=== PATIENT | female | born 1950 | race Caucasian/White ===

== ENCOUNTER 2019-12-29 13:34 | Outpatient (CLI) | payer MEDICARE, OTHER, SELFPAY ==
--- NOTE | ~2019-12-29 | MR_ITS ---
EXAMINATION: MR abdomen wo/w con DATE: 12/29/2019 15:12 INDICATION: Pancreatic cyst. TECHNIQUE: Magnetic resonance imaging (MRI) of the abdomen was performed without and with 19 mL Multi Christiano intravenous contrast. Sequences included coronal T2-weighted FS FSE, coronal and axial FS FIEST A, axial T2-weighted FSE, coronal LAVA-flex, axial STIR FSE, axial DWI, axial dual-echo T1-weighted F SPGR, and axial LAVA. Postcontrast sequences included coronal LAVA-flex and a time course of axial LA VA. COMPARISON: CT abdomen 07/20/2019, chest CT 07/10/2018 FINDINGS: There is diffuse hepatic steatosis. The biliary tree is normal status post cholecystectomy. The splee n is normal. There are approximately 7 cystic lesions in the pancreas measuring up to 2.7 cm. The adr enal glands and kidneys are normal. There are no dilated loops of bowel. There are no pathologically enlarged lymph nodes. There is no free intraperitoneal fluid. IMPRESSION: 1. 7 cystic lesions of the pancreas measuring up to 2.7 cm, low risk by imaging. At least the [address] lesions are stable from 07/10/2018. The differential diagnosis includes pseudocyst, intraductal pap illary mucinous neoplasm (IPMN), mucinous cystic neoplasm (MCN), serous cystadenoma, and neuroendocri ne tumor. Abdomen MRI without and with contrast is recommended in 6 months. Reviewed, dictated and finalized at location A. IMPRESSION: 1. 7 cystic lesions of the pancreas measuring up to 2.7 cm, low risk by imaging . At least the 2 largest lesions are stable from 07/10/2018. The differential di agnosis includes pseudocyst, intraductal papillary mucinous neoplasm (IPMN), mu cinous cystic neoplasm (MCN), serous cystadenoma, and neuroendocrine tumor. Abd omen MRI without and with contrast is recommended in 6 months.
[2019-12-29 14:14] LABS: Estimated Glomerular Filt Rate 45
== END 2019-12-29 13:35 | disposition home or self-care (01) ==
PROVIDERS: PCP Family Medicine; Visit Provider Nurse Practitioner Adult Health
DX: K86.2 Cyst of pancreas (principal)
CPT/HCPCS: 36415; 74183; A9577

== ENCOUNTER 2020-04-15 09:47 | Outpatient (CLI) | payer MEDICARE, OTHER, SELFPAY ==
--- NOTE | ~2020-04-15 | CT_ITS ---
EXAMINATION: CTA neck EXAM DATE: 04/15/2020 10:39 INDICATION: Partial retinal artery occlusion both eyes.. TECHNIQUE: Spiral CTA of the carotid arteries was performed with intravenous injection 100cc of Omnip aque 350. Axial, coronal, sagittal reformatted images reviewed. Additional reformatted images creat ed on dedicated 3-D workstation. NASCET comparable standard used to assess the degree of arterial st enosis. The dose-length product (DLP) for this examination was 543.42 mGy-cm. The exposure was tail ored according to patient size (auto mA exposure control), and iterative reconstruction (ASIR) was us ed as additional dose reduction technique. Comparison is made to prior examination from 07/20/2019. FINDINGS: There is large amount of bilateral carotid bulb plaque, both calcified and noncalcified. Ri ght carotid bulb has 56% stenosis, not significantly changed. Left carotid bulb as 57% stenosis, mild progression compared to June (previously estimated at 40%). There is no carotid or vertebral ar terial dissection. Scattered bilateral carotid siphon arterial sclerosis. The vertebral arteries are codominant. Lung apices and sinuses are clear. Bilateral cataract surgery. Cervical spondylosis. IMPRESSION: 1. Right carotid bulb 56% stenosis. 2. Left carotid bulb 57% stenosis. Reviewed, dictated and finalized at location B.
[2020-04-15 10:22] LABS: Estimated Glomerular Filt Rate 37
== END 2020-04-15 09:48 | disposition home or self-care (01) ==
PROVIDERS: PCP Family Medicine; Referring Provider Internal Medicine Gastroenterology; Visit Provider Nurse Practitioner Adult Health
DX: H34.213 Partial retinal artery occlusion, bilateral (principal); I65.23 Occlusion and stenosis of bilateral carotid arteries
CPT/HCPCS: 36415; 70498; Q9967

== ENCOUNTER 2020-04-18 13:27 | Outpatient (CLI) | payer MEDICARE, OTHER, SELFPAY ==
--- NOTE | ~2020-04-18 | CT_ITS ---
EXAMINATION: CTA chest abdomen DATE: 04/18/2020 14:42 INDICATION: Partial retinal artery occlusion, history of pancreatic cysts TECHNIQUE: Computed tomographic angiography (CTA) of the chest and abdomen was performed with 100 mL Omnipque-350 intravenous contrast. Maximum intensity projection 3D-reconstructions of the aorta and o ther arteries were constructed by the technologist on a separate workstation. The dose-length product (DLP) was 1165.22 mGy-cm. Automated exposure control and iterative reconstruction technique were emp loyed. COMPARISON: None. FINDINGS: CHEST CTA: There is no aneurysm or dissection of the thoracic aorta. Calcified atherosclerosis is noted. There a re also coronary artery calcifications. There is mild dependent atelectasis. No pleural effusion or p neumothorax is identified. No pathologically enlarged thoracic lymph nodes are identified. The heart size is normal. There is enlargement of the main and central pulmonary arteries, consistent with pulm onary hypertension. There is moderate thoracic spondylosis. ABDOMEN CTA: There is calcified atherosclerosis of the aorta and many of the other arteries. There is no aneurysm or dissection of the aorta. The celiac axis, superior mesenteric artery, and inferior mesenteric josy ry are normal in caliber. There are single renal arteries bilaterally. The liver is diffusely low in attenuation when compared with the spleen, consistent with hepatic steatosis. The gallbladder is surg ically absent. The spleen and adrenal glands are normal. There are multiple stable cysts of the pancr eas which have been previously described. There are no pathologically enlarged abdominal lymph nodes. There is no free intraperitoneal gas or evidence of bowel obstruction. A large volume of colonic sto ol is present. There is severe lumbar spondylosis. IMPRESSION: 1. Mild atherosclerosis of the thoracic and abdominal aorta without aneurysm or dissection. 2. Multiple cystic lesions of the pancreas for which differential and follow-up recommendations have been previously given. Reviewed, dictated and finalized at location A.
[2020-04-18 14:35] LABS: Estimated Glomerular Filt Rate 37
== END 2020-04-18 13:28 | disposition home or self-care (01) ==
PROVIDERS: PCP Family Medicine; Visit Provider Nurse Practitioner Adult Health
DX: H34.213 Partial retinal artery occlusion, bilateral (principal); I70.0 Atherosclerosis of aorta
CPT/HCPCS: 36415; 71275; 74175; Q9967

== ENCOUNTER 2020-09-01 14:08 | Observation (INO) | payer MEDICARE, OTHER, SELFPAY ==
--- NOTE | ~2020-09-01 | XR_ITS ---
XR abdomen/kub 1V DATE: 09/01/2020 19:47 INDICATION: Abdominal pain, diarrhea, constipation TECHNIQUE: 2 supine AP views of the abdomen and pelvis COMPARISON: 04/18/2020 CTA chest and abdomen FINDINGS: Surgical clips overlie the right upper quadrant, consistent with cholecystectomy, documente d on the 04/18/2020 CT examination of the abdomen. There is interval mild gaseous distention of some small bowel segments but no apparent abnormal dilat ation of the small or large bowel. Findings suggest mild adynamic ileus, less likely an early or part ial small bowel obstruction. The psoas shadows are intact. No visceromegaly is evident. No significant abnormal calcification is n oted. IMPRESSION: Nonspecific mild small bowel gaseous distention Status post cholecystectomy Reviewed, dictated and finalized at [facility]. Reviewed, dictated and finalized at location A. ESSING ARCHIVIST
[2020-09-01 14:14] VITALS: BP 124/53; PULSE 97; RESP 18; TEMP 37.1; O2SAT 97
--- NOTE | 2020-09-01 14:26 | ED.NAVMDI ---
HPI - Nausea/Vomiting/Diarrhea General Chief complaint: Nausea/Vomiting/Diarrhea Stated complaint: dehydration Time Seen by Provider: 09/01/20 14:16 Source: patient Mode of arrival: ambulatory Limitations: no limitations History of Present Illness HPI Narrative: Patient 69-year-old female complaining of diarrhea described as loose watery nonbloody started early this morning. Patient states that she has had approximately 6-7 episodes of loose watery stools since this morning. She denies any abdominal pain, nausea vomiting, fever or chills. Related Data Home Medications Medication Instructions Recorded Confirmed amlodipine 09/01/20 fluticasone propion-salmeterol INHALATION 09/01/20 [Advair HFA] hydrochlorothiazide 25 mg PO DAILY 09/01/20 levothyroxine [Levoxyl] 112 mcg PO DAILY 09/01/20 losartan 09/01/20 metformin mg PO 09/01/20 montelukast mg 09/01/20 piroxicam 20 mg PO DAILY 09/01/20 09/01/20 rosuvastatin mg 09/01/20 tolterodine [Detrol LA] mg PO 09/01/20 Allergies Allergy/AdvReac Type Severity Reaction Status Date / Time No Known Allergies Allergy Unverified 07/30/18 16:06 Review of Systems Review of Systems: All systems reviewed & are unremarkable except as noted in HPI and below Constitutional: Constitutional: Denies body ache(s), Denies chills, Denies excessive sweating, Denies fatigue, Denies fever(s), Denies headache(s), Denies lethargy, Denies malaise, Denies weakness and Denies weight loss Eyes: Eyes: Denies blurry vision, Denies change in vision and Denies loss of vision ENT: Denies dizziness, Denies ear discharge, Denies headache(s), Denies lip swelling, Denies epistaxis, Denies nasal congestion, Denies neck pain, Denies throat swelling and Denies tongue swelling Cardiovascular: Cardiovascular: Denies chest pain, Denies chest pain at rest, Denies chest pain with activity, Denies diaphoresis, Denies rapid heart rate, Denies edema, Denies irregular heart rhythm, Denies lightheadedness, Denies palpitations, Denies dyspnea and Denies dyspnea on exertion Respiratory: Respiratory: Denies chest congestion, Denies cough, Denies hemoptysis, Denies dyspnea and Denies dyspnea on exertion Gastrointestinal: Gastrointestinal: Denies abdominal pain, Denies melena, Denies hematochezia, Denies nausea, Denies vomiting and Denies hematemesis Musculoskeletal: Musculoskeletal: Denies abnormal gait, Denies deformity, Denies joint swelling, Denies limited range of motion, Denies neck pain and Denies numbness Neurologic: Denies Abnormal speech present, Denies abnormal gait, Denies confusion, Denies dizziness, Denies headache(s), Denies focal weakness, Denies loss of vision, Denies numbness, Denies Other visual disturbances, Denies Sensory deficit (Neuro) and Denies weakness Psychiatric: Psychiatric: Denies confusion, Denies depression, Denies auditory hallucinations, Denies homicidal ideation and Denies suicidal ideation Endocrine: Endocrine: Denies cold intolerance, Denies excessive sweating, Denies fatigue, Denies heat intolerance and Denies palpitations Hematologic/Lymphatic: Hematologic/Lymphatic: Denies easy bleeding and Denies easy bruising Allergic/Immunologic: Allergic/Immunologic: Denies lip swelling, Denies throat swelling and Denies tongue swelling [facility] Family History Family History (Updated 04/04/18 @ 15:47 by DOCTOR UNKNOWN) Father Family history of lung cancer Mother Family history of irritable bowel syndrome Other Cerebrovascular accident Diabetes mellitus Family history of arthritis Family history of cardiovascular disease Family history of congestive heart failure Family history of hearing loss Social History Social History Smoking status: Never smoker Alcohol intake: never Exam Const: General: cooperative, healthy appearing, comfortable, no acute distress, well developed, alert and awake; No confusion Orientation/consciousness: oriented to person, oriented to efrain
[2020-09-01 14:38] LABS: Basophils Percent Auto 0.3 % (0.2-1.2); Eosinophils Absolute Auto 0.1 K/mm3 (0-0.3); Eosinophils Percent Auto 1.2 % (0-4.4); Hematocrit 39.7 % (37.0-47.0); Hemoglobin 12.8 g/dL (12.0-15.0); Immature Granulocyte Absolute 0.08 K/mm3 (0.00-0.031); Immature Granulocyte Percent A 1.4 % (0-0.5); Lymphocytes Absolute Auto 0.76 K/mm3 (0.9-3.2); Lymphocytes Percent Auto 13.1 % (18.3-44.2); Mean Corpuscular HGB Conc 32.2 g/dl (32-36); Mean Corpuscular Volume 80.5 fl (80-100); Mean Platelet Volume 10.1 fl (7.4-10.4); Monocytes Absolute Auto 0.7 K/mm3 (0.1-0.6); Monocytes Percent Auto 12.7 % (2.6-8.5); Neutrophils Absolute Auto 4.2 K/mm3 (1.3-6.7); Neutrophils Percent Auto 71.3 % (45.5-73.1); Platelet Count Result 169 k/mm3 (150-375); Red Blood Count 4.93 M/mm3 (4.2-5.4); Red Cell Distribution Width 13.1 % (11.5-14.5); White Blood Count 5.8 K/mm3 (4.5-10.0)
[2020-09-01 14:45] LABS: Alanine Aminotransferase 57 U/L (4-35); Alkaline Phosphatase 85 U/L (38-126); Anion Gap 13 mmol/L (8-16); Aspartate Amino Transferase 64 U/L (14-36); Bilirubin,Total 0.5 mg/dL (0.2-1.3); Blood Urea Nitrogen 42 mg/dL (7-17); Calcium 9.4 mg/dL (8.4-10.2); Carbon Dioxide 18 mmol/L (22-30); Chloride 105 mmol/L (98-107); Estimated CRCL calculation 29 ml/min; Estimated Glomerular Filt Rate 28; Glucose 132 mg/dL (65-105); Lipase 117 U/L (23-300); Potassium 3.8 mmol/L (3.4-5.0); Sodium 136 mmol/L (137-145)
[2020-09-01] MEDS: SODIUM CHLORIDE 0.9% IV 1,000 ML 999 ML IV CONT (14:49)
[2020-09-01 15:55] LABS: Add Urine Microscopic? YES; Appearance Urine Cloudy (Clear); Bilirubin Urine Negative (Negative); Blood Urine Negative (Negative); Color Urine Yellow (Yellow); Glucose Urine UA Negative (Negative); Hyaline Casts Urine 30-49 /lpf; Ketones Urine Negative (Negative); Leukocyte Esterase Ur 3+ LEU/UL (Negative); Mucus Urine Rare /lpf; Nitrate Urine Negative (Negative); Protein Urine 1+ mg/dL (Negative); Specific Grav Ur 1.015 (1.001-1.035); Squamous Epithelial Cell Urine Many /hpf (Few); Transitional Epi Cells Urine Few /hpf (None Seen); Urobilinogen Urine Negative mg/dL (<2.0); WBC Urine >75 /hpf
[2020-09-01] MEDS: CIPROFLOXACIN 250 MG TABLET PO (16:56)
[2020-09-01 16:59] VITALS: BP 122/78; PULSE 78; RESP 18; O2SAT 99
--- NOTE | 2020-09-01 18:35 | ADMGEN ---
This patient, Katelin Edgar, was admitted to Medical Room 245-. Patient/family oriented to hospital policies and general routines including ID bracelet, bed and alarms, visiting hours, pain management, procedures, bathroom and other care routines, personal items, smoking policy, room service/diet, and visiting hours. Information on how to activate the Rapid Response Team has been discussed. Patient/Family are encouraged to report perceived risks to care and to ask questions if they do not understand what they are told or what they should do.
[2020-09-01 18:46] VITALS: BP 133/52; PULSE 85; RESP 16; TEMP 35.7; O2SAT 98
[2020-09-01 19:04] LABS: Glucose Point of Care 123 (65-105)
--- NOTE | 2020-09-01 19:25 | PM.IMHP ---
H&P: HPI History of Present Illness Date/Time: 09/01/20 19:25 Chief complaint: Acute Kidney Injury/Dehydration Narrative: This is a pleasant 69 year female with known past medical history of hypothyroidism, hypertension, hyperlipidemia, diastolic heart failure, and steatohepatitis among other comorbidities who presented to the hospital today with a complaint of 4-5 loose watery stools today. She also had diarrhea yesterday. She believes that she might have irritable bowel syndrome because she will go days where she is constipated and does not have any bowel movements and then have diarrhea. She last had a colonoscopy about 3 years ago which demonstrated bleeding hemorrhoids. today her only other complaint is that she has had chills for the past couple of days although she denies any overt fever. She also denies any nausea or vomiting and has tolerated a full liquid diet tonight in the hospital. Today she also complains of mild left lower quadrant abdominal discomfort and abdominal bloating. The patient was evaluated emergency room today and routine labs demonstrated acute dehydration with acute renal failure. Urinalysis was suspicious for possible urinary tract infection. On my encounter with the patient tonight she still is complaining of mild left lower quadrant abdominal discomfort and has asked if we could have her computer aided design technician, Dr. main see her tomorrow. The patient denies any dysuria, hematuria, urinary frequency, rectal bleeding, or black tarry stools. The patient has been treated with IV fluids and IV antibiotics in the emergency room this evening and we have been asked to admit the patient to the hospital for further care. She has no other complaints at this time. Review of Systems Review of Systems: All systems reviewed & are unremarkable except as noted in HPI and below PMFSH Past Medical History Medical History (Updated 09/01/20 @ 19:41 by Faheem Toth MD) Aortic stenosis Chronic low back pain COPD (chronic obstructive pulmonary disease) Depression Diastolic congestive heart failure Hyperlipidemia Hypertension Hypothyroidism Obstructive sleep apnea Steatohepatitis Surgical History Surgical History (Updated 09/01/20 @ 19:35 by Faheem Toth MD) H/O colonoscopy H/O: hysterectomy History of cholecystectomy Hx of cataract surgery Hx of tonsillectomy Family History Family History Father Family history of lung cancer Mother Family history of irritable bowel syndrome Other Cerebrovascular accident Diabetes mellitus Family history of arthritis Family history of cardiovascular disease Family history of congestive heart failure Family history of hearing loss Social History Social History Smoking status: Never smoker Alcohol intake: never Substance use: never Gender identity (if verbalized by the patient): Female Spiritual care concerns: No Meds Home Medications and Allergies Home Medications Medication Instructions Recorded Confirmed Type amlodipine 09/01/20 History aspirin [Adult Aspirin] 81 mg PO DAILY 09/01/20 09/01/20 History fluticasone propion-salmeterol INHALATION 09/01/20 History [Advair HFA] hydrochlorothiazide 25 mg PO DAILY 09/01/20 09/01/20 History levothyroxine [Levoxyl] 112 mcg PO DAILY 09/01/20 History losartan 09/01/20 History metformin mg PO 09/01/20 History methylcellulose (laxative) [Fiber 500 mg PO BID 09/01/20 09/01/20 History Therapy Laxative] montelukast mg 09/01/20 History nystatin 1 applic TOPICAL BID PRN 09/01/20 09/01/20 History pimecrolimus 1 applic TOPICAL BID PRN 09/01/20 09/01/20 History piroxicam 20 mg PO DAILY 09/01/20 09/01/20 History quetiapine 25 mg PO HS 09/01/20 09/01/20 History rosuvastatin mg 09/01/20 History tolterodine [Detrol LA] mg PO 09/01/20 History Allergies Allergy/AdvReac Type Severity Reaction Status Date / Time No K
[2020-09-01] MEDS: LACTATED RINGERS 1,000 ML 100 ML IV CONT (20:22)
[2020-09-01] MEDS: ROSUVASTATIN 10 MG TABLET 20 MG PO (21:09)
[2020-09-01] MEDS: QUEtiapine FUMARATE 25 MG TABLET PO (21:09)
[2020-09-01 21:23] LABS: Glucose Point of Care 137 (65-105)
[2020-09-01 22:00] VITALS: BP 117/52; PULSE 78; RESP 18; TEMP 36.6; O2SAT 98
[2020-09-01] MEDS: MELATONIN 3 MG TABLET PO (22:36)
[2020-09-02 05:52] LABS: Basophils Percent Auto 0.2 % (0.2-1.2); Eosinophils Absolute Auto 0.2 K/mm3 (0-0.3); Eosinophils Percent Auto 3.3 % (0-4.4); Hematocrit 36.8 % (37.0-47.0); Hemoglobin 11.9 g/dL (12.0-15.0); Immature Granulocyte Absolute 0.01 K/mm3 (0.00-0.031); Immature Granulocyte Percent A 0.2 % (0-0.5); Lymphocytes Absolute Auto 1.09 K/mm3 (0.9-3.2); Lymphocytes Percent Auto 19.9 % (18.3-44.2); Mean Corpuscular HGB Conc 32.3 g/dl (32-36); Mean Corpuscular Hemoglobin 25.9 pg (26-34); Mean Corpuscular Volume 80.2 fl (80-100); Mean Platelet Volume 10.4 fl (7.4-10.4); Monocytes Absolute Auto 0.8 K/mm3 (0.1-0.6); Monocytes Percent Auto 14.1 % (2.6-8.5); Neutrophils Absolute Auto 3.4 K/mm3 (1.3-6.7); Neutrophils Percent Auto 62.3 % (45.5-73.1); Platelet Count Result 153 k/mm3 (150-375); Red Blood Count 4.59 M/mm3 (4.2-5.4); Red Cell Distribution Width 12.9 % (11.5-14.5); White Blood Count 5.5 K/mm3 (4.5-10.0)
[2020-09-02] MEDS: LACTATED RINGERS 1,000 ML 100 ML IV CONT (05:56)
[2020-09-02] MEDS: LEVOTHYROXINE SODIUM 112 MCG TABLET PO (05:57)
[2020-09-02 06:00] VITALS: BP 136/50; PULSE 76; RESP 18; TEMP 36.9; O2SAT 98
[2020-09-02 06:08] LABS: Alanine Aminotransferase 49 U/L (4-35); Albumin Level 3.3 g/dL (3.5-5.1); Alkaline Phosphatase 73 U/L (38-126); Anion Gap 8 mmol/L (8-16); Aspartate Amino Transferase 56 U/L (14-36); Bilirubin,Total 0.3 mg/dL (0.2-1.3); Blood Urea Nitrogen 28 mg/dL (7-17); Calcium 9.2 mg/dL (8.4-10.2); Carbon Dioxide 24 mmol/L (22-30); Chloride 107 mmol/L (98-107); Estimated CRCL calculation 43 ml/min; Estimated Glomerular Filt Rate 45; Glucose 100 mg/dL (65-105); Potassium 3.2 mmol/L (3.4-5.0); Sodium 139 mmol/L (137-145)
[2020-09-02 07:27] LABS: Glucose Point of Care 108 (65-105)
[2020-09-02] MEDS: POTASSIUM CHLORIDE 20 MEQ TABLET PO (09:10)
[2020-09-02] MEDS: TOLTERODINE TARTRATE LA 4 MG CAP.ER.24H PO (09:10)
[2020-09-02] MEDS: amLODIPine BESYLATE 5 MG TABLET 10 MG PO (09:11)
[2020-09-02 11:38] LABS: Glucose Point of Care 152 (65-105)
--- NOTE | 2020-09-02 13:00 | WPDGICN ---
Assessment and Plan Assessment and plan (1) Diarrhea: Qualifiers: Diarrhea type: unspecified type Qualified Code(s): R19.7 - Diarrhea, unspecified Code(s): R19.7 - Diarrhea, unspecified Status: Acute Assessment and Plan: Patient has alteration in bowel habits with diarrhea alternating with constipation she only had 1 day of diarrhea prior to admission. Should diarrhea persist would recommend stool cultures be obtained however at this point would advise fiber supplementation. Perhaps Kaopectate may be of some benefit. Follow-up electively in the office is advised for what appears to be irritable bowel syndrome. (2) Acute dehydration: Code(s): E86.0 - Dehydration Status: Acute Assessment and Plan: Patient noted to have azotemia on presentation. Likely related to the head dehydration. She appears quite improved with overnight IV fluid rehydration. Hopefully she can be discharged today if others agree in diet tolerated. (3) COPD (chronic obstructive pulmonary disease): Qualifiers: COPD type: unspecified COPD Qualified Code(s): J44.9 - Chronic obstructive pulmonary disease, unspecified Code(s): J44.9 - Chronic obstructive pulmonary disease, unspecified Status: Chronic (4) Diastolic congestive heart failure: Qualifiers: Heart failure chronicity: chronic Qualified Code(s): I50.32 - Chronic diastolic (congestive) heart failure Code(s): I50.30 - Unspecified diastolic (congestive) heart failure Status: Chronic (5) Elevated liver enzymes: Code(s): R74.8 - Abnormal levels of other serum enzymes Status: Chronic Assessment and Plan: Very mild elevation of serum transaminases are noted. This been attributed to nonalcoholic steatohepatitis. Plan is to follow conservatively at this point. These can be monitored as an outpatient. GI Consult Note Consult date/time: 09/02/20 13:00 HPI: Katelin Edgar is a 69 year old female Seen in evaluation at the request of the hospitalist service. Patient has a history of irregular bowel movements. This has been attributed to irritable bowel syndrome. She states she had diarrhea briefly for 1 day prior to admission the hospital. For this reason presented the emergency room where she was found to have modest azotemia. She was admitted the hospital for IV rehydration. Patient states that today she has had no additional bowel movements. She denies any abdominal pain or fever. She denies any nausea or vomiting. She typically has diarrhea alternating with constipation. She denies any blood loss. She denies any fever. She has had no recent travel. Review of Systems Review of Systems: All systems reviewed & are unremarkable except as noted in HPI and below PMFSH Past Medical History Medical History (Updated 09/01/20 @ 19:41 by Faheem Toth MD) Aortic stenosis Chronic low back pain COPD (chronic obstructive pulmonary disease) Depression Diastolic congestive heart failure Hyperlipidemia Hypertension Hypothyroidism Obstructive sleep apnea Steatohepatitis Surgical History Surgical History (Updated 09/01/20 @ 19:35 by Faheem Toth MD) H/O colonoscopy H/O: hysterectomy History of cholecystectomy Hx of cataract surgery Hx of tonsillectomy Family History Family History Father Family history of lung cancer Mother Family history of irritable bowel syndrome Other Cerebrovascular accident Diabetes mellitus Family history of arthritis Family history of cardiovascular disease Family history of congestive heart failure Family history of hearing loss Social History Social History Smoking status: Never smoker Alcohol intake: never Substance use: never Gender identity (if verbalized by the patient): Female Spiritual care concerns: No Meds Home Medications and Allergies Home
[2020-09-02 14:00] VITALS: BP 110/62; PULSE 79; RESP 14; TEMP 36.7; O2SAT 100
[2020-09-02 16:12] LABS: Glucose Point of Care 119 (65-105)
--- NOTE | 2020-09-02 17:48 | PM.DS ---
DS: Admitting Diagnosis Admitting Diagnosis Admitting Diagnosis: Acute Kidney Injury/Dehydration DS: Discharge Diagnosis Discharge Diagnosis (1) Diarrhea: Qualifiers: Diarrhea type: unspecified type Qualified Code(s): R19.7 - Diarrhea, unspecified Code(s): R19.7 - Diarrhea, unspecified Status: Acute Assessment and Plan: Patient presents to the emergency room complaints of diarrhea. KUB showed nonspecific mild small bowel distention. Patient most likely had gastroenteritis causing a mild adynamic ileus. Cannot exclude a component of irritable bowel syndrome. Patient has not had any further diarrhea since admission. She was seen by GI. Was started on clear liquid diet and diet advanced. She tolerated this well. No clinical findings or other symptoms to suggest partial small-bowel obstruction. Patient is eager for discharge. She is passing flatus. Patient will be discharged home on 09/02/2020 (2) Abdominal discomfort in left lower quadrant: Code(s): R10.32 - Left lower quadrant pain Status: Acute Assessment and Plan: Related to above. (3) Acute kidney injury: Code(s): N17.9 - Acute kidney failure, unspecified Status: Acute Assessment and Plan: BUN 42 and Cr 1.8 on admission secondary to acute dehydration. Started on IV fluid and Cr now 1.2 which is within her baseline. (4) Acute dehydration: Code(s): E86.0 - Dehydration Status: Acute Assessment and Plan: As above. Better with rehydration. (5) Elevated liver enzymes: Code(s): R74.8 - Abnormal levels of other serum enzymes Status: Chronic Assessment and Plan: AST 64 and ALT 57 on admission. Trending down on repeat. Appears to be secondary to the patient has a known history of steatosis. Monitor LFTs as outpatinet. (6) Abnormal urinalysis: Code(s): R82.90 - Unspecified abnormal findings in urine Status: Acute Assessment and Plan: UA noted and showing >75WBC and 3+LE but with many squamous cells. UCx pending. Treated with IV ceftriaxone x2 doses. Continue as Cipro at dicharge. Follow up on UCx (7) Hypertension: Qualifiers: Hypertension type: unspecified Qualified Code(s): I10 - Essential (primary) hypertension Code(s): I10 - Essential (primary) hypertension Status: Chronic Assessment and Plan: Patient's blood pressure was followed closely. Blood pressure remains well controlled. We continued amlodipine. We held hydrochlorothiazide and losartan secondary to acute renal failure. (8) Hyperlipidemia: Qualifiers: Hyperlipidemia type: unspecified Qualified Code(s): E78.5 - Hyperlipidemia, unspecified Code(s): E78.5 - Hyperlipidemia, unspecified Status: Chronic Assessment and Plan: Stable. LFTs only mildly elevated. Crestor was continued. (9) Hypothyroidism: Qualifiers: Hypothyroidism type: unspecified Qualified Code(s): E03.9 - Hypothyroidism, unspecified Code(s): E03.9 - Hypothyroidism, unspecified Status: Chronic Assessment and Plan: Stable. Continue levothyroxine. (10) COPD (chronic obstructive pulmonary disease): Qualifiers: COPD type: unspecified COPD Qualified Code(s): J44.9 - Chronic obstructive pulmonary disease, unspecified Code(s): J44.9 - Chronic obstructive pulmonary disease, unspecified Status: Chronic Assessment and Plan: Stable. We continued bronchodilators as needed. (11) Diastolic congestive heart failure: Qualifiers: Heart failure chronicity: chronic Qualified Code(s): I50.32 - Chronic diastolic (congestive) heart failure Code(s): I50.30 - Unspecified diastolic (congestive) heart failure Status: Chronic Assessment and Plan: Currently compensated. We monitored her fluid status closely. DS: S
--- NOTE | 2020-09-05 10:07 | PC.NURSE ---
Urine culture shows 2 organisms with low colony count. Possible contamination. Dr. Alia marie.
== END 2020-09-02 18:58 | disposition home or self-care (01) ==
LOC: ANHED 16:56 → ANH2MED 17:44
PROVIDERS: Family Medicine; Admitting Provider Family Medicine; Emergency Provider Emergency Medicine; PCP Family Medicine; Visit Provider Internal Medicine
DX: N17.9 Acute kidney failure, unspecified (principal); E86.0 Dehydration; R19.7 Diarrhea, unspecified; R10.32 Left lower quadrant pain; R82.90 Unspecified abnormal findings in urine; R74.8 Abnormal levels of other serum enzymes; I50.32 Chronic diastolic (congestive) heart failure; E03.9 Hypothyroidism, unspecified; E78.5 Hyperlipidemia, unspecified; K75.81 Nonalcoholic steatohepatitis (NASH); I11.0 Hypertensive heart disease with heart failure; J44.9 Chronic obstructive pulmonary disease, unspecified; G89.29 Other chronic pain; M54.5 Low back pain; G47.33 Obstructive sleep apnea (adult) (pediatric)
CPT/HCPCS: 36415; 74018; 80053; 81001; 83690; 85025; 87077; 87086; 87088; 87186; 96361; 96365; 99285; A9270; G0378; J0696; J7030; J7120

== ENCOUNTER 2020-10-29 08:49 | Outpatient (CLI) | payer MEDICARE, OTHER, SELFPAY ==
--- NOTE | ~2020-10-29 | US_ITS ---
US right upper quadrant INDICATION: Elevated liver function tests. PROCEDURE: Realtime right upper abdominal ultrasound. COMPARISON: Ultrasound dated 06/09/2007 FINDINGS: The pancreas is normal without focal mass or pancreatic ductal dilation. Liver echotexture is normal without focal mass or intrahepatic biliary dilatation. There is normal directional flow i n the portal vein. Gallbladder is surgically absent. Common bile duct measures 4 mm. IMPRESSION: 1: Unremarkable limited abdominal ultrasound. Reviewed, dictated and finalized at location A. TH OFFICER
== END 2020-10-29 08:50 | disposition home or self-care (01) ==
PROVIDERS: PCP Family Medicine; Visit Provider Internal Medicine Endocrinology, Diabetes & Metabolism
DX: R74.01 Elevation of levels of liver transaminase levels (principal)
CPT/HCPCS: 76705

== ENCOUNTER → 2021-02-25 15:12 | Outpatient (CLI) | payer MEDICARE, OTHER, SELFPAY ==
--- NOTE | ~2021-02-25 | XR_ITS ---
EXAMINATION: XR knee LT 2V, XR knee RT 2V DATE: 02/25/2021 15:42 INDICATION: Bilateral posterior knee pain. TECHNIQUE: 1. AP and lateral views of the left knee were obtained. 2. AP and lateral views of the right knee were obtained. COMPARISON: None. FINDINGS: Right knee: Right total knee arthroplasty with patellar resurfacing which appears well seated and in near anatomi c alignment. No periprosthetic lucency to suggest loosening or infection. No fracture. Small right kn ee joint effusion. Left knee: Alignment is normal. No fracture. Small marginal osteophytes at the medial and lateral compartments w ith relatively preserved joint spaces. Additional tiny patellar marginal osteophytes. Moderate-sized enthesophyte at the quadriceps insertion to the proximal patella. No left knee joint effusion. Subcut aneous varicosities along the medial side of the distal left thigh, knee and proximal calf. IMPRESSION: 1. Mild tricompartmental osteoarthritis at the left knee with no joint effusion or acute osseous abno rmality. 2. Right total knee arthroplasty with small right knee joint effusion but no acute osseous abnormalit y. Reviewed, dictated and finalized at location A. IMPRESSION: 1. Mild tricompartmental osteoarthritis at the left knee with no joint effusion or acute osseous abnormality. 2. Right total knee arthroplasty with small right knee joint effusion but no ac [place] osseous abnormality.
== END ==
PROVIDERS: PCP Family Medicine; Visit Provider Family Medicine
DX: M25.561 Pain in right knee (principal); M25.562 Pain in left knee; M17.0 Bilateral primary osteoarthritis of knee; Z96.651 Presence of right artificial knee joint; M25.461 Effusion, right knee
CPT/HCPCS: 73560

== ENCOUNTER → 2021-05-26 09:12 | Outpatient (CLI) | payer MEDICARE, OTHER, SELFPAY ==
--- NOTE | ~2021-05-26 | MMUS_ITS ---
EXAMINATION: MM diagnostic arash BI w ginger, US breast BI complete HISTORY: Follow-up breast asymmetries TECHNIQUE: Additional 3-D tomosynthesis images of the breasts were performed and synthetic 2-D images were generated. CAD analysis was submitted and interpreted. High resolution complete bilateral breas t ultrasound was performed. COMPARISON: Comparison to multiple prior studies sequentially, with oldest reviewed study dated 02/2017. BREAST PARENCHYMAL COMPOSITION: The breasts are heterogenously dense, which may obscure small masses. FINDINGS: MAMMOGRAPHIC FINDINGS: There are no suspicious masses, calcifications or architectural distortion in either breast to sugges t malignancy. ULTRASOUND: Right breast ultrasound: At 2:00, 6 cm from the nipple in the area of palpable concern there is an ov al hypoechoic mass measuring 6 mm, consistent with benign lipoma. At 7:00, 7 cm from the nipple, ther e is a 3 mm cyst. Left breast ultrasound: Normal heterogeneous echotexture without focal mass. IMPRESSION: 1. No evidence for malignancy in either breast. 2. Routine yearly screening mammogram and regular clinical breast examination are recommended. BI-RADS Category 2: Benign finding(s). Reviewed, dictated and finalized at location A. IMPRESSION: 1. No evidence for malignancy in either breast. 2. Routine yearly screening mammogram and regular clinical breast examination a re recommended. BI-RADS Category 2: Benign finding(s).
== END ==
PROVIDERS: PCP Family Medicine; Visit Provider Nurse Practitioner Family
DX: N63.10 Unspecified lump in the right breast, unspecified quadrant (principal); R92.8 Other abnormal and inconclusive findings on diagnostic imaging of breast
CPT/HCPCS: 76641; 77062; 77066; G0279

== ENCOUNTER → 2021-06-11 16:05 | Outpatient (CLI) | payer MEDICARE, OTHER, SELFPAY ==
--- NOTE | ~2021-06-11 | DEXA_ITS ---
Bone Density Report Name: Katelin Edgar Age: 70 Sex: Female Ethnicity: White Date of : 1950 Indication: postmenopausal; screening for osteoporosis; height loss; prior fracture; asthma or emphysema; hysterectomy; Referring Provider: MATT, TRINI Urias Study: Bone densitometry was performed. Exam Date: June 11, 2021 Accession number: [id number] Bone Density: Region BMD T-score Z-score Classification AP Spine (L1-L4) 0.986 -0.6 1.5 Normal Femoral Neck (Left) 0.670 -1.6 0.2 Osteopenia Total Hip (Left) 0.925 -0.1 1.3 Normal Femoral Neck (Right) 0.708 -1.3 0.5 Osteopenia Total Hip (Right) 0.823 -1.0 0.5 Normal Total Hip Mean 0.874 -0.6 0.9 Normal World Health Organization criteria for BMD impression classify patients as: Normal (T-score at or above -1.0), Osteopenia (T-score between -1.0 and -2.5), or Osteoporosis (T-score at or below -2.5). 10-year Fracture Risk(1): Major Osteoporotic Fracture 16% Hip Fracture 2.2% Reported Risk Factors: [place] (), Neck BMD=0.670, BMI=30.3, previous fracture (1) FRAX(R) Version 3.08. Fracture probability calculated for an untreated patient. Fracture probability may be lower if the patient has received treatment. Previous Exams: Region Exam Age BMD T-score BMD Change BMD Change Date g/cm2 vs Baseline vs Previous AP Spine(L1-L4) 06/11/2021 70 0.986 -0.6 -0.132 -0.078* 01/20/2017 66 1.065 0.2 -0.054 -0.048* 03/08/2012 61 1.113 0.6 -0.005 -0.052 12/23/2008 58 1.165 1.1 0.047* 0.047* 05/31/2006 55 1.118 0.6 Total Hip(Left) 06/11/2021 70 0.925 -0.1 -0.070 -0.023 01/20/2017 66 0.948 0.0 -0.047 0.085* 03/08/2012 61 0.863 -0.6 -0.131 -0.151 12/23/2008 58 1.014 0.6 0.019 0.019 05/31/2006 55 0.995 0.4 Total Hip(Right) 06/11/2021 70 0.823 -1.0 -0.138 -0.074* 01/20/2017 66 0.897 -0.4 -0.064 0.067* 03/08/2012 61 0.830 -0.9 -0.131 -0.137 12/23/2008 58 0.966 0.2 0.006 0.006 05/31/2006 55 0.961 0.2 *Denotes significance at 95% confidence level, LSC for AP Spine = 0.022 g/cm2, LSC for Total Hip = 0.027 g/cm2 Clinical Information Provided by Patient: Has had a low trauma fracture Has used the following medications: Vitamin D Has the following medical conditions: Asth
== END ==
PROVIDERS: PCP Family Medicine; Visit Provider Family Medicine
DX: Z78.0 Asymptomatic menopausal state (principal); M85.89 Other specified disorders of bone density and structure, multiple sites
CPT/HCPCS: 77080

== ENCOUNTER → 2021-08-28 10:19 | Outpatient (CLI) | payer MEDICARE, OTHER, SELFPAY ==
--- NOTE | ~2021-08-28 | US_ITS ---
EXAMINATION: US right upper quadrant DATE: 08/28/2021 10:36 INDICATION: Elevated liver function tests, nonalcoholic steatohepatitis. TECHNIQUE: Multiple grayscale and Doppler ultrasound images of the abdomen were obtained. COMPARISON: 10/29/2020 FINDINGS: The head and body of the pancreas are normal. The pancreatic tail is obscured by bowel gas. The liver is normal with normal echogenicity and echotexture. No surface nodularity. Normal hepatope tk flow in the main portal vein. The gallbladder is surgically absent. The normal common bile duct m easures 5 mm. IMPRESSION: 1. No sonographic correlate for the patient's symptoms. Reviewed, dictated and finalized at location B.
== END ==
PROVIDERS: PCP Family Medicine; Visit Provider Internal Medicine Gastroenterology
DX: K75.81 Nonalcoholic steatohepatitis (NASH) (principal)
CPT/HCPCS: 76705

== ENCOUNTER 2021-09-25 10:49 | Outpatient (CLI) | payer MEDICARE, OTHER, SELFPAY | END 2021-09-25 10:50 | disposition home or self-care (01) | LOC: ANHAUDIO 10:51 | PROVIDERS: PCP Family Medicine; Visit Provider Otolaryngology | DX: H93.13 Tinnitus, bilateral (principal); H90.3 Sensorineural hearing loss, bilateral | CPT/HCPCS: 92557; 92567 ==

== ENCOUNTER 2021-11-20 01:09 | Day surgery (SDC) | payer MEDICARE, OTHER, SELFPAY ==
[2021-11-20 09:46] VITALS: BP 153/64; PULSE 86; RESP 18; TEMP 36.2; O2SAT 100; BMI 31.1
--- NOTE | 2021-11-20 10:16 | WPDANESEPPF ---
Anes - Initial Pre Proc Eval Procedure: Operation Date: 11/20/21 10:45 Proposed Procedures p Esophagogastroduodenoscopy - Jak Islas MD Date/Time: 11/20/21 10:16 Surgeon: Jak Islas MD Pre Op Diagnosis: nausea, vomiting Patient Data Age: 71 Gender: F Height: 1.6 m Weight: 79.6 kg Last Vital Signs Temp 36.2 C L 11/20/21 09:46 Pulse 86 11/20/21 09:46 Resp 18 11/20/21 09:46 BP 153/64 H 11/20/21 09:46 Pulse Ox 100 11/20/21 09:46 Allergies Allergy/AdvReac Type Severity Reaction Status Date / Time No Known Allergies Allergy Verified 11/20/21 09:54 Home Medications Medication Instructions Recorded Confirmed Type albuterol sulfate [ProAir HFA] 2 puff INHALATION QID PRN 09/01/20 11/20/21 History aspirin 81 mg PO DAILY 09/01/20 11/20/21 History hydrochlorothiazide 25 mg PO DAILY 09/01/20 11/20/21 History metformin 250 mg PO BID 09/01/20 11/20/21 History montelukast 10 mg PO DAILY 09/01/20 11/20/21 History piroxicam 20 mg PO DAILY PRN 09/01/20 11/20/21 History quetiapine 25 mg PO HS 09/01/20 11/20/21 History tolterodine [Detrol LA] 4 mg PO DAILY 09/01/20 11/20/21 History cholecalciferol (vitamin D3) 10 10 mcg PO DAILY 09/30/21 11/20/21 History mcg (400 unit) capsule liothyronine 5 mcg tablet 5 mcg PO DAILY 09/30/21 11/20/21 History melatonin 10 mg capsule 10 mg PO QHS 09/30/21 11/20/21 History vitamin B complex 1 tablet PO DAILY 09/30/21 11/20/21 History levothyroxine 88 mcg PO DAILY 11/10/21 11/20/21 History losartan 50 mg PO DAILY 11/10/21 11/20/21 History omeprazole 40 mg PO DAILY PRN 11/10/21 11/20/21 History ropinirole 0.25 mg PO DAILY 11/10/21 11/20/21 History Patient hx anesthesia problems: none Family hx anesthesia problems: none Results Review: All pre-operative results and documents have been reviewed as part of the pre-operative evaluation. [facility] Past Medical History Medical History Aortic stenosis Chronic low back pain COPD (chronic obstructive pulmonary disease) Depression Diastolic congestive heart failure Hyperlipidemia Hypertension Hypothyroidism Irritable bowel syndrome with both constipation and diarrhea Obstructive sleep apnea Pancreatic cyst Steatohepatitis Surgical History Surgical History H/O colonoscopy H/O: hysterectomy History of cholecystectomy Hx of cataract surgery Hx of tonsillectomy Family History Family History Father Family history of lung cancer Mother Family history of irritable bowel syndrome Other Cerebrovascular accident Diabetes mellitus Family history of arthritis Family history of cardiovascular disease Family history of congestive heart failure Family history of hearing loss Social History Social History Smoking status: Former smoker Alcohol intake: never Substance use: never Living arrangements: with family Gender identity (if verbalized by the patient): Female Spiritual care concerns: No Anes - Eval Final PreProcedure Day of Procedure 11/20/21 10:16 Patient weight: overweight Heart: regular rate and rhythm and murmur Lungs: clear to auscultation Airway: Mallampati scale class II Neurological: alert and oriented Last oral intake: >/= 8 hours ASA classification: IV Emergent: no Anesthetic plan: proceed Anesthesia type and monitoring: general GIVS and standard monitoring Results Review: All pre-operative results and documents have been reviewed as part of the pre-operative evaluation. Informed Consent: The patient's anesthetic plan and its attendant risks and benefits were discussed with the patient/family/POA. Questions were solicited and answers provided to the satisfaction of the patient/family/POA.
[2021-11-20] MEDS: LACTATED RINGERS 1,000 ML 150 ML IV CONT (10:18)
--- NOTE | 2021-11-20 10:18 | WPDANESEPPF ---
Anes - Initial Pre Proc Eval Procedure: Operation Date: 11/20/21 10:45 Proposed Procedures p Esophagogastroduodenoscopy - Jak Islas MD Date/Time: 11/20/21 10:18 Surgeon: Jak Islas MD Pre Op Diagnosis: nausea, vomiting Patient Data Age: 71 Gender: F Height: 1.6 m Weight: 79.6 kg Last Vital Signs Temp 36.2 C L 11/20/21 09:46 Pulse 86 11/20/21 09:46 Resp 18 11/20/21 09:46 BP 153/64 H 11/20/21 09:46 Pulse Ox 100 11/20/21 09:46 Allergies Allergy/AdvReac Type Severity Reaction Status Date / Time No Known Allergies Allergy Verified 11/20/21 09:54 Home Medications Medication Instructions Recorded Confirmed Type albuterol sulfate [ProAir HFA] 2 puff INHALATION QID PRN 09/01/20 11/20/21 History aspirin 81 mg PO DAILY 09/01/20 11/20/21 History hydrochlorothiazide 25 mg PO DAILY 09/01/20 11/20/21 History metformin 250 mg PO BID 09/01/20 11/20/21 History montelukast 10 mg PO DAILY 09/01/20 11/20/21 History piroxicam 20 mg PO DAILY PRN 09/01/20 11/20/21 History quetiapine 25 mg PO HS 09/01/20 11/20/21 History tolterodine [Detrol LA] 4 mg PO DAILY 09/01/20 11/20/21 History cholecalciferol (vitamin D3) 10 10 mcg PO DAILY 09/30/21 11/20/21 History mcg (400 unit) capsule liothyronine 5 mcg tablet 5 mcg PO DAILY 09/30/21 11/20/21 History melatonin 10 mg capsule 10 mg PO QHS 09/30/21 11/20/21 History vitamin B complex 1 tablet PO DAILY 09/30/21 11/20/21 History levothyroxine 88 mcg PO DAILY 11/10/21 11/20/21 History losartan 50 mg PO DAILY 11/10/21 11/20/21 History omeprazole 40 mg PO DAILY PRN 11/10/21 11/20/21 History ropinirole 0.25 mg PO DAILY 11/10/21 11/20/21 History Laboratory Tests 11/20/21 10:14 POC Capillary Glucose Pending Patient hx anesthesia problems: none Family hx anesthesia problems: none Results Review: All pre-operative results and documents have been reviewed as part of the pre-operative evaluation. [facility] Past Medical History Medical History Aortic stenosis Chronic low back pain COPD (chronic obstructive pulmonary disease) Depression Diastolic congestive heart failure Hyperlipidemia Hypertension Hypothyroidism Irritable bowel syndrome with both constipation and diarrhea Obstructive sleep apnea Pancreatic cyst Steatohepatitis Surgical History Surgical History H/O colonoscopy H/O: hysterectomy History of cholecystectomy Hx of cataract surgery Hx of tonsillectomy Family History Family History Father Family history of lung cancer Mother Family history of irritable bowel syndrome Other Cerebrovascular accident Diabetes mellitus Family history of arthritis Family history of cardiovascular disease Family history of congestive heart failure Family history of hearing loss Social History Social History Smoking status: Former smoker Alcohol intake: never Substance use: never Living arrangements: with family Gender identity (if verbalized by the patient): Female Spiritual care concerns: No Anes - Eval Final PreProcedure Day of Procedure 11/20/21 10:18 Patient weight: overweight Heart: regular rate and rhythm and murmur Lungs: clear to auscultation Airway: Mallampati scale class II Neurological: alert and oriented Last oral intake: >/= 8 hours ASA classification: IV Emergent: no Anesthetic plan: proceed Anesthesia type and monitoring: general GIVS and standard monitoring Other findings: propofol and etomidate mixture for induction Results Review: All pre-operative results and documents have been reviewed as part of the pre-operative evaluation. Informed Consent: The patient's anesthetic plan and its attendant risks and benefits were discussed with the patient/f
[2021-11-20 10:19] LABS: Glucose Point of Care 98 mg/dl (65-105)
--- NOTE | 2021-11-20 10:37 | PM.HPGS ---
History of Present Illness History of Present Illness Consent: Risks, benefits, and alternatives have been discussed and questions answered. Patient agrees to proceed with procedure. Chief complaint: nausea, vomiting Narrative: Katelin Edgar is a 71 year old female with nausea, vomiting and bloating, also IBS with alternating diarrhea and constipation but improved after using metamucil. Sometimes dysphagia after eating solids. Review of Systems Constitutional: Constitutional: Denies headache(s) and Denies weakness Eyes: Eyes: Denies blurry vision ENT: Reports Normal hearing present, Denies headache(s) and Denies neck pain Cardiovascular: Cardiovascular: Denies chest pain and Denies dyspnea Respiratory: Respiratory: Denies dyspnea Gastrointestinal: Gastrointestinal: Reports no additional gastrointestinal complaints Genitourinary: Genitourinary: Denies dysuria Musculoskeletal: Musculoskeletal: Denies neck pain Integumentary/Breasts: Skin/Breast: Denies dry skin Neurologic: Reports Normal hearing present, Denies headache(s) and Denies weakness Psychiatric: Psychiatric: Denies anxiety Endocrine: Endocrine: Denies change in body appearance Hematologic/Lymphatic: Hematologic/Lymphatic: Denies easy bleeding Allergic/Immunologic: Allergic/Immunologic: Denies urticaria PMFSH Past Medical History Medical History (Updated 11/20/21 @ 10:37 by Jak Islas MD) Aortic stenosis Bloating Chronic low back pain COPD (chronic obstructive pulmonary disease) Depression Diastolic congestive heart failure Hyperlipidemia Hypertension Hypothyroidism Irritable bowel syndrome with both constipation and diarrhea Obstructive sleep apnea Pancreatic cyst Steatohepatitis Surgical History Surgical History H/O colonoscopy H/O: hysterectomy History of cholecystectomy Hx of cataract surgery Hx of tonsillectomy Family History Family History Father Family history of lung cancer Mother Family history of irritable bowel syndrome Other Cerebrovascular accident Diabetes mellitus Family history of arthritis Family history of cardiovascular disease Family history of congestive heart failure Family history of hearing loss Social History Social History Smoking status: Former smoker Alcohol intake: never Substance use: never Living arrangements: with family Gender identity (if verbalized by the patient): Female Spiritual care concerns: No Meds Home Medications and Allergies Home Medications Medication Instructions Recorded Confirmed Type albuterol sulfate [ProAir HFA] 2 puff INHALATION QID PRN 09/01/20 11/20/21 History aspirin 81 mg PO DAILY 09/01/20 11/20/21 History hydrochlorothiazide 25 mg PO DAILY 09/01/20 11/20/21 History metformin 250 mg PO BID 09/01/20 11/20/21 History montelukast 10 mg PO DAILY 09/01/20 11/20/21 History piroxicam 20 mg PO DAILY PRN 09/01/20 11/20/21 History quetiapine 25 mg PO HS 09/01/20 11/20/21 History tolterodine [Detrol LA] 4 mg PO DAILY 09/01/20 11/20/21 History cholecalciferol (vitamin D3) 10 10 mcg PO DAILY 09/30/21 11/20/21 History mcg (400 unit) capsule liothyronine 5 mcg tablet 5 mcg PO DAILY 09/30/21 11/20/21 History melatonin 10 mg capsule 10 mg PO QHS 09/30/21 11/20/21 History vitamin B complex 1 tablet PO DAILY 09/30/21 11/20/21 History levothyroxine 88 mcg PO DAILY 11/10/21 11/20/21 History losartan 50 mg PO DAILY 11/10/21 11/20/21 History omeprazole 40 mg PO DAILY PRN 11/10/21 11/20/21 History ropinirole 0.25 mg PO DAILY 11/10/21 11/20/21 History Allergies Allergy/AdvReac Type Severity Reaction Status Date / Time No Known Allergies Allergy Verified 11/20/21 09:54 Vital Signs Vital Signs - 24 hr 11/20/21 09:46 Temperature 97.2 F L Pulse Rate 86 Respiratory
[2021-11-20 10:56] VITALS: BP 157/66; PULSE 92; RESP 27; O2SAT 27
[2021-11-20 11:05] VITALS: BP 157/66; PULSE 92; RESP 27; O2SAT 27
[2021-11-20 11:06] VITALS: BP 173/89; PULSE 89; RESP 22; O2SAT 19
[2021-11-20 11:16] VITALS: BP 160/84; PULSE 85; RESP 20; O2SAT 21
== END 2021-11-20 11:31 | disposition home or self-care (01) ==
PROVIDERS: PCP Family Medicine; Visit Provider Internal Medicine Gastroenterology
PROC: 0DJ08ZZ Inspection of Upper Intestinal Tract, Via Natural or Artificial Opening Endoscopic (ICD-10-PCS; CPT 43235; principal; 2021-11-20 10:45)
DX: K29.50 Unspecified chronic gastritis without bleeding (principal); R13.10 Dysphagia, unspecified; K58.2 Mixed irritable bowel syndrome; J44.9 Chronic obstructive pulmonary disease, unspecified; E78.5 Hyperlipidemia, unspecified; E03.9 Hypothyroidism, unspecified; I11.0 Hypertensive heart disease with heart failure; I50.30 Unspecified diastolic (congestive) heart failure; G47.33 Obstructive sleep apnea (adult) (pediatric); K75.81 Nonalcoholic steatohepatitis (NASH); I35.0 Nonrheumatic aortic (valve) stenosis; Z79.82 Long term (current) use of aspirin; Z79.84 Long term (current) use of oral hypoglycemic drugs; Z87.891 Personal history of nicotine dependence
CPT/HCPCS: 43239; 82948; 88305; J2704; J7120

== ENCOUNTER 2022-03-27 20:22 | Observation (INO) | payer MEDICARE, OTHER, SELFPAY ==
--- NOTE | ~2022-03-27 | XR_ITS ---
EXAMINATION: XR chest 1V portable Exam Date/Time: 03/27/2022 20:48 CDT HISTORY: weakness Comparison: 02/11/2017. RESULT: Lines, tubes, and devices: None. Lungs and pleura: Clear. Cardiomediastinal silhouette: Stable cardiomediastinal silhouette. Other: No acute osseous or upper abdominal finding. IMPRESSION: No acute cardiopulmonary process. Reviewed, dictated and finalized at location K.
--- NOTE | ~2022-03-27 | CT_ITS ---
EXAMINATION: CT abdomen pelvis wo con DATE: 03/27/2022 22:04 INDICATION: Fever and vomiting TECHNIQUE: Computed tomography (CT) of the abdomen and pelvis was performed without intravenous contr ast. The dose-length product (DLP) was 1068.43 mGy-cm. Automated exposure control and iterative recon struction technique were employed. COMPARISON: 04/18/2020 FINDINGS: Minimal dependent atelectasis is present in the lung bases. The heart size is normal. The g allbladder is surgically absent. There is a 5 mm cyst of the liver dome. The spleen and adrenal gland s are normal. Multiple cystic lesions of the pancreas are again noted and appear to be stable within the limitations of noncontrast examination. There are punctate nonobstructing stones of the right kid saige. The left kidney is unremarkable. There is calcified atherosclerosis of the aorta and many of the other arteries. No pathologically enlarged abdominal or pelvic lymph nodes are identified. There is a greater than normal number of fluid-filled, nondistended small bowel loops. A moderate volume of co lonic stool is present. There is moderate lumbar spondylosis. There is a moderate-sized umbilical her nick containing fat. IMPRESSION: 1. Greater than normal number of fluid-filled, nondistended small bowel loops, likely enteritis. 2. Moderate-sized fat-containing umbilical hernia. 3. Nonobstructing right nephrolithiasis. 4. Constipation. Reviewed, dictated and finalized at location A.
[2022-03-27 20:24] VITALS: BP 96/48; PULSE 114; RESP 16; TEMP 36.3; O2SAT 98
--- NOTE | 2022-03-27 20:34 | ECG_ITS ---
Measurements Intervals [place] Rate: 101 P: 52 TX: 190 QRS: -49 QRSD: 98 T: 77 QT: 314 QTc: 407 Interpretive Statements SINUS TACHYCARDIA POSSIBLE RIGHT ATRIAL ENLARGEMENT [0.25mV P WAVE] LEFT ATRIAL ENLARGEMENT [-0.15mV P WAVE IN V1/V2] INFERIOR MYOCARDIAL INFARCTION , OLD POSSIBLE OLD ANTEROSEPTAL HI NO PRIOR TRACING Electronically Signed On 03-28-2022 8:57:16 CDT by Christiane Fields M.D.
--- NOTE | 2022-03-27 20:58 | ED.WEAKNESS ---
HPI - Weakness General Chief complaint: Weakness <TERENCE Keith Last Filed: 03/28/22 03:09> Stated complaint: throwing up, fever <TERENCE Keith Last Filed: 03/28/22 03:09> Time Seen by Provider: 03/27/22 20:34 <TERENCE Keith Last Filed: 03/28/22 03:09> Source: patient and family <TERENCE Keith Last Filed: 03/28/22 03:09> Mode of arrival: wheelchair <TERENCE Keith Last Filed: 03/28/22 03:09> Limitations: no limitations <TERENCE Keith Last Filed: 03/28/22 03:09> History of Present Illness HPI Narrative: This is a 71-year-old female that presents to the emergency department for generalized weakness noted today. Reports several episodes of emesis. She has not been able to keep anything down today. Also reports diarrhea, fever, and cough. She is COVID and influenza vaccinated. Denies chest pain, shortness of breath, or abdominal pain. <TERENCE Keith Last Filed: 03/28/22 03:09> Related Data Home medications: Home Medications Medication Instructions Recorded Confirmed albuterol sulfate 90 mcg/actuation 2 puff inhalation QID PRN 09/01/20 03/28/22 aerosol inhaler (ProAir HFA) Shortness Of Breath aspirin 81 mg tablet 81 mg PO DAILY 09/01/20 03/28/22 hydrochlorothiazide 25 mg tablet 25 mg PO DAILY 09/01/20 03/28/22 metformin 500 mg tablet,extended 250 mg PO BID 09/01/20 03/28/22 release 24 hr montelukast 10 mg tablet 10 mg PO DAILY 09/01/20 03/28/22 piroxicam 20 mg capsule 20 mg PO DAILY PRN Pain 09/01/20 03/28/22 quetiapine 25 mg tablet 25 mg PO HS 09/01/20 03/28/22 tolterodine 4 mg capsule,extended 4 mg PO DAILY 09/01/20 03/28/22 release 24 hr (Detrol LA) cholecalciferol (vitamin D3) 10 10 mcg PO DAILY 09/30/21 03/28/22 mcg (400 unit) capsule liothyronine 5 mcg tablet 5 mcg PO DAILY 09/30/21 03/28/22 melatonin 10 mg capsule 10 mg PO QHS 09/30/21 03/28/22 vitamin B complex (B 1 tablet PO DAILY 09/30/21 03/28/22 Complex-Vitamin B12 tablet) levothyroxine 88 mcg tablet 88 mcg PO DAILY 11/10/21 03/28/22 losartan 50 mg tablet 50 mg PO DAILY 11/10/21 03/28/22 omeprazole 40 mg capsule,delayed 40 mg PO DAILY PRN Indigestion 11/10/21 03/28/22 release ropinirole 0.25 mg tablet 0.25 mg PO DAILY 11/10/21 03/28/22 rosuvastatin 20 mg tablet 20 mg PO DAILY 03/28/22 03/28/22 <Shanna Lucia PA-C - Last Filed: 03/28/22 03:09> Allergies/Adverse reactions: Allergies Allergy/AdvReac Type Severity Reaction Status Date / Time No Known Allergies Allergy Verified 03/27/22 20:24 <Shanna Lucia PA-C - Last Filed: 03/28/22 03:09> Review of Systems Review of Systems: CONSTITUTIONAL: Reports fever CARDIOVASCULAR: Denies chest pain, or edema. RESPIRATORY: Reports cough. Denies dyspnea. GASTROINTESTINAL: Reports nausea, vomiting and diarrhea. Denies abdominal pain GENITOURINARY: Denies dysuria <Shanna Lucia PA-C - Last Filed: 03/28/22 03:09> All systems reviewed & are unremarkable except as noted in HPI and below <Shanna Lucia PA-C - Last Filed: 03/28/22 03:09> [facility] Past Medical History Medical History: Medical History (Updated 03/28/22 @ 03:07 by Shanna Lucia PA-C) Aortic stenosis Bloating Chronic low back pain COPD (chronic obstructive pulmonary disease) Depression Diastolic congestive heart failure Hyperlipidemia Hypertension Hypothyroidism Irritable bowel syndrome with both constipation and diarrhea Obstructive sleep apnea Pancreatic cyst Steatohepatitis <Shanna Lucia PA-C - Last Filed: 03/28/22 03:09> Surgical History Surgical History: Surgical History H/O colonoscopy H/O: hysterectomy History of cholecystectomy Hx of cataract surgery Hx of tonsillectomy <Shanna Lucia PA-C - Last Filed: 03/28/22 03:09> Family History Family History: Family History (Reviewed 11/20/21 @ 10:18 by Pascual
[2022-03-27 21:14] LABS: Basophils Percent Auto 0.2 % (0.2-1.2); Eosinophils Absolute Auto 0.1 K/mm3 (0-0.3); Eosinophils Percent Auto 1.2 % (0-4.4); Hematocrit 42.3 % (37.0-47.0); Hemoglobin 13.4 g/dL (12.0-15.0); Immature Granulocyte Absolute 0.05 K/mm3 (0.00-0.031); Immature Granulocyte Percent A 0.4 % (0-0.5); Lymphocytes Absolute Auto 0.54 K/mm3 (0.9-3.2); Lymphocytes Percent Auto 4.8 % (18.3-44.2); Mean Corpuscular HGB Conc 31.7 g/dl (32-36); Mean Corpuscular Hemoglobin 25.6 pg (26-34); Mean Corpuscular Volume 80.9 fl (80-100); Mean Platelet Volume 9.2 fl (7.4-10.4); Monocytes Absolute Auto 0.9 K/mm3 (0.1-0.6); Monocytes Percent Auto 7.7 % (2.6-8.5); Neutrophils Absolute Auto 9.7 K/mm3 (1.3-6.7); Neutrophils Percent Auto 85.7 % (45.5-73.1); Platelet Count Result 207 k/mm3 (150-375); Red Blood Count 5.23 M/mm3 (4.2-5.4); Red Cell Distribution Width 13.4 % (11.5-14.5); White Blood Count 11.3 K/mm3 (4.5-10.0)
[2022-03-27 21:23] LABS: Alanine Aminotransferase 48 U/L (6-35); Albumin Level 4.1 g/dL (3.5-5.1); Alkaline Phosphatase 77 U/L (38-126); Anion Gap 7 mmol/L (8-16); Aspartate Amino Transferase 73 U/L (14-36); Blood Urea Nitrogen 32 mg/dL (7-17); Calcium 8.9 mg/dL (8.4-10.2); Carbon Dioxide 23 mmol/L (22-30); Chloride 101 mmol/L (98-107); Estimated CRCL calculation 32 ml/min; Estimated Glomerular Filt Rate 34; Glucose 133 mg/dL (65-110); Lactic Acid Reflex 1.8 mmol/L (0.7-2.0); Lipase 190 U/L (23-300); Sodium 131 mmol/L (137-145)
[2022-03-27 21:31] LABS: CRP 1.3 mg/dL (<1.0); Creatine Kinase 46 U/L (30-135)
[2022-03-27] MEDS: SODIUM CHLORIDE 0.9% IV 500 ML 999 ML IV CONT ×2 (21:44→22:26)
[2022-03-27] MEDS: PANTOPRAZOLE SODIUM IV 40 MG VIAL IV PUSH (21:44)
[2022-03-27 21:49] VITALS: BP 95/39; PULSE 102; RESP 20; TEMP 37.7; O2SAT 95
[2022-03-27 22:24] VITALS: TEMP 36.8
[2022-03-27 23:38] LABS: Influenza A QL RT-PCR Negative (Negative); Influenza B QL RT-PCR Negative (Negative); SARS-CoV-2 RNA PCR Negative
[2022-03-27] MEDS: SODIUM CHLORIDE 0.9% IV 1,000 ML 999 ML IV CONT (23:41)
[2022-03-28] VITALS (12 sets, daily range): BP systolic 103–153; BP diastolic 41–82; PULSE 74–100; RESP 18–20; TEMP 36.4–36.9; O2SAT 96–100; BMI 31.4; BMI 30.5
[2022-03-28 00:18] LABS: Appearance Urine Clear (Clear); Bilirubin Urine 3+ (Negative); Blood Urine Negative (Negative); Color Urine Yellow (Yellow); Glucose Urine UA Negative (Negative); Ketones Urine 1+ mg/dL (Negative); Leukocyte Esterase Ur Negative LEU/UL (Negative); Nitrate Urine Negative (Negative); Protein Urine Trace mg/dL (Negative); Urobilinogen Urine 0.2 mg/dL (<2.0)
[2022-03-28 00:30] LABS: Bacteria Urine Trace /hpf; Mucus Urine Rare /lpf; Squamous Epithelial Cell Urine Rare /hpf (Few); WBC Urine 0-3 /hpf
[2022-03-28 00:31] LABS: Add Urine Microscopic? YES
[2022-03-28] MEDS: SODIUM CHLORIDE 0.9% IV 1,000 ML 999 ML IV CONT (01:52)
--- NOTE | 2022-03-28 05:28 | ADMGEN ---
This patient, Katelin Edgar, was admitted to IMU Room 211-01 at 0430. Patient/family oriented to hospital policies and general routines including ID bracelet, bed and alarms, visiting hours, pain management, procedures, bathroom and other care routines, personal items, smoking policy, room service/diet, and visiting hours. Information on how to activate the Rapid Response Team has been discussed. Patient/Family are encouraged to report perceived risks to care and to ask questions if they do not understand what they are told or what they should do.
[2022-03-28 05:59] LABS: Glucose Point of Care 150 mg/dl (65-105)
[2022-03-28 08:42] LABS: Glucose Point of Care 118 mg/dl (65-105)
[2022-03-28] MEDS: hydroCHLOROthiazide 25 MG TABLET PO (11:08)
[2022-03-28] MEDS: CHOLECALCIFEROL 400 UNITS TABLET (VIT D) PO (11:08)
[2022-03-28] MEDS: ASPIRIN 81 MG CHEWABLE TABLET PO (11:08)
[2022-03-28] MEDS: TOLTERODINE TARTRATE LA 4 MG CAP.ER.24H PO (11:08)
[2022-03-28] MEDS: ROSUVASTATIN 10 MG TABLET 20 MG PO (11:09)
[2022-03-28] MEDS: VITAMIN B COMPLEX CAPSULE 1 CAP PO (11:09)
[2022-03-28] MEDS: LOSARTAN POTASSIUM 50 MG TABLET PO (11:09)
[2022-03-28] MEDS: LEVOTHYROXINE SODIUM 88 MCG TABLET PO (12:00)
[2022-03-28 12:09] LABS: Glucose Point of Care 108 mg/dl (65-105)
--- NOTE | 2022-03-28 12:19 | PM.IMHP ---
H&P: HPI History of Present Illness Date/Time: 03/28/22 12:19 Chief Complaint: This is a 71-year-old female that presents to the emergency department for generalized weakness noted today.? Reports several episodes of emesis.? She has not been able to keep anything down today.? Also reports diarrhea, fever, and cough.? She is COVID and influenza vaccinated.? Denies chest pain, shortness of breath, or abdominal pain. Review of Systems Review of Systems: 10 point ROS negative except as stated in HPI / Subjective PMFSH Past Medical History Medical History (Updated 03/28/22 @ 12:21 by Castro Centeno MD) Aortic stenosis Bloating Chronic low back pain COPD (chronic obstructive pulmonary disease) Depression Diastolic congestive heart failure Hyperlipidemia Hypertension Hypothyroidism Irritable bowel syndrome with both constipation and diarrhea Obstructive sleep apnea Pancreatic cyst Steatohepatitis Surgical History Surgical History H/O colonoscopy H/O: hysterectomy History of cholecystectomy Hx of cataract surgery Hx of tonsillectomy Family History Family History Father Family history of lung cancer Mother Family history of irritable bowel syndrome Other Cerebrovascular accident Diabetes mellitus Family history of arthritis Family history of cardiovascular disease Family history of congestive heart failure Family history of hearing loss Social History Social History Smoking status: Never smoker Alcohol intake: never Substance use: never Substance use type: does not use Gender identity (if verbalized by the patient): Female Spiritual care concerns: No Meds Home Medications and Allergies Home Medications Medication Instructions Recorded Confirmed Type albuterol sulfate 90 mcg/actuation 2 puff inhalation QID PRN 09/01/20 03/28/22 History aerosol inhaler (ProAir HFA) Shortness Of Breath aspirin 81 mg tablet 81 mg PO DAILY 09/01/20 03/28/22 History hydrochlorothiazide 25 mg tablet 25 mg PO DAILY 09/01/20 03/28/22 History metformin 500 mg tablet,extended 250 mg PO BID 09/01/20 03/28/22 History release 24 hr montelukast 10 mg tablet 10 mg PO DAILY 09/01/20 03/28/22 History piroxicam 20 mg capsule 20 mg PO DAILY PRN Pain 09/01/20 03/28/22 History tolterodine 4 mg capsule,extended 4 mg PO DAILY 09/01/20 03/28/22 History release 24 hr (Detrol LA) cholecalciferol (vitamin D3) 10 10 mcg PO DAILY 09/30/21 03/28/22 History mcg (400 unit) capsule liothyronine 5 mcg tablet 5 mcg PO BID 09/30/21 03/28/22 History melatonin 10 mg capsule 10 mg PO QHS 09/30/21 03/28/22 History vitamin B complex (B 1 tablet PO DAILY 09/30/21 03/28/22 History Complex-Vitamin B12 tablet) levothyroxine 88 mcg tablet 88 mcg PO DAILY 11/10/21 03/28/22 History losartan 50 mg tablet 50 mg PO DAILY 11/10/21 03/28/22 History omeprazole 40 mg capsule,delayed 40 mg PO DAILY PRN Indigestion 11/10/21 03/28/22 History release quetiapine 100 mg tablet 100 tablet PO HS 03/28/22 03/28/22 History ropinirole 0.5 mg tablet 0.5 tablet PO HS 03/28/22 03/28/22 History rosuvastatin 20 mg tablet 20 mg PO DAILY 03/28/22 03/28/22 History Allergies Allergy/AdvReac Type Severity Reaction Status Date / Time No Known Allergies Allergy Verified 03/27/22 20:24 Vital Signs Vital Signs - 24 hr 03/27/22 20:24 03/27/22 21:49 03/27/22 22:24 Temperature 97.4 F L 99.8 F H 98.3 F Pulse Rate 114 H 102 H Respiratory Rate 16 20 Blood Pressure 96/48 L 95/39 L Pulse Oximetry 98 95 Oxygen Delivery Room Air Room Air 03/28/22 04:10 03/28/22 04:44 03/28/22 05:34 Temperature 98.0 F 97.8 F Pulse Rate 86 91 81 Respiratory Rate 20 18 Blood Pressure 103/48 L 114/41 L Pulse Oximetry 96 98 Oxygen Delivery 03/28/22 05:38 03/28/22 05:38 06
[2022-03-28] MEDS: LIOTHYRONINE SODIUM 5 MCG TABLET PO (16:22)
[2022-03-28 16:34] LABS: Glucose Point of Care 114 mg/dl (65-105)
[2022-03-28 20:28] LABS: Glucose Point of Care 110 mg/dl (65-105)
[2022-03-28] MEDS: MONTELUKAST SODIUM 10 MG TABLET PO (22:35)
[2022-03-28] MEDS: MELATONIN 5 MG TABLET 10 MG PO (22:35)
[2022-03-28] MEDS: QUEtiapine FUMARATE 100 MG TABLET PO (22:36)
[2022-03-28] MEDS: rOPINIRole HCL 0.5 MG TABLET PO (22:36)
[2022-03-29] VITALS (8 sets, daily range): BP systolic 122–150; BP diastolic 55–60; PULSE 75–115; RESP 19–20; TEMP 36.5–36.6; O2SAT 97–99
[2022-03-29 08:23] LABS: Glucose Point of Care 119 mg/dl (65-105)
[2022-03-29] MEDS: LIOTHYRONINE SODIUM 5 MCG TABLET PO (09:50)
[2022-03-29] MEDS: TOLTERODINE TARTRATE LA 4 MG CAP.ER.24H PO (09:50)
[2022-03-29] MEDS: LOSARTAN POTASSIUM 50 MG TABLET PO (09:50)
[2022-03-29] MEDS: hydroCHLOROthiazide 25 MG TABLET PO (09:50)
[2022-03-29] MEDS: PANTOPRAZOLE 40 MG TABLET PO (09:50)
[2022-03-29] MEDS: ROSUVASTATIN 10 MG TABLET 20 MG PO (09:50)
[2022-03-29] MEDS: CHOLECALCIFEROL 400 UNITS TABLET (VIT D) PO (09:51)
[2022-03-29] MEDS: PIROXICAM 10 MG CAPSULE 20 MG PO (09:51)
[2022-03-29] MEDS: VITAMIN B COMPLEX CAPSULE 1 CAP PO (09:51)
[2022-03-29] MEDS: LEVOTHYROXINE SODIUM 88 MCG TABLET PO (09:52)
[2022-03-29 10:01] LABS: Anion Gap 6 mmol/L (8-16); Blood Urea Nitrogen 17 mg/dL (7-17); Calcium 8.5 mg/dL (8.4-10.2); Carbon Dioxide 24 mmol/L (22-30); Chloride 108 mmol/L (98-107); Estimated CRCL calculation 46 ml/min; Estimated Glomerular Filt Rate 49; Glucose 131 mg/dL (65-110); Potassium 3.9 mmol/L (3.4-5.0); Sodium 138 mmol/L (137-145)
--- NOTE | 2022-03-29 11:40 | PM.DS ---
DS: Admitting Diagnosis Discharge Date March 29, 2022 Admitting Diagnosis Nausea and vomiting DS: Discharge Diagnosis Discharge Diagnosis (1) Ileus: Code(s): K56.7 - Ileus, unspecified Status: Acute Assessment and Plan: Most likely the cause of her issues is ileus possibly related enteritis. Final think she needs any antibiotics on discharge. nonetheless symptoms have improved significantly she is tolerating a normal diet. Some of her symptoms might be related to her history of irritable bowel. (2) Irritable bowel syndrome with both constipation and diarrhea: Code(s): K58.2 - Mixed irritable bowel syndrome Status: Acute Assessment and Plan: See plan above (3) Hypertension: Qualifiers: Hypertension type: unspecified Qualified Code(s): I10 - Essential (primary) hypertension Code(s): I10 - Essential (primary) hypertension Status: Chronic Assessment and Plan: Continue home meds and monitor (4) Hyperlipidemia: Qualifiers: Hyperlipidemia type: unspecified Qualified Code(s): E78.5 - Hyperlipidemia, unspecified Code(s): E78.5 - Hyperlipidemia, unspecified Status: Chronic Assessment and Plan: Continue home meds (5) Hypothyroidism: Qualifiers: Hypothyroidism type: unspecified Qualified Code(s): E03.9 - Hypothyroidism, unspecified Code(s): E03.9 - Hypothyroidism, unspecified Status: Chronic Assessment and Plan: Continue home meds (6) Diarrhea: Qualifiers: Diarrhea type: unspecified type Qualified Code(s): R19.7 - Diarrhea, unspecified Code(s): R19.7 - Diarrhea, unspecified Status: Acute Assessment and Plan: Improved (7) GERD (gastroesophageal reflux disease): Code(s): K21.9 - Gastro-esophageal reflux disease without esophagitis Status: Acute Assessment and Plan: Continue home meds (8) Acute kidney injury: Code(s): N17.9 - Acute kidney failure, unspecified Status: Acute Assessment and Plan: Present on admission. Creatinine are normal. X-ray dehydration DS: Summary Hospital Course Hospital Course: Admitted for nausea vomiting diarrhea and dehydration. Patient is given IV fluids improved symptoms related to enteritis, self-resolved. Time Spent with Patient Time attestation: Total time spent providing and/or coordinating discharge services: Exam Narrative: General: alert and oriented Psych: appropriate mood nad affect Eyes: PERRLA Neck: Trachea midline, no new lesions Skin: no changes Lungs: CTA Cardiac: Normal S1,S2, no MGR ABD: soft, nd, nt, nbs Ext: no new lesions, no cce Vasc: Pulses intact DS: Data Data Completed and Pending Labs on day of discharge: Labs from last 24 hours 03/29/22 03/29/22 03/28/22 09:31 07:54 19:55 Sodium 138 Potassium 3.9 Chloride 108 H Carbon Dioxide 24 Anion Gap 6 L BUN 17 D Creatinine 1.10 H Estim Creat Clear Calc 46 Estimated GFR 49 L Glucose 131 H POC Capillary Glucose 119 H 110 H Calcium 8.5 03/28/22 03/28/22 16:32 11:45 Sodium Potassium Chloride Carbon Dioxide Anion Gap BUN Creatinine Estim Creat Clear Calc Estimated GFR Glucose POC Capillary Glucose 114 H 108 H Calcium Preliminary micro results at discharge 03/27/22 21:07 Blood Culture - Preliminary Blood 03/27/22 21:40 Blood Culture - Preliminary Blood Discharge Plan Discharge Attending physician on discharge: Castro Centeno Discharging Clinician: Castro Centeno Patient Disposition: Home, Self-Care Activity: no preference Diet: as tolerated Patient Instructions: Antibiotic Form, Heart Failure (DC), Sepsis (DC), Chronic Hypertension (DC) Stand Alone Forms: General Discharge Information Follow-up/Referrals: Amie,Amisha Urias MD [Primary Care Provider] - Discharge Medic
[2022-03-29 12:19] LABS: Glucose Point of Care 135 mg/dl (65-105)
[2022-03-29] MEDS: ASPIRIN 81 MG CHEWABLE TABLET PO (12:23)
== END 2022-03-29 15:01 | disposition home or self-care (01) ==
LOC: ANHED 03-28 03:09 → ANHIMU 03-28 04:15
PROVIDERS: Physician Assistant; Admitting Provider Internal Medicine; Emergency Provider General Practice; PCP Family Medicine; Visit Provider Chiropractor
DX: K56.7 Ileus, unspecified (principal); A41.9 Sepsis, unspecified organism; K58.2 Mixed irritable bowel syndrome; R53.1 Weakness; R50.9 Fever, unspecified; E86.0 Dehydration; N17.9 Acute kidney failure, unspecified; I11.0 Hypertensive heart disease with heart failure; E78.5 Hyperlipidemia, unspecified; Z79.82 Long term (current) use of aspirin; E03.9 Hypothyroidism, unspecified; J44.9 Chronic obstructive pulmonary disease, unspecified; I50.30 Unspecified diastolic (congestive) heart failure; G47.33 Obstructive sleep apnea (adult) (pediatric); Z20.822 Contact with and (suspected) exposure to COVID-19
CPT/HCPCS: 36415; 51701; 71045; 74176; 80048; 80053; 81001; 82550; 82948; 83605; 83690; 85025; 86140; 87040; 87502; 93005; 96361; 96365; 96367; 96375; 97161; 97165; 99285; A9270; C9113; C9803; G0378; J0131; J1741; J2543; J7030; J7040; U0003; U0005

== ENCOUNTER → 2022-05-12 10:53 | Outpatient (CLI) | payer MEDICARE, OTHER, SELFPAY ==
--- NOTE | ~2022-05-12 | MR_ITS ---
EXAMINATION: MR brain/brain stem wo/w con DATE: 05/12/2022 11:50 INDICATION: Other developmental disorders of speech and language. Slurred speech. TECHNIQUE: Magnetic resonance imaging (MRI) of the brain and brainstem was performed without and with 15 mL MultiHance intravenous contrast. COMPARISON: None. FINDINGS: There are scattered areas of nonspecific increased T2-weighted signal intensity in the cere bral white matter, which is within normal limits for the patient's age. There is a small old infarct in right cerebellum. There is no intracranial hemorrhage, acute infarction, or abnormal intracranial mass lesion. The ventricles are normal in size. The paranasal sinuses are clear. There are likely zoila nges of ocular lens replacement surgeries. The mastoid air cells are normal. IMPRESSION: 1. Small old infarct in right cerebellum. Reviewed, dictated and finalized at location A.
[2022-05-12 11:27] LABS: Estimated Glomerular Filt Rate 44
== END ==
PROVIDERS: PCP Family Medicine; Visit Provider Family Medicine
DX: F80.89 Other developmental disorders of speech and language (principal); R93.0 Abnormal findings on diagnostic imaging of skull and head, not elsewhere classified
CPT/HCPCS: 70553; A9577

== ENCOUNTER 2022-06-01 12:45 | Outpatient (CLI) | payer MEDICARE, OTHER, SELFPAY ==
--- NOTE | ~2022-06-01 | US_ITS ---
EXAMINATION: US carotid duplex BI DATE: 06/01/2022 13:18 INDICATION: Dizziness and giddiness TECHNIQUE: Grayscale, color Doppler, and pulsed Doppler images of the cervical carotid arteries were obtained. The degree of vessel stenosis is placed in one of the following categories: normal, <50%, 5 0-69%, >=70% but less than near-occlusion, near-occlusion, or total occlusion. Note that percent sten osis relative to normal distal artery lumen diameter is indirectly measured from velocity measurement s as described by Guillaume, et al. Radiology 2003; 229:340-346. Notes: Normal: Peak systolic velocity <125 centimeters/sec and no plaque <50%. Peak systolic velocity <125 ( EDV <40; ICA/CCA PSV ratio <2.0; used these factors only a tandem lesions or low cardiac output or co ntralateral disease) 50-69 %: PSV 125-230 (EDV 40-100; ratio 2-4) >= 70% but less than near occlusion: PSV greater than 230 (EDV > 100; ratio> 4.0) Near Occlusion: PSV that is variable; markedly narrowed lumen Occlusion: Absent flow on color/spectral Doppler and no lumen on romo scale. COMPARISON: None. FINDINGS: RIGHT: The right common carotid artery (CCA) peak systolic velocity (PSV) is 59 cm/s. The right internal car otid artery (ICA) PSV is 104 cm/s. The right ICA end-diastolic velocity (EDV) is 27 cm/s. The right I CA/CCA PSV ratio is 1.8. The external carotid artery (ECA) PSV is 61 cm/s. There is antegrade flow in the right vertebral artery. LEFT: The left CCA PSV is 94 cm/s. The left ICA PSV is 98 cm/s. The left ICA EDV is 25 cm/s. The left ICA/C CA PSV ratio is 1.0. The ECA PSV is 60 cm/s. There is antegrade flow in the left vertebral artery. IMPRESSION: 1. Less than 50% stenosis in the right internal carotid artery by sonographic criteria. 2. Less than 50% stenosis in the left internal carotid artery by sonographic criteria. Reviewed, dictated and finalized at location A. IMPRESSION: 1. Less than 50% stenosis in the right internal carotid artery by sonographic c charles. 2. Less than 50% stenosis in the left internal carotid artery by sonographic tam jacobson.
== END 2022-06-01 12:46 | disposition home or self-care (01) ==
LOC: ANHIMG 12:48
PROVIDERS: PCP Family Medicine; Visit Provider Family Medicine
DX: F80.89 Other developmental disorders of speech and language (principal); R41.0 Disorientation, unspecified; R42 Dizziness and giddiness; I65.23 Occlusion and stenosis of bilateral carotid arteries
CPT/HCPCS: 93880

== ENCOUNTER → 2022-08-10 13:49 | Outpatient (CLI) | payer MEDICARE, OTHER, SELFPAY ==
--- NOTE | ~2022-08-10 | MM_ITS ---
EXAMINATION: MM screening arash BI w ginger HISTORY: Screening TECHNIQUE: Craniocaudal and mediolateral oblique 3-D tomosynthesis images were obtained and synthetic 2-D images were generated. CAD analysis was submitted and interpreted. COMPARISON: Comparison to multiple prior studies sequentially, with oldest reviewed study dated 02/2017. BREAST PARENCHYMAL COMPOSITION: The breasts are heterogeneously dense, which may obscure small masses . FINDINGS: There is no evidence of suspicious mass, calcification, or architectural distortion to sugg est malignancy in either breast. There has been no suspicious interval change. IMPRESSION: 1. No mammographic evidence of malignancy. 2. Recommend routine screening mammography in one year. BI-RADS Category 1: Negative Reviewed, dictated and finalized at location A.
== END ==
PROVIDERS: PCP Family Medicine; Visit Provider Family Medicine
DX: Z12.31 Encounter for screening mammogram for malignant neoplasm of breast (principal)
CPT/HCPCS: 77063; 77067

== ENCOUNTER 2022-10-23 14:48 | Emergency (ER) | payer MEDICARE, OTHER, SELFPAY ==
[2022-10-23] VITALS (8 sets, daily range): BP systolic 102–128; BP diastolic 50–67; PULSE 72–93; RESP 13–29; TEMP 36.8–36.9; O2SAT 97–100
--- NOTE | ~2022-10-23 | XR_ITS ---
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 RESULT: Lines, tubes, and devices: None. Lungs and pleura: Coarse interstitial and reticulonodular opacities in the right lower lung. Linear scar/atelectasis in the left lung base. Senescent change. Cardiomediastinal silhouette: Stable. Other: No acute osseous or upper abdominal finding. IMPRESSION: Pulmonary opacities may represent focal bronchiolitis, as can be seen with atypical infection or aspi ration. Reviewed, dictated and finalized at location K. OL [employer]CH LANGUAGE PATHOLOGIST IMPRESSION: Pulmonary opacities may represent focal bronchiolitis, as can be seen with atyp ical infection or aspiration.
[2022-10-23] MEDS: ALBUTEROL SULFATE NEB 2.5 MG/3 ML INH 5 MG INHALATION (16:43)
[2022-10-23] MEDS: IPRATROPIUM BR 0.02% INH SOLN 0.5 MG/2.5 ML VIAL INHALATION (16:44)
[2022-10-23 16:57] LABS: Basophils Percent Auto 0.4 % (0.2-1.2); Eosinophils Absolute Auto 0.1 K/mm3 (0-0.3); Eosinophils Percent Auto 1.4 % (0-4.4); Hematocrit 34.1 % (37.0-47.0); Hemoglobin 10.8 g/dL (12.0-15.0); Immature Granulocyte Absolute 0.05 K/mm3 (0.00-0.031); Immature Granulocyte Percent A 0.7 % (0-0.5); Lymphocytes Percent Auto 11.7 % (18.3-44.2); Mean Corpuscular HGB Conc 31.7 g/dl (32-36); Mean Corpuscular Hemoglobin 25.7 pg (26-34); Mean Corpuscular Volume 81.2 fl (80-100); Mean Platelet Volume 9.5 fl (7.4-10.4); Monocytes Absolute Auto 1.4 K/mm3 (0.1-0.6); Monocytes Percent Auto 18.1 % (2.6-8.5); Neutrophils Absolute Auto 5.2 K/mm3 (1.3-6.7); Neutrophils Percent Auto 67.7 % (45.5-73.1); Platelet Count Result 223 k/mm3 (150-375); Red Cell Distribution Width 13.9 % (11.5-14.5); White Blood Count 7.7 K/mm3 (4.5-10.0)
[2022-10-23 17:11] LABS: Albumin Level 3.9 g/dL (3.5-5.1); Alkaline Phosphatase 103 U/L (38-126); Anion Gap 10 mmol/L (8-16); Aspartate Amino Transferase 39 U/L (14-36); Bilirubin,Total 0.6 mg/dL (0.2-1.3); Blood Urea Nitrogen 37 mg/dL (7-17); Calcium 8.9 mg/dL (8.4-10.2); Carbon Dioxide 18 mmol/L (22-30); Chloride 110 mmol/L (98-107); Estimated CRCL calculation 26 ml/min; Estimated Glomerular Filt Rate 26; Glucose 122 mg/dL (65-110); Lipase 79 U/L (23-300); Potassium 4.3 mmol/L (3.4-5.0); Sodium 138 mmol/L (137-145)
[2022-10-23 17:32] LABS: Alanine Aminotransferase 27 U/L (6-35)
[2022-10-23] MEDS: SODIUM CHLORIDE 0.9% IV 1,000 ML 999 ML IV CONT (18:14)
--- NOTE | 2022-10-23 19:56 | ED.NAVMDI ---
HPI - Nausea/Vomiting/Diarrhea General Chief complaint: Nausea/Vomiting/Diarrhea Stated complaint: Cough x2 weeks Time Seen by Provider: 10/23/22 16:20 History of Present Illness HPI Narrative: Patient is a 71-year-old female who presents ER with diarrhea. Reports that she had sudden onset of her diarrhea yesterday and it was persistent where she cannot cannot have any bowel movement she had. It has since slowed down today. Patient reports that she is also had cough for 2 weeks. Her PCP placed her on doxycycline. She is only been on it for few days. She has not had a chest x-ray. She has not been tested for COVID. She reports mild fatigue and body aches Related Data Home Medications Medication Instructions Recorded Confirmed albuterol sulfate 90 mcg/actuation 2 puff inhalation QID PRN 09/01/20 03/28/22 aerosol inhaler (ProAir HFA) Shortness Of Breath aspirin 81 mg tablet 81 mg PO DAILY 09/01/20 03/28/22 hydrochlorothiazide 25 mg tablet 25 mg PO DAILY 09/01/20 03/28/22 metformin 500 mg tablet,extended 250 mg PO BID 09/01/20 03/28/22 release 24 hr montelukast 10 mg tablet 10 mg PO DAILY 09/01/20 03/28/22 piroxicam 20 mg capsule 20 mg PO DAILY PRN Pain 09/01/20 03/28/22 tolterodine 4 mg capsule,extended 4 mg PO DAILY 09/01/20 03/28/22 release 24 hr (Detrol LA) cholecalciferol (vitamin D3) 10 10 mcg PO DAILY 09/30/21 03/28/22 mcg (400 unit) capsule liothyronine 5 mcg tablet 5 mcg PO BID 09/30/21 03/28/22 melatonin 10 mg capsule 10 mg PO QHS 09/30/21 03/28/22 vitamin B complex (B 1 tablet PO DAILY 09/30/21 03/28/22 Complex-Vitamin B12 tablet) levothyroxine 88 mcg tablet 88 mcg PO DAILY 11/10/21 03/28/22 losartan 50 mg tablet 50 mg PO DAILY 11/10/21 03/28/22 omeprazole 40 mg capsule,delayed 40 mg PO DAILY PRN Indigestion 11/10/21 03/28/22 release quetiapine 100 mg tablet 100 tablet PO HS 03/28/22 03/28/22 ropinirole 0.5 mg tablet 0.5 tablet PO HS 03/28/22 03/28/22 rosuvastatin 20 mg tablet 20 mg PO DAILY 03/28/22 03/28/22 Allergies Allergy/AdvReac Type Severity Reaction Status Date / Time No Known Allergies Allergy Verified 10/23/22 15:08 Review of Systems Review of Systems: All systems reviewed & are unremarkable except as noted in HPI and below Constitutional: Constitutional: Denies chills, Reports fatigue and Denies fever(s) ENT: Denies nasal congestion and Denies sore throat Cardiovascular: Cardiovascular: Denies chest pain, Denies rapid heart rate and Denies radiating jaw, neck or arm pain Respiratory: Respiratory: Reports cough, Denies dyspnea and Denies wheezing Gastrointestinal: Gastrointestinal: Denies abdominal pain, Reports diarrhea, Denies nausea and Denies vomiting Genitourinary: Genitourinary: Denies dysuria and Denies flank pain PMFSH Past Medical History Medical History (Updated 10/23/22 @ 20:31 by Jensen Cortez MD) Aortic stenosis Bloating Chronic low back pain COPD (chronic obstructive pulmonary disease) Depression Diastolic congestive heart failure Hyperlipidemia Hypertension Hypothyroidism Irritable bowel syndrome with both constipation and diarrhea Obstructive sleep apnea Pancreatic cyst Steatohepatitis Surgical History Surgical History H/O colonoscopy H/O: hysterectomy History of cholecystectomy Hx of cataract surgery Hx of tonsillectomy Family History Family History Father Family history of lung cancer Mother Family history of irritable bowel syndrome Other Cerebrovascular accident Diabetes mellitus Family history of arthritis Family history of cardiovascular disease Family history of congestive heart failure Family history of hearing loss Social History Social History Smoking status: Never smoker Alcohol intake: never Substance use: never Substance use type: chicas
[2022-10-23 21:13] LABS: Influenza A QL RT-PCR Negative (Negative); Influenza B QL RT-PCR Negative (Negative); SARS-CoV-2 RNA PCR Negative
== END 2022-10-23 21:30 | disposition home or self-care (01) ==
PROVIDERS: Emergency Provider Emergency Medicine; PCP Family Medicine
DX: E86.0 Dehydration (principal); Z20.822 Contact with and (suspected) exposure to COVID-19; J44.9 Chronic obstructive pulmonary disease, unspecified; F32.9 Major depressive disorder, single episode, unspecified; I11.0 Hypertensive heart disease with heart failure; I50.9 Heart failure, unspecified; E03.9 Hypothyroidism, unspecified; G47.30 Sleep apnea, unspecified
CPT/HCPCS: 36415; 71046; 80053; 83690; 85025; 87636; 94640; 96360; 96361; 99284; J7030

== ENCOUNTER → 2023-01-21 12:50 | Outpatient (CLI) | payer MEDICARE, OTHER, SELFPAY ==
--- NOTE | ~2023-01-21 | XR_ITS ---
XR lumbar spine min 4V DATE: 01/21/2023 13:29 INDICATION: Back pain TECHNIQUE: AP and lateral and coned lateral lumbosacral standing views. Flexion and extension standin g lateral views COMPARISON: 03/2022 CT abdomen pelvis 12/20/2017 MRI lumbar spine FINDINGS: There is diffuse osteopenia. There is minimal thoracolumbar dextroscoliosis. Included lower thoracic and lumbar pedicles appear intact. No fracture or bone destruction of the lum bar spine is detected. There is approximately 9 mm anterolisthesis at L4-5 in flexion, 8.4 mm anterolisthesis at L4-5 in ext ension. There is prominent degenerative change at the apophyseal joints of the lumbar and lumbosacral spine. There is multilevel degenerative disc disease, mild at L1-2, mild to moderate at L2-3, L3-4, moderate ly severe at L4-5, moderate at L5-S1. The sacroiliac joints are intact. There is abdominal aortic calcification, without evidence of aneurysm. Status post cholecystectomy. IMPRESSION: Borderline grade 1/grade 2 anterolisthesis at L4-5 Multilevel degenerative disease Osteopenia Reviewed, dictated and finalized at location B.
== END ==
PROVIDERS: PCP Family Medicine; Visit Provider Neurological Surgery
DX: M51.36 Other intervertebral disc degeneration, lumbar region (principal); M85.88 Other specified disorders of bone density and structure, other site
CPT/HCPCS: 72110

== ENCOUNTER → 2023-03-18 11:32 | Outpatient (CLI) | payer MEDICARE, OTHER, SELFPAY ==
--- NOTE | ~2023-03-18 | XR_ITS ---
Lumbosacral Spine: AP and lateral views Clinical History: Pain COMPARISON: 01/21/2023 Findings: The normal lordotic curve is maintained. No fracture seen. 1 cm anterolisthesis of L4 over L5 present. There is moderate to advanced facet arthropathy from L3 through S1. There are mild degene rative disc changes throughout the lumbar spine. The sacroiliac joints are normally outlined. Impression: 1 cm anterolisthesis of L4 over L5. Moderate degenerative spondylitic changes, as above. Reviewed, dictated and finalized at location M. Impression: 1 cm anterolisthesis of L4 over L5. Moderate degenerative spondylitic changes, as above.
== END ==
PROVIDERS: PCP Family Medicine; Visit Provider Neurological Surgery
DX: M47.896 Other spondylosis, lumbar region (principal)
CPT/HCPCS: 72110

== ENCOUNTER 2023-04-18 12:57 | Outpatient (CLI) | payer MEDICARE, OTHER, SELFPAY ==
--- NOTE | ~2023-04-18 | XR_ITS ---
EXAMINATION: XR lg joint inject/asp w image DATE: 04/18/2023 14:16 INDICATION: Moderate-sized left glenohumeral osteoarthritis. TECHNIQUE: A time-out was performed to verify the patient's name, date of , and procedure to b e performed. The procedure including the risks, benefits, and alternatives was discussed with the pat ient. Risks discussed included bleeding and infection. The patient understood the risks and agreed to proceed. The skin overlying the rotator cuff interval of the left glenohumeral joint was prepped an d draped in usual sterile fashion. Anesthetic was administered with 1% lidocaine subcutaneously. A 22 G needle was advanced under fluoroscopic guidance into the joint. Injection of 1 mL of Omnipaque 240 confirmed intra-articular position of the needle. Subsequently, injectate consisting of 5 mm of a 4:1 mixture of 1% lidocaine: 80 mg/mL Depo-Medrol for a total dosage of 80 mg Depo-Medrol was insti lled. Washout of contrast was seen confirming intra-articular administration. The needle was removed and the entry site was cleaned and dressed. There were no immediate complications. Fluoroscopy expos ure time was 0.1 minutes. The total number of images was 2. FINDINGS: Real-time fluoroscopy demonstrates the needle in the left glenohumeral joint. Patient's jauqeline n prior to procedure:4/10. Patient's pain following the procedure: 0/10. IMPRESSION: 1. Successful left glenohumeral joint injection of local anesthetic and steroid with decrease in the patient's presenting pain. Reviewed, dictated and finalized at location A.
== END 2023-04-18 12:58 | disposition home or self-care (01) ==
PROVIDERS: PCP Family Medicine; Visit Provider Orthopaedic Surgery
DX: M19.012 Primary osteoarthritis, left shoulder (principal)
CPT/HCPCS: 20610; 77002; J1040; Q9966

== ENCOUNTER → 2023-05-30 13:43 | Outpatient (CLI) | payer MEDICARE, OTHER, SELFPAY ==
--- NOTE | ~2023-05-30 | MR_ITS ---
EXAMINATION: MR lumbar spine wo/w con DATE: 05/30/2023 14:26 INDICATION: Lumbar spondylolisthesis TECHNIQUE: Magnetic resonance imaging (MRI) of the lumbar spine was performed without and with 18 mL Multihance intravenous contrast. Sequences included sagittal T2-weighted FSE, sagittal T2-weighted FS FSE, and sagittal and axial T1-weighted FSE. Postcontrast sequences included axial T2-weighted FSE, sagittal T1-weighted FSE, and axial and sagittal T1-weighted FS FSE. COMPARISON: Lumbar spine MR dated 12/20/2017 and lumbar spine radiographs dated 03/18/2023 FINDINGS: 2 mm retrolisthesis L2 on L3 and 4 mm anterolisthesis L4 on L5. Vertebral body heights are normal. N ormal marrow signal. Disc desiccation and mild disc height loss at T10-T11, L2-L3 and L5-S1 and moder ate disc height loss at L3-L4 and L4-L5. Annular fissures at L3-L4 and L5-S1. The conus medullaris te rminates at L1. There is normal signal in the caudal spinal cord. No abnormally enhancing lesions annette ntified. Paravertebral soft tissues are unremarkable. The following disc levels are specifically disc ussed: T12-L1: Disc is minimally bulging. There is mild bilateral facet joint osteoarthritis. There is no ne ural foraminal stenosis. There is no central canal stenosis. L1-L2: Disc is mildly bulging. There is mild bilateral facet joint osteoarthritis. There is mild bila teral neural foraminal stenosis. There is mild central canal stenosis. L2-L3: Disc is bulging. There is mild left and mild to moderate right facet joint osteoarthritis. The re is moderate bilateral neural foraminal stenosis. There is mild to moderate central canal stenosis. L3-L4: Disc is bulging with annular fissure. There is moderate left and severe right facet joint oste oarthritis. There is moderate bilateral neural foraminal stenosis. There is moderate to severe centra l canal stenosis. L4-L5: Disc is bulging with annular fissure. There is severe bilateral facet joint osteoarthritis. Th ere is moderate right and mild to moderate left neural foraminal stenosis. There is moderate to sever e central canal stenosis with significant narrowing of the lateral recesses, right greater than left. L5-S1: Disc is bulging with annular fissure. There is severe bilateral facet joint osteoarthritis. Th ere is mild left and moderate right neural foraminal stenosis. There is mild central canal stenosis. IMPRESSION: 1. Mild progression of moderate lumbar spondylosis. Reviewed, dictated and finalized at location B.
== END ==
PROVIDERS: PCP Neurological Surgery; Visit Provider Neurological Surgery
DX: M43.16 Spondylolisthesis, lumbar region (principal); M47.896 Other spondylosis, lumbar region
CPT/HCPCS: 72158; A9577

== ENCOUNTER → 2023-06-21 14:03 | Outpatient (CLI) | payer MEDICARE, OTHER, SELFPAY ==
--- NOTE | ~2023-06-21 | DEXA_ITS ---
Bone Density Report Name: SAL VARGAS Age: 72 Sex: Female Ethnicity: White Date of : 1950 Indication: postmenopausal; screening for osteoporosis; height loss; asthma or emphysema; hysterectomy; Referring Provider: COLBY ISAAC Study: Bone densitometry was performed. Exam Date: June 21, 2023 Accession number: [id number] Bone Density: Region BMD T-score Z-score Classification AP Spine (L1-L4) 0.986 -0.6 1.6 Normal Femoral Neck (Left) 0.564 -2.6 -0.7 Osteoporosis Total Hip (Left) 0.929 -0.1 1.5 Normal Femoral Neck (Right) 0.640 -1.9 0.0 Osteopenia Total Hip (Right) 0.824 -1.0 0.6 Normal Total Hip Mean 0.877 -0.6 1.1 Normal World Health Organization criteria for BMD impression classify patients as: Normal (T-score at or above -1.0), Osteopenia (T-score between -1.0 and -2.5), or Osteoporosis (T-score at or below -2.5). 10-year Fracture Risk: FRAX not reported because: Some T-score for Spine Total or Hip Total or Femoral Neck at or below -2.5 Previous Exams: Region Exam Age BMD T-score BMD Change BMD Change Date g/cm2 vs Baseline vs Previous AP Spine(L1-L4) 06/21/2023 72 0.986 -0.6 -0.133* -0.001 06/11/2021 70 0.986 -0.6 -0.132 -0.078* 01/20/2017 66 1.065 0.2 -0.054 -0.048* 03/08/2012 61 1.113 0.6 -0.005 -0.052 12/23/2008 58 1.165 1.1 0.047* 0.047* 05/31/2006 55 1.118 0.6 Total Hip(Left) 06/21/2023 72 0.929 -0.1 -0.066* 0.004 06/11/2021 70 0.925 -0.1 -0.070 -0.023 01/20/2017 66 0.948 0.0 -0.047 0.085* 03/08/2012 61 0.863 -0.6 -0.131 -0.151 12/23/2008 58 1.014 0.6 0.019 0.019 05/31/2006 55 0.995 0.4 Total Hip(Right) 06/21/2023 72 0.824 -1.0 -0.137* 0.001 06/11/2021 70 0.823 -1.0 -0.138 -0.074* 01/20/2017 66 0.897 -0.4 -0.064 0.067* 03/08/2012 61 0.830 -0.9 -0.131 -0.137 12/23/2008 58 0.966 0.2 0.006 0.006 05/31/2006 55 0.961 0.2 *Denotes significance at 95% confidence level, LSC for AP Spine = 0.022 g/cm2, LSC for Total Hip = 0.027 g/cm2 Clinical Information Provided by Patient: Has used the following medications: Vitamin D Has the following medical conditions: Asthma or Emphysema, Hysterectomy Patient maximum height was 64.75 Menopa
== END ==
PROVIDERS: PCP Family Medicine; Visit Provider Neurological Surgery
DX: M43.16 Spondylolisthesis, lumbar region (principal); M81.0 Age-related osteoporosis without current pathological fracture; M85.851 Other specified disorders of bone density and structure, right thigh
CPT/HCPCS: 77080

== ENCOUNTER → 2023-08-10 12:48 | Outpatient (CLI) | payer MEDICARE, OTHER, SELFPAY ==
--- NOTE | ~2023-08-10 | US_ITS ---
Renal-Bladder ultrasound Clinical History: Chronic kidney disease Technique: Real-time sonographic imaging of the kidneys and urinary bladder was performed. Findings: The right kidney measures 9.0 cm in length and the left kidney measures 8.8 cm. There is no hydronephrosis or renal calculus identified. Renal cortical echogenicity is mildly increased. No mary ellen al mass lesion is identified. The urinary bladder is partially distended at the time of this exam. No intraluminal echoes are ident ified. No abnormal wall thickening is seen. Impression: No hydronephrosis. Mild increased renal echogenicity suggest chronic medical renal disease. Reviewed, dictated and finalized at location M. Impression: No hydronephrosis. Mild increased renal echogenicity suggest chronic medical renal disease.
== END ==
PROVIDERS: PCP Family Medicine; Visit Provider Internal Medicine Nephrology
DX: N18.32 Chronic kidney disease, stage 3b (principal)
CPT/HCPCS: 76775

== ENCOUNTER 2024-03-26 03:47 | Day surgery (SDC) | payer MEDICARE, OTHER, SELFPAY ==
[2024-03-23 16:27] VITALS: BMI 34.7
[2024-03-26] VITALS (9 sets, daily range): BP systolic 109–142; BP diastolic 57–80; PULSE 67–74; RESP 17–19; TEMP 36.7; O2SAT 97–100; BMI 35.9
[2024-03-26 07:39] LABS: Basophils Percent Auto 0.4 % (0.2-1.2); Eosinophils Absolute Auto 0.2 K/mm3 (0-0.3); Hematocrit 35.9 % (37.0-47.0); Immature Granulocyte Absolute 0.02 K/mm3 (0.00-0.031); Immature Granulocyte Percent A 0.2 % (0-0.5); Lymphocytes Absolute Auto 1.46 K/mm3 (0.9-3.2); Lymphocytes Percent Auto 18.1 % (18.3-44.2); Mean Corpuscular HGB Conc 30.6 g/dl (32-36); Mean Corpuscular Hemoglobin 23.7 pg (26-34); Mean Corpuscular Volume 77.4 fl (80-100); Mean Platelet Volume 9.9 fl (7.4-10.4); Monocytes Absolute Auto 0.8 K/mm3 (0.1-0.6); Monocytes Percent Auto 10.4 % (2.6-8.5); Neutrophils Absolute Auto 5.5 K/mm3 (1.3-6.7); Neutrophils Percent Auto 67.9 % (45.5-73.1); Platelet Count Result 255 k/mm3 (150-375); Red Blood Count 4.64 M/mm3 (4.2-5.4); Red Cell Distribution Width 19.4 % (11.5-14.5); White Blood Count 8.1 K/mm3 (4.5-10.0)
[2024-03-26 07:48] LABS: Anion Gap 9 mmol/L (4-12); Blood Urea Nitrogen 40 mg/dL (7-17); Calcium 9.1 mg/dL (8.4-10.2); Carbon Dioxide 18 mmol/L (22-30); Chloride 113 mmol/L (98-107); Estimated CRCL calculation 29 ml/min; Estimated Glomerular Filt Rate 30; Glucose 130 mg/dL (65-110); Potassium 3.9 mmol/L (3.4-5.0); Sodium 140 mmol/L (137-145)
--- NOTE | 2024-03-26 08:48 | WPDMODSED ---
Moderate Sedation Note-Pt Data Patient Data Diagnosis: Exertional dyspnea aortic stenosis abnormal stress test Present Complaint: shortness of breath Procedure to be performed/Plan: right and left heart catheterization Allergies Allergy/AdvReac Type Severity Reaction Status Date / Time cats Allergy Mild Other Uncoded 03/26/24 07:31 Home Medications Medication Instructions Recorded Confirmed Type aspirin 81 mg tablet 81 mg PO DAILY 09/01/20 03/23/24 History montelukast 10 mg tablet 10 mg PO HS 09/01/20 03/23/24 History piroxicam 20 mg capsule 20 mg PO DAILY PRN Pain 09/01/20 03/23/24 History tolterodine 4 mg capsule,extended 4 mg PO DAILY 09/01/20 03/23/24 History release 24 hr (Detrol LA) liothyronine 5 mcg tablet 5 mcg PO HS 09/30/21 03/26/24 History melatonin 10 mg capsule 10 mg PO QHS 09/30/21 03/23/24 History rosuvastatin 20 mg tablet 20 mg PO DAILY 03/28/22 03/23/24 History amlodipine 5 mg tablet 5 mg PO HS 01/21/23 03/26/24 History fluticasone propionate 230 2 puff inhalation HS 07/11/23 03/26/24 History mcg-salmeterol 21 mcg/actuation HFA inhaler (Advair HFA) albuterol sulfate 2 puff BYMOUTH Q4H 10/08/23 03/23/24 History cyclobenzaprine 10 mg tablet 10 mg PO TID PRN muscle spasms 10/08/23 03/23/24 History levothyroxine 88 mcg tablet 88 mcg PO DAILY 10/08/23 03/23/24 History losartan 100 0.5 tablet PO DAILY 10/08/23 03/23/24 History mg-hydrochlorothiazide 25 mg tablet pimecrolimus 1 % topical cream 1 applic topical BID 10/08/23 03/23/24 History timolol 0.5 % eye drops 1 drp EACH EYE BID 10/08/23 03/23/24 History multivitamin-ferrous sulfate 18 mg 1 tablet PO DAILY 03/23/24 03/23/24 History tablet (One Daily Multivitamin with Iron) quetiapine 100 mg tablet 100 mg PO HS 03/23/24 03/23/24 History ropinirole 0.25 mg tablet 0.25 mg PO HS 03/23/24 03/23/24 History Current Medications: Active Medications Sodium Chloride (Normal Saline Iv) 500 mls @ 100 mls/hr IV CONT .Q5H MARIANELA Sedation/Anesthesia: No previous sedation/anesthesia problems (including family history). [facility] Past Medical History Medical History Aortic stenosis Arthritis Asthma Bloating Chronic low back pain COPD (chronic obstructive pulmonary disease) Depression Diabetes Diastolic congestive heart failure Hyperlipidemia Hypertension Hypothyroidism Irritable bowel syndrome with both constipation and diarrhea Obstructive sleep apnea Pancreatic cyst Steatohepatitis Surgical History Surgical History H/O colonoscopy H/O: hysterectomy History of cholecystectomy Hx of cataract surgery Hx of tonsillectomy Family History Family History Father Diabetes mellitus Family history of lung cancer Lung cancer Hypertension Cerebrovascular accident Asthma Mother Diabetes mellitus Family history of irritable bowel syndrome Asthma Parkinson disease Other Family history of arthritis Family history of cardiovascular disease Family history of congestive heart failure Family history of hearing loss Social History Social History (Updated 01/23/24 @ 16:13 by Racquel Kelly MA) Social History: Katelin is somewhat confident when filling out medical forms. In the last 12 months Katelin has not received any assistance from an organization or program. Smoking status: Never smoker Second hand tobacco smoke exposure: Yes Alcohol intake: former Substance use: never Substance use type: does not use Other substance usage details: reports using prescription medication as MD orders only Last use: last ETOH use when pt was in early 30's Do You Feel Safe in your Home?: Yes Lack of Transportation: No Lack of Food: Never True Current Housing: I Have Housing Concerned About Future Housing: No Difficulty Paying Gas/Electric Bi
--- NOTE | 2024-03-26 09:53 | WPDCARDPROC ---
Cardiac Cath Procedure Note Date of procedure:: 03/26/24 Performing physician:: Castro Lopez MD Indication:: exertional dyspnea aortic valve stenosis mild by echo abnormal nuclear stress test Brief clinical history:: this is a 73-year-old woman who is been followed in the office because of aortic valve stenosis which up till now has been mild. In the office she was reporting symptoms of NELSON. For that reason a nuclear stress test was done which has been reported as showing evidence of anterior wall ischemia. For this reason a angiogram has been recommended. Because of aortic valve disease right left heart catheterization is planned Procedure Procedure performed:: right and left heart catheterization Angio-Seal to right femoral artery Sedation/Medication given:: fentanyl 50 mg Versed 2 mg case start time 9:05 a.m. case end time 9:49 a.m. sedation provided by Chula Fernandez RN, trained observer Access site:: right femoral artery right femoral vein Estimated blood loss:: 25 cc Procedure note:: patient was brought to the cardiac catheterization lab in the postabsorptive state the right femoral triangle was prepared and draped in the usual fashion. Using the modified Seldinger technique the femoral vein was punctured and a 7 [place] sheath was placed. Artery was then punctured using the same technique and a 45 cm 6 [place] sheath was placed into the central aorta. Following this right heart catheterization was carried out I used a C tip [place] catheter to measure right-sided hemodynamics, thermodilution cardiac outputs and sample av O2 difference. Following this the [place] catheter was removed. A 5 [place] angled pigtail catheter was then advanced to the aortic root and the aortic valve probe using the straight wire. I was not successful crossing the valve with this catheter. I then withdrew the pigtail and was able to successfully cross the aortic valve using the right coronary catheter and the straight wire. Simultaneous left ventricular and aortic pressures were then measured the gradients were calculated as well as the aortic valve area. Because of renal insufficiency a left ventriculogram was not performed. Following this the right coronary catheter was then used to engage and inject the right coronary artery in orthogonal projections. The a standard 5 [place] FL4 catheter was used to engage and inject the left coronary artery in multiple projections. The cineangiograms were then reviewed and the case was terminated. An angiogram was performed to the femoral artery through the sheath after which a 6 [place] Angio-Seal device was deployed at the site of the arterial puncture. While pressure was being held on that the venous sheath was removed in the laborer chemical processing as well. Patient was taken to the holding area in stable condition there were no apparent procedural complications and she left the laborer chemical processing with no signs of groin hematoma. Findings:: Hemodynamics: Right atrial pressure is 8 mm Hg, right ventricle 48 over 6 end-diastolic 12, pulmonary artery pressure 47 over 23, pulmonary capillary wedge pressure 17, central aorta 140/58, left ventricle 165 over 5 end-diastolic 10. Thermodilution cardiac output is 4.1 liters/minute giving an index of 2.2. Aortic valve area is 1.7 cm2. The left main coronary artery is short but widely patent the left anterior descending is a medium caliber artery with no significant atherosclerosis. The LAD its diagonal and septal branches are unremarkable angiographically the circumflex is a large caliber vessel is codominant and gives rise to the marginal branches and 2 large posterior branches. The circumflex is smooth and free of disease. Right coronary artery is medium in caliber and codominant. The right coronary artery is somewhat tortuous but angiographically free of disease. Conclusion:: 1. codominant coronary circulation with no angiographic evidence of
== END 2024-03-26 13:39 | disposition home or self-care (01) ==
PROVIDERS: Visit Provider Specialist
PROC: 4A023N8 Measurement of Cardiac Sampling and Pressure, Bilateral, Percutaneous Approach (ICD-10-PCS; CPT 93453; principal; 2024-03-26 08:30)
DX: I35.0 Nonrheumatic aortic (valve) stenosis (principal); R94.39 Abnormal result of other cardiovascular function study; R06.09 Other forms of dyspnea; J44.9 Chronic obstructive pulmonary disease, unspecified; I11.0 Hypertensive heart disease with heart failure; I50.30 Unspecified diastolic (congestive) heart failure; E11.9 Type 2 diabetes mellitus without complications; E78.5 Hyperlipidemia, unspecified; E03.9 Hypothyroidism, unspecified; K58.2 Mixed irritable bowel syndrome; G47.33 Obstructive sleep apnea (adult) (pediatric); K75.81 Nonalcoholic steatohepatitis (NASH); F32.A Depression, unspecified; Z79.82 Long term (current) use of aspirin; Z79.51 Long term (current) use of inhaled steroids
CPT/HCPCS: 36415; 80048; 85025; 93460; C1760; C1769; C1887; C1894; G0269; J1644; J2250; J3010; J7040

== ENCOUNTER 2024-04-07 10:44 | Outpatient (CLI) | payer MEDICARE, OTHER, SELFPAY ==
--- NOTE | ~2024-04-07 | MR_ITS ---
Procedure: MR lumbar spine wo con Ordering provider: Oralia Alford, [employer] History: . mid back pain prior to post l-sp surg 09/2023, no trauma . Comparison: May 30, 2023 Technique: MRI lumbar spine without contrast. FINDINGS: SPINAL CORD: Mild spinal canal stenosis at the level of L2-L3 with thickening of the ligamenta flava mild diffuse disc bulge. Possible Right nerve root compression. Diffuse disc bulge at the level of L5-S1. VERTEBRAL BODIES: Postoperative changes are seen at the level of L3, L4 and L5. Status post laminecto my with spinal fixation. Minimal anterolisthesis seen at the level of L4-L5. Normal height and alignm ent. No compression fracture. Normal marrow signal. DISK SPACES: Degenerative disc changes seen at the level of L2-L3, L3-L4 and L4-5. STENOSIS: None. PARASPINOUS SOFT TISSUES: Subcutaneous fluid collection is seen measuring 8 x 1.1 x 2.7 cm. Edema in the surrounding fat and surgical bed is also noted. IMPRESSION: No compression fracture. Postoperative changes. Diffuse disc bulge at the level of L5-S1. Mild diffuse disc bulge at the level of L2-L3 with possible right nerve root compression Reviewed, dictated and finalized at location A. IMPRESSION: No compression fracture. Postoperative changes. Diffuse disc bulge at the level of L5-S1. Mild diffuse disc bulge at the level of L2-L3 with possible right nerve root co mpression
--- NOTE | ~2024-04-07 | MR_ITS ---
EXAMINATION: MR thoracic spine wo con DATE: 04/07/2024 12:12 INDICATION: Mid back pain. TECHNIQUE: Magnetic resonance imaging (MRI) of the thoracic spine was performed without intravenous c ontrast. COMPARISON: None FINDINGS: There is 7 degrees dextrocurvature of thoracic spine. Vertebral body heights are normal. Th ere is mildly decreased disc height at T5-T6. There is multilevel facet joint osteoarthritis, severe on the left at T2-T3. On the left, there is mild neural foraminal stenosis at T2-T3. At T5-T6, there is a right central extrusion with mild central canal stenosis and ventral indentation of the spinal c ord. At T8-T9, there is a left central extrusion with mild central canal stenosis. The spinal cord si gnal intensity is normal. The conus medullaris is at T12-L1. IMPRESSION: 1. Mild thoracic spondylosis. Reviewed, dictated and finalized at location E.
== END 2024-04-07 10:45 ==
LOC: MICIMG 10:46
PROVIDERS: PCP Nurse Practitioner Family; Visit Provider Nurse Practitioner Family
DX: M47.894 Other spondylosis, thoracic region (principal); M51.26 Other intervertebral disc displacement, lumbar region
CPT/HCPCS: 72146; 72148

== ENCOUNTER 2024-06-19 14:05 | Outpatient (CLI) | payer MEDICARE, OTHER, SELFPAY ==
[2024-06-19 14:53] LABS: Albumin Level 4.3 g/dL (3.5-5.1); Anion Gap 11 mmol/L (4-12); Blood Urea Nitrogen 37 mg/dL (7-17); Calcium 9.6 mg/dL (8.4-10.2); Carbon Dioxide 23 mmol/L (22-30); Chloride 105 mmol/L (98-107); Estimated Glomerular Filt Rate 34; Glucose 124 mg/dL (65-110); Potassium 4.4 mmol/L (3.4-5.0); Sodium 139 mmol/L (137-145)
[2024-06-19 14:57] LABS: Creatinine Urine 97.5 mg/dL; Total Protein Urine Random 8 mg/dL; Ur Ttl Prot Creatinine Ratio 0.08 mg/mg (0-0.20)
== END 2024-06-19 14:06 | disposition home or self-care (01) ==
LOC: ANHLAB 14:12
PROVIDERS: PCP Nurse Practitioner Family; Visit Provider Internal Medicine Nephrology
DX: I12.9 Hypertensive chronic kidney disease with stage 1 through stage 4 chronic kidney disease, or unspecified chronic kidney disease (principal); E11.22 Type 2 diabetes mellitus with diabetic chronic kidney disease; N18.32 Chronic kidney disease, stage 3b
CPT/HCPCS: 36415; 80069; 82570; 84156

== ENCOUNTER 2024-07-20 13:18 | Outpatient (CLI) | payer MEDICARE, OTHER, SELFPAY ==
--- NOTE | ~2024-07-20 | MM_ITS ---
EXAMINATION: MM screening arash BI w ginger HISTORY: Screening TECHNIQUE: Craniocaudal and mediolateral oblique 3-D tomosynthesis images were obtained and synthetic 2-D images were generated. CAD analysis was submitted and interpreted. COMPARISON: Comparison to multiple prior studies sequentially, with oldest reviewed study dated . BREAST PARENCHYMAL COMPOSITION: Dense: The breasts are heterogeneously dense, which may obscure small masses FINDINGS: There is no evidence of suspicious mass, calcification, or architectural distortion to sugg est malignancy in either breast. There has been no suspicious interval change. IMPRESSION: 1. No mammographic evidence of malignancy. 2. Recommend routine screening mammography in one year. BI-RADS Category 1: Negative Reviewed, dictated and finalized at location B.
== END 2024-07-20 13:19 | disposition home or self-care (01) ==
PROVIDERS: PCP Nurse Practitioner Family; Visit Provider Nurse Practitioner Family
DX: Z12.31 Encounter for screening mammogram for malignant neoplasm of breast (principal)
CPT/HCPCS: 77063; 77067

== ENCOUNTER 2024-10-22 13:17 | Outpatient (CLI) | payer MEDICARE, OTHER, SELFPAY ==
--- NOTE | 2024-10-22 13:30 | ECG_ITS ---
Test Date: 2024-10-22 13:45:57 Measurements Intervals [place] Rate: 96 P: 61 SC: 207 QRS: -48 QRSD: 109 T: 99 QT: 347 QTc: 439 Interpretive Statements SINUS RHYTHM POSSIBLE RIGHT ATRIAL ENLARGEMENT [0.25mV P-WAVE] LEFT ATRIAL ENLARGEMENT [-0.15mV P-WAVE IN V1/V2] INFERIOR MYOCARDIAL INFARCTION , OF INDETERMINATE AGE [40+ ms Q WAVE AND/OR ST/T ABNORMALITY IN II/aVF] ANTEROSEPTAL MYOCARDIAL INFARCTION , OF INDETERMINATE AGE [40+ ms Q WAVE IN V1-V4] MODERATE T-WAVE ABNORMALITY, CONSIDER LATERAL ISCHEMIA [-0.1+ mV T-WAVE IN I/aVL/V5/V6] No previous ECG available for comparison Electronically Signed On 10-22-2024 18:05:16 [employer] by Alida Singh M.D.
[2024-10-22 15:12] LABS: Hematocrit 39.2 % (37.0-47.0); Hemoglobin 12.4 g/dL (12.0-15.0); Mean Corpuscular HGB Conc 31.6 g/dl (32-36); Mean Corpuscular Hemoglobin 26.4 pg (26-34); Mean Corpuscular Volume 83.6 fl (80-100); Mean Platelet Volume 9.9 fl (7.4-10.4); Platelet Count Result 207 k/mm3 (150-375); Red Blood Count 4.69 M/mm3 (4.2-5.4); Red Cell Distribution Width 13.7 % (11.5-14.5); White Blood Count 5.2 K/mm3 (4.5-10.0)
[2024-10-22 15:27] LABS: Partial Thromboplastin Time 27.6 Seconds (22.3-36.8)
[2024-10-22 15:37] LABS: Albumin Level 4.2 g/dL (3.5-5.1); Anion Gap 6 mmol/L (4-12); Blood Urea Nitrogen 35 mg/dL (7-17); Calcium 9.5 mg/dL (8.4-10.2); Carbon Dioxide 23 mmol/L (22-30); Chloride 111 mmol/L (98-107); Estimated Glomerular Filt Rate 34; Glucose 129 mg/dL (65-110); Potassium 4.2 mmol/L (3.4-5.0); Sodium 140 mmol/L (137-145)
[2024-10-22 15:49] LABS: Parathyroid Intact 62.4 pg/mL (14.5-75.2)
[2024-10-22 15:50] LABS: Add Urine Microscopic? YES; Appearance Urine Clear (Clear); Bacteria Urine None Seen /hpf; Bilirubin Urine Negative (Negative); Blood Urine 2+ (Negative); Color Urine Yellow (Yellow); Glucose Urine UA Negative (Negative); Granular Casts Urine Present /lpf; Ketones Urine Trace mg/dL (Negative); Leukocyte Esterase Ur 2+ LEU/UL (Negative); Need Manual Microscopic Reviewed; Nitrate Urine Negative (Negative); Non Pathogenic Casts 0-2; Protein Urine Trace mg/dL (Negative); Specific Grav Ur 1.018 (1.001-1.035); Squamous Epithelial Cell Urine Occasional /hpf (Few); Urobilinogen Urine 0.2 mg/dL (<2.0); WBC Urine 0-5 /hpf (0-3)
[2024-10-22 15:59] LABS: Vitamin D 25 Hydroxy 57.4 ng/mL
[2024-10-22 16:01] LABS: Creatinine Urine 171.8 mg/dL; Total Protein Urine Random 13 mg/dL; Ur Ttl Prot Creatinine Ratio 0.08 mg/mg (0-0.20)
== END 2024-10-22 13:18 | disposition home or self-care (01) ==
PROVIDERS: Internal Medicine Nephrology; PCP Family Medicine; Visit Provider Neurological Surgery
DX: Z01.818 Encounter for other preprocedural examination (principal); E78.5 Hyperlipidemia, unspecified; E11.22 Type 2 diabetes mellitus with diabetic chronic kidney disease; I12.9 Hypertensive chronic kidney disease with stage 1 through stage 4 chronic kidney disease, or unspecified chronic kidney disease; N18.32 Chronic kidney disease, stage 3b; I50.30 Unspecified diastolic (congestive) heart failure; E55.9 Vitamin D deficiency, unspecified; N25.81 Secondary hyperparathyroidism of renal origin; M96.1 Postlaminectomy syndrome, not elsewhere classified
CPT/HCPCS: 36415; 80069; 81001; 82306; 82570; 83970; 84156; 85027; 85610; 85730; 87086; 93005

== ENCOUNTER 2024-11-07 00:31 | Day surgery (SDC) | payer MEDICARE, OTHER, SELFPAY ==
[2024-10-22 14:21] VITALS: BP 133/66; PULSE 97; RESP 16; TEMP 36.7; O2SAT 98; BMI 39.5
--- NOTE | 2024-10-22 14:40 | PC.NURSE ---
Report to the Outpatient Waiting Room, entrance under the green pavilion located off [facility], at time ___0800am____ on date _11/07/24 . Planned Procedure Time: _1000am .? Time changes happen often and if your time is changed the preop area will call you the afternoon before. - You and your visitor will be asked to self-screen and do not enter if you have any COVID symptoms. Please call surgeon if you need to reschedule. - A mask is optional within the hospital at this time. Patients may have clear liquids (water, carbonated beverages, clear teas, apple juice) until 3 hours prior to surgery with a maximum of 20 ounces. - No food from midnight until time of surgery and no smoking. This includes no chewing gum, candy or mints.(0700am) Take only the following medications with a SIP of water on the morning of surgery: __Amlodipine and Levothyroxine. -Inhalers if needed. DO NOT STOP ANY OF YOUR OTHER PRESCRIPTION MEDICATIONS PRIOR TO SURGERY EXCEPT THE FOLLOWING Medications to discontinue per physician ____Hold Aspirin [address] Dumont ( pt to clear w Dr Lopez) and for 7 days after. Date to take last dose____10/30/23 Hold all vitamins and supplements for 3 days prior per Anesthesia. Date to take last dose is 11/03/24 Please no make-up, nail ghanaian, hairspray, perfume, deodorant, or body powder the day of surgery.? No jewelry (including any body piercings) or valuables the day of surgery, leave them at home.? Please take a shower or bath the night before, or the morning of, surgery with an antibacterial soap.? Wear comfortable, loose fitting clothing - Jewelry must be removed prior to entering the operating room.? Rings and piercings that are not removed may be cut off. - The hospital will not accept responsibility for valuables.? - Please leave all valuables, including medications, at home the day of surgery. If you are going home after surgery, a licensed ems driver must drive you home.? - NO public transportation without another adult if you receive anesthesia. - We recommend that an adult stay with you for 24 hours following discharge. - We also recommend that you do not drive, make important decision, drink alcoholic beverages, or take any drugs that were not prescribed by your health care provider for at least 24 hours after your discharge time. Follow any additional instructions given to you from your surgeon. Telephone instructions given to ___Patient and asked if any additional questions and then verbalized understanding. Patient advised to call surgeon office or pre surgery nurse liaison [phone] if any additional questions.
[2024-11-07] VITALS (9 sets, daily range): BP systolic 126–151; BP diastolic 50–78; PULSE 80–92; RESP 12–20; TEMP 36.1–37.6; O2SAT 90–100
--- NOTE | ~2024-11-07 | XR_ITS ---
XR fluoroscopy no charge Indication: T8 laminotomy for placement of spinal stimulator TECHNIQUE: Fluoroscopy used during T8 laminotomy for placement of spinal stimulator performed by [Laisha Dumont MD] on 11/07/2024. 23 seconds of fluoroscopy with one fluoroscopic images captured . FINDINGS: Correlate with procedure note. IMPRESSION: Fluoroscopy used during T8 laminotomy for placement of spinal stimulator. Reviewed, dictated and finalized at location A. ER [employer] IMPRESSION: Fluoroscopy used during T8 laminotomy for placement of spinal stimu lator.
[2024-11-07] MEDS: LACTATED RINGERS 1,000 ML 30 ML IV CONT ×2 (08:45→12:43)
[2024-11-07 08:50] LABS: Glucose Point of Care 119 mg/dl (65-105)
--- NOTE | 2024-11-07 09:36 | P.PNAN_ITS ---
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 Patient Data Age: 74 Gender: F Height: 1.57 m Weight: 90.6 kg Last Vital Signs Temp 37.6 C 11/07/24 08:16 Pulse 80 11/07/24 08:16 Resp 20 11/07/24 08:16 BP 151/62 H 11/07/24 08:16 Pulse Ox 99 11/07/24 08:16 O2 Del Method Room Air 11/07/24 08:16 Allergies Allergy/AdvReac Type Severity Reaction Status Date / Time cat dander Allergy Intermediate Congested Verified 11/07/24 08:14 Home Medications ?Medication ?Instructions ?Recorded ?Confirmed ?Type aspirin 81 mg tablet 81 mg PO DAILY 09/01/20 11/07/24 History piroxicam 20 mg capsule 20 mg PO DAILY PRN Pain 09/01/20 11/07/24 History liothyronine 5 mcg tablet 5 mcg PO HS 09/30/21 11/07/24 History rosuvastatin 20 mg tablet 20 mg PO DAILY 03/28/22 11/07/24 History losartan 100 0.5 tablet PO DAILY 10/08/23 11/07/24 History mg-hydrochlorothiazide 25 mg tablet timolol 0.5 % eye drops 1 drp EACH EYE BID 10/08/23 11/07/24 History quetiapine 100 mg tablet 100 mg PO HS 03/23/24 11/07/24 History ropinirole 0.25 mg tablet 0.25 mg PO HS 03/23/24 11/07/24 History cholecalciferol (vitamin D3) 50 50 mcg PO DAILY 09/11/24 11/07/24 History mcg (2,000 unit) capsule levothyroxine 100 mcg tablet 100 mcg PO DAILY 09/11/24 11/07/24 History (Unithroid) melatonin 10 mg tablet 10 mg PO QHS 09/11/24 11/07/24 History amlodipine 5 mg tablet 5 mg PO DAILY #90 tabs 09/12/24 11/07/24 Rx fluticasone propionate 230 2 puff inhalation BID #12 grams 09/12/24 11/07/24 Rx mcg-salmeterol 21 mcg/actuation HFA inhaler (Advair HFA) montelukast 10 mg tablet 10 mg PO DAILY #90 tabs 09/12/24 11/07/24 Rx tolterodine 4 mg capsule,extended 4 mg PO DAILY #90 caps 09/12/24 11/07/24 Rx release 24 hr (Detrol LA) azithromycin 250 mg tablet See Rx Instructions PO .COMPLEX 11/07/24 11/07/24 History Laboratory Tests 11/07/24 08:46 POC Capillary Glucose 119 H mg/dl (65-105) Patient hx anesthesia problems: none Family hx anesthesia problems: none Results Review: All pre-operative results and documents have been reviewed as part of the pre- operative evaluation. [facility] Past Medical History Medical History Arthritis Asthma Bloating Pancreatic cyst Irritable bowel syndrome with both constipation and diarrhea Depression COPD (chronic obstructive pulmonary disease) Obstructive sleep apnea Chronic low back pain Diastolic congestive heart failure Aortic stenosis Steatohepatitis Hyperlipidemia Hypothyroidism Surgical History Surgical History Hx of cataract surgery H/O colonoscopy History of cholecystectomy H/O: hysterectomy Hx of tonsillectomy Family History Family History Father Diabetes mellitus Family history of lung cancer Lung cancer Hypertension Cerebrovascular accident Asthma Mother Diabetes mellitus Family history of irritable bowel syndrome Asthma Parkinson disease Other Family history of arthritis Family history of cardiovascular disease Family history of congestive heart failure Family history of hearing loss Social History Social History Social History: Katelin is somewhat confident when filling out medical forms. In the last 12 months Katelin has not received any assistance from an organization or program. Smoking status: Never smoker Second hand tobacco smoke exposure: Yes Alcohol intake: never Substance use: never Substance use type: does not use Other substance usage details: reports using prescription medication as MD orders only Last use: last ETOH use when pt was in early 30's Do You Feel Safe in your Home?: Yes Lack of Transportation: No Lack of Food: Never True Current Housing: I Have Housing Concerned About Future Housing: No Difficulty Paying Gas/Electric Bills: No Difficulty Paying for Meds: No Currently Unemployed: No Education: High School Diploma/GED Difficulty w/ Childcare or Family Care: YES Living arrangements: with family Additional living arrangements comments: Gender identity (if verbalized by the patient): Female Spiritual care concerns: No Anes - Eval Final PreProcedure Day of Procedure 11/07/24 09:36 Patient weight: obese Heart: regular rate and rhythm Lungs: clear to auscultation Airway: Mallampati scale class III Neurological: alert and oriented Last oral intake: >/= 8 hours ASA classification: IV Emergent: no Anesthetic plan: proceed Anesthesia type and monitoring: general ETT and standard monitoring Results Review: All pre-operative results and documents have been reviewed as part of the pre- operative evaluation. Informed Consent: The patient's anesthetic plan and its attendant risks and benefits were discussed with the patient/family/POA. Questions were solicited and answers provided to the satisfaction of the patient/family/POA.
--- NOTE | 2024-11-07 10:11 | P.HP_ITS ---
H&P: HPI History of Present Illness Date/Time: 11/07/24 10:11 Chief Complaint: back pain Narrative: Ms. Edgar is a 74-year-old female with history of chronic kidney disease, COPD, aortic valve stenosis, hyperlipidemia, and hypothyroidism who was referred by [facility] for consideration of a spinal cord stimulator placement. She had L3-5 decompression and fusion with Dr. Rutledge 1 year ago. She continues to have pain at the level of her waist which did not improve with surgery and may have worsened her pain. She did physical therapy and injections after surgery without improvement. She recently had a trial of spinal cord stimulation with an [employer] platform from which she got 75-80% relief of pain. She describes pain at the waistline primarily with standing and walking. This also worsens with bending over. She can get relief with sitting and lying down. She denies any leg pain paresthesias at this time. She notably follows with Dr. Lopez for her heart. She had a heart catheterization earlier this year which appears unremarkable. She does take a baby aspirin on a daily basis. Review of Systems Review of Systems: All systems reviewed & are unremarkable except as noted in HPI and below PMFSH Past Medical History Medical History Arthritis Asthma Bloating Pancreatic cyst Irritable bowel syndrome with both constipation and diarrhea Depression COPD (chronic obstructive pulmonary disease) Obstructive sleep apnea Chronic low back pain Diastolic congestive heart failure Aortic stenosis Steatohepatitis Hyperlipidemia Hypothyroidism Surgical History Surgical History Hx of cataract surgery H/O colonoscopy History of cholecystectomy H/O: hysterectomy Hx of tonsillectomy Family History Family History Father Diabetes mellitus Family history of lung cancer Lung cancer Hypertension Cerebrovascular accident Asthma Mother Diabetes mellitus Family history of irritable bowel syndrome Asthma Parkinson disease Other Family history of arthritis Family history of cardiovascular disease Family history of congestive heart failure Family history of hearing loss Social History Social History Social History: Katelin is somewhat confident when filling out medical forms. In the last 12 months Katelin has not received any assistance from an organization or program. Smoking status: Never smoker Second hand tobacco smoke exposure: Yes Alcohol intake: never Substance use: never Substance use type: does not use Other substance usage details: reports using prescription medication as MD orders only Last use: last ETOH use when pt was in early 30's Do You Feel Safe in your Home?: Yes Lack of Transportation: No Lack of Food: Never True Current Housing: I Have Housing Concerned About Future Housing: No Difficulty Paying Gas/Electric Bills: No Difficulty Paying for Meds: No Currently Unemployed: No Education: High School Diploma/GED Difficulty w/ Childcare or Family Care: YES Living arrangements: with family Additional living arrangements comments: Gender identity (if verbalized by the patient): Female Spiritual care concerns: No Meds Home Medications and Allergies Home Medications ?Medication ?Instructions ?Recorded ?Confirmed ?Type aspirin 81 mg tablet 81 mg PO DAILY 09/01/20 11/07/24 History piroxicam 20 mg capsule 20 mg PO DAILY PRN Pain 09/01/20 11/07/24 History liothyronine 5 mcg tablet 5 mcg PO HS 09/30/21 11/07/24 History rosuvastatin 20 mg tablet 20 mg PO DAILY 03/28/22 11/07/24 History losartan 100 0.5 tablet PO DAILY 10/08/23 11/07/24 History mg-hydrochlorothiazide 25 mg tablet timolol 0.5 % eye drops 1 drp EACH EYE BID 10/08/23 11/07/24 History quetiapine 100 mg tablet 100 mg PO HS 03/23/24 11/07/24 History ropinirole 0.25 mg tablet 0.25 mg PO HS 03/23/24 11/07/24 History cholecalciferol (vitamin D3) 50 50 mcg PO DAILY 09/11/24 11/07/24 History mcg (2,000 unit) capsule levothyroxine 100 mcg tablet 100 mcg PO DAILY 09/11/24 11/07/24 History (Unithroid) melatonin 10 mg tablet 10 mg PO QHS 09/11/24 11/07/24 History amlodipine 5 mg tablet 5 mg PO DAILY #90 tabs 09/12/24 11/07/24 Rx fluticasone propionate 230 2 puff inhalation BID #12 grams 09/12/24 11/07/24 Rx mcg-salmeterol 21 mcg/actuation HFA inhaler (Advair HFA) montelukast 10 mg tablet 10 mg PO DAILY #90 tabs 09/12/24 11/07/24 Rx tolterodine 4 mg capsule,extended 4 mg PO DAILY #90 caps 09/12/24 11/07/24 Rx release 24 hr (Detrol LA) azithromycin 250 mg tablet See Rx Instructions PO .COMPLEX 11/07/24 11/07/24 History Allergies Allergy/AdvReac Type Severity Reaction Status Date / Time cat dander Allergy Intermediate Congested Verified 11/07/24 08:14 Vital Signs Vital Signs - 24 hr 11/07/24 08:16 Temperature 99.6 F Pulse Rate 80 Respiratory Rate 20 Blood Pressure 151/62 H Pulse Oximetry 99 Oxygen Delivery Room Air Exam Narrative: Pain to palpation in mid lumbar region Unless otherwise stated above, the patient's physical exam is as follows: General: -Well developed and well nourished. No a cute distress. Cooperative with exam. Mental status: -Awake and oriented to person, place, an d time. Affect is normal. -Fund of knowledge appropriate -Recent and remote memory are intact -Attention span and concentration appear normal -Language function is normal -There is no evidence of aphasia in conv ersational speech. Cranial nerves: -CN II: Visual barger full to bedside co nfrontation -CN III, IV, : Pupils equal, round, an d reactive to light; extraocular movements, no ptosis, no nystagmus -CN V: Facial sensation intact in V1 thr ough V3 distributions -CN VII: Face symmetric -CN VIII: Hearing intact to conversation al speech -CN IX, X: Palate elevates symmetrically ; normal phonation -CN XI: Symmetric full strength of mcmullen ocleidomastoid and trapezius muscles -CN XII: Tongue protrudes midline Integumentary: -No obvious skin lesions or masses Motor: -Muscle tone normal without spasticity o f flaccidity. No atrophy. No fasciculations. -No pronator drift -Right upper extremity: deltoid 5/5, bic eps 5/5, triceps 5/5, wrist extensors 5/5, wrist flexors 5/5, intrinsics 5/5 -Left upper extremity: deltoid 5/5, michele ps 5/5, triceps 5/5, wrist extensors 5/5, wrist flexors 5/5, intrinsics 5/5 -Right lower extremity: iliopsoas 5/5, q uadriceps 5/5, hamstrings 5/5, tibialis anterior 5/5, gastroc-soleus 5/5, EHL 5/5 -Left lower extremity: iliopsoas 5/5, qu adriceps 5/5, hamstrings 5/5, tibialis anterior 5/5, gastroc-soleus 5/5, EHL 5/5 Sensory: -Intact to light touch throughout -Normal proprioception throughout Reflexes: -1-2+ DTR's throughout -No Yarbrough's, clonus, or Babinski bilat erally Musculoskeletal: -Lumbar spine: no tenderness to palpatio n, no pain, and normal lumbosacral spine movements -Epqpzluo-qpy-aalod test negative -Hip: normal range of motion, no crepitu s bilaterally. No pain reproduced on IRA or FAIR testing bilaterally -Knee: no instability, subluxation or la xity, and no crepitus bilaterally Assessment and Plan Assessment and plan (1) Failed back surgical syndrome: Code(s): M96.1 - Postlaminectomy syndrome, not elsewhere classified Status: Acute Plan Ms. Edgar is a 74-year-old female with history of previous L3-[address] Rutledge 1 year ago who has ongoing pain at her waist with standing and walking. She had a trial of spinal cord stimulation with [employer] from which she has 75-80% her pain. She would like to proceed with permanent implantation. I reviewed her postoperative imaging on which I do not see any obvious pathology for which surgery directly to her spine would be beneficial. Therefore, I think it is reasonable to proceed with surgery in the form of T8 laminotomy for placement spinal cord stimulator. According to Judah from [employer], we need to get the paddle into T6. She would like her generator on the right side. We discussed surgery in detail including risks, expected recovery, and restrictions surgery.
--- NOTE | 2024-11-07 10:11 | WPDHPUPDATE1 ---
History and Physical Update Update Date/Time: 11/07/24 10:11 History and Physical has been reviewed, including an updated exam of the patient. There are NO changes in the patient's condition. Risks, benefits, and alternatives have been discussed and questions answered. Patient agrees to proceed with procedure.
[2024-11-07] MEDS: ceFAZolin 2 GM/D5W 50 ML 2 GM/50 ML BAG IVPB (10:44)
[2024-11-07] MEDS: BUPIVACAINE/EPINEPHRINE 0.5% 30 ML VIAL INFILTRATE (11:27)
[2024-11-07] MEDS: VANCOMYCIN HCL 1,000 MG VIAL 500 MG TOPICAL (11:28)
--- NOTE | 2024-11-07 12:50 | P.OP_ITS ---
Procedure Note - Detailed Date of Procedure 11/07/24 Pre-op Diagnosis failed surgical back syndrome Post-op Diagnosis Same Procedure Performed 1. T8 laminotomy for placement of paddle spinal cord stimulator 2. Placement of generator in right upper gluteal region 3. Use of C-arm for fluoroscopy Surgeon Laisha Dumont MD Anesthesia General Indications Ms. Edgar is a 74-year-old female with history of previous L3-[address] Rutledge 1 year ago who has ongoing pain at her waist with standing and walking. She had a trial of spinal cord stimulation with [employer] from which she has 75-80% her pain. She would like to proceed with permanent implantation. I reviewed her postoperative imaging on which I do not see any obvious pathology for which surgery directly to her spine would be beneficial. Therefore, I think it is reasonable to proceed with surgery in the form of T8 laminotomy for placement spinal cord stimulator. According to Judah from [employer], we need to get the paddle into T6. She would like her generator on the right side. We discussed surgery in detail including risks, expected recovery, and restrictions surgery. Risks of surgery include bleeding, pain, infection, CSF leak, epidural hematoma, spinal cord injury, weakness, paresthesias, and anesthetic complications. Description of Procedure The patient was brought to the OR where general anesthesia was induced. The patient was turned prone onto the OR table with Alex frame. All pressure points were padded. C-arm was used to plan the level of the thoracic incision. A right gluteal incision was also planned for the generator site. The surgical site was prepped and draped in usual sterile fashion. Perioperative antibiotics were given. Local anesthesia was injected into the planned incisions. A 10-blade scalpel was used to open the right gluteal incision. A bovie was used to create a subcutaneous pocket inferiorly. The pocket was packed with a wet Raytec. Next, the thoracic incision was opened with the scalpel, and the soft tissue was dissected with the bovie. The laminae were exposed bilaterally at T8. This was confirmed with the C-arm. A laminotomy was performed at T8 with the Claudia. The laminotomy opening was widened laterally. A curved currette, Woodsen, and 3-penfield were used to separate the dura from the laminae. The paddle stimulator was then placed into the epidural space. C-arm verified placement into T6, matching areas of stimulation from the trial. Anchors were placed into the leads which were attached to the muscle. The leads were tunneled to the gluteal incision. The leads were connected to the generator which was then placed into the gluteal pocket. The generator was secured with a silk suture. All incisions were irrigated copiously. Hemostasis was ensured in the thoracic incision with the bipolar and Surgiflo. Stimulon beads were placed into both incisions. The fascia was closed with 0 vicryl. The dermis was closed with 2-0 and 3-0 vicryl. The dermis at the generator site was closed with 2-0 vicryl. The skin was closed in both incisions with 4-0 monocryl. Dermabond was then placed. The patient was returned supine, extubated, and transferred to PACU. Billing codes: 50740, 72204 Estimated Blood Loss 100 Drains No Packing No Pathology None sent Complications None Condition Stable Disposition PACU [facility] Billing Surgery - Charge Forward: Surgery Billing
[2024-11-07] MEDS: fentaNYL CITRATE INJ (*CRX) 100 MCG/2 ML VIAL 25 MCG IV PUSH ×7 (12:55→13:33)
[2024-11-07 13:08] LABS: Glucose Point of Care 171 mg/dl (65-105)
[2024-11-07] MEDS: ONDANSETRON INJ 4 MG/2 ML VIAL IV PUSH (13:54)
[2024-11-07] MEDS: oxyCODONE HCL (*CRX) 5 MG TAB IR PO (14:07)
--- NOTE | 2024-11-07 14:54 | SUR.PHASEII ---
1450: Patient Dressed and ready for dc. Waiting on ride.
== END 2024-11-07 15:18 | disposition home or self-care (01) ==
PROVIDERS: PCP Family Medicine; Visit Provider Neurological Surgery
PROC: (CPT 63685; principal; 2024-11-07 10:00)
DX: M96.1 Postlaminectomy syndrome, not elsewhere classified (principal); J44.9 Chronic obstructive pulmonary disease, unspecified; E78.5 Hyperlipidemia, unspecified; N18.9 Chronic kidney disease, unspecified; E03.9 Hypothyroidism, unspecified; I35.0 Nonrheumatic aortic (valve) stenosis; G47.33 Obstructive sleep apnea (adult) (pediatric); Z79.82 Long term (current) use of aspirin; Z79.899 Other long term (current) drug therapy; Z79.51 Long term (current) use of inhaled steroids
CPT/HCPCS: 63685; 63655; 82948; 99199; A9270; C1778; C1820; J0690; J1100; J2003; J2405; J2704; J3010; J3370; J7120

== ENCOUNTER 2025-02-12 14:40 | Outpatient (CLI) | payer MEDICARE, OTHER, SELFPAY ==
[2025-02-12 15:24] LABS: Creatinine Urine 248.9 mg/dL; Total Protein Urine Random 52 mg/dL; Ur Ttl Prot Creatinine Ratio 0.21 mg/mg (0-0.20)
[2025-02-12 15:52] LABS: Albumin Level 4.4 g/dL (3.5-5.1); Anion Gap 12 mmol/L (4-12); Blood Urea Nitrogen 43 mg/dL (7-17); Calcium 9.2 mg/dL (8.4-10.2); Carbon Dioxide 20 mmol/L (22-30); Chloride 108 mmol/L (98-107); Estimated Glomerular Filt Rate 28; Glucose 151 mg/dL (65-110); Phosphorus 4.1 mg/dL (2.5-4.5); Potassium 4.1 mmol/L (3.4-5.0); Sodium 140 mmol/L (137-145)
--- OUTSIDE RECORDS SUMMARY | 2025-02-12 16:54 | XMS_ITS | Referral Summary ---
Author Organization [facility] [address] [facility] [address] Address [address] [place] [address] Care Team Providers Care Humane Agent Name Role Phone Adwoa Ordonez Primary Care Provider Encounters Date Type Department Care Team Description 11/27/2024 1:15 PM TROUBLE CLERK Office Visit [facility] [address] [facility] [address] [place] [address] Castro Lopez MD Nonrheumatic aortic valve stenosis (Primary Dx) from Last 3 Months Allergies Active Allergy Reactions Criticality Noted Date Comments Cat Dander Unknown 02/01/2019 Medications hydroCHLOROthiaz annette (HYDRODIURIL) 25 mg tablet take 1 tablet by oral route every day 0 0 7 Active Additional Information Patient not taking.Reported on 11/27/2024 losartan (COZAAR) 100 mg tablet take 1 tablet by oral route every day 0 0 7 Active Additional Information Patient not taking.Reported on 11/27/2024 piroxicam (FELDENE) 20 mg capsule take 1 capsule by oral route 3 TIMES A WEEK FOR ARTHRITIS 0 0 7 Active Additional Information Patient taking differently:20 mgoral Daily, Reported on 11/27/2024 albuterol sulfate (PROAIR RESPICLICK) 90 mcg/actuation aerosol powdr breath activated inhale 2 puff by inhalation route every 4 - 6 hours as needed 0 Inhaler 0 7 Active nystatin cream as needed 8 Active ADVAIR HFA 230-21 mcg/actuation inhaler 2 (two) times a day 8 Active cholecalciferol (VITAMIN D-3) 2000 unit capsule Take 1 capsule (2,000 Units total) by mouth daily Active tolterodine LA (DETROL LA) 4 mg 24 hr capsuleIndicatio ns:Urinary Urge Incontinence Take 1 capsule (4 mg total) by mouth daily Active montelukast (SINGULAIR) 10 mg tablet Take 1 tablet (10 mg total) by mouth nightly Active aspirin (ENTERIC COATED ASPIRIN) 81 mg enteric coated tabletIndication s: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 route before meals for 30 days. Active melatonin 1 mg/4 mL drops hs Active liothyronine (CYTOMEL) 5 mcg tablet Take 1 tablet (5 mcg total) by mouth daily Active pimecrolimus (ELIDEL) 1 % cream pimecrolimus 1 % topical cream APPLY A THIN LAYER TO THE AFFECTED AREA(S) BY TOPICAL ROUTE 2 TIMES PER DAY ; RUB IN GENTLY AND COMPLETELY 1 Active metFORMIN XR (GLUCOPHAGE XR) 500 mg 24 hr tablet half a tablet twice daily with meals 1 Active levothyroxine (SYNTHROID) 100 mcg tablet TAKE 1 TABLET BY MOUTH ONCE DAILY IN THE MORNING 1 Active timolol (TIMOPTIC) 0.5 % ophthalmic solution INSTILL 1 DROP INTO EACH EYE TWICE DAILY 1 Active cyanocobalamin (Vitamin B-12) 1,000 mcg sublingual tablet daily Active rOPINIRole (REQUIP) 0.25 mg tablet Take 1 tablet (0.25 mg total) by mouth 3 (three) times a day 1 Active QUEtiapine (SEROquel) 100 mg tablet 2 Active amLODIPine (NORVASC) 5 mg tablet Take 1 tablet (5 mg total) by mouth daily 2 Active losartan-hydroch lorothiazide (HYZAAR) 100-25 mg per tablet Take 0.5 tablets by mouth daily Active levoFLOXacin (LEVAQUIN) 500 mg tablet levofloxacin 500 mg tablet Active Active Problems Problem Noted Date Diagnosed Date Balance problem 11/24/2022 Assessment & Plan (05/09/2024 10:19 PM CDT): She has balance and gait problem of unclear etiology. The original pattern of falls that seemed to occur almost exclusively in the context of bending forward could relate to a structural spinal problem. The exact etiology is unclear but this issue seems to have improved if not resolved. She continues to have back pain for which I will defer evaluation and management to her spine surgeon and pain management. I still think this is less likely a neurodegenerative process because the falls occurred during isolated position changes (bending forward), she denied noting poor balance in other circumstances, the majority of her exam did not reveal any gross ataxia or dysmetria, she notes her balance has improved over time, and her brain MRI did not show any focal atrophy or other structural lesion, apart from a tiny right hemispheric cerebellar lacunar infarct which probably would not account for her symptoms although I cannot be certain about that. Her UPDRS is stable today compared to ~18 months ago and is notable for only trace slowness and stiffness that may be nonspecific. I counseled her and her that I do not think she has a neurodegenerative disease that explains her symptoms but that I would like to see her back again in approximately 1 year to repeat exam and gather interval history. I think she would benefit from another referral to PT once pain is better controlled. Assessment & Plan (11/24/2022 7:09 PM TROUBLE CLERK): She has balance problem of unclear etiology. The pattern of falls that seemed to occur almost exclusively in the context of bending forward is meaningful, I think. It is possible that this relates to a structural spinal problem, vs a vestibular problem, the latter of which may less likely given the lack of accompanying vertigo or other sensation. I think this is less likely a neurodegenerative process because the falls occurred during isolated position changes (bending forward), she denied noting poor balance in other circumstances, the majority of her exam did not reveal any gross ataxia or dysmetria, she notes her balance has improved over time, and her brain MRI did not show any focal atrophy or other structural lesion, apart from a tiny right hemispheric cerebellar lacunar infarct which probably would not account for her symptoms although I cannot be certain about that. I counseled her and her that I do not think she has a neurodegenerative disease that explains her symptoms but that I would like to see her back in approximately 1 year to repeat exam and gather interval history. I offered to send another referral to PT if she felt she ever needed a refresher appointment. I will discuss with her referring physician Dr. De Jesus. 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 The etiology is still not clear but may not be related to a progressive neurodegenerative illness like Parkinson disease given the lack of progression, the relatively mild exam findings, and the prominent back pain that seem central to her issue. I counseled her that I would like to follow her symptoms over more time before trying to make any confident diagnosis. Assessment & Plan (11/24/2022 7:08 PM TROUBLE CLERK): Technically she has parkinsonism stage 1 or 2 characterized by left (and possibly mild right) rigidity and bradykinesia. The etiology is not clear and may not be related to a progressive neurodegenerative illness like Parkinson disease. I counseled her that even though she has positive family history of PD in her mother, this does not really change my assessment of the likelihood of PD as the etiology of her symptoms and that I would like to follow her symptoms over more time before trying to make any confident diagnosis. Frequent nosebleeds 12/28/2021 Abnormal gait 12/28/2021 Abscess 12/28/2021 Cellulitis 12/28/2021 Persistent cough 12/28/2021 Degeneration of lumbar intervertebral disc 12/28 Depressive disorder 12/28/2021 Diarrhea 12/28/2021 Drusen of optic disc 12/28/2021 Fracture of distal phalanx of finger 12/28/2021 Intertrigo 12/28/2021 Abdominal pain 12/28/2021 Neoplasm of uncertain behavior of skin Posterior rhinorrhea 12/28/2021 Radiotherapy follow-up 12/28/2021 Spinal stenosis of lumbar region 12/28/2021 Tremor 12/28/2021 Upper respiratory infection 12/28/2021 Urinary tract infectious disease 12/28/2021 Steatohepatitis, non-alcoholic 07/16/2021 Asthma 04/20/2020 Abnormal mammogram 04/07/2020 Nonrheumatic aortic valve stenosis 10/25/2019 Lump of left breast 07/06/2019 Allergic rhinitis 02/15/2019 Obesity with body mass index 30 or greater 02/15 Obstructive sleep apnea syndrome 02/15/2019 Diabetes mellitus 03/15/2018 Dyspnea on exertion 11/19/2016 Overview (01/27/2017): Dyspnea on exertion Dyslipidemia 11/19/2016 Overview (01/27/2017): Dyslipidemia Heart valve disease 11/19/2016 Overview (01/27/2017): Valvular heart disease Abnormal electrocardiography 11/19/2016 Overview (01/27/2017): Abnormal ECG Chronic fatigue syndrome 11/19/2016 Overview (01/27/2017): Chronic fatigue Essential hypertension 11/19/2016 Overview (01/27/2017): Essential hypertension Trochanteric bursitis 02/10/2016 Chronic pain 01/22/2016 Dizziness 01/22/2016 Arthropathy of spinal facet joint 01/22/2016 Dry eyes 01/22/2016 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 01/22/2016 Heart murmur 01/22/2016 Hyperlipidemia 01/22/2016 Hypothyroidism 01/22/2016 Muscle weakness 01/22/2016 Numbness 01/22/2016 Bronchitis 01/22/2016 Steatosis of liver 01/22/2016 Tingling of skin 01/22/2016 Abnormal liver function tests 02/20/2011 Encounter for preventive health examination 05/25 Social History Tobacco Use Types Packs/Day Years Used Date Smoking Tobacco: Never Smokeless Tobacco: Never Tobacco Cessation:Counseling Given: Not Answered Alcohol Use Standard Drinks/Week Comments No 0 (1 standard drink = 0.6 oz pur e alcohol) Comments No Sex and Gender Information Value Date Recorded Sex Assigned at Not on file Legal Sex Female 12:56 PM TROUBLE CLERK Gender Identity Female 03/05/2022 12:13 PM CDT Sexual Orientation Not on file Last Filed Vital Signs Vital Sign Reading Time Taken Comments Blood Pressure 112/62 11/27/2024 1:21 PM TROUBLE CLERK Pulse 81 11/27/2024 1:21 PM TROUBLE CLERK Temperature 36.6 C (97.8 F) 08/02/2024 10:52 AM CDT Respiratory Rate - - Oxygen Saturation 97% 11/27/2024 1:21 PM TROUBLE CLERK Inhaled Oxygen Concentration - - Weight 89.9 kg (198 lb 3.2 oz) 11/27/2024 1:21 P M TROUBLE CLERK Height 154.9 cm (5' 1 ) 11/27/2024 1:21 PM TROUBLE CLERK Body Mass Index 37.45 11/27/2024 1:21 PM TROUBLE CLERK Plan of Treatment Not on file Procedures Procedure Name Priority Date/Time Associated Diagnosis Comments EGFR Routine 09/06/2024 2:12 PM TROUBLE CLERK Steatohepatitis, non-alcoholic POCT LIPID PANEL Routine 05/03/2023 2:03 PM CDT Lipid screening DIAGNOSTIC MAMMOGRAM BILATERAL W CRISTI Schedule Routine, Read Routine (OP Routine) 04/08/2020 12:13 PM CDT Abnormal mammogram from Last 3 Months or Most Recently Relevant to Health Maintenance Results * (ABNORMAL) eGFR (09/06/2024 2:12 PM TROUBLE CLERK) eGFR 39(L) >=60 mL/min/1. 73 m2 Comment: Interpretive Data Reference Interval Normal >/= 90 mL/min/1.73m2 Mildly decreased* 60 - 89 mL/min/1.73m2 Mildly to moderately decreased 45 - 59 mL/min/1.73m2 Moderately to severely decreased 30 - 44 mL/min/1.73m2 Severely decreased 15 - 29 mL/min/1.73m2 Kidney Failure < 15 mL/min/1.73m2 *Relative to young adult level Estimated glomerular filtration rate is determined by the 2020 CKD-EPI equation recommended by the National Kidney Foundation (A Unifying Approach to GFR Estimation: Recommendations of the NKF-ASK Task Force on Reassessing the Inclusion of Race in Diagnosing Kidney Disease, JASN 2020). The CKD-EPI equation should not be used for patients with unstable renal function and has not been validated in children and those over 70. Current interpretive data was last reviewed 2021. Blood 09/06/2024 2:12 PM TROUBLE CLERK 09/06/2024 2:29 PM TROUBLE CLERK us Justin Wing MD LAB BLOOD ORDERABLES Final Result [facility] Department [place] [address] * POCT lipid panel (05/03/2023 2:03 PM CDT) Cholesterol, POC 146 mg/dL HDL, POC 43 mg/dL Triglycerides, POC 128 mg/dL LDL Cholesterol POC 77 mg/dL Chol/HDL Ratio, POC 1.8 Non-HDL Cholesterol, POC 103 mg/dL Cholesterol Total, POC 146 mg/dL Capillary blood 05/03/2023 2 :03 PM CDT us Castro Lopez MD POINT OF CARE TEST ORDER SILVIO Final Result * Diagnostic Mammogram Bilateral W Cristi (04/08/2020 12:13 PM CDT) Anatomical Region Laterality Modality Breast Bilateral Mammography 04/08/2020 1:18 PM CDT Impressions 04/08/2020 1:42 PM CDT 1. Outer left breast area of sonographic abnormality corresponds to an area of benign fat necrosis, decreasing in size from the prior examination. 2. Stable benign right subareolar mass. OVERALL FINAL ASSESSMENT: BI-RADS Category 2: Benign. Annual screening mammography is recommended. Dictated by: aFheem Vaughn M.D. The radiology attending physician has personally reviewed this study, and had reviewed and/or edited this written report and agrees with it. Electronically signed by: Fernanda Stewart M.D. Narrative 04/08/2020 1:42 PM CDT EXAMINATION: BILATERAL DIGITAL DIAGNOSTIC MAMMOGRAM INCLUDING CAD AND BILATERAL DIGITAL BREAST TOMOSYNTHESIS; BILATERAL BREAST SONOGRAM HISTORY: 69-year-old woman presents for follow-up of masses in both breasts detected incidentally with ultrasound when the patient underwent workup for left breast palpable abnormality.These were given a BI-RADS 3 at an outside facility in May 2019; the patient is now presenting for 1st follow-up. COMPARISON: 05/31/2019, 05/12/2017 TECHNIQUE: Full field digital mammographic views of BOTH breasts were performed, including computer aided detection (CAD) and BILATERAL digital breast tomosynthesis (DBT). Directed ultrasound evaluation of BOTH breasts was performed. BREAST PARENCHYMAL COMPOSITION: The breasts are heterogenously dense, which may obscure small masses. MAMMOGRAM FINDINGS: There are no suspicious abnormalities in either breast. SONOGRAM FINDINGS: In the left breast at 3:00 15 cm from the nipple, there is a oval mass with circumscribed borders which measures up to 6 x 4 x 3 mm. It is predominantly hyperechoic with a hypoechoic center and has appearance suggestive of fat necrosis. It is smaller from the prior examination, where it measured up to 10 x 7 mm. In the subareolar right breast, there is a stable oval mass measuring 4 x 3 x 5 mm with no suspicious features, stable from the prior examination. Procedure Note Fernanda Stewart MD - 04/08/2020 EXAMINATION: BILATERAL DIGITAL DIAGNOSTIC MAMMOGRAM INCLUDING CAD AND BILATERAL DIGITAL BREAST TOMOSYNTHESIS; BILATERAL BREAST SONOGRAM HISTORY: 69-year-old woman presents for follow-up of masses in both breasts detected incidentally with ultrasound when the patient underwent workup for left breast palpable abnormality.These were given a BI-RADS 3 at an outside facility in May 2019; the patient is now presenting for 1st follow-up. COMPARISON: 05/31/2019, 05/12/2017 TECHNIQUE: Full field digital mammographic views of BOTH breasts were performed, including computer aided detection (CAD) and BILATERAL digital breast tomosynthesis (DBT). Directed ultrasound evaluation of BOTH breasts was performed. BREAST PARENCHYMAL COMPOSITION: The breasts are heterogenously dense, which may obscure small masses. MAMMOGRAM FINDINGS: There are no suspicious abnormalities in either breast. SONOGRAM FINDINGS: In the left breast at 3:00 15 cm from the nipple, there is a oval mass with circumscribed borders which measures up to 6 x 4 x 3 mm. It is predominantly hyperechoic with a hypoechoic center and has appearance suggestive of fat necrosis. It is smaller from the prior examination, where it measured up to 10 x 7 mm. In the subareolar right breast, there is a stable oval mass measuring 4 x 3 x 5 mm with no suspicious features, stable from the prior examination. IMPRESSION: 1. Outer left breast area of sonographic abnormality corresponds to an area of benign fat necrosis, decreasing in size from the prior examination. 2. Stable benign right subareolar mass. OVERALL FINAL ASSESSMENT: BI-RADS Category 2: Benign. Annual screening mammography is recommended. Dictated by: Faheem Vaughn M.D. The radiology attending physician has personally reviewed this study, and had reviewed and/or edited this written report and agrees with it. Electronically signed by: Fernanda Stewart M.D. Yoselin Oleary MD IMG MAMMO PROCEDURES Fi nal Result from Last 3 Months or Most Recently Relevant to Health Maintenance Insurance MEDICARE FOR LIFE MEDICARE [facility] Address: [facility] [address] [place] [address] FOR LIFE Care Teams Humane Agent Relationship Specialty Start Date End Date Adwoa Ordonez DO [address] [place] [address] PCP - General Family Medicine 11/27/24
--- OUTSIDE RECORDS SUMMARY | 2025-02-12 16:54 | XMS_ITS | Encounter Summary ---
Author Organization [facility] Address [facility] [place] [address] Care Team Providers Care Winch Stripper Name Role Phone Amisha Monique MD Primary Care Provider [phone] Castro Lopez MD Unavailable [phone] Judah Clark MD Unavailable Justin Wing MD Unavailable [phone] Encounter Details Date Type Department Care Team (Late st Contact Info) Description 09/06/2023 Prep for Procedure [place] [employer], [place] [id number] Laisha Rutledge MD [address] [facility] [address] [place], [place] [id number] Social History Tobacco Use Types Packs/Day Years Used Date Smoking Tobacco: Never Smokeless Tobacco: Never Alcohol Use Standard Drinks/Week Comments Never 0 (1 standard drink = 0.6 oz pur e alcohol) PHQ-2 Answer Date Recorded Patient Health Questionnaire-2 Score 0 07/15/2023 Comments No Sex and Gender Information Value Date Recorded Sex Assigned at Not on file Legal Sex Female 10:19 AM CDT Gender Identity Not on file Sexual Orientation Not on file documented as of this encounter Functional Status * Calculated C-SSRS Risk Score (Lifetime/Recent) Answer Date of Assessment Author Status No Risk Indicated 09/06/2023 6:45 AM Judith Araya RN Active * [place] Suicide Severity Rating Scale (Screener/Recent Self-Report) Question Answer Date of Assessment Author Status 1. Wish to be (Past 1 Month) No 09/06/2023 6:45 AM Judith Araya RN Active 2. Non-Specific Active Suicidal Thoughts (Past 1 Month) No 09/06/2023 6:45 AM Judith Araya RN Active 6. Suicidal Behavior (Lifetime) No 09/06/2023 6:45 AM Judith Araya RN Active documented as of this encounter Plan of Treatment Upcoming Encounters Date Type Department Care Team (Late st Contact Info) Description 07/30/2025 3:00 PM CDT Appointment [facility] Vascular Lab [employer], [place] [id number] Judah Clark MD [address] [facility] [place], [place] [id number] documented as of this encounter Visit Diagnoses Diagnosis Spinal stenosis of lumbar region- Primary Spinal stenosis, lumbar region, without neurogenic claudication Abnormal electrocardiography Dyslipidemia Other and unspecified hyperlipidemia Dyspnea on exertion Other dyspnea and respiratory abnormality Essential hypertension Unspecified essential hypertension Heart murmur Undiagnosed cardiac murmurs Heart valve disease Endocarditis, valve unspecified, unspecified cause Hyperlipidemia Other and unspecified hyperlipidemia Nonrheumatic aortic valve stenosis Aortic valve disorders 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 ([facility] HHS/HCC) 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 Stenosis of left subclavian artery Atherosclerosis of other specified arteries Diabetes mellitus ([facility] HHS/HCC) Type II or unspecified type diabetes mellitus without mention of complication, not stated as uncontrolled Hypothyroidism Unspecified hypothyroidism Obesity with body mass index 30 or greater Allergic rhinitis Allergic rhinitis, cause unspecified Frequent nosebleeds Posterior rhinorrhea Other diseases of nasal cavity and sinuses Drusen of optic disc Abdominal pain Abdominal pain, unspecified site Abnormal liver function tests Other abnormal blood chemistry Steatohepatitis, non-alcoholic Other chronic nonalcoholic liver disease Steatosis of liver Other chronic nonalcoholic liver disease Esophageal dysphagia Dysphagia, pharyngoesophageal phase Irregular bowel habits Other specified disorder of intestines Nausea and vomiting, unspecified vomiting type Abnormal mammogram Abnormal mammogram, unspecified Muscle weakness Muscle weakness (generalized) Fracture of distal phalanx of finger Closed fracture of distal phalanx or phalanges of hand Abnormal gait Abnormality of gait Chronic fatigue syndrome Dizziness Dizziness and giddiness documented in this encounter Care Teams Winch Stripper Relationship Specialty Start Date End Date Amisha Monique MD [address] [place] [id number] PCP - General FAMILY PRACTICE 02/04/22 Castro Lopez MD [address] [facility] [address] [place] [address] CARDIOVASCULAR DISEASE 08/23/23 Judah Clark MD [facility] [address] [place] [address] Referring Physician VASCULAR SURGERY 08/23/23 Justin Wing MD [address] [facility] [address] [place] [address] GASTROENTEROLOGY 08/23/23 documented as of this encounter
--- OUTSIDE RECORDS SUMMARY | 2025-02-12 16:54 | XMS_ITS | Clinical Summary ---
Author Organization [facility] Address [address] [place] [address] Care Team Providers Care Hydraulic Press Operator Name Role Phone Amisha Monique MD Primary Care Provider [phone] Castro Lopez MD Unavailable [phone] Judah Clark MD Unavailable Justin Wing MD Unavailable [phone] Allergies Active Allergy Reactions Criticality Noted Date Comments Cat Dander Unknown 02/01/2019 Medications albuterol sulfate HFA 108 (90 Base) MCG/ACT inhaler every 4 (four) hours. Active ADVAIR HFA 230-21 MCG/ACT inhaler INHALE 2 PUFFS BY MOUTH TWICE DAILY DIRECTED 2 Active UNITHROID 88 MCG tablet Take 1 tablet (88 mcg total) by mouth every morning. 2 Active liothyronine (CYTOMEL) 5 MCG Tab Take 1 tablet (5 mcg total) by mouth 2 (two) times a day. Active melatonin 1 MG/4ML oral liquid nightly at bedtime. Active montelukast (SINGULAIR) 10 MG tablet Take 1 tablet (10 mg total) by mouth nightly at bedtime. Active pimecrolimus (ELIDEL) 1 % cream APPLY THIN LAYER TOPICALLY TO THE AFFECTED AREA TWICE DAILY. RUB IN GENTLY AND COMPLETELY USE NEEDED 1 Active piroxicam (FELDENE) 20 MG capsule Take 1 capsule (20 mg total) by mouth daily. 2 Active QUEtiapine (SEROQUEL) 25 MG tablet Take 1 tablet (25 mg total) by mouth nightly at bedtime. 1 Active rOPINIRole (REQUIP) 0.25 MG tablet Take 2 tablets (0.5 mg total) by mouth nightly. 1 Active timolol (TIMOPTIC) 0.5 % ophthalmic solution timolol maleate 0.5 % eye drops INSTILL 1 DROP INTO BOTH EYES TWICE DAILY 1 Active tolterodine LA (DETROL LA) 4 MG 24 hr capsule Detrol LA 4 mg capsule,extended release Active metFORMIN ER (GLUCOPHAGE-XR ) 500 MG 24 hr tablet Take 1 tablet (500 mg total) by mouth 2 (two) times a day. Active losartan-hydro CHLOROthiazide (HYZAAR) 100-25 MG tablet Take 0.5 tablets by mouth daily. Active rosuvastatin (CRESTOR) 20 MG tablet Take 1 tablet (20 mg total) by mouth see administration instructions. Morning Tuesday and Tuesday Active amLODIPine (NORVASC) 5 MG tablet Take 1 tablet (5 mg total) by mouth daily. 2 Active aspirin EC (ECOTRIN) 81 MG tablet Take 1 tablet (81 mg total) by mouth daily. Active Active Problems Problem Noted Date Diagnosed Date Positive colorectal cancer screening using Colog uard test 05/03/2024 Altered bowel habits 05/03/2024 Dysphagia, unspecified type 05/03/2024 Chronic constipation 10/26/2023 Hepatic steatosis 10/26/2023 Lumbar spinal stenosis 10/04/2023 Bilateral carotid artery stenosis 08/25/2023 Osteoarthritis of left knee 07/13/2023 Chronic kidney disease 06/22/2023 Vitamin D deficiency 06/14/2023 Esophageal dysphagia 06/01/2023 Overview (06/01/2023): Added automatically from request for surgery [id number] Nausea and vomiting, unspecified vomiting type 0 06/01/2023 Overview (06/01/2023): Added automatically from request for surgery [id number] Irregular bowel habits 06/01/2023 Overview (06/01/2023): Added automatically from request for surgery [id number] Pain in joint of left shoulder 04/08/2023 Chronic diarrhea 03/29/2023 High serum creatinine 01/12/2023 Arthralgia of left knee 12/30/2022 Balance problems 11/24/2022 Overview (08/25/2023): Last Assessment & Plan: She has balance problem of unclear etiology. [...] her referring physician Dr. De Jesus. Parkinsonism ([facility]) 11/24/2022 Overview (08/25/2023): Last Assessment & Plan: Technically she has parkinsonism stage 1 or [...] before trying to make any confident diagnosis. Joint replaced by other means 07/29/2022 Stenosis of left subclavian artery 07/29/2022 Chronic cough 07/27/2022 Rheumatoid arthritis, unspecified ([facility]/ [facility]) 05/31/2022 Abdominal pain 12/28/2021 Abnormal gait 12/28/2021 Degeneration of lumbar intervertebral disc 12/28 Depressive disorder 12/28/2021 Drusen of optic disc 12/28/2021 Fracture of distal phalanx of finger 12/28/2021 Frequent nosebleeds 12/28/2021 Intertrigo 12/28/2021 Neoplasm of uncertain behavior of skin Posterior rhinorrhea 12/28/2021 Spinal stenosis of lumbar region 12/28/2021 Tremor 12/28/2021 Steatohepatitis, non-alcoholic 07/16/2021 Asthma ([facility]) 04/20/2020 Abnormal mammogram 04/07/2020 Nonrheumatic aortic valve stenosis 10/25/2019 Lump of left breast 07/06/2019 Allergic rhinitis 02/15/2019 Obesity with body mass index 30 or greater 02/15 Obstructive sleep apnea syndrome 02/15/2019 Diabetes mellitus ([facility]) 03/15/2018 Abnormal electrocardiography 11/19/2016 Overview (07/27/2022): Abnormal ECG Chronic fatigue syndrome 11/19/2016 Overview (07/27/2022): Chronic fatigue Dyslipidemia 11/19/2016 Overview (07/27/2022): Dyslipidemia Dyspnea on exertion 11/19/2016 Overview (07/27/2022): Dyspnea on exertion Essential hypertension 11/19/2016 Overview (07/27/2022): Essential hypertension Heart valve disease 11/19/2016 Overview (07/27/2022): Valvular heart disease Arthropathy of spinal facet joint 01/22/2016 Chronic pain 01/22/2016 Dizziness 01/22/2016 Heart murmur 01/22/2016 Hyperlipidemia 01/22/2016 Hypothyroidism 01/22/2016 Muscle weakness 01/22/2016 Numbness 01/22/2016 Steatosis of liver 01/22/2016 Tingling of skin 01/22/2016 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 ([facility]) 01/22/2016 Abnormal liver function tests 02/20/2011 Immunizations Immunization Administration Dates Next Due Influenza (Generic) 07/04/2013 Influenza Adult (Generic) 08/13/2020,01/2019,07/15/2018,2016,07/29/2016,07/25/2016 MMR (MMRII) 03/23/2019 [email or web address] COVID-19 (ORIGINAL FORMULATION, PURPLE CAP) mRNA, LNP-S, PF, 30 MCG/0.3 ML DOSE 02/17/2022 Pneumococcal (Pneumovax 23) 01/04/2017, 5 Pneumococcal (Prevnar 13) 07/26/2018 Shingrix 09/07/2021,07/08/2021 Tdap (Generic) 10/09/2016 Family History Relation Status Comments Father Mother Social History Tobacco Use Types Packs/Day Years Used Date Smoking Tobacco: Never Smokeless Tobacco: Never Tobacco Cessation:Counseling Given: No Alcohol Use Standard Drinks/Week Comments Never 0 (1 standard drink = 0.6 oz pur e alcohol) PHQ-2 Answer Date Recorded Patient Health Questionnaire-2 Score 0 05/03/2024 Comments No Sex and Gender Information Value Date Recorded Sex Assigned at Not on file Legal Sex Female 10:19 AM CDT Gender Identity Not on file Sexual Orientation Not on file Last Filed Vital Signs Vital Sign Reading Time Taken Comments Blood Pressure 114/72 05/21/2024 9:05 AM CDT Pulse 66 05/21/2024 8:35 AM CDT Temperature 37.3 C (99.2 F) 05/21/2024 8:35 AM CDT Respiratory Rate 16 05/21/2024 8:35 AM CDT Oxygen Saturation 98% 05/21/2024 9:05 AM CDT Inhaled Oxygen Concentration - - Weight 88.5 kg (195 lb) 05/08/2024 2:34 PM CDT Height 157.5 cm (5' 2 ) 05/08/2024 2:34 PM CDT Body Mass Index 35.67 05/08/2024 2:34 PM CDT Plan of Treatment Upcoming Encounters Date Type Department Care Team (Late st Contact Info) Description 07/30/2025 3:00 PM CDT Appointment [facility] [address] [place], [place] [id number] Judah Clark MD [address] [place], [place] [id number] Health Maintenance Due Date Last Done Comments ASCVD LDL 1950 ASCVD Statin 1950 Kidney Health Evaluation 1950 Diabetes: Retinopathy Eye Exam 1969 Hepatitis C 1969 RSV Immunization or 60+ Years (1 - Risk 60-74 years 1-dose series) 2011 Annual Medicare Wellness Visit 2016 Dexa Scan (General) 2016 Mammogram Screening 04/08/2022 04/08/2020 Lipid Panel 05/03/2024 05/03/2023 COVID-19 Vaccine ( season) 2024 02/17/2022, 02/17/2022, 08/03/2021, Additional history exists Hemoglobin A1C 08/08/2024 02/07/2024, 07/28/2022 PHQ-2 (Physician [place]) 10/24/2024 05/03/2024 DTaP, Tdap and Td Vaccines (2 - Td or Tdap) 10/09/2026 10/09/2016 Colorectal Cancer Screening Colonoscopy (10 Years) 05/21/2034 05/21/2024, 05/21/2024 Pneumococcal Vaccine: 50+ Years Completed 07/26/2018, 01/04/2017, 09/10/2015 Zoster Vaccines Completed 09/07/2021, 07/08/2021 Colorectal Cancer Screening FIT-DNA (3 Years) Discontinued 03/17/2024, 03/17/2024 Meningococcal B Vaccine Aged Out No l onger eligible based on patient's age to complete this topic Meningococcal Vaccine Aged Out No deedee kait eligible based on patient's age to complete this topic RSV Immunizations Under 20 Months Aged Out No longer eligible based on patient's age to complete this topic Goals Goal Patient Goal Type Associated Problems Recent Progress Patient-Stated? Author Family - family caregiver with be involved in care transitions and discharge planning Lifestyle No Igor Hand RN Medical Devices Implanted Type Area Tanning Consultant Device Identifier Shelf Expiration Date Model / Serial / Lot Orthofix 70mm Rods Implanted:Qty: 2 on 10/04/2023 by Laisha Rutledge MD at [facility] Juan N/A: Spine Lumbar NEW AGE MEDICAL 52-6070 / / Orthofix Set Screw Implanted:Qty: 6 on 10/04/2023 by Laisha Rutledge MD at [facility] Screw N/A: Spine Lumbar NEW AGE MEDICAL 36-2000 / / Orthofix Top Loading Body Implanted:Qty: 6 on 10/04/2023 by Laisha Rutledge MD at [facility] Screw N/A: Spine Lumbar NEW AGE MEDICAL 36-2101 / / Orthofix 6.5x40mm Screw Implanted:Qty: 6 on 10/04/2023 by Laisha Rutledge MD at [facility] Screw N/A: Spine Lumbar NEW [facility] 44-5640 / / Procedures Procedure Name Priority Date/Time Associated Diagnosis Comments COLONOSCOPY Routine 05/21/2024 8:44 AM CDT COLOGUARD (SCAN ORDER) Routine 03/17/2024 HEMOGLOBIN, GLYCOSYLATED Routine 02/07/2024 from Last 3 Months or Most Recently Relevant to Health Maintenance Results * COLOGUARD (03/17/2024) COLOGUARD POSITIVE [facility] ONBASE STOOL 03/17/2024 [facility] Scanned SCANNING Final Resu lt [facility] ONBASE * HEMOGLOBIN, GLYCOSYLATED (02/07/2024) HGB A1C 7.0 % 02/07/2024 us Default History Genericprovider LABORATORY Final Result from Last 3 Months or Most Recently Relevant to Health Maintenance Insurance MEDICARE [facility] [employer] Care Teams Hydraulic Press Operator Relationship Specialty Start Date End Date Amisha Monique MD [address] [place] [id number] PCP - General FAMILY PRACTICE 02/04/22 Castro Lopez MD [address] [facility] [address] [place] [address] CARDIOVASCULAR DISEASE 08/23/23 Judah Clark MD Three [address] [address] Referring Physician VASCULAR SURGERY 08/23/23 Justin Wing MD [address] [facility] [address] [place] [address] GASTROENTEROLOGY 08/23/23
--- OUTSIDE RECORDS SUMMARY | 2025-02-12 16:55 | XMS_ITS | Continuity of Care Document ---
Author Name [facility] Organization [facility] Care Team Providers Care Kier Drier Name Role Phone [facility] Unavailable Unavailable Medications Combined list of outpatient medications from Department of Defense and Veterans Affairs facilities.Medications provided include 1) outpatient medications from the last 15 months, and 2) patient-reported medications. Medication Details Route Status Patient Instructions Prescription Expires Prescription Number Last Dispense Date Ordering Provider Order Date Order Qty Source AMLODIPINE BESYLATE (AMLODIPINE BESYLATE), 5 MG, TABLET, ORAL, EXELAN PHARMACE, 1000 ea. BOTTLE Active [id number] 4 2023 90 Pharmac y Data Transac tion Service Facilit y AMLODIPINE BESYLATE (AMLODIPINE BESYLATE), 5 MG, TABLET, ORAL, EXELAN PHARMACE, 1000 ea. BOTTLE Active [id number] 4 2023 90 Pharmac y Data Transac tion Service Facilit y DOXYCYCLINE HYCLATE (doxycyclin e hyclate), 100 MG, TABLET, ORAL, Reverbeo, 50 ea. BOTTLE Active [id number] 4 2023 14 Pharmac y Data Transac tion Service Facilit y LOSARTAN-HY DROCHLOROTH IAZIDE (losartan potassium/h ydrochlorot hiazide), 100MG-25MG, TABLET, ORAL, [employer] HEALTHCAR, 1000 ea. BOTTLE Active [id number] 4 2023 90 Pharmac y Data Transac tion Service Facilit y PEG-3350 (SODIUM CHLORIDE/NA HCO3/KCL/PE G), 420G, SOLN RECON, ORAL, AFFORDABLE PHAR, 4000 ml BOTTLE Active [id number] 4 2023 4000 Pharmac y Data Transac tion Service Facilit y PIROXICAM (PIROXICAM) , 20 MG, CAPSULE, ORAL, AVKARE, 500 ea. BOTTLE Active [id number] 4 2023 90 Pharmac y Data Transac tion Service Facilit y ROPINIROLE HCL (ROPINIROLE HCL), 0.25 MG, TABLET, ORAL, [email or web address] PHARMA, 100 ea. BOTTLE Cancele d [id number] : 2023 0 Pharmac y Data Transac tion Service Facilit y ROPINIROLE HCL (ropinirole HCl), 0.25 MG, TABLET, ORAL, MARLEX PHARM., 100 ea. BOTTLE Cancele d [id number] : 2023 0 Pharmac y Data Transac tion Service Facilit y ROPINIROLE HCL (ropinirole HCl), 0.25 MG, TABLET, ORAL, MARLEX PHARM., 100 ea. BOTTLE Active [id number] 4 2023 270 Pharmac y Data Transac tion Service Facilit y ROPINIROLE HCL (ropinirole HCl), 0.5 MG, TABLET, ORAL, MARLEX PHARM., 100 ea. BOTTLE Cancele d [id number] : 2023 0 Pharmac y Data Transac tion Service Facilit y ROSUVASTATI N CALCIUM (rosuvastat in calcium), 20 MG, TABLET, ORAL, [facility], 90 ea. BOTTLE Active [id number] 4 2023 90 Pharmac y Data Transac tion Service Facilit y TIMOLOL MALEATE (TIMOLOL MALEATE), 0.5 %, DROPS, OPHTHALMIC, RISING PHARM, 15 ml DROP BTL Cancele d [id number] : 2023 0 Pharmac y Data Transac tion Service Facilit y TIMOLOL MALEATE (TIMOLOL MALEATE), 0.5%, DROPS, OPHTHALMIC, ADLER PHARM, 15 ml DROP BTL Active [id number] 02/01/20 2 4 2023 15 Pharmac y Data Transac tion Service Facilit y Immunizations Combined list of available immunizations from the Department of Defense and Veterans Affairs facilities. Immunization Series Date Given Administered By Site Reaction Lot Number CVX Code Drug Patrol Police Lieutenant Status Comments Source COVID-19, mRNA, LNP-S, PF, 30 mcg/0.3 mL dose, emily-sucrose 2021 [facility], () Not Given COVID-19, mRNA, LNP-S, PF, 30 mcg/0.3 mL dose, emily-sucr ose DoD zoster recombinant 2020 [facility], () Not Given zoster recombina nt DoD COVID-19, mRNA, LNP-S, PF, 30 mcg/0.3 mL dose 2020 [facility], [place] (PFR) Not Given COVID-19, mRNA, LNP-S, PF, 30 mcg/0.3 mL dose DoD zoster recombinant 2020 [facility], () Not Given zoster recombina nt DoD influenza, high-dose, quadrivalent 2019 [facility], () Not Given influenza , high-dose , quadrival ent DoD Social History Combined list of available smoking, tobacco, and other social history from Department of Defense and Veterans Affairs facilities. Social History Type Response Date Comment [facility] e This section is an empty social history section. DoD
--- OUTSIDE RECORDS SUMMARY | 2025-02-12 16:55 | XMS_ITS | Clinical Summary ---
Author Organization [facility] Address [address] [place] [address] Care Team Providers Care Foundry Superintendant Name Role Phone Amisha Monique MD Primary Care Provider [phone] Source Comments [facility] [employer] [facility],non-owned Affiliates and Associated Physician Practices is amultiple site organization consisting of ambulatory clinics and hospital sitesin [place], [place], [place] and [place]. This disclosure is being madepursuant to the Care Everywhere program and may not contain all information available regarding this patient. Last updated 18.[facility] Medications * Be aware that medications may not be up to date on this document. Alwaysverify current medications with the patient. fluticasone-salm eterol hfa (Advair HFA) 230-21 MCG/ACT 04/18/2018 Acti ve Albuterol Sulfate 108 (90 Base) MCG/ACT 90 mcg 11/19/2016 Activ e Cholecalciferol 2000 UNITS Take 2,000 Units by mouth once daily Active DULoxetine (CYMBALTA) 30 MG capsule 05/24/2018 Active DULoxetine (CYMBALTA) 60 MG capsule 04/14/2018 Active hydroCHLOROthiaz annette (HYDRODIURIL) 25 MG tablet 07/10/2018 Active levothyroxine (SYNTHROID) 112 MCG tablet 06/19/2018 Active losartan (COZAAR) 100 MG tablet 05/30/2018 Active piroxicam (FELDENE) 20 MG capsule 20 mg 11/19/2016 Active QUEtiapine (SEROQUEL) 25 MG tablet 06/22/2018 Active simvastatin (ZOCOR) 20 MG tablet 04/18/2018 Active CHOLESTYRAMINE PO Active FLUTICASONE PROPIONATE, NASAL, NA Active Active Problems No known active problems Family History Medical History Relation Name Comments Arthritis - Osteo Father Asthma Father COPD - Chronic Obstructive Pulmonary Disease Father CVA Father Cancer - Other Father Diabetes - Type 2 Father Hearing Loss - Unspecified Father Other - Cardiac Father Heart Diseas e Early Maternal Grandmother Arthritis - Osteo Mother Diabetes - Type 2 Mother Other - Cardiac Mother Heart Diseas e Early Paternal Grandmother Relation Name Status Comments Father Maternal Grandfather Maternal Grandmother Mother Paternal Grandfather Paternal Grandmother Social History Tobacco Use Types Packs/Day Years Used Date Smoking Tobacco: Never Smokeless Tobacco: Never Tobacco Cessation:Counseling Given: No Alcohol Use Standard Drinks/Week Comments No 0 (1 standard drink = 0.6 oz pur e alcohol) Comments No Sex and Gender Information Value Date Recorded Sex Assigned at Not on file Legal Sex Female 6:29 AM MAINTENANCE TECH Gender Identity Not on file Sexual Orientation Not on file Last Filed Vital Signs Vital Sign Reading Time Taken Comments Blood Pressure 132/77 09/08/2022 11:59 AM MAINTENANCE TECH 116/72 right arm Pulse 80 09/08/2022 11:59 AM MAINTENANCE TECH Temperature 36.3 C (97.3 F) 09/08/2022 11:59 AM MAINTENANCE TECH Respiratory Rate - - Oxygen Saturation 98% 09/08/2022 11: 59 AM MAINTENANCE TECH Inhaled Oxygen Concentration - - Weight 85.7 kg (189 lb) 09/08/2022 11:5 9 AM MAINTENANCE TECH Height 160 cm (5' 3 ) 09/08/2022 11:59 AM MAINTENANCE TECH Body Mass Index 33.48 09/08/2022 11:59 AM MAINTENANCE TECH Plan of Treatment Health Maintenance Due Date Last Done Comments BONE DENSITY TESTING 1950 COLOGUARD (AGES 45-75) - COLON CA SCREENING 1950 COLON MONITORING 1950 COLONOSCOPY - COLON CA SCREENING 1950 CT COLONOGRAPHY - COLON CA SCREENING 1950 Colorectal Cancer Screening 1950 FIT - COLON CA SCREENING 1950 FLEX SIG - COLON CA SCREENING 1950 MAMMOGRAM 1950 MEDICARE AWV 12 MONTHS 1950 HEPATITIS C SCREENING 11/01/1969 DTAP/TDAP/TD VACCINES (1 - Tdap) 1970 PNEUMOCOCCAL VACCINE 50+ (1 of 1 - PCV) 2001 ZOSTER VACCINE (1 of 2) 2001 SCREENING FOR DIABETES 09/08/2022 COVID-19 VACCINE (2 - season) 2024 02/17/2022 DEPRESSION SCREENING 10/24/2024 INFLUENZA VACCINE (Season Ended) 2025 07/20/2022, 08/13/2020, 07/27/2019, Additional history exists Respiratory Syncytial Virus (RSV) Vaccine Pt: or over 60 yrs (1 - 1-dose 75+ series) 2026 HEPATITIS B VACCINE Aged Out No longe r eligible based on patient's age to complete this topic HIB VACCINE Aged Out No longer eligi ble based on patient's age to complete this topic HPV VACCINE Aged Out No longer eligi ble based on patient's age to complete this topic MENINGOCOCCAL (Group B) VACCINE SHARED DECISION-MAKING Aged Out No longer eligible based on patient's age to complete this topic MENINGOCOCCAL GROUPS A/C/Y/W VACCINE Aged Out No longer eligible based on patient's age to complete this topic Insurance MEDICARE [facility] [place] [facility] MEDICARE [facility] [place] [facility] Care Teams Foundry Superintendant Relationship Specialty Start Date End Date Amisha Monique MD [address] [place] [address] JUSTIN Mark [phone] PCP - General 04/14/18
--- OUTSIDE RECORDS SUMMARY | 2025-02-12 16:55 | XMS_ITS | Encounter Summary ---
Author Organization [facility] Address [address] [place] [address] Care Team Providers Care Cuprous Chloride Helper Name Role Phone Amisha Monique MD Primary Care Provider + Rohan Ordonez PNP Primary Care Provider [phone] Elaine Parker PNP Primary Care Provider [phone] Adwoa Ordonez DO Primary Care Provider Encounter Details Date Type Department Care Team (Late st Contact Info) Description 11/26/2016 Orders Only [facility] Provider, MD Maryam [address] [place] [id number] Social History Tobacco Use Types Packs/Day Years Used Date Smoking Tobacco: Never Assessed Comments Unknown Sex and Gender Information Value Date Recorded Sex Assigned at Not on file Legal Sex Female 12:56 PM SLUNK SKIN CURER Gender Identity Female 03/05/2022 12:13 PM CDT Sexual Orientation Not on file documented as of this encounter Plan of Treatment Not on file documented as of this encounter Procedures Procedure Name Priority Date/Time Associated Diagnosis Comments CARDIOLOGY REPORT 11/26/2016 CARDIOLOGY REPORT 11/26/2016 documented in this encounter Results * CARDIOLOGY REPORT (11/26/2016) Anatomical Region Laterality Modality Other Narrative 11/26/2016 Ordered by an unspecified provider. Historical Provider [facility] TR[facility]IRS[facility] Final Result * CARDIOLOGY REPORT (11/26/2016) Anatomical Region Laterality Modality Other Narrative 11/26/2016 Ordered by an unspecified provider. us Historical Provider [facility] TRINA HIRSCH Final Result documented in this encounter Visit Diagnoses Not on filedocumented in this encounter Care Teams Cuprous Chloride Helper Relationship Specialty Start Date End Date Amisha Monique MD PCP - General 11/19/16 08/28/24 Rohan Ordonez NP [address] [place] [address] PCP - General Neurology 08/29/24 11/13/24 Elaine Parker NP [address] [address] PCP - General Nurse Practitioner 11/23/24 11/26/24 Adwoa Ordonez DO [address] [place] [address] PCP - General Family Medicine 11/27/24 documented as of this encounter
--- OUTSIDE RECORDS SUMMARY | 2025-02-12 16:55 | XMS_ITS | Continuity of Care Document ---
Author Organization [facility] Address [address] [place] [address] [address] [place] [address] Phone Care Team Providers Care Third Loader Name Role Phone Abebe Blackman Unavailable Unavailable Procedures Procedure Date Neuromuscular Re-Ed Therapeutic Exercise Hot or Cold Pack Neuromuscular Re-Ed Therapeutic Activities Therapeutic Exercise Hot or Cold Pack Therapeutic Activities Neuromuscular Re-Ed Therapeutic Exercise Hot or Cold Pack Therapeutic Exercise Neuromuscular Re-Ed Hot or Cold Pack Therapeutic Activities Neuromuscular Re-Ed Therapeutic Exercise Hot or Cold Pack Neuromuscular Re-Ed Therapeutic Exercise Hot or Cold Pack Neuromuscular Re-Ed Hot or Cold Pack Therapeutic Exercise Hot or Cold Pack Therapeutic Exercise Neuromuscular Re-Ed Neuromuscular Re-Ed Therapeutic Exercise PT Evaluation Moderate Complexity Advance Directives Directive Yes / No Effective Date File Name No Information Encounters Encounter Description Practice Location Reason(s) For Visit Diagnoses Date Provider Providers Copied on Encounter [facility], [address] [place], [place] [address] [address], [place], [place], [id number], tel:[phone] [place] No Information 1 Muleonelal Abebe. [address] [place] [address], [address], [place], [facility], . tel: [phone] Referring Provider: Matthias [address], [place], [address]. tel:[phone] [facility] [address] [place] [address] [address], [place], [place], [id number], tel:[phone] [place] No Information 1 Rosasehl Abebe. [address] [place] [address], [address], [place], [facility], . tel: [phone] Referring Provider: Matthias [address], [place], [address]. tel:[phone] [address], [place], [place], [id number], tel:[phone] [place] No Information 1 Feil Abebe. [address] [place] [address], [address], [place], [facility], [place]. tel: [phone] Referring Provider: Matthias [address], [place], [address]. tel:[phone] [facility] [address] [place] [address] [address], [place], [place], [id number], tel:[phone] [place] No Information 1 Feil Abebe. [address] [place] [address], [address], [place], [facility], . tel: [phone] Referring Provider: Matthias [address], [place], [address]. tel:[phone] [place] [address], [id number], tel:[phone] [place] No Information Jul-0 1 Muehl Abebe. [address] [place] [address], [address], [facility], . tel: [phone] Referring Provider: Matthias [address], [place], [address]. tel:[phone], [id number], tel:[phone] [place] No Information Jul-0 1 Muehl Abebe. [address] [place] [address], [address], [facility], . tel: [phone] Referring Provider: Matthias [address], [place], [address]. tel:[phone] [place] [address], [id number], tel:[phone] [place] No Information Jul-0 1 Muehl Abebe. [address] [place] [address], [address], [facility], . tel: [phone] Referring Provider: Matthias [address], [place], [address]. tel:[phone], [id number], tel:[phone] [place] No Information Jun-2 1 Muehl Abebe. [address] [place] [address], [address], [facility], . tel: [phone] Referring Provider: Matthias [address], [place], [address]. tel:[phone] [place] [address], [id number], [place] tel:[phone] [place] No Information 1 Monalisa Lomas. [address] [facility], [address], [place], [address], [place]. tel: [phone] Referring Provider: Castro Castellanos, Mat[address], [place], [address]. tel:[phone] Family History Family Member Type Diagnosis Age At Onset No Information Payers Payer name Insurance type Covered alliance party ID Authoriza ticole(s) Medicare [place] MB [id number] For Life Medicare Se condary Only [place] [id number] Social History Type Description Quantity Date Captured Comments Sex Female Smoking Status No Information Chief Complaint And Reason For Visit No Information Reason For Referral Reason For Referral No Information History Of Present Illness Encounter Date Complaint History Of Prese nt Illness No Information Functional Status Date Functional Assessmen t No Information Instructions Date Instruction Additional Infor mation Prescribed activity/exercise edu cation Related to Overweight Dietary needs education Related to Overweight Assessments Type Assessment Date No Information Patient Care Teams Name Effective Dates (start - stop) Status Members No Information
--- OUTSIDE RECORDS SUMMARY | 2025-02-12 16:55 | XMS_ITS | Encounter Summary ---
Author Organization [facility] Address [address] [facility] [address] [place] [address] Care Team Providers Care Manager Digital Ad Operations Name Role Phone Amisha Monique MD Primary Care Provider + Rohan Ordonez TERMINAL MAKE UP OPERATOR Primary Care Provider [phone] Elaine Parker TERMINAL MAKE UP OPERATOR Primary Care Provider Adwoa Ordonez DO Primary Care Provider Encounter Details Date Type Department Care Team (Late st Contact Info) Description 11/19/2016 Orders Only [facility] Provider, MD Maryam [address] [place] [address] Social History Tobacco Use Types Packs/Day Years Used Date Smoking Tobacco: Never Assessed Comments Unknown Sex and Gender Information Value Date Recorded Sex Assigned at Not on file Legal Sex Female 12:56 PM EVP STRATEGY Gender Identity Female 03/05/2022 12:13 PM CDT Sexual Orientation Not on file documented as of this encounter Plan of Treatment Not on file documented as of this encounter Procedures Procedure Name Priority Date/Time Associated Diagnosis Comments CARDIOLOGY REPORT 11/19/2016 documented in this encounter Results * CARDIOLOGY REPORT (11/19/2016) Anatomical Region Laterality Modality Other Narrative 11/19/2016 Ordered by an unspecified provider. Historical Provider [facility] TRINA HIRSCH Final Result documented in this encounter Visit Diagnoses Not on filedocumented in this encounter Care Teams Manager Digital Ad Operations Relationship Specialty Start Date End Date Amisha Monique MD PCP - General 11/19/16 08/28/24 Rohan Ordonez NP [address] [place] [address] PCP - General Neurology 08/29/24 11/13/24 Elaine Parker NP [address] [place] [address] PCP - General Nurse Practitioner 11/23/24 11/26/24 Adwoa Ordonez DO [address] [place] [address] PCP - General Family Medicine 11/27/24 documented as of this encounter
--- OUTSIDE RECORDS SUMMARY | 2025-02-12 16:55 | XMS_ITS | Encounter Summary ---
Author Organization [facility] Address [address] [facility] [address] [place] [address] Care Team Providers Care Literature Teacher Name Role Phone Amisha Monique MD Primary Care Provider + Rohan Ordonez TRACTOR OPERATOR Primary Care Provider [phone] Elaine Parker TRACTOR OPERATOR Primary Care Provider Adwoa Ordonez DO Primary Care Provider Encounter Details Date Type Department Care Team (Late st Contact Info) Description 10/09/2007 Orders Only [facility] Provider, MD Maryam [address] [place] [address] Social History Tobacco Use Types Packs/Day Years Used Date Smoking Tobacco: Never Assessed Comments Unknown Sex and Gender Information Value Date Recorded Sex Assigned at Not on file Legal Sex Female 12:56 PM ALUMNAE SECRETARY Gender Identity Female 03/05/2022 12:13 PM CDT Sexual Orientation Not on file documented as of this encounter Plan of Treatment Not on file documented as of this encounter Procedures Procedure Name Priority Date/Time Associated Diagnosis Comments CARDIOLOGY REPORT 10/09/2007 documented in this encounter Results * CARDIOLOGY REPORT (10/09/2007) Anatomical Region Laterality Modality Other Narrative 10/09/2007 Ordered by an unspecified provider. Historical Provider [facility] TRINA HIRSCH Final Result documented in this encounter Visit Diagnoses Not on filedocumented in this encounter Care Teams Literature Teacher Relationship Specialty Start Date End Date Amisha Monique MD PCP - General 11/19/16 08/28/24 Rohan Ordonez NP [address] [place] [address] PCP - General Neurology 08/29/24 11/13/24 Elaine Parker NP [address] [place] [address] PCP - General Nurse Practitioner 11/23/24 11/26/24 Adwoa Ordonez DO [address] [place] [address] PCP - General Family Medicine 11/27/24 documented as of this encounter
--- OUTSIDE RECORDS SUMMARY | 2025-02-12 16:55 | XMS_ITS | Encounter Summary ---
Author Organization [facility] Address [address] [facility] [place] [address] Care Team Providers Care Wide Piece Goods Inspector Name Role Phone Amisha Monique MD Primary Care Provider [phone] Encounter Details Date Type Department Care Team (Late st Contact Info) Description 10/26/2022 Telephone [facility] SCHEDULING [address] [place] [address] Adriel Schwab MD [address] [place] [address] Social History Tobacco Use Types Packs/Day Years Used Date Smoking Tobacco: Never Smokeless Tobacco: Never Alcohol Use Standard Drinks/Week Comments No 0 (1 standard drink = 0.6 oz pur e alcohol) Comments No Sex and Gender Information Value Date Recorded Sex Assigned at Not on file Legal Sex Female 6:29 AM SNOW GROOMER Gender Identity Not on file Sexual Orientation Not on file documented as of this encounter Miscellaneous Notes * Telephone Encounter - Mikael Marroquin - 10/26/2022 11:39 AM CST Pt is upset over her bumped appt. Would like a sooner appt. Cannot come at 8 am because she watchesher grandson. Please contact patient. [phone]. GROOMER documented in this encounter Plan of Treatment Not on file documented as of this encounter Visit Diagnoses Not on filedocumented in this encounter Care Teams Wide Piece Goods Inspector Relationship Specialty Start Date End Date Amisha Monique MD [address] [place] [id number] PCP - General 04/14/18 documented as of this encounter
--- OUTSIDE RECORDS SUMMARY | 2025-02-12 16:55 | XMS_ITS | Clinical Summary ---
Author Organization [facility] [address] Address [address] [place] [address] Care Team Providers Care Rail Car Loader Name Role Phone Adwoa Ordonez Primary Care Provider Allergies Active Allergy Reactions Criticality Noted Date [...] controlled. Assessment & Plan (11/24/2022 7:09 PM CASINO PORTER): She has balance problem of unclear etiology. [...] diagnosis. Assessment & Plan (11/24/2022 7:08 PM CASINO PORTER): Technically she has parkinsonism stage 1 or [...] 02/20/2011 Encounter for preventive health examination 05/25 Encounters Date Type Department Care Team Description 11/27/2024 1:15 PM CASINO PORTER Office Visit [facility] Cardiology [address] [place] [address] Castro Lopez MD Nonrheumatic aortic valve stenosis (Primary Dx) from Last 3 Months Surgical History Surgery Date Site/Laterality Comments TONSILLECTOMY 10/24/1955 - 10/23/1956 HEART SURGERY 10/24/1957 - 10/23/1958 Heart cath OOPHERECTOMY 10/24/1977 - 10/23/1978 WRIST FRACTURE SURGERY 10/24/2003 - 10/23/2004 Left pins used NASAL SEPTUM SURGERY 10/24/2006 - 10/23/2007 CHOLECYSTECTOMY 10/24/2006 - 10/23/2007 ABLATION SAPHENOUS VEIN W/ RFA COLONOSCOPY CATARACT EXTRACTION REPLACEMENT TOTAL KNEE TOTAL ABDOMINAL HYSTERECTOMY W/ BILATERAL SALPINGOOPHORECTOMY HYSTERECTOMY 10/24/1988 - 10/23/1989 KNEE SURGERY 10/24/2016 - 10/23/2017 Right Medical History Medical History Date Comments 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 Arthritis Dry eyes Fatty liver disease, nonalcoholic Hypothyroidism High cholesterol Hypertension Eczema Heart murmur Broken bones bilateral wrist left pinned/ right casted Type 2 diabetes mellitus (HCC) Aortic stenosis Family History Medical History Relation Name Comments Lung cancer Father Augustine Parkinsonism Father Augustine Parkinson's dis ease; Stroke Father Augustine Parkinsonism Mother Keren Stroke Mother Keren Stroke; Breast cancer Mother's Sister Breast cancer Paternal Grandmother Relation Name Status Comments Father Augustine (Age 89) Mother Keren (Age 88) Mother's Sister Paternal Grandmother Sister 1 Ev Alive Sister 2 Sola Alive Social History Tobacco Use Types Packs/Day Years Used Date Smoking Tobacco: Never Smokeless Tobacco: Never Tobacco Cessation:Counseling Given: Not Answered Alcohol Use Standard Drinks/Week Comments No 0 (1 standard drink = 0.6 oz pur e alcohol) Comments No Sex and Gender Information Value Date Recorded Sex Assigned at Not on file Legal Sex Female 12:56 PM CASINO PORTER Gender Identity Female 03/05/2022 12:13 PM CDT Sexual Orientation Not on file Obstetrics History Last Filed Vital Signs Vital Sign Reading Time Taken Comments Blood Pressure 112/62 11/27/2024 1:21 PM CASINO PORTER Pulse 81 11/27/2024 1:21 PM CASINO PORTER Temperature 36.6 C (97.8 F) 08/02/2024 10:52 AM CDT Respiratory Rate - - Oxygen Saturation 97% 11/27/2024 1:21 PM CASINO PORTER Inhaled Oxygen Concentration - - Weight 89.9 kg (198 lb 3.2 oz) 11/27/2024 1:21 P M CASINO PORTER Height 154.9 cm (5' 1 ) 11/27/2024 1:21 PM CASINO PORTER Body Mass Index 37.45 11/27/2024 1:21 PM CASINO PORTER Plan of Treatment Health Maintenance Due Date Last Done Comments Albumin Creatinine Ratio, Urine 1951 Colon Cancer Screening-Colonoscopy 1950 Fall Risk Assessment 1950 Hemoglobin A1C 1951 Hepatitis C Screening 1951 Osteoporosis Screening-Bone Density Scan 1951 Dilated Eye Exam 1951 Foot Exam 1951 Hepatitis B Screening 1969 Well Visit 65+ 2016 Breast Cancer Screening-Mammogram 04/08/2021 020, 04/08/2020 Lipid Panel 05/03/2024 05/03/2023, 10/25, 11/04/2020, Additional history exists Depression Screening 05/09/2025 05/09/2024 Influenza Vaccine (Season Ended) 2025 07/20/2022, 08/13/2020, 07/27/2019, Additional history exists eGFR 09/06/2025 09/06/2024, 02/2023, 07/16/2021 DTaP/Tdap/Td Vaccine (2 - Td or Tdap) 10/09/2026 10/09/2016 Pneumococcal vaccine 65+ Completed 018, 01/04/2017, 09/10/2015 Zoster Vaccine Completed 09/07/2021, 07/08/2021 Procedures Procedure Name Priority Date/Time Associated Diagnosis Comments EGFR Routine 09/06/2024 2:12 PM CASINO PORTER Steatohepatitis, non-alcoholic POCT LIPID PANEL Routine 05/03/2023 2:0 3 PM CDT Lipid screening DIAGNOSTIC MAMMOGRAM BILATERAL W BIB Schedule Routine, Read Routine (OP Routine) 04/08/2020 12:13 PM CDT Abnormal mammogram from Last 3 Months or Most Recently Relevant to Health Maintenance Results * (ABNORMAL) eGFR (09/06/2024 2:12 PM CASINO PORTER) eGFR 39(L) >=60 mL/min/1. 73 m2 Comment: [...] last reviewed 2021. Blood 09/06/2024 2:12 PM CASINO PORTER 09/06/2024 2:29 PM CASINO PORTER us Justin Wing MD LAB BLOOD ORDERABLES Final Result [facility] Department [place] [address] * POCT lipid panel (05/03/2023 2:03 PM CDT) Cholesterol, POC 146 mg/dL HDL, POC 43 mg/dL Triglycerides, POC 128 mg/dL LDL Cholesterol POC 77 mg/dL Chol/HDL Ratio, POC 1.8 Non-HDL Cholesterol, POC 103 mg/dL Cholesterol Total, POC 146 mg/dL Capillary blood 05/03/2023 2 :03 PM CDT us Castro Lopez MD POINT OF CARE TEST ORDER SILVIO Final Result * Diagnostic Mammogram Bilateral W Bib (04/08/2020 12:13 PM CDT) Anatomical Region Laterality [...] by: Fernanda Stewart M.D. Yoselin Oleary MD IM MAMMO PROCEDURES Fi nal Result from Last 3 Months or Most Recently Relevant to Health Maintenance Insurance MEDICARE FOR LIFE MEDICARE FOR LIFE Care Teams Rail Car Loader Relationship Specialty Start Date End Date Adwoa Ordonez DO [address] [place], [place] [id number] PCP - General Family Medicine 11/27/24
== END 2025-02-12 14:41 | disposition home or self-care (01) ==
LOC: ANHLAB 14:42
PROVIDERS: PCP Family Medicine; Visit Provider Internal Medicine Nephrology
DX: E11.22 Type 2 diabetes mellitus with diabetic chronic kidney disease (principal); I12.9 Hypertensive chronic kidney disease with stage 1 through stage 4 chronic kidney disease, or unspecified chronic kidney disease; N18.32 Chronic kidney disease, stage 3b
CPT/HCPCS: 36415; 80069; 82570; 84156

== ENCOUNTER 2025-02-13 13:00 | Outpatient (CLI) | payer MEDICARE, OTHER, SELFPAY ==
[2025-02-13 13:49] LABS: Alanine Aminotransferase 29 U/L (6-35); Albumin Level 4.3 g/dL (3.5-5.1); Alkaline Phosphatase 105 U/L (38-126); Anion Gap 12 mmol/L (4-12); Aspartate Amino Transferase 42 U/L (14-36); Bilirubin,Total 0.6 mg/dL (0.2-1.3); Blood Urea Nitrogen 38 mg/dL (7-17); Calcium 9.4 mg/dL (8.4-10.2); Carbon Dioxide 23 mmol/L (22-30); Chloride 105 mmol/L (98-107); Cholesterol 140 mg/dL (0-200); Estimated Glomerular Filt Rate 29; Glucose 138 mg/dL (65-110); HDL Direct 42 mg/dL; Potassium 4.4 mmol/L (3.4-5.0); Sodium 140 mmol/L (137-145); Triglycerides 151 mg/dL (<150)
[2025-02-13 14:00] LABS: LDL Cholesterol Direct 50 mg/dL
--- OUTSIDE RECORDS SUMMARY | 2025-02-13 14:33 | XMS_ITS | Clinical Summary ---
Author Organization [facility] Address [address] [place] [address] Care Team Providers Care Child & Adolescent Psychiatrist Name Role Phone Amisha Monique MD Primary Care Provider [phone] Castro Lopez MD Unavailable [phone] Judah Clark MD Unavailable Justin Wing MD Unavailable [phone] Allergies Active Allergy Reactions Criticality Noted Date [...] (06/01/2023): Added automatically from request for surgery [id number] Nausea and vomiting, unspecified vomiting type 0 06/01/2023 Overview (06/01/2023): Added automatically from request for surgery [id number] Irregular bowel habits 06/01/2023 Overview (06/01/2023): Added automatically from request for surgery [id number] Pain in joint of left shoulder 04/08/2023 [...] her referring physician Dr. De Jesus. Parkinsonism ([facility]) 11/24/2022 Overview (08/25/2023): Last Assessment & Plan: [...] 07/29/2022 Chronic cough 07/27/2022 Rheumatoid arthritis, unspecified ([facility]/ [facility]) 05/31/2022 Abdominal pain 12/28/2021 Abnormal gait 12/28/2021 Degeneration of lumbar intervertebral disc 12/28 Depressive disorder 12/28/2021 Drusen of optic disc 12/28/2021 Fracture of distal phalanx of finger 12/28/2021 Frequent nosebleeds 12/28/2021 Intertrigo 12/28/2021 Neoplasm of uncertain behavior of skin Posterior rhinorrhea 12/28/2021 Spinal stenosis of lumbar region 12/28/2021 Tremor 12/28/2021 Steatohepatitis, non-alcoholic 07/16/2021 Asthma ([facility]) 04/20/2020 Abnormal mammogram 04/07/2020 Nonrheumatic aortic valve stenosis 10/25/2019 Lump of left breast 07/06/2019 Allergic rhinitis 02/15/2019 Obesity with body mass index 30 or greater 02/15 Obstructive sleep apnea syndrome 02/15/2019 Diabetes mellitus ([facility]) 03/15/2018 Abnormal electrocardiography 11/19/2016 Overview (07/27/2022): Abnormal [...] lower extr emities with ulcer and inflammation ([facility]) 01/22/2016 Abnormal liver function tests 02/20/2011 Immunizations Immunization Administration Dates Next Due Influenza (Generic) 07/04/2013 Influenza Adult (Generic) 08/13/2020,01/2019,07/15/2018,2016,07/29/2016,07/25/2016 MMR (MMRII) 03/23/2019 [employer] COVID-19 (ORIGINAL FORMULATION, PURPLE CAP) mRNA, LNP-S, [...] Info) Description 07/30/2025 3:00 PM CDT Appointment [facility] [address] [place], [place] [id number] Judah Clark MD [address] [place], [place] [id number] Health Maintenance Due Date Last Done Comments [...] Hemoglobin A1C 08/08/2024 02/07/2024, 07/28/2022 PHQ-2 (Physician Cheesh-Na) 10/24/2024 05/03/2024 DTaP, Tdap and Td Vaccines [...] Hand RN Medical Devices Implanted Type Area Site Medical Director Device Identifier Shelf Expiration Date Model / Serial / Lot Orthofix 70mm Rods Implanted:Qty: 2 on 10/04/2023 by Laisha Rutledge MD at [facility] Juan N/A: Spine Lumbar NEW AGE MEDICAL 52-6070 / / Orthofix Set Screw Implanted:Qty: 6 on 10/04/2023 by Laisha Rutledge MD at [facility] Screw N/A: Spine Lumbar NEW AGE MEDICAL 36-2000 / / Orth[employer]ix Top Loading Body Implanted:Qty: 6 on 10/04/2023 by Laisha Rutledge MD at [facility] Screw N/A: Spine Lumbar NEW AGE MEDICAL 36-2101 / / Orthofix 6.5x40mm Screw Implanted:Qty: 6 on 10/04/2023 by Laisha Rutledge MD at [facility] Screw N/A: Spine Lumbar NEW [employer] [...] Recently Relevant to Health Maintenance Insurance MEDICARE [facility] [place] Care Teams Child & Adolescent Psychiatrist Relationship Specialty Start Date End Date Amisha Monique MD [address] [place] [address] PCP - General FAMILY PRACTICE 02/04/22 Castro Lopez MD [address] [facility] [address] [place] [address] CARDIOVASCULAR DISEASE 08/23/23 Judah Clark MD [address] [address] Referring Physician VASCULAR SURGERY 08/23/23 Justin Wing MD [address] [facility] [address] [place] [address] GASTROENTEROLOGY 08/23/23
--- OUTSIDE RECORDS SUMMARY | 2025-02-13 14:34 | XMS_ITS | Encounter Summary ---
Author Organization [facility] Address [address] [facility] [place] [address] Care Team Providers Care Wood Fence Erector Name Role Phone Amisha Monique MD Primary Care Provider [phone] Encounter Details Date Type Department Care Team (Late st Contact Info) Description 10/26/2022 Telephone [facility] SCHEDULING [address] [place] [address] Adriel Schwab MD [address] [place] [address] Social History Tobacco Use Types Packs/Day Years Used Date Smoking Tobacco: Never Smokeless Tobacco: Never Alcohol Use Standard Drinks/Week Comments No 0 (1 standard drink = 0.6 oz pur e alcohol) Comments No Sex and Gender Information Value Date Recorded Sex Assigned at Not on file Legal Sex Female 6:29 AM COMPOUNDING ASSISTANT Gender Identity Not on file Sexual Orientation Not on file documented as of this encounter Miscellaneous Notes * Telephone Encounter - Mikael Marroquin - 10/26/2022 11:39 AM CST Pt is upset over her bumped appt. Would like a sooner appt. Cannot come at 8 am because she watchesher grandson. Please contact patient. [phone]. OUNDING ASSISTANT documented in this encounter Plan of Treatment Not on file documented as of this encounter Visit Diagnoses Not on filedocumented in this encounter Care Teams Wood Fence Erector Relationship Specialty Start Date End Date Amisha Monique MD [address] [place] [id number] PCP - General 04/14/18 documented as of this encounter
--- OUTSIDE RECORDS SUMMARY | 2025-02-13 14:34 | XMS_ITS | Clinical Summary ---
Author Organization [facility] Address [address] [facility] [place] [address] Care Team Providers Care Pump Erector Name Role Phone Amisha Monique MD Primary Care Provider [phone] Source Comments [facility],non-owned Affiliates and Associated Physician Practices is amultiple site organization consisting of ambulatory clinics and hospital sitesin [place], [place], [place] and [place]. This disclosure is being madepursuant to the Care Everywhere program and may not contain all information available regarding this patient. Last updated 18.[facility] Medications * Be aware that medications may [...] on file Legal Sex Female 6:29 AM STOCK COUNTER Gender Identity Not on file Sexual Orientation Not on file Last Filed Vital Signs Vital Sign Reading Time Taken Comments Blood Pressure 132/77 09/08/2022 11:59 AM STOCK COUNTER 116/72 right arm Pulse 80 09/08/2022 11:59 AM STOCK COUNTER Temperature 36.3 C (97.3 F) 09/08/2022 11:59 AM STOCK COUNTER Respiratory Rate - - Oxygen Saturation 98% 09/08/2022 11: 59 AM STOCK COUNTER Inhaled Oxygen Concentration - - Weight 85.7 kg (189 lb) 09/08/2022 11:5 9 AM STOCK COUNTER Height 160 cm (5' 3 ) 09/08/2022 11:59 AM STOCK COUNTER Body Mass Index 33.48 09/08/2022 11:59 AM STOCK COUNTER Plan of Treatment Health Maintenance Due Date [...] age to complete this topic [place] [address] [facility] MEDICARE [facility] Care Teams Pump Erector Relationship Specialty Start Date End Date Amisha Monique MD [address] [place] [address] JUSTIN Mark [phone] PCP - General 04/14/18
--- OUTSIDE RECORDS SUMMARY | 2025-02-13 14:34 | XMS_ITS | Encounter Summary ---
Author Organization [facility] Address [facility] [place] [address] Care Team Providers Care Sports Team Manager Name Role Phone Amisha Monique MD Primary Care Provider [phone] Castro Lopez MD Unavailable [phone] Judah Clark MD Unavailable Justin Wing MD Unavailable [phone] Encounter Details Date Type Department Care Team (Late st Contact Info) Description 09/06/2023 Prep for Procedure [facility] [place], [place] [id number] Laisha Rutledge MD [address] [facility] [address] [place], [place] [id number] Social History Tobacco Use Types Packs/Day Years [...] 6:45 AM Judith Araya RN Active * [place] Suicide Severity Rating Scale (Screener/Recent Self-Report) Question [...] Info) Description 07/30/2025 3:00 PM CDT Appointment [facility] Vascular Lab [place], [place] [id number] Judah Clark MD [facility]. 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 Atherosclerosis of other specified arteries Diabetes mellitus ([facility]/HCC) Type II or unspecified type diabetes [...] giddiness documented in this encounter Care Teams Sports Team Manager Relationship Specialty Start Date End Date Amisha Monique MD [address] [place] [address] PCP - General FAMILY PRACTICE 02/04/22 Castro Lopez MD [address] [facility] [address] [place] [address] CARDIOVASCULAR DISEASE 08/23/23 Judah Clark MD [facility] [address] [place] [address] Referring Physician VASCULAR SURGERY 08/23/23 Justin Wing MD [address] [facility] [address] [place] [address] GASTROENTEROLOGY 08/23/23 documented as of this encounter
--- OUTSIDE RECORDS SUMMARY | 2025-02-13 14:34 | XMS_ITS | Encounter Summary ---
Author Organization [facility] Address [address] [facility] [address] [place] [address] Care Team Providers Care Layout Mechanic Name Role Phone Amisha Monique MD Primary Care Provider + Rohan Ordonez DECK HAND Primary Care Provider [phone] Elaine Parker DECK HAND Primary Care Provider Adwoa Ordonez DO Primary Care Provider Encounter Details Date Type Department Care Team (Late st Contact Info) Description 11/26/2016 Orders Only [facility] Provider, MD Maryam [address] [place] [address] Social History Tobacco Use Types Packs/Day Years Used Date Smoking Tobacco: Never Assessed Comments Unknown Sex and Gender Information Value Date Recorded Sex Assigned at Not on file Legal Sex Female 12:56 PM APPEALS AND GENERALIST CLERK Gender Identity Female 03/05/2022 12:13 PM [...] on filedocumented in this encounter Care Teams Layout Mechanic Relationship Specialty Start Date End Date Amisha Monique MD PCP - General 11/19/16 08/28/24 Rohan Ordonez NP [address] [place] [address] PCP - General Neurology 08/29/24 11/13/24 lEaine Parker NP [address] [address] PCP - General Nurse Practitioner 11/23/24 11/26/24 Adwoa Ordonez DO [address] [place] [address] PCP - General Family Medicine 11/27/24 documented as of this encounter
--- OUTSIDE RECORDS SUMMARY | 2025-02-13 14:34 | XMS_ITS | Encounter Summary ---
Author Organization [facility] Address [address] [facility] [address] [place] [address] Care Team Providers Care Scenic Artist Name Role Phone Amisha Monique MD Primary Care Provider + Rohan Ordonez ASSISTANT RESEARCH SCIENTIST Primary Care Provider [phone] Elaine Parker ASSISTANT RESEARCH SCIENTIST Primary Care Provider Adwoa Ordonez DO Primary Care Provider Encounter Details Date Type Department Care Team (Late st Contact Info) Description 11/19/2016 Orders Only [facility] Provider, MD Maryam [address] [place] [address] Social History Tobacco Use Types Packs/Day Years Used Date Smoking Tobacco: Never Assessed Comments Unknown Sex and Gender Information Value Date Recorded Sex Assigned at Not on file Legal Sex Female 12:56 PM AUTOMATED 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
--- OUTSIDE RECORDS SUMMARY | 2025-02-13 14:34 | XMS_ITS | Referral Summary ---
Author Organization [facility] [address] [facility] [address] Address [address] [place] [address] Care Team Providers Care Cook Specialty Foreign Food Name Role Phone Adwoa Ordonez Primary Care Provider Encounters Date Type Department Care Team Description 11/27/2024 1:15 PM OVERHEAD WORKER Office Visit [facility] Cardiology [address] [facility] [address] [place] [address] Castro Lopez MD Nonrheumatic aortic [...] controlled. Assessment & Plan (11/24/2022 7:09 PM OVERHEAD WORKER): She has balance problem of unclear etiology. [...] diagnosis. Assessment & Plan (11/24/2022 7:08 PM OVERHEAD WORKER): Technically she has parkinsonism stage 1 or [...] on file Legal Sex Female 12:56 PM OVERHEAD WORKER Gender Identity Female 03/05/2022 12:13 PM CDT Sexual Orientation Not on file Last Filed Vital Signs Vital Sign Reading Time Taken Comments Blood Pressure 112/62 11/27/2024 1:21 PM OVERHEAD WORKER Pulse 81 11/27/2024 1:21 PM OVERHEAD WORKER Temperature 36.6 C (97.8 F) 08/02/2024 10:52 AM CDT Respiratory Rate - - Oxygen Saturation 97% 11/27/2024 1:21 PM OVERHEAD WORKER Inhaled Oxygen Concentration - - Weight 89.9 kg (198 lb 3.2 oz) 11/27/2024 1:21 P M OVERHEAD WORKER Height 154.9 cm (5' 1 ) 11/27/2024 1:21 PM OVERHEAD WORKER Body Mass Index 37.45 11/27/2024 1:21 PM OVERHEAD WORKER Plan of Treatment Not on file Procedures Procedure Name Priority Date/Time Associated Diagnosis Comments EGFR Routine 09/06/2024 2:12 PM OVERHEAD WORKER Steatohepatitis, non-alcoholic POCT LIPID PANEL Routine 05/03/2023 2:03 PM CDT Lipid screening DIAGNOSTIC MAMMOGRAM BILATERAL W CRISTI Schedule Routine, Read Routine (OP Routine) 04/08/2020 12:13 PM CDT Abnormal mammogram from Last 3 Months or Most Recently Relevant to Health Maintenance Results * (ABNORMAL) eGFR (09/06/2024 2:12 PM OVERHEAD WORKER) eGFR 39(L) >=60 mL/min/1. 73 m2 Comment: [...] last reviewed 2021. Blood 09/06/2024 2:12 PM OVERHEAD WORKER 09/06/2024 2:29 PM OVERHEAD WORKER us Justin Wing MD LAB BLOOD ORDERABLES Final Result [facility] Department [place] [address] * POCT lipid panel (05/03/2023 2:03 PM [...] Health Maintenance Insurance MEDICARE FOR LIFE MEDICARE [facility] Address: [facility] [address] [place] [address] FOR LIFE Care Teams Cook Specialty Foreign Food Relationship Specialty Start Date End Date Adwoa Ordonez DO [address] [place] [address] PCP - General Family Medicine 11/27/24
--- OUTSIDE RECORDS SUMMARY | 2025-02-13 14:34 | XMS_ITS | Encounter Summary ---
Author Organization [facility] Address [address] [facility] [address] [place] [address] Care Team Providers Care Paper Box Maker Name Role Phone Amisha Monique MD Primary Care Provider + Rohan Ordonez THRESHING OPERATOR Primary Care Provider [phone] Elaine Parker THRESHING OPERATOR Primary Care Provider [phone] Adwoa Ordonez DO Primary Care Provider [phone] Encounter Details Date Type Department Care Team (Late st Contact Info) Description 10/09/2007 Orders Only [facility] Provider, MD Maryam [address] [place] [address] Social History Tobacco Use Types Packs/Day Years Used Date Smoking Tobacco: Never Assessed Comments Unknown Sex and Gender Information Value Date Recorded Sex Assigned at Not on file Legal Sex Female 12:56 PM CONFIGURATION MANAGEMENT MANAGER Gender Identity Female 03/05/2022 12:13 PM [...] on filedocumented in this encounter Care Teams Paper Box Maker Relationship Specialty Start Date End Date Amisha Monique MD PCP - General 11/19/16 08/28/24 Rohan Ordonez NP [address] [place] [address] PCP - General Neurology 08/29/24 11/13/24 Elaine Parker NP [address] [place] [address] PCP - General Nurse Practitioner 11/23/24 11/26/24 Adwoa Ordonez DO [address] [place] [address] PCP - General Family Medicine 11/27/24 documented as of this encounter
--- OUTSIDE RECORDS SUMMARY | 2025-02-13 14:34 | XMS_ITS | Continuity of Care Document ---
Author Name [facility] Organization [facility] Care Team Providers Care Tumbler Plater Name Role Phone [facility] Unavailable Unavailable Medications Combined list of outpatient [...] ORAL, EXELAN PHARMACE, 1000 ea. BOTTLE Active [id number] 4 2023 90 Pharmac y Data Transac tion Service Facilit y AMLODIPINE BESYLATE (AMLODIPINE BESYLATE), 5 MG, TABLET, ORAL, EXELAN PHARMACE, 1000 ea. BOTTLE Active [id number] 4 2023 90 Pharmac y Data Transac tion Service Facilit y DOXYCYCLINE HYCLATE (doxycyclin e hyclate), 100 MG, TABLET, ORAL, MoSync, 50 ea. BOTTLE Active [id number] 4 2023 14 Pharmac y Data Transac tion Service Facilit y LOSARTAN-HY DROCHLOROTH IAZIDE (losartan potassium/h ydrochlorot hiazide), 100MG-25MG, TABLET, ORAL, Almondy HEALTHCAR, 1000 ea. BOTTLE Active [id number] 4 2023 90 Pharmac y Data Transac tion Service Facilit y PEG-3350 (SODIUM CHLORIDE/NA HCO3/KCL/PE G), 420G, SOLN RECON, ORAL, AFFORDABLE PHAR, 4000 ml BOTTLE Active [id number] 4 2023 4000 Pharmac y Data Transac tion Service Facilit y PIROXICAM (PIROXICAM) , 20 MG, CAPSULE, ORAL, AVKARE, 500 ea. BOTTLE Active [id number] 4 2023 90 Pharmac y Data Transac tion Service Facilit y ROPINIROLE HCL (ROPINIROLE HCL), 0.25 MG, TABLET, ORAL, MasterImage 3D PHARMA, 100 ea. BOTTLE Cancele d [id number] : 2023 0 Pharmac y Data Transac tion Service Facilit y ROPINIROLE HCL (ropinirole HCl), 0.25 MG, TABLET, ORAL, MARLEX PHARM., 100 ea. BOTTLE Cancele d [id number] : 2023 0 Pharmac y Data Transac tion Service Facilit y ROPINIROLE HCL (ropinirole HCl), 0.25 MG, TABLET, ORAL, MARLEX PHARM., 100 ea. BOTTLE Active [id number] 4 2023 270 Pharmac y Data Transac tion Service Facilit y ROPINIROLE HCL (ropinirole HCl), 0.5 MG, TABLET, ORAL, MARLEX PHARM., 100 ea. BOTTLE Cancele d [id number] : 2023 0 Pharmac y Data Transac tion Service Facilit y ROSUVASTATI N CALCIUM (rosuvastat in calcium), 20 MG, TABLET, ORAL, [facility], 90 ea. BOTTLE Active [id number] 4 2023 90 Pharmac y Data Transac tion Service Facilit y TIMOLOL MALEATE (TIMOLOL MALEATE), 0.5 %, DROPS, OPHTHALMIC, RISING PHARM, 15 ml DROP BTL Cancele d [id number] : 2023 0 Pharmac y Data Transac tion Service Facilit y TIMOLOL MALEATE (TIMOLOL MALEATE), 0.5%, DROPS, OPHTHALMIC, ADLER PHARM, 15 ml DROP BTL Active [id number] 02/01/20 2 4 2023 15 Pharmac y Data Transac tion Service Facilit y Immunizations Combined list of available immunizations from the Department of Defense and Veterans Affairs facilities. Immunization Series Date Given Administered By Site Reaction Lot Number CVX Code Drug Well Logging Mud Analysis Captain Status Comments Source COVID-19, mRNA, LNP-S, PF, 30 mcg/0.3 mL dose, emily-sucrose 2021 [facility], () Not Given COVID-19, mRNA, LNP-S, PF, 30 mcg/0.3 mL dose, emily-sucr ose DoD zoster recombinant 2020 [facility], () Not Given zoster recombina nt DoD COVID-19, mRNA, LNP-S, PF, 30 mcg/0.3 mL dose 2020 [facility], [email or web address] [place] (PFR) Not Given COVID-19, mRNA, LNP-S, [...] facilities. Social History Type Response Date Comment [facility] e This section is an empty social history section. DoD
--- OUTSIDE RECORDS SUMMARY | 2025-02-13 14:34 | XMS_ITS | Clinical Summary ---
Author Organization [facility] [address] Address [address] [place] [address] Care Team Providers Care Stretcher Leveler Operator Helper Name Role Phone Adwoa Ordonez Primary Care [...] controlled. Assessment & Plan (11/24/2022 7:09 PM GLASS CUT OFF SUPERVISOR): She has balance problem of unclear etiology. [...] diagnosis. Assessment & Plan (11/24/2022 7:08 PM GLASS CUT OFF SUPERVISOR): Technically she has parkinsonism stage 1 or [...] Department Care Team Description 11/27/2024 1:15 PM GLASS CUT OFF SUPERVISOR Office Visit [facility] Cardiology [address] [place] [phone] Castro Lopez MD Nonrheumatic aortic valve stenosis [...] on file Legal Sex Female 12:56 PM GLASS CUT OFF SUPERVISOR Gender Identity Female 03/05/2022 12:13 PM CDT Sexual Orientation Not on file Obstetrics History Last Filed Vital Signs Vital Sign Reading Time Taken Comments Blood Pressure 112/62 11/27/2024 1:21 PM GLASS CUT OFF SUPERVISOR Pulse 81 11/27/2024 1:21 PM GLASS CUT OFF SUPERVISOR Temperature 36.6 C (97.8 F) 08/02/2024 10:52 AM CDT Respiratory Rate - - Oxygen Saturation 97% 11/27/2024 1:21 PM GLASS CUT OFF SUPERVISOR Inhaled Oxygen Concentration - - Weight 89.9 kg (198 lb 3.2 oz) 11/27/2024 1:21 P M GLASS CUT OFF SUPERVISOR Height 154.9 cm (5' 1 ) 11/27/2024 1:21 PM GLASS CUT OFF SUPERVISOR Body Mass Index 37.45 11/27/2024 1:21 PM GLASS CUT OFF SUPERVISOR Plan of Treatment Health Maintenance Due Date [...] Diagnosis Comments EGFR Routine 09/06/2024 2:12 PM GLASS CUT OFF SUPERVISOR Steatohepatitis, non-alcoholic POCT LIPID PANEL Routine 05/03/2023 2:0 3 PM CDT Lipid screening DIAGNOSTIC MAMMOGRAM BILATERAL W BIB Schedule Routine, Read Routine (OP Routine) 04/08/2020 12:13 PM CDT Abnormal mammogram from Last 3 Months or Most Recently Relevant to Health Maintenance Results * (ABNORMAL) eGFR (09/06/2024 2:12 PM GLASS CUT OFF SUPERVISOR) eGFR 39(L) >=60 mL/min/1. 73 m2 Comment: [...] last reviewed 2021. Blood 09/06/2024 2:12 PM GLASS CUT OFF SUPERVISOR 09/06/2024 2:29 PM GLASS CUT OFF SUPERVISOR us Justin Wing MD LAB BLOOD ORDERABLES Final Result [facility] Department [place] [address] * POCT lipid panel (05/03/2023 2:03 PM [...] FOR LIFE MEDICARE FOR LIFE Care Teams Stretcher Leveler Operator Helper Relationship Specialty Start Date End Date Adwoa Ordonez DO [address] [place], [place] [phone] PCP - General Family Medicine 11/27/24
== END 2025-02-13 13:01 | disposition home or self-care (01) ==
PROVIDERS: PCP Family Medicine; Visit Provider Family Medicine
DX: E78.5 Hyperlipidemia, unspecified (principal); R74.8 Abnormal levels of other serum enzymes
CPT/HCPCS: 36415; 80053; 80061

== ENCOUNTER 2025-07-23 15:00 | Outpatient (CLI) | payer MEDICARE, OTHER, SELFPAY ==
--- NOTE | ~2025-07-23 | MM_ITS ---
EXAMINATION: MM screening arash BI w ginger HISTORY: Screening TECHNIQUE: Craniocaudal and mediolateral oblique 3-D tomosynthesis images were obtained and synthetic 2-D images were generated. CAD analysis was submitted and interpreted. COMPARISON: Comparison to multiple prior studies sequentially, with oldest reviewed study dated 05/26/2018. BREAST PARENCHYMAL COMPOSITION: There are scattered areas of fibroglandular density. FINDINGS: There is no evidence of suspicious mass, calcification, or architectural distortion to suggest malignancy in either breast. There has been no suspicious interval change. IMPRESSION: 1. No mammographic evidence of malignancy. 2. Recommend routine screening mammography in one year. BI-RADS Category 1: Negative Reviewed, dictated and finalized at location B.
== END 2025-07-23 15:01 | disposition home or self-care (01) ==
PROVIDERS: PCP Family Medicine; Visit Provider Family Medicine
DX: Z12.31 Encounter for screening mammogram for malignant neoplasm of breast (principal)
CPT/HCPCS: 77063; 77067

== ENCOUNTER 2025-08-19 14:38 | Outpatient (CLI) | payer MEDICARE, OTHER, SELFPAY ==
[2025-08-19 15:18] LABS: Hematocrit 40.4 % (37.0-47.0); Hemoglobin 12.9 g/dL (12.0-15.0); Immature Granulocyte Percent A 0.2 % (0-0.5); Lymphocytes Absolute Auto 0.63 K/mm3 (0.9-3.2); Mean Corpuscular HGB Conc 31.9 g/dl (32-36); Mean Corpuscular Hemoglobin 25.2 pg (26-34); Mean Corpuscular Volume 78.9 fl (80-100); Nucleated Red Blood Cells Absolute Auto 0.000 K/mm3 (0.0-0.012); Nucleated Red Blood Cells Perc 0.0 % (0.0-0.2); Platelet Count Result 200 k/mm3 (150-375); Red Blood Count 5.12 M/mm3 (4.2-5.4); White Blood Count 4.2 K/mm3 (4.5-10.0)
[2025-08-19 15:30] LABS: Alanine Aminotransferase 35 U/L (6-35); Albumin Level 4.7 g/dL (3.5-5.1); Alkaline Phosphatase 102 U/L (38-126); Anion Gap 15 mmol/L (4-12); Aspartate Amino Transferase 53 U/L (14-36); Bilirubin,Total 0.8 mg/dL (0.2-1.3); Blood Urea Nitrogen 34 mg/dL (7-17); Calcium 9.9 mg/dL (8.4-10.2); Carbon Dioxide 23 mmol/L (22-30); Chloride 92 mmol/L (98-107); Estimated Glomerular Filt Rate 19; Glucose 117 mg/dL (65-110); Potassium 3.3 mmol/L (3.4-5.0); Sodium 130 mmol/L (137-145); Total Protein 8.2 g/dL (6.3-8.2)
[2025-08-19 15:32] LABS: Total Protein Urine Random 32 mg/dL; Ur Ttl Prot Creatinine Ratio 0.65 mg/mg (0-0.20)
[2025-08-19 16:08] LABS: Thyroid Stimulating Hormone Reflex 2.440 uIU/mL (0.465-4.68)
[2025-08-19 16:14] LABS: Hemoglobin A1C 6.4 % (<5.7)
--- OUTSIDE RECORDS SUMMARY | 2025-08-19 16:20 | XMS_ITS | Clinical Summary ---
Author Organization [facility] [place] [address] Address [address] [place] [address] Care Team Providers Care Locomotive Observer Name Role Phone Adwoa Ordonez Primary Care Provider Allergies Active Allergy Reactions Criticality Noted Date Comments Cat Dander Unknown 02/01/2019 Medications hydroCHLOROthiaz annette (HYDRODIURIL) 25 mg tablet take 1 tablet by oral route every day 0 0 11/19/19 17 Active losartan (COZAAR) 100 mg tablet take 1 tablet by oral route every day 0 0 11/19/19 17 Active piroxicam (FELDENE) 20 mg capsule take 1 capsule by oral route 3 TIMES A WEEK FOR ARTHRITIS 0 0 11/19/19 17 Active albuterol sulfate (PROAIR RESPICLICK) 90 mcg/actuation aerosol powdr breath activated inhale 2 puff by inhalation route every 4 - 6 hours as needed 0 Inhaler 0 11/19/19 17 Active nystatin cream as needed 01/05/20 18 Active ADVAIR HFA 230-21 mcg/actuation inhaler 2 (two) times a day 01/01/20 18 Active tolterodine LA (DETROL LA) 4 mg 24 hr capsuleIndicatio ns:Urinary Urge Incontinence Take 1 capsule (4 mg total) by mouth daily Active aspirin (ENTERIC COATED ASPIRIN) 81 mg enteric coated tabletIndication s: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 route before meals for 30 days. Active liothyronine (CYTOMEL) 5 mcg tablet Take 1 tablet (5 mcg total) by mouth daily Active pimecrolimus (ELIDEL) 1 % cream pimecrolimus 1 % topical cream APPLY A THIN LAYER TO THE AFFECTED AREA(S) BY TOPICAL ROUTE 2 TIMES PER DAY ; RUB IN GENTLY AND COMPLETELY 12/17/19 21 Active levothyroxine (SYNTHROID) 100 mcg tablet TAKE 1 TABLET BY MOUTH ONCE DAILY IN THE MORNING 05/18/20 21 Active timolol (TIMOPTIC) 0.5 % ophthalmic solution INSTILL 1 DROP INTO EACH EYE TWICE DAILY 07/09/20 21 Active rOPINIRole (REQUIP) 0.25 mg tablet Take 1 tablet (0.25 mg total) by mouth 3 (three) times a day 10/09/20 21 Active QUEtiapine (SEROquel) 100 mg tablet 07/19/20 22 Active amLODIPine (NORVASC) 5 mg tablet Take 1 tablet (5 mg total) by mouth daily 09/20/20 22 Active losartan-hydroch lorothiazide (HYZAAR) 100-25 mg per tablet Take 0.5 tablets by mouth daily Active traZODone (DESYREL) 50 mg tablet TAKE 1 TABLET BY MOUTH EVERY DAY AT BEDTIME NEEDED FOR INSOMNIA Active Mounjaro 2.5 mg/0.5 mL pen injector injection ADMINISTER 2.5 MG UNDER THE SKIN WEEKLY FOR 4 WEEKS 07/18/20 25 Active cholecalciferol (VITAMIN D-3) 2000 unit capsule Take 1 capsule (2,000 Units total) by mouth daily Discontin ued(Thera py completed ) montelukast (SINGULAIR) 10 mg tablet Take 1 tablet (10 mg total) by mouth nightly Discontin ued(Thera py completed ) melatonin 1 mg/4 mL drops hs Discontin ued(Thera py completed ) metFORMIN XR (GLUCOPHAGE XR) 500 mg 24 hr tablet half a tablet twice daily with meals 11/17/19 21 025 Discontin ued(Thera py completed ) cyanocobalamin (Vitamin B-12) 1,000 mcg sublingual tablet daily 025 Discontin ued(Thera py completed ) levoFLOXacin (LEVAQUIN) 500 mg tablet levofloxacin 500 mg tablet 025 Discontin ued(Thera py completed ) Active Problems Problem Noted Date Diagnosed Date IPMN (intraductal papillary mucinous neoplasm) 1 Balance problem 11/24/2022 Assessment & Plan (07/31/2025 2:59 PM CDT): Mrs. Edgar had a decline in her mobility in the past year. She did have PT for her right knee, but not for her balance. She had no falls, but had near falls. She mostly used her motorized scooter outside the home. She also used cane and walker. Her legs felt heavy. She had a back surgery years ago and now have a pain stimulator that she did not think it helped much. She did have some benefit initially, but then she felt she could not walk as good due to the back discomfort. She could not walk long distances. Today, she was able to walk by herself with near by assist. Her gait was slow and choppy. She could benefit from PT. We discussed the benefits. She did not like to ask her to drive her to [place]. I explained that she could go to any PT place close to her home even if it is once to get some exercises she could do at home. Recommendations No medication changes today Consult with PCP on increasing trazodone for sleep Fall precaution PT order provided today Make rov with Dr. Carrero Assessment & Plan (05/09/2024 10:19 PM CDT): [...] controlled. Assessment & Plan (11/24/2022 7:[address] LIGHT WIRER): She has balance problem of unclear etiology. [...] diagnosis. 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 1 or [...] Encounters Date Type Department Care Team Description 08/15/2025 10:40 AM CDT Office Visit [facility] Medicine Gastroenterology [address] [place] [address] [place] [address] Justin Wing MD Steatohepatitis, non-alcoholic (Primary Dx); IPMN (intraductal papillary mucinous neoplasm) 08/13/2025 Documentation [facility] Medicine Movement Disorders [address] [place] [address] Reba Madsen CMA 07/31/2025 11:00 AM CDT Office Visit [facility] Medicine Movement Disorders [address] [place] [address] Karly Echevarria NP Unspecified abnormalities of gait and mobility (Primary Dx); Abnormal gait; Balance problem 06/21/2025 Telephone [facility] Medicine Scheduling [address] [place] [address] Howard Carrero MD PhD Scheduling Appointments 06/13/2025 Telephone [facility] Medicine Scheduling [address] [id number] [facility] Scheduling Appointments from Last 3 Months Surgical History Surgery [...] pinned/ right casted Type 2 diabetes mellitus Aortic stenosis Family History Medical History Relation [...] on file Legal Sex Female 12:[address] [facility]IGHT WIRER Gender Identity Female 03/05/2022 12:13 PM CDT Sexual Orientation Not on file Obstetrics History Last Filed Vital Signs Vital Sign Reading Time Taken Comments Blood Pressure 121/70 08/15/2025 10:36 AM CDT Pulse 81 08/15/2025 10:36 AM CDT Temperature 36.8 C (98.2 F) 08/15/2025 10:36 AM CDT Respiratory Rate - - Oxygen Saturation 96% 08/15/2025 10:36 AM CDT Inhaled Oxygen Concentration - - Weight 87 kg (191 lb 12.8 oz) 08/15/2025 10:36 A M CDT Height 154.9 cm (5' 1) 08/15/2025 10:36 AM CDT Body Mass Index 36.24 08/15/2025 10:36 AM CDT Plan of Treatment Health Maintenance Due Date [...] exists Depression Screening 05/09/2025 05/09/2024 Influenza Vaccine (#1) 2025 , 07/20/2022, 08/13/2020, Additional history exists eGFR 09/06/2025 09/06/2024, 02/2023, 07/16/2021 DTaP/Tdap/Td Vaccine (3 - Td or Tdap) 12/19/2034 12/19/2024, 10/09/2016 Pneumococcal vaccine 65+ Completed 018, 01/04/2017, 09/10/2015 Zoster Vaccine Completed 09/07/2021, 07/08/2021 Procedures Procedure Name Priority Date/Time Associated Diagnosis Comments EGFR Routine 09/06/2024 2:[address] [facility] Steatohepatitis, non-alcoholic POCT LIPID PANEL Routine 05/03/2023 2:03 PM CDT Lipid screening DIAGNOSTIC MAMMOGRAM BILATERAL W BIB Schedule Routine, Read Routine (OP Routine) 04/08/2020 12:13 PM CDT Abnormal mammogram from Last 3 Months or Most Recently Relevant to Health Maintenance Results * (ABNORMAL) eGFR (09/06/2024 2:[address] LIGHT WIRER) eGFR 39(L) >=60 mL/min/1. 73 m2 Comment: [...] last reviewed 2021. Blood 09/06/2024 2:[address] [facility] 09/06/2024 2:[address] [facility] us Justin Wing MD LAB BLOOD ORDERABLES Final Result [facility] [address] [facility] Department [place] [address] * POCT lipid panel (05/03/2023 2:03 PM [...] FOR LIFE MEDICARE FOR LIFE Care Teams Locomotive Observer Relationship Specialty Start Date End Date Adwoa Ordonez DO [address] [place] [id number] PCP - General Family Medicine 11/27/24
--- OUTSIDE RECORDS SUMMARY | 2025-08-19 16:20 | XMS_ITS | Clinical Summary ---
Author Organization [facility] Address [address] [place] [address] Care Team Providers Care Medical Education Manager Name Role Phone Amisha Monique MD Primary Care Provider [phone] Castro Lopez MD Unavailable [phone] Judah Clark MD Unavailable Justin Wing MD Unavailable [phone] Allergies Active Allergy Reactions Criticality Noted Date [...] (06/01/2023): Added automatically from request for surgery [id number] Nausea and vomiting, unspecified vomiting type 0 06/01/2023 Overview (06/01/2023): Added automatically from request for surgery [id number] Irregular bowel habits 06/01/2023 Overview (06/01/2023): Added automatically from request for surgery [id number] Pain in joint of left shoulder 04/08/2023 [...] referring physician Dr. De Jesus. Parkinsonism 11/24/2022 Overview (08/25/2023): Last Assessment & Plan: [...] 07/29/2022 Chronic cough 07/27/2022 Rheumatoid arthritis, unspecified 05/31/2022 Abdominal pain 12/28/2021 Abnormal gait 12/28/2021 Degeneration of lumbar intervertebral disc 12/28 Depressive disorder 12/28/2021 Drusen of optic disc 12/28/2021 Fracture of distal phalanx of finger 12/28/2021 Frequent nosebleeds 12/28/2021 Intertrigo 12/28/2021 Neoplasm of uncertain behavior of skin 2 Posterior rhinorrhea 12/28/2021 Spinal stenosis of lumbar region 12/28/2021 Tremor 12/28/2021 Steatohepatitis, non-alcoholic 07/16/2021 Asthma 04/20/2020 Abnormal mammogram 04/07/2020 Nonrheumatic aortic valve stenosis 10/25/2019 Lump of left breast 07/06/2019 Allergic rhinitis 02/15/2019 Obesity with body mass index 30 or greater 02/15 Obstructive sleep apnea syndrome 02/15/2019 Diabetes mellitus 03/15/2018 Abnormal electrocardiography 11/19/2016 Overview (07/27/2022): Abnormal [...] extr emities with ulcer and inflammation 01/22/2016 Abnormal liver function tests 02/20/2011 Immunizations Immunization Administration Dates Next Due Influenza (Generic) 07/04/2013 Influenza Adult (Generic) 08/13/2020,01/2019,07/15/2018,2016,07/29/2016,07/25/2016 MMR (MMRII) 03/23/2019 [employer] COVID-19 (ORIGINAL FORMULATION, PURPLE CAP) mRNA, LNP-S, [...] 2:34 PM CDT Height 157.5 cm (5' 2) 05/08/2024 2:34 PM CDT Body Mass Index 35.67 05/08/2024 2:34 PM CDT Plan of Treatment Health Maintenance Due Date Last Done Comments ASCVD LDL 1950 ASCVD Statin 1950 Kidney Health Evaluation 1950 Diabetes: Retinopathy Eye Exam 1969 Hepatitis C 1969 Hepatitis A Vaccines (1 of 2 - Risk 2-dose series) 1970 RSV Immunization or 60+ Years (1 - Risk 60-74 years 1-dose series) 2011 Annual Medicare Wellness Visit 2016 Dexa Scan (General) 2016 Mammogram Screening 04/08/2022 04/08/2020 Lipid Panel 05/03/2024 05/03/2023 Hemoglobin A1C 08/08/2024 02/07/2024, 07/28/2022 PHQ-2 (Physician [employer] [place]) 10/24/2024 05/03/2024 COVID-19 Vaccine ( season) 2025 02/17/2022, 02/17/2022, 08/03/2021, Additional history exists Influenza Adult (#1) 2025 08/13/2020, 07/27/2019, 07/15/2018, Additional history exists DTaP, Tdap and Td Vaccines (2 - [...] transitions and discharge planning Lifestyle No Igor Hand, RN Medical Devices Implanted Type Area Reforestation Worker Device Identifier Shelf Expiration Date Model / Serial / Lot Orthofix 70mm Rods Implanted:Qty: 2 on 10/04/2023 by Laisha Rutledge MD at [facility] Juan N/A: Spine Lumbar NEW AGE MEDICAL 52-6070 / / Orthofix Set Screw Implanted:Qty: 6 on 10/04/2023 by Laisha Rutledge MD at [facility] Screw N/A: Spine Lumbar NEW AGE MEDICAL 36-2000 / / Orthofix Top Loading Body Implanted:Qty: 6 on 10/04/2023 by Laisha Rutledge MD at [facility] Screw N/A: Spine Lumbar NEW AGE MEDICAL 36-2101 / / Orthofix 6.5x40mm Screw Implanted:Qty: 6 on 10/04/2023 by Laisha Rutledge MD at [facility] Screw N/A: Spine Lumbar NEW AGE MEDICAL [id number] / / Procedures Procedure Name Priority [...] Recently Relevant to Health Maintenance Insurance MEDICARE [employer] Care Teams Medical Education Manager Relationship Specialty Start Date End Date Amisha Monique MD [address] [place] [id number] PCP - General FAMILY PRACTICE 02/04/22 Castro Lopez MD [address] [facility] [address] [place] [address] CARDIOVASCULAR DISEASE 08/23/23 Judah Clark MD [facility] [address] [place] [address] Referring Physician VASCULAR SURGERY 08/23/23 Justin Wing MD [address] [facility] [address] [place] [address] GASTROENTEROLOGY 08/23/23
--- OUTSIDE RECORDS SUMMARY | 2025-08-19 16:20 | XMS_ITS | Encounter Summary ---
Author Organization [facility] Address [facility] [place] [address] Care Team Providers Care Casing Sewer Name Role Phone Amisha Monique MD Primary Care Provider [phone] Castro Lopez MD Unavailable [phone] Judah Clark MD Unavailable Justin Wing MD Unavailable [phone] Encounter Details Date Type Department Care Team (Late st Contact Info) Description 09/06/2023 Prep for Procedure [employer] Pre-Admission Testing [place], [place] [id number] Laisha Rutledge MD [address] [facility] [address] [place], [place] [id number] Social History Tobacco Use Types Packs/Day Years [...] 6:45 AM Judith Araya RN Active * [place] Suicide Severity Rating Scale (Screener/Recent Self-Report) Question [...] of lower extremities with ulcer and inflammation ([facility]/HCC HHS/HCC) 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 [facility] [address] [place] [address] Referring Physician VASCULAR SURGERY 08/23/23 Justin Wing MD [address] [facility] [address] [place] [address] GASTROENTEROLOGY 08/23/23 documented as of this encounter
--- OUTSIDE RECORDS SUMMARY | 2025-08-19 16:20 | XMS_ITS | Clinical Summary ---
Author Organization [facility] Address [address] [place] [address] Care Team Providers Care Miniature Set Builder Name Role Phone Amisha Monique MD Primary Care Provider [phone] Source Comments [employer] [facility],non-owned Affiliates and Associated Physician Practices is amultiple site organization consisting of ambulatory clinics and hospital sitesin [place], [place], [place] and [place]. This disclosure is being madepursuant to the Care Everywhere program and may not contain all information available regarding this patient. 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 Gender Identity Not on file Sexual Orientation Not on file Last Filed Vital Signs Vital Sign Reading Time Taken Comments Blood Pressure 132/77 09/08/2022 11:59 AM ANIMAL HOSPITAL CLERK 116/72 right arm Pulse 80 09/08/2022 11:59 AM ANIMAL HOSPITAL CLERK Temperature 36.3 C (97.3 F) 09/08/2022 11:59 AM ANIMAL HOSPITAL CLERK Respiratory Rate - - Oxygen Saturation 98% 09/08/2022 11: 59 AM ANIMAL HOSPITAL CLERK Inhaled Oxygen Concentration - - Weight 85.7 kg (189 lb) 09/08/2022 11:5 9 AM ANIMAL HOSPITAL CLERK Height 160 cm (5' 3) 09/08/2022 11:59 AM ANIMAL HOSPITAL CLERK Body Mass Index 33.48 09/08/2022 11:59 AM ANIMAL HOSPITAL CLERK Plan of Treatment Health Maintenance Due Date [...] of 2) 2001 SCREENING FOR DIABETES 09/08/2022 DEPRESSION SCREENING 10/24/2024 COVID-19 VACCINE (2 - 2024- season) 2025 02/17/2022 INFLUENZA VACCINE (#1) 2025 2, 08/13/2020, 07/27/2019, Additional history exists Respiratory Syncytial [...] age to complete this topic Insurance MEDICARE [facility] MEDICARE [facility] Care Teams Miniature Set Builder Relationship Specialty Start Date End Date Amisha Monique MD [address] [place] [address] JUSTIN Mark [phone] PCP - General 04/14/18
--- OUTSIDE RECORDS SUMMARY | 2025-08-19 16:20 | XMS_ITS | Data Portability ---
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 Ervin [email or web address] Not available 02/07/2024 14:14:45 Plan of Treatment Reminders Order Date Submit Date Provider Last Modified By Organization Details Last Modified Time Details Appointments None recorded. Lab lipid panel, serum 2023 024 AURY Not available 22:11:57 hepatic function panel, serum 2023 024 AURY Not available 4 22:12:00 HbA1c (hemoglobin A1c), blood 2023 024 [email or web address] Not available 08:08:47 BMP, serum or plasma 2023 024 AURY Not available 22:11:55 vitamin D, 25-hydroxy, total, serum 2023 024 AURY Not available 4 01:01:43 CBC w/ auto diff 2023 024 AURY Not available 21:13:50 noninvasive colorectal cancer DNA + occult blood screening, QL, stool 2023 024 [email or web address] [facility], [address], [address], [place], [address], 08:22:10 TSH, serum or plasma 2023 AURY Not available 22:39:06 T4, free, serum 2023 AURY Not available 22:26:00 vitamin B12, serum 2023 AURY Not available 23:26:12 folate, serum 2023 AURY Not available 23:26:16 Referral cardiologis t referral - Please call patient to schedule an appointment . Thank you. 2023 [email or web address] Castro Lopez MD, [address] [place] [address] [address], [place], [address], 08:34:04 Procedures None recorded. Surgeries None recorded. Imaging None recorded. Medication Orders piroxicam 20 mg capsule 2023 [employer] [id number], [address] [facility], [place], [place], [id number], 16:39:21 quetiapine 100 mg tablet 2023 [employer] [facility], [facility] [facility], [place], [address], 16:39:18 Patient TargetsNo targets recorded. Patient InstructionsNo instructions recorded. 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 Thank you. Referring Physician: Amisha Monique, Family Medicine, Encounter Date: 02/07/2024 Results Created Date Observation Date Name Description Value Unit Range Abnormal Flag Note LastModifiedBy Organization Detail LastModifiedTime 02/07/20 24 02/07/2024 CBC/C OMPLE TE BLD COUNT W/DIF F white blood cells 6.4 x10'3 /uL 4.2-[address] [facility] (Lab) [address] [place], [address], 02/07/2024 21:53:57 02/07/20 24 02/07/2024 CBC/C OMPLE TE BLD COUNT W/DIF F red blood cells 4.59 x10'6 /uL 3.80-[address] [facility] (Lab) [address] [place], [address], 02/07/2024 21:53:57 02/07/20 24 02/07/2024 CBC/C OMPLE TE BLD COUNT W/DIF F hemoglobin 10.2 g/dL 12.0-1 5[address] [facility] (Lab) [address] [place], [address], 02/07/2024 21:53:57 02/07/20 24 02/07/2024 CBC/C OMPLE TE BLD COUNT W/DIF F hematocrit 34.8 % 35.7-4 5[address] [facility] (Lab) [address] [place], [address], 02/07/2024 21:53:57 02/07/20 24 02/07/2024 CBC/C OMPLE TE BLD COUNT W/DIF F mean red cell volume 75.8 fL 82.0-9 9[address] [facility] (Lab) [address] [place], [address], 02/07/2024 21:53:57 02/07/20 24 02/07/2024 CBC/C OMPLE TE BLD COUNT W/DIF F mean red cell hemoglobin 22.2 pg 27.0-3 [address] [facility] (Lab) [address] [place], [address], 02/07/2024 21:53:57 02/07/20 24 02/07/2024 CBC/C OMPLE TE BLD COUNT W/DIF F mean RBC HGB concentratio n 29.3 g/dL 31.0-3 6.0 low Not Available [facility] (Lab) [address] [place], [address], 02/07/2024 21:53:57 02/07/20 24 02/07/2024 CBC/C OMPLE TE BLD COUNT W/DIF F red cell distribution width 16.6 % 11.8-1 5[address] [facility] (Lab) [address] [place], [address], 02/07/2024 21:53:57 02/07/20 24 02/07/2024 CBC/C OMPLE TE BLD COUNT W/DIF F platelets 285 x10'3 /uL 150-[address] [facility] (Lab) [address] [place], [address], 02/07/2024 21:53:57 02/07/20 24 02/07/2024 CBC/C OMPLE TE BLD COUNT W/DIF F mean platelet volume 10.3 fL 9.0-[address] [facility] (Lab) [address] [place], [address], 02/07/2024 21:53:57 02/07/20 24 02/07/2024 CBC/C OMPLE TE BLD COUNT W/DIF F neutrophils 65.3 % 39.0-[address] [facility] (Lab) [address] [place], [address], 02/07/2024 21:53:57 02/07/20 24 02/07/2024 CBC/C OMPLE TE BLD COUNT W/DIF F lymphocytes 18.0 % 16.0-[address] [facility] (Lab) [address] [place], [address], 02/07/2024 21:53:57 04/16/02/07/2024 CBC/C OMPLE TE BLD COUNT W/DIF F monocytes 12.3 % 5.0-12 [address] [facility] (Lab) [address] [place], [address], 02/07/2024 21:53:57 02/07/20 24 02/07/2024 CBC/C OMPLE TE BLD COUNT W/DIF F eosinophils 3.6 % 1.0-7. [address] [facility] (Lab) [address] [place], [address], 02/07/2024 21:53:57 02/07/2002/07/2024 CBC/C OMPLE TE BLD COUNT W/DIF F basophils 0.5 % 0.0-2. [address] [facility] (Lab) [address] [place], [address], 02/07/2024 21:53:57 02/07/20 24 02/07/2024 CBC/C OMPLE TE BLD COUNT W/DIF F immature granulocytes 0.3 % 0.00-[address] [facility] (Lab) [address] [place], [address], 02/07/2024 21:53:57 02/07/20 24 02/07/2024 CBC/C OMPLE TE BLD COUNT W/DIF F neutrophils, absolute count 4.20 x10'3 /uL 1.5-8. [address] [facility] (Lab) [address] [place], [address], 02/07/2024 21:53:57 02/07/20 24 02/07/2024 CBC/C OMPLE TE BLD COUNT W/DIF F lymphocytes, absolute count 1.16 x10'3 /uL 1.07-[address] [facility] (Lab) [address] [place], [address], 02/07/2024 21:53:57 02/07/20 24 02/07/2024 CBC/C OMPLE TE BLD COUNT W/DIF F monocytes, absolute count 0.79 x10'3 /uL 0.29-[address] [facility] (Lab) [address] [place], [address], 02/07/2024 21:53:57 02/07/20 24 02/07/2024 CBC/C OMPLE TE BLD COUNT W/DIF F eosinophils, absolute count 0.23 x10'3 /uL 0.02-[address] [facility] (Lab) [address] [place], [address], 02/07/2024 21:53:57 02/07/20 24 02/07/2024 CBC/C OMPLE TE BLD COUNT W/DIF F basophils, absolute count 0.03 x10'3 /uL 0.01-[address] [facility] (Lab) [address] [place], [address], 02/07/2024 21:53:57 02/07/20 24 02/07/2024 CBC/C OMPLE TE BLD COUNT W/DIF F immature granulocytes ,absolute 0.02 x10'3 /uL 0.00-[address] [facility] (Lab) [address] [place], [address], 02/07/2024 21:53:57 02/07/20 24 02/07/2024 CBC/C OMPLE TE BLD COUNT W/DIF F nucleated red blood cells 0.0 % -0 Not Available [facility] (Lab) [address] [place], [address], 02/07/2024 21:53:57 02/07/20 24 02/07/2024 CBC/C OMPLE TE BLD COUNT W/DIF F NRBC# 0.00 x10'3 /uL Not Available [facility] (Lab) [address] [place], [address], 02/07/2024 21:53:57 02/07/20 24 02/07/2024 CBC/C OMPLE TE BLD COUNT W/DIF F anisocytosis OCCASI ONAL Not Available [facility] (Lab) [address] [place], [address], 02/07/2024 21:53:57 02/07/20 24 02/07/2024 CBC/C OMPLE TE BLD COUNT W/DIF F poikilocytos is OCCASI ONAL Not Available [facility] (Lab) [address] [place], [address], 02/07/2024 21:53:57 02/07/20 24 02/07/2024 CBC/C OMPLE TE BLD COUNT W/DIF F hypochromia 1+ Not Available [facility] (Lab) [address] [place], [address], 02/07/2024 21:53:57 02/07/20 24 02/07/2024 CBC/C OMPLE TE BLD COUNT W/DIF F microcytosis OCCASI ONAL Not Available [facility] (Lab) [address] [place], [address], 02/07/2024 21:53:57 02/07/20 24 02/07/2024 HEMOG LOBIN A1C HA1C 7.0 % 4.0-6. 0 high Diabe elis Scree robert Crite ambreen: <5.7% Consi stent with absen ce of diabe elis 5.7-6 .4% Consi stent with incre ased risk for diabe elis (pred iabet es) >OR=6 .5% Consi stent with diabe elis REFER ENCE: Diabe elis Care 2015, 39(King ppl.1 ):s13 -s22 Not Available [facility] (Lab) [address] [place], [address], 02/07/2024 21:47:02 02/07/20 24 02/07/2024 BASIC METAB OLIC PANEL sodium 142 mmol/ L 137-14 5 Not Available [facility] (Lab) [address] [place], [address], 02/07/2024 22:11:55 02/07/20 24 02/07/2024 BASIC METAB OLIC PANEL potassium 4.1 mmol/ L 3.5-5. 1 Not Available [facility] (Lab) [address] [place], [address], 02/07/2024 22:11:55 02/07/20 24 02/07/2024 BASIC METAB OLIC PANEL chloride 110 mmol/ L 98-107 high Not Available [facility] (Lab) [address] [place], [address], 02/07/2024 22:11:55 02/07/20 24 02/07/2024 BASIC METAB OLIC PANEL carbon dioxide 22 mmol/ L 22-30 Not Available [facility] (Lab) [address] [place], [address], 02/07/2024 22:11:55 02/07/20 24 02/07/2024 BASIC METAB OLIC PANEL anion gap 14.1 mmol/ L 14-22 Not Available [facility] (Lab) [address] [place], [address], 02/07/2024 22:11:55 02/07/20 24 02/07/2024 BASIC METAB OLIC PANEL glucose 115 mg/dL 70-99 high Not Available [facility] (Lab) [address] [place], [address], 02/07/2024 22:11:55 02/07/20 24 02/07/2024 BASIC METAB OLIC PANEL BUN 33 mg/dL 8-[address] [facility] (Lab) [address] [place], [address], 02/07/2024 22:11:55 02/07/20 24 02/07/2024 BASIC METAB OLIC PANEL creatinine 1.32 mg/dL 0.66-1 [address] [facility] (Lab) [address] [place], [address], 02/07/2024 22:11:55 02/07/20 24 02/07/2024 BASIC METAB OLIC PANEL GFR 40 Refer ence Range : Ephraim ge GFR Healt hy Adult : >60 mL/mi n/1.7 3 m2 Chron ic Kidne y Disea se: 15-60 mL/mi n/1.7 3 m2 Kidne y Failu re: <15/m L/min /1.73 m2 www.n iddk. nih.g ov The MDRD study equat ion has not been valid ated in child mary ellen <18 years of age; pregn ant women ; the elder ly >85 years of age; or in some racia l or ethni c subgr oups, such as [facility] nics. Outsi de the valid ated camacho eters , estim ated GFR is less accur ate, requi ring clini brandon judgm ent on a case- by-ca se basis . Clini brandon inter preta tion for other races and ages must be made by the clini harini. The MDRD study equat ion has not been valid ated for the evalu ation of serum creat inine relat ed to nutri traci l statu s or medic ation usage . For perso ns <18 years of age, a pedia tric GFR calcu lator is avail able on the F websi te: https ://ww w.kid saige.o rg/pr ofess ional s/kdo qi/gf r_cal culat or Not Available [facility] (Lab) [address] [place], [address], 02/07/2024 22:11:55 02/07/20 24 02/07/2024 BASIC METAB OLIC PANEL calcium 9.7 mg/dL 8.4-[address] [facility] (Lab) [address] [place], [address], 02/07/2024 22:11:55 02/07/20 24 02/07/2024 LIPID PANEL cholesterol 183 mg/dL 140-19 9 NIH RYDER NSUS RECOM MENDA TION FOR TRISTEN STERO L: ADULT CHILD LOW RISK: <200 <170 BORDE RLINE : <200- 239 ----- HIGH RISK: >240 >[address] [facility] (Lab) [address] [place], [address], 02/07/2024 22:11:57 02/07/20 24 02/07/2024 LIPID PANEL triglyceride s 227 mg/dL 0-150 high NIH RYDER NSUS REPOR T RECOM MENDA TION FOR TRIGL YCERI JOHNATHON: ADULT CHILD LOW RISK: <150 ----- BODER LINE: 150-1 99 ----- HIGH RISK: >200 ----- Not [address] [facility] (Lab) [address] [place], [address], 02/07/2024 22:11:57 02/07/20 24 02/07/2024 LIPID PANEL HDL cholesterol 51 mg/dL 40- Not Available [facility] (Lab) [address] [place], [address], 02/07/2024 22:11:57 02/07/20 24 02/07/2024 LIPID PANEL LDL cholesterol, calculated 87 mg/dL 0-130 NIH RYDER NSUS REPOR T RECOM MENDA TIONS FOR LDL: ADULT CHILD LOW RISK <130 <110 (OPTI MAL LDL) <100 ----- BORDE RLINE : 130-1 59 ----- HIGH RISK: >160 >130 A TRIGL YCERI DE RESUL T >400 INVAL IDATE S THE CALCU LATIO N FOR LDL FRACT IONAT ION - THE LDL RESUL T WILL NOT BE REPOR HERNAN. Not Available [facility] (Lab) [address] [place], [address], 02/07/2024 22:11:57 02/07/20 24 02/07/2024 HEPAT IC/LI JOE PANEL alkaline phosphatase 101 U/L 38-126 Not Available [facility] (Lab) [address] [place], [address], 02/07/2024 22:12:00 02/07/20 24 02/07/2024 HEPAT IC/LI JOE PANEL alanine aminotransfe rase 28 U/L 0-35 Not Available [facility] (Lab) [address] [place], [address], 02/07/2024 22:12:00 02/07/20 24 02/07/2024 HEPAT IC/LI JOE PANEL aspartate aminotransfe rase 43 U/L 15-37 high Not Available [facility] (Lab) [address] [place], [address], 02/07/2024 22:12:00 02/07/20 24 02/07/2024 HEPAT IC/LI JOE PANEL bilirubin, total 0.50 mg/dL 0.20-[address] [facility] (Lab) [address] [place], [address], 02/07/2024 22:12:00 02/07/20 24 02/07/2024 HEPAT IC/LI JOE PANEL bilirubin, conjugated (direct) 0.02 mg/dL 0.00-[address] [facility] (Lab) [address] [place], [address], 02/07/2024 22:12:00 02/07/20 24 02/07/2024 HEPAT IC/LI JOE PANEL biliurubin,u ncong. (indirect) 0.00 mg/dL 0.00-[address] [facility] (Lab) [address] [place], [address], 02/07/2024 22:12:00 02/07/20 24 02/07/2024 HEPAT IC/LI JOE PANEL total protein 7.2 g/dL 6.3-8. [address] [facility] (Lab) [address] [place], [address], 02/07/2024 22:12:00 02/07/20 24 02/07/2024 HEPAT IC/LI JOE PANEL albumin 4.2 g/dL 3.0-4. [address] [facility] (Lab) [address] [place], [address], 02/07/2024 22:12:00 02/07/20 24 02/07/2024 HEPAT IC/LI JOE PANEL globulin 3.0 g/dL 2.6-4. [address] [facility] (Lab) [address] [place], [address], 02/07/2024 22:12:00 02/07/20 24 02/07/2024 HEPAT IC/LI JOE PANEL A/G ratio 1.4 ratio 1.0-2. [address] [facility] (Lab) [address] [place], [address], 02/07/2024 22:12:00 02/07/20 24 02/07/2024 T4 FREE free T4 0.73 NG/dL 0.78-2 [address] [facility] (Lab) [address] [place], [address], 02/07/2024 22:26:00 02/07/20 24 02/07/2024 VITAM IN D 25-HY DROXY vd25oh 61.8 NG/mL 30-100 Vitam in D Statu s: Defic ient: <20 ng/mL Insuf ficie nt: 20-29 ng/mL Suffi cient : 30-10 0 ng/mL Not Available [facility] (Lab) [address] [place], [address], 02/07/2024 22:36:55 02/07/20 24 02/07/2024 TSH thyroid-stim ulating hormone 1.200 uIU/m L 0.465- 4.[address] [facility] (Lab) [address] [place], [address], 02/07/2024 22:39:06 02/07/2002/07/2024 VITAM IN B12 (JEREMY MARLON ) vb12 >1000 pg/mL 239-[address] [facility] (Lab) [address] [place], [address], 02/07/2024 23:26:12 02/07/20 24 02/07/2024 FOLAT E, SERUM /PLAS MA folate >20.0 NG/mL 2.76-[address] [facility] (Lab) [address] [place], [address], 02/07/2024 23:26:16 02/15/20 24 02/15/2024 IRON/ TIBC PANEL total iron binding capacity 387 mcg/d L 265-[address] [facility] (Lab) [address] [place], [address], 02/15/2024 21:22:02 02/15/2002/15/2024 IRON/ TIBC PANEL % transferrin saturation 15 % 20-55 low Not Available [facility] (Lab) [address] [place], [address], 02/15/2024 21:22:02 02/15/2002/15/2024 IRON/ TIBC PANEL unsaturated iron bind capacity 329 mcg/d L 126-[address] [facility] (Lab) [address] [place], [address], 02/15/2024 21:22:02 02/15/2002/15/2024 IRON/ TIBC PANEL iron 58 mcg/d L 42-[address] [facility] (Lab) [address] [place], [address], 02/15/2024 21:22:02 04/24/20 24 02/15/2024 MEKHI TIN ferritin 11 NG/mL 11.1-[address] [facility] (Lab) [address] [place], [address], 02/15/2024 21:27:13 03/17/20 24 03/17/2024 COLOG UARD cologuard result reportable POSITI VE negati ve abnormal POSIT OWEN TEST RESUL T. A posit owen Colog uard resul t shoul d be follo wed with a colon oscop y or visua l exami natio n of the colon . The edmond l value (refe rence range ) for this assay is negat owen. TEST DESCR IPTIO N: Deputy site algor ithmi c ashlie sis of stool DNA-b max botello with hemog lobin immun oassa y. Quant itati ve value s of indiv idual bioma rkers are not repor table and are not assoc iated with indiv idual bioma rker resul t refer ence range s. Colog uard is inten ded for color ectal cance r scree robert of adult s of eithe r sex, 45 years or older , who are at [facility] for color ectal cance r (CRC) . Colog uard has been appro franci for use by the [place] FDA. The perfo rmanc e of Colog uard was estab lishe d in a cross secti onal study of [facility] adult s aged 50-84 . Colog uard perfo rmanc e in patie nts ages 45 to 49 years was estim ated by sub-g roup ashlie sis of near- age group s. Colon oscop ies perfo rmed for a posit owen resul t may find as the most clini dominic signi ficrina t lesio n: color ectal cance r [4.0% ], advan millicent adeno ma (incl uding sessi le adeola hernan polyp s great er than or equal to 1cm diame ter) [20%] or non- advan millicent adeno ma [31%] ; or no color ectal neopl maria del rosario [45%] . These estim ates are deriv ed from a prosp ectiv e cross -sect ional scree robert study of , [facility] who were scree david with both Colog uard and colon oscop y. (Azul Van al, N Engl J Med 2014; 370(1 4):12 86-12 97.) Colog uard may produ ce a false negat owen or false posit owen resul t (no color ectal cance r or preca ncero us polyp prese nt at colon oscop y follo w up). A negat owen Colog uard test resul t does not guara ntee the absen ce of CRC or advan millicent adeno ma (pre- cance r). The curre nt Colog uard scree robert inter marian is every 3 years . (Amer ican Cance r Socie ty and U.S. Multi -Soci ety Task Force ). Colog uard perfo rmanc e data in a 0 patie nt pivot al study using colon oscop y as the refer ence metho d can be acces sed at the follo wing locat ion: www.e xactl abs.c om/re martin . Addit ional descr iptio n of the Colog uard test proce ss, warni ngs and preca ution s can be found at www.c ezio edmonds.c om. Not Available [facility] [address], [place], [address], 03/23/2024 19:34:30 05/23/2005/23/2024 CBC/C OMPLE TE BLD COUNT W/DIF F white blood cells 5.6 x10'3 /uL 4.2-[address] [facility] (Lab) [address] [place], [address], 05/23/2024 19:49:33 05/23/20 24 05/23/2024 CBC/C OMPLE TE BLD COUNT W/DIF F red blood cells 4.63 x10'6 /uL 3.80-5 .20 Not Available [facility] (Lab) [address] [place], [address], 05/23/2024 19:49:33 05/23/20 24 05/23/2024 CBC/C OMPLE TE BLD COUNT W/DIF F hemoglobin 11.6 g/dL 12.0-1 5.6 low Not Available [facility] (Lab) [address] [place], [address], 05/23/2024 19:49:33 05/23/20 24 05/23/2024 CBC/C OMPLE TE BLD COUNT W/DIF F hematocrit 38.2 % 35.7-4 5.7 Not Available [facility] (Lab) [address] [place], [address], 05/23/2024 19:49:33 05/23/20 24 05/23/2024 CBC/C OMPLE TE BLD COUNT W/DIF F mean red cell volume 82.5 fL 82.0-9 9.0 Not Available [facility] (Lab) [address] [place], [address], 05/23/2024 19:49:33 05/23/20 24 05/23/2024 CBC/C OMPLE TE BLD COUNT W/DIF F mean red cell hemoglobin 25.1 pg 27.0-3 [address] [facility] (Lab) [address] [place], [address], 05/23/2024 19:49:33 05/23/20 24 05/23/2024 CBC/C OMPLE TE BLD COUNT W/DIF F mean RBC HGB concentratio n 30.4 g/dL 31.0-3 [address] [facility] (Lab) [address] [place], [address], 05/23/2024 19:49:33 05/23/20 24 05/23/2024 CBC/C OMPLE TE BLD COUNT W/DIF F red cell distribution width 16.1 % 11.8-1 5.5 high Not Available [facility] (Lab) [address] [place], [address], 05/23/2024 19:49:33 05/23/20 24 05/23/2024 CBC/C OMPLE TE BLD COUNT W/DIF F platelets 241 x10'3 /uL 150-40 0 Not Available [facility] (Lab) [address] [place], [address], 05/23/2024 19:49:33 05/23/2005/23/2024 CBC/C OMPLE TE BLD COUNT W/DIF F mean platelet volume 10.7 fL 9.0-[address] [facility] (Lab) [address] [place], [address], 05/23/2024 19:49:33 05/23/20 24 05/23/2024 CBC/C OMPLE TE BLD COUNT W/DIF F neutrophils 63.4 % 39.0-7 2.0 Not Available [facility] (Lab) [address] [place], [address], 05/23/2024 19:49:33 05/23/20 24 05/23/2024 CBC/C OMPLE TE BLD COUNT W/DIF F lymphocytes 20.8 % 16.0-4 7.0 Not Available [facility] (Lab) [address] [place], [address], 05/23/2024 19:49:33 05/23/20 24 05/23/2024 CBC/C OMPLE TE BLD COUNT W/DIF F monocytes 12.7 % 5.0-12 [address] [facility] (Lab) [address] [place], [address], 05/23/2024 19:49:33 05/23/20 24 05/23/2024 CBC/C OMPLE TE BLD COUNT W/DIF F eosinophils 2.2 % 1.0-7. 0 Not Available [facility] (Lab) [address] [place], [address], 05/23/2024 19:49:33 05/23/20 24 05/23/2024 CBC/C OMPLE TE BLD COUNT W/DIF F basophils 0.5 % 0.0-2. [address] [facility] (Lab) [address] [place], [address], 05/23/2024 19:49:33 05/23/2005/23/2024 CBC/C OMPLE TE BLD COUNT W/DIF F immature granulocytes 0.4 % 0.00-[address] [facility] (Lab) [address] [place], [address], 05/23/2024 19:49:33 05/23/20 24 05/23/2024 CBC/C OMPLE TE BLD COUNT W/DIF F neutrophils, absolute count 3.54 x10'3 /uL 1.5-8. 0 Not Available [facility] (Lab) [address] [place], [address], 05/23/2024 19:49:33 05/23/20 24 05/23/2024 CBC/C OMPLE TE BLD COUNT W/DIF F lymphocytes, absolute count 1.16 x10'3 /uL 1.07-[address] [facility] (Lab) [address] [place], [address], 05/23/2024 19:49:33 05/23/2005/23/2024 CBC/C OMPLE TE BLD COUNT W/DIF F monocytes, absolute count 0.71 x10'3 /uL 0.29-[address] [facility] (Lab) [address] [place], [address], 05/23/2024 19:49:33 05/23/20 24 05/23/2024 CBC/C OMPLE TE BLD COUNT W/DIF F eosinophils, absolute count 0.12 x10'3 /uL 0.02-[address] [facility] (Lab) [address] [place], [address], 05/23/2024 19:49:33 05/23/20 24 05/23/2024 CBC/C OMPLE TE BLD COUNT W/DIF F basophils, absolute count 0.03 x10'3 /uL 0.01-[address] [facility] (Lab) [address] [place], [address], 05/23/2024 19:49:33 05/23/20 24 05/23/2024 CBC/C OMPLE TE BLD COUNT W/DIF F immature granulocytes ,absolute 0.02 x10'3 /uL 0.00-[address] [facility] (Lab) [address] [place], [address], 05/23/2024 19:49:33 05/23/20 24 05/23/2024 CBC/C OMPLE TE BLD COUNT W/DIF F nucleated red blood cells 0.0 % -0 Not Available [facility] (Lab) [address] [place], [address], 05/23/2024 19:49:33 05/23/20 24 05/23/2024 CBC/C OMPLE TE BLD COUNT W/DIF F NRBC# 0.00 x10'3 /uL Not Available [facility] (Lab) [address] [place], [address], 05/23/2024 19:49:33 05/23/20 24 05/23/2024 IRON/ TIBC PANEL total iron binding capacity 344 mcg/d L 265-[address] [facility] (Lab) [address] [place], [address], 05/23/2024 20:03:33 05/23/20 24 05/23/2024 IRON/ TIBC PANEL % transferrin saturation 25 % 20-55 Not Available [facility] (Lab) [address] [place], [address], 05/23/2024 20:03:33 05/23/20 24 05/23/2024 IRON/ TIBC PANEL unsaturated iron bind capacity 259 mcg/d L 126-[address] [facility] (Lab) [address] [place], [address], 05/23/2024 20:03:33 05/23/20 24 05/23/2024 IRON/ TIBC PANEL iron 85 mcg/d L 42-[address] [facility] (Lab) [address] [place], [address], 05/23/2024 20:03:33 05/23/20 24 05/23/2024 MEKHI TIN ferritin 14 NG/mL 11.1-[address] [facility] (Lab) [address] [place], [address], 05/23/2024 20:31:08 07/23/20 24 07/20/2024 MAMMO , scree robert, digit al, bilat eral No observ ation record ed. [email or web address] [address], [place], [address], 07/23/2024 15:12:17 Result Notes None recorded. Problems Name Problem SNOMED Code Status Onset Date Resolution Date Notes Provider Name and Address Organization Details Recorded Time Cellulitis 787137441 Active Not Available [facility] 3 02:52:17 Abscess 878938673 Active Not Available [facility] 3 02:52:17 Backache 008421557 Active Not Available [facility] 3 02:52:17 Dry eyes 687756900 Active Not Available [facility] 3 02:52:17 Liver function tests outside reference range 746945463 Active Not Available [facility] 3 02:52:17 Mammograph y abnormal 899531827 Active Not Available [facility] 3 02:52:18 Spinal stenosis of lumbar region 06862240 Active Not Available [facility] 3 02:52:18 Radiothera py follow-up [id number] Active Not Available [facility] 3 02:52:18 Steatotic liver disease [id number] Active Not Available [facility] 3 02:52:18 Abdominal pain 31170695 Active Not Available [facility] 3 02:52:18 Abnormal gait 72313650 Active Not Available [facility] 3 02:52:18 Osteoarthr itis of knee 099920750 Active Not Available [facility] 3 02:52:18 Tremor 32698793 Active Not Available [facility] 3 02:52:18 Degenerati on of lumbar interverte bral disc 66502246 Active Not Available [facility] 3 02:52:18 Muscle weakness 67981975 Active Not Available [facility] 3 02:52:18 Dyspnea 390677765 Active Not Available [facility] 3 02:52:18 Low back pain 892939385 Active Not Available [facility] 3 02:52:18 Persistent cough 415535613 Active Not Available [facility] 3 02:52:18 Enthesopat hy of hip region 11843652 Active Not Available [facility] 3 02:52:19 Knee pain Active Not Available [facility] 3 02:52:19 Bronchitis 60483258 Active Not Available [facility] 3 02:52:19 Drusen of optic disc 17192361 Active Not Available [facility] 3 02:52:19 Depressive disorder 50870682 Active Not Available [facility] 3 02:52:19 Fracture of distal phalanx of finger 26773767 Active Not Available [facility] 3 02:52:19 Arthritis 4916550 Active Not Available [facility] 3 02:52:19 Osteoarthr itis 276740538 Active Not Available [facility] 3 02:52:19 Hypothyroi dism 90544082 Active Not Available [facility] 3 02:52:19 Eczema 99448590 Active Not Available [facility] 3 02:52:19 Paronychia of finger 416920585 Active Not Available [facility] 3 02:52:20 Pain of hip region 40195784 Active Not Available [facility] 3 02:52:20 Cough 87684346 Active Not Available [facility] 3 02:52:20 Upper respirator y infection 12326312 Active Not Available [facility] 3 02:52:20 Hyperlipid emia 05722203 Active Not Available [facility] 3 02:52:20 Intertrigo 05539866 Active Not Available [facility] 3 02:52:20 Essential hypertensi on 35419664 Active Not Available [facility] 3 02:52:20 Diarrhea 30196554 Active Not Available [facility] 3 02:52:21 Chronic cough 67981607 Active Not Available [facility] 3 02:52:21 Urinary tract infectious disease 56354952 Active Not Available [facility] 3 02:52:21 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 08224401 Active Not Available [facility] 3 02:52:21 Paronychia 99760045 Active Not Available [facility] 3 02:52:21 Posterior rhinorrhea 89537837 Active Not Available [facility] 3 02:52:21 Heart murmur 66755811 Active Not Available [facility] 3 02:52:22 Neoplasm of uncertain behavior of skin 08340531 Active Not Available [facility] 3 02:52:22 Diabetes mellitus 79278084 Active 2017 Not Available [facility] 3 02:52:21 Body mass index 30+ - obesity 212133086 Active 2018 Not Available [facility] 3 02:52:17 Allergic rhinitis 74875014 Active 2018 Not Available [facility] 3 02:52:21 Obstructiv e sleep apnea syndrome 41056810 Active 2018 Not Available [facility] 3 02:52:21 Asthma 585258416 Active 2019 Not Available [facility] 3 02:52:18 Aortic valve stenosis 55046822 Active 2020 Not Available [facility] 3 02:52:20 Well controlled type 2 diabetes mellitus 030456701 Active 2022 Aishwarya Rodriguez MD [address], [address], [place], [address] , [facility] 3 15:11:37 Pain of left knee joint 6472967542006 07 Active 2022 EPIFANIO Montano, [facility] 3 14:56:41 Type 2 diabetes mellitus without complicati on 023046428 Active 2022 Amisha Monique MD [address], [address], [place], [address] , [facility] 3 14:12:06 Serum creatinine above reference range 789865444 Active 2022 Amisha Monique MD [address], [address], [place], [address] , [facility] 3 09:07:15 Chronic diarrhea 780059746 Active 2022 Amisha Monique MD [address], [address], [place], [address] , [facility] 3 19:03:03 Pain of left shoulder joint 5450921909188 9109 Active 2022 EPIFANIO Jorgensen, [facility] 3 14:11:37 Vitamin D deficiency 07473101 Active 2022 Amisha Monique MD [address], [address], [place], [address] , [facility] 3 14:15:00 Chronic kidney disease 361631826 Active 2022 Aishwarya Rodriguez MD [address], [address], [place], [address] , [facility] 3 12:14:26 Dyslipidem ia 223926154 Active 2022 Aishwarya Rodriguez MD [address], [place], [address] , [facility] 3 12:25:07 Osteoarthr itis of left knee joint 3822883460340 09 Active 2022 Rea Meadows Gilbert null, [place] - [facility] 3 15:01:20 Restless legs syndrome 10447502 Active 2023 Amisha Monique MD [address], [place], [address] , [facility] 4 19:12:45 Cobalamin deficiency 003276944 Active 2023 Amisha Monique MD [address], [place], [address] , [facility] 4 14:20:08 Dyspnea on exertion 17000645 Active 2023 Amisha Monique MD [address], [place], [address] , [facility] 4 14:24:41 Microcytic anemia 079734719 Active 2023 Amisha Monique MD [address], [place], [address] , [facility] 4 17:45:21 Iron deficiency anemia 17681584 Active 2023 Amisha Monique MD [address], [place], [address] , [facility] [employer] 4 09:59:21 Pain of multiple joints 76805222 Active 2023 OSVALDO Pfeiffer [address] [facility], [facility] [address], [place], [address] , [facility] [employer] 16:26:47 Problem Notes None recorded. Procedures Surgical History Date Name Laterality Status Provider Name and Address Organization Details Recorded Time 11/08/19 24 Transitional_Care_ Management completed Renetta Bourgeois RN [facility] [employer] 11/08/2023 17:04:27 cholecystectomy completed Not Available [facility] 12/22/2022 02:45:21 Heart Catheterization completed Not Available [facility] 12/22/2022 02:45:21 Ablation completed Not Available [facility] 12/22/2022 02:45:21 colonoscopy completed Not Available [facility] 12/22/2022 02:45:21 oophorectomy completed Not Available [facility] 12/22/2022 02:45:21 Hysterectomy completed Not Available [facility] 12/22/2022 02:45:21 Wrist arthroscopy/surger y completed Not Available [facility] 12/22/2022 02:45:21 Tonsillectomy completed Not Available [facility] 12/22/2022 02:45:21 Cataract Surgery completed Not Available [facility] 12/22/2022 02:45:21 Knee Replacement completed Not Available [facility] 12/22/2022 02:45:21 Imaging Results None recorded. Procedure Notes None recorded. Medical Equipment None Reported. Allergies No known drug allergies Medications Name Sig Start Date Stop Date Status Note LastModified by Organization Details LastModified Time Prescript ion - New active Not Available Not Available No t Available losartan 50 mg tablet TAKE 2 TABLETS DAILY active Not Available Not Available No t Available quetiapin e 25 mg tablet TAKE 1 TABLET AT BEDTIME active Not Available Not Available No t Available celecoxib 200 mg capsule 09/01 completed Not Available Not Available Not Available cyclobenz aprine 10 mg tablet 09/01 completed Not Available Not Available Not Available amoxicill in 500 mg capsule Take 1 capsule every 12 hours by oral route for 5 days. active Not Available Not Available No t Available atorvasta tin 40 mg tablet 08/17 completed Not Available Not Available Not Available metformin 500 mg tablet active Not Available Not Available Not Available bupropion HCl SR 150 mg tablet,12 hr sustained -release Take 1 tablet every day by oral route. 06/20 completed Not Available Not Available Not Available Xylocaine with Epinephri ne 2 %-1:100,0 00 injection solution 1 ml SC x 1 12/[address] [phone] Not Available Not Available Not Available levothyro xine 137 mcg tablet Take 1 tablet every day by oral route. active Not Available Not Available No t Available Unithroid 88 mcg tablet TAKE 1 TABLET BY MOUTH EVERY DAY IN THE MORNING 05/18 completed Not Available Not Available Not Available Proctocor t 30 mg rectal supposito ry Insert 1 supposit ory twice a day by rectal route for 14 days. active Not Available Not Available No t Available cetirizin e 10 mg tablet Take 1 tablet every day by oral route for 30 days. 06/26 completed Not Available Not Available Not Available azithromy jannet 250 mg tablet TK 2 TS PO ON DAY 1, THEN TK 1 T PO D FOR 4 DAYS active Not Available Not Available No t Available tizanidin e 4 mg tablet TAKE 1 TABLET BY MOUTH THREE TIMES DAILY NEEDED FOR MUSCLE SPASMS active Not Available Not Available No t Available benzonata te 200 mg capsule Take 1 capsule 3 times a day by oral route as needed for 10 days. active Not Available Not Available No t Available tolterodi ne ER 4 mg capsule,e xtended release 24 hr TAKE 1 CAPSULE DAILY active Not Available Not Available No t Available hydrocodo ne 5 mg-acetam inophen 325 mg tablet 1/2 to 1 tab po qhs prn 09/01 completed Not Available Not Available Not Available Levaquin 750 mg tablet Take 1 tablet every day by oral route for 5 days. 09/03 completed Not Available Not Available Not Available prednison e 20 mg tablet 2 po qday with food x 5 days active Not Available Not Available No t Available dextroamp hetamine- amphetami ne 10 mg tablet 1 po qAM active Not Available Not Available Not Available Anucort-H C 25 mg supposito ry Insert 1 supposit ory twice a day by rectal route for 14 days. 11/15 completed Not Available Not Available Not Available pimecroli mus 1 % topical cream APPLY THIN LAYER TOPICALL Y TO THE AFFECTED AREA TWICE DAILY. RUB IN GENTLY AND COMPLETE LY USE NEEDED 06/22 completed Not Available Not Available Not Available clobetaso l 0.05 % topical cream APPLY A THIN LAYER TO THE AFFECTED AREA(S) BY TOPICAL ROUTE 2 TIMES PER DAY for up to 14 days at at time active Not Available Not Available No t Available Aspir-Low 81 mg tablet,de layed release Take 1 tablet every day by oral route as directed . 04/01 completed Not Available Not Available Not Available amlodipin e 5 mg tablet TAKE 1 TABLET BY MOUTH EVERY DAY active Not Available Not Available No t Available ciproflox acin 500 mg tablet TAKE 1 TABLET BY MOUTH TWICE A DAY x 7 days active Not Available Not Available No t Available peg-elect rolyte solution 420 gram oral solution MIX AND DRINK BY MOUTH DIRECTED FOR 1 DOSE. active Not Available Not Available No t Available omeprazol e 40 mg capsule,d elayed release TAKE 1 CAPSULE BY MOUTH DAILY 05/18 completed Not Available Not Available Not Available liothyron ine 5 mcg tablet TAKE 1 TABLET BY MOUTH TWICE DAILY IN THE MORNING AND AT BEDTIME active Not Available Not Available No t Available tramadol 50 mg tablet TAKE 1 TABLET BY MOUTH EVERY 4 TO 6 HOURS NEEDED 12/31 completed Not Available Not Available Not Available quetiapin e 100 mg tablet TAKE 1.5 TABLETS BY MOUTH EVERY NIGHT AT BEDTIME active Not Available Not Available No t Available triamcino lone acetonide 0.1 % topical cream apply bid prn active Not Available Not Available No t Available Protopic 0.1 % topical ointment APPLY A THIN LAYER TO THE AFFECTED AREA(S) BY TOPICAL ROUTE 2 TIMES PER DAY ; RUB IN GENTLY AND COMPLETE LY 11/17 completed Not Available Not Available Not Available nystatin- triamcino lone 100,000 unit/gram -0.1 % topical ointment apply to affected area bid x 2-4 weeks prn 03/09 completed Not Available Not Available Not Available losartan 100 mg-hydroc hlorothia zide 25 mg tablet active Not Available Not Available No t Available ropinirol e 0.25 mg tablet TAKE 1 TABLET BY MOUTH THREE TIMES DAILY active Not Available Not Available No t Available dicyclomi ne 20 mg tablet 1 po q6 hours prn abd pain 12/17 completed Not Available Not Available Not Available Kenalog 10 mg/mL suspensio n for injection in office 11/[address] [facility]: [id number] 02-10 Not Available Not Available Not Available dexametha sone 1 mg tablet Take 1 tablet as needed by oral route at bedtime for 1 day. active take dexa tablet at 10 pm night before 8 am cortisol testing Not Available Not Available Not Available amlodipin e 10 mg tablet TAKE 1 TABLET BY MOUTH ONCE DAILY 04/01 completed /2 tab po qday MK 02/19/21 Not Available Not Available Not Available benzonata te 100 mg capsule Take 1 capsule every day by oral route as needed. 11/15 completed Not Available Not Available Not Available doxycycli ne monohydra te 100 mg capsule TAKE 1 CAPSULE BY MOUTH TWICE DAILY FOR 10 DAYS active Not Available Not Available No t Available cephalexi n 500 mg capsule TAKE 1 CAPSULE BY MOUTH EVERY 6 HOURS FOR 3 DAYS active Not Available Not Available No t Available paroxetin e 20 mg tablet TAKE 1 TABLET BY MOUTH ONCE DAILY 04/01 completed Not Available Not Available Not Available simvastat in 20 mg tablet TAKE 1 TABLET DAILY active Not Available Not Available No t Available erythromy jannet 5 mg/gram (0.5 %) eye ointment APPLY 1 CM RIBBON INTO THE LOWER CONJUNCT IVAL SAC(S) IN THE AFFECTED EYE(S) BY OPHTHALM IC ROUTE 3 TIMES PER DAY for 7 days 04/14 completed Not Available Not Available Not Available oseltamiv ir 75 mg capsule 1 po qday 12/17 completed Not Available Not Available Not Available levothyro xine 125 mcg tablet 09/01 completed Not Available Not Available Not Available ropinirol e 0.5 mg tablet 1 po qhs active Not Available Not Available Not Available nystatin 100,000 unit/gram topical cream APPLY TO THE AFFECTED AREA(S) BY TOPICAL ROUTE 2 TIMES PER DAY prn rash 03/15 completed Not Available Not Available Not Available polymyxin B sulfate 10,000 unit-trim ethoprim 1 mg/mL eye drops INSTILL 1 DROP INTO AFFECTED EYE(S) BY OPHTHALM IC ROUTE EVERY 6 HOURS x 7 days 04/12 completed Not Available Not Available Not Available levothyro xine 150 mcg tablet TAKE ONE TABLET ALTERNAT ING ONE-HALF TABLET DAILY 03/03 completed Not Available Not Available Not Available Unithroid 100 mcg tablet TAKE 1 TABLET BY MOUTH EVERY DAY IN THE MORNING active Not Available Not Available No t Available gabapenti n 300 mg capsule TAKE ONE CAPSULE BY MOUTH TWICE DAILY 12/17 completed Not Available Not Available Not Available omeprazol e 20 mg capsule,d elayed release active Not Available Not Available Not Available cephalexi n 500 mg tablet Take 1 tablet twice a day by oral route for 7 days. 12/18 completed Not Available Not Available Not Available monteluka st 10 mg tablet 1 po qday active Not Available Not Available No t Available aspirin 81 mg tablet Take by oral route. 2019 active Not Available Not Available Not Avai lable cyanocoba marlon (vit B-12) 1,000 mcg sublingua l tablet Place 1 tablet every day by sublingu al route in the morning for 90 days. active Not Available Not Available No t Available hydrochlo rothiazid e 25 mg tablet TAKE 1 TABLET DAILY 07/29 completed Not Available Not Available Not Available mupirocin 2 % topical ointment APPLY THIN LAYER TOPICALL Y TO AFFECTED AREA TWICE DAILY 2022 active Not Available Not Available Not Avai lable clobetaso l 0.05 % topical ointment APPLY A THIN LAYER TO THE AFFECTED AREA(S) BY TOPICAL ROUTE 2 TIMES PER DAY 07/02 completed Not Available Not Available Not Available nystatin 100,000 unit/gram topical powder APPLY TO AFFECTED AREA DAILY active Not Available Not Available No t Available Levoxyl 112 mcg tablet TAKE 1 TABLET DAILY active Not Available Not Available No t Available levofloxa jannet 500 mg tablet Take 1 tablet every 24 hours by oral route for 7 days. 12/31 completed Not Available Not Available Not Available methylpre dnisolone 4 mg tablets in a dose pack TAKE BY MOUTH DIRECTED ON INSIDE OF PACKAGE 08/17 completed Not Available Not Available Not Available timolol maleate 0.5 % eye drops INSTILL ONE DROP INTO BOTH EYES TWICE DAILY active Not Available Not Available No t Available ketoconaz ole 2 % topical cream APPLY TO THE AFFECTED AREA AND IMMEDIAT E SURROUND ING AREA DAILY UNTIL SYMTOMS RESOLVED active Not Available Not Available No t Available cefdinir 300 mg capsule TAKE 1 CAPSULE BY MOUTH EVERY 12 HOURS FOR 3 DAYS active Not Available Not Available No t Available losartan 100 mg tablet TAKE 1 TABLET DAILY 04/01 completed Not Available Not Available Not Available piroxicam 20 mg capsule TAKE 1 CAPSULE BY MOUTH DAILY NEEDED active Not Available Not Available No t Available fluticaso ne propionat e 50 mcg/actua tion nasal spray,sondra pension 2 sprays each nostril qd 08/17 completed Not Available Not Available Not Available metformin ER 500 mg tablet,ex tended release 24 hr half a tablet twice daily with meals x 90 days 2024 active Not Available Not Available Not Avai lable doxycycli ne hyclate 100 mg tablet TAKE 1 TABLET BY MOUTH TWICE DAILY FOR 7 DAYS 02/06 completed Not Available Not Available Not Available dicyclomi ne 10 mg capsule TAKE 1 CAPSULE BY MOUTH TWICE DAILY NEEDED FOR CRAMPS active Not Available Not Available No t Available Hibiclens 4 % topical liquid wash skin daily 09/03 completed Not Available Not Available Not Available amoxicill in 500 mg-potass ium clavulana te 125 mg tablet 11/15 completed Not Available Not Available Not Available oxycodone 5 mg tablet TAKE 1 TABLET BY MOUTH EVERY 6 HOURS NEEDED FOR PAIN active Not Available Not Available No t Available Bactrim DS 800 mg-160 mg tablet Take 1 tablet every 12 hours by oral route for 10 days. 01/04 completed Not Available Not Available Not Available escitalop brennan 10 mg tablet TAKE ONE TABLET BY MOUTH ONCE DAILY 03/09 completed Not Available Not Available Not Available Vitamin D3 25 mcg (1,000 unit) capsule Take 1 capsule every day by oral route. 08/29 completed Not Available Not Available Not Available Vigamox 0.5 % eye drops 08/17 completed Not Available Not Available Not Available cholestyr amine (with sugar) 4 gram oral powder DISSOLVE ONE SCOOP OF POWDER AND TAKE BY MOUTH TWICE DAILY NEEDED 01/04 completed Not Available Not Available Not Available rosuvasta tin 20 mg tablet 1 po qhs active Not Available Not Available Not Available rosuvasta tin 40 mg tablet TAKE 1 TABLET BY MOUTH DAILY active Not Available Not Available No t Available bupropion HCl XL 150 mg 24 hr tablet, extended release Take 1 tablet every day by oral route. 09/03 completed Not Available Not Available Not Available Clobex 0.05 % shampoo APPLY A THIN LAYER BY TOPICAL ROUTE ONCE DAILY TO DRY SCALP LEAVE IN PLACE 15 MIN. THEN LATHER AND RINSE. 07/02 completed Not Available Not Available Not Available duloxetin e 30 mg capsule,d elayed release 3 po qday 11/23 completed Not Available Not Available Not Available duloxetin e 60 mg capsule,d elayed release Take 1 capsule every day by oral route. 07/26 completed Not Available Not Available Not Available melatonin 04/29 completed Not Available Not Available Not Available Calcium 600 06/20 completed Not Available Not Available Not Available multivita min 05/10 completed Not Available Not Available Not Available ProAir HFA 90 mcg/actua tion aerosol inhaler Inhale 2 puffs every 4 hours by inhalati on route as directed . 2020 active Not Available Not Available Not Avai lable metformin ER 500 mg 24 hr tablet,ex tended release (gastric retention ) active Not Available Not Available Not Available Advair HFA 45 mcg-21 mcg/actua tion aerosol inhaler 2 puffs bid 12/31 completed Not Available Not Available Not Available Advair HFA 230 mcg-21 mcg/actua tion aerosol inhaler USE 2 INHALATI ONS TWICE A DAY 2023 active Not Available Not Available Not Avai lable quetiapin e 50 mg tablet TAKE 1 TABLET BY MOUTH EVERY NIGHT AT BEDTIME active Not Available Not Available No t Available Symbicort 80 mcg-4.5 mcg/actua tion HFA aerosol inhaler INHALE TWO PUFFS BY MOUTH TWICE DAILY 01/04 completed Not Available Not Available Not Available M-M-R II (PF) 1,000-12, 500 TCID50/0. 5 mL subcutane ous solution 06/26 completed Not Available Not Available Not Available Durezol 0.05 % eye drops 08/17 completed Not Available Not Available Not Available levothyro xine 150 mcg capsule Take 1 capsule every day by oral route. 06/20 completed Not Available Not Available Not Available Suprep Bowel Prep Kit 17.5 gram-3.13 gram-1.6 gram oral solution 11/15 completed Not Available Not Available Not Available D3 DOTS 50 mcg (2,000 unit) tablet Take 1 tablet every day by oral route as directed . 2020 active Not Available Not Available Not Avai lable ropivacai ne (PF) 5 mg/mL (0.5 %) injection solution in office 11/08 completed Not Available Not Available Not Available melatonin 10 mg tablet Take by oral route. 2020 active Not Available Not Available Not Avai lable Myrbetriq 25 mg tablet,ex tended release Take 1 tablet every day by oral route. 08/17 completed Not Available Not Available Not Available EpiCeram ER 09/03 completed Not Available Not Available Not Available Ilevro 0.3 % eye drops,sondra pension 09/01 completed Not Available Not Available Not Available Stimulant Laxative Plus 8.6 mg-50 mg tablet TAKE 1 TABLET BY MOUTH TWICE DAILY active Not Available Not Available No t Available Trulicity 0.75 mg/0.5 mL subcutane ous pen injector 0.5 ml sc qweek 05/18 completed Not Available Not Available Not Available Fluarix Quad 5626-5074 (PF) 60 mcg (15 mcg x 4)/0.5 mL IM syringe active Not Available Not Available Not Available Accu-Chek Guide test strips Take 1 strip twice a day by miscell. route before meals for 30 days. 06/22 completed Not Available Not Available Not Available Fluzone High-Dose (PF) 180 mcg/0.5 mL intramusc ular syringe 08/17 completed Not Available Not Available Not Available Accu-Chek Fastclix Lancet Drum USE TO CHECK GLUCOSE TWICE DAILY 06/22 completed Not Available Not Available Not Available Fluzone High-Dose (PF) 180 mcg/0.5 mL intramusc ular syringe 08/17 completed Not Available Not Available Not Available Fluzone High-Dose (PF) 180 mcg/0.5 mL intramusc ular syringe active Not Available Not Available Not Available Fluzone High-Dose Quad 2020-21 (PF) 240 mcg/0.7 mL IM syringe PHARMACI ST ADMINIST ERED IMMUNIZA TION ADMINIST ERED AT TIME OF DISPENSI NG active Not Available Not Available No t Available Vitals Date Recorded Body height Body mass index (BMI) Body weight Heart rate Oxygen saturation Oxygen saturation in Arterial blood by Pulse oximetry Systolic And Diastolic Provider Name and Address Organization Details Last Updated DateTime 4 160.02 cm 34.7 kg/m2 85474.1 g 106 /min 97 % 97 % 146/70 mm[Hg] YOLANDA Winter [facility] 4 14:08:21 Date Recorded Body height Body mass index (BMI) Body weight Body temperature Heart rate Oxygen saturation Oxygen saturation in Arterial blood by Pulse oximetry Systolic And Diastolic Provider Name and Address Organization Details Last Updated DateTime 4 160.02 cm 34.9 kg/m2 88691.7 g 99 [degF] 91 /min 97 % 97 % 138/80 mm[Hg] YOLANDA Campos [facility] 4 14:44:00 Date Recorded Body height Provider Name an d Address Organization Details Last Updated DateTime 05/23/2024 160.02 cm YOLANDA Winter [facility] 05/23/2024 15:40:14 Date Recorded Body height Body mass index (BMI) Body weight Body temperature Heart rate Oxygen saturation Oxygen saturation in Arterial blood by Pulse oximetry Systolic And Diastolic Provider Name and Address Organization Details Last Updated DateTime 4 160.02 cm 34.7 kg/m2 79931.1 g 97.2 [degF] 73 /min 97 % 97 % 138/82 mm[Hg] Renetta Bourgeois RN [facility] 4 16:17:08 Social History Question Answer Notes LastModified by Organizat ion Details LastModified Time Tobacco Smoking Status Never Smoker Not Available [facility] 12/22/2022 02:37:36 Do You Have An Advance Directive? No [id number].[id number] Information not available 12/22/2022 Are You Blind Or Do You Have Difficulty Seeing? No MIGRATION.016868 5585 Information not available 12/22/2022 What Is Your Level Of Caffeine Consumption? Moderate MIGRATION.752973 7964 Information not available 12/22/2022 How Much Tobacco Do You Chew? None MIGRATION.962584 1910 Information not available 12/22/2022 In The 14 Days Before Symptom Onset, Have You Had Close Contact With A Laboratory-confirm ed COVID-19 While That Case Was Ill? No MIGRATION.538219 1964 Information not available 12/22/2022 In The 14 Days Before Symptom Onset, Have You Had Close Contact With A Person Who Is Under Investigation For COVID-19 While That Person Was Ill? No MIGRATION.239756 2580 Information not available 12/22/2022 Are You Deaf Or Do You Have Serious Difficulty Hearing? No MIGRATION.196105 0672 Information not available 12/22/2022 What Type Of Diet Are You Following? REGULAR MIGRATION.882610 7550 Information not available 12/22/2022 Which Illicit Or Recreational Drugs Have You Used? None MIGRATION.767188 0721 Information not available 12/22/2022 What Was The Date Of Your Most Recent Tobacco Screening? 06/17/2021 MIGRATION.497665 1453 Information not available 12/22/2022 Do You Have Any Pets? Yes MIGRATION.960937 4344 Information not available 12/22/2022 What Is Your Relationship Status? MIGRATION.609916 9594 Information not available 12/22/2022 How Much Tobacco Do You Smoke? No MIGRATION.047942 2335 Information not available 12/22/2022 Has Tobacco Cessation Counseling Been Provided? No MIGRATION.136491 6803 Information not available 12/22/2022 Have You Recently Traveled Abroad? No MIGRATION.786097 4581 Information not available 12/22/2022 Do You Have Difficulty Walking Or Climbing Stairs? No MIGRATION.421543 0285 Information not available 12/22/2022 Sex: Female Functional Status Question Answer Note LastModified by Organizat ion Details LastModified Time Do you use any illicit or recreational drugs? No MIGRATION.397614 2860 Information not available 12/22/2022 What is your level of alcohol consumption? None MIGRATION.885472 7779 Information not available 12/22/2022 Do you or have you ever used smokeless tobacco? Never used smokeless tobacco MIGRATION.758892 9260 Information not available 12/22/2022 Do you have transportation difficulties? No MIGRATION.075573 1436 Information not available 12/22/2022 Are you able to walk independently without assistance or assistive devices? YESWOREST MIGRATION.752951 4307 Information not available 12/22/2022 Do you have difficulty doing errands alone? No MIGRATION.280644 7683 Information not available 12/22/2022 Are you able to care for yourself independently? Yes MIGRATION.556989 4976 Information not available 12/22/2022 What is your occupation? Retired MIGRATION.596178 8883 Information not available 12/22/2022 Do you have difficulty dressing, bathing, grooming, or toileting? No MIGRATION.708257 5027 Information not available 12/22/2022 Do you or have you ever used e-cigarettes or vape? Never used electronic cigarettes MIGRATION.180387 8926 Information not available 12/22/2022 What is your exercise level? Occasional MIGRATION.683845 7477 Information not available 12/22/2022 Mental Status Question Answer Note LastModified by Organizat ion Details LastModified Time Do you have difficulty concentrating, remembering or making decisions? No MIGRATION.[id number] 6 Information not available 12/22/2022 Family History Relationship Description Onset Age of this Age Resolved Age Notes LastModified by Organization Details LastModified Time Father Heart disease MIGRATION.005 [id number] Not available 12/22/2022 02:45:24 Father Cerebrovascu lar accident MIGRATION.909 [id number] Not available 12/22/2022 02:45:25 Father Diabetes mellitus MIGRATION.595 [id number] Not available 12/22/2022 02:45:25 Mother Parkinson's disease MIGRATION.944 [id number] Not available 12/22/2022 02:45:25 Mother Diabetes mellitus MIGRATION.290 [id number] Not available 12/22/2022 02:45:25 Father Family history of malignant neoplasm [email or web address] Not available 2022 15:09:07 Father Hypertensive disorder [email or web address] Not available 2022 15:09:22 Mother Hypertensive disorder [email or web address] Not available 2022 15:09:22 Notes:No colon or ovary canc er Medical History Condition Response EYE PROBLEMS Y THYROID DISEASE Y ARTHRITIS Y SKIN PROBLEMS Y DIABETES, TYPE Y HEART DISEASE/HEART PROBLEMS Y USE OF NSAIDS Y LIVER DISEASE Y HYPERTENSION Y HIGH CHOLESTEROL / HYPERLIPIDEMIA Y Gynecological History Statement/Question Response Dislike of Light during Menstrual Headac he N Menses Monthly N Current Control Method Menopause Breast Problems no Obstetrics History GPAL:G 0 P 0 0 0 0 Immunizations Vaccine Type Date Status Note Provider Nam e and Address Organization Details Recorded Time Influenza, split virus, quadrivalent, preservative 2 completed Not Available [facility] 12/22/2022 03:00:03 COVID-19, mRNA, LNP-S, PF, 30 mcg/0.3 mL dose 2 completed [place] CMA null, [facility] 09/19/2023 14:42:17 Influenza, split virus, quadrivalent, preservative 0 completed [place] CMA null, [facility] 09/19/2023 14:42:17 Influenza, split virus, quadrivalent, preservative 8 completed [place] CMA null, [facility] 09/19/2023 14:42:17 Influenza, split virus, quadrivalent, preservative 7 completed [place] CMA null, [facility] 09/19/2023 14:42:17 Influenza, split virus, quadrivalent, preservative 6 completed [place] CMA null, [facility] 09/19/2023 14:42:17 Influenza, split virus, quadrivalent, preservative 6 completed Not Available [facility] 12/22/2022 03:00:04 Influenza, high-dose, quadrivalent, PF 1 completed Not Available [facility] 12/22/2022 03:00:04 Pneumococcal conjugate PCV 13 8 completed [place] CMA null, [facility] 09/19/2023 14:42:17 pneumococcal polysaccharide PPV23 7 completed Not Available [facility] 12/22/2022 03:00:04 pneumococcal polysaccharide PPV23 5 completed Not Available [facility] 12/22/2022 03:00:04 Past Encounters Encounter ID Performer Location Encounter Start Date Encounter Closed Date Diagnosis/Indication Diagnosis SNOMED-CT Code Diagnosis ICD10 Code Diagnosis IMO Codes Diagnosis Note [id number] LEIDY Gomez [facility] [place] [address] [facility] [address] [place] [address] 01/01/2021 00:00:00 01/01/2021 15:05:23 [id number] Amisha Monique MD [facility] [place] [address] [place] [address] [address] [place] [address] 02/19/2021 00:00:00 02/19/2021 08:38:33 [id number] Amisha Monique MD [facility] [place] [address] [place] [address] [address] [place] [address] 04/01/2021 00:00:00 04/22/2021 09:51:18 [id number] Amisha Monique MD [facility] Primary [place] [address] [place] [address] [address] [place] [address] 04/21/2021 00:00:00 04/21/2021 20:27:22 [id number] Amisha Monique MD [facility] Primary [place] [address] [place] [address] [address] [place] [address] 04/24/2021 00:00:00 04/24/2021 21:23:47 [id number] Amisha Monique MD [facility] Primary [place] [address] [place] [address] [address] [place] [address] 04/29/2021 00:00:00 04/29/2021 14:32:15 [id number] Amisha Monique MD [facility] [place] [address] [place] [address] [address] [place] [address] 05/06/2021 00:00:00 05/06/2021 18:34:06 [id number] Aishwarya Rodriguez MD [facility] Endo [place] [address] [facility] [address] [place] [address] 05/18/2021 00:00:00 05/18/2021 14:36:08 [id number] [facility] [place] [address] [place] [address] 06/17/2021 00:00:00 06/17/2021 14:45:43 [id number] Amisha Monique MD [facility] Primary [facility] [place] [address] [place] [address] 07/28/2021 00:00:00 07/28/2021 18:19:21 [id number] Amisha Monique MD [facility] Primary Care [facility] [address] [place] [address] 08/21/2021 00:00:00 08/21/2021 20:14:54 [id number] Amisha Monique MD [facility] Primary Care [facility] [address] [place] [address] 09/08/2021 00:00:00 09/14/2021 10:57:19 [id number] Amisha Monique MD [facility] Primary Care [facility] [address] [facility] [address] [facility] [place] [address] 10/19/2021 00:00:00 10/19/2021 14:34:17 [id number] Amisha Monique MD [facility] Primary [facility] [address] [place] [address] 10/29/2021 00:00:00 10/29/2021 17:10:01 [id number] Aishwarya Rodriguez MD [facility] [place] [address] [place] [address] 11/17/2021 00:00:00 11/17/2021 14:29:02 [id number] Amisha Monique MD [facility] [place] [address] [place] [address] 12/16/2021 00:00:00 12/20/2021 21:28:34 [id number] [facility] [place] [address] [place] [address] 12/22/2021 00:00:00 12/22/2021 14:24:18 [id number] Amisha Monique MD [facility] Primary [facility] [place] [address] [place] [address] 12/22/2021 00:00:00 12/22/2021 16:19:24 [id number] Amisha Monique MD [facility] [place] [address] [place] [address] 01/13/2022 00:00:00 01/13/2022 13:04:28 [id number] TATIANNA Orozco [facility] [place] [address] [place] [address] 02/12/2022 00:00:00 02/12/2022 12:18:37 [id number] TATIANNA Orozco [facility] Primary [facility] [place] [address] [place] [address] 03/05/2022 00:00:00 03/05/2022 10:06:19 [id number] Amisha Monique MD [facility] Primary [facility] [place] [address] [place] [address] 03/15/2022 00:00:00 03/15/2022 12:23:30 [id number] Amisha Monique MD [facility] Primary [place] [address] [place] [address] 03/30/2022 00:00:00 04/21/2022 11:05:00 [id number] Amisha Monique MD [facility] Primary Care [place] [address] [place] [address] 04/21/2022 00:00:00 04/22/2022 08:04:02 [id number] Aishwarya Rodriguez MD [facility] [place] [address] [place] [address] 05/18/2022 00:00:00 05/18/2022 15:34:22 [id number] LEIDY Gomez [facility] Primary [place] [address] [facility] [address] [place] [address] 06/09/2022 00:00:00 06/09/2022 17:40:02 [id number] Amisha Monique MD [facility] Primary Care [place] [address] [facility] [address] [place] [address] 07/29/2022 00:00:00 07/29/2022 08:40:05 [id number] Amisha Monique MD [facility] Primary Care [place] [address] [place] [address] [address] [place] [address] 08/18/2022 00:00:00 08/18/2022 16:26:34 [id number] Aishwarya Rodriguez MD [facility] [place] [address] [place] [address] 08/23/2022 00:00:00 08/23/2022 19:45:45 [id number] Amisha Monique MD [facility] Primary Care [place] [address] [place] [address] [address] [place] [address] 10/06/2022 00:00:00 10/06/2022 14:21:31 [id number] Andrés Hammond MD [facility] [place] [address] [facility] [address] [place] [address] 12/31/2022 14:48:25 01/03/2023 09:42:58 Pain of left knee joint 4492420370 09525 M25.562 [id number] Amisha Monique MD [facility] Primary Care [place] [address] [place] [address] [address] [place] [address] 01/04/2023 13:55:48 01/04/2023 14:34:40 Essential hypertension 41420013 I10 stableamlo dipine 5 mg daily and losartan/h ctz 100/25 mg dailyf/u in 3 months Type 2 johnny betes mellitus without complication 391247379 E11.9 due for labs from endocrinol ogy Dr. Rodriguez Hypothyroidism 78238597 E03.9 [id number] Amisha Monique MD [facility] Primary Care [facility] [address] [facility] [address] [facility] [place] [address] 02/21/2023 15:14:56 02/21/2023 16:32:48 [id number] Brett RobertsonGOMEZ espinoP [facility] Primary Care [facility] [address] [facility] [address] [facility] [place] [address] 03/04/2023 12:27:01 03/04/2023 15:24:32 [id number] Andrés Hammond MD [facility] [place] [address] [place] [address] 04/08/2023 14:01:13 04/08/2023 15:02:22 Pain of left shoulder joint 8645313631 6596948 M25.512 [id number] Amisha Monique MD [facility] Care [address] [place] [address] 06/14/2023 13:58:14 06/14/2023 14:31:35 Diabetes mellitus 69333775 E11.9 check labs Essential hypertension 36954586 I10 stableamlo dipine 5 mg daily and losartan/h ctz 100/25 mg dailyf/u in 3 months Hyperlipidemia 65467553 E78.5 Z79.899 Hypothyroidism 58537123 E03.9 Vitamin D deficiency 347 71333 E55.9 [id number] Amisha Monique MD [facility] Primary Care [address] [place] [address] 06/16/2023 15:11:58 11/23/2023 04:03:44 [id number] Aishwarya Rodriguez MD [facility] [place] [address] [place] [address] 06/22/2023 11:44:04 06/22/2023 12:29:58 Well controlled type 2 diabetes mellitus 283070093 E11.9 a1c of 6.4%- controlled on lowest dose metformin therapy 250 mg twice daily with meals. Recommende d she continue to incorporat e natural insulin roll coating machine operator s such as pears, apples, cinnamon, alissa and sweet potatoes to help mobilize her endogenous insulin. Recommende d up to 150 minutes of moderate level activity/e xercise weekly. Chronic ki dney disease 398896619 N18.9 Refer to nephrology as Cr jumped from 1.3 to 1.63 mg/dL- recently placed on PPI therapy- advised to stop until she follows with nephrology - she was encouraged to drink up to 64 ozs of water and stay hydrated. She is on lowest dose metformin with ideal A1C control. Hypothyroidism 31981453 E03.9 Continue on unithroid 100 mcg daily along with LT3 5 mcg 1-2 times daily as tolerated. She was reminded to take her unithroid on empty stomach with glass of water and wait one hour to eat or have her coffee in morning and up to 4 hours if ever taking any heartburn or reflux medication s to help optimize absorption . Discussed paleo like diet with restrictio n of GMOs to help with energy and to optimize absorption of vitamins and minerals and reduce inflammati on. Dyslipidemia 430782834 E 78.5 Continue statin therapy as LDL in range. Spent up to 25 minutes preparing to see the patient (eg, review of tests), obtaining and/or reviewing separately obtained history, performing a medically appropriat e examinatio n and evaluation , counseling and educating the patient, ordering medication s, tests, along with documentin g clinical informatio n in the electronic health record, independen tly interpreti ng results and communicat ing results to the patient. Patient can be followed by PCP - she/he is aware of my resignatio n and last day of August 05. If needed his/her PCP can refer patient to another endocrinol ogist in the area. All questions /concerns answered and refills necessary at visit today. [id number] Amisha Monique MD [facility] Primary Care [place] [address] [facility] [address] [place] [address] 07/06/2023 14:58:32 07/22/2023 18:48:25 [id number] Andrés Hammond MD [facility] Ortho [place] [address] [place] [address] 07/13/2023 14:57:18 07/13/2023 16:57:23 Osteoarthritis of left knee joint 0232697867 69590 M17.12 [id number] Amisha Monique MD [facility] Primary [place] [address] [facility] [address] [place] [address] 08/16/2023 15:21:18 08/16/2023 16:05:28 [id number] Amisha Monique MD [facility] [place] [address] [facility] [address] [place] [address] 09/19/2023 14:25:37 09/19/2023 15:14:12 Chronic diarrhea 908861096 K52.9 ok to do brief trial off metformin to see if it helps diarrheare ferral for Dr. Quinones given [id number] Andrés Hammond MD [facility] [place] [address] [place] [address] 09/23/2023 14:38:29 09/23/2023 16:46:25 Pain of left shoulder joint 1458223369 0799662 M25.203 [id number] Amisha Monique MD [facility] [address] [facility] [address] [place] [address] 11/08/2023 16:54:27 11/08/2023 17:32:00 Transition of care 5831886246 105 Z75.8 Diabetes mellitus 471122 09 E11.9 stay off metformin due to GI s/e and repeat a1c in 3 months Restless l egs syndrome 46845527 G25.81 increase ropinirole up to 2 po qhs and call with update in 4 weeks [id number] Amisha Monique MD [facility] Primary [place] [address] [facility] [address] [place] [address] 12/26/2023 11:44:35 12/28/2023 10:15:18 [id number] Amisha Monique MD [facility] Primary [place] [address] [facility] [address] [place] [address] 02/07/2024 14:04:14 02/07/2024 14:34:31 Screening for malignant neoplasm of colon 160304915 Z12.11 Chronic ki dney disease 791613115 N18.[address] Ervin Diabetes mellitus 582756 09 E11.9 stable off metforminc an't tolerate due to GI s/esees podiatry and ophtho Essential hypertension 95272213 I10 stableamlo dipine 5 mg daily and losartan/h ctz 100/25 mg dailyf/u in 3 months 02/07/24: stable Dyslipidemia 304131107 E 78.5 Z79.899 Hypothyroidism 17778424 E03.9 Vitamin D deficiency 347 94121 E55.9 Cobalamin deficiency 190 404307 E53.8 Dyspnea on exertion 6084 5006 R06.09 feels more sob than usual, saw cardiology in October but has noticed it since then [id number] Amisha Monique MD [facility] Primary Care [facility] [address] [facility] [address] [place] [address] 02/15/2024 16:00:04 02/15/2024 16:33:30 [id number] OSVALDO Pfeiffer [facility] Primary Care [facility] [address] [facility] [address] [facility] [address] 04/17/2024 14:31:28 04/17/2024 15:55:16 [id number] OSVALDO Pfeiffer [facility] Primary Care [facility] [address] [facility] [address] [facility] [address] 05/23/2024 15:37:01 05/25/2024 15:29:41 [id number] OSVALDO Pfeiffer [facility] Primary Care [facility] [address] [facility] [address] [facility] [address] 08/07/2024 15:55:55 08/07/2024 16:45:05 Renewal of prescription 007176278 Z76.0 Pain of mu ltiple joints 21819482 M25.50 pain to moraima lower extremitie s, low backRom and strength continue to be limiteduna ble to walk through the grocery store/[employer] ss parking lotparking placard informatio n to be filled out Health Concerns Section Related Observation LastModified by Organization Detai ls LastModified Time None Recorded Concern Status LastModified by Organization Details LastModified Time None Recorded Advance Directives Directive N: Payers Insurance Date Sequence Insurance Name Policy Number Policy Palacios Covered Member ID Palacios Member ID Guarantor Name 08/04/2024 1 [place] Katelin Edgar [id number] Katelin Urias Herve 08/13/2024 2 FOR LIFE ( - MEDICARE SUPPLEMENT) Aneesh Edgar [id number] Katelin L Herve Notes Date Note Type Note Provider Name and Address Organization Details Recorded Time 02/07/2024 text/html ROS as noted in the HPI had surgery for lumbar spinal stenosis on 10/04/23 and went to inpatient rehab. Has been home from rehab this month. Currently getting home health. Using walker to ambulate, has stairlift. Wear abd binder. all stitches and sera out, skin healed. She has held metformin and now has normal bm. update 02/07/24: has been off metformin due to GI s/e Amisha Monique MD [address] [facility], [place], [address], [employer] 03/11/2024 17:23:06 08/07/2024 text/html pt is here for f/u OSVALDO Pfeiffer [address] [facility], [place], [address], [employer] 08/07/2024 16:41:02 OBGyn Episode No OBEpisode recorded.
--- OUTSIDE RECORDS SUMMARY | 2025-08-19 16:21 | XMS_ITS | Encounter Summary ---
Author Organization [facility] Address [address] [facility] [address] [place] [address] Care Team Providers Care Blending Machine Feeder Name Role Phone Amisha Monique MD Primary Care Provider + Rohan Ordonez METAL SOLDERER Primary Care Provider [phone] Elaine Parker METAL SOLDERER Primary Care Provider Adwoa Ordonez DO Primary Care Provider [phone] Encounter Details Date Type Department Care Team (Late st Contact Info) Description 11/26/2016 Orders Only [facility] Provider, MD Maryam [address] [place] [address] Social History Tobacco Use Types Packs/Day Years Used Date Smoking Tobacco: Never Assessed Comments Unknown Sex and Gender Information Value Date Recorded Sex Assigned at Not on file 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
--- OUTSIDE RECORDS SUMMARY | 2025-08-19 16:21 | XMS_ITS | Encounter Summary ---
Author Organization [facility] Address [address] [facility] [address] [place] [address] Care Team Providers Care News Gathering Technician Name Role Phone Amisha Monique MD Primary Care Provider + Rohan Ordonez HYDRO PLANT OPERATOR Primary Care Provider [phone] Elaine Parker HYDRO PLANT OPERATOR Primary Care Provider Adwoa Ordonez DO Primary Care Provider Encounter Details Date Type Department Care Team (Late st Contact Info) Description 11/19/2016 Orders Only [facility] Provider, MD Maryam [address] [place] [address] Social History Tobacco Use Types Packs/Day Years Used Date Smoking Tobacco: Never Assessed Comments Unknown Sex and Gender Information Value Date Recorded Sex Assigned at Not on file 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
--- OUTSIDE RECORDS SUMMARY | 2025-08-19 16:21 | XMS_ITS | Encounter Summary ---
Author Organization [facility] Address [address] [facility] [address] [place] [address] Care Team Providers Care Preparing Box Tender Name Role Phone Amisha Monique MD Primary Care Provider + Rohan Ordonez COLLAR TAILOR Primary Care Provider [phone] Elaine Parker COLLAR TAILOR Primary Care Provider Adwoa Ordonez DO Primary Care Provider [phone] Encounter Details Date Type Department Care Team (Late st Contact Info) Description 10/09/2007 Orders Only [facility] Provider, MD Maryam [address] [place] [address] Social History Tobacco Use Types Packs/Day Years Used Date Smoking Tobacco: Never Assessed Comments Unknown Sex and Gender Information Value Date Recorded Sex Assigned at Not on file 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
--- OUTSIDE RECORDS SUMMARY | 2025-08-19 16:21 | XMS_ITS | Encounter Summary ---
Author Organization [facility] Address [address] [facility] [place] [address] Care Team Providers Care Assistant Customer Service Manager Name Role Phone Amisha Monique MD Primary Care Provider [phone] Encounter Details Date Type Department Care Team (Late st Contact Info) Description 10/26/2022 Telephone [facility] SCHEDULING [address] [place] [address] Adriel Schwab MD [address] [place] [address] Social History Tobacco Use Types Packs/Day Years Used Date Smoking Tobacco: Never Smokeless Tobacco: Never Alcohol Use Standard Drinks/Week Comments No 0 (1 standard drink = 0.6 oz pur e alcohol) Comments No Sex and Gender Information Value Date Recorded Sex Assigned at Not on file Legal Sex Female 6:29 AM FAMILY NURSE PRACTITIONER Gender Identity Not on file Sexual Orientation Not on file documented as of this encounter Miscellaneous Notes * Telephone Encounter - Mikael Marroquin - 10/26/2022 11:39 AM CST Pt is upset over her bumped appt. Would like a sooner appt. Cannot come at 8 am because she watchesher grandson. Please contact patient. [phone]. LY NURSE PRACTITIONER documented in this encounter Plan of Treatment Not on file documented as of this encounter Visit Diagnoses Not on filedocumented in this encounter Care Teams Assistant Customer Service Manager Relationship Specialty Start Date End Date Amisha Monique MD [address] [place] [phone] PCP - General 04/14/18 documented as of this encounter
--- OUTSIDE RECORDS SUMMARY | 2025-08-19 16:21 | XMS_ITS | Patient Health Record ---
Author Organization [facility] Address [address] [place] [address] Care Team Providers Care Boat Crew Deck Hand Name Role Phone JOVANNAJENSSHRADDHA TAHIR Primary Care Provider Unavailab Brendan BAR, eJnsen Unavailable ALLERGIES No Known Allergies REASON FOR REFERRAL No Information MEDICATIONS Medication SIG (Take, Route, Frequency, Duration) Notes Start Date End Date Status Timolol Maleate 10 MG 1 tablet with food Orally Twice a day Active Losartan Potassium-HCTZ 100-25 MG 1 tablet Orally Once a day Active Rosuvastatin Calcium 10 MG 1 tablet Oral ly Once a day Active QUEtiapine Fumarate 100 MG 1 tablet at b edtime Orally Once a day Active amLODIPine Besylate 5 MG 1 tablet Orally Once a day Active Singulair 5 MG as directed Orally Active rOPINIRole HCl 1 MG 1 tablet 1 to 3 hour s before bedtime Orally Once a day Active Piroxicam 10 MG 1 capsule with food Orally Once a day Active metFORMIN HCl 500 MG 1 tablet with a gracie l Orally Once a day Active Detrol 2 MG 1 tablet Orally Twic e a day Active Aspirin 81 81 MG 1 tablet Orally Once a day Active SOCIAL HISTORY Tobacco Use: Social History Observation Description Date Details (start date - stop date) Never Smoker NA - NA Sex Assigned At : Social History Observation Description Sex Assigned At Unknown Tobacco Use: Question Answer Notes Patient is a: nonsmoker Alcohol screening: Question Answer Notes Did you have a drink containing alcohol in the p ast year? No Points 0 Interpretation Negative PROBLEMS Problem Type ICD Code Onset Dates Problem Status W/U Status Risk SNOMED Code Notes Problem Acute pain of left shoulder (M25.512) Active confirmed 6876787165 Problem Primary osteoarthriti s, left shoulder (M19.012) Active confirmed [id number] PLAN OF TREATMENT Pending Test Test Name Order Date MRI : Shoulder, left 12/15/2023 Insurance Providers Payer Name Payer Address Payer Phone Subscriber Number Group Number Insured Name Patient Relationship to Insured Coverage Start Date Coverage End Date Medicare [address] [place] [address] [id number] Katelin Edgar Self - patient is the insured [employer] [address] [place] [address] [id number] Aneesh Edgar Spouse - patient is the spouse of the insured MEDICAL (GENERAL) HISTORY Medical History History ICD Code hypertension hyperlipidemia urologic problems Surgical History Surgery Date(Month/Year) right knee replacement tonsillectomy hysterectomy
[2025-08-19 16:29] LABS: Vitamin B12 > 1000.0 pg/mL (239-931)
== END 2025-08-19 14:39 | disposition home or self-care (01) ==
PROVIDERS: PCP Family Medicine; Visit Provider Internal Medicine Nephrology
DX: E03.9 Hypothyroidism, unspecified (principal); E11.22 Type 2 diabetes mellitus with diabetic chronic kidney disease; R53.83 Other fatigue; R06.00 Dyspnea, unspecified; I12.9 Hypertensive chronic kidney disease with stage 1 through stage 4 chronic kidney disease, or unspecified chronic kidney disease; N18.32 Chronic kidney disease, stage 3b; N25.81 Secondary hyperparathyroidism of renal origin; E55.9 Vitamin D deficiency, unspecified
CPT/HCPCS: 36415; 80053; 82306; 82570; 82607; 83036; 84100; 84156; 84443; 85025

== ENCOUNTER 2025-08-30 12:54 | Inpatient (IN) | payer MEDICARE, OTHER, SELFPAY ==
[2025-08-30] VITALS (11 sets, daily range): BP systolic 96–135; BP diastolic 44–82; PULSE 55–89; RESP 16–23; TEMP 36.7–37.1; O2SAT 96–100; BMI 34.7
--- NOTE | ~2025-08-30 | CT_ITS ---
EXAMINATION: CT chest abdomen pelvis w con DATE: 08/30/2025 17:58 DOWEL SANDER OPERATOR INDICATION: Electric are stools. GI bleed protocol. TECHNIQUE: Computed tomography (CT) of the chest, abdomen, and pelvis was performed with 100 cc Omnipaque 350 intravenous contrast. The dose-length product was 1115.17 mGy-cm. COMPARISON: CT dated 03/27/2022 FINDINGS: CHEST CT: There is atherosclerosis of the aorta. Small pericardial effusion. Heart size normal. No significant pleural effusion. Mild mediastinal lymphadenopathy, likely reactive. There is dependent atelectasis. No endobronchial lesions. There is dependent atelectasis. No suspicious pulmonary nodules or masses. No endobronchial lesions. No pneumothorax. ABDOMEN/PELVIS CT: Status post cholecystectomy with expected prominence of the bile ducts. The spleen, adrenal glands and kidneys are unremarkable. There are small cystic masses of the pancreas which may represent focally dilated pancreatic duct or mass. There is a periumbilical hernia containing fat and fluid. No evidence for bowel intrusion. Bladder is decompressed and contains bladder stones. No GI tract abnormality is identified to explain blood in stool. Colonic diverticulosis without evidence for diverticulitis. There are posterior surgical fusion changes at L3-S1 with grade 1 spondylolisthesis at L4-5. There are laminectomy changes at L4. There are spinal stimulator leads in the mid thoracic spinal canal. IMPRESSION: 1. Small pericardial effusion. 2: Mediastinal lymphadenopathy, likely reactive. 3: No findings to account for patient's blood in stool. 4: Small cystic masses in the pancreas which may represent focally dilated pancreatic duct. The differential diagnosis includes pseudocyst, intraductal papillary mucinous neoplasm (IPMN), mucinous cystic neoplasm (MCN), and the less common serous cystadenoma and neuroendocrine tumor. 5: Periumbilical hernia containing fat and fluid. No evidence for bowel obstruction. Reviewed, dictated and finalized at location O. L SANDER OPERATOR IMPRESSION: 1. Small pericardial effusion. 2: Mediastinal lymphadenopathy, likely reactive. 3: No findings to account for patient's blood in stool. 4: Small cystic masses in the pancreas which may represent focally dilated panc reatic duct. The differential diagnosis includes pseudocyst, intraductal papill elizabeth mucinous neoplasm (IPMN), mucinous cystic neoplasm (MCN), and the less comm on serous cystadenoma and neuroendocrine tumor. 5: Periumbilical hernia containing fat and fluid. No evidence for bowel obstruc tion.
--- NOTE | ~2025-08-30 | XR_ITS ---
EXAMINATION: XR chest 1V portable DATE: 08/30/2025 16:42 INDICATION: Short of breath TECHNIQUE: A single frontal view of the chest was obtained. COMPARISON: October 23, 2022 FINDINGS: Heart shadow borderline enlarged. No ivan pulmonary edema or large effusion. Dorsal column stimulating leads overlie the mid thoracic spine. Bones appear mildly osteopenic. No pneumothorax or subphrenic free air seen. IMPRESSION: 1. Portable chest x-ray with no focal acute process. Reviewed, dictated and finalized at location A. NDANCE OFFICER
--- OUTSIDE RECORDS SUMMARY | 2025-08-30 12:57 | XMS_ITS | Clinical Summary ---
Author Organization [facility] [address] Address [address] [place] [address] Care Team Providers Care Twister Hand Name Role Phone Adwoa Ordonez Primary Care Provider Allergies Active Allergy Reactions Criticality Noted Date Comments Cat Dander Unknown 02/01/2019 Medications hydroCHLOROthiaz annette (HYDRODIURIL) 25 mg tablet take 1 tablet by oral route every day 0 0 7 Active losartan (COZAAR) 100 mg tablet take 1 tablet by oral route every day 0 0 7 Active piroxicam (FELDENE) 20 mg capsule take 1 capsule by oral route 3 TIMES A WEEK FOR ARTHRITIS 0 0 7 Active albuterol sulfate (PROAIR RESPICLICK) 90 mcg/actuation aerosol powdr breath activated inhale 2 puff by inhalation route every 4 - 6 hours as needed 0 Inhaler 0 7 Active nystatin cream as needed 8 Active ADVAIR HFA 230-21 mcg/actuation inhaler 2 (two) times a day 8 Active tolterodine LA (DETROL LA) 4 mg [...] RUB IN GENTLY AND COMPLETELY 1 Active levothyroxine (SYNTHROID) 100 mcg tablet TAKE 1 TABLET BY MOUTH ONCE DAILY IN THE MORNING 1 Active timolol (TIMOPTIC) 0.5 % ophthalmic solution INSTILL 1 DROP INTO EACH EYE TWICE DAILY 1 Active rOPINIRole (REQUIP) 0.25 mg tablet Take [...] UNDER THE SKIN WEEKLY FOR 4 WEEKS 5 Active Active Problems Problem Noted Date Diagnosed [...] to ask her to drive her to [place]. I explained that she could go to [...] controlled. Assessment & Plan (11/24/2022 7:09 PM NUCLEAR POWERPLANT MECHANIC HELPER): She has balance problem of unclear etiology. [...] diagnosis. Assessment & Plan (11/24/2022 7:08 PM NUCLEAR POWERPLANT MECHANIC HELPER): Technically she has parkinsonism stage 1 or [...] Encounters Date Type Department Care Team Description 08/28/2025 1:00 PM NUCLEAR POWERPLANT MECHANIC HELPER Ancillary Procedure [facility] Cardiology at [address] [place] [phone] Dyspnea on exertion 08/22/2025 Telephone [facility] Medical [facility] Cardiology [address] [facility] [address] [place] [phone] Alvin Lopez MD 08/15/2025 10:40 AM CDT Office Visit [facility] Medicine Gastroenterology [address] [facility] 12th [place] [address] [place] [address] Justin Wing MD Steatohepatitis, non-alcoholic (Primary Dx); IPMN (intraductal papillary mucinous neoplasm) 08/13/2025 Documentation [facility] Medicine Movement Disorders [address] [facility] [address] [place] [address] Reba Madsen CMA 07/31/2025 11:00 AM CDT Office Visit [facility] Movement Disorders [address] [facility] 7th [place] [address] Karly Echevarria NP Unspecified abnormalities of gait and mobility (Primary Dx); Abnormal gait; Balance problem 06/21/2025 Telephone [facility] Medicine Scheduling [address] [place] [address] Howard Carrero MD PhD Scheduling Appointments 06/13/2025 Telephone [facility] Medicine Scheduling [address] [place] [address] Radha Alcaraz, [facility] Scheduling Appointments from Last 3 [...] Father Augustine Parkinson's dis ease; Stroke Father Dalec Parkinsonism Mother Keren Stroke Mother Keren Stroke; Breast cancer Mother's Sister Breast cancer Paternal Grandmother Relation Name Status Comments Father Augustine (Age 89) Mother Keren (Age 88) Mother's Sister Paternal Grandmother Sister 1 Ev Alive Sister 2 Soal Alive Social History Tobacco Use Types Packs/Day Years Used Date Smoking Tobacco: Never Smokeless Tobacco: Never Tobacco Cessation:Counseling Given: Not Answered Alcohol Use Standard Drinks/Week Comments No 0 (1 standard drink = 0.6 oz pur e alcohol) Comments No Sex and Gender Information Value Date Recorded Sex Assigned at Not on file Legal Sex Female 12:56 PM NUCLEAR POWERPLANT MECHANIC HELPER Gender Identity Female 03/05/2022 12:13 PM CDT [...] Visit 65+ 2016 Breast Cancer Screening-Mammogram 04/08/2021 020 Lipid Panel 05/03/2024 05/03/2023, 10/25, 11/04/2020, Additional history exists Depression Screening 05/09/2025 05/09/2024 Influenza Vaccine (#1) 2025 , 07/20/2022, 08/13/2020, Additional history exists eGFR 09/06/2025 09/06/2024, 02/2023, 07/16/2021 DTaP/Tdap/Td Vaccine (3 - Td or Tdap) 12/19/2034 12/19/2024, 10/09/2016 Pneumococcal vaccine 65+ Completed 018, 01/04/2017, 09/10/2015 Zoster Vaccine Completed 09/07/2021, 07/08/2021 Procedures Procedure Name Priority Date/Time Associated Diagnosis Comments TRANSTHORACIC ECHO (TTE) COMPLETE W DOPPLER/CF WO CONTRAST Routine 08/28/2025 1:39 PM NUCLEAR POWERPLANT MECHANIC HELPER Dyspnea on exertion EGFR Routine 09/06/2024 2:12 PM NUCLEAR POWERPLANT MECHANIC HELPER Steatohepatitis, non-alcoholic POCT LIPID PANEL Routine 05/03/2023 2:03 PM CDT Lipid screening DIAGNOSTIC MAMMOGRAM BILATERAL W BIB Schedule Routine, Read Routine (OP Routine) 04/08/2020 12:13 PM CDT Abnormal mammogram from Last 3 Months or Most Recently Relevant to Health Maintenance Results * TRANSTHORACIC ECHO (TTE) COMPLETE W DOPPLER/CF WO CONTRAST (08/28/2025 1:39 PM NUCLEAR POWERPLANT MECHANIC HELPER) Estimated EF 70-75 % CONS SCIMAGE EF Mod BP 52 % CONS SCIMAGE Anatomical Region Laterality Modality Ultrasound 08/28/2025 12:5 1 PM NUCLEAR POWERPLANT MECHANIC HELPER Narrative 08/28/2025 3:11 PM NUCLEAR POWERPLANT MECHANIC HELPER [facility] Cardiology [address], [address], [place] [address] P:[phone] P:[phone] Echocardiographic Report Patient Name: SAL EDGAR L : 1950 Study Date: 08/28/2025 12:51:15 PM Sex: F Chicken Stuffer: RAMON Location: [facility] Ref Provider: ALVIN LOPEZ Height(Cm): 155 BSA: 1.93 Weight(Kg): 86.6 Heart Rate: 80 BP: 121 / 70 Quality: Good Order Provider: ALVIN LOPEZ PROCEDURES: Echocardiographic Report: Transthoracic echocardiogram with complete 2D, M-Mode, and color Doppler examination. Definity/Optison could not be used due to: unable to obtain IV access. INDICATIONS: R06.09 Other forms of dyspnea. MEASUREMENTS: 2D/MM Value Range Doppler Value Range EF Mod BP 52 % [ 54 - 74 ] IRAJ Vmax 1.28 cm2 [ 2.00 - 4.00 ] EF Teich MM 64 % [ 54 - 74 ] AV Mean PG 36 mmHg Estimated EF 70-75 % AV Peak Bear 3.54 m/s [ 1.00 - 1.70 ] LVIDd 2D 3.73 cm [ 3.80 - 5.20 ] AV Peak PG 50 mmHg LVIDd MM 4.81 cm [ 3.80 - 5.20 ] AV VTI 85.16 cm LVIDs 2D 2.47 cm [ 2.20 - 3.50 ] LVOT Diam 1.96 cm [ 1.70 - 2.10 ] LVIDs MM 3.14 cm [ 2.20 - 3.50 ] LVOT Peak Bear 1.50 m/s [ 0.70 - 1.10 ] LVPWd 2D 0.93 cm [ 0.60 - 0.90 ] LVOT VTI 37.44 cm LVPWd MM 0.97 cm [ 0.60 - 0.90 ] MV E Peak Bear 1.59 m/s [ 0.60 - 1.30 ] IVSd 2D 1.57 cm [ 0.60 - 0.90 ] MV A Peak Bear 2.08 m/s [ 1.00 - 1.20 ] IVSd MM 0.78 cm [ 0.60 - 0.90 ] MV Mean PG 11 mmHg [ 0 - 5 ] LA Dimension MM 4.60 cm [ 2.70 - 3.80 ] MV PHT 64 msec [ 20 - 100 ] AoR Diam MM 3.34 cm [ 2.70 - 3.30 ] MVA PHT 3.42 cm2 [ 2.00 - 4.00 ] LA Volume 87.01 ml [ 22.00 - 52.00 ] MV Decel Time 220 msec [ 104 - 258 ] LA Volume Index 45 cc/m2 [ 16 - 28 ] PV Peak Bear 0.92 m/s [ 0.40 - 0.80 ] RA Volume 30.84 ml TR Peak Bear 3.22 m/s [ 1.00 - 2.80 ] TR Peak PG 41 mmHg RVSP 49.00 mmHg [ 10.00 - 36.00 ] RV S` 0.11 m/s Lateral E` 0.02 m/s [ 0.10 - 0.15 ] Septal E` 0.04 m/s [ 0.08 - 0.15 ] E` 0.03 m/s E/E` 56 Tapse 3.77 cm [ 1.71 - 5.00 ] 2D/MM Value Range Doppler Value Range - FINDINGS: Interpretation Site: Exam was interpreted at [facility]. Left Ventricle: Normal left ventricular systolic function. No focal wall motion abnormalities. Normal left ventricular size. Asymmetric septal hypertrophy. Impaired diastolic relaxation Grade I. Ejection Fraction is visually estimated to be 70-75 %. Right Ventricle: Normal right ventricular size. Normal right ventricular systolic function. Left Atrium: There is severe enlargement of left atrium. Right Atrium: The right atrium is normal in size. Atrial Septum: Normal atrial septum. Mitral Valve: Severe mitral annular calcification. Mild to moderate mitral valve regurgitation. At least mild mitral stenosis. Mean gradient of 11.00 mmHg. Valve area of 3.42 cm2. Aortic Valve: Moderate aortic stenosis. Peak Velocity of 3.54 m/s. Peak gradient of 50.0 mmHg. Mean gradient of 36.0 mmHg. Valve area of 1.2 cm2. Probable trileaflet aortic valve, although not all leaflets are visualized. Moderate aortic valve regurgitation. Tricuspid Valve: Normal appearance of the tricuspid valve. Moderate pulmonary hypertension based on right ventricular systolic pressure. Estimated peak RVSP is 49 mmHg. Mild tricuspid regurgitation. Pulmonic Valve: Normal appearance of the pulmonic valve. No pulmonic stenosis. Mild pulmonic regurgitation. Pericardium: Small pericardial effusion. Aorta: No aortic root dilation. Mild aortic root calcification. IVC: Normal size and normal respiratory collapse consistent with normal right atrial pressure (<5 mmHg). CONCLUSIONS: Normal left ventricular systolic function. No focal wall motion abnormalities. Normal left ventricular size. Asymmetric septal hypertrophy. Impaired diastolic relaxation Grade I. Ejection Fraction is visually estimated to be 70-75 %. There is severe enlargement of left atrium. Severe mitral annular calcification. Mild to moderate mitral valve regurgitation. At least mild mitral stenosis. Mean gradient of 11.00 mmHg. Valve area of 3.42 cm2. Moderate aortic stenosis. Peak Velocity of 3.54 m/s. Peak gradient of 50.0 mmHg. Mean gradient of 36.0 mmHg. Valve area of 1.2 cm2. Probable trileaflet aortic valve, although not all leaflets are visualized. Moderate aortic valve regurgitation. Moderate pulmonary hypertension based on right ventricular systolic pressure. Estimated peak RVSP is 49 mmHg. Mild tricuspid regurgitation. Mild pulmonic regurgitation. Small pericardial effusion. Normal sinus rhythm. Significant valvular heart disease is noted. Consider ANANTH or other advanced imaging. Electronically Signed By: Wellington Nowak MD 08/28/2025 3:10:21 PM NUCLEAR POWERPLANT MECHANIC HELPER Procedure Note Wellington Nowak MD - 08/28/2025 [facility] Cardiology [address] [facility], [address], [place] [address] P:[phone] P:[phone] Echocardiographic Report Patient Name: SAL EDGAR L : 1950 Study Date: 08/28/2025 12:51:15 PM Sex: F Chicken Stuffer: RAMON Location: [facility] Ref Provider: ALVIN LOPEZ Height(Cm): 155 BSA: 1.93 Weight(Kg): 86.6 Heart Rate: 80 BP: 121 / 70 Quality: Good Order Provider: ALVIN LOPEZ PROCEDURES: Echocardiographic Report: Transthoracic echocardiogram with complete 2D, M-Mode, and color Dopplerexamination. Definity/Optison could not be used due to: unable to obtain IV access. INDICATIONS: R06.09 Other forms of dyspnea. MEASUREMENTS: 2D/MM Value Range Doppler ValueRange EF Mod BP 52 % [ 54 - 74 ] IRAJ Vmax 1.28cm2 [ 2.00 - 4.00 ] EF Teich MM 64 % [ 54 - 74 ] AV Mean PG 36mmHg Estimated EF 70-75 % AV Peak Bear 3.54m/s [ 1.00 - 1.70 ] LVIDd 2D 3.73 cm [ 3.80 - 5.20 ] AV Peak PG 50mmHg LVIDd MM 4.81 cm [ 3.80 - 5.20 ] AV VTI 85.16cm LVIDs 2D 2.47 cm [ 2.20 - 3.50 ] LVOT Diam 1.96cm [ 1.70 - 2.10 ] LVIDs MM 3.14 cm [ 2.20 - 3.50 ] LVOT Peak Bear 1.50m/s [ 0.70 - 1.10 ] LVPWd 2D 0.93 cm [ 0.60 - 0.90 ] LVOT VTI 37.44cm LVPWd MM 0.97 cm [ 0.60 - 0.90 ] MV E Peak Bear 1.59m/s [ 0.60 - 1.30 ] IVSd 2D 1.57 cm [ 0.60 - 0.90 ] MV A Peak Bear 2.08m/s [ 1.00 - 1.20 ] IVSd MM 0.78 cm [ 0.60 - 0.90 ] MV Mean PG 11mmHg [ 0 - 5 ] LA Dimension MM 4.60 cm [ 2.70 - 3.80 ] MV PHT 64msec [ 20 - 100 ] AoR Diam MM 3.34 cm [ 2.70 - 3.30 ] MVA PHT 3.42cm2 [ 2.00 - 4.00 ] LA Volume 87.01 ml [ 22.00 - 52.00 ] MV Decel Time 220msec [ 104 - 258 ] LA Volume Index 45 cc/m2 [ 16 - 28 ] PV Peak Bear 0.92m/s [ 0.40 - 0.80 ] RA Volume 30.84 ml TR Peak Bear 3.22m/s [ 1.00 - 2.80 ] TR Peak PG 41 mmHg RVSP 49.00 mmHg [ 10.00 - 36.00 ] RV S` 0.11 m/s Lateral E` 0.02 m/s [ 0.10 - 0.15 ] Septal E` 0.04 m/s [ 0.08 - 0.15 ] E` 0.03 m/s E/E` 56 Tapse 3.77 cm [ 1.71 - 5.00 ] 2D/MM Value Range Doppler ValueRange - FINDINGS: Interpretation Site: Exam was interpreted at [facility]. Left Ventricle: Normal left ventricular systolic function. No focal wall motionabnormalities. Normal left ventricular size. Asymmetric septal hypertrophy. Impaired diastolicrelaxation Grade I. Ejection Fraction is visually estimated to be 70-75 %. Right Ventricle: Normal right ventricular size. Normal right ventricular systolicfunction. Left Atrium: There is severe enlargement of left atrium. Right Atrium: The right atrium is normal in size. Atrial Septum: Normal atrial septum. Mitral Valve: Severe mitral annular calcification. Mild to moderate mitral valveregurgitation. At least mild mitral stenosis. Mean gradient of 11.00 mmHg. Valve area of3.42 cm2. Aortic Valve: Moderate aortic stenosis. Peak Velocity of 3.54 m/s. Peak gradient of 50.0mmHg. Mean gradient of 36.0 mmHg. Valve area of 1.2 cm2. Probable trileaflet aorticvalve, although not all leaflets are visualized. Moderate aortic valve regurgitation. Tricuspid Valve: Normal appearance of the tricuspid valve. Moderate pulmonary hypertensionbased on right ventricular systolic pressure. Estimated peak RVSP is 49 mmHg. Mildtricuspid regurgitation. Pulmonic Valve: Normal appearance of the pulmonic valve. No pulmonic stenosis. Mildpulmonic regurgitation. Pericardium: Small pericardial effusion. Aorta: No aortic root dilation. Mild aortic root calcification. IVC: Normal size and normal respiratory collapse consistent with normal rightatrial pressure (<5 mmHg). CONCLUSIONS: Normal left ventricular systolic function. No focal wall motionabnormalities. Normal left ventricular size. Asymmetric septal hypertrophy. Impaired diastolicrelaxation Grade I. Ejection Fraction is visually estimated to be 70-75 %. There is severe enlargement of left atrium. Severe mitral annular calcification. Mild to moderate mitral valveregurgitation. At least mild mitral stenosis. Mean gradient of 11.00 mmHg. Valve area of3.42 cm2. Moderate aortic stenosis. Peak Velocity of 3.54 m/s. Peak gradient of 50.0mmHg. Mean gradient of 36.0 mmHg. Valve area of 1.2 cm2. Probable trileaflet aorticvalve, although not all leaflets are visualized. Moderate aortic valve regurgitation. Moderate pulmonary hypertension based on right ventricular systolicpressure. Estimated peak RVSP is 49 mmHg. Mild tricuspid regurgitation. Mild pulmonic regurgitation. Small pericardial effusion. Normal sinus rhythm. Significant valvular heart disease is noted. Consider ANANTH or otheradvanced imaging. Electronically Signed By: Wellington Nowak MD 08/28/2025 3:10:21 PM NUCLEAR POWERPLANT MECHANIC HELPER Alvin Lopez MD CV ECHO PROCEDURES Final Result * (ABNORMAL) eGFR (09/06/2024 2:12 PM NUCLEAR POWERPLANT MECHANIC HELPER) eGFR 39(L) >=60 mL/min/1. 73 m2 Comment: [...] last reviewed 2021. Blood 09/06/2024 2:12 PM NUCLEAR POWERPLANT MECHANIC HELPER 09/06/2024 2:29 PM NUCLEAR POWERPLANT MECHANIC HELPER us Justin Wing MD LAB BLOOD ORDERABLES Final Result [facility] Department [place] [address] * POCT lipid panel (05/03/2023 2:03 PM CDT) Cholesterol, POC 146 mg/dL HDL, POC 43 mg/dL Triglycerides, POC 128 mg/dL LDL Cholesterol POC 77 mg/dL Chol/HDL Ratio, POC 1.8 Non-HDL Cholesterol, POC 103 mg/dL Cholesterol Total, POC 146 mg/dL Capillary blood 05/03/2023 2 :03 PM CDT us Alvin Lopez MD POINT OF CARE TEST ORDER [...] FOR LIFE MEDICARE FOR LIFE Care Teams Twister Hand Relationship Specialty Start Date End Date Adwoa Ordonez DO [address] [place] [address] PCP - General Family Medicine 11/27/24
--- OUTSIDE RECORDS SUMMARY | 2025-08-30 12:57 | XMS_ITS | Clinical Summary ---
Author Organization [facility] [employer] Address [address] [place] [address] Care Team Providers Care Coloring Checker Name Role Phone Amisha Monique MD Primary Care Provider [phone] Source Comments [employer],non-owned Affiliates and Associated Physician Practices is amultiple site organization consisting of ambulatory clinics and hospital sitesin [place], [place], [place]. This disclosure is being madepursuant to the Care Everywhere program and may not contain all information available regarding this patient. Last updated 18.[facility] [employer] Medications * Be aware that medications may [...] on file Legal Sex Female 6:29 AM PROFESSIONAL BASS FISHERMAN Gender Identity Not on file Sexual Orientation Not on file Last Filed Vital Signs Vital Sign Reading Time Taken Comments Blood Pressure 132/77 09/08/2022 11:59 AM PROFESSIONAL BASS FISHERMAN 116/72 right arm Pulse 80 09/08/2022 11:59 AM PROFESSIONAL BASS FISHERMAN Temperature 36.3 C (97.3 F) 09/08/2022 11:59 AM PROFESSIONAL BASS FISHERMAN Respiratory Rate - - Oxygen Saturation 98% 09/08/2022 11: 59 AM PROFESSIONAL BASS FISHERMAN Inhaled Oxygen Concentration - - Weight 85.7 kg (189 lb) 09/08/2022 11:5 9 AM PROFESSIONAL BASS FISHERMAN Height 160 cm (5' 3) 09/08/2022 11:59 AM PROFESSIONAL BASS FISHERMAN Body Mass Index 33.48 09/08/2022 11:59 AM PROFESSIONAL BASS FISHERMAN Plan of Treatment Health Maintenance Due Date [...] complete this topic Insurance MEDICARE [facility] MEDICARE [facility] Care Teams Coloring Checker Relationship Specialty Start Date End Date Amisha Monique MD [address] [place] [address] JUSTIN Mark [id number] PCP - General 04/14/18
--- OUTSIDE RECORDS SUMMARY | 2025-08-30 12:57 | XMS_ITS | Encounter Summary ---
Author Organization [facility] Address [address] [facility] [address] [place] [address] Care Team Providers Care Project Management Name Role Phone Amisha Monique MD Primary Care Provider + Rohan Ordonez QUALITY ASSURANCE ADVISOR Primary Care Provider [phone] Elaine Parker QUALITY ASSURANCE ADVISOR Primary Care Provider Adwoa Ordonez DO Primary Care Provider Encounter Details Date Type Department Care Team (Late st Contact Info) Description 10/09/2007 Orders Only [facility] Provider, MD Maryam [address] [place] [address] Social History Tobacco Use Types Packs/Day Years Used Date Smoking Tobacco: Never Assessed Comments Unknown Sex and Gender Information Value Date Recorded Sex Assigned at Not on file Legal Sex Female 12:56 PM TASSEL SNIPPER Gender Identity Female 03/05/2022 12:13 PM CDT [...] on filedocumented in this encounter Care Teams Project Management Relationship Specialty Start Date End Date Amisha Monique MD PCP - General 11/19/16 08/28/24 Rohan Ordonez NP [address] [place] [address] PCP - General Neurology 08/29/24 11/13/24 Elaine Parker NP [address] [place] [address] PCP - General Nurse Practitioner 11/23/24 11/26/24 Adwoa Ordonez DO [address] [place] [address] PCP - General Family Medicine 11/27/24 documented as of this encounter
--- OUTSIDE RECORDS SUMMARY | 2025-08-30 12:57 | XMS_ITS | Encounter Summary ---
Author Organization [facility] Address [address] [facility] [address] [place] [address] Care Team Providers Care Intermediate Accountant Name Role Phone Amisha Monique MD Primary Care Provider + Rohan Ordonez NET SORTER Primary Care Provider [phone] Elaine Parker NET SORTER Primary Care Provider Adwoa Ordonez DO Primary Care Provider Encounter Details Date Type Department Care Team (Late st Contact Info) Description 11/26/2016 Orders Only [facility] Provider, MD Maryam [address] [place] [address] Social History Tobacco Use Types Packs/Day Years Used Date Smoking Tobacco: Never Assessed Comments Unknown Sex and Gender Information Value Date Recorded Sex Assigned at Not on file Legal Sex Female 12:56 PM CONTACT LENS INSPECTOR Gender Identity Female 03/05/2022 12:13 PM CDT [...] on filedocumented in this encounter Care Teams Intermediate Accountant Relationship Specialty Start Date End Date Amisha Monique MD PCP - General 11/19/16 08/28/24 Rohan Ordonez NP [address] [place] [address] PCP - General Neurology 08/29/24 11/13/24 Elaine Parker NP [address] [address] PCP - General Nurse Practitioner 11/23/24 11/26/24 Adwoa Ordonez DO [address] [place] [address] PCP - General Family Medicine 11/27/24 documented as of this encounter
--- OUTSIDE RECORDS SUMMARY | 2025-08-30 12:57 | XMS_ITS | Encounter Summary ---
Author Organization [facility] Address [facility] [place] [address] Care Team Providers Care Assistant Service Manager Name Role Phone Amisha Monique MD Primary Care Provider [phone] Castro Lopez MD Unavailable [phone] Judah Clark MD Unavailable Justin Wing MD Unavailable [phone] Encounter Details Date Type Department Care Team (Late st Contact Info) Description 09/06/2023 Prep for Procedure [facility] [place], [place] [id number] Laisha Rutledge MD [address] [facility] [address] [place], [place] [id number] Social History Tobacco Use Types Packs/Day Years [...] 6:45 AM Judith Araya RN Active * Kidder Suicide Severity Rating Scale (Screener/Recent Self-Report) Question [...] of lower extremities with ulcer and inflammation ([facility] HHS/HCC) 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 [facility] [address] [place] [address] Referring Physician VASCULAR SURGERY 08/23/23 Justin Wing MD [address] [facility] [address] [place] [address] GASTROENTEROLOGY 08/23/23 documented as of this encounter
--- OUTSIDE RECORDS SUMMARY | 2025-08-30 12:57 | XMS_ITS | Encounter Summary ---
Author Organization [facility] Address [address] [facility] [place] [address] Care Team Providers Care Physician Assistant Certified Name Role Phone Amisha Monique MD Primary Care Provider [phone] Encounter Details Date Type Department Care Team (Late st Contact Info) Description 10/26/2022 Telephone [facility] SCHEDULING [address] [place] [address] Adriel Schwab MD [address] [place] [address] Social History Tobacco Use Types Packs/Day Years Used Date Smoking Tobacco: Never Smokeless Tobacco: Never Alcohol Use Standard Drinks/Week Comments No 0 (1 standard drink = 0.6 oz pur e alcohol) Comments No Sex and Gender Information Value Date Recorded Sex Assigned at Not on file Legal Sex Female 6:29 AM SEPARATOR OPERATOR Gender Identity Not on file Sexual Orientation Not on file documented as of this encounter Miscellaneous Notes * Telephone Encounter - Mikael Marroquin - 10/26/2022 11:39 AM CST Pt is upset over her bumped appt. Would like a sooner appt. Cannot come at 8 am because she watchesher grandson. Please contact patient. [phone]. RATOR OPERATOR documented in this encounter Plan of Treatment Not on file documented as of this encounter Visit Diagnoses Not on filedocumented in this encounter Care Teams Physician Assistant Certified Relationship Specialty Start Date End Date Amisha Monique MD [address] [place] [id number] PCP - General 04/14/18 documented as of this encounter
--- OUTSIDE RECORDS SUMMARY | 2025-08-30 12:57 | XMS_ITS | Encounter Summary ---
Author Organization [facility] Address [address] [facility] [address] [place] [address] Care Team Providers Care Auger Supervisor Name Role Phone Amisha Monique MD Primary Care Provider + Rohan Ordonez SYNTHETIC SOIL BLOCKS PULPER Primary Care Provider [phone] Elaine Parker SYNTHETIC SOIL BLOCKS PULPER Primary Care Provider Adwoa Ordonez DO Primary Care Provider Encounter Details Date Type Department Care Team (Late st Contact Info) Description 11/19/2016 Orders Only [facility] Provider, MD Maryam [address] [place] [address] Social History Tobacco Use Types Packs/Day Years Used Date Smoking Tobacco: Never Assessed Comments Unknown Sex and Gender Information Value Date Recorded Sex Assigned at Not on file Legal Sex Female 12:56 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 us Historical Provider [facility]IRSCH Final Result documented in this encounter Visit Diagnoses Not on filedocumented in this encounter Care Teams Auger Supervisor Relationship Specialty Start Date End Date Amisha Monique MD PCP - General 11/19/16 08/28/24 Rohan Ordonez NP [address] [place] [address] PCP - General Neurology 08/29/24 11/13/24 Elaine Parker NP [address] [place] [address] PCP - General Nurse Practitioner 11/23/24 11/26/24 Adwoa Ordonez DO [address] [place] [address] PCP - General Family Medicine 11/27/24 documented as of this encounter
--- OUTSIDE RECORDS SUMMARY | 2025-08-30 14:58 | XMS_ITS | Encounter Summary ---
Author Organization [facility] Address [address] [place] [address] Care Team Providers Care Naphthalene Still Operator Name Role Phone Amisha Monique MD Primary Care Provider [phone] Encounter Details Date Type Department Care Team (Late st Contact Info) Description 10/26/2022 Telephone [facility] SCHEDULING [address] [place] [address] Adriel Schwab MD [address] [place] [address] Social History Tobacco Use Types Packs/Day Years Used Date Smoking Tobacco: Never Smokeless Tobacco: Never Alcohol Use Standard Drinks/Week Comments No 0 (1 standard drink = 0.6 oz pur e alcohol) Comments No Sex and Gender Information Value Date Recorded Sex Assigned at Not on file Legal Sex Female 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 Would like a sooner appt. Cannot come at 8 am because she watchesher grandson. Please contact patient. [phone]. TREATER HELPER documented in this encounter Plan of Treatment Not on file documented as of this encounter Visit Diagnoses Not on filedocumented in this encounter Care Teams Naphthalene Still Operator Relationship Specialty Start Date End Date Amisha Monique MD [address] [place] [id number] PCP - General 04/14/18 documented as of this encounter
--- OUTSIDE RECORDS SUMMARY | 2025-08-30 14:58 | XMS_ITS | Data Portability ---
Author Organization [facility], Main Office Address [address] [place] [address] Care Team Providers Care Deicer Kit Assembler Name Role Phone AMISHA MONIQUE Primary Care Provider AMISHA MONIQUE Referring Provider [phone] Assessment Encounter Date Assessment Date Assessment LastModified [...] screening, QL, stool 2023 024 [email or web address] [id number] [facility], [address], [address], [place], [address], 08:22:10 TSH, serum or plasma 2023 AURY Not available 22:39:06 T4, free, serum 2023 AURY Not available 22:26:00 vitamin B12, serum 2023 AURY Not available 23:26:12 folate, serum 2023 AURY Not available 23:26:16 Referral cardiologis t referral - Please call patient to schedule an appointment . Thank you. 2023 [email or web address] Castro Lopez MD, [address] [place] [address] [address], [address], [place], [address], 08:34:04 Procedures None recorded. Surgeries None recorded. Imaging None recorded. Medication Orders piroxicam 20 mg capsule 2023 [id number], [address] [facility], [place], [place], [id number], 16:39:21 quetiapine 100 mg tablet 2023 [facility], [facility], [place], [address], 16:39:18 Patient TargetsNo targets recorded. Patient InstructionsNo instructions recorded. 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 Thank you. Referring Physician: Amisha Monique, Family Medicine, Encounter Date: 02/07/2024 Results Created Date Observation Date Name Description Value Unit Range Abnormal Flag Note LastModifiedBy Organization Detail LastModifiedTime 02/07/20 24 02/07/2024 CBC/C OMPLE TE BLD COUNT W/DIF F white blood cells 6.4 x10'3 /uL 4.2-10 .8 Not Available [facility] (Lab) [address] [place], [address], 02/07/2024 21:53:57 02/07/20 24 02/07/2024 CBC/C OMPLE TE BLD COUNT W/DIF F red blood cells 4.59 x10'6 /uL 3.80-5 .20 Not Available [facility] (Lab) [address] [place], [address], 02/07/2024 21:53:57 02/07/20 24 02/07/2024 CBC/C OMPLE TE BLD COUNT W/DIF F hemoglobin 10.2 g/dL 12.0-1 5.6 low Not Available [facility] (Lab) [address] [place], [address], 02/07/2024 21:53:57 02/07/20 24 02/07/2024 CBC/C OMPLE TE BLD COUNT W/DIF F hematocrit 34.8 % 35.7-4 5.7 low Not Available [facility] (Lab) [address] [place], [address], 02/07/2024 21:53:57 02/07/20 24 02/07/2024 CBC/C OMPLE TE BLD COUNT W/DIF F mean red cell volume 75.8 fL 82.0-9 9.0 low Not Available [facility] (Lab) [address] [place], [address], 02/07/2024 21:53:57 02/07/20 24 02/07/2024 CBC/C OMPLE TE BLD COUNT W/DIF F mean red cell hemoglobin 22.2 pg 27.0-3 3.0 low Not Available [facility] (Lab) [address] [place], [address], 02/07/2024 21:53:57 02/07/20 24 02/07/2024 CBC/C OMPLE TE BLD COUNT W/DIF F mean RBC HGB concentratio n 29.3 g/dL 31.0-3 6.0 low Not Available [facility] (Lab) [address] [place], [address], 02/07/2024 21:53:57 02/07/20 24 02/07/2024 CBC/C OMPLE TE BLD COUNT W/DIF F red cell distribution width 16.6 % 11.8-1 5.5 high Not Available [facility] (Lab) [address] [place], [address], 02/07/2024 21:53:57 02/07/20 24 02/07/2024 CBC/C OMPLE TE BLD COUNT W/DIF F platelets 285 x10'3 /uL 150-40 0 Not Available [facility] (Lab) [address] [place], [address], 02/07/2024 21:53:57 02/07/20 24 02/07/2024 CBC/C OMPLE TE BLD COUNT W/DIF F mean platelet volume 10.3 fL 9.0-12 .4 Not Available [facility] (Lab) [address] [place], [address], 02/07/2024 21:53:57 02/07/20 24 02/07/2024 CBC/C OMPLE TE BLD COUNT W/DIF F neutrophils 65.3 % 39.0-7 2.0 Not Available [facility] (Lab) [address] [place], [address], 02/07/2024 21:53:57 02/07/20 24 02/07/2024 CBC/C OMPLE TE BLD COUNT W/DIF F lymphocytes 18.0 % 16.0-4 7.0 Not Available [facility] (Lab) [address] [place], [address], 02/07/2024 21:53:57 04/16/02/07/2024 CBC/C OMPLE TE BLD COUNT W/DIF F monocytes 12.3 % 5.0-12 .0 high Not Available [facility] (Lab) [address] [place], [address], 02/07/2024 21:53:57 02/07/20 24 02/07/2024 CBC/C OMPLE TE BLD COUNT W/DIF F eosinophils 3.6 % 1.0-7. 0 Not Available [facility] (Lab) [address] [place], [address], 02/07/2024 21:53:57 02/07/2002/07/2024 CBC/C OMPLE TE BLD COUNT W/DIF F basophils 0.5 % 0.0-2. 0 Not Available [facility] (Lab) [address] [place], [address], 02/07/2024 21:53:57 02/07/20 24 02/07/2024 CBC/C OMPLE TE BLD COUNT W/DIF F immature granulocytes 0.3 % 0.00-0 .50 Not Available [facility] (Lab) [address] [place], [address], 02/07/2024 21:53:57 02/07/20 24 02/07/2024 CBC/C OMPLE TE BLD COUNT W/DIF F neutrophils, absolute count 4.20 x10'3 /uL 1.5-8. 0 Not Available [facility] (Lab) [address] [place], [address], 02/07/2024 21:53:57 02/07/20 24 02/07/2024 CBC/C OMPLE TE BLD COUNT W/DIF F lymphocytes, absolute count 1.16 x10'3 /uL 1.07-3 .43 Not Available [facility] (Lab) [address] [place], [address], 02/07/2024 21:53:57 02/07/20 24 02/07/2024 CBC/C OMPLE TE BLD COUNT W/DIF F monocytes, absolute count 0.79 x10'3 /uL 0.29-0 .99 Not Available [facility] (Lab) [address] [place], [address], 02/07/2024 21:53:57 02/07/20 24 02/07/2024 CBC/C OMPLE TE BLD COUNT W/DIF F eosinophils, absolute count 0.23 x10'3 /uL 0.02-0 .53 Not Available [facility] (Lab) [address] [place], [address], 02/07/2024 21:53:57 02/07/20 24 02/07/2024 CBC/C OMPLE TE BLD COUNT W/DIF F basophils, absolute count 0.03 x10'3 /uL 0.01-0 .08 Not Available [facility] (Lab) [address] [place], [address], 02/07/2024 21:53:57 02/07/20 24 02/07/2024 CBC/C OMPLE TE BLD COUNT W/DIF F immature granulocytes ,absolute 0.02 x10'3 /uL 0.00-0 .05 Not Available [facility] (Lab) [address] [place], [address], 02/07/2024 21:53:57 02/07/20 24 02/07/2024 CBC/C OMPLE TE BLD COUNT W/DIF F nucleated red blood cells 0.0 % -0 Not Available [facility] (Lab) [address] [place], [address], 02/07/2024 21:53:57 02/07/20 24 02/07/2024 CBC/C OMPLE TE BLD COUNT W/DIF F NRBC# 0.00 x10'3 /uL Not Available [facility] (Lab) [address] [place], [address], 02/07/2024 21:53:57 02/07/20 24 02/07/2024 CBC/C OMPLE TE BLD COUNT W/DIF F anisocytosis OCCASI ONAL Not Available [facility] (Lab) [address] [place], [address], 02/07/2024 21:53:57 02/07/20 24 02/07/2024 CBC/C OMPLE TE BLD COUNT W/DIF F poikilocytos is OCCASI ONAL Not Available [facility] (Lab) [address] [place], [address], 02/07/2024 21:53:57 02/07/20 24 02/07/2024 CBC/C OMPLE TE BLD COUNT W/DIF F hypochromia 1+ Not Available [facility] (Lab) [address] [place], [address], 02/07/2024 21:53:57 02/07/20 24 02/07/2024 CBC/C OMPLE TE BLD COUNT W/DIF F microcytosis OCCASI ONAL Not Available [facility] (Lab) [address] [place], [address], 02/07/2024 21:53:57 02/07/20 24 02/07/2024 HEMOG LOBIN A1C HA1C 7.0 % 4.0-6. 0 high Diabe elis Scree robert Crite ambreen: <5.7% Consi stent with absen ce of diabe elis 5.7-6 .4% Consi stent with incre ased risk for diabe elis (pred iabet es) >OR=6 .5% Consi stent with diabe elis REFER ENCE: Diabe elis Care 2015, 39(King ppl.1 ):s13 -s22 Not Available [facility] (Lab) [address] [place], [address], 02/07/2024 21:47:02 02/07/20 24 02/07/2024 BASIC METAB OLIC PANEL sodium 142 mmol/ L 137-14 5 Not Available [facility] (Lab) [address] [place], [address], 02/07/2024 22:11:55 02/07/20 24 02/07/2024 BASIC METAB OLIC PANEL potassium 4.1 mmol/ L 3.5-5. 1 Not Available [facility] (Lab) [address] [place], [address], 02/07/2024 22:11:55 02/07/20 24 02/07/2024 BASIC METAB OLIC PANEL chloride 110 mmol/ L 98-107 high Not Available [facility] (Lab) [address] [place], [address], 02/07/2024 22:11:55 02/07/20 24 02/07/2024 BASIC METAB OLIC PANEL carbon dioxide 22 mmol/ L 22-30 Not Available [facility] (Lab) [address] [place], [address], 02/07/2024 22:11:55 02/07/20 24 02/07/2024 BASIC METAB OLIC PANEL anion gap 14.1 mmol/ L 14-22 Not Available [facility] (Lab) [address] [place], [address], 02/07/2024 22:11:55 02/07/20 24 02/07/2024 BASIC METAB OLIC PANEL glucose 115 mg/dL 70-99 high Not Available [facility] (Lab) [address] [place], [address], 02/07/2024 22:11:55 02/07/20 24 02/07/2024 BASIC METAB OLIC PANEL BUN 33 mg/dL 8-19 high Not Available [facility] (Lab) [address] [place], [address], 02/07/2024 22:11:55 02/07/20 24 02/07/2024 BASIC METAB OLIC PANEL creatinine 1.32 mg/dL 0.66-1 .25 high Not Available [facility] (Lab) [address] [place], [address], 02/07/2024 22:11:55 02/07/20 24 02/07/2024 BASIC METAB OLIC PANEL GFR 40 Refer ence Range : [place] ge GFR Healt hy Adult : >60 [...] or ethni c subgr oups, such as [facility] nics. Outsi de the valid ated [...] s/kdo qi/gf r_cal culat or Not Available [facility] (Lab) [address] [place], [address], 02/07/2024 22:11:55 02/07/20 24 02/07/2024 BASIC METAB OLIC PANEL calcium 9.7 mg/dL 8.4-10 .2 Not Available [facility] (Lab) [address] [place], [address], 02/07/2024 22:11:55 02/07/20 24 02/07/2024 LIPID PANEL cholesterol 183 mg/dL 140-19 9 NIH RYDER NSUS RECOM MENDA TION FOR TRISTEN STERO L: ADULT CHILD LOW RISK: <200 <170 BORDE RLINE : <200- 239 ----- HIGH RISK: >240 >200 Not Available [facility] (Lab) [address] [place], [address], 02/07/2024 22:11:57 02/07/20 24 02/07/2024 LIPID PANEL triglyceride s 227 mg/dL 0-150 high NIH RYDER NSUS REPOR T RECOM MENDA TION FOR TRIGL YCERI JOHNATHON: ADULT CHILD LOW RISK: <150 ----- BODER LINE: 150-1 99 ----- HIGH RISK: >200 ----- Not Available [facility] (Lab) [address] [place], [address], 02/07/2024 22:11:57 02/07/20 24 02/07/2024 LIPID PANEL HDL cholesterol 51 mg/dL 40- Not Available [facility] (Lab) [address] [place], [address], 02/07/2024 22:11:57 02/07/20 24 02/07/2024 LIPID PANEL [...] WILL NOT BE REPOR HERNAN. Not Available [facility] (Lab) [address] [place], [address], 02/07/2024 22:11:57 02/07/20 24 02/07/2024 HEPAT IC/LI JOE PANEL alkaline phosphatase 101 U/L 38-126 Not Available [facility] (Lab) [address] [place], [address], 02/07/2024 22:12:00 02/07/20 24 02/07/2024 HEPAT IC/LI JOE PANEL alanine aminotransfe rase 28 U/L 0-35 Not Available [facility] (Lab) [address] [place], [address], 02/07/2024 22:12:00 02/07/20 24 02/07/2024 HEPAT IC/LI JOE PANEL aspartate aminotransfe rase 43 U/L 15-37 high Not Available [facility] (Lab) [address] [place], [address], 02/07/2024 22:12:00 02/07/20 24 02/07/2024 HEPAT IC/LI JOE PANEL bilirubin, total 0.50 mg/dL 0.20-1 .30 Not Available [facility] (Lab) [address] [place], [address], 02/07/2024 22:12:00 02/07/20 24 02/07/2024 HEPAT IC/LI JOE PANEL bilirubin, conjugated (direct) 0.02 mg/dL 0.00-0 .30 Not Available [facility] (Lab) [address] [place], [address], 02/07/2024 22:12:00 02/07/20 24 02/07/2024 HEPAT IC/LI JOE PANEL biliurubin,u ncong. (indirect) 0.00 mg/dL 0.00-1 .1 Not Available [facility] (Lab) [address] [place], [address], 02/07/2024 22:12:00 02/07/20 24 02/07/2024 HEPAT IC/LI JOE PANEL total protein 7.2 g/dL 6.3-8. 2 Not Available [facility] (Lab) [address] [place], [address], 02/07/2024 22:12:00 02/07/20 24 02/07/2024 HEPAT IC/LI JOE PANEL albumin 4.2 g/dL 3.0-4. 4 Not Available [facility] (Lab) [address] [place], [address], 02/07/2024 22:12:00 02/07/20 24 02/07/2024 HEPAT IC/LI JOE PANEL globulin 3.0 g/dL 2.6-4. 2 Not Available [facility] (Lab) [address] [place], [address], 02/07/2024 22:12:00 02/07/20 24 02/07/2024 HEPAT IC/LI JOE PANEL A/G ratio 1.4 ratio 1.0-2. 0 Not Available [facility] (Lab) [address] [place], [address], 02/07/2024 22:12:00 02/07/20 24 02/07/2024 T4 FREE free T4 0.73 NG/dL 0.78-2 .19 low Not Available [facility] (Lab) [address] [place], [address], 02/07/2024 22:26:00 02/07/20 24 02/07/2024 VITAM IN D 25-HY DROXY vd25oh 61.8 NG/mL 30-100 Vitam in D Statu s: Defic ient: <20 ng/mL Insuf ficie nt: 20-29 ng/mL Suffi cient : 30-10 0 ng/mL Not Available [facility] (Lab) [address] [place], [address], 02/07/2024 22:36:55 02/07/20 24 02/07/2024 TSH thyroid-stim ulating hormone 1.200 uIU/m L 0.465- 4.680 Not Available [facility] (Lab) [address] [place], [address], 02/07/2024 22:39:06 02/07/2002/07/2024 VITAM IN B12 (JEREMY MARLON ) vb12 >1000 pg/mL 239-93 1 high Not Available [facility] (Lab) [address] [place], [address], 02/07/2024 23:26:12 02/07/20 24 02/07/2024 FOLAT E, SERUM /PLAS MA folate >20.0 NG/mL 2.76-2 0.0 Not Available [facility] (Lab) [address] [place], [address], 02/07/2024 23:26:16 02/15/20 24 02/15/2024 IRON/ TIBC PANEL total iron binding capacity 387 mcg/d L 265-47 5 Not Available [facility] (Lab) [address] [place], [address], 02/15/2024 21:22:02 02/15/2002/15/2024 IRON/ TIBC PANEL % transferrin saturation 15 % 20-55 low Not Available [facility] (Lab) [address] [place], [address], 02/15/2024 21:22:02 02/15/2002/15/2024 IRON/ TIBC PANEL unsaturated iron bind capacity 329 mcg/d L 126-38 2 Not Available [facility] (Lab) [address] [place], [address], 02/15/2024 21:22:02 02/15/2002/15/2024 IRON/ TIBC PANEL iron 58 mcg/d L 42-175 Not Available [facility] (Lab) [address] [place], [address], 02/15/2024 21:22:02 04/24/20 24 02/15/2024 MEKHI TIN ferritin 11 NG/mL 11.1-2 64 low Not Available [facility] (Lab) [address] [place], [address], 02/15/2024 21:27:13 03/17/20 24 03/17/2024 COLOG UARD cologuard result reportable POSITI VE negati ve abnormal POSIT OEWN TEST RESUL T. A posit owen Colog uard resul t shoul d be follo wed with a colon oscop y or visua l exami natio n of the colon . The edmond l value (refe rence range ) for this assay is negat owen. TEST DESCR IPTIO N: Embden site algor ithmi c ashlie sis of [...] years or older , who are at [facility] for color ectal cance r (CRC) . Colog uard has been appro franci for use by the [place] FDA. The perfo rmanc e of Colog uard was estab lishe d in a cross secti onal study of [facility] adult s aged 50-84 . Colog uard perfo rmanc e in patie nts ages 45 to 49 years was estim ated by sub-g roup ashlie sis of near- age group s. Colon oscop ies perfo rmed for a posit owen resul t may find as the most clini dominci signi ficrina t lesio n: color ectal [...] of , [facility] ect[facility]ce [...] at www.c ezio edmonds.c om. Not Available [facility] [address], [place], [address], 03/23/2024 19:34:30 05/23/2005/23/2024 CBC/C OMPLE TE BLD COUNT W/DIF F white blood cells 5.6 x10'3 /uL 4.2-10 .8 Not Available [facility] (Lab) [address] [place], [address], 05/23/2024 19:49:33 05/23/20 24 05/23/2024 CBC/C OMPLE TE BLD COUNT W/DIF F red blood cells 4.63 x10'6 /uL 3.80-5 .20 Not Available [facility] (Lab) [address] [place], [address], 05/23/2024 19:49:33 05/23/20 24 05/23/2024 CBC/C OMPLE TE BLD COUNT W/DIF F hemoglobin 11.6 g/dL 12.0-1 5.6 low Not Available [facility] (Lab) [address] [place], [address], 05/23/2024 19:49:33 05/23/20 24 05/23/2024 CBC/C OMPLE TE BLD COUNT W/DIF F hematocrit 38.2 % 35.7-4 5.7 Not Available [facility] (Lab) [address] [place], [address], 05/23/2024 19:49:33 05/23/20 24 05/23/2024 CBC/C OMPLE TE BLD COUNT W/DIF F mean red cell volume 82.5 fL 82.0-9 9.0 Not Available [facility] (Lab) [address] [place], [address], 05/23/2024 19:49:33 05/23/20 24 05/23/2024 CBC/C OMPLE TE BLD COUNT W/DIF F mean red cell hemoglobin 25.1 pg 27.0-3 3.0 low Not Available [facility] (Lab) [address] [place], [address], 05/23/2024 19:49:33 05/23/20 24 05/23/2024 CBC/C OMPLE TE BLD COUNT W/DIF F mean RBC HGB concentratio n 30.4 g/dL 31.0-3 6.0 low Not Available [facility] (Lab) [address] [place], [address], 05/23/2024 19:49:33 05/23/20 24 05/23/2024 CBC/C OMPLE TE BLD COUNT W/DIF F red cell distribution width 16.1 % 11.8-1 5.5 high Not Available [facility] (Lab) [address] [place], [address], 05/23/2024 19:49:33 05/23/20 24 05/23/2024 CBC/C OMPLE TE BLD COUNT W/DIF F platelets 241 x10'3 /uL 150-40 0 Not Available [facility] (Lab) [address] [place], [address], 05/23/2024 19:49:33 05/23/2005/23/2024 CBC/C OMPLE TE BLD COUNT W/DIF F mean platelet volume 10.7 fL 9.0-12 .4 Not Available [facility] (Lab) [address] [place], [address], 05/23/2024 19:49:33 05/23/20 24 05/23/2024 CBC/C OMPLE TE BLD COUNT W/DIF F neutrophils 63.4 % 39.0-7 2.0 Not Available [facility] (Lab) [address] [place], [address], 05/23/2024 19:49:33 05/23/20 24 05/23/2024 CBC/C OMPLE TE BLD COUNT W/DIF F lymphocytes 20.8 % 16.0-4 7.0 Not Available [facility] (Lab) [address] [place], [address], 05/23/2024 19:49:33 05/23/20 24 05/23/2024 CBC/C OMPLE TE BLD COUNT W/DIF F monocytes 12.7 % 5.0-12 .0 high Not Available [facility] (Lab) [address] [place], [address], 05/23/2024 19:49:33 05/23/20 24 05/23/2024 CBC/C OMPLE TE BLD COUNT W/DIF F eosinophils 2.2 % 1.0-7. 0 Not Available [facility] (Lab) [address] [place], [address], 05/23/2024 19:49:33 05/23/20 24 05/23/2024 CBC/C OMPLE TE BLD COUNT W/DIF F basophils 0.5 % 0.0-2. 0 Not Available [facility] (Lab) [address] [place], [address], 05/23/2024 19:49:33 05/23/2005/23/2024 CBC/C OMPLE TE BLD COUNT W/DIF F immature granulocytes 0.4 % 0.00-0 .50 Not Available [facility] (Lab) [address] [place], [address], 05/23/2024 19:49:33 05/23/20 24 05/23/2024 CBC/C OMPLE TE BLD COUNT W/DIF F neutrophils, absolute count 3.54 x10'3 /uL 1.5-8. 0 Not Available [facility] (Lab) [address] [place], [address], 05/23/2024 19:49:33 05/23/20 24 05/23/2024 CBC/C OMPLE TE BLD COUNT W/DIF F lymphocytes, absolute count 1.16 x10'3 /uL 1.07-3 .43 Not Available [facility] (Lab) [address] [place], [address], 05/23/2024 19:49:33 05/23/2005/23/2024 CBC/C OMPLE TE BLD COUNT W/DIF F monocytes, absolute count 0.71 x10'3 /uL 0.29-0 .99 Not Available [facility] (Lab) [address] [place], [address], 05/23/2024 19:49:33 05/23/20 24 05/23/2024 CBC/C OMPLE TE BLD COUNT W/DIF F eosinophils, absolute count 0.12 x10'3 /uL 0.02-0 .53 Not Available [facility] (Lab) [address] [place], [address], 05/23/2024 19:49:33 05/23/20 24 05/23/2024 CBC/C OMPLE TE BLD COUNT W/DIF F basophils, absolute count 0.03 x10'3 /uL 0.01-0 .08 Not Available [facility] (Lab) [address] [place], [address], 05/23/2024 19:49:33 05/23/20 24 05/23/2024 CBC/C OMPLE TE BLD COUNT W/DIF F immature granulocytes ,absolute 0.02 x10'3 /uL 0.00-0 .05 Not Available [facility] (Lab) [address] [place], [address], 05/23/2024 19:49:33 05/23/20 24 05/23/2024 CBC/C OMPLE TE BLD COUNT W/DIF F nucleated red blood cells 0.0 % -0 Not Available [facility] (Lab) [address] [place], [address], 05/23/2024 19:49:33 05/23/20 24 05/23/2024 CBC/C OMPLE TE BLD COUNT W/DIF F NRBC# 0.00 x10'3 /uL Not Available [facility] (Lab) [address] [place], [address], 05/23/2024 19:49:33 05/23/20 24 05/23/2024 IRON/ TIBC PANEL total iron binding capacity 344 mcg/d L 265-47 5 Not Available [facility] (Lab) [address] [place], [address], 05/23/2024 20:03:33 05/23/20 24 05/23/2024 IRON/ TIBC PANEL % transferrin saturation 25 % 20-55 Not Available [facility] (Lab) [address] [place], [address], 05/23/2024 20:03:33 05/23/20 24 05/23/2024 IRON/ TIBC PANEL unsaturated iron bind capacity 259 mcg/d L 126-38 2 Not Available [facility] (Lab) [address] [place], [address], 05/23/2024 20:03:33 05/23/20 24 05/23/2024 IRON/ TIBC PANEL iron 85 mcg/d L 42-175 Not Available [facility] (Lab) [address] [place], [address], 05/23/2024 20:03:33 05/23/20 24 05/23/2024 MEKHI TIN ferritin 14 NG/mL 11.1-2 64 Not Available [facility] (Lab) [address] [place], [address], 05/23/2024 20:31:08 07/23/20 24 07/20/2024 MAMMO , scree robert, digit al, bilat eral No observ ation record ed. [facility] [address], [place], [address], 07/23/2024 15:12:17 Result Notes None recorded. Problems Name Problem SNOMED Code Status Onset Date Resolution Date Notes Provider Name and Address Organization Details Recorded Time Cellulitis 267394551 Active Not Available [facility] 3 02:52:17 Abscess 518781685 Active Not Available [facility] 3 02:52:17 Backache 377147359 Active Not Available [facility] 3 02:52:17 Dry eyes 863275402 Active Not Available [facility] 3 02:52:17 Liver function tests outside reference range 845256961 Active Not Available [facility] 3 02:52:17 Mammograph y abnormal 290299797 Active Not Available [facility] 3 02:52:18 Spinal stenosis of lumbar region 92420166 Active Not Available [facility] 3 02:52:18 Radiothera py follow-up 012247876 Active Not Available [facility] 3 02:52:18 Steatotic liver disease 976228547 Active Not Available [facility] 3 02:52:18 Abdominal pain 26358870 Active Not Available [facility] 3 02:52:18 Abnormal gait 98713506 Active Not Available [facility] 3 02:52:18 Osteoarthr itis of knee 046364144 Active Not Available [facility] 3 02:52:18 Tremor 76735210 Active Not Available [facility] 3 02:52:18 Degenerati on of lumbar interverte bral disc 75413810 Active Not Available [facility] 3 02:52:18 Muscle weakness 58146789 Active Not Available [facility] 3 02:52:18 Dyspnea 872409159 Active Not Available [facility] 3 02:52:18 Low back pain 384640657 Active Not Available [facility] 3 02:52:18 Persistent cough 947132597 Active Not Available [facility] 3 02:52:18 Enthesopat hy of hip region 67929788 Active Not Available [facility] 3 02:52:19 Knee pain Active Not Available [facility] 3 02:52:19 Bronchitis 99393007 Active Not Available [facility] 3 02:52:19 Drusen of optic disc 57206138 Active Not Available [facility] 3 02:52:19 Depressive disorder 73514585 Active Not Available [facility] 3 02:52:19 Fracture of distal phalanx of finger 52104181 Active Not Available [facility] 3 02:52:19 Arthritis 3009909 Active Not Available [facility] 3 02:52:19 Osteoarthr itis 445182584 Active Not Available [facility] 3 02:52:19 Hypothyroi dism 69361330 Active Not Available [facility] 3 02:52:19 Eczema 07664032 Active Not Available [facility] 3 02:52:19 Paronychia of finger 708890740 Active Not Available [facility] 3 02:52:20 Pain of hip region 32939080 Active Not Available [facility] 3 02:52:20 Cough 79358528 Active Not Available [facility] 3 02:52:20 Upper respirator y infection 10980973 Active Not Available [facility] 3 02:52:20 Hyperlipid emia 45220943 Active Not Available [facility] 3 02:52:20 Intertrigo 34712956 Active Not Available [facility] 3 02:52:20 Essential hypertensi on 87696115 Active Not Available [facility] 3 02:52:20 Diarrhea 88146445 Active Not Available [facility] 3 02:52:21 Chronic cough 06291890 Active Not Available [facility] 3 02:52:21 Urinary tract infectious disease 63343819 Active Not Available [facility] 3 02:52:21 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 32499476 Active Not Available [facility] 3 02:52:21 Paronychia 49708035 Active Not Available [facility] 3 02:52:21 Posterior rhinorrhea 83020223 Active Not Available [facility] 3 02:52:21 Heart murmur 80054180 Active Not Available [facility] 3 02:52:22 Neoplasm of uncertain behavior of skin 44044752 Active Not Available [facility] 3 02:52:22 Diabetes mellitus 18360076 Active 2017 Not Available [facility] 3 02:52:21 Body mass index 30+ - obesity 970964229 Active 2018 Not Available [facility] 3 02:52:17 Allergic rhinitis 41812277 Active 2018 Not Available [facility] 3 02:52:21 Obstructiv e sleep apnea syndrome 58392411 Active 2018 Not Available [facility] 3 02:52:21 Asthma 958336339 Active 2019 Not Available [facility] 3 02:52:18 Aortic valve stenosis 50133689 Active 2020 Not Available [facility] 3 02:52:20 Well controlled type 2 diabetes mellitus 181551419 Active 2022 Aishwarya Rodriguez MD [address], [place], [address] , [facility] 3 15:11:37 Pain of left knee joint 9277705666308 07 Active 2022 EPIFANIO Montano, [facility] 3 14:56:41 Type 2 diabetes mellitus without complicati on 762671700 Active 2022 Amisha Monique MD [address], [address], [place], [address] , [facility] 3 14:12:06 Serum creatinine above reference range 198898736 Active 2022 Amisha Monique MD [address], [place], [address] , [facility] 3 09:07:15 Chronic diarrhea 667036759 Active 2022 Amisha Monique MD [address], [place], [address] , [facility] 3 19:03:03 Pain of left shoulder joint 4572958957983 9109 Active 2022 EPIFANIO Jorgensen, [facility] 3 14:11:37 Vitamin D deficiency 85377367 Active 2022 Amisha Monique MD [address], [place], [address] , [facility] 3 14:15:00 Chronic kidney disease 632592135 Active 2022 Aishwarya Rodriguez MD [address], [place], [address] , [facility] 3 12:14:26 Dyslipidem ia 069099747 Active 2022 Aishwarya Rodriguez MD [address], [place], [address] , [facility] 3 12:25:07 Osteoarthr itis of left knee joint 7636568403941 09 Active 2022 Rea Meadows Gilbert null, [place] - [facility] 3 15:01:20 Restless legs syndrome 28946842 Active 2023 Amisha Monique MD [address], [place], [address] , [facility] 4 19:12:45 Cobalamin deficiency 385352586 Active 2023 Amisha Monique MD [address], [place], [address] , [facility] 4 14:20:08 Dyspnea on exertion 71772045 Active 2023 Amisha Monique MD [address], [place], [address] , [facility] 4 14:24:41 Microcytic anemia 543843580 Active 2023 Amisha Monique MD [address], [place], [address] , [facility] 4 17:45:21 Iron deficiency anemia 87482174 Active 2023 Amisha Monique MD [address], [place], [address] , [facility] [employer] 4 09:59:21 Pain of multiple joints 04185854 Active 2023 OSVALDO Pfeiffer [address] [facility], [facility] [address], [place], [address] , [facility] 16:26:47 Problem Notes None recorded. Procedures Surgical History Date Name Laterality Status Provider Name and Address Organization Details Recorded Time 11/08/19 24 Transitional_Care_ Management completed Renetta Bourgeois RN [facility] 11/08/2023 17:04:27 cholecystectomy completed Not Available [facility] 12/22/2022 02:45:21 Heart Catheterization completed Not Available [facility] 12/22/2022 02:45:21 Ablation completed Not Available [facility] 12/22/2022 02:45:21 colonoscopy completed Not Available [facility] 12/22/2022 02:45:21 oophorectomy completed Not Available [facility] 12/22/2022 02:45:21 Hysterectomy completed Not Available [facility] 12/22/2022 02:45:21 Wrist arthroscopy/surger y completed Not Available [facility] 12/22/2022 02:45:21 Tonsillectomy completed Not Available [facility] 12/22/2022 02:45:21 Cataract Surgery completed Not Available [facility] 12/22/2022 02:45:21 Knee Replacement completed Not Available [facility] 12/22/2022 02:45:21 Imaging Results None recorded. Procedure [...] 1 ml SC x 1 12/20 completed [facility]-[phone] [id number] Not Available Not Available Not [...] n for injection in office 11/08 completed [facility]: [id number] 02-10 Not Available Not Available Not [...] Available Not Available Not Available [employer]arix Quad [id number] (PF) 60 mcg (15 mcg x 4)/0.5 [...] Updated DateTime 4 160.02 cm 34.7 kg/m2 72416.1 g 106 /min 97 % 97 % 146/70 mm[Hg] YOLANDA Winter [facility] [employer] [facility] 4 14:08:21 Date Recorded Body height Body mass index (BMI) Body weight Body temperature Heart rate Oxygen saturation Oxygen saturation in Arterial blood by Pulse oximetry Systolic And Diastolic Provider Name and Address Organization Details Last Updated DateTime 4 160.02 cm 34.9 kg/m2 28437.7 g 99 [degF] 91 /min 97 % 97 % 138/80 mm[Hg] YOLANDA Campos [facility] [employer] [facility] 4 14:44:00 Date Recorded Body height Provider Name an d Address Organization Details Last Updated DateTime 05/23/2024 160.02 cm YOLANDA Winter [facility] [employer] [facility] 05/23/2024 15:40:14 Date Recorded Body height Body mass index (BMI) Body weight Body temperature Heart rate Oxygen saturation Oxygen saturation in Arterial blood by Pulse oximetry Systolic And Diastolic Provider Name and Address Organization Details Last Updated DateTime 4 160.02 cm 34.7 kg/m2 91823.1 g 97.2 [degF] 73 /min 97 % 97 % 138/82 mm[Hg] Renetta Bourgeois RN [facility] [employer] [facility] 4 16:17:08 Social History Question Answer Notes LastModified by Organizat ion Details LastModified Time Tobacco Smoking Status Never Smoker Not Available [facility] 12/22/2022 02:37:36 Do You Have An Advance Directive? No [id number].[id number] Information not available 12/22/2022 Are You Blind Or Do You Have Difficulty Seeing? No MIGRATION.492383 7249 Information not available 12/22/2022 What Is Your Level Of Caffeine Consumption? Moderate MIGRATION.068990 5915 Information not available 12/22/2022 How Much Tobacco Do You Chew? None MIGRATION.226201 5541 Information not available 12/22/2022 In The 14 Days Before Symptom Onset, Have You Had Close Contact With A Laboratory-confirm ed COVID-19 While That Case Was Ill? No MIGRATION.489551 2383 Information not available 12/22/2022 In The 14 Days Before Symptom Onset, Have You Had Close Contact With A Person Who Is Under Investigation For COVID-19 While That Person Was Ill? No MIGRATION.892127 9372 Information not available 12/22/2022 Are You Deaf Or Do You Have Serious Difficulty Hearing? No MIGRATION.222044 5456 Information not available 12/22/2022 What Type Of Diet Are You Following? REGULAR MIGRATION.516672 3194 Information not available 12/22/2022 Which Illicit Or Recreational Drugs Have You Used? None MIGRATION.979031 6423 Information not available 12/22/2022 What Was The Date Of Your Most Recent Tobacco Screening? 06/17/2021 MIGRATION.828913 1818 Information not available 12/22/2022 Do You Have Any Pets? Yes MIGRATION.336527 5477 Information not available 12/22/2022 What Is Your Relationship Status? MIGRATION.528443 2493 Information not available 12/22/2022 How Much Tobacco Do You Smoke? No MIGRATION.057072 5409 Information not available 12/22/2022 Has Tobacco Cessation Counseling Been Provided? No MIGRATION.378401 6951 Information not available 12/22/2022 Have You Recently Traveled Abroad? No MIGRATION.103763 5542 Information not available 12/22/2022 Do You Have Difficulty Walking Or Climbing Stairs? No MIGRATION.933713 6919 Information not available 12/22/2022 Sex: Female Functional Status Question Answer Note LastModified by Organizat ion Details LastModified Time Do you use any illicit or recreational drugs? No MIGRATION.928041 5203 Information not available 12/22/2022 What is your level of alcohol consumption? None MIGRATION.559229 4984 Information not available 12/22/2022 Do you or have you ever used smokeless tobacco? Never used smokeless tobacco MIGRATION.337391 3019 Information not available 12/22/2022 Do you have transportation difficulties? No MIGRATION.960805 2058 Information not available 12/22/2022 Are you able to walk independently without assistance or assistive devices? YESWOREST MIGRATION.718689 3759 Information not available 12/22/2022 Do you have difficulty doing errands alone? No MIGRATION.989317 3180 Information not available 12/22/2022 Are you able to care for yourself independently? Yes MIGRATION.137374 9545 Information not available 12/22/2022 What is your occupation? Retired MIGRATION.754639 2182 Information not available 12/22/2022 Do you have difficulty dressing, bathing, grooming, or toileting? No MIGRATION.918986 6060 Information not available 12/22/2022 Do you or have you ever used e-cigarettes or vape? Never used electronic cigarettes MIGRATION.708482 0271 Information not available 12/22/2022 What is your exercise level? Occasional MIGRATION.297677 3435 Information not available 12/22/2022 Mental Status Question Answer Note LastModified by Organizat ion Details LastModified Time Do you have difficulty concentrating, remembering or making decisions? No MIGRATION.093570666 6 Information not available 12/22/2022 Family History Relationship Description Onset Age of this Age Resolved Age Notes LastModified by Organization Details LastModified Time Father Heart disease MIGRATION.014 [id number] Not available 12/22/2022 02:45:24 Father Cerebrovascu lar accident MIGRATION.427 [id number] Not available 12/22/2022 02:45:25 Father Diabetes mellitus MIGRATION.050 [id number] Not available 12/22/2022 02:45:25 Mother Parkinson's disease MIGRATION.181 [id number] Not available 12/22/2022 02:45:25 Mother Diabetes mellitus MIGRATION.046 [id number] Not available 12/22/2022 02:45:25 Father Family history [...] virus, quadrivalent, preservative 2 completed Not Available [facility] 12/22/2022 03:00:03 COVID-19, mRNA, LNP-S, PF, 30 mcg/0.3 mL dose 2 completed [place] CMA null, [facility] 09/19/2023 14:42:17 Influenza, split virus, quadrivalent, preservative 0 completed [place] CMA null, [facility] 09/19/2023 14:42:17 Influenza, split virus, quadrivalent, preservative 8 completed [place] CMA null, [facility] 09/19/2023 14:42:17 Influenza, split virus, quadrivalent, preservative 7 completed [place] CMA null, [facility] 09/19/2023 14:42:17 Influenza, split virus, quadrivalent, preservative 6 completed [place] CMA null, [facility] 09/19/2023 14:42:17 Influenza, split virus, quadrivalent, preservative 6 completed Not Available [facility] 12/22/2022 03:00:04 Influenza, high-dose, quadrivalent, PF 1 completed Not Available [facility] 12/22/2022 03:00:04 Pneumococcal conjugate PCV 13 8 completed [place] CMA null, [facility] 09/19/2023 14:42:17 pneumococcal polysaccharide PPV23 7 completed Not Available [facility] 12/22/2022 03:00:04 pneumococcal polysaccharide PPV23 5 completed Not Available [facility] 12/22/2022 03:00:04 Past Encounters Encounter ID Performer Location Encounter Start Date Encounter Closed Date Diagnosis/Indication Diagnosis SNOMED-CT Code Diagnosis ICD10 Code Diagnosis IMO Codes Diagnosis Note [id number] LEIDY Gomez [facility] Primary [facility] [place] [address] [facility] [address] [place] [address] 01/01/2021 00:00:00 01/01/2021 15:05:23 [id number] Amisha Monique MD [facility] [place] [address] [place] [address] [address] [place] [address] 02/19/2021 00:00:00 02/19/2021 08:38:33 [id number] Amisha Monique MD [facility] Primary [place] [address] [place] [address] [address] [place] [address] 04/01/2021 00:00:00 04/22/2021 09:51:18 [id number] Amisha Monique MD [facility] Primary [place] [address] [place] [address] [address] [place] [address] 04/21/2021 00:00:00 04/21/2021 20:27:22 [id number] Amisha Monique MD [facility] Primary [place] [address] [place] [address] [address] [place] [address] 04/24/2021 00:00:00 04/24/2021 21:23:47 [id number] Amisha Monique MD [facility] Primary Care [place] [address] [place] [address] [address] [place] [address] 04/29/2021 00:00:00 04/29/2021 14:32:15 [id number] Amisha Monique MD [facility] Primary Care [place] [address] [place] [address] [address] [place] [address] 05/06/2021 00:00:00 05/06/2021 18:34:06 [id number] Aishwarya Rodriguez MD [facility] Endo Suleiman Walters [address] [facility] [address] [place] [address] 05/18/2021 00:00:00 05/18/2021 14:36:08 [id number] [facility] [address] [place] [address] 06/17/2021 00:00:00 06/17/2021 14:45:43 [id number] Amisha Monique MD [facility] Primary [facility] [place] [address] [place] [address] 07/28/2021 00:00:00 07/28/2021 18:19:21 [id number] Amisha Monique MD [facility] Primary Care [facility] [address] [place] [address] 08/21/2021 00:00:00 08/21/2021 20:14:54 [id number] Amisha Monique MD [facility] Primary Care [facility] [address] [place] [address] 09/08/2021 00:00:00 09/14/2021 10:57:19 [id number] Amisha Monique MD [facility] Primary Care [facility] [address] [facility] [address] [facility] [place] [address] 10/19/2021 00:00:00 10/19/2021 14:34:17 [id number] Amisha Monique MD [facility] Primary [facility] [address] [place] [address] 10/29/2021 00:00:00 10/29/2021 17:10:01 [id number] Aishwarya Rodriguez MD [facility] [place] [address] [place] [address] 11/17/2021 00:00:00 11/17/2021 14:29:02 [id number] Amisha Moniuqe MD [facility] Primary [facility] [place] [address] [place] [address] 12/16/2021 00:00:00 12/20/2021 21:28:34 [id number] [facility] [place] [address] [place] [address] 12/22/2021 00:00:00 12/22/2021 14:24:18 [id number] Amisha Monique MD [facility] Primary [facility] [place] [address] [place] [address] 12/22/2021 00:00:00 12/22/2021 16:19:24 [id number] Amisha Monique MD [facility] Primary [facility] [place] [address] [place] [address] 01/13/2022 00:00:00 01/13/2022 13:04:28 [id number] TATIANNA Orozco [facility] Primary [facility] [place] [address] [place] [address] 02/12/2022 00:00:00 02/12/2022 12:18:37 [id number] TATIANNA Orozco [facility] Primary Care [place] [address] [place] [address] 03/05/2022 00:00:00 03/05/2022 10:06:19 [id number] Amisha Monique MD [facility] Primary Care [place] [address] [place] [address] 03/15/2022 00:00:00 03/15/2022 12:23:30 [id number] Amisha Monique MD [facility] Primary Care [place] [address] [place] [address] 03/30/2022 00:00:00 04/21/2022 11:05:00 [id number] Amisha Monique MD [facility] Primary Care [place] [address] [place] [address] 04/21/2022 00:00:00 04/22/2022 08:04:02 [id number] Aishwarya Rodriguez MD [facility] End[facility] [place] [address] [place] [address] 05/18/2022 00:00:00 05/18/2022 15:34:22 [id number] LEIDY Gomez [facility] Primary Care [place] [address] [facility] [address] [place] [address] 06/09/2022 00:00:00 06/09/2022 17:40:02 [id number] Amisha Monique MD [facility] Primary Care [place] [address] [facility] [address] [place] [address] 07/29/2022 00:00:00 07/29/2022 08:40:05 [id number] Amisha Monique MD [facility] Primary Care [place] [address] [place] [address] [address] [place] [address] 08/18/2022 00:00:00 08/18/2022 16:26:34 [id number] Aishwarya Rodriguez MD [facility] Endo [place] [address] [place] [address] 08/23/2022 00:00:00 08/23/2022 19:45:45 [id number] Amisha Monique MD [facility] Primary Care [place] [address] [place] [address] [address] [place] [address] 10/06/2022 00:00:00 10/06/2022 14:21:31 [id number] Andrés Hammond MD [facility] Ortho [place]ake [address] [facility] [address] [place] [address] 12/31/2022 14:48:25 01/03/2023 09:42:58 Pain of left knee joint 7839196855 46951 M25.562 [id number] Amisha Monique MD [facility] Primary Care [place] [address] [place] [address] [address] [place] [address] 01/04/2023 13:55:48 01/04/2023 14:34:40 Essential hypertension 70777789 I10 stableamlo dipine 5 mg daily and losartan/h ctz 100/25 mg dailyf/u in 3 months Type 2 johnny betes mellitus without complication 004356436 E11.9 due for labs from endocrinol ogy Dr. Rodriguez Hypothyroidism 04903600 E03.9 [id number] mAisha Monique MD [facility] Primary Care [facility] [address] [facility] 140 [facility] [address] 02/21/2023 15:14:56 02/21/2023 16:32:48 [id number] Brett RobertsonGOMEZ espinoP [facility] Primary Care [facility] [address] [facility] [address] [facility] [place] [address] 03/04/2023 12:27:01 03/04/2023 15:24:32 [id number] Andrés Hammond MD [facility] Orth[facility] [place] [address] [place] [address] 04/08/2023 14:01:13 04/08/2023 15:02:22 Pain of left shoulder joint 3547063881 9321728 M25.512 [id number] Amisha Monique MD [facility] Care [address] [place] [address] 06/14/2023 13:58:14 06/14/2023 14:31:35 Diabetes mellitus 25807551 E11.9 check labs Essential hypertension 23747464 I10 stableamlo dipine 5 mg daily and losartan/h ctz 100/25 mg dailyf/u in 3 months Hyperlipidemia 28187971 E78.5 Z79.899 Hypothyroidism 84658886 E03.9 Vitamin D deficiency 347 38324 E55.9 [id number] Amisha Monique MD [facility] Primary Care [address] [place] [address] 06/16/2023 15:11:58 11/23/2023 04:03:44 [id number] Aishwarya Rodriguez MD [facility] End[facility] [place] [address] [place] [address] 06/22/2023 11:44:04 06/22/2023 12:29:58 Well controlled type 2 diabetes mellitus 852469913 E11.9 a1c of 6.4%- controlled on lowest dose metformin therapy 250 mg twice daily with meals. Recommende d she continue to incorporat e natural insulin pottery decoration designer s such as pears, apples, cinnamon, alissa and sweet potatoes to help mobilize her endogenous insulin. Recommende d up to 150 minutes of moderate level activity/e xercise weekly. Chronic ki dney disease 708266387 N18.9 Refer to nephrology as Cr jumped from 1.3 to 1.63 mg/dL- recently placed on PPI therapy- advised to stop until she follows with nephrology - she was encouraged to drink up to 64 ozs of water and stay hydrated. She is on lowest dose metformin with ideal A1C control. Hypothyroidism 63143836 E03.9 Continue on unithroid 100 mcg daily [...] and minerals and reduce inflammati on. Dyslipidemia 948835812 E 78.5 Continue statin therapy as LDL [...] answered and refills necessary at visit today. [id number] Amisha Monique MD [facility] Primary Care [place] [address] [facility] [address] [place] [address] 07/06/2023 14:58:32 07/22/2023 18:48:25 [id number] Andrés Hammond MD [facility] Ortho Suleiman Walters [address] [place] [address] 07/13/2023 14:57:18 07/13/2023 16:57:23 Osteoarthritis of left knee joint 2484211672 96384 M17.12 [id number] Amisha Monique MD [facility] Primary Care [place] [address] [facility] [address] [place] [address] 08/16/2023 15:21:18 08/16/2023 16:05:28 [id number] Amisha Monique MD [facility] Primary Care [place] [address] [facility] [address] [place] [address] 09/19/2023 14:25:37 09/19/2023 15:14:12 Chronic diarrhea 534978351 K52.9 ok to do brief trial off metformin to see if it helps diarrheare ferral for Dr. Quinones given [id number] Andrés Hammond MD [facility] [place] [address] [place] [address] 09/23/2023 14:38:29 09/23/2023 16:46:25 Pain of left shoulder joint 0987161084 6568436 M25.254 [id number] Amisha Monique MD [facility] [address] [facility] [address] [place] [address] 11/08/2023 16:54:27 11/08/2023 17:32:00 Transition of care 4571532502 105 Z75.8 Diabetes mellitus 869205 09 E11.9 stay off metformin due to GI s/e and repeat a1c in 3 months Restless l egs syndrome 76426709 G25.81 increase ropinirole up to 2 po qhs and call with update in 4 weeks [id number] Amisha Monique MD [facility] Primary Care [place] [address] [facility] [address] [place] [address] 12/26/2023 11:44:35 12/28/2023 10:15:18 [id number] Amisha Monique MD [facility] Primary Care [place] [address] [facility] [address] [place] [address] 02/07/2024 14:04:14 02/07/2024 14:34:31 Screening for malignant neoplasm of colon 747325457 Z12.11 Chronic ki dney disease 300865139 N18.[address] Ervin Diabetes mellitus 016487 09 E11.9 stable off metforminc an't tolerate due to GI s/esees podiatry and ophtho Essential hypertension 91364631 I10 stableamlo dipine 5 mg daily and losartan/h ctz 100/25 mg dailyf/u in 3 months 02/07/24: stable Dyslipidemia 484446293 E 78.5 Z79.899 Hypothyroidism 77026028 E03.9 Vitamin D deficiency 347 11522 E55.9 Cobalamin deficiency 190 [id number] E53.8 Dyspnea on exertion 6084 5006 R06.09 feels more sob than usual, saw cardiology in October but has noticed it since then [id number] Amisha Monique MD [facility] Primary Care [facility] [address] [facility] [address] [place] [address] 02/15/2024 16:00:04 02/15/2024 16:33:30 [id number] OSVALDO Pfeiffer [facility] Primary Care [facility] [address] [facility] [address] [facility] [place] [address] 04/17/2024 14:31:28 04/17/2024 15:55:16 [id number] OSVALDO Pfeiffer [facility] Primary Care [facility] [address] [facility] [address] [facility] [place] [address] 05/23/2024 15:37:01 05/25/2024 15:29:41 [id number] OSVALDO Pfeiffer [facility] Primary Care [facility] [address] [facility] [address] [facility] [place] [address] 08/07/2024 15:55:55 08/07/2024 16:45:05 Renewal of prescription [id number] Z76.0 Pain of mu ltiple joints 78357111 M25.50 pain to moraima lower extremitie s, low backRom and strength continue to be limiteduna ble to walk through the grocery store/Car Throttleo ss parking lotparking placard informatio n to be filled out Health Concerns Section Related Observation LastModified by Organization Detai ls LastModified Time None Recorded Concern Status LastModified by Organization Details LastModified Time None Recorded Advance Directives Directive N: Payers Insurance Date Sequence Insurance Name Policy Number Policy Palacios Covered Member ID Palacios Member ID Guarantor Name 08/04/2024 1 [place] Katelin Edgar [id number] Katelin Urias Herve 08/13/2024 2 FOR LIFE ( - MEDICARE SUPPLEMENT) Aneesh Edgar [id number] Katelin L Herve Notes Date Note Type [...] to GI s/e Amisha Monique MD [address] [facility], [place], [address], [employer] 03/11/2024 17:23:06 08/07/2024 text/html pt is here for f/u OSVALDO Pfeiffer [address] [facility], [place], [address], Cont[employer] 08/07/2024 16:41:02 OBGyn Episode No OBEpisode recorded.
--- OUTSIDE RECORDS SUMMARY | 2025-08-30 14:58 | XMS_ITS | Clinical Summary ---
Author Organization [facility] [address] Address [address] [place] [address] Care Team Providers Care Pta Name Role Phone Adwoa Ordonez Primary Care [...] to ask her to drive her to [place]. I explained that she could go to [...] controlled. Assessment & Plan (11/24/2022 7:09 PM RELAY REPAIRER): She has balance problem of unclear etiology. [...] diagnosis. 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 or [...] Department Care Team Description 08/28/2025 1:00 PM RELAY REPAIRER Ancillary Procedure [facility] Cardiology at [address] [place] [phone] Dyspnea on exertion 08/22/2025 Telephone [facility] Medical [facility] Cardiology [address] [facility] [address] [place] [address] Alvin Lopez MD 08/15/2025 10:40 AM CDT Office Visit [facility] Gastroenterology [address] [facility] 12th [place] [address] [place] [address] Justin Wing MD Steatohepatitis, non-alcoholic (Primary Dx); IPMN (intraductal papillary mucinous neoplasm) 08/13/2025 Documentation [facility] Movement Disorders [address] [facility] [address] [place] [address] Reba Madsen CMA 07/31/2025 11:00 AM CDT Office Visit [facility] Movement Disorders [address] [facility] 7th [place] [address] Karly Echevarria NP Unspecified abnormalities of gait and mobility (Primary Dx); Abnormal gait; Balance problem 06/21/2025 Telephone [facility] Scheduling [address] [place] [address] Howard Carrero MD PhD Scheduling Appointments 06/13/2025 Telephone [facility] Scheduling [address] [place] [address] Radha Alcaraz, [facility] Scheduling Appointments from Last 3 [...] on file Legal Sex Female 12:56 PM RELAY REPAIRER Gender Identity Female 03/05/2022 12:13 PM CDT [...] DOPPLER/CF WO CONTRAST Routine 08/28/2025 1:39 PM RELAY REPAIRER Dyspnea on exertion EGFR Routine 09/06/2024 2:12 PM RELAY REPAIRER Steatohepatitis, non-alcoholic POCT LIPID PANEL Routine 05/03/2023 2:03 PM CDT Lipid screening DIAGNOSTIC MAMMOGRAM BILATERAL W BIB Schedule Routine, Read Routine (OP Routine) 04/08/2020 12:13 PM CDT Abnormal mammogram from Last 3 Months or Most Recently Relevant to Health Maintenance Results * TRANSTHORACIC ECHO (TTE) COMPLETE W DOPPLER/CF WO CONTRAST (08/28/2025 1:39 PM RELAY REPAIRER) Estimated EF 70-75 % CONS SCIMAGE EF Mod BP 52 % CONS SCIMAGE Anatomical Region Laterality Modality Ultrasound 08/28/2025 12:5 1 PM RELAY REPAIRER Narrative 08/28/2025 3:11 PM RELAY REPAIRER [facility] Cardiology [address], [address], [place] [address] P:[phone] P:[phone] Echocardiographic Report Patient Name: SAL EDGAR L : 1950 Study Date: 08/28/2025 12:51:15 PM Sex: F 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. Left Ventricle: Normal left ventricular [...] By: Wellington Nowak MD 08/28/2025 3:10:21 PM RELAY REPAIRER Procedure Note Wellington Nowak MD - 08/28/2025 [facility] Cardiology [address] [facility], [address], [place] [address] P:[phone] P:[phone] Echocardiographic Report Patient Name: SAL EDGAR L : 1950 Study Date: 08/28/2025 12:51:15 PM Sex: F 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. Left Ventricle: Normal left ventricular [...] By: Wellington Nowak MD 08/28/2025 3:10:21 PM RELAY REPAIRER Alvin Lopez MD CV ECHO PROCEDURES Final Result * (ABNORMAL) eGFR (09/06/2024 2:12 PM RELAY REPAIRER) eGFR 39(L) >=60 mL/min/1. 73 m2 Comment: [...] last reviewed 2021. Blood 09/06/2024 2:12 PM RELAY REPAIRER 09/06/2024 2:29 PM RELAY REPAIRER us Justin Wing MD LAB BLOOD ORDERABLES Final Result [facility] Department [place] [address] * POCT lipid panel (05/03/2023 2:03 PM [...] FOR LIFE MEDICARE FOR LIFE Care Teams Pta Relationship Specialty Start Date End Date Adwoa Ordonez DO [address] [place] [address] PCP - General Family Medicine 11/27/24
--- OUTSIDE RECORDS SUMMARY | 2025-08-30 14:58 | XMS_ITS | Encounter Summary ---
Author Organization [facility] Address [address] [facility] [address] [place] [address] Care Team Providers Care Flat Ironer Name Role Phone Amisha Monique MD Primary Care Provider + Rohan Ordonez ECONOMIC MANAGER Primary Care Provider [phone] Elaine Parker ECONOMIC MANAGER Primary Care Provider [phone] Adwoa Ordonez DO Primary Care Provider Encounter Details Date Type Department Care Team (Late st Contact Info) Description 10/09/2007 Orders Only [facility] Provider, MD Maryam [address] [place] [address] Social History Tobacco Use Types Packs/Day Years Used Date Smoking Tobacco: Never Assessed Comments Unknown Sex and Gender Information Value Date Recorded Sex Assigned at Not on file Legal Sex Female 12:56 PM REVENUE DIRECTOR Gender Identity Female 03/05/2022 12:13 PM CDT [...] on filedocumented in this encounter Care Teams Flat Ironer Relationship Specialty Start Date End Date Amisha Monique MD PCP - General 11/19/16 08/28/24 Rohan Ordonez NP [address] [place] [address] PCP - General Neurology 08/29/24 11/13/24 Elaine Parker NP [address] [place] [address] PCP - General Nurse Practitioner 11/23/24 11/26/24 Adwoa Ordonez DO [address] [place] [address] PCP - General Family Medicine 11/27/24 documented as of this encounter
--- OUTSIDE RECORDS SUMMARY | 2025-08-30 14:58 | XMS_ITS | Encounter Summary ---
Author Organization [facility] Address [facility] [place] [address] Care Team Providers Care Bingo Attendant Name Role Phone Amisha Monique MD Primary Care Provider [phone] Castro Lopez MD Unavailable [phone] Judah Clark MD Unavailable Justin Wing MD Unavailable [phone] Encounter Details Date Type Department Care Team (Late st Contact Info) Description 09/06/2023 Prep for Procedure [facility] Pre-Admission Testing [place], [place] [id number] Laisha Rutledge MD [address] [facility] [address] [place], [place] [id number] Social History Tobacco Use Types Packs/Day Years [...] 6:45 AM Judith Araya RN Active * [place] Suicide Severity Rating Scale (Screener/Recent Self-Report) Question [...] of lower extremities with ulcer and inflammation ([facility]/HCC HHS/HCC) 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 [facility] [address] [place] [address] Referring Physician VASCULAR SURGERY 08/23/23 Justin Wing MD [address] [place] [address] GASTROENTEROLOGY 08/23/23 documented as of this encounter
--- OUTSIDE RECORDS SUMMARY | 2025-08-30 14:58 | XMS_ITS | Encounter Summary ---
Author Organization [facility] Address [address] [facility] [address] [place] [address] Care Team Providers Care Data Processing Systems Consultant Name Role Phone Amisha Monique MD Primary Care Provider + Rohan Ordonez HAND NAILER Primary Care Provider [phone] Elaine Parker HAND NAILER Primary Care Provider [phone] Adwoa Ordonez DO Primary Care Provider Encounter Details Date Type Department Care Team (Late st Contact Info) Description 11/26/2016 Orders Only [facility] Provider, MD Maryam [address] [place] [address] Social History Tobacco Use Types Packs/Day Years Used Date Smoking Tobacco: Never Assessed Comments Unknown Sex and Gender Information Value Date Recorded Sex Assigned at Not on file Legal Sex Female 12:56 PM MANAGER PARK Gender Identity Female 03/05/2022 12:13 PM CDT [...] on filedocumented in this encounter Care Teams Data Processing Systems Consultant Relationship Specialty Start Date End Date Amisha Monique MD PCP - General 11/19/16 08/28/24 Rohan Ordonez NP [address] [place] [address] PCP - General Neurology 08/29/24 11/13/24 Elaine Parker NP [address] [address] PCP - General Nurse Practitioner 11/23/24 11/26/24 Adwoa Ordonez DO [address] [place] [address] PCP - General Family Medicine 11/27/24 documented as of this encounter
--- OUTSIDE RECORDS SUMMARY | 2025-08-30 14:58 | XMS_ITS | Clinical Summary ---
Author Organization [facility] Address [address] [place] [address] Care Team Providers Care Cat Cracker Operator Name Role Phone Amisha Monique MD Primary Care Provider [phone] Castro Lopez MD Unavailable [phone] Judah Clark MD Unavailable Justin Wing MD Unavailable [phone] Allergies Active Allergy Reactions Criticality Noted Date [...] (06/01/2023): Added automatically from request for surgery [id number] Nausea and vomiting, unspecified vomiting type 0 06/01/2023 Overview (06/01/2023): Added automatically from request for surgery [id number] Irregular bowel habits 06/01/2023 Overview (06/01/2023): Added automatically from request for surgery [id number] Pain in joint of left shoulder 04/08/2023 [...] Influenza Adult (Generic) 08/13/2020,01/2019,07/15/2018,2016,07/29/2016,07/25/2016 MMR (MMRII) 03/23/2019 ImageTag COVID-19 (ORIGINAL FORMULATION, PURPLE CAP) mRNA, LNP-S, [...] Hemoglobin A1C 08/08/2024 02/07/2024, 07/28/2022 PHQ-2 (Physician Platinum) 10/24/2024 05/03/2024 COVID-19 Vaccine ( season) 2025 [...] Hand, RN Medical Devices Implanted Type Area Cement Tile Maker Device Identifier Shelf Expiration Date Model / Serial / Lot Orthofix 70mm Rods Implanted:Qty: 2 on 10/04/2023 by Laisha Rutledge MD at [facility] Juan N/A: Spine Lumbar NEW AGE MEDICAL 52-6070 / / Orthofix Set Screw Implanted:Qty: 6 on 10/04/2023 by Laisha Rutledge MD at [facility] Screw N/A: Spine Lumbar NEW AGE MEDICAL 36-2000 / / Orthofix Top Loading Body Implanted:Qty: 6 on 10/04/2023 by Laisha Rutledge MD at [facility] Screw N/A: Spine Lumbar NEW AGE MEDICAL 36-2101 / / Orthofix 6.5x40mm Screw Implanted:Qty: 6 on 10/04/2023 by Laisha Rutledge MD at [facility] Screw N/A: Spine Lumbar NEW [...] Health Maintenance Insurance MEDICARE [employer] Care Teams Cat Cracker Operator Relationship Specialty Start Date End Date Amisha Monique MD [address] [place] [address] PCP - General FAMILY PRACTICE 02/04/22 Castro Lopez MD [address] [facility] [address] [place] [address] CARDIOVASCULAR DISEASE 08/23/23 Judah Clark MD [facility] [address] [place] [address] Referring Physician VASCULAR SURGERY 08/23/23 Justin Wing MD [address] [facility] [address] [place] [address] GASTROENTEROLOGY 08/23/23
--- OUTSIDE RECORDS SUMMARY | 2025-08-30 14:58 | XMS_ITS | Encounter Summary ---
Author Organization [facility] Medical Group Address [address] [facility] [address] [place] [address] Care Team Providers Care Police Sergeant Precinct Name Role Phone Amisha Monique MD Primary Care Provider + Rohan Ordonez CAFETERIA TEAM LEADER Primary Care Provider [phone] Elaine Parker CAFETERIA TEAM LEADER Primary Care Provider Adwoa Ordonez DO Primary Care Provider [phone] Encounter Details Date Type Department Care Team (Late st Contact Info) Description 11/19/2016 Orders Only [facility] Provider, MD Maryam [address] [place] [address] Social History Tobacco Use Types Packs/Day Years Used Date Smoking Tobacco: Never Assessed Comments Unknown Sex and Gender Information Value Date Recorded Sex Assigned at Not on file Legal Sex Female 12:56 PM PLUMBER ASSISTANT Gender Identity Female 03/05/2022 12:13 PM CDT [...] on filedocumented in this encounter Care Teams Police Sergeant Precinct Relationship Specialty Start Date End Date Amisha Monique MD PCP - General 11/19/16 08/28/24 Rohan Ordonez NP [address] [place] [address] PCP - General Neurology 08/29/24 11/13/24 Elaine Parker NP [address] [place] [address] PCP - General Nurse Practitioner 11/23/24 11/26/24 Adwoa Ordonez DO [address] [place] [address] PCP - General Family Medicine 11/27/24 documented as of this encounter
--- OUTSIDE RECORDS SUMMARY | 2025-08-30 14:58 | XMS_ITS | Clinical Summary ---
Author Organization [facility] Address [address] [facility] [place] [address] Care Team Providers Care Light Coil Winder Name Role Phone Amisha Monique MD Primary Care Provider [phone] Source Comments [employer] [facility],non-owned Affiliates and Associated Physician Practices is amultiple site organization consisting of ambulatory clinics and hospital sitesin [place], [place], [place] and [place]. This disclosure is being madepursuant to the Care Everywhere program and may not contain all information available regarding this patient. Last updated 18.[facility] Medications * Be aware that medications may [...] on file Legal Sex Female 6:29 AM BREEDING TECHNICIAN Gender Identity Not on file Sexual Orientation Not on file Last Filed Vital Signs Vital Sign Reading Time Taken Comments Blood Pressure 132/77 09/08/2022 11:59 AM BREEDING TECHNICIAN 116/72 right arm Pulse 80 09/08/2022 11:59 AM BREEDING TECHNICIAN Temperature 36.3 C (97.3 F) 09/08/2022 11:59 AM BREEDING TECHNICIAN Respiratory Rate - - Oxygen Saturation 98% 09/08/2022 11: 59 AM BREEDING TECHNICIAN Inhaled Oxygen Concentration - - Weight 85.7 kg (189 lb) 09/08/2022 11:5 9 AM BREEDING TECHNICIAN Height 160 cm (5' 3) 09/08/2022 11:59 AM BREEDING TECHNICIAN Body Mass Index 33.48 09/08/2022 11:59 AM BREEDING TECHNICIAN Plan of Treatment Health Maintenance Due Date [...] age to complete this topic Insurance MEDICARE [facility] MEDICARE [facility] Care Teams Light Coil Winder Relationship Specialty Start Date End Date Amisha Monique MD [address] [place] [address] JUSTIN Mark [address] PCP - General 04/14/18
[2025-08-30 15:40] LABS: Hematocrit 38.3 % (37.0-47.0); Hemoglobin 12.6 g/dL (12.0-15.0); Immature Granulocyte Percent A 0.3 % (0-0.5); Lymphocytes Absolute Auto 0.70 K/mm3 (0.9-3.2); Mean Corpuscular HGB Conc 32.9 g/dl (32-36); Mean Corpuscular Hemoglobin 25.5 pg (26-34); Mean Corpuscular Volume 77.5 fl (80-100); Nucleated Red Blood Cells Absolute Auto 0.000 K/mm3 (0.0-0.012); Nucleated Red Blood Cells Perc 0.0 % (0.0-0.2); Platelet Count Result 219 k/mm3 (150-375); Red Blood Count 4.94 M/mm3 (4.2-5.4); White Blood Count 7.3 K/mm3 (4.5-10.0)
[2025-08-30 15:52] LABS: Alanine Aminotransferase 21 U/L (6-35); Albumin Level 4.6 g/dL (3.5-5.1); Alkaline Phosphatase 89 U/L (38-126); Anion Gap 16 mmol/L (4-12); Aspartate Amino Transferase 86 U/L (14-36); Bilirubin,Total 0.7 mg/dL (0.2-1.3); Blood Urea Nitrogen 42 mg/dL (7-17); Calcium 9.6 mg/dL (8.4-10.2); Carbon Dioxide 24 mmol/L (22-30); Chloride 85 mmol/L (98-107); Estimated CRCL calculation 15 ml/min; Estimated Glomerular Filt Rate 14; Glucose 114 mg/dL (65-110); Lipase 503 U/L (23-300); Potassium 3.6 mmol/L (3.4-5.0); Sodium 125 mmol/L (137-145); Total Protein 8.0 g/dL (6.3-8.2)
--- NOTE | 2025-08-30 16:26 | ECG_ITS ---
Test Date: 2025-08-30 16:59:02 Measurements Intervals [place] Rate: 64 P: 0 ID: 0 QRS: -41 QRSD: 123 T: 104 QT: 431 QTc: 447 Interpretive Statements ATRIAL FIBRILLATION LEFT AXIS DEVIATION [QRS AXIS < -30] MODERATE INTRAVENTRICULAR CONDUCTION DELAY [105+ ms QRS DURATION, 80+ ms Q/S IN V1/V2, NO Q AND 60+ ms R IN I/aVL/V5/V6] ST DEVIATION AND MODERATE T-WAVE ABNORMALITY, CONSIDER LATERAL ISCHEMIA [-0.1+ mV T-WAVE IN I/aVL/V5/V6] ABNORMAL ECG Electronically Signed On 08-30-2025 17:28:18 PUBLIC HEALTH OUTREACH WORKER by Wellington Nowak M.D.
--- NOTE | 2025-08-30 16:26 | ED.NAVMDI ---
HPI - Nausea/Vomiting/Diarrhea General Chief complaint: Nausea/Vomiting/Diarrhea Stated complaint: DIARRHEA, BLACK AND TARRY Time Seen by Provider: 08/30/25 14:51 Source: patient, RN notes reviewed and other ( had been present for RN report) Limitations: no limitations History of Present Illness HPI Narrative: Patient presents with report of diarrhea that has been black and tarry starting this morning. Yesterday she had abdominal pain as well as nausea vomiting although was nonbloody. She denies any recent travel or antibiotics. She is on iron supplementation which she started taking 2-3 weeks ago. She denies taking any Pepto-Bismol. She has not been coughing up any blood. Not on anticoagulation steroids or NSAIDs though does take ASA. She has been on Monjaro for approximately 6 weeks which she is taking for weight loss. Denies any chest pain. Reportedly difficulty walking and shortness of breath. She has had safe decreased energy and decreased appetite, the latter has been attributed to Monjaro. She was supposed to have an appointment at 2:30pm with Dr Lopez's MED D[facility] to review a recent ECHO she had done for a heart murmur. Spinal cord stimulator reportedly placed approx 1 year ago. She notes that she believes that her nausea and vomiting is due to her dry mouth and throat. She has been coughing for a few weeks but notes that yesterday it seemed to be getting worse. PCP Dr Ordonez. Related Data Home Medications ?Medication ?Instructions ?Recorded ?Confirmed ?Last Taken ?Type aspirin 81 mg tablet 81 mg PO DAILY 09/01/20 08/30/25 08/30/25 09:00 History 81 mg timolol 0.5 % eye drops 1 drp EACH EYE BID 10/08/23 08/30/25 08/29/25 21:00 History 1 drp piroxicam 20 mg capsule 20 mg PO .4xweek PRN Pain 02/12/25 08/30/25 Unknown History lidocaine HCl 4 % topical cream 1 applic topical BID PRN restless 06/18/25 08/30/25 08/30/25 09:00 History (Aspercreme (lidocaine HCl)) leg(s) 1 applic Allergies Allergy/AdvReac Type Severity Reaction Status Date / Time cat dander Allergy Intermediate Congested Verified 08/30/25 20:28 [facility] Past Medical History Medical History Prediabetes Hypothyroidism (acquired) Dietary counseling and surveillance (03/08/17) Body mass index [BMI] 37.0-37.9, adult (08/14/18) Body mass index [BMI] 36.0-36.9, adult (01/06/18) Heart murmur Fatty liver Eczema Dry eye Optic nerve drusen Left wrist fracture Restless leg syndrome Lumbar stenosis Spondylolisthesis at L4-L5 level 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 Asthma Pancreatic cyst Irritable bowel syndrome with both constipation and diarrhea Depression Obstructive sleep apnea Chronic low back pain Diastolic congestive heart failure Aortic stenosis Steatohepatitis Hyperlipidemia Hypothyroidism Surgical History Surgical History Status post laser ablation of incompetent vein right and left History of knee replacement right History of back surgery History of oophorectomy 1977 Hx of cataract surgery H/O colonoscopy History of cholecystectomy H/O: hysterectomy Hx of tonsillectomy Family History Family History Father Diabetes mellitus Family history of lung cancer Lung cancer Hypertension Cerebrovascular accident Asthma Mother Diabetes mellitus Family history of irritable bowel syndrome Asthma Parkinson disease Other Family history of arthritis Family history of cardiovascular disease Family history of congestive heart failure Family history of hearing loss Social History Social History Social History: Katelin is somewhat confident when filling out medical forms. In the last 12 months Katelin has not received any assistance from an organization or program. Smoking status: Never smoker Second hand tobacco smoke exposure: Yes Alcohol intake: never Substance use: never Substance use type: does not use Other substance usage details: reports using prescription medication as MD orders only Last use: last ETOH use when pt was in early 30's Do You Feel Safe in your Home?: Yes Lack of Transportation: No Lack of Food: Never True Current Housing: I Have Housing Concerned About Future Housing: No Difficulty Paying Gas/Electric Bills: No Difficulty Paying for Meds: No Currently Unemployed: No Education: High School Diploma/GED Difficulty w/ Childcare or Family Care: YES Living arrangements: with family Additional living arrangements comments: Gender identity (if verbalized by the patient): Female Spiritual care concerns: No Exam Narrative: GENERAL: Well-appearing, well-nourished, and in no acute distress. HEAD: Normocephalic, atraumatic. EYES: Non injected, non icteric ENT: Nares clear, no rhinorrhea or epistaxis. Gross auditory acuity intact. NECK: Supple. No meningismus. CHEST: Speaking in full sentences. No respiratory distress. HEART: Regular rate and rhythm. . ABDOMEN: Soft, nondistended. No rigidity or guarding. Not peritoneal. No TTP. EXTREMITIES: Normal range of motion. No lower extremity edema. ROLLY: FOBT/Guaic negative. Normal rectal tone. SKIN: Warm, dry, no rash. NEURO: No focal deficits. Alert and oriented. Answering questions. Following commands. Normal speech without aphasia or dysarthria. Able to use her legs to boost herself up in the bed and able to roll to one side by herself. PSYCH: Normal mood and affect. Course Vital Signs Vital signs: Vital Signs Temperature 98.8 F 08/30/25 12:55 Pulse Rate 55 L 08/30/25 12:55 Respiratory Rate 16 08/30/25 12:55 Blood Pressure 99/44 L 08/30/25 12:55 Pulse Oximetry 96 08/30/25 12:55 Temperature 98.8 F 08/30/25 12:55 Pulse Rate 88 08/30/25 19:41 Respiratory Rate 20 08/30/25 19:41 Blood Pressure 113/56 L 08/30/25 19:41 Pulse Oximetry 96 08/30/25 19:41 Oxygen Delivery Room Air 08/30/25 14:44 MDM - Nausea/Vomiting/Diarrhea MDM Narrative Medical decision making narrative: Patient presents with report diarrhea this morning that is described as black and tarry. Yesterday she was having abdominal pain and had an episode of nausea and vomiting. Not on anticoagulation. Did start iron supplementation 2-3 weeks ago. In the emergency department she is afebrile vital signs notable for bradycardia as well as hypotension. Mean arterial pressure 62mmHg but repeat BP normal. Next BP 96/82 (narrow pulse pressure, acceptable MAP, possible error). 500cc fluids ordered, judicious given history of heart failure. The differential for acute ( less than 14d) diarrhea includes infectious etiologies (viral, preformed toxins, toxins formed after colonization, invasive bacteria, and parasites), medications, inflammatory causes (IBD, radiation enteritis, ischemic colitis, diverticulitis), malabsorption, secretory causes, or motility disorders. Lipase mildly elevated but not to a degree to suggest pancreatitis alone. No leukocytosis. Hemoglobin and hematocrit normal as are platelets. Lactic acid normal. Isolated AST elevation. This has previously been demonstrated although slightly worse today. Hyponatremia with sodium 125 although this represents only a 5 mEq drop from July. She has an anion gap though with normal glucose. I suspect this to be due to a degree of starvation. IV fluids containing dextrose ordered. This is an additional 500cc of fluids. In total, this should help with patient's acute renal failure (Cr >3 today from baseline 1-2). Magnesium normal. Repeat H&H is drawn somewhat early although it does show a 1.4g drop in a matter of a few hours, now anemic, and after receiving only 500 cc fluids so far thus less likely dilutional. BNP greater than 25,000 with no prior for comparison although CXR and patient without evidence of volume overload by radiologist's interpretation although it does appear hazy with questionable pulmonary edema on my interpretation. Viral swab negative. Discussed with c t tech and requested Chest CT be added on to imaging given she is already on the table for her CT abd/pelvis. She does ask if we have her ECHO results from earlier in this week but not seen in EMR; placed order for record request. UA with microscopic hematuria. Patient will require admission for her kidney function and her other symptoms. She is in agreement with this especially because she notes that she does have some back pain and this is made worse when she walks and having to go to the bathroom recently has exacerbated this and leaves her feeling potentially unsteady and a fall risk at home. Discussed with information delivery analyst hospitalist JUDAH Umana who accepts admission. Differential Diagnosis Differential diagnosis: Likely traveler's diarrhea, food poisoning, gastroenteritis, clostridium difficile infection, drug-induced nausea and vomiting, dehydration and other (considered GI bleed (upper and lower) etiologies as well) Lab Data Attestation: I reviewed the patient's lab results. 08/30/25 17:08 08/30/25 15:32 Labs: Lab Results 08/30/25 08/30/25 08/30/25 Range/Units 15:32 16:45 17:08 WBC 7.3 (4.5-10.0) K/mm3 RBC 4.94 (4.2-5.4) M/mm3 Hgb 12.6 11.2 L (12.0-15.0) g/dL Hct 38.3 34.4 L (37.0-47.0) % MCV 77.5 L (80-100) fl MCH 25.5 L (26-34) pg MCHC 32.9 (32-36) g/dl RDW 13.4 (11.5-14.5) % Plt Count 219 (150-375) k/mm3 MPV 8.8 (7.4-10.4) fl Immature Gran % (Auto) 0.3 (0-0.5) % Neut % (Auto) 81.4 H (45.5-73.1) % Lymph % (Auto) 9.6 L (18.3-44.2) % [place] % (Auto) 8.4 (2.6-8.5) % Eos % (Auto) 0.0 (0-4.4) % Baso % (Auto) 0.3 (0.2-1.2) % Lymph # (Auto) 0.70 L (0.9-3.2) K/mm3 [place] # (Auto) 0.6 (0.1-0.6) K/mm3 Eos # (Auto) 0.0 (0-0.3) K/mm3 Baso # (Auto) 0.0 (0.0-0.1) K/mm3 Abs Immat Gran (auto) 0.02 (0.00-0.031) K/mm3 Absolute Neuts (auto) 5.9 (1.3-6.7) K/mm3 Absolute Nucleated RBC 0.000 (0.0-0.012) K/mm3 Nucleated RBC % 0.0 (0.0-0.2) % Sodium 125 L (137-145) mmol/L Potassium 3.6 (3.4-5.0) mmol/L Chloride 85 L (98-107) mmol/L Carbon Dioxide 24 (22-30) mmol/L Anion Gap 16 H (4-12) mmol/L BUN 42 H (7-17) mg/dL Creatinine 3.20 H (0.7-1.0) mg/dL Estim Creat Clear Calc 15 ml/min Estimated GFR 14 L (59 - ) Glucose 114 H (65-110) mg/dL Lactic Acid 1.2 (0.7-2.0) mmol/L Calcium 9.6 (8.4-10.2) mg/dL Magnesium 2.0 (1.6-2.3) mg/dL Total Bilirubin 0.7 (0.2-1.3) mg/dL AST 86 H (14-36) U/L ALT 21 (6-35) U/L Alkaline Phosphatase 89 (38-126) U/L Total Creatine Kinase 292 H (30-135) U/L NT-Pro-B Natriuret Pep 63716 H (19.9-100) pg/mL Total Protein 8.0 (6.3-8.2) g/dL Albumin 4.6 (3.5-5.1) g/dL Lipase 503 H (23-300) U/L Urine Color (Yellow) Urine Appearance (Clear) Urine pH (5.0-9.0) Ur Specific [place] (1.001-1.035) Urine Protein (Negative) mg/dL Urine Glucose (UA) (Negative) mg/dL Urine Ketones (Negative) mg/dL Ur Blood (Man) (Negative) Urine Nitrate (Negative) Urine Bilirubin (Negative) Urine Urobilinogen (<2.0) mg/dL Add Ur Microanalysis Leukocyte Esterase Rfl (Negative) SANG/UL Urine RBC (0-2) /hpf Urine WBC (0-3) /hpf Ur Squamous Epith Cells (Few) /hpf Urine Bacteria /hpf Urine Casts Hyaline Casts (None) /lpf Influenza A (RT-PCR) Negative (Negative) Influenza B (RT-PCR) Negative (Negative) RSV (RT-PCR) Negative (Negative) SARS-CoV-2 RNA (RT-PCR) Negative (Negative) 08/30/25 Range/Units 18:31 WBC (4.5-10.0) K/mm3 RBC (4.2-5.4) M/mm3 Hgb (12.0-15.0) g/dL Hct (37.0-47.0) % MCV (80-100) fl MCH (26-34) pg MCHC (32-36) g/dl RDW (11.5-14.5) % Plt Count (150-375) k/mm3 MPV (7.4-10.4) fl Immature Gran % (Auto) (0-0.5) % Neut % (Auto) (45.5-73.1) % Lymph % (Auto) (18.3-44.2) % [place] % (Auto) (2.6-8.5) % Eos % (Auto) (0-4.4) % Baso % (Auto) (0.2-1.2) % Lymph # (Auto) (0.9-3.2) K/mm3 [place] # (Auto) (0.1-0.6) K/mm3 Eos # (Auto) (0-0.3) K/mm3 Baso # (Auto) (0.0-0.1) K/mm3 Abs Immat Gran (auto) (0.00-0.031) K/mm3 Absolute Neuts (auto) (1.3-6.7) K/mm3 Absolute Nucleated RBC (0.0-0.012) K/mm3 Nucleated RBC % (0.0-0.2) % Sodium (137-145) mmol/L Potassium (3.4-5.0) mmol/L Chloride (98-107) mmol/L Carbon Dioxide (22-30) mmol/L Anion Gap (4-12) mmol/L BUN (7-17) mg/dL Creatinine (0.7-1.0) mg/dL Estim Creat Clear Calc ml/min Estimated GFR (59 - ) Glucose (65-110) mg/dL Lactic Acid (0.7-2.0) mmol/L Calcium (8.4-10.2) mg/dL Magnesium (1.6-2.3) mg/dL Total Bilirubin (0.2-1.3) mg/dL AST (14-36) U/L ALT (6-35) U/L Alkaline Phosphatase (38-126) U/L Total Creatine Kinase (30-135) U/L NT-Pro-B Natriuret Pep (19.9-100) pg/mL Total Protein (6.3-8.2) g/dL Albumin (3.5-5.1) g/dL Lipase (23-300) U/L Urine Color Yellow (Yellow) Urine Appearance Clear (Clear) Urine pH 5.0 (5.0-9.0) Ur Specific [place] 1.028 (1.001-1.035) Urine Protein Trace (Negative) mg/dL Urine Glucose (UA) Negative (Negative) mg/dL Urine Ketones Trace H (Negative) mg/dL Ur Blood (Man) 2+ H (Negative) Urine Nitrate Negative (Negative) Urine Bilirubin Negative (Negative) Urine Urobilinogen 1.0 (<2.0) mg/dL Add Ur Microanalysis Reviewed Leukocyte Esterase Rfl Negative (Negative) SANG/UL Urine RBC 11-20 H (0-2) /hpf Urine WBC 0-5 (0-3) /hpf Ur Squamous Epith Cells Occasional (Few) /hpf Urine Bacteria None seen /hpf Urine Casts 11-20 Hyaline Casts Present (None) /lpf Influenza A (RT-PCR) (Negative) Influenza B (RT-PCR) (Negative) RSV (RT-PCR) (Negative) SARS-CoV-2 RNA (RT-PCR) (Negative) Imaging Data Attestation: I personally reviewed and interpreted this imaging study as follows: My impression: True visualization of costophrenic angles appears obscured; questionable pulmonary edema on my independent interpretation. Radiologist's impression: Impressions Chest X-Ray 08/30/25 16:43 IMPRESSION: 1. Portable chest x-ray with no focal acute process. Chest/Abdomen/Pelvis CT 08/30/25 17:58 IMPRESSION: 1. Small pericardial effusion. 2: Mediastinal lymphadenopathy, likely reactive. 3: No findings to account for patient's blood in stool. 4: Small cystic masses in the pancreas which may represent focally dilated pancreatic duct. The differential diagnosis includes pseudocyst, intraductal papillary mucinous neoplasm (IPMN), mucinous cystic neoplasm (MCN), and the less common serous cystadenoma and neuroendocrine tumor. 5: Periumbilical hernia containing fat and fluid. No evidence for bowel obstruction. ECG Data EKG #1: Attestation: I personally reviewed and interpreted this ECG as follows: ECG completion date: 08/30/25 ECG completion time: 16:59 Interpretation: Atrial fibrillation at a rate of 64 beats per minute. QRS 123. QT/QTC 431/447. Poor R-wave progression across the precordial leads. Left axis deviation. There is interventricular conduction delay. No T-wave inversions. Discharge Plan Discharge Clinical Impression: Elevated AST (SGOT), Acute diarrhea, Hyponatremia, Acute renal failure (ARF), Pericardial effusion, Mediastinal lymphadenopathy, Cystic mass of pancreas, Periumbilical hernia, Black tarry stools, Microscopic hematuria Patient Disposition: Still a Patient Condition: Stable Time of Disposition: 18:57
[2025-08-30 16:39] LABS: Magnesium 2.0 mg/dL (1.6-2.3)
[2025-08-30] MEDS: SODIUM CHLORIDE 0.9% IV 500 ML 999 ML IV CONT (16:48)
[2025-08-30 17:11] LABS: NT Pro B Type Natriuretic Pept 25200 pg/mL (19.9-100)
[2025-08-30 17:14] LABS: Hematocrit 34.4 % (37.0-47.0); Hemoglobin 11.2 g/dL (12.0-15.0)
[2025-08-30 17:32] LABS: Influenza A QL RT-PCR Negative (Negative); Influenza B QL RT-PCR Negative (Negative); RSV RNA, RT-PCR Negative (Negative); SARS-CoV-2 RNA PCR Negative (Negative)
[2025-08-30] MEDS: DEXTROSE 5%/0.9% SOD CHL 500 ML 100 ML IV CONT (18:17)
[2025-08-30 18:49] LABS: Add Urine Microscopic? YES; Appearance Urine Clear (Clear); Glucose Urine UA Negative (Negative); Leukocyte Esterase Ur Negative LEU/UL (Negative); Need Manual Microscopic Reviewed; Nitrate Urine Negative (Negative); Specific Grav Ur 1.028 (1.001-1.035)
[2025-08-30] MEDS: ACETAMINOPHEN 500 MG TABLET 1000 MG PO (19:06)
--- NOTE | 2025-08-30 20:27 | ADMGEN ---
This patient, Katelin Edgar, was admitted to [facility] Surg Room 301-01. Patient/family oriented to hospital policies and general routines including ID bracelet, bed and alarms, visiting hours, pain management, procedures, bathroom and other care routines, personal items, smoking policy, room service/diet, and visiting hours. Information on how to activate the Rapid Response Team has been discussed. Patient/Family are encouraged to report perceived risks to care and to ask questions if they do not understand what they are told or what they should do.
[2025-08-30 20:36] LABS: Creatine Kinase 292 U/L (30-135)
[2025-08-30 23:42] LABS: Hematocrit 31.4 % (37.0-47.0); Hemoglobin 10.2 g/dL (12.0-15.0)
[2025-08-30 23:56] LABS: Anion Gap 11 mmol/L (4-12); Blood Urea Nitrogen 41 mg/dL (7-17); Calcium 8.4 mg/dL (8.4-10.2); Carbon Dioxide 22 mmol/L (22-30); Chloride 89 mmol/L (98-107); Estimated CRCL calculation 18 ml/min; Estimated Glomerular Filt Rate 19; Glucose 108 mg/dL (65-110); Potassium 3.1 mmol/L (3.4-5.0); Sodium 122 mmol/L (137-145)
--- NOTE | 2025-08-31 00:30 | PM.IMHP ---
H&P: HPI History of Present Illness Date/Time: 08/31/25 00:30 Chief Complaint: Diarrhea Narrative: 74-year-old female with a past medical history chronic kidney disease stage 4, hepatic steatosis, aortic stenosis, COPD, diastolic heart failure, hypothyroidism and obstructive sleep apnea and obesity who presented to the ER from home due to diarrhea and increased weakness. The patient reports that she has been on Mounjaro for about 6 weeks in attempt to lose weight. She reports that since she started on the medications she is not been interested in eating or drinking anything. She reports her last dose of monte RO was on Tuesday. When she took the medication on Tuesday she did have significant nausea with with multiple episodes of emesis on Tuesday night. But she denies any hematemesis or coffee-ground emesis. She does have a distant history of gastritis noted on EGD in 2021. She did not have any further emesis after Tuesday night. She has been having intermittent constipation. She had taken several doses of MiraLax. She then started having diarrhea on Tuesday and took a dose of Imodium. She reports that when she did have diarrhea it was dark in color. She had incontinence stool while she was in the shower. She denies any abdominal pain at the time of my evaluation. She denies epigastric pain on palpation. She denies taking any Pepto-Bismol recently. She is on iron supplements. She has been having increasing dyspnea on exertion. She had outpatient echocardiogram with Dr. Lopez last week and was supposed to follow-up at the office today for results of her echo but was unable to go due to feeling bad. She reports that she cannot walk across the room without severe shortness of breath. She has become progressively weaker which she was attributing having no appetite and possibly due to her heart. She has been having some mild swelling of her left lower extremity but denies any right lower extremity swelling. She reports that her mouth is been extremely dry even more so than her chronic dry mouth. She denies any chest pain or palpitation she denies any orthopnea. The patient is not on any anticoagulants. Patient is having some difficulty with word finding and does have a listed history of cognitive dysfunction. I a suspect patient has early cognitive impairment and although she is alert oriented x3 is not the best historian. Review of Systems Review of Systems: 12 systems were reviewed with pertinent positives and negatives per HPI. Except as documented in the HPI, all other systems were reviewed and are negative. She reports that her back pain although briefly relieved after she received a nerve stimulator in October has been worse over the last 6 months or so. She denies any loss of bowel or bladder control. She has chronic urinary frequency. She denies dysuria. [facility] Past Medical History Medical History (Updated 08/31/25 @ 05:14 by Ada Estrada DO) Hearing loss, bilateral Cognitive dysfunction Osteoporosis DEXA scan May 2023 History of CVA (cerebrovascular accident) 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 noted on MRI April 2022 Bilateral carotid artery stenosis TMJ (temporomandibular joint disorder) Overactive bladder BPPV (benign paroxysmal positional vertigo) CKD (chronic kidney disease) stage 4, GFR 15-29 ml/min With baseline creatinine between 1.4-1.7 Eczema Dry eye Optic nerve drusen Restless leg syndrome Lumbar stenosis Spondylolisthesis at L4-L5 level 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 Asthma Pancreatic cyst Irritable bowel syndrome with both constipation and diarrhea Depression Obstructive sleep apnea Diastolic congestive heart failure Aortic stenosis Steatohepatitis Hyperlipidemia Hypothyroidism Surgical History Surgical History (Updated 08/30/25 @ 23:28 by Ada Estrada DO) History of nasal septoplasty History of hand surgery (~2003) Removal of mass from right finger Status post cataract extraction of both eyes with insertion of intraocular lens (2016) History of total abdominal hysterectomy and bilateral salpingo-oophorectomy (1988) Status post insertion of spinal cord stimulator (11/07/24) Status post laser ablation of incompetent vein Right leg 2004 left leg 2016 History of back surgery H/O colonoscopy History of cholecystectomy Hx of tonsillectomy (1955) Family History Family History Father Diabetes mellitus Family history of lung cancer Lung cancer Hypertension Cerebrovascular accident Asthma Mother Diabetes mellitus Family history of irritable bowel syndrome Asthma Parkinson disease Other Family history of arthritis Family history of cardiovascular disease Family history of congestive heart failure Family history of hearing loss Social History Social History (Updated 08/31/25 @ 02:00 by Ada Estrada DO) Social History: She lives in her own home with her of 51 years. They are raising their 13-year-old grandson. They have a son who has intellectual disability. They have a daughter who has a history of drug abuse but is currently in remission and recently had a another son who is a month old. She is a lifelong nonsmoker and does not drink or use illicit substances. She still drives. Code status: Full code (she does not Wanna be on long-term ventilator/tracheostomy or have a feeding tube) Surrogate decision maker: Smoking status: Never smoker Second hand tobacco smoke exposure: Yes Alcohol intake: never Substance use: never Substance use type: does not use Other substance usage details: reports using prescription medication as MD orders only Last use: last ETOH use when pt was in early 30's Do You Feel Safe in your Home?: Yes Lack of Transportation: No Lack of Food: Never True Current Housing: I Have Housing Concerned About Future Housing: No Difficulty Paying Gas/Electric Bills: No Difficulty Paying for Meds: No Currently Unemployed: No Education: High School Diploma/GED Difficulty w/ Childcare or Family Care: YES Living arrangements: with family Additional living arrangements comments: Gender identity (if verbalized by the patient): Female Spiritual care concerns: No Meds Home Medications and Allergies Home Medications ?Medication ?Instructions ?Recorded ?Confirmed ?Type aspirin 81 mg tablet 81 mg PO DAILY 09/01/20 08/30/25 History timolol 0.5 % eye drops 1 drp EACH EYE BID 10/08/23 08/30/25 History piroxicam 20 mg capsule 20 mg PO .4xweek PRN Pain 02/12/25 08/30/25 History levothyroxine 100 mcg tablet 100 mcg PO DAILY #90 tabs 04/02/25 08/30/25 Rx (Unithroid) lidocaine HCl 4 % topical cream 1 applic topical BID PRN restless 06/18/25 08/30/25 History (Aspercreme (lidocaine HCl)) leg(s) losartan 100 0.5 tablet PO DAILY #30 tabs 06/24/25 08/30/25 Rx mg-hydrochlorothiazide 25 mg tablet ropinirole 0.5 mg tablet 0.5 mg PO QHS #90 tabs 07/17/25 08/30/25 Rx liothyronine 5 mcg tablet See Rx Instructions .Route 08/05/25 08/30/25 Rx .COMPLEX #90 tabs tirzepatide 5 mg/0.5 mL 5 mg (0.5 mL) subcut WEEKLY #2 mL 08/07/25 08/30/25 Rx subcutaneous pen injector trazodone 100 mg tablet 200 mg (2 x 100 mg) PO QHS PRN 08/07/25 08/30/25 Rx insomnia #180 tabs quetiapine 100 mg tablet 150 mg (1.5 x 100 mg) PO HS 90 08/12/25 08/30/25 Rx days #135 tabs ropinirole 1 mg tablet 1 mg PO QHS #90 tabs 08/16/25 08/30/25 Rx ferrous sulfate 325 mg (65 mg 325 mg PO DAILY #90 tabs 08/19/25 08/30/25 Rx iron) tablet rosuvastatin 10 mg tablet 10 mg PO DAILY #90 tabs 08/19/25 08/30/25 Rx tolterodine 2 mg capsule,extended 2 mg PO DAILY #90 caps 08/19/25 08/30/25 Rx release 24 hr Allergies Allergy/AdvReac Type Severity Reaction Status Date / Time cat dander Allergy Intermediate Congested Verified 08/30/25 20:28 Vital Signs Vital Signs - 24 hr 08/30/25 12:55 08/30/25 14:44 08/30/25 14:57 Temperature 98.8 F Pulse Rate 55 L 82 Respiratory Rate 16 18 Blood Pressure 99/44 L 132/55 L Pulse Oximetry 96 100 Oxygen Delivery Room Air 08/30/25 15:15 08/30/25 16:00 08/30/25 16:45 Temperature Pulse Rate 65 85 64 Respiratory Rate 18 20 18 Blood Pressure 96/82 L 135/61 135/60 Pulse Oximetry 97 100 100 Oxygen Delivery 08/30/25 17:30 08/30/25 18:00 08/30/25 19:41 Temperature Pulse Rate 89 87 88 Respiratory Rate 23 H 21 H 20 Blood Pressure 127/69 122/54 L 113/56 L Pulse Oximetry 98 97 96 Oxygen Delivery 08/30/25 21:27 Temperature 98.0 F Pulse Rate 86 Respiratory Rate 19 Blood Pressure 122/53 L Pulse Oximetry 100 Oxygen Delivery Exam Narrative: Weight 86.3 kg BMI 34.8 Const: Other: Obese, no acute distress, appears older than stated age HENMT: Other: Mucous membranes are overtly dry, head is normocephalic atraumatic Eyes: Other: Pupils are equal and reactive, positive conjunctival pallor, no scleral icterus Neck: Other: No JVD, no lymphadenopathy Resp: Other: Clear to auscultation bilaterally, no increased work of breathing Cardio: Other: Irregularly irregular, rate controlled, 2+ bilateral radial pedal pulses, 2/6 systolic murmur GI: Other: Soft, nontender, nondistended, normoactive bowel sounds Skin: Other: Mild pallor, non jaundice Neuro: Other: Alert oriented x4, speech is clear, no facial asymmetry some mild difficulty with word finding, no localizing neurologic deficits noted during the course of conversation Extrem: Other: 1+ edema left lower extremity no edema right lower extremity Psych: Other: Appropriate mood and affect, pleasant and cooperative H&P: Results Labs Labs: Laboratory Tests 08/30/25 17:08 08/30/25 15:32 08/30/25 08/30/25 08/30/25 15:32 16:45 17:08 WBC 7.3 RBC 4.94 Hgb 12.6 11.2 L Hct 38.3 34.4 L MCV 77.5 L MCH 25.5 L MCHC 32.9 RDW 13.4 Plt Count 219 MPV 8.8 Immature Gran % (Auto) 0.3 Neut % (Auto) 81.4 H Lymph % (Auto) 9.6 L Morrison % (Auto) 8.4 Eos % (Auto) 0.0 Baso % (Auto) 0.3 Lymph # (Auto) 0.70 L Morrison # (Auto) 0.6 Eos # (Auto) 0.0 Baso # (Auto) 0.0 Abs Immat Gran (auto) 0.02 Absolute Neuts (auto) 5.9 Absolute Nucleated RBC 0.000 Nucleated RBC % 0.0 Sodium 125 L Potassium 3.6 Chloride 85 L Carbon Dioxide 24 Anion Gap 16 H BUN 42 H Creatinine 3.20 H Estim Creat Clear Calc 15 Estimated GFR 14 L Glucose 114 H Lactic Acid 1.2 Calcium 9.6 Magnesium 2.0 Total Bilirubin 0.7 AST 86 H ALT 21 Alkaline Phosphatase 89 Total Creatine Kinase 292 H NT-Pro-B Natriuret Pep 23613 H Total Protein 8.0 Albumin 4.6 Lipase 503 H Urine Color Urine Appearance Urine pH Ur Specific [place] Urine Protein Urine Glucose (UA) Urine Ketones Ur Blood (Man) Urine Nitrate Urine Bilirubin Urine Urobilinogen Add Ur Microanalysis Leukocyte Esterase Rfl Urine RBC Urine WBC Ur Squamous Epith Cells Urine Bacteria Urine Casts Hyaline Casts Influenza A (RT-PCR) Negative Influenza B (RT-PCR) Negative RSV (RT-PCR) Negative SARS-CoV-2 RNA (RT-PCR) Negative 08/30/25 18:31 WBC RBC Hgb Hct MCV MCH MCHC RDW Plt Count MPV Immature Gran % (Auto) Neut % (Auto) Lymph % (Auto) Morrison % (Auto) Eos % (Auto) Baso % (Auto) Lymph # (Auto) Morrison # (Auto) Eos # (Auto) Baso # (Auto) Abs Immat Gran (auto) Absolute Neuts (auto) Absolute Nucleated RBC Nucleated RBC % Sodium Potassium Chloride Carbon Dioxide Anion Gap BUN Creatinine Estim Creat Clear Calc Estimated GFR Glucose Lactic Acid Calcium Magnesium Total Bilirubin AST ALT Alkaline Phosphatase Total Creatine Kinase NT-Pro-B Natriuret Pep Total Protein Albumin Lipase Urine Color Yellow Urine Appearance Clear Urine pH 5.0 Ur Specific [place] 1.028 Urine Protein Trace Urine Glucose (UA) Negative Urine Ketones Trace H Ur Blood (Man) 2+ H Urine Nitrate Negative Urine Bilirubin Negative Urine Urobilinogen 1.0 Add Ur Microanalysis Reviewed Leukocyte Esterase Rfl Negative Urine RBC 11-20 H Urine WBC 0-5 Ur Squamous Epith Cells Occasional Urine Bacteria None seen Urine Casts 11-20 Hyaline Casts Present Influenza A (RT-PCR) Influenza B (RT-PCR) RSV (RT-PCR) SARS-CoV-2 RNA (RT-PCR) Impressions Chest X-Ray 08/30/25 16:43 IMPRESSION: 1. Portable chest x-ray with no focal acute process. Chest/Abdomen/Pelvis CT 08/30/25 17:58 IMPRESSION: 1. Small pericardial effusion. 2: Mediastinal lymphadenopathy, likely reactive. 3: No findings to account for patient's blood in stool. 4: Small cystic masses in the pancreas which may represent focally dilated pancreatic duct. The differential diagnosis includes pseudocyst, intraductal papillary mucinous neoplasm (IPMN), mucinous cystic neoplasm (MCN), and the less common serous cystadenoma and neuroendocrine tumor. 5: Periumbilical hernia containing fat and fluid. No evidence for bowel obstruction. EKG: Test Date: 2025-08-30 16:59:02 Measurements Intervals [place] Rate: 64 P: 0 IA: 0 QRS: -41 QRSD: 123 T: 104 QT: 431 QTc: 447 Interpretive Statements ATRIAL FIBRILLATION LEFT AXIS DEVIATION [QRS AXIS < -30] MODERATE INTRAVENTRICULAR CONDUCTION DELAY [105+ ms QRS DURATION, 80+ ms Q/S IN V1/V2, NO Q AND 60+ ms R IN I/aVL/V5/V6] ST DEVIATION AND MODERATE T-WAVE ABNORMALITY, CONSIDER LATERAL ISCHEMIA [-0.1+ mV T-WAVE IN I/aVL/V5/V6] ABNORMAL ECG Assessment and Plan Assessment and plan (1) Black tarry stools: Code(s): K92.1 - Melena Status: Acute (2) Acute diarrhea: Code(s): R19.7 - Diarrhea, unspecified Status: Acute (3) Acute renal failure superimposed on stage 4 chronic kidney disease: Qualifiers: Acute renal failure type: unspecified Qualified Code(s): N17.9 - Acute kidney failure, unspecified; N18.4 - Chronic kidney disease, stage 4 (severe) Code(s): N17.9 - Acute kidney failure, unspecified; N18.4 - Chronic kidney disease, stage 4 (severe) Status: Acute (4) Hyponatremia: Code(s): E87.1 - Hypo-osmolality and hyponatremia Status: Acute (5) GERD (gastroesophageal reflux disease): Qualifiers: Esophagitis presence: esophagitis presence not specified Qualified Code(s): K21.9 - Gastro-esophageal reflux disease without esophagitis Code(s): K21.9 - Gastro-esophageal reflux disease without esophagitis Status: Acute (6) Mediastinal lymphadenopathy: Code(s): R59.0 - Localized enlarged lymph nodes Status: Acute (7) Elevated AST (SGOT): Code(s): R74.01 - Elevation of levels of liver transaminase levels Status: Acute (8) Elevated lipase: Code(s): R74.8 - Abnormal levels of other serum enzymes Status: Acute (9) Acute hypokalemia: Code(s): E87.6 - Hypokalemia Status: Acute (10) Cognitive dysfunction: Code(s): F09 - Unspecified mental disorder due to known physiological condition Status: Acute Plan Patient is having dark stools but Hemoccult was negative in the ER. The patient's hemoglobin did drop after receiving IV fluid hydration but I suspect this was delusional affect. The patient does appear to be overtly volume depleted with markedly dry mucous membranes in this fits with her history of recent use of GLP 1 medications and associated dehydration. I suspect that her diarrheal stools are due to stool softener use in less likely due to acute infection. Will discontinue C diff testing. Will check stool for occult blood if patient has further stools but this is unlikely given her recent use of Imodium at home. The patient does have an elevated AST but this appears to be chronic it is slightly elevated above baseline but again I think this is due to hemoconcentration. She also does have some elevated lipase but denies any epigastric pain to sit just acute pancreatitis and imaging does not demonstrate evidence of acute pancreatitis. Will repeat CBC in a.m.. Will check iron studies with a.m. labs as well as check PT PTT and INR. She does have acute kidney injury superimposed on chronic kidney disease stage 4. Her creatinine has improved with initial IV fluid bolus given in ER and 1 L maintenance fluids. Will give 1 more additional L of maintenance fluids then re-evaluate fluid status with repeat a.m. labs. Patient does have hyponatremia that appears to be acute on chronic and am suspicious for hypovolemic hyponatremia. Will re-evaluate BMP in a.m.. Will avoid nephrotoxic medications. Will hold losartan and hydrochlorothiazide. After hydration patient did develop some hypokalemia 40 mEq potassium chloride tablet has been ordered. Will check phosphorus and magnesium level with a.m. labs. Will check postvoid residual and will hold Myrbetriq. Patient does have some mediastinal lymphadenopathy on imaging of indeterminate clinical significance. Possibly reactive in nature. Patient does have known cognitive dysfunction. Will try to minimize any sedating medications. However will still continue patient's home Requip at trazodone and Seroquel given her known history of bipolar depression. Patient has been admitted as observation status. MEDICAL DECISION MAKING NARRATIVE -Spoke with the ED provider in detail regarding patient's evaluation, workup and management -Patient seen and examined at bedside -Collaborated with patient's nurse at the bedside in detail and addressed all concerns -Labs, electrolytes, radiology, investigations and test results personally reviewed and interpreted unless otherwise specified -ED/Consult/Nursing/Ancilliary notes on the chart reviewed and appreciated -Spoke with patient at bedside and diagnosis and plan of care was discussed. All questions answered. Quality VTE Prophylaxis VTE prophylaxis: mechanical ordered (SCDs) Hospitalist MIPS Advance Care Plan I have confirmed that the patient's Advanced Care Plan is present, code status is documented, or surrogate decision maker is listed in patient medical record.: Yes Medication Reconciliation I have utilized all available resources to obtain, update and review the patients current medications (includes all prescriptions, OTC, herbals, cannabis, and nutritional supplements).: Yes
[2025-08-31] MEDS: SODIUM CHLORIDE 0.9% IV 1,000 ML 100 ML IV CONT (01:57)
[2025-08-31] MEDS: POTASSIUM CHLORIDE 20 MEQ PACKET (FOR LIQUID) 40 MEQ PO (02:00)
[2025-08-31 05:39] VITALS: BP 102/59; PULSE 81; RESP 16; TEMP 36.6; O2SAT 95
[2025-08-31 06:04] LABS: Hematocrit 31.5 % (37.0-47.0); Hemoglobin 10.4 g/dL (12.0-15.0); Mean Corpuscular HGB Conc 33.0 g/dl (32-36); Mean Corpuscular Hemoglobin 25.7 pg (26-34); Mean Corpuscular Volume 78.0 fl (80-100); Platelet Count Result 192 k/mm3 (150-375); Red Blood Count 4.04 M/mm3 (4.2-5.4); White Blood Count 6.0 K/mm3 (4.5-10.0)
[2025-08-31 06:29] LABS: INR 1.1; Prothrombin Time 14.8 Seconds (11.1-14.7)
[2025-08-31 06:30] LABS: Partial Thromboplastin Time 32.0 Seconds (22.3-36.8)
[2025-08-31] MEDS: LEVOTHYROXINE SODIUM 100 MCG TABLET PO (06:30)
[2025-08-31 06:31] LABS: Iron 59 ug/dL (37-170)
[2025-08-31 06:32] LABS: Alanine Aminotransferase 14 U/L (6-35); Albumin Level 3.4 g/dL (3.5-5.1); Alkaline Phosphatase 65 U/L (38-126); Anion Gap 10 mmol/L (4-12); Aspartate Amino Transferase 54 U/L (14-36); Bilirubin,Total 0.5 mg/dL (0.2-1.3); Blood Urea Nitrogen 41 mg/dL (7-17); Calcium 8.6 mg/dL (8.4-10.2); Carbon Dioxide 22 mmol/L (22-30); Chloride 91 mmol/L (98-107); Estimated CRCL calculation 18 ml/min; Estimated Glomerular Filt Rate 18; Glucose 94 mg/dL (65-110); Magnesium 1.8 mg/dL (1.6-2.3); Potassium 3.7 mmol/L (3.4-5.0); Sodium 123 mmol/L (137-145); Total Protein 6.1 g/dL (6.3-8.2)
[2025-08-31 06:41] LABS: Percent Iron Saturation 27 % (20-50)
[2025-08-31 07:02] LABS: Thyroid Stimulating Hormone Reflex 10.400 uIU/mL (0.465-4.68)
--- NOTE | 2025-08-31 07:11 | P.PNIM_ITS ---
Progress Note: A&P Assessment and Plan (1) Black tarry stools: Code(s): K92.1 - Melena Status: Acute Assessment and Plan: * Has not had any episodes of stools since Tuesday as she has taken Imodium * Monitor serum electrolytes, CBC, hemoglobin/hematocrit q.8 hours. If hemoglobin drops below 7 transfuse packed red blood cells * Monitor for bloody bowel movements,chest pain,SOB or dizziness/lightheadedness * May consider GI consult in the morning * DVT Px: SCDs * Avoid anti-coagulations * Stool occult blood (2) Generalized weakness: Code(s): R53.1 - Weakness Status: Acute Assessment and Plan: Endorses generalized weakness for the past several weeks. Has reportedly been on Mounjaro for about 6 weeks, has been dealing with nausea, multiple episodes of emesis, intermittent constipation and diarrhea * Has taken several doses of MiraLax and other stool softeners at home and is now having diarrhea * Took a dose of Imodium on Tuesday for diarrhea after having a darker stool * Denies any CP, abdominal pain, but does endorse exertional dyspnea * Likely multifactorial in nature: DIXIE, electrolyte imbalance, cardiac (structural) * PT/OT evals pending (3) Acute diarrhea: Code(s): R19.7 - Diarrhea, unspecified Status: Acute Assessment and Plan: * See above (4) Acute renal failure superimposed on stage 4 chronic kidney disease: Qualifiers: Acute renal failure type: unspecified Qualified Code(s): N17.9 - Acute kidney failure, unspecified; N18.4 - Chronic kidney disease, stage 4 (severe) Code(s): N17.9 - Acute kidney failure, unspecified; N18.4 - Chronic kidney disease, stage 4 (severe) Status: Acute Assessment and Plan: * Creatinine: 2.54, GFR: 18, BUN: 41 (baseline creatinine appears to be 1.5- 1.7) * IV Fluids: 2L NS * Trend renal function * Trend electrolytes, correct as needed (5) Hyponatremia: Code(s): E87.1 - Hypo-osmolality and hyponatremia Status: Acute Assessment and Plan: * Upon admission: Na one hundred twenty-five * 08/31: Na 123 * Likely hypovolemic hyponatremia * TSH 10.4, Free T4 1.3, Total T3 0.78 * Cortisol pending, urine/serium osmolality pending * SPEP and urine sodium pending * Hold HCTZ, losartan * avoid nephrotoxic medications * Nephrology consult - appreciate further recommendations (6) Mediastinal lymphadenopathy: Code(s): R59.0 - Localized enlarged lymph nodes Status: Acute Assessment and Plan: * Indeterminate clinical significance * Likely reactive in nature (7) Elevated lipase: Code(s): R74.8 - Abnormal levels of other serum enzymes Status: Acute Assessment and Plan: * Lipase on 08/30: 503 * Denies any abdominal pain * Abd CT: Small cystic masses in the pancreas which may represent focally dilated pancreatic duct. The differential diagnosis includes pseudocyst, intraductal papillary mucinous neoplasm (IPMN), mucinous cystic neoplasm (MCN), and the less common serous cystadenoma and neuroendocrine tumor. * Imagining not suggestive of pancreatitis (8) Acute hypokalemia: Code(s): E87.6 - Hypokalemia Status: Acute Assessment and Plan: * Upon admission, K 3.6 * After bolus of IVFs, K 3.1 * Given 40 meq oral supplementation * 08/31: K 3.7 * Continue to monitor daily labs (9) Cognitive dysfunction: Code(s): F09 - Unspecified mental disorder due to known physiological condition Status: Acute Assessment and Plan: * minimize any sedating medications * continue patient's home Requip at trazodone and Seroquel given her known history of bipolar depression (10) Hypothyroidism: Qualifiers: Hypothyroidism type: unspecified Qualified Code(s): E03.9 - Hypothyroidism, unspecified Code(s): E03.9 - Hypothyroidism, unspecified Status: Chronic Assessment and Plan: * continue levothyroxine * TSH 10.4, Free T4 1.3, Total T3 0.78 Subjective Date/time seen: 08/31/25 07:11 Interval history: 74-year-old female with a past medical history chronic kidney disease stage 4, hepatic steatosis, aortic stenosis, COPD, diastolic heart failure, hypothyroidism and obstructive sleep apnea and obesity who presented to the ER from home due to diarrhea and increased weakness. 08/31/2025 Patient sitting comfortably in bed at time of examination. Denies any chest pain, shortness of breath, nausea/vomiting or abdominal pain. She just states that she feels weak at this time. Does not appear fluid overloaded on exam. Still remains hyponatremic, with underlying DIXIE superimposed on CKD, Nephrology consulted, appreciate further recommendations. Cardiology consulted -recommend proceeding with a transesophageal echocardiogram if still admitted next week. Review of Systems Review of Systems: 12 systems were reviewed with pertinent positives and negatives per HPI. Except as documented in the HPI, all other systems were reviewed and are negative. She reports that her back pain although briefly relieved after she received a nerve stimulator in October has been worse over the last 6 months or so. She denies any loss of bowel or bladder control. She has chronic urinary frequency. She denies dysuria. Exam Narrative: Weight 86.3 kg BMI 34.8 Const: Other: Obese, no acute distress, appears older than stated age HENMT: Other: Mucous membranes are overtly dry, head is normocephalic atraumatic Eyes: Other: Pupils are equal and reactive, positive conjunctival pallor, no scleral icterus Neck: Other: No JVD, no lymphadenopathy Resp: Other: Clear to auscultation bilaterally, no increased work of breathing Cardio: Other: Irregularly irregular, rate controlled, 2+ bilateral radial pedal pulses, 2/6 systolic murmur GI: Other: Soft, nontender, nondistended, normoactive bowel sounds Skin: Other: Mild pallor, non jaundice Neuro: Other: Alert oriented x4, speech is clear, no facial asymmetry some mild difficulty with word finding, no localizing neurologic deficits noted during the course of conversation Extrem: Other: 1+ edema left lower extremity no edema r ight lower extremity Psych: Other: Appropriate mood and affect, pleasant and cooperative Objective Data Vital Signs Vital Signs: Vital Signs - 24 hr 08/30/25 12:55 08/30/25 14:44 08/30/25 14:57 Temperature 98.8 F Pulse Rate 55 L 82 Respiratory Rate 16 18 Blood Pressure 99/44 L 132/55 L Pulse Oximetry 96 100 Oxygen Delivery Room Air 08/30/25 15:15 08/30/25 16:00 08/30/25 16:45 Temperature Pulse Rate 65 85 64 Respiratory Rate 18 20 18 Blood Pressure 96/82 L 135/61 135/60 Pulse Oximetry 97 100 100 Oxygen Delivery 08/30/25 17:30 08/30/25 18:00 08/30/25 19:41 Temperature Pulse Rate 89 87 88 Respiratory Rate 23 H 21 H 20 Blood Pressure 127/69 122/54 L 113/56 L Pulse Oximetry 98 97 96 Oxygen Delivery 08/30/25 20:08 08/30/25 21:27 08/31/25 05:39 Temperature 98.0 F 97.8 F Pulse Rate 86 86 81 Respiratory Rate 19 19 16 Blood Pressure 122/53 L 102/59 L Pulse Oximetry 100 100 95 Oxygen Delivery Room Air Intake/Output Intake/Output: Intake & Output 08/28/25 08/29/25 08/30/25 08/31/25 23:59 23:59 23:59 23:59 Intake Total 920 480 Output Total 470 Balance 450 480 Meds/Results Medications: Active Medications Generic Name Dose Route Start Last Admin Trade Name Freq PRN Reason Stop Dose Admin Acetaminophen 650 mg 08/30/25 18:57 Acetaminophen 325 Mg Tablet PO Q4H PRN Mild Pain (1-3) or Fever Aspirin 81 mg 08/31/25 09:00 Aspirin 81 Mg Enteric Tablet PO DAILY MARIANELA Ferrous Sulfate 325 mg 08/31/25 11:00 Ferrous Sulfate 325 Mg Tablet PO DAILY@1100 [facility] Sodium Chloride 1,000 mls @ 100 mls/hr 08/31/25 01:20 08/31/25 01:57 Normal Saline Iv IV CONT 08/31/25 11:19 100 mls/hr .Q10H MARIANELA Administration Levothyroxine Sodium 100 mcg 08/31/25 06:30 08/31/25 06:30 Levothyroxine Sodium 100 Mcg Tablet PO 100 mcg DAILY@0630 MARIANELA Administration Liothyronine Sodium 5 mcg 08/31/25 21:00 Liothyronine Sodium 5 Mcg Tablet PO HS MARIANELA Ondansetron HCl 4 mg 08/30/25 18:57 Ondansetron Inj 4 Mg/2 Ml Vial IV PUSH Q4H PRN Nausea Quetiapine Fumarate 150 mg 08/31/25 01:20 08/31/25 02:00 Quetiapine Fumarate 25 Mg Tablet PO 150 mg HS MARIANELA Administration Ropinirole HCl 0.5 mg 08/31/25 01:20 08/31/25 01:57 Ropinirole Hcl 0.5 Mg Tablet PO 0.5 mg QHS MARIANELA Administration Ropinirole HCl 1 mg 08/31/25 01:20 08/31/25 01:57 Ropinirole Hcl 1 Mg Tablet PO 1 mg QHS MARIANELA Administration Timolol Maleate 1 drop 08/31/25 09:00 Timolol Maleate 0.5% Op Soln 5 Ml Bottle EACH EYE BID MARIANELA Trazodone HCl 200 mg 08/31/25 01:15 08/31/25 01:57 Trazodone Hcl 50 Mg Tablet PO 200 mg QHS PRN Administration Insomnia Trolamine Salicylate 1 applic 08/31/25 04:02 Trolamine Salicylate 10% (*Bkc) 113 Gm Cream TOPICAL BID PRN restless leg(s) Radiology Results: ITS Impressions Chest X-Ray 08/30/25 16:43 IMPRESSION: 1. Portable chest x-ray with no focal acute process. Chest/Abdomen/Pelvis CT 08/30/25 17:58 IMPRESSION: 1. Small pericardial effusion. 2: Mediastinal lymphadenopathy, likely reactive. 3: No findings to account for patient's blood in stool. 4: Small cystic masses in the pancreas which may represent focally dilated pancreatic duct. The differential diagnosis includes pseudocyst, intraductal papillary mucinous neoplasm (IPMN), mucinous cystic neoplasm (MCN), and the less common serous cystadenoma and neuroendocrine tumor. 5: Periumbilical hernia containing fat and fluid. No evidence for bowel obstruction. Labs Labs: Laboratory Results - last 24 hr 08/30/25 08/30/25 08/30/25 15:32 16:45 17:08 WBC 7.3 RBC 4.94 Hgb 12.6 11.2 L Hct 38.3 34.4 L MCV 77.5 L MCH 25.5 L MCHC 32.9 RDW 13.4 Plt Count 219 MPV 8.8 Immature Gran % (Auto) 0.3 Neut % (Auto) 81.4 H Lymph % (Auto) 9.[address] [place] % (Auto) 8.4 Eos % (Auto) 0.0 Baso % (Auto) 0.3 Lymph # (Auto) 0.[address] [place] # (Auto) 0.6 Eos # (Auto) 0.0 Baso # (Auto) 0.0 Abs Immat Gran (auto) 0.02 Absolute Neuts (auto) 5.9 Absolute Nucleated RBC 0.000 Nucleated RBC % 0.0 PT INR APTT Sodium 125 L Potassium 3.6 Chloride 85 L Carbon Dioxide 24 Anion Gap 16 H BUN 42 H Creatinine 3.20 H Estim Creat Clear Calc 15 Estimated GFR 14 L Glucose 114 H Lactic Acid 1.2 Calcium 9.6 Phosphorus Magnesium 2.0 Iron TIBC % Saturation Total Bilirubin 0.7 AST 86 H ALT 21 Alkaline Phosphatase 89 Total Creatine Kinase 292 H NT-Pro-B Natriuret Pep 73688 H Total Protein 8.0 Albumin 4.6 Lipase 503 H TSH (Reflex) Urine Color Urine Appearance Urine pH Ur Specific [place] Urine Protein Urine Glucose (UA) Urine Ketones Ur Blood (Man) Urine Nitrate Urine Bilirubin Urine Urobilinogen Add Ur Microanalysis Leukocyte Esterase Rfl Urine RBC Urine WBC Ur Squamous Epith Cells Urine Bacteria Urine Casts Hyaline Casts Influenza A (RT-PCR) Negative Influenza B (RT-PCR) Negative RSV (RT-PCR) Negative SARS-CoV-2 RNA (RT-PCR) Negative 08/30/25 08/30/25 08/31/25 18:31 23:28 05:20 WBC 6.0 RBC 4.04 L Hgb 10.2 L 10.4 L Hct 31.4 L 31.5 L MCV 78.0 L MCH 25.7 L MCHC 33.0 RDW 13.3 Plt Count 192 MPV 9.2 Immature Gran % (Auto) Neut % (Auto) Lymph % (Auto) [place] % (Auto) Eos % (Auto) Baso % (Auto) Lymph # (Auto) [place] # (Auto) Eos # (Auto) Baso # (Auto) Abs Immat Gran (auto) Absolute Neuts (auto) Absolute Nucleated RBC Nucleated RBC % PT 14.8 H INR 1.1 APTT 32.0 Sodium 122 L 123 L Potassium 3.1 L 3.7 Chloride 89 L 91 L Carbon Dioxide 22 22 Anion Gap 11 10 BUN 41 H 41 H Creatinine 2.54 H 2.64 H Estim Creat Clear Calc 18 18 Estimated GFR 19 L 18 L Glucose 108 94 Lactic Acid Calcium 8.4 8.6 Phosphorus 4.4 Magnesium 1.8 Iron 59 TIBC 222 L % Saturation 27 Total Bilirubin 0.5 AST 54 H ALT 14 Alkaline Phosphatase 65 Total Creatine Kinase NT-Pro-B Natriuret Pep Total Protein 6.1 L Albumin 3.4 L Lipase TSH (Reflex) 10.400 H Urine Color Yellow Urine Appearance Clear Urine pH 5.0 Ur Specific [place] 1.028 Urine Protein Trace Urine Glucose (UA) Negative Urine Ketones Trace H Ur Blood (Man) 2+ H Urine Nitrate Negative Urine Bilirubin Negative Urine Urobilinogen 1.0 Add Ur Microanalysis Reviewed Leukocyte Esterase Rfl Negative Urine RBC 11-20 H Urine WBC 0-5 Ur Squamous Epith Cells Occasional Urine Bacteria None seen Urine Casts 11-20 Hyaline Casts Present Influenza A (RT-PCR) Influenza B (RT-PCR) RSV (RT-PCR) SARS-CoV-2 RNA (RT-PCR) Quality VTE Prophylaxis VTE prophylaxis: mechanical ordered (SCDs)
[2025-08-31 07:13] LABS: Ferritin 79.50 ng/mL (11.1-264)
[2025-08-31 07:32] LABS: Free T4 Free Thyroxine Reflex 1.30 ng/dL (0.78-2.19)
[2025-08-31 07:44] LABS: Vitamin B12 > 1000.0 pg/mL (239-931)
[2025-08-31 08:54] LABS: Total Triiodothyronine (T3) 0.78 NG/ML (0.82-1.58)
[2025-08-31] MEDS: TIMOLOL MALEATE 0.5% OP SOLN 5 ML BOTTLE 1 DROP EACH EYE ×2 (08:57→17:19)
[2025-08-31] MEDS: ASPIRIN 81 MG ENTERIC TABLET PO (08:57)
--- NOTE | 2025-08-31 09:25 | PM.CNCAR ---
Assessment and Plan Assessment and plan (1) Aortic valve disease: Code(s): I35.9 - Nonrheumatic aortic valve disorder, unspecified Status: Acute Assessment and Plan: she does have moderate mixed aortic valvular disease with moderate and moderate AI. Valve area calculated 1.2 cm2 with moderate aortic regurgitation. This is worse than cardiac catheterization results from last year. By examination also her valve appears to be at least moderately stenotic. (2) Mitral valve disease: Code(s): I05.9 - Rheumatic mitral valve disease, unspecified Status: Acute Assessment and Plan: Severe mitral annular calcification with [id number] MR and at least mild mitral stenosis with mean gradient of 11. (3) Pulmonary hypertension: Code(s): I27.20 - Pulmonary hypertension, unspecified Status: Acute Assessment and Plan: Moderate. Probably related to left heart disease including diastolic dysfunction and valvular heart disease. (4) Diastolic congestive heart failure: Qualifiers: Heart failure chronicity: chronic Qualified Code(s): I50.32 - Chronic diastolic (congestive) heart failure Code(s): I50.30 - Unspecified diastolic (congestive) heart failure Status: Chronic Assessment and Plan: Not decompensated. (5) Pericardial effusion: Code(s): I31.39 - Other pericardial effusion (noninflammatory) Status: Acute Assessment and Plan: Small (6) Dyspnea on exertion: Code(s): R06.09 - Other forms of dyspnea Status: Acute Assessment and Plan: dyspnea is likely multifactorial. She does have moderate pulmonary hypertension as well as valvular heart disease And diastolic heart failure.. (7) Mobitz type 1 second degree AV block: Code(s): I44.1 - Atrioventricular block, second degree Status: Acute Assessment and Plan: will start her on telemetry. KCL 20 mg p.o. x1 for hypokalemia Plan Overall, I do not think that her cardiac situation is the cause of her weakness and GI issues that led her to being admitted but she does have been dyspnea on exertion and the above abnormal echocardiogram showing mixed aortic and mitral valve disease. She is also now hyponatremic as she has received some IV fluids. She is likely going to be here a couple of days. My recommendation either as an inpatient or an outpatient is for her to undergo a transesophageal echocardiogram. This can be performed as an outpatient if she is still admitted next week, would proceed with a transesophageal echocardiogram at that point. Will defer hyponatremia workup as well as worsening anemia workup History of Present Illness History of Present Illness Consult date/time: 08/31/25 09:25 Requesting physician: Ada Estrada DO Consult reason: Other (Echo results and dyspnea on exertion) Reason For Visit: DIARRHEA, BLACK AND TARRY Narrative: Date of service 08/31/2025 Reason for consultation: Echo results and dyspnea on exertion Requesting provider: Dr. Estrada History: patient is a 74-year-old female patient of Dr. Lopez seen Has a history of aortic stenosis, diastolic heart failure who came to hospital because of increased weakness, diarrhea, black stools. Reportedly has been on the monitor RO for about 6 weeks and attempt to lose weight and that since that time, she has had significantly decreased p.o. intake. Earlier in the week she had some nausea and vomiting. She has been dealing with some constipation and took MiraLax. She then had diarrhea and said that she thought the diarrhea and it appeared to be dark in color. She short of breath with minor activity such as walking across the room. No swelling, syncope, chest pain. Does have dizziness but dizziness occurs or if she rolls over in bed and has Vertiginous. No palpitations. She was found to be in acute on chronic renal failure and has been receiving some IV fluids. She is also anemic and still is complaining of some generalized weakness. Review of Systems Review of Systems: All systems reviewed & are unremarkable except as noted in HPI and below Constitutional: Constitutional: Reports fatigue and Reports lethargy Eyes: Eyes: Denies blurry vision ENT: Reports Normal hearing present Cardiovascular: Cardiovascular: Denies chest pain Respiratory: Respiratory: Reports dyspnea on exertion Gastrointestinal: Gastrointestinal: Denies abdominal pain, Reports melena, Reports diarrhea, Reports nausea and Reports vomiting Genitourinary: Genitourinary: Denies hematuria Musculoskeletal: Musculoskeletal: Denies back pain Integumentary/Breasts: Skin/Breast: Denies pruritus Neurologic: Denies Abnormal speech present Psychiatric: Psychiatric: Denies anxiety Endocrine: Endocrine: Denies excessive sweating Hematologic/Lymphatic: Hematologic/Lymphatic: Denies easy bleeding Allergic/Immunologic: Allergic/Immunologic: Denies GI upset with certain foods PMFSH Past Medical History Medical History (Updated 08/31/25 @ 09:37 by Wellington Nowak MD) Mobitz type 1 second degree AV block Pulmonary hypertension Mitral valve disease Aortic valve disease Hearing loss, bilateral Cognitive dysfunction Osteoporosis DEXA scan May 2023 History of CVA (cerebrovascular accident) 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 noted on MRI April 2022 Bilateral carotid artery stenosis TMJ (temporomandibular joint disorder) Overactive bladder BPPV (benign paroxysmal positional vertigo) CKD (chronic kidney disease) stage 4, GFR 15-29 ml/min With baseline creatinine between 1.4-1.7 Eczema Dry eye Optic nerve drusen Restless leg syndrome Lumbar stenosis Spondylolisthesis at L4-L5 level 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 Asthma Pancreatic cyst Irritable bowel syndrome with both constipation and diarrhea Depression Obstructive sleep apnea Diastolic congestive heart failure Aortic stenosis Steatohepatitis Hyperlipidemia Hypothyroidism Surgical History Surgical History (Updated 08/30/25 @ 23:28 by Ada Estrada DO) History of nasal septoplasty History of hand surgery (~2003) Removal of mass from right finger Status post cataract extraction of both eyes with insertion of intraocular lens (2016) History of total abdominal hysterectomy and bilateral salpingo-oophorectomy (1988) Status post insertion of spinal cord stimulator (11/07/24) Status post laser ablation of incompetent vein Right leg 2005 left leg 2017 History of back surgery H/O colonoscopy History of cholecystectomy Hx of tonsillectomy (1955) Family History Family History Father Diabetes mellitus Family history of lung cancer Lung cancer Hypertension Cerebrovascular accident Asthma Mother Diabetes mellitus Family history of irritable bowel syndrome Asthma Parkinson disease Other Family history of arthritis Family history of cardiovascular disease Family history of congestive heart failure Family history of hearing loss Social History Social History (Updated 08/31/25 @ 02:00 by Ada Estrada DO) Social History: She lives in her own home with her of 51 years. They are raising their 13-year-old grandson. They have a son who has intellectual disability. They have a daughter who has a history of drug abuse but is currently in remission and recently had a another son who is a month old. She is a lifelong nonsmoker and does not drink or use illicit substances. She still drives. Code status: Full code (she does not Wanna be on long-term ventilator/tracheostomy or have a feeding tube) Surrogate decision maker: Smoking status: Never smoker Second hand tobacco smoke exposure: Yes Alcohol intake: never Substance use: never Substance use type: does not use Other substance usage details: reports using prescription medication as MD orders only Last use: last ETOH use when pt was in early 30's Do You Feel Safe in your Home?: Yes Lack of Transportation: No Lack of Food: Never True Current Housing: I Have Housing Concerned About Future Housing: No Difficulty Paying Gas/Electric Bills: No Difficulty Paying for Meds: No Currently Unemployed: No Education: High School Diploma/GED Difficulty w/ Childcare or Family Care: YES Living arrangements: with family Additional living arrangements comments: Gender identity (if verbalized by the patient): Female Spiritual care concerns: No Meds Home Medications and Allergies Home Medications ?Medication ?Instructions ?Recorded ?Confirmed ?Type aspirin 81 mg tablet 81 mg PO DAILY 09/01/20 08/30/25 History timolol 0.5 % eye drops 1 drp EACH EYE BID 10/08/23 08/30/25 History piroxicam 20 mg capsule 20 mg PO .4xweek PRN Pain 02/12/25 08/30/25 History levothyroxine 100 mcg tablet 100 mcg PO DAILY #90 tabs 04/02/25 08/30/25 Rx (Unithroid) lidocaine HCl 4 % topical cream 1 applic topical BID PRN restless 06/18/25 08/30/25 History (Aspercreme (lidocaine HCl)) leg(s) losartan 100 0.5 tablet PO DAILY #30 tabs 06/24/25 08/30/25 Rx mg-hydrochlorothiazide 25 mg tablet ropinirole 0.5 mg tablet 0.5 mg PO QHS #90 tabs 07/17/25 08/30/25 Rx liothyronine 5 mcg tablet See Rx Instructions .Route 08/05/25 08/30/25 Rx .COMPLEX #90 tabs tirzepatide 5 mg/0.5 mL 5 mg (0.5 mL) subcut WEEKLY #2 mL 08/07/25 08/30/25 Rx subcutaneous pen injector trazodone 100 mg tablet 200 mg (2 x 100 mg) PO QHS PRN 08/07/25 08/30/25 Rx insomnia #180 tabs quetiapine 100 mg tablet 150 mg (1.5 x 100 mg) PO HS 90 08/12/25 08/30/25 Rx days #135 tabs ropinirole 1 mg tablet 1 mg PO QHS #90 tabs 08/16/25 08/30/25 Rx ferrous sulfate 325 mg (65 mg 325 mg PO DAILY #90 tabs 08/19/25 08/30/25 Rx iron) tablet rosuvastatin 10 mg tablet 10 mg PO DAILY #90 tabs 08/19/25 08/30/25 Rx tolterodine 2 mg capsule,extended 2 mg PO DAILY #90 caps 08/19/25 08/30/25 Rx release 24 hr Allergies Allergy/AdvReac Type Severity Reaction Status Date / Time cat dander Allergy Intermediate Congested Verified 08/30/25 20:28 Vital Signs Vital Signs - 24 hr 08/30/25 12:55 08/30/25 14:44 08/30/25 14:57 Temperature 37.1 C Pulse Rate 55 L 82 Respiratory Rate 16 18 Blood Pressure 99/44 L 132/55 L Pulse Oximetry 96 100 Oxygen Delivery Room Air 08/30/25 15:15 08/30/25 16:00 08/30/25 16:45 Temperature Pulse Rate 65 85 64 Respiratory Rate 18 20 18 Blood Pressure 96/82 L 135/61 135/60 Pulse Oximetry 97 100 100 Oxygen Delivery 08/30/25 17:30 08/30/25 18:00 08/30/25 19:41 Temperature Pulse Rate 89 87 88 Respiratory Rate 23 H 21 H 20 Blood Pressure 127/69 122/54 L 113/56 L Pulse Oximetry 98 97 96 Oxygen Delivery 08/30/25 20:08 08/30/25 21:27 08/31/25 05:39 Temperature 36.7 C 36.6 C Pulse Rate 86 86 81 Respiratory Rate 19 19 16 Blood Pressure 122/53 L 102/59 L Pulse Oximetry 100 100 95 Oxygen Delivery Room Air Exam Narrative: Alert oriented appears stated age Const: General: comfortable and no acute distress HENMT: Ears: TM's normal bilaterally Face/Nose/Sinus: Normal nares present Eyes: General: appearance normal, both eyes and all related structures Sclera: sclerae normal Neck: Neck: supple and no JVD Carotids: no bruits Chest: Other: no reproducible chest wall pain to palpation Resp: Effort & Inspection: normal respiratory effort Auscultation: clear to auscultation bilaterally Cardio: Rate: regular rate Rhythm: regular rhythm Heart sounds: Murmur heart sound present Other: 3/6 systolic ejection murmur at base GI: Inspection: non-distended GI Palp: Yes Soft to palpation Skin: General skin exam: normal color and no rashes or lesions noted Neuro: Speech: normal speech Sensory Exam: normal sensation Extrem: General: normal to inspection Psych: Mental Status: mental status grossly normal Affect: normal affect Results Labs and Meds 08/31/25 05:20 08/31/25 05:20 Lab results: Cardiac Enzymes 08/30/25 08/31/25 Range/Units 15:32 05:20 AST 86 H 54 H (14-36) U/L Coagulation 08/31/25 Range/Units 05:20 PT 14.8 H (11.1-14.7) Seconds APTT 32.0 (22.3-36.8) Seconds CBC 08/30/25 08/30/25 08/30/25 Range/Units 15:32 17:08 23:28 WBC 7.3 (4.5-10.0) K/mm3 RBC 4.94 (4.2-5.4) M/mm3 Hgb 12.6 11.2 L 10.2 L (12.0-15.0) g/dL Hct 38.3 34.4 L 31.4 L (37.0-47.0) % Plt Count 219 (150-375) k/mm3 Lymph # (Auto) 0.70 L (0.9-3.2) K/mm3 [place] # (Auto) 0.6 (0.1-0.6) K/mm3 Eos # (Auto) 0.0 (0-0.3) K/mm3 Baso # (Auto) 0.0 (0.0-0.1) K/mm3 08/31/25 Range/Units 05:20 WBC 6.0 (4.5-10.0) K/mm3 RBC 4.04 L (4.2-5.4) M/mm3 Hgb 10.4 L (12.0-15.0) g/dL Hct 31.5 L (37.0-47.0) % Plt Count 192 (150-375) k/mm3 Lymph # (Auto) (0.9-3.2) K/mm3 [place] # (Auto) (0.1-0.6) K/mm3 Eos # (Auto) (0-0.3) K/mm3 Baso # (Auto) (0.0-0.1) K/mm3 Comprehensive Metabolic Panel 08/30/25 08/30/25 08/31/25 Range/Units 15:32 23:28 05:20 Sodium 125 L 122 L 123 L (137-145) mmol/L Potassium 3.6 3.1 L 3.7 (3.4-5.0) mmol/L Chloride 85 L 89 L 91 L (98-107) mmol/L Carbon Dioxide 24 22 22 (22-30) mmol/L BUN 42 H 41 H 41 H (7-17) mg/dL Creatinine 3.20 H 2.54 H 2.64 H (0.7-1.0) mg/dL Glucose 114 H 108 94 (65-110) mg/dL Calcium 9.6 8.4 8.6 (8.4-10.2) mg/dL AST 86 H 54 H (14-36) U/L ALT 21 14 (6-35) U/L Alkaline Phosphatase 89 65 (38-126) U/L Total Protein 8.0 6.1 L (6.3-8.2) g/dL Albumin 4.6 3.4 L (3.5-5.1) g/dL Intake and Output 08/30/25 08/31/25 08/31/25 23:59 07:59 15:59 Intake Total 920 480 120 Output Total 470 Balance 450 480 120 Intake: IV 500 Sodium Chloride 0.9% IV 500 ml 500 @ 999 mls/hr IV CONT .Q31M STA Rx#:[id number] Oral 420 480 120 Output: Urine 470 Other: # Unmeasured Voids 1 1 ECG personally reviewed and independently interpreted. Initially thought to be atrial fibrillation but on 2nd review, it is actually sinus rhythm with a type 1 second-degree AV block. Echocardiogram performed on 08/28/2025 shows ejection fraction 75%. Asymmetric septal hypertrophy. Severe left atrial enlargement. Severe mitral annular calcification with [id number] mitral regurgitation and least mild mitral stenosis with mean gradient of 11. Moderate aortic stenosis with mean gradient 36 and a valve area of 1.2 centimeter squared with moderate AI. Moderate pulmonary hypertension RVSP 49 a small pericardial effusion.
[2025-08-31] MEDS: POTASSIUM CHLORIDE 20 MEQ ER TABLET PO (10:14)
[2025-08-31] MEDS: FERROUS SULFATE 325 MG TABLET PO (10:14)
--- NOTE | 2025-08-31 11:24 | PM.CNNEP ---
Assessment and Plan Assessment and plan (1) Hyponatremia: Code(s): E87.1 - Hypo-osmolality and hyponatremia Status: Acute Assessment and Plan: The patient has a low sodium. She looks dehydrated. This may just be hypovolemic hyponatremia. The patient is also on hydrochlorothiazide which can lower the sodium especially in the setting of dehydration and water drinking. The patient has also on thyroid medications so we can check a TSH. Will check a cortisol as well. 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 At this point will get a TSH, cortisol level, urine and serum osmolality, SPEP, and urine sodium. We can continue the IV fluids. I agree with holding the hydrochlorothiazide. Will check another sodium level now and see where we are (2) Acute renal failure superimposed on stage 4 chronic kidney disease: Qualifiers: Acute renal failure type: unspecified Qualified Code(s): N17.9 - Acute kidney failure, unspecified; N18.4 - Chronic kidney disease, stage 4 (severe) Code(s): N17.9 - Acute kidney failure, unspecified; N18.4 - Chronic kidney disease, stage 4 (severe) Status: Acute Assessment and Plan: The patient has chronic kidney disease. She sees Dr. Velasquez in the office from time to time. She is due for an appointment. This is most likely due to diabetes hypertension and vascular disease. Patient has acute kidney injury as well. This is most likely due to dehydration. Will see how this does with her fluid resuscitation. (3) Erythropoietin deficiency anemia: Code(s): D63.1 - Anemia in chronic kidney disease Status: Acute Assessment and Plan: Hemoglobin has dropped a little bit with hydration. Will check stool guaiacs because of her black stools. (4) Diabetes mellitus with chronic kidney disease: Code(s): E11.22 - Type 2 diabetes mellitus with diabetic chronic kidney disease Status: Acute Assessment and Plan: Management per hospitalists (5) Benign hypertension with chronic kidney disease: Code(s): I12.9 - Hypertensive chronic kidney disease with stage 1 through stage 4 chronic kidney disease, or unspecified chronic kidney disease Status: Acute Assessment and Plan: Blood pressure is doing well (6) Hyperlipidemia: Qualifiers: Hyperlipidemia type: unspecified Qualified Code(s): E78.5 - Hyperlipidemia, unspecified Code(s): E78.5 - Hyperlipidemia, unspecified Status: Chronic Assessment and Plan: The patient is on rosuvastatin (7) Hypothyroidism: Qualifiers: Hypothyroidism type: unspecified Qualified Code(s): E03.9 - Hypothyroidism, unspecified Code(s): E03.9 - Hypothyroidism, unspecified Status: Chronic Assessment and Plan: The patient is on supplments History of Present Illness Reason for Consult Consult date: 08/31/25 Chief Complaint Chief complaint: DIARRHEA, BLACK AND TARRY History of Present Illness Narrative: Katelin is a very pleasant 74-year-old lady who has multiple medical problems including chronic kidney disease under the care of Dr. Velasquez, hypertension, diabetes, pancreatic cysts, sleep apnea, diastolic dysfunction, aortic stenosis, congenital heart murmur which is stable, fatty liver, hyperlipidemia, restless legs, asthma, irritable bowel syndrome, and hypothyroidism. The patient came in the hospital because of nausea vomiting and black and tarry diarrhea. She said that she felt fine and then the next day had all of this. She had started iron pills about 2 or 3 weeks before this started but her stools had not been black before this. The patient has been taking Mounjaro for weight loss. The patient developed the nausea vomiting and diarrhea and it would not stop so she came to the ER. There she was evaluated and admitted. She has been getting some IV fluids. It was noted that her creatinine was elevated over her baseline. Before this her creatinine had been somewhat up and down but stable overall. However on admission it was higher so renal consultation was requested. She denies any bloody urine foamy urine kidney stones or bladder infections. She is not taking any nonsteroidal anti-inflammatory agents. She does have paroxicam on her list but says she has not been taking that. The patient also had low sodium. She says she has been drinking some fluid but not a whole lot. Review of Systems Constitutional: Constitutional: Reports no additional constitutional complaints Eyes: Eyes: Reports no additional eye complaints ENT: Reports system reviewed and no additional complaints, except as documented Cardiovascular: Cardiovascular: Reports no additional cardiovascular complaints Respiratory: Respiratory: Reports no additional respiratory complaints Gastrointestinal: Gastrointestinal: Reports no additional gastrointestinal complaints Genitourinary: Genitourinary: Reports no additional female genitourinary complaints Musculoskeletal: Musculoskeletal: Reports no additional musculoskeletal complaints Integumentary/Breasts: Skin/Breast: Reports system reviewed and no additional complaints, except as docu Neurologic: Reports system reviewed and no additional complaints, except as documented Psychiatric: Psychiatric: Reports no additional psychiatric complaints Endocrine: Endocrine: Reports no additional endocrine complaints [facility] Past Medical History Medical History Mobitz type 1 second degree AV block Pulmonary hypertension Mitral valve disease Aortic valve disease Osteoporosis DEXA scan May 2023 History of CVA (cerebrovascular accident) 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 noted on MRI April 2022 Bilateral carotid artery stenosis CKD (chronic kidney disease) stage 4, GFR 15-29 ml/min With baseline creatinine between 1.4-1.7 Eczema Dry eye Optic nerve drusen BPPV (benign paroxysmal positional vertigo) Restless leg syndrome Cognitive dysfunction Overactive bladder Lumbar stenosis 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 Spondylolisthesis at L4-L5 level Asthma TMJ (temporomandibular joint disorder) Hearing loss, bilateral Pancreatic cyst Irritable bowel syndrome with both constipation and diarrhea Depression Obstructive sleep apnea Diastolic congestive heart failure Aortic stenosis Steatohepatitis Hyperlipidemia Hypothyroidism Surgical History Surgical History History of nasal septoplasty History of hand surgery (~2003) Removal of mass from right finger Status post cataract extraction of both eyes with insertion of intraocular lens (2016) History of total abdominal hysterectomy and bilateral salpingo-oophorectomy (1988) Status post laser ablation of incompetent vein Right leg 2004 left leg 2017 History of back surgery Status post insertion of spinal cord stimulator (11/07/24) H/O colonoscopy History of cholecystectomy Hx of tonsillectomy (1955) Family History Family History Father Diabetes mellitus Family history of lung cancer Lung cancer Hypertension Cerebrovascular accident Asthma Mother Diabetes mellitus Family history of irritable bowel syndrome Asthma Parkinson disease Other Family history of arthritis Family history of cardiovascular disease Family history of congestive heart failure Family history of hearing loss Social History Social History Social History: She lives in her own home with her of 51 years. They are raising their 13-year-old grandson. They have a son who has intellectual disability. They have a daughter who has a history of drug abuse but is currently in remission and recently had a another son who is a month old. She is a lifelong nonsmoker and does not drink or use illicit substances. She still drives. Code status: Full code (she does not Wanna be on long-term ventilator/tracheostomy or have a feeding tube) Surrogate decision maker: Smoking status: Never smoker Second hand tobacco smoke exposure: Yes Alcohol intake: never Substance use: never Substance use type: does not use Other substance usage details: reports using prescription medication as MD orders only Last use: last ETOH use when pt was in early 's Do You Feel Safe in your Home?: Yes Lack of Transportation: No Lack of Food: Never True Current Housing: I Have Housing Concerned About Future Housing: No Difficulty Paying Gas/Electric Bills: No Difficulty Paying for Meds: No Currently Unemployed: No Education: High School Diploma/GED Difficulty w/ Childcare or Family Care: YES Living arrangements: with family Additional living arrangements comments: Gender identity (if verbalized by the patient): Female Spiritual care concerns: No Meds Home Medications and Allergies Home Medications ?Medication ?Instructions ?Recorded ?Confirmed ?Type aspirin 81 mg tablet 81 mg PO DAILY 09/01/20 08/30/25 History timolol 0.5 % eye drops 1 drp EACH EYE BID 10/08/23 08/30/25 History piroxicam 20 mg capsule 20 mg PO .4xweek PRN Pain 02/12/25 08/30/25 History levothyroxine 100 mcg tablet 100 mcg PO DAILY #90 tabs 04/02/25 08/30/25 Rx (Unithroid) lidocaine HCl 4 % topical cream 1 applic topical BID PRN restless 06/18/25 08/30/25 History (Aspercreme (lidocaine HCl)) leg(s) losartan 100 0.5 tablet PO DAILY #30 tabs 06/24/25 08/30/25 Rx mg-hydrochlorothiazide 25 mg tablet ropinirole 0.5 mg tablet 0.5 mg PO QHS #90 tabs 07/17/25 08/30/25 Rx liothyronine 5 mcg tablet See Rx Instructions .Route 08/05/25 08/30/25 Rx .COMPLEX #90 tabs tirzepatide 5 mg/0.5 mL 5 mg (0.5 mL) subcut WEEKLY #2 mL 08/07/25 08/30/25 Rx subcutaneous pen injector trazodone 100 mg tablet 200 mg (2 x 100 mg) PO QHS PRN 08/07/25 08/30/25 Rx insomnia #180 tabs quetiapine 100 mg tablet 150 mg (1.5 x 100 mg) PO HS 90 08/12/25 08/30/25 Rx days #135 tabs ropinirole 1 mg tablet 1 mg PO QHS #90 tabs 08/16/25 08/30/25 Rx ferrous sulfate 325 mg (65 mg 325 mg PO DAILY #90 tabs 08/19/25 08/30/25 Rx iron) tablet rosuvastatin 10 mg tablet 10 mg PO DAILY #90 tabs 08/19/25 08/30/25 Rx tolterodine 2 mg capsule,extended 2 mg PO DAILY #90 caps 08/19/25 08/30/25 Rx release 24 hr Allergies Allergy/AdvReac Type Severity Reaction Status Date / Time cat dander Allergy Intermediate Congested Verified 08/30/25 20:28 Vital Signs Vital Signs - 24 hr 08/30/25 12:55 08/30/25 14:44 08/30/25 14:57 Temperature 98.8 F Pulse Rate 55 L 82 Respiratory Rate 16 18 Blood Pressure 99/44 L 132/55 L Pulse Oximetry 96 100 Oxygen Delivery Room Air 08/30/25 15:15 08/30/25 16:00 08/30/25 16:45 Temperature Pulse Rate 65 85 64 Respiratory Rate 18 20 18 Blood Pressure 96/82 L 135/61 135/60 Pulse Oximetry 97 100 100 Oxygen Delivery 08/30/25 17:30 08/30/25 18:00 08/30/25 19:41 Temperature Pulse Rate 89 87 88 Respiratory Rate 23 H 21 H 20 Blood Pressure 127/69 122/54 L 113/56 L Pulse Oximetry 98 97 96 Oxygen Delivery 08/30/25 20:08 08/30/25 21:27 08/31/25 05:39 Temperature 98.0 F 97.8 F Pulse Rate 86 86 81 Respiratory Rate 19 19 16 Blood Pressure 122/53 L 102/59 L Pulse Oximetry 100 100 95 Oxygen Delivery Room Air 08/31/25 08:00 Temperature Pulse Rate Respiratory Rate Blood Pressure Pulse Oximetry Oxygen Delivery Room Air Exam Narrative: Exam Narrative: Well developed well-nourished female in no acute distress Skin is warm and dry without rash Head normocephalic atraumatic Eyes normal sclerae and conjunctivae Mouth normal lips teeth and gums Neck no nodes no thyromegaly no carotid bruits Axillae no nodes Back no CVA tenderness Lungs symmetric and clear to auscultation and percussion Heart regular rate and rhythm without rub or gallop Abdomen bowel sounds positive soft nontender, no HSM, masses, or bruits.. Ostomy plus Sofia's pouch present Extremities no cyanosis, clubbing, or edema Pulses 2+ equal in radial arteries Psychological not anxious or depressed Neuro alert and oriented x3 motor 5/5 cranial nerves 2-12 intact reflexes 2+ and equal in the biceps and patellar tendons cerebellar normal rapid alternating movements Results Lab Results 08/31/25 05:20 08/31/25 05:20 Lab results: Most recent lab results Calcium 8.6 mg/dL (8.4-10.2) 08/31/25 05:20 Phosphorus 4.4 mg/dL (2.5-4.5) 08/31/25 05:20 Magnesium 1.8 mg/dL (1.6-2.3) 08/31/25 05:20
[2025-08-31 13:00] LABS: Sodium 125 mmol/L (137-145)
[2025-08-31 13:51] LABS: Thyroid Stimulating Hormone Reflex 8.260 uIU/mL (0.465-4.68)
[2025-08-31 14:00] VITALS: BP 107/47; PULSE 82; RESP 16; TEMP 36.2; O2SAT 98
[2025-08-31 14:09] LABS: Total Protein Urine Random 10 mg/dL; Ur Ttl Prot Creatinine Ratio 0.14 mg/mg (0-0.20)
[2025-08-31 14:24] LABS: Urea Random Urine 394 MG/DL
[2025-08-31 16:00] VITALS: PULSE 82
[2025-08-31 19:31] LABS: Sodium 124 mmol/L (137-145)
[2025-08-31 20:00] VITALS: PULSE 80; PULSE 81; RESP 17; O2SAT 98
[2025-08-31 20:08] LABS: Free T4 Free Thyroxine Reflex 1.39 ng/dL (0.78-2.19)
[2025-08-31] MEDS: LIOTHYRONINE SODIUM 5 MCG TABLET PO (21:27)
[2025-08-31 22:00] VITALS: BP 116/52; PULSE 81; RESP 17; TEMP 36.6; O2SAT 98
[2025-09-01] VITALS (10 sets, daily range): BP systolic 116–142; BP diastolic 53–56; PULSE 75–88; RESP 14–18; TEMP 36.4–37.1; O2SAT 96–100
[2025-09-01] MEDS: LEVOTHYROXINE SODIUM 100 MCG TABLET PO (05:42)
[2025-09-01 07:12] LABS: Albumin Level 3.5 g/dL (3.5-5.1); Anion Gap 10 mmol/L (4-12); Blood Urea Nitrogen 35 mg/dL (7-17); Calcium 8.8 mg/dL (8.4-10.2); Carbon Dioxide 21 mmol/L (22-30); Chloride 94 mmol/L (98-107); Estimated CRCL calculation 24 ml/min; Estimated Glomerular Filt Rate 25; Glucose 85 mg/dL (65-110); Potassium 3.9 mmol/L (3.4-5.0); Sodium 125 mmol/L (137-145)
--- NOTE | 2025-09-01 07:21 | P.PNIM_ITS ---
Progress Note: A&P Assessment and Plan (1) Black tarry stools: Code(s): K92.1 - Melena Status: Acute Assessment and Plan: * Has not had any episodes of stools since Tuesday as she has taken Imodium * Monitor serum electrolytes, CBC, hemoglobin/hematocrit q.8 hours. If hemoglobin drops below 7 transfuse packed red blood cells * Monitor for bloody bowel movements,chest pain,SOB or dizziness/lightheadedness * May consider GI consult in the morning * DVT Px: SCDs * Avoid anti-coagulations * Stool occult blood * No episodes last evening/this AM (2) Generalized weakness: Code(s): R53.1 - Weakness Status: Acute Assessment and Plan: Endorses generalized weakness for the past several weeks. Has reportedly been on Mounjaro for about 6 weeks, has been dealing with nausea, multiple episodes of emesis, intermittent constipation and diarrhea * Has taken several doses of MiraLax and other stool softeners at home and is now having diarrhea * Took a dose of Imodium on Tuesday for diarrhea after having a darker stool * Denies any CP, abdominal pain, but does endorse exertional dyspnea * Likely multifactorial in nature: DIXIE, electrolyte imbalance, cardiac (structural) * PT/OT evals - recommend either HH or inpt rehab depends on progress during hospitalization (3) Heart valve disease: Code(s): I38 - Endocarditis, valve unspecified Status: Acute Assessment and Plan: * moderate mixed aortic valvular disease with moderate and moderate AI * Severe mitral annular calcification with [id number] MR and at least mild mitral stenosis * Plan for ANANTH (4) Acute diarrhea: Code(s): R19.7 - Diarrhea, unspecified Status: Acute Assessment and Plan: * See above (5) Acute renal failure superimposed on stage 4 chronic kidney disease: Qualifiers: Acute renal failure type: unspecified Qualified Code(s): N17.9 - Acute kidney failure, unspecified; N18.4 - Chronic kidney disease, stage 4 (severe) Code(s): N17.9 - Acute kidney failure, unspecified; N18.4 - Chronic kidney disease, stage 4 (severe) Status: Acute Assessment and Plan: * Creatinine: 2.54, GFR: 18, BUN: 41 (baseline creatinine appears to be 1.5- 1.7) * IV Fluids: 2L NS * Trend renal function * Trend electrolytes, correct as needed (6) Hyponatremia: Code(s): E87.1 - Hypo-osmolality and hyponatremia Status: Acute Assessment and Plan: * Upon admission: Na one hundred twenty-five * 08/31: Na 123 * Likely hypovolemic hyponatremia * TSH 10.4, Free T4 1.3, Total T3 0.78 * Cortisol pending, urine/serium osmolality pending * SPEP and urine sodium pending * Hold HCTZ, losartan * avoid nephrotoxic medications * Nephrology consult - appreciate further recommendations * 09/01: Na 123 -> 125 (7) Mediastinal lymphadenopathy: Code(s): R59.0 - Localized enlarged lymph nodes Status: Acute Assessment and Plan: * Indeterminate clinical significance * Likely reactive in nature (8) Elevated lipase: Code(s): R74.8 - Abnormal levels of other serum enzymes Status: Acute Assessment and Plan: * Lipase on 08/30: 503 * Denies any abdominal pain * Abd CT: Small cystic masses in the pancreas which may represent focally dilated pancreatic duct. The differential diagnosis includes pseudocyst, intraductal papillary mucinous neoplasm (IPMN), mucinous cystic neoplasm (MCN), and the less common serous cystadenoma and neuroendocrine tumor. * Imagining not suggestive of pancreatitis (9) Acute hypokalemia: Code(s): E87.6 - Hypokalemia Status: Acute Assessment and Plan: * Upon admission, K 3.6 * After bolus of IVFs, K 3.1 * Given 40 meq oral supplementation * 09/01: K 3.9 * Continue to monitor daily labs (10) Cognitive dysfunction: Code(s): F09 - Unspecified mental disorder due to known physiological condition Status: Acute Assessment and Plan: * minimize any sedating medications * continue patient's home Requip at trazodone and Seroquel given her known history of bipolar depression (11) Hypothyroidism: Qualifiers: Hypothyroidism type: unspecified Qualified Code(s): E03.9 - Hypothyroidism, unspecified Code(s): E03.9 - Hypothyroidism, unspecified Status: Chronic Assessment and Plan: * continue levothyroxine * TSH 10.4, Free T4 1.3, Total T3 0.78 Subjective Date/time seen: 09/01/25 07:21 Interval history: 74-year-old female with a past medical history chronic kidney disease stage 4, hepatic steatosis, aortic stenosis, COPD, diastolic heart failure, hypothyroidism and obstructive sleep apnea and obesity who presented to the ER from home due to diarrhea and increased weakness. 09/01/2025 Patient sitting comfortably in bed at time of examination. States that she feels much better today than yesterday, denies any CP, SOB, n/v or abd pain. Nephro placed pt on sodium restriction as Na only slightly increased this AM. Will also add Na tablets, will consider adding Lasix. Planning for ANANTH before discharge to asses valve disease. Review of Systems Review of Systems: 12 systems were reviewed with pertinent positives and negatives per HPI. Except as documented in the HPI, all other systems were reviewed and are negative. She reports that her back pain although briefly relieved after she received a nerve stimulator in October has been worse over the last 6 months or so. She denies any loss of bowel or bladder control. She has chronic urinary frequency. She denies dysuria. Exam Narrative: Weight 86.3 kg BMI 34.8 Const: Other: Obese, no acute distress, appears older than stated age HENMT: Other: Mucous membranes are overtly dry, head is normocephalic atraumatic Eyes: Other: Pupils are equal and reactive, positive conjunctival pallor, no scleral icterus Neck: Other: No JVD, no lymphadenopathy Resp: Other: Clear to auscultation bilaterally, no increased work of breathing Cardio: Other: Irregularly irregular, rate controlled, 2+ bilateral radial pedal pulses, 2/6 systolic murmur GI: Other: Soft, nontender, nondistended, normoactive bowel sounds Skin: Other: Mild pallor, non jaundice Neuro: Other: Alert oriented x4, speech is clear, no facial asymmetry some mild difficulty with word finding, no localizing neurologic deficits noted during the course of conversation Extrem: Other: 1+ edema left lower extremity no edema r ight lower extremity Psych: Other: Appropriate mood and affect, pleasant and cooperative Objective Data Vital Signs Vital Signs: Vital Signs - 24 hr 08/31/25 08:00 08/31/25 14:00 08/31/25 16:00 Temperature 97.1 F L Pulse Rate 82 82 Respiratory Rate 16 Blood Pressure 107/47 L Pulse Oximetry 98 Oxygen Delivery Room Air 08/31/25 20:00 08/31/25 20:00 08/31/25 22:00 Temperature 97.8 F Pulse Rate 81 80 81 Respiratory Rate 17 17 Blood Pressure 116/52 L Pulse Oximetry 98 98 Oxygen Delivery Room Air 09/01/25 00:00 09/01/25 04:00 09/01/25 05:44 Temperature 98.8 F Pulse Rate 81 81 84 Respiratory Rate 16 Blood Pressure 124/53 L Pulse Oximetry 98 Oxygen Delivery Intake/Output Intake/Output: Intake & Output 08/29/25 08/30/25 08/31/25 09/01/25 23:59 23:59 23:59 23:59 Intake Total 920 1600 400 Output Total 470 300 Balance 450 1600 100 Meds/Results Medications: Active Medications Generic Name Dose Route Start Last Admin Trade Name Saadq PRN Reason Stop Dose Admin Acetaminophen 650 mg 08/30/25 18:57 Acetaminophen 325 Mg Tablet PO Q4H PRN Mild Pain (1-3) or Fever Aspirin 81 mg 08/31/25 09:00 08/31/25 08:57 Aspirin 81 Mg Enteric Tablet PO 81 mg DAILY MARIANELA Administration Ferrous Sulfate 325 mg 08/31/25 11:00 08/31/25 10:14 Ferrous Sulfate 325 Mg Tablet PO 325 mg DAILY@1100 MARIANELA Administration Levothyroxine Sodium 100 mcg 08/31/25 06:30 09/01/25 05:42 Levothyroxine Sodium 100 Mcg Tablet PO 100 mcg DAILY@0630 MARIANELA Administration Liothyronine Sodium 5 mcg 08/31/25 21:00 08/31/25 21:27 Liothyronine Sodium 5 Mcg Tablet PO 5 mcg HS MARIANELA Administration Ondansetron HCl 4 mg 08/30/25 18:57 Ondansetron Inj 4 Mg/2 Ml Vial IV PUSH Q4H PRN Nausea Quetiapine Fumarate 150 mg 08/31/25 01:20 08/31/25 21:27 Quetiapine Fumarate 25 Mg Tablet PO 150 mg HS MARIANELA Administration Ropinirole HCl 0.5 mg 08/31/25 01:20 08/31/25 21:27 Ropinirole Hcl 0.5 Mg Tablet PO 0.5 mg QHS MARIANELA Administration Ropinirole HCl 1 mg 08/31/25 01:20 08/31/25 21:27 Ropinirole Hcl 1 Mg Tablet PO 1 mg QHS MARIANELA Administration Timolol Maleate 1 drop 08/31/25 09:00 08/31/25 17:19 Timolol Maleate 0.5% Op Soln 5 Ml Bottle EACH EYE 1 drop BID MARIANELA Administration Trazodone HCl 200 mg 08/31/25 01:15 08/31/25 21:30 Trazodone Hcl 50 Mg Tablet PO 200 mg QHS PRN Administration Insomnia Trolamine Salicylate 1 applic 08/31/25 04:02 Trolamine Salicylate 10% (*Bkc) 113 Gm Cream TOPICAL BID PRN restless leg(s) Radiology Results: ITS Impressions Chest X-Ray 08/30/25 16:43 IMPRESSION: 1. Portable chest x-ray with no focal acute process. Chest/Abdomen/Pelvis CT 08/30/25 17:58 IMPRESSION: 1. Small pericardial effusion. 2: Mediastinal lymphadenopathy, likely reactive. 3: No findings to account for patient's blood in stool. 4: Small cystic masses in the pancreas which may represent focally dilated pancreatic duct. The differential diagnosis includes pseudocyst, intraductal papillary mucinous neoplasm (IPMN), mucinous cystic neoplasm (MCN), and the less common serous cystadenoma and neuroendocrine tumor. 5: Periumbilical hernia containing fat and fluid. No evidence for bowel obstruction. Labs Labs: Laboratory Results - last 24 hr 08/31/25 08/31/25 08/31/25 05:20 12:11 13:52 Sodium 125 L Potassium Chloride Carbon Dioxide Anion Gap BUN Creatinine Estim Creat Clear Calc Estimated GFR Glucose Serum Osmolality Cancelled Calcium Phosphorus Albumin Vitamin B12 > 1000.0 H Folate 7.8 TSH (Reflex) 8.260 H Free T4 1.30 1.39 Total T3 0.78 L Random Cortisol 14.70 U Random Total Protein 10 Ur Random Sodium 20 Ur Random Urea 394 Urine Creatinine 73.0 Protein/Creat Ratio 2 0.14 08/31/25 09/01/25 18:54 05:42 Sodium 124 L 125 L Potassium 3.9 Chloride 94 L Carbon Dioxide 21 L Anion Gap 10 BUN 35 H Creatinine 1.94 H Estim Creat Clear Calc 24 Estimated GFR 25 L Glucose 85 Serum Osmolality Calcium 8.8 Phosphorus 3.3 Albumin 3.5 Vitamin B12 Folate TSH (Reflex) Free T4 Total T3 Random Cortisol U Random Total Protein Ur Random Sodium Ur Random Urea Urine Creatinine Protein/Creat Ratio 2 Quality VTE Prophylaxis VTE prophylaxis: mechanical ordered (SCDs)
[2025-09-01] MEDS: ASPIRIN 81 MG ENTERIC TABLET PO (09:35)
[2025-09-01] MEDS: TIMOLOL MALEATE 0.5% OP SOLN 5 ML BOTTLE 1 DROP EACH EYE ×2 (09:36→17:46)
--- NOTE | 2025-09-01 09:55 | PM.PNCARD ---
Progress Note: A&P Assessment and Plan (1) Aortic valve disease: Code(s): I35.9 - Nonrheumatic aortic valve disorder, unspecified Status: Acute Assessment and Plan: she does have moderate mixed aortic valvular disease with moderate and moderate AI. Valve area calculated 1.2 cm2 with moderate aortic regurgitation. This is worse than cardiac catheterization results from last year. By examination also her valve appears to be at least moderately stenotic. (2) Mitral valve disease: Code(s): I05.9 - Rheumatic mitral valve disease, unspecified Status: Acute Assessment and Plan: Severe mitral annular calcification with [id number] MR and at least mild mitral stenosis with mean gradient of 11. (3) Pulmonary hypertension: Code(s): I27.20 - Pulmonary hypertension, unspecified Status: Acute Assessment and Plan: Moderate. Probably related to left heart disease including diastolic dysfunction and valvular heart disease. (4) Diastolic congestive heart failure: Qualifiers: Heart failure chronicity: chronic Qualified Code(s): I50.32 - Chronic diastolic (congestive) heart failure Code(s): I50.30 - Unspecified diastolic (congestive) heart failure Status: Chronic Assessment and Plan: Not decompensated. (5) Pericardial effusion: Code(s): I31.39 - Other pericardial effusion (noninflammatory) Status: Acute Assessment and Plan: Small (6) Dyspnea on exertion: Code(s): R06.09 - Other forms of dyspnea Status: Acute Assessment and Plan: dyspnea is likely multifactorial. She does have moderate pulmonary hypertension as well as valvular heart disease And diastolic heart failure.. (7) Mobitz type 1 second degree AV block: Code(s): I44.1 - Atrioventricular block, second degree Status: Acute Assessment and Plan: Continue telemetry potassium is 3.9 and creatinine has improved Plan Plan for ANANTH before discharge Subjective Date/time seen: 09/01/25 09:55 Interval history: 74-year-old female with a past medical history chronic kidney disease stage 4, hepatic steatosis, aortic stenosis, COPD, diastolic heart failure, hypothyroidism and obstructive sleep apnea and obesity who presented to the ER from home due to diarrhea and increased weakness. Date of service 09/01/2025: Feels little better. Still has some weakness. No chest pain Review of Systems Review of Systems: All systems reviewed & are unremarkable except as noted in HPI and below Constitutional: Constitutional: Denies excessive sweating, Reports fatigue and Reports lethargy Eyes: Eyes: Denies blurry vision ENT: Reports Normal hearing present Cardiovascular: Cardiovascular: Denies chest pain and Reports dyspnea on exertion Respiratory: Respiratory: Reports dyspnea on exertion Gastrointestinal: Gastrointestinal: Denies abdominal pain, Reports melena, Reports diarrhea, Reports nausea and Reports vomiting Genitourinary: Genitourinary: Denies hematuria Musculoskeletal: Musculoskeletal: Denies back pain Integumentary/Breasts: Skin/Breast: Denies pruritus Neurologic: Reports Normal hearing present and Denies Abnormal speech present Psychiatric: Psychiatric: Denies anxiety Endocrine: Endocrine: Denies excessive sweating and Reports fatigue Hematologic/Lymphatic: Hematologic/Lymphatic: Denies easy bleeding Allergic/Immunologic: Allergic/Immunologic: Denies GI upset with certain foods Exam Narrative: Alert oriented appears stated age Const: General: comfortable and no acute distress HENMT: Ears: TM's normal bilaterally Face/Nose/Sinus: Normal nares present Eyes: General: appearance normal, both eyes and all related structures Sclera: sclerae normal Neck: Neck: supple and no JVD Carotids: no bruits Chest: Other: no reproducible chest wall pain to palpation Resp: Effort & Inspection: normal respiratory effort Auscultation: clear to auscultation bilaterally Cardio: Rate: regular rate Rhythm: regular rhythm Heart sounds: Murmur heart sound present Other: 3/6 systolic ejection murmur at base GI: Inspection: non-distended Skin: General skin exam: normal color and no rashes or lesions noted Neuro: Cranial nerves: Yes Normal hearing present Speech: normal speech and No Abnormal speech present Sensory Exam: normal sensation Extrem: General: normal to inspection Psych: Mental Status: mental status grossly normal Affect: normal affect Objective Data Vital Signs Vital Signs: Vital Signs - 24 hr 08/31/25 14:00 08/31/25 16:00 08/31/25 20:00 Temperature 36.2 C L Pulse Rate 82 82 81 Respiratory Rate 16 17 Blood Pressure 107/47 L Pulse Oximetry 98 98 Oxygen Delivery Room Air 08/31/25 20:00 08/31/25 22:00 09/01/25 00:00 Temperature 36.6 C Pulse Rate 80 81 81 Respiratory Rate 17 Blood Pressure 116/52 L Pulse Oximetry 98 Oxygen Delivery 09/01/25 04:00 09/01/25 05:44 Temperature 37.1 C Pulse Rate 81 84 Respiratory Rate 16 Blood Pressure 124/53 L Pulse Oximetry 98 Oxygen Delivery Intake/Output Intake/Output: Intake & Output 08/29/25 08/30/25 08/31/25 09/01/25 23:59 23:59 23:59 23:59 Intake Total 920 1600 500 Output Total 470 300 Balance 450 1600 200 Meds/Results Medications: Active Medications Generic Name Dose Route Start Last Admin Trade Name Steven PRN Reason Stop Dose Admin Acetaminophen 650 mg 08/30/25 18:57 Acetaminophen 325 Mg Tablet PO Q4H PRN Mild Pain (1-3) or Fever Aspirin 81 mg 08/31/25 09:00 09/01/25 09:35 Aspirin 81 Mg Enteric Tablet PO 81 mg DAILY MARIANELA Administration Ferrous Sulfate 325 mg 08/31/25 11:00 08/31/25 10:14 Ferrous Sulfate 325 Mg Tablet PO 325 mg DAILY@1100 MARIANELA Administration Levothyroxine Sodium 100 mcg 08/31/25 06:30 09/01/25 05:42 Levothyroxine Sodium 100 Mcg Tablet PO 100 mcg DAILY@0630 MARIANELA Administration Liothyronine Sodium 5 mcg 08/31/25 21:00 08/31/25 21:27 Liothyronine Sodium 5 Mcg Tablet PO 5 mcg HS MARIANELA Administration Ondansetron HCl 4 mg 08/30/25 18:57 Ondansetron Inj 4 Mg/2 Ml Vial IV PUSH Q4H PRN Nausea Quetiapine Fumarate 150 mg 08/31/25 01:20 08/31/25 21:27 Quetiapine Fumarate 25 Mg Tablet PO 150 mg HS MARIANELA Administration Ropinirole HCl 0.5 mg 08/31/25 01:20 08/31/25 21:27 Ropinirole Hcl 0.5 Mg Tablet PO 0.5 mg QHS MARIANELA Administration Ropinirole HCl 1 mg 08/31/25 01:20 08/31/25 21:27 Ropinirole Hcl 1 Mg Tablet PO 1 mg QHS MARIANELA Administration Timolol Maleate 1 drop 08/31/25 09:00 09/01/25 09:36 Timolol Maleate 0.5% Op Soln 5 Ml Bottle EACH EYE 1 drop BID MARIANELA Administration Trazodone HCl 200 mg 08/31/25 01:15 08/31/25 21:30 Trazodone Hcl 50 Mg Tablet PO 200 mg QHS PRN Administration Insomnia Trolamine Salicylate 1 applic 08/31/25 04:02 Trolamine Salicylate 10% (*Bkc) 113 Gm Cream TOPICAL BID PRN restless leg(s) Radiology Results: ITS Impressions Chest X-Ray 08/30/25 16:43 IMPRESSION: 1. Portable chest x-ray with no focal acute process. Chest/Abdomen/Pelvis CT 08/30/25 17:58 IMPRESSION: 1. Small pericardial effusion. 2: Mediastinal lymphadenopathy, likely reactive. 3: No findings to account for patient's blood in stool. 4: Small cystic masses in the pancreas which may represent focally dilated pancreatic duct. The differential diagnosis includes pseudocyst, intraductal papillary mucinous neoplasm (IPMN), mucinous cystic neoplasm (MCN), and the less common serous cystadenoma and neuroendocrine tumor. 5: Periumbilical hernia containing fat and fluid. No evidence for bowel obstruction. Labs Labs: Laboratory Results - last 24 hr 08/31/25 08/31/25 08/31/25 12:11 13:52 18:54 Sodium 125 L 124 L Potassium Chloride Carbon Dioxide Anion Gap BUN Creatinine Estim Creat Clear Calc Estimated GFR Glucose Serum Osmolality Cancelled Calcium Phosphorus Albumin TSH (Reflex) 8.260 H Free T4 1.39 Random Cortisol 14.70 U Random Total Protein 10 Ur Random Sodium 20 Ur Random Urea 394 Urine Creatinine 73.0 Protein/Creat Ratio 2 0.14 09/01/25 05:42 Sodium 125 L Potassium 3.9 Chloride 94 L Carbon Dioxide 21 L Anion Gap 10 BUN 35 H Creatinine 1.94 H Estim Creat Clear Calc 24 Estimated GFR 25 L Glucose 85 Serum Osmolality Calcium 8.8 Phosphorus 3.3 Albumin 3.5 TSH (Reflex) Free T4 Random Cortisol U Random Total Protein Ur Random Sodium Ur Random Urea Urine Creatinine Protein/Creat Ratio 2
--- NOTE | 2025-09-01 10:07 | PM.PNNEP ---
Progress Note: A&P Assessment and Plan (1) Hyponatremia: Code(s): E87.1 - Hypo-osmolality and hyponatremia Status: Acute Assessment and Plan: The patient has a low sodium. Urine electrolytes and fractional excretion of urea show pre renal azotemia. Cortisol level is pretty good and TSH is slightly high, probably not high enough to bother the sodium. Osmolality and SPEP are pending most likely hyponatremia due to hypovolemia, and hydrochlorothiazide. Patient is off the IV fluids. She is eating and drinking. Sodium level came up only slightly. She is now on a fluid restriction. Will add sodium tablets and follow the sodium level going forward. Consider Lasix on top of sodium tablets if the sodium does not come up soon. (2) Acute renal failure superimposed on stage 4 chronic kidney disease: Qualifiers: Acute renal failure type: unspecified Qualified Code(s): N17.9 - Acute kidney failure, unspecified; N18.4 - Chronic kidney disease, stage 4 (severe) Code(s): N17.9 - Acute kidney failure, unspecified; N18.4 - Chronic kidney disease, stage 4 (severe) Status: Acute Assessment and Plan: The patient has chronic kidney disease. She sees Dr. Velasquez in the office from time to time. She is due for an appointment. This is most likely due to diabetes hypertension and vascular disease. Patient has acute kidney injury as well. This is most likely due to dehydration. Creatinine is coming down and is almost to its baseline (3) Erythropoietin deficiency anemia: Code(s): D63.1 - Anemia in chronic kidney disease Status: Acute Assessment and Plan: Hemoglobin has dropped a little bit with hydration. stool guaiacs ordered because of her black stools. (4) Diabetes mellitus with chronic kidney disease: Code(s): E11.22 - Type 2 diabetes mellitus with diabetic chronic kidney disease Status: Acute Assessment and Plan: Management per hospitalists (5) Benign hypertension with chronic kidney disease: Code(s): I12.9 - Hypertensive chronic kidney disease with stage 1 through stage 4 chronic kidney disease, or unspecified chronic kidney disease Status: Acute Assessment and Plan: Blood pressure is doing well (6) Hyperlipidemia: Qualifiers: Hyperlipidemia type: unspecified Qualified Code(s): E78.5 - Hyperlipidemia, unspecified Code(s): E78.5 - Hyperlipidemia, unspecified Status: Chronic Assessment and Plan: The patient is on rosuvastatin (7) Hypothyroidism: Qualifiers: Hypothyroidism type: unspecified Qualified Code(s): E03.9 - Hypothyroidism, unspecified Code(s): E03.9 - Hypothyroidism, unspecified Status: Chronic Assessment and Plan: The patient is on supplments Subjective Date/time seen: 09/01/25 10:07 Interval history: Katelin is feeling a little better. She is up in a chair. Eating some. Review of Systems Cardiovascular: Cardiovascular: Reports no additional cardiovascular complaints Respiratory: Respiratory: Reports no additional respiratory complaints Gastrointestinal: Gastrointestinal: Reports no additional gastrointestinal complaints Genitourinary: Genitourinary: Reports no additional female genitourinary complaints Exam Narrative: WDWN in NAD skin no rash head ncat lungs clear cor reg no rub abd BS+ nontender and soft ext no edema. Objective Data Vital Signs Vital Signs: Vital Signs - 24 hr 08/31/25 14:00 08/31/25 16:00 08/31/25 20:00 Temperature 97.1 F L Pulse Rate 82 82 81 Respiratory Rate 16 17 Blood Pressure 107/47 L Pulse Oximetry 98 98 Oxygen Delivery Room Air 08/31/25 20:00 08/31/25 22:00 09/01/25 00:00 Temperature 97.8 F Pulse Rate 80 81 81 Respiratory Rate 17 Blood Pressure 116/52 L Pulse Oximetry 98 Oxygen Delivery 09/01/25 04:00 09/01/25 05:44 Temperature 98.8 F Pulse Rate 81 84 Respiratory Rate 16 Blood Pressure 124/53 L Pulse Oximetry 98 Oxygen Delivery Intake/Output Intake/Output: Intake & Output 08/29/25 08/30/25 08/31/25 09/01/25 23:59 23:59 23:59 23:59 Intake Total 920 1600 500 Output Total 470 300 Balance 450 1600 200 Meds/Results Medications: Active Medications Generic Name Dose Route Start Last Admin Trade Name Freq PRN Reason Stop Dose Admin Acetaminophen 650 mg 08/30/25 18:57 Acetaminophen 325 Mg Tablet PO Q4H PRN Mild Pain (1-3) or Fever Aspirin 81 mg 08/31/25 09:00 09/01/25 09:35 Aspirin 81 Mg Enteric Tablet PO 81 mg DAILY MARIANELA Administration Ferrous Sulfate 325 mg 08/31/25 11:00 08/31/25 10:14 Ferrous Sulfate 325 Mg Tablet PO 325 mg DAILY@1100 MARIANELA Administration Levothyroxine Sodium 100 mcg 08/31/25 06:30 09/01/25 05:42 Levothyroxine Sodium 100 Mcg Tablet PO 100 mcg DAILY@0630 MARIANELA Administration Liothyronine Sodium 5 mcg 08/31/25 21:00 08/31/25 21:27 Liothyronine Sodium 5 Mcg Tablet PO 5 mcg HS MARIANELA Administration Ondansetron HCl 4 mg 08/30/25 18:57 Ondansetron Inj 4 Mg/2 Ml Vial IV PUSH Q4H PRN Nausea Quetiapine Fumarate 150 mg 08/31/25 01:20 08/31/25 21:27 Quetiapine Fumarate 25 Mg Tablet PO 150 mg HS MARIANELA Administration Ropinirole HCl 0.5 mg 08/31/25 01:20 08/31/25 21:27 Ropinirole Hcl 0.5 Mg Tablet PO 0.5 mg QHS MARIANELA Administration Ropinirole HCl 1 mg 08/31/25 01:20 08/31/25 21:27 Ropinirole Hcl 1 Mg Tablet PO 1 mg QHS MARIANELA Administration Timolol Maleate 1 drop 08/31/25 09:00 09/01/25 09:36 Timolol Maleate 0.5% Op Soln 5 Ml Bottle EACH EYE 1 drop BID MARIANELA Administration Trazodone HCl 200 mg 08/31/25 01:15 08/31/25 21:30 Trazodone Hcl 50 Mg Tablet PO 200 mg QHS PRN Administration Insomnia Trolamine Salicylate 1 applic 08/31/25 04:02 Trolamine Salicylate 10% (*Bkc) 113 Gm Cream TOPICAL BID PRN restless leg(s) Radiology Results: ITS Impressions Chest X-Ray 08/30/25 16:43 IMPRESSION: 1. Portable chest x-ray with no focal acute process. Chest/Abdomen/Pelvis CT 08/30/25 17:58 IMPRESSION: 1. Small pericardial effusion. 2: Mediastinal lymphadenopathy, likely reactive. 3: No findings to account for patient's blood in stool. 4: Small cystic masses in the pancreas which may represent focally dilated pancreatic duct. The differential diagnosis includes pseudocyst, intraductal papillary mucinous neoplasm (IPMN), mucinous cystic neoplasm (MCN), and the less common serous cystadenoma and neuroendocrine tumor. 5: Periumbilical hernia containing fat and fluid. No evidence for bowel obstruction. Labs Labs: Laboratory Results - last 24 hr 08/31/25 08/31/25 08/31/25 12:11 13:52 18:54 Sodium 125 L 124 L Potassium Chloride Carbon Dioxide Anion Gap BUN Creatinine Estim Creat Clear Calc Estimated GFR Glucose Serum Osmolality Cancelled Calcium Phosphorus Albumin TSH (Reflex) 8.260 H Free T4 1.39 Random Cortisol 14.70 U Random Total Protein 10 Ur Random Sodium 20 Ur Random Urea 394 Urine Creatinine 73.0 Protein/Creat Ratio 2 0.14 09/01/25 05:42 Sodium 125 L Potassium 3.9 Chloride 94 L Carbon Dioxide 21 L Anion Gap 10 BUN 35 H Creatinine 1.94 H Estim Creat Clear Calc 24 Estimated GFR 25 L Glucose 85 Serum Osmolality Calcium 8.8 Phosphorus 3.3 Albumin 3.5 TSH (Reflex) Free T4 Random Cortisol U Random Total Protein Ur Random Sodium Ur Random Urea Urine Creatinine Protein/Creat Ratio 2
[2025-09-01] MEDS: SODIUM CHLORIDE 1 GM TABLET PO ×2 (12:00→17:46)
[2025-09-01] MEDS: FERROUS SULFATE 325 MG TABLET PO (12:00)
[2025-09-01 12:02] LABS: Hematocrit 32.2 % (37.0-47.0); Hemoglobin 10.2 g/dL (12.0-15.0); Immature Granulocyte Percent A 0.2 % (0-0.5); Lymphocytes Absolute Auto 0.86 K/mm3 (0.9-3.2); Mean Corpuscular HGB Conc 31.7 g/dl (32-36); Mean Corpuscular Hemoglobin 25.2 pg (26-34); Mean Corpuscular Volume 79.7 fl (80-100); Nucleated Red Blood Cells Absolute Auto 0.000 K/mm3 (0.0-0.012); Nucleated Red Blood Cells Perc 0.0 % (0.0-0.2); Platelet Count Result 197 k/mm3 (150-375); Red Blood Count 4.04 M/mm3 (4.2-5.4); White Blood Count 4.7 K/mm3 (4.5-10.0)
[2025-09-01 17:02] LABS: Sodium 126 mmol/L (137-145)
[2025-09-01] MEDS: FUROSEMIDE 20 MG TABLET PO (17:46)
[2025-09-01] MEDS: LIOTHYRONINE SODIUM 5 MCG TABLET PO (20:27)
[2025-09-02] VITALS (9 sets, daily range): BP systolic 126–153; BP diastolic 57–68; PULSE 70–97; RESP 16–19; TEMP 36.3–36.6; O2SAT 97–99
[2025-09-02] MEDS: LEVOTHYROXINE SODIUM 100 MCG TABLET PO (05:44)
[2025-09-02 06:18] LABS: Hematocrit 33.6 % (37.0-47.0); Hemoglobin 10.7 g/dL (12.0-15.0); Mean Corpuscular HGB Conc 31.8 g/dl (32-36); Mean Corpuscular Hemoglobin 25.2 pg (26-34); Mean Corpuscular Volume 79.1 fl (80-100); Platelet Count Result 218 k/mm3 (150-375); Red Blood Count 4.25 M/mm3 (4.2-5.4); White Blood Count 3.2 K/mm3 (4.5-10.0)
[2025-09-02 06:37] LABS: Albumin Level 3.5 g/dL (3.5-5.1); Anion Gap 9 mmol/L (4-12); Blood Urea Nitrogen 28 mg/dL (7-17); Calcium 9.2 mg/dL (8.4-10.2); Carbon Dioxide 26 mmol/L (22-30); Chloride 95 mmol/L (98-107); Estimated CRCL calculation 26 ml/min; Estimated Glomerular Filt Rate 28; Glucose 102 mg/dL (65-110); Potassium 3.6 mmol/L (3.4-5.0); Sodium 130 mmol/L (137-145)
--- NOTE | 2025-09-02 06:51 | P.PNIM_ITS ---
Progress Note: A&P Assessment and Plan (1) Heart valve disease: Code(s): I38 - Endocarditis, valve unspecified Status: Acute Assessment and Plan: * moderate mixed aortic valvular disease with moderate and moderate AI * Severe mitral annular calcification with [id number] MR and at least mild mitral stenosis * Plan for ANANTH - likely tomorrow depending on anesthesia availability (2) Generalized weakness: Code(s): R53.1 - Weakness Status: Acute Assessment and Plan: Endorses generalized weakness for the past several weeks. Has reportedly been on Mounjaro for about 6 weeks, has been dealing with nausea, multiple episodes of emesis, intermittent constipation and diarrhea * Has taken several doses of MiraLax and other stool softeners at home and is now having diarrhea * Took a dose of Imodium on Tuesday for diarrhea after having a darker stool * Denies any CP, abdominal pain, but does endorse exertional dyspnea * Likely multifactorial in nature: DIXIE, electrolyte imbalance, cardiac (structural) * PT/OT evals - recommend either HH or inpt rehab depends on progress during hospitalization (3) Black tarry stools: Code(s): K92.1 - Melena Status: Acute Assessment and Plan: * Has not had any episodes of stools since Tuesday as she has taken Imodium * Monitor serum electrolytes, CBC, hemoglobin/hematocrit q.8 hours. If hemoglobin drops below 7 transfuse packed red blood cells * Monitor for bloody bowel movements,chest pain,SOB or dizziness/lightheadedness * DVT Px: SCDs * Avoid anti-coagulations * No episodes last evening/this AM (4) Acute diarrhea: Code(s): R19.7 - Diarrhea, unspecified Status: Acute Assessment and Plan: * See above (5) Acute renal failure superimposed on stage 4 chronic kidney disease: Qualifiers: Acute renal failure type: unspecified Qualified Code(s): N17.9 - Acute kidney failure, unspecified; N18.4 - Chronic kidney disease, stage 4 (severe) Code(s): N17.9 - Acute kidney failure, unspecified; N18.4 - Chronic kidney disease, stage 4 (severe) Status: Acute Assessment and Plan: * Creatinine: 2.54, GFR: 18, BUN: 41 (baseline creatinine appears to be 1.5- 1.7) * IV Fluids: 2L NS * Trend renal function * Trend electrolytes, correct as needed * Cr continues to improve 3.2 -> 1.79 (6) Hyponatremia: Code(s): E87.1 - Hypo-osmolality and hyponatremia Status: Acute Assessment and Plan: * Upon admission: Na one hundred twenty-five * 08/31: Na 123 * Likely hypovolemic hyponatremia * TSH 10.4, Free T4 1.3, Total T3 0.78 * Cortisol pending, urine/serium osmolality pending * SPEP and urine sodium pending * Hold HCTZ, losartan * avoid nephrotoxic medications * Nephrology consult - appreciate further recommendations * 09/02: Na 123 -> 125 -> 130 (7) Mediastinal lymphadenopathy: Code(s): R59.0 - Localized enlarged lymph nodes Status: Acute Assessment and Plan: * Indeterminate clinical significance * Likely reactive in nature (8) Elevated lipase: Code(s): R74.8 - Abnormal levels of other serum enzymes Status: Acute Assessment and Plan: * Lipase on 08/30: 503 * Denies any abdominal pain * Abd CT: Small cystic masses in the pancreas which may represent focally dilated pancreatic duct. The differential diagnosis includes pseudocyst, intraductal papillary mucinous neoplasm (IPMN), mucinous cystic neoplasm (MCN), and the less common serous cystadenoma and neuroendocrine tumor. * Imagining not suggestive of pancreatitis (9) Acute hypokalemia: Code(s): E87.6 - Hypokalemia Status: Acute Assessment and Plan: * Upon admission, K 3.6 * After bolus of IVFs, K 3.1 * Given 40 meq oral supplementation * 09/02: K 3.6 * Continue to monitor daily labs (10) Cognitive dysfunction: Code(s): F09 - Unspecified mental disorder due to known physiological condition Status: Acute Assessment and Plan: * minimize any sedating medications * continue patient's home Requip at trazodone and Seroquel given her known history of bipolar depression (11) Hypothyroidism: Qualifiers: Hypothyroidism type: unspecified Qualified Code(s): E03.9 - Hypothyroidism, unspecified Code(s): E03.9 - Hypothyroidism, unspecified Status: Chronic Assessment and Plan: * continue levothyroxine * TSH 10.4, Free T4 1.3, Total T3 0.78 Subjective Date/time seen: 09/02/25 06:51 Interval history: 74-year-old female with a past medical history chronic kidney disease stage 4, hepatic steatosis, aortic stenosis, COPD, diastolic heart failure, hypothyroidism and obstructive sleep apnea and obesity who presented to the ER from home due to diarrhea and increased weakness. 09/02/2025 Patient sitting comfortably in bed at time of examination. Patient is feeling well today. Sodium continues to improve, up to 130 today. PT/OT recommending in patient rehab - working with [facility] regarding placement. Planning for ANANTH per cardiology - likely tomorrow. Review of Systems Review of Systems: 12 systems were reviewed with pertinent positives and negatives per HPI. Except as documented in the HPI, all other systems were reviewed and are negative. She reports that her back pain although briefly relieved after she received a nerve stimulator in October has been worse over the last 6 months or so. She denies any loss of bowel or bladder control. She has chronic urinary frequency. She denies dysuria. Exam Narrative: Weight 86.3 kg BMI 34.8 Const: Other: Obese, no acute distress, appears older than stated age HENMT: Other: Mucous membranes are overtly dry, head is normocephalic atraumatic Eyes: Other: Pupils are equal and reactive, positive conjunctival pallor, no scleral icterus Neck: Other: No JVD, no lymphadenopathy Resp: Other: Clear to auscultation bilaterally, no increased work of breathing Cardio: Other: Irregularly irregular, rate controlled, 2+ bilateral radial pedal pulses, 2/6 systolic murmur GI: Other: Soft, nontender, nondistended, normoactive bowel sounds Skin: Other: Mild pallor, non jaundice Neuro: Other: Alert oriented x4, speech is clear, no facial asymmetry some mild difficulty with word finding, no localizing neurologic deficits noted during the course of conversation Extrem: Other: 1+ edema left lower extremity no edema r ight lower extremity Psych: Other: Appropriate mood and affect, pleasant and cooperative Objective Data Vital Signs Vital Signs: Vital Signs - 24 hr 09/01/25 08:00 09/01/25 08:00 09/01/25 10:23 Temperature Pulse Rate 88 Respiratory Rate Blood Pressure Pulse Oximetry 96 Oxygen Delivery Room Air Room Air 09/01/25 11:40 09/01/25 12:00 09/01/25 14:00 Temperature 97.9 F Pulse Rate 85 76 Respiratory Rate 14 Blood Pressure 116/56 L Pulse Oximetry 98 Oxygen Delivery Room Air 09/01/25 16:00 09/01/25 20:09 09/01/25 20:27 Temperature 97.6 F Pulse Rate 84 77 75 Respiratory Rate 18 Blood Pressure 142/54 H Pulse Oximetry 100 Oxygen Delivery 09/02/25 00:00 09/02/25 04:00 09/02/25 04:17 Temperature 97.8 F Pulse Rate 70 71 71 Respiratory Rate 16 Blood Pressure 130/58 L Pulse Oximetry 97 Oxygen Delivery Intake/Output Intake/Output: Intake & Output 08/30/25 08/31/25 09/01/25 09/02/25 23:59 23:59 23:59 23:59 Intake Total 920 1600 1680 300 Output Total 470 300 Balance 450 1600 1380 300 Meds/Results Medications: Active Medications Generic Name Dose Route Start Last Admin Trade Name Freq PRN Reason Stop Dose Admin Acetaminophen 650 mg 08/30/25 18:57 Acetaminophen 325 Mg Tablet PO Q4H PRN Mild Pain (1-3) or Fever Aspirin 81 mg 08/31/25 09:00 09/01/25 09:35 Aspirin 81 Mg Enteric Tablet PO 81 mg DAILY MARIANELA Administration Ferrous Sulfate 325 mg 08/31/25 11:00 09/01/25 12:00 Ferrous Sulfate 325 Mg Tablet PO 325 mg DAILY@1100 MARIANELA Administration Furosemide 20 mg 09/01/25 17:15 09/01/25 17:46 Furosemide 20 Mg Tablet PO 20 mg BID MARIANELA Administration Levothyroxine Sodium 100 mcg 08/31/25 06:30 09/02/25 05:44 Levothyroxine Sodium 100 Mcg Tablet PO 100 mcg DAILY@0630 MARIANELA Administration Liothyronine Sodium 5 mcg 08/31/25 21:00 09/01/25 20:27 Liothyronine Sodium 5 Mcg Tablet PO 5 mcg HS MARIANELA Administration Ondansetron HCl 4 mg 08/30/25 18:57 Ondansetron Inj 4 Mg/2 Ml Vial IV PUSH Q4H PRN Nausea Quetiapine Fumarate 150 mg 08/31/25 01:20 09/01/25 20:26 Quetiapine Fumarate 25 Mg Tablet PO 150 mg HS MARIANELA Administration Ropinirole HCl 0.5 mg 08/31/25 01:20 09/01/25 20:26 Ropinirole Hcl 0.5 Mg Tablet PO 0.5 mg QHS MARIANELA Administration Ropinirole HCl 1 mg 08/31/25 01:20 09/01/25 20:26 Ropinirole Hcl 1 Mg Tablet PO 1 mg QHS MARIANELA Administration Sodium Chloride 1 gm 09/01/25 10:15 09/01/25 17:46 Sodium Chloride 1 Gm Tablet PO 1 gm BID MARIANELA Administration Timolol Maleate 1 drop 08/31/25 09:00 09/01/25 17:46 Timolol Maleate 0.5% Op Soln 5 Ml Bottle EACH EYE 1 drop BID MARIANELA Administration Trazodone HCl 200 mg 08/31/25 01:15 08/31/25 21:30 Trazodone Hcl 50 Mg Tablet PO 200 mg QHS PRN Administration Insomnia Trolamine Salicylate 1 applic 08/31/25 04:02 Trolamine Salicylate 10% (*Bkc) 113 Gm Cream TOPICAL BID PRN restless leg(s) Radiology Results: ITS Impressions Chest X-Ray 08/30/25 16:43 IMPRESSION: 1. Portable chest x-ray with no focal acute process. Chest/Abdomen/Pelvis CT 08/30/25 17:58 IMPRESSION: 1. Small pericardial effusion. 2: Mediastinal lymphadenopathy, likely reactive. 3: No findings to account for patient's blood in stool. 4: Small cystic masses in the pancreas which may represent focally dilated pancreatic duct. The differential diagnosis includes pseudocyst, intraductal papillary mucinous neoplasm (IPMN), mucinous cystic neoplasm (MCN), and the less common serous cystadenoma and neuroendocrine tumor. 5: Periumbilical hernia containing fat and fluid. No evidence for bowel obstruction. Labs Labs: Laboratory Results - last 24 hr 09/01/25 09/01/25 09/01/25 05:39 05:42 16:46 WBC 4.7 RBC 4.04 L Hgb 10.2 L Hct 32.2 L MCV 79.7 L MCH 25.2 L MCHC 31.7 L RDW 13.6 Plt Count 197 MPV 9.3 Immature Gran % (Auto) 0.2 Neut % (Auto) 68.7 Lymph % (Auto) 18.1 L Russell % (Auto) 11.8 H Eos % (Auto) 0.8 Baso % (Auto) 0.4 Lymph # (Auto) 0.86 L Russell # (Auto) 0.6 Eos # (Auto) 0.0 Baso # (Auto) 0.0 Abs Immat Gran (auto) 0.01 Absolute Neuts (auto) 3.3 Absolute Nucleated RBC 0.000 Nucleated RBC % 0.0 Sodium 125 L 126 L Potassium 3.9 Chloride 94 L Carbon Dioxide 21 L Anion Gap 10 BUN 35 H Creatinine 1.94 H Estim Creat Clear Calc 24 Estimated GFR 25 L Glucose 85 Calcium 8.8 Phosphorus 3.3 Albumin 3.5 09/02/25 05:31 WBC 3.2 L RBC 4.25 Hgb 10.7 L Hct 33.6 L MCV 79.1 L MCH 25.2 L MCHC 31.8 L RDW 13.5 Plt Count 218 MPV 9.0 Immature Gran % (Auto) Neut % (Auto) Lymph % (Auto) Russell % (Auto) Eos % (Auto) Baso % (Auto) Lymph # (Auto) Russell # (Auto) Eos # (Auto) Baso # (Auto) Abs Immat Gran (auto) Absolute Neuts (auto) Absolute Nucleated RBC Nucleated RBC % Sodium 130 L Potassium 3.6 Chloride 95 L Carbon Dioxide 26 Anion Gap 9 BUN 28 H Creatinine 1.79 H Estim Creat Clear Calc 26 Estimated GFR 28 L Glucose 102 Calcium 9.2 Phosphorus 3.0 Albumin 3.5 Quality VTE Prophylaxis VTE prophylaxis: mechanical ordered (SCDs)
[2025-09-02] MEDS: TIMOLOL MALEATE 0.5% OP SOLN 5 ML BOTTLE 1 DROP EACH EYE ×2 (08:47→17:08)
[2025-09-02] MEDS: FUROSEMIDE 20 MG TABLET PO ×2 (08:47→17:08)
[2025-09-02] MEDS: SODIUM CHLORIDE 1 GM TABLET PO ×2 (08:47→17:08)
[2025-09-02] MEDS: ASPIRIN 81 MG ENTERIC TABLET PO (08:47)
--- NOTE | 2025-09-02 09:10 | P.PNNP_ITS ---
Progress Note: A&P Assessment and Plan (1) Hyponatremia: Code(s): E87.1 - Hypo-osmolality and hyponatremia Status: Acute Assessment and Plan: * ongoing improvement noted * noted on admission as well * evaluation to date noted: * urine electrolytes prerenal * cortisol good * TSH slightly elevated * serum/urine osmolality pending * UPEP/SPEP pending (although previous testing noted with negative serum/urine immunofixation) * suspected etiology due to volume depletion/hypovolemia in the context of HCTZ use/therapy * s/p IVFs * now on fluid restriction in addition to salt tablets * follow trend of repeat sodiums (2) Acute kidney injury: Code(s): N17.9 - Acute kidney failure, unspecified Status: Acute Assessment and Plan: * slow and steady improvement noted * as noted on admission (creatinine of 3.20mg/dl) * likely due to dehydration/volume depletion +/- contrast exposure * however, creatinine was elevated prior to CTA... * evaluation to date noted: * CT imaging without obstruction * urine electrolytes prerenal * no significant proteinuria * CPK mildly elevated (but not enought to affect kidney function * continue supportive therapy * follow repeat labs and UOP (3) Stage 4 chronic kidney disease: Code(s): N18.4 - Chronic kidney disease, stage 4 (severe) Status: Chronic Assessment and Plan: * baseline creatinine was running ~ 1.4 - 1.7mg/dl * this causes her to fluctuate between CKD stage 3b and stage 4 * felt to be secondary to hypertension, vascular disease, obstructive sleep apnea, and age-related change * outpatient evaluation noted: * renal ultrasound consistent with CKD * no significant proteinuria * negative serological profile (4) Mitral and aortic valve disease: Code(s): I08.0 - Rheumatic disorders of both mitral and aortic valves Status: Acute Assessment and Plan: * as noted by TTE * Cardiology following * noted plan for ANANTH for further evaluation/assessment (5) Anemia: Code(s): D64.9 - Anemia, unspecified Status: Acute Assessment and Plan: * possibly related to DIXIE and CKD * however, reportedly had black tarry stools prior to admission * adequate iron stores by anemia studies * consider VALARIE while hospitalized * follow trend of H/H (6) Benign hypertension with chronic kidney disease: Code(s): I12.9 - Hypertensive chronic kidney disease with stage 1 through stage 4 chronic kidney disease, or unspecified chronic kidney disease Status: Acute Assessment and Plan: * reasonable control * follow trend of hemodynamics (7) Diabetes: Code(s): E11.9 - Type 2 diabetes mellitus without complications Status: Chronic Assessment and Plan: * diet controlled * follow blood sugars (8) Generalized weakness: Code(s): R53.1 - Weakness Status: Acute Assessment and Plan: * probably multifactorial: * related to GI symptoms (nausea, emesis, diarrhea...etc) * DIXIE/ARF * electrolyte issues * heart disease (valves, pulmonary HTH, diastolic dysfunction...etc) * PT/OT following Will continue to follow. L Subjective Date/time seen: 09/02/25 09:10 Interval history: Follow-up for acute kidney injury/acute renal failure on chronic kidney disease and acute hyponatremia. Chart reviewed -- assuming care from Dr. Smith; renal function/creatinine continues to improve as is her sodium level with current therapy/interventions; sitting up in chair at the time of my visit in no apparent distress; working with PT/OT as tolerated; noted plans for ANANTH this week. Exam 2 Narrative: General: elderly but WD/WN female in NAD Heart: normal S1 and S2; no rub Lungs: clear to auscultation Abdomen: soft, nontender, nondistended, positive bowel sounds Extremities: no cyanosis or clubbing; no edema Skin: warm and dry Objective Data Vital Signs Vital Signs: Vital Signs Temp Pulse Resp BP Pulse Ox O2 Del Method 09/02/25 08:00 88 09/02/25 08:00 Room Air 09/02/25 04:17 97.8 F 71 16 130/58 L 97 09/02/25 04:00 71 09/02/25 00:00 70 09/01/25 20:27 75 09/01/25 20:09 97.6 F 77 18 142/54 H 100 09/01/25 16:00 84 09/01/25 14:00 97.9 F 76 14 116/56 L 98 Intake/Output Intake/Output: Intake & Output 08/30/25 08/31/25 09/01/25 09/02/25 23:59 23:59 23:59 23:59 Intake Total 920 1600 1680 644 Output Total 470 300 Balance 450 1600 1380 644 Meds/Results Medications: Active Medications Generic Name Dose Route Start Last Admin Trade Name Steven PRN Reason Stop Dose Admin Acetaminophen 650 mg 08/30/25 18:57 Acetaminophen 325 Mg Tablet PO Q4H PRN Mild Pain (1-3) or Fever Aspirin 81 mg 08/31/25 09:00 09/02/25 08:47 Aspirin 81 Mg Enteric Tablet PO 81 mg DAILY MARIANELA Administration Ferrous Sulfate 325 mg 08/31/25 11:00 09/02/25 10:38 Ferrous Sulfate 325 Mg Tablet PO 325 mg DAILY@1100 MARIANELA Administration Furosemide 20 mg 09/01/25 17:15 09/02/25 08:47 Furosemide 20 Mg Tablet PO 20 mg BID MARIANELA Administration Levothyroxine Sodium 100 mcg 08/31/25 06:30 09/02/25 05:44 Levothyroxine Sodium 100 Mcg Tablet PO 100 mcg DAILY@0630 MARIANELA Administration Liothyronine Sodium 5 mcg 08/31/25 21:00 09/01/25 20:27 Liothyronine Sodium 5 Mcg Tablet PO 5 mcg HS MARIANELA Administration Ondansetron HCl 4 mg 08/30/25 18:57 Ondansetron Inj 4 Mg/2 Ml Vial IV PUSH Q4H PRN Nausea Quetiapine Fumarate 150 mg 08/31/25 01:20 09/01/25 20:26 Quetiapine Fumarate 25 Mg Tablet PO 150 mg HS MARIANELA Administration Ropinirole HCl 0.5 mg 08/31/25 01:20 09/01/25 20:26 Ropinirole Hcl 0.5 Mg Tablet PO 0.5 mg QHS MARIANELA Administration Ropinirole HCl 1 mg 08/31/25 01:20 09/01/25 20:26 Ropinirole Hcl 1 Mg Tablet PO 1 mg QHS MARIANELA Administration Sodium Chloride 1 gm 09/01/25 10:15 09/02/25 08:47 Sodium Chloride 1 Gm Tablet PO 1 gm BID MARIANELA Administration Timolol Maleate 1 drop 08/31/25 09:00 09/02/25 08:47 Timolol Maleate 0.5% Op Soln 5 Ml Bottle EACH EYE 1 drop BID MARIANELA Administration Trazodone HCl 200 mg 08/31/25 01:15 08/31/25 21:30 Trazodone Hcl 50 Mg Tablet PO 200 mg QHS PRN Administration Insomnia Trolamine Salicylate 1 applic 08/31/25 04:02 Trolamine Salicylate 10% (*Bkc) 113 Gm Cream TOPICAL BID PRN restless leg(s) Radiology Results: ITS Impressions Chest X-Ray 08/30/25 16:43 IMPRESSION: 1. Portable chest x-ray with no focal acute process. Chest/Abdomen/Pelvis CT 08/30/25 17:58 IMPRESSION: 1. Small pericardial effusion. 2: Mediastinal lymphadenopathy, likely reactive. 3: No findings to account for patient's blood in stool. 4: Small cystic masses in the pancreas which may represent focally dilated pancreatic duct. The differential diagnosis includes pseudocyst, intraductal papillary mucinous neoplasm (IPMN), mucinous cystic neoplasm (MCN), and the less common serous cystadenoma and neuroendocrine tumor. 5: Periumbilical hernia containing fat and fluid. No evidence for bowel obstruction. Labs Labs: Laboratory Tests 09/02/25 05:31 09/02/25 05:31 Calcium 9.2 Phosphorus 3.0 Albumin 3.5
[2025-09-02] MEDS: FERROUS SULFATE 325 MG TABLET PO (10:38)
[2025-09-02] MEDS: LIOTHYRONINE SODIUM 5 MCG TABLET PO (20:40)
[2025-09-03] VITALS (9 sets, daily range): BP systolic 106–154; BP diastolic 57–92; PULSE 75–88; RESP 16–19; TEMP 36.2–36.8; O2SAT 97–100
--- NOTE | 2025-09-03 | ECHO_ITS ---
Patient Info Name: Katelin Edgar Age: 74 years : 1950 Gender: Female Ht: 62 in Wt: 190 lbs BSA: 1.98 m2 Exam Date: 09/03/2025 10:11 AM Patient Status: I Admit Date: 08/31/2025 Exam Type: CA echo transesophageal Staff Referring Physician: Rupa Rey Attending Provider: Jay Rodrigues Oca Summary 1. There is normal biventricular size and systolic function. 2. The aortic valve is trileaflet and calcified. There is severe aortic stenosis with a valve area of 0.8cm2 by planimetry. There is mild aortic regurgitation. 3. The mitral valve leaflets are sclerotic. The posterior mitral valve leaflet is restricted and calcified. There is moderate mitral stenosis with area of 1.3cm2 by planimetry. There is mild mitral regurgitation. 4. The left atrium is dilated. 5. There is mild atherosclerotic plaque in the visualized portions of the aorta. Complications There were no complication prior to, during or in recovery from the transesophageal echocardiogram. Medications The posterior pharynx was sprayed with Cetacaine spray. Sedation was provided by Anesthesia team. Procedure Details The patient arrived in a fasting state after obtaining informed consent. The transesophageal probe was passed into the posterior pharynx, mid-esophagus, distal esophagus, and gastric fundus. Imaging was performed at multiple levels. The patient tolerated the procedure well and there were no complications. The patient was transferred out of the examination area in satisfactory condition. Left Ventricle The left ventricle is normal in size and systolic function. Right Ventricle The right ventricle is normal in size and systolic function. Left Atria The left atrium is dilated. Right Atria The right atrium is normal size. Atrial Septum The atrial septum is intact by color Doppler. Atrial Appendage There is no thrombus in the atrial appendage. Aortic Valve The aortic valve is trileaflet and calcified. There is severe aortic stenosis with a valve area of 0.8cm2 by planimetry. There is mild aortic regurgitation. Pulmonic Valve The pulmonic valve is normal. There is no pulmonic valve regurgitation. Mitral Valve The mitral valve leaflets are sclerotic. The posterior mitral valve leaflet is restricted and calcified. There is moderate mitral stenosis with area of 1.3cm2 by planimetry. There is mild mitral regurgitation. Tricuspid Valve The tricuspid valve is normal. There is trace tricuspid regurgitation. Pericardium/Pleural Pericardium is normal in appearance with no evidence for significant pericardial effusion. Aorta There is mild atherosclerotic plaque in the visualized portions of the aorta. Left Ventricular Outflow Tract Name Value Normal LVOT 2D LVOT Diameter 1.8 cm LVOT Doppler LVOT Peak Velocity 129 cm/s LVOT Peak Gradient 5 mmHg LVOT Mean Gradient 3 mmHg LVOT VTI 29 cm LVOT VTI/AV VTI Ratio 0.5 LVOT Stroke Volume 71 ml LVOT CO 5.7 l/min LVOT CI 3.0 l/min/m2 Mitral Valve Name Value Normal MV 2D/MM MV Area (Planimetry) 1.3 cm2 Aortic Valve Name Value Normal AV 2D/MM AV Area (Planimetry) 0.5 cm2 AV Doppler AV Peak Velocity 350 cm/s AV Peak Gradient 40 mmHg AV Mean Gradient 23 mmHg AV VTI 64 cm AV Area (Cont Eq VTI) 1.2 cm2 >=3.0 AV Area (Cont Eq Bear) 0.9 cm2 AV DI (Bear) 0.37 AV Regurgitation 2D LVOT Area 2.6 cm2 Ventricles Name Value Normal LV Dimensions 2D/MM LVOT Diameter 1.8 cm Report Signatures
[2025-09-03] MEDS: LEVOTHYROXINE SODIUM 100 MCG TABLET PO (05:35)
[2025-09-03 07:38] LABS: Hematocrit 33.6 % (37.0-47.0); Hemoglobin 10.9 g/dL (12.0-15.0); Immature Granulocyte Percent A 0.3 % (0-0.5); Lymphocytes Absolute Auto 0.70 K/mm3 (0.9-3.2); Mean Corpuscular HGB Conc 32.4 g/dl (32-36); Mean Corpuscular Hemoglobin 25.7 pg (26-34); Mean Corpuscular Volume 79.2 fl (80-100); Nucleated Red Blood Cells Absolute Auto 0.000 K/mm3 (0.0-0.012); Nucleated Red Blood Cells Perc 0.0 % (0.0-0.2); Platelet Count Result 215 k/mm3 (150-375); Red Blood Count 4.24 M/mm3 (4.2-5.4); White Blood Count 3.0 K/mm3 (4.5-10.0)
--- NOTE | 2025-09-03 07:40 | P.PNIM_ITS ---
Progress Note: A&P Assessment and Plan (1) Heart valve disease: Code(s): I38 - Endocarditis, valve unspecified Status: Acute Assessment and Plan: * moderate mixed aortic valvular disease with moderate and moderate AI * Severe mitral annular calcification with ghfc-[id number] MR and at least mild mitral stenosis * Plan for ANANTH - likely tomorrow depending on anesthesia availability (2) Generalized weakness: Code(s): R53.1 - Weakness Status: Acute Assessment and Plan: Endorses generalized weakness for the past several weeks. Has reportedly been on Mounjaro for about 6 weeks, has been dealing with nausea, multiple episodes of emesis, intermittent constipation and diarrhea * Has taken several doses of MiraLax and other stool softeners at home and is now having diarrhea * Took a dose of Imodium on Tuesday for diarrhea after having a darker stool * Denies any CP, abdominal pain, but does endorse exertional dyspnea * Likely multifactorial in nature: DIXIE, electrolyte imbalance, cardiac (structural) * PT/OT evals - recommend either HH or inpt rehab depends on progress during hospitalization (3) Black tarry stools: Code(s): K92.1 - Melena Status: Acute Assessment and Plan: * Has not had any episodes of stools since Tuesday as she has taken Imodium * Monitor serum electrolytes, CBC, hemoglobin/hematocrit q.8 hours. If hemoglobin drops below 7 transfuse packed red blood cells * Monitor for bloody bowel movements,chest pain,SOB or dizziness/lightheadedness * DVT Px: SCDs * Avoid anti-coagulations * No episodes last evening/this AM (4) Acute diarrhea: Code(s): R19.7 - Diarrhea, unspecified Status: Acute Assessment and Plan: * See above (5) Acute renal failure superimposed on stage 4 chronic kidney disease: Qualifiers: Acute renal failure type: unspecified Qualified Code(s): N17.9 - Acute kidney failure, unspecified; N18.4 - Chronic kidney disease, stage 4 (severe) Code(s): N17.9 - Acute kidney failure, unspecified; N18.4 - Chronic kidney disease, stage 4 (severe) Status: Acute Assessment and Plan: * Creatinine: 2.54, GFR: 18, BUN: 41 (baseline creatinine appears to be 1.5- 1.7) * IV Fluids: 2L NS * Trend renal function * Trend electrolytes, correct as needed * Cr continues to improve 3.2 -> 1.79 (6) Hyponatremia: Code(s): E87.1 - Hypo-osmolality and hyponatremia Status: Acute Assessment and Plan: * Upon admission: Na one hundred twenty-five * 08/31: Na 123 * Likely hypovolemic hyponatremia * TSH 10.4, Free T4 1.3, Total T3 0.78 * Cortisol pending, urine/serium osmolality pending * SPEP and urine sodium pending * Hold HCTZ, losartan * avoid nephrotoxic medications * Nephrology consult - appreciate further recommendations * 09/02: Na 123 -> 125 -> 130 (7) Mediastinal lymphadenopathy: Code(s): R59.0 - Localized enlarged lymph nodes Status: Acute Assessment and Plan: * Indeterminate clinical significance * Likely reactive in nature (8) Elevated lipase: Code(s): R74.8 - Abnormal levels of other serum enzymes Status: Acute Assessment and Plan: * Lipase on 08/30: 503 * Denies any abdominal pain * Abd CT: Small cystic masses in the pancreas which may represent focally dilated pancreatic duct. The differential diagnosis includes pseudocyst, intraductal papillary mucinous neoplasm (IPMN), mucinous cystic neoplasm (MCN), and the less common serous cystadenoma and neuroendocrine tumor. * Imagining not suggestive of pancreatitis (9) Acute hypokalemia: Code(s): E87.6 - Hypokalemia Status: Acute Assessment and Plan: * Upon admission, K 3.6 * After bolus of IVFs, K 3.1 * Given 40 meq oral supplementation * 09/02: K 3.6 * Continue to monitor daily labs (10) Cognitive dysfunction: Code(s): F09 - Unspecified mental disorder due to known physiological condition Status: Acute Assessment and Plan: * minimize any sedating medications * continue patient's home Requip at trazodone and Seroquel given her known history of bipolar depression (11) Hypothyroidism: Qualifiers: Hypothyroidism type: unspecified Qualified Code(s): E03.9 - Hypothyroidism, unspecified Code(s): E03.9 - Hypothyroidism, unspecified Status: Chronic Assessment and Plan: * continue levothyroxine * TSH 10.4, Free T4 1.3, Total T3 0.78 Subjective Date/time seen: 09/03/25 07:40 Interval history: 74-year-old female with a past medical history chronic kidney disease stage 4, hepatic steatosis, aortic stenosis, COPD, diastolic heart failure, hypothyroidism and obstructive sleep apnea and obesity who presented to the ER from home due to diarrhea and increased weakness. 09/03/2025 Patient sitting comfortably in bed at time of examination. Review of Systems Review of Systems: 12 systems were reviewed with pertinent positives and negatives per HPI. Except as documented in the HPI, all other systems were reviewed and are negative. She reports that her back pain although briefly relieved after she received a nerve stimulator in October has been worse over the last 6 months or so. She denies any loss of bowel or bladder control. She has chronic urinary frequency. She denies dysuria. Exam Narrative: Weight 86.3 kg BMI 34.8 Const: Other: Obese, no acute distress, appears older than stated age HENMT: Other: Mucous membranes are overtly dry, head is normocephalic atraumatic Eyes: Other: Pupils are equal and reactive, positive conjunctival pallor, no scleral icterus Neck: Other: No JVD, no lymphadenopathy Resp: Other: Clear to auscultation bilaterally, no increased work of breathing Cardio: Other: Irregularly irregular, rate controlled, 2+ bilateral radial pedal pulses, 2/6 systolic murmur GI: Other: Soft, nontender, nondistended, normoactive bowel sounds Skin: Other: Mild pallor, non jaundice Neuro: Other: Alert oriented x4, speech is clear, no facial asymmetry some mild difficulty with word finding, no localizing neurologic deficits noted during the course of conversation Extrem: Other: 1+ edema left lower extremity no edema r ight lower extremity Psych: Other: Appropriate mood and affect, pleasant and cooperative Objective Data Vital Signs Vital Signs: Vital Signs - 24 hr 09/02/25 08:00 09/02/25 08:00 09/02/25 12:00 Temperature Pulse Rate 88 74 Respiratory Rate Blood Pressure Pulse Oximetry Oxygen Delivery Room Air 09/02/25 14:00 09/02/25 16:00 09/02/25 20:09 Temperature 97.3 F L 97.9 F Pulse Rate 77 78 85 Respiratory Rate 19 18 Blood Pressure 126/68 153/57 H Pulse Oximetry 98 99 Oxygen Delivery 09/02/25 20:44 09/03/25 00:00 09/03/25 04:00 Temperature Pulse Rate 97 85 88 Respiratory Rate Blood Pressure Pulse Oximetry Oxygen Delivery 09/03/25 04:17 Temperature 97.1 F L Pulse Rate 85 Respiratory Rate 18 Blood Pressure 147/57 H Pulse Oximetry 100 Oxygen Delivery Intake/Output Intake/Output: Intake & Output 08/31/25 09/01/25 09/02/25 09/03/25 23:59 23:59 23:59 23:59 Intake Total 1600 1680 1558 150 Output Total 300 Balance 1600 1380 1558 150 Meds/Results Medications: Active Medications Generic Name Dose Route Start Last Admin Trade Name Freq PRN Reason Stop Dose Admin Acetaminophen 650 mg 08/30/25 18:57 Acetaminophen 325 Mg Tablet PO Q4H PRN Mild Pain (1-3) or Fever Aspirin 81 mg 08/31/25 09:00 09/02/25 08:47 Aspirin 81 Mg Enteric Tablet PO 81 mg DAILY MARIANELA Administration Ferrous Sulfate 325 mg 08/31/25 11:00 09/02/25 10:38 Ferrous Sulfate 325 Mg Tablet PO 325 mg DAILY@1100 MARIANELA Administration Furosemide 20 mg 09/01/25 17:15 09/02/25 17:08 Furosemide 20 Mg Tablet PO 20 mg BID MARIANELA Administration Levothyroxine Sodium 100 mcg 08/31/25 06:30 09/03/25 05:35 Levothyroxine Sodium 100 Mcg Tablet PO 100 mcg DAILY@0630 MARIANELA Administration Liothyronine Sodium 5 mcg 08/31/25 21:00 09/02/25 20:40 Liothyronine Sodium 5 Mcg Tablet PO 5 mcg HS MARIANELA Administration Ondansetron HCl 4 mg 08/30/25 18:57 Ondansetron Inj 4 Mg/2 Ml Vial IV PUSH Q4H PRN Nausea Quetiapine Fumarate 150 mg 08/31/25 01:20 09/02/25 20:40 Quetiapine Fumarate 25 Mg Tablet PO 150 mg HS MARIANELA Administration Ropinirole HCl 0.5 mg 08/31/25 01:20 09/02/25 20:40 Ropinirole Hcl 0.5 Mg Tablet PO 0.5 mg QHS MARIANELA Administration Ropinirole HCl 1 mg 08/31/25 01:20 09/02/25 20:40 Ropinirole Hcl 1 Mg Tablet PO 1 mg QHS MARIANELA Administration Sodium Chloride 1 gm 09/01/25 10:15 09/02/25 17:08 Sodium Chloride 1 Gm Tablet PO 1 gm BID MARIANELA Administration Timolol Maleate 1 drop 08/31/25 09:00 09/02/25 17:08 Timolol Maleate 0.5% Op Soln 5 Ml Bottle EACH EYE 1 drop BID MARIANELA Administration Trazodone HCl 200 mg 08/31/25 01:15 08/31/25 21:30 Trazodone Hcl 50 Mg Tablet PO 200 mg QHS PRN Administration Insomnia Trolamine Salicylate 1 applic 08/31/25 04:02 Trolamine Salicylate 10% (*Bkc) 113 Gm Cream TOPICAL BID PRN restless leg(s) Radiology Results: ITS Impressions Chest X-Ray 08/30/25 16:43 IMPRESSION: 1. Portable chest x-ray with no focal acute process. Chest/Abdomen/Pelvis CT 08/30/25 17:58 IMPRESSION: 1. Small pericardial effusion. 2: Mediastinal lymphadenopathy, likely reactive. 3: No findings to account for patient's blood in stool. 4: Small cystic masses in the pancreas which may represent focally dilated pa ncreatic duct. The differential diagnosis includes pseudocyst, intraductal papillary mucinous neoplasm (IPMN), mucinous cystic neoplasm (MCN), and the less common serous cystadenoma and neuroendocrine tumor. 5: Periumbilical hernia containing fat and fluid. No evidence for bowel obstruction. Labs Labs: Laboratory Results - last 24 hr 09/03/25 07:20 WBC 3.0 L RBC 4.24 Hgb 10.9 L Hct 33.6 L MCV 79.2 L MCH 25.7 L MCHC 32.4 RDW 13.4 Plt Count 215 MPV 8.6 Immature Gran % (Auto) 0.3 Neut % (Auto) 58.1 Lymph % (Auto) 23.7 [place] % (Auto) 16.6 H Eos % (Auto) 1.0 Baso % (Auto) 0.3 Lymph # (Auto) 0.70 L [place] # (Auto) 0.5 Eos # (Auto) 0.0 Baso # (Auto) 0.0 Abs Immat Gran (auto) 0.01 Absolute Neuts (auto) 1.7 Absolute Nucleated RBC 0.000 Nucleated RBC % 0.0 Quality VTE Prophylaxis VTE prophylaxis: mechanical ordered (SCDs)
[2025-09-03 08:05] LABS: Alanine Aminotransferase 17 U/L (6-35); Albumin Level 3.6 g/dL (3.5-5.1); Alkaline Phosphatase 78 U/L (38-126); Anion Gap 7 mmol/L (4-12); Aspartate Amino Transferase 39 U/L (14-36); Bilirubin,Total 0.4 mg/dL (0.2-1.3); Blood Urea Nitrogen 24 mg/dL (7-17); Calcium 9.0 mg/dL (8.4-10.2); Carbon Dioxide 29 mmol/L (22-30); Chloride 98 mmol/L (98-107); Estimated CRCL calculation 30 ml/min; Estimated Glomerular Filt Rate 33; Glucose 95 mg/dL (65-110); Potassium 3.2 mmol/L (3.4-5.0); Sodium 134 mmol/L (137-145); Total Protein 6.4 g/dL (6.3-8.2)
[2025-09-03] MEDS: POTASSIUM CHLORIDE 20 MEQ ER TABLET PO (09:06)
[2025-09-03] MEDS: SODIUM CHLORIDE 1 GM TABLET PO (09:06)
[2025-09-03] MEDS: ASPIRIN 81 MG ENTERIC TABLET PO (09:06)
[2025-09-03] MEDS: TIMOLOL MALEATE 0.5% OP SOLN 5 ML BOTTLE 1 DROP EACH EYE (09:07)
--- NOTE | 2025-09-03 10:33 | WPDHPUPDATE1 ---
History and Physical Update Update Date/Time: 09/03/25 10:33 History and Physical has been reviewed, including an updated exam of the patient. There are NO changes in the patient's condition. Risks, benefits, and alternatives have been discussed and questions answered. Patient agrees to proceed with procedure.
--- NOTE | 2025-09-03 11:22 | PCOTNOTE ---
Patient out od the room at this time. Patient is down having a ANANTH test.
--- NOTE | 2025-09-03 14:27 | P.DS_ITS ---
DS: Admitting Diagnosis Discharge Date 09/03/2025 Admitting Diagnosis Generalized weakness, heart valve disease DS: Discharge Diagnosis Discharge Diagnosis (1) Heart valve disease: Code(s): I38 - Endocarditis, valve unspecified Status: Acute Assessment and Plan: * moderate mixed aortic valvular disease with moderate and moderate AI * Severe mitral annular calcification with [id number]-[id number] MR and at least mild mitral stenosis * Plan for ANANTH - likely tomorrow depending on anesthesia availability (2) Generalized weakness: Code(s): R53.1 - Weakness Status: Acute Assessment and Plan: Endorses generalized weakness for the past several weeks. Has reportedly been on Mounjaro for about 6 weeks, has been dealing with nausea, multiple episodes of emesis, intermittent constipation and diarrhea * Has taken several doses of MiraLax and other stool softeners at home and is now having diarrhea * Took a dose of Imodium on Tuesday for diarrhea after having a darker stool * Denies any CP, abdominal pain, but does endorse exertional dyspnea * Likely multifactorial in nature: DIXIE, electrolyte imbalance, cardiac (structural) * PT/OT evals - recommend either HH or inpt rehab depends on progress during hospitalization (3) Black tarry stools: Code(s): K92.1 - Melena Status: Acute Assessment and Plan: * Has not had any episodes of stools since Tuesday as she has taken Imodium * Monitor serum electrolytes, CBC, hemoglobin/hematocrit q.8 hours. If hemoglobin drops below 7 transfuse packed red blood cells * Monitor for bloody bowel movements,chest pain,SOB or dizziness/lightheadedness * DVT Px: SCDs * Avoid anti-coagulations * No episodes last evening/this AM (4) Acute diarrhea: Code(s): R19.7 - Diarrhea, unspecified Status: Acute Assessment and Plan: * See above (5) Acute renal failure superimposed on stage 4 chronic kidney disease: Qualifiers: Acute renal failure type: unspecified Qualified Code(s): N17.9 - Acute kidney failure, unspecified; N18.4 - Chronic kidney disease, stage 4 (severe) Code(s): N17.9 - Acute kidney failure, unspecified; N18.4 - Chronic kidney disease, stage 4 (severe) Status: Acute Assessment and Plan: * Creatinine: 2.54, GFR: 18, BUN: 41 (baseline creatinine appears to be 1.5- 1.7) * IV Fluids: 2L NS * Trend renal function * Trend electrolytes, correct as needed * Cr continues to improve 3.2 -> 1.79 (6) Hyponatremia: Code(s): E87.1 - Hypo-osmolality and hyponatremia Status: Acute Assessment and Plan: * Upon admission: Na one hundred twenty-five * 08/31: Na 123 * Likely hypovolemic hyponatremia * TSH 10.4, Free T4 1.3, Total T3 0.78 * Cortisol pending, urine/serium osmolality pending * SPEP and urine sodium pending * Hold HCTZ, losartan * avoid nephrotoxic medications * Nephrology consult - appreciate further recommendations * 09/02: Na 123 -> 125 -> 130 (7) Mediastinal lymphadenopathy: Code(s): R59.0 - Localized enlarged lymph nodes Status: Acute Assessment and Plan: * Indeterminate clinical significance * Likely reactive in nature (8) Elevated lipase: Code(s): R74.8 - Abnormal levels of other serum enzymes Status: Acute Assessment and Plan: * Lipase on 08/30: 503 * Denies any abdominal pain * Abd CT: Small cystic masses in the pancreas which may represent focally dilated pancreatic duct. The differential diagnosis includes pseudocyst, intraductal papillary mucinous neoplasm (IPMN), mucinous cystic neoplasm (MCN), and the less common serous cystadenoma and neuroendocrine tumor. * Imagining not suggestive of pancreatitis (9) Acute hypokalemia: Code(s): E87.6 - Hypokalemia Status: Acute Assessment and Plan: * Upon admission, K 3.6 * After bolus of IVFs, K 3.1 * Given 40 meq oral supplementation * 09/02: K 3.6 * Continue to monitor daily labs (10) Cognitive dysfunction: Code(s): F09 - Unspecified mental disorder due to known physiological condition Status: Acute Assessment and Plan: * minimize any sedating medications * continue patient's home Requip at trazodone and Seroquel given her known history of bipolar depression (11) Hypothyroidism: Qualifiers: Hypothyroidism type: unspecified Qualified Code(s): E03.9 - Hypothyroidism, unspecified Code(s): E03.9 - Hypothyroidism, unspecified Status: Chronic Assessment and Plan: * continue levothyroxine * TSH 10.4, Free T4 1.3, Total T3 0.78 DS: Summary Hospital Course Reason for hospitalization: Diarrhea Hospital Course: Per HPI: 74-year-old female with a past medical history chronic kidney disease stage 4, hepatic steatosis, aortic stenosis, COPD, diastolic heart failure, hypothyroidism and obstructive sleep apnea and obesity who presented to the ER from home due to diarrhea and increased weakness. The patient reports that she has been on Mounjaro for about 6 weeks in attempt to lose weight. She reports that since she started on the medications she is not been interested in eating or drinking anything. She reports her last dose of monte RO was on Tuesday. When she took the medication on Tuesday she did have significant nausea with with multiple episodes of emesis on Tuesday night. But she denies any hematemesis or coffee-ground emesis. She does have a distant history of gastritis noted on EGD in 2021. She did not have any further emesis after Tuesday night. She has been having intermittent constipation. She had taken several doses of MiraLax. She then started having diarrhea on Tuesday and took a dose of Imodium. She reports that when she did have diarrhea it was dark in color. She had incontinence stool while she was in the shower. She denies any abdominal pain at the time of my evaluation. She denies epigastric pain on palp ation. She denies taking any Pepto-Bismol recently. She is on iron supplements. She has been having increasing dyspnea on exertion. She had outpatient echocardiogram with Dr. Lopez last week and was supposed to follow-up at the office today for results of her echo but was unable to go due to feeling bad. She reports that she cannot walk across the room without severe shortness of breath. She has become progressively weaker which she was attributing having no appetite and possibly due to her heart. She has been having some mild swelling of her left lower extremity but denies any right lower extremity swelling. She reports that her mouth is been extremely dry even more so than her chronic dry mouth. She denies any chest pain or palpitation she denies any orthopnea. The patient is not on any anticoagulants. Patient is having some difficulty with word finding and does have a listed history of cognitive dysfunction. I a suspect patient has early cognitive impairment and although she is alert oriented x3 is not the best historian. Hospital course: Cardiology was consulted regarding aortic valve disease. Patient does have a moderate mixed aortic valvular disease with moderate and moderate AI, along with severe mitral annular calcification with [id number]-folxdvqg MR. Cardiology would recommend obtaining a transesophageal echocardiogram at this time. This is obtained on 09/03 which showed calcified aortic valve, with severe aortic stenosis with a valve area 0.8 centimeters. Mild aortic regurgitation. Also showed mitral valve leaflets are sclerotic, posterior mitral valve leaflet is restricted and calcified, moderate mitral stenosis with an area of 1.3 cm2, dilated left atrium. Discussed this with Allie Romero of Cardiology who recommends the patient follow-up in the outpatient setting with cardiology for further possible monitoring. Nephrology was consulted regarding DIXIE superimposed on CKD with hyponatremia. Most likely hyponatremia due to hypovole ken[place] and use of hydrochlorothiazide. Patient is eating and drinking adequately and sodium steadily increased throughout hospitalization. She was initially placed on a fluid restriction and had sodium tablets ordered. By 09/03, sodium was 134, and kidney function continued to improve, creatinine down from 3.2 on admission to 1.55 on 09/03. Patient states that she is feeling much better today. PT/OT recommends continue therapy with home health. This has been [facility] with [facility]. Pt is otherwise stable for discharge at this time. Status at Discharge Functional status at discharge: uses cane/walker Overall status at discharge: patient is progressing back to baseline Time Spent with Patient Time attestation: Total time spent providing and/or coordinating discharge services: 31 Exam Narrative: Weight 86.3 kg BMI 34.8 Const: Other: Obese, no acute distress, appears older than stated age HENMT: Other: Mucous membranes are overtly dry, head is normocephalic atraumatic Eyes: Other: Pupils are equal and reactive, positive conjunctival pallor, no scleral icterus Neck: Other: No JVD, no lymphadenopathy Resp: Other: Clear to auscultation bilaterally, no increased work of breathing Cardio: Other: Irregularly irregular, rate controlled, 2+ bilateral radial pedal pulses, 2/6 systolic murmur GI: Other: Soft, nontender, nondistended, normoactive bowel sounds Skin: Other: Mild pallor, non jaundice Neuro: Other: Alert oriented x4, speech is clear, no facial asymmetry some mild difficulty with word finding, no localizing neurologic deficits noted during the course of conversation Extrem: Other: No edema in both extremities Psych: Other: Appropriate mood and affect, pleasant and cooperative DS: Data Data Completed and Pending Labs on day of discharge: Labs from last 24 hours 09/03/25 07:20 WBC 3.0 L RBC 4.24 Hgb 10.9 L Hct 33.6 L MCV 79.2 L MCH 25.7 L MCHC 32.4 RDW 13.4 Plt Count 215 MPV 8.6 Immature Gran % (Auto) 0.3 Neut % (Auto) 58.1 Lymph % (Auto) 23.7 [place] % (Auto) 16.6 H Eos % (Auto) 1.0 Baso % (Auto) 0.3 Lymph # (Auto) 0.70 L [place] # (Auto) 0.5 Eos # (Auto) 0.0 Baso # (Auto) 0.0 Abs Immat Gran (auto) 0.01 Absolute Neuts (auto) 1.7 Absolute Nucleated RBC 0.000 Nucleated RBC % 0.0 Sodium 134 L Potassium 3.2 L Chloride 98 Carbon Dioxide 29 Anion Gap 7 BUN 24 H Creatinine 1.55 H Estim Creat Clear Calc 30 Estimated GFR 33 L Glucose 95 Calcium 9.0 Total Bilirubin 0.4 AST 39 H ALT 17 Alkaline Phosphatase 78 Total Protein 6.4 Albumin 3.6 Discharge Plan Discharge Attending physician on discharge: Toni Gurrola Consulting providers: David Sampson; Sergio Smith; Wellington Nowak Discharging Clinician: David Sampson Anticipated Discharge Date/Time: 09/03/25 14:23 Patient Disposition: Home with Home Health Service Discharge Instructions: Per Care Coordination. Patient to have [facility] for RN/PT/OT eval and treat [phone]. RN please fax discharge instructions to [phone] Discharge disposition: Home with home health therapy Take medications as prescribed Monitor blood pressures Take caution while standing, rising, or moving Change positions slowly taking a break between each position change If you standing feel dizzy sit back down and take a break Encouraged to continue with yearly vaccinations Return to the emergency department if you develop sudden shortness of breath, chest pain, nausea, vomiting, upset stomach or intractable diarrhea Return to the emergency department if you develop fever greater than 101.5 Follow-up with the primary care physician within 1-2 weeks Follow up with Dr. Nowak of Cardiology for further assessment or monitoring of your severe aortic stenosis. Thank you for choosing [facility] for your healthcare needs Patient Instructions: Antibiotic Form Patient Language: Wolof Stand Alone Forms: General Discharge Information Follow-up/Referrals: Wellington Nowak MD [Physician, Cardiology] Adwoa Ordonez DO [Primary Care Provider, Family Practice] Discharge Medications: Continued quetiapine 100 mg tablet 150 mg PO HS 90 Days Qty: 135 3RF ropinirole 0.5 mg tablet 0.5 mg PO QHS Qty: 90 0RF Rx Instructions: Take with Ropinirole 1 mg at night to equal 1.5 mg nightly by mouth. lidocaine HCl [Aspercreme (lidocaine HCl)] 4 % cream 1 applic topical BID PRN (Reason: restless leg(s)) trazodone 100 mg tablet 200 mg PO QHS PRN (Reason: insomnia) Qty: 180 1RF tirzepatide 5 mg/0.5 mL pen injector 5 mg subcut WEEKLY Qty: 2 0RF Rx Instructions: for 4 weeks ferrous sulfate 325 mg (65 mg iron) tablet 325 mg PO DAILY Qty: 90 0RF tolterodine 2 mg capsule,extended release 24hr 2 mg PO DAILY Qty: 90 1RF rosuvastatin 10 mg tablet 10 mg PO DAILY Qty: 90 3RF aspirin 81 mg Tablet 81 mg PO DAILY Patient Comments: PT to hold [address] Dumont, pt to verify piroxicam 20 mg capsule 20 mg PO .4xweek PRN (Reason: Pain) Patient Comments: HOLDING A WEEK PRIOR pt stated levothyroxine [Unithroid] 100 mcg tablet 100 mcg PO DAILY Qty: 90 1RF losartan-hydrochlorothiazide 100-25 mg tablet 0.5 tablet PO DAILY Qty: 30 0RF liothyronine 5 mcg tablet See Rx Instructions .ROUTE .COMPLEX Qty: 90 1RF Dose Instruction: TAKE 1 TABLET BY MOUTH AT BEDTIME Rx Instructions: TAKE 1 TABLET BY MOUTH AT BEDTIME ropinirole 1 mg tablet 1 mg PO QHS Qty: 90 0RF timolol 0.5 % Drops 1 drp EACH EYE BID Date of admission: 08/31/25 17:50 Primary Care Provider: Adwoa Ordonez Admitting Provider: Jay Robertson Oca Attending physician on admission: Jay Robertson Oca Condition: Stable Quality VTE Prophylaxis VTE prophylaxis: mechanical ordered (SCDs)
[2025-09-05 15:09] LABS: Osmolality, Urine 292 mOsmol/kg (.)
[2025-09-06 23:08] LABS: Osmolality, Serum 272 mOsmol/kg (280-301)
== END 2025-09-03 16:00 | disposition home health service (06) | DRG 641 ==
LOC: ANHED 18:57 → ANH3MEDSUR 19:44
PROVIDERS: Internal Medicine; Internal Medicine Nephrology; Admitting Provider Student in an Organized Health Care Education/Training Program; Emergency Provider Student in an Organized Health Care Education/Training Program; PCP Family Medicine; Visit Provider Physician Assistant
PROC: B24BZZ4 Ultrasonography of Heart with Aorta, Transesophageal (ICD-10-PCS; CPT 93312; principal; 2025-09-03 10:45)
DX: E87.1 Hypo-osmolality and hyponatremia (principal); N17.9 Acute kidney failure, unspecified; K92.1 Melena; I38 Endocarditis, valve unspecified; I50.32 Chronic diastolic (congestive) heart failure; I31.39 Other pericardial effusion (noninflammatory); N18.4 Chronic kidney disease, stage 4 (severe); K52.1 Toxic gastroenteritis and colitis; T47.4X5A Adverse effect of other laxatives, initial encounter; E86.1 Hypovolemia; R19.7 Diarrhea, unspecified; G31.84 Mild cognitive impairment of uncertain or unknown etiology; E87.6 Hypokalemia; E86.0 Dehydration; R59.0 Localized enlarged lymph nodes; E03.9 Hypothyroidism, unspecified; K76.0 Fatty (change of) liver, not elsewhere classified; I35.0 Nonrheumatic aortic (valve) stenosis; J44.9 Chronic obstructive pulmonary disease, unspecified; G47.33 Obstructive sleep apnea (adult) (pediatric); E66.9 Obesity, unspecified; G25.81 Restless legs syndrome; E11.22 Type 2 diabetes mellitus with diabetic chronic kidney disease; I12.9 Hypertensive chronic kidney disease with stage 1 through stage 4 chronic kidney disease, or unspecified chronic kidney disease; K21.9 Gastro-esophageal reflux disease without esophagitis; E78.5 Hyperlipidemia, unspecified; F31.9 Bipolar disorder, unspecified; Z68.34 Body mass index [BMI] 34.0-34.9, adult; Z86.73 Personal history of transient ischemic attack (TIA), and cerebral infarction without residual deficits; Z90.49 Acquired absence of other specified parts of digestive tract; Z90.710 Acquired absence of both cervix and uterus; Z90.722 Acquired absence of ovaries, bilateral; Z96.1 Presence of intraocular lens; Z98.42 Cataract extraction status, left eye; Z98.41 Cataract extraction status, right eye
CPT/HCPCS: 36415; 71045; 71260; 74177; 80048; 80053; 80069; 81001; 82533; 82550; 82570; 82607; 82728; 82746; 83540; 83550; 83605; 83690; 83735; 83880; 83930; 83935; 84100; 84156; 84295; 84300; 84439; 84443; 84480; 84540; 85014; 85018; 85025; 85027; 85610; 85730; 87637; 93005; 93312; 93320; 93325; 96360; 97110; 97161; 97165; 97530; 97535; 99285; A9270; G0378; J7030; J7040; J7042; Q9967

== ENCOUNTER 2025-09-13 11:37 | Outpatient (CLI) | payer MEDICARE, OTHER, SELFPAY ==
--- OUTSIDE RECORDS SUMMARY | 2025-09-13 11:41 | XMS_ITS | Encounter Summary ---
Author Organization [facility] Address [address] [place] [address] Care Team Providers Care Foundry Manager Name Role Phone Amisha Monique MD Primary Care Provider [phone] Encounter Details Date Type Department Care Team (Late st Contact Info) Description 10/26/2022 Telephone [facility] SCHEDULING [address] [place] [address] Adriel Schwab MD [address] [place] [address] Social History Tobacco Use Types Packs/Day Years Used Date Smoking Tobacco: Never Smokeless Tobacco: Never Alcohol Use Standard Drinks/Week Comments No 0 (1 standard drink = 0.6 oz pur e alcohol) Comments No Sex and Gender Information Value Date Recorded Sex Assigned at Not on file Legal Sex Female 6:29 AM FISHING ROD TRIMMER Gender Identity Not on file Sexual Orientation Not on file documented as of this encounter Miscellaneous Notes * Telephone Encounter - Mikael Marroquin - 10/26/2022 11:39 AM CST Pt is upset over her bumped appt. Would like a sooner appt. Cannot come at 8 am because she watchesher grandson. Please contact patient. [phone]. ING ROD TRIMMER documented in this encounter Plan of Treatment Not on file documented as of this encounter Visit Diagnoses Not on filedocumented in this encounter Care Teams Foundry Manager Relationship Specialty Start Date End Date Amisha Monique MD [address] [place] [phone] PCP - General 04/14/18 documented as of this encounter
--- OUTSIDE RECORDS SUMMARY | 2025-09-13 11:41 | XMS_ITS | Clinical Summary ---
Author Organization [facility] Address [address] [place] [address] Care Team Providers Care Assistant Coach Name Role Phone Amisha Monique MD Primary Care Provider [phone] Castro Lopez MD Unavailable [phone] Judah Clark MD Unavailable Justin Wing MD Unavailable [phone] Allergies Active Allergy Reactions Criticality Noted Date [...] (06/01/2023): Added automatically from request for surgery [id number] Nausea and vomiting, unspecified vomiting type 0 06/01/2023 Overview (06/01/2023): Added automatically from request for surgery [id number] Irregular bowel habits 06/01/2023 Overview (06/01/2023): Added automatically from request for surgery [id number] Pain in joint of left shoulder 04/08/2023 [...] Influenza Adult (Generic) 08/13/2020,01/2019,07/15/2018,2016,07/29/2016,07/25/2016 MMR (MMRII) 03/23/2019 [facility] COVID-19 (ORIGINAL FORMULATION, PURPLE CAP) mRNA, LNP-S, [...] Hemoglobin A1C 08/08/2024 02/07/2024, 07/28/2022 PHQ-2 (Physician [place]) 10/24/2024 05/03/2024 COVID-19 Vaccine ( season) 2025 [...] Hand, RN Medical Devices Implanted Type Area Field Administrative Assistant Device Identifier Shelf Expiration Date Model / Serial / Lot Orthofix 70mm Rods Implanted:Qty: 2 on 10/04/2023 by Laisha Rutledge MD at [facility] Juan N/A: Spine Lumbar NEW AGE MEDICAL 52-6070 / / Orthofix Set Screw Implanted:Qty: 6 on 10/04/2023 by Laisha Rutledge MD at [facility] Screw N/A: Spine Lumbar NEW AGE MEDICAL 36-2000 / / Orthofix Top Loading Body Implanted:Qty: 6 on 10/04/2023 by Laisha Rutledge MD at [facility] Screw N/A: Spine Lumbar NEW AGE MEDICAL 36-2101 / / Orthofix 6.5x40mm Screw Implanted:Qty: 6 on 10/04/2023 by Laisha Rutledge MD at [facility] Screw N/A: Spine Lumbar NEW AGE [...] Health Maintenance Insurance MEDICARE [employer] Care Teams Assistant Coach Relationship Specialty Start Date End Date Amisha Monique MD [address] [place] [address] PCP - General FAMILY PRACTICE 02/04/22 Castro Lopez MD [address] [facility] [address] [place] [address] CARDIOVASCULAR DISEASE 08/23/23 Judah Clark MD [place] [address] [place] [address] Referring Physician VASCULAR SURGERY 08/23/23 Justin Wing MD 1 [facility] [address] [place] [address] GASTROENTEROLOGY 08/23/23
--- OUTSIDE RECORDS SUMMARY | 2025-09-13 11:41 | XMS_ITS | Clinical Summary ---
Author Organization [email or web address] Address [address] [place] [address] Care Team Providers Care Cash Applications Coordinator Name Role Phone Amisha Monique MD Primary Care Provider [phone] Source Comments [employer] [email or web address],non-owned Affiliates and Associated Physician Practices is amultiple site organization consisting of ambulatory clinics and hospital sitesin [place], [place], [place] and [place]. This disclosure is being madepursuant to the Care Everywhere program and may not contain all information available regarding this patient. Last updated 18.[email or web address] Medications * Be aware that medications may [...] on file Legal Sex Female 6:29 AM RELATIONSHIP MANAGEMENT LEAD Gender Identity Not on file Sexual Orientation Not on file Last Filed Vital Signs Vital Sign Reading Time Taken Comments Blood Pressure 132/77 09/08/2022 11:59 AM RELATIONSHIP MANAGEMENT LEAD 116/72 right arm Pulse 80 09/08/2022 11:59 AM RELATIONSHIP MANAGEMENT LEAD Temperature 36.3 C (97.3 F) 09/08/2022 11:59 AM RELATIONSHIP MANAGEMENT LEAD Respiratory Rate - - Oxygen Saturation 98% 09/08/2022 11: 59 AM RELATIONSHIP MANAGEMENT LEAD Inhaled Oxygen Concentration - - Weight 85.7 kg (189 lb) 09/08/2022 11:5 9 AM RELATIONSHIP MANAGEMENT LEAD Height 160 cm (5' 3) 09/08/2022 11:59 AM RELATIONSHIP MANAGEMENT LEAD Body Mass Index 33.48 09/08/2022 11:59 AM RELATIONSHIP MANAGEMENT LEAD Plan of Treatment Health Maintenance Due Date [...] age to complete this topic Insurance MEDICARE [facility] MEDICARE [facility] Care Teams Cash Applications Coordinator Relationship Specialty Start Date End Date Amisha Monique MD [address] [place] [address] JUSTIN Mark [phone] PCP - General 04/14/18
--- OUTSIDE RECORDS SUMMARY | 2025-09-13 11:41 | XMS_ITS | Encounter Summary ---
Author Organization [facility] Address Critical access hospital[address] [place] [address] Care Team Providers Care Meat Cutting Block Repairer Name Role Phone Amisha Monique MD Primary Care Provider [phone] Castro Lopez MD Unavailable [phone] Judah Clark MD Unavailable Justin Wing MD Unavailable [phone] Encounter Details Date Type Department Care Team (Late st Contact Info) Description 09/06/2023 Prep for Procedure [facility] Pre-Admission Testing [place] [id number] Laisha Rutledge MD [address] [facility] [address] [place], [place] [id number] Social History Tobacco Use Types Packs/Day Years [...] 6:45 AM Judith Araya RN Active * [place] Suicide Severity Rating Scale (Screener/Recent Self-Report) Question [...] of lower extremities with ulcer and inflammation ([facility]/HCC HHS/HCC) 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 [facility] [address] [place] [address] Referring Physician VASCULAR SURGERY 08/23/23 Justin Wing MD [address] [facility] [address] [place] [address] GASTROENTEROLOGY 08/23/23 documented as of this encounter
--- OUTSIDE RECORDS SUMMARY | 2025-09-13 11:41 | XMS_ITS | Encounter Summary ---
Author Organization [facility] Address [address] [facility] [address] [place] [address] Care Team Providers Care Stained Glass Glazier Helper Name Role Phone Amisha Monique MD Primary Care Provider + Rohan Ordonez CUTTER AND EDGE TRIMMER Primary Care Provider [phone] Ealine Parker CUTTER AND EDGE TRIMMER Primary Care Provider Adwoa Ordonez DO Primary Care Provider [phone] Encounter Details Date Type Department Care Team (Late st Contact Info) Description 11/26/2016 Orders Only [facility] Provider, MD Maryam [address] [place] [address] Social History Tobacco Use Types Packs/Day Years Used Date Smoking Tobacco: Never Assessed Comments Unknown Sex and Gender Information Value Date Recorded Sex Assigned at Not on file Legal Sex Female 12:56 PM LOSS CONTROL CONSULTANT Gender Identity Female 03/05/2022 12:13 PM CDT [...] on filedocumented in this encounter Care Teams Stained Glass Glazier Helper Relationship Specialty Start Date End Date Amisha Monique MD PCP - General 11/19/16 08/28/24 Rohan Ordonez NP [address] [place] [address] PCP - General Neurology 08/29/24 11/13/24 Elaine Parker NP [address] [address] PCP - General Nurse Practitioner 11/23/24 11/26/24 Adwoa Ordonez DO [address] [place] [address] PCP - General Family Medicine 11/27/24 documented as of this encounter
--- OUTSIDE RECORDS SUMMARY | 2025-09-13 11:41 | XMS_ITS | Clinical Summary ---
Author Organization [facility] [address] 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 Take 1 tablet (81 mg total) by mouth daily 07/17/20 19 Active rosuvastatin (CRESTOR) 20 mg tablet Take 1 tablet (20 mg total) by mouth 2 (two) times a week TAKE IN EVENING 3 08/17/20 19 Active blood glucose diagnostic (Accu-Chek Guide test [...] Active rOPINIRole (REQUIP) 0.25 mg tablet Take 6 tablets (1.5 mg total) by mouth nightly 10/09/20 21 Active QUEtiapine (SEROquel) 100 mg tablet Take 1.5 tablets (150 mg total) by mouth nightly 07/19/20 22 Active losartan-hydroch lorothiazide (HYZAAR) 100-25 mg per tablet Take 0.5 tablets by mouth daily Active traZODone (DESYREL) 50 mg tablet 4 tablets (200 mg total) nightly as needed Active lidocaine HCL 4 % cream Apply topically 06/18/20 25 Active FeroSuL 325 mg (65 mg iron) tablet Take 1 tablet (325 mg total) by mouth daily 08/19/20 25 Active hydroCHLOROthiaz annette (HYDRODIURIL) 25 mg tablet take 1 tablet by oral route every day 0 0 11/19/19 17 025 Discontinu ed(No longer taking - Do not display on AVS) losartan (COZAAR) 100 mg tablet take 1 tablet by oral route every day 0 0 11/19/19 17 025 Discontinu ed(No longer taking - Do not display on AVS) PARoxetine (PAXIL) 20 mg tablet Take 1 tablet (20 mg total) by mouth daily 11/03/19 21 025 Discontinu ed(No longer taking - Do not display on AVS) amLODIPine (NORVASC) 5 mg tablet Take 1 tablet (5 mg total) by mouth daily 09/20/20 22 025 Discontinu ed(No longer taking - Do not display on AVS) Mounjaro 2.5 mg/0.5 mL pen injector injection ADMINISTER 2.5 MG UNDER THE SKIN WEEKLY FOR 4 WEEKS 07/18/20 25 025 Discontinu ed(No longer taking - Do not display on AVS) tirzepatide (MOUNJARO) 5 mg/0.5 mL pen injector injection Inject 0.5 mL (5 mg total) under the skin once a week 025 Discontinu ed(No longer taking - Do not display on AVS) Active Problems Problem Noted Date Diagnosed Date IPMN (intraductal papillary mucinous neoplasm) 1 Balance problem 11/24/2022 Assessment & Plan (07/31/2025 2:59 PM CDT): Mrs. Vargas had a decline in her mobility in [...] to ask her to drive her to [place]. I explained that she could go to [...] controlled. Assessment & Plan (11/24/2022 7:09 PM CHIEF DEPUTY CORONER): She has balance problem of unclear etiology. [...] diagnosis. Assessment & Plan (11/24/2022 7:08 PM CHIEF DEPUTY CORONER): Technically she has parkinsonism stage 1 or [...] Encounters Date Type Department Care Team Description 09/09/2025 Telephone [facility] Cardiology [address] [place] [phone] Alvin Lopez MD 09/06/2025 9:30 AM CHIEF DEPUTY CORONER Office Visit [facility] Cardiology [address] [place] [phone] Darlene Gerard NP Nonrheumatic aortic valve stenosis (Primary Dx); Stage 3b chronic kidney disease (HCC); Low blood pressure reading; Hospital discharge follow-up; Need for lipid screening 09/05/2025 Telephone [facility] Cardiology [address] [place] [phone] Chula Lancaster MA Appointment Tomorrow 09/04/2025 Orders Only [facility] Cardiology [address] [place] [address] Wellington Nowak MD 09/03/2025 Orders Only [facility] Health Information Management [address] [place] [address] Allie Romero NP 09/03/2025 Telephone [facility] Cardiology [address] [facility] [address] [place] [phone] Alvin Lopez MD 08/28/2025 1:00 PM CHIEF DEPUTY CORONER Ancillary Procedure [facility] Cardiology at [address] [place] [phone] Dyspnea on exertion 08/22/2025 Telephone [facility] Cardiology [address] [facility] [address] [place] [phone] Alvin Lopez MD 08/15/2025 10:40 AM CDT Office Visit [facility] Medicine Gastroenterology [address] [facility] [address] [place] [address] [place] [address] Justin Wing MD Steatohepatitis, non-alcoholic (Primary Dx); IPMN (intraductal papillary mucinous neoplasm) 08/13/2025 Documentation [facility] Medicine Movement Disorders [facility] [address] [place] [address] Reba Madsen CMA 07/31/2025 11:00 AM CDT Office Visit [facility] Movement Disorders [address] [facility] 7th [place] [address] Karly Echevarria NP Unspecified abnormalities of gait and mobility (Primary Dx); Abnormal gait; Balance problem 06/21/2025 Telephone [facility] Medicine Scheduling [address] [place] [address] Howard Carrero MD PhD Scheduling Appointments 06/13/2025 Telephone [facility] Medicine Scheduling [address] [place] [address] Radha Alcaraz, [facility] Scheduling Appointments from Last 3 Months Surgical [...] History Relation Name Comments Lung cancer Father Daldarlene Parkinsonism Father Daldarlene Parkinson's dis ease; Stroke Father Dalec Parkinsonism Mother Keren Stroke Mother Keren Stroke; Breast cancer Mother's Sister Breast cancer Paternal Grandmother Relation Name Status Comments Father Dalec (Age 89) Mother Keren (Age 88) Mother's [...] on file Legal Sex Female 12:56 PM CHIEF DEPUTY CORONER Gender Identity Female 03/05/2022 12:13 PM CDT Sexual Orientation Not on file Last Filed Vital Signs Vital Sign Reading Time Taken Comments Blood Pressure 90/50 09/06/2025 9:34 AM CHIEF DEPUTY CORONER Pulse 87 09/06/2025 9:34 AM CHIEF DEPUTY CORONER Temperature 36.8 C (98.2 F) 08/15/2025 10:36 AM CDT Respiratory Rate - - Oxygen Saturation 94% 09/06/2025 9:34 AM CHIEF DEPUTY CORONER Inhaled Oxygen Concentration - - Weight 83.6 kg (184 lb 3.2 oz) 09/06/2025 9:34 A M CHIEF DEPUTY CORONER Height 154.9 cm (5' 1) 09/06/2025 9:34 AM CHIEF DEPUTY CORONER Body Mass Index 34.8 09/06/2025 9:34 AM CHIEF DEPUTY CORONER Plan of Treatment Health Maintenance Due Date Last Done Comments Albumin Creatinine Ratio, Urine 1950 Colon Cancer Screening-Colonoscopy 1950 Fall Risk Assessment 1950 Hemoglobin A1C 1950 Hepatitis C Screening 1950 Osteoporosis Screening-Bone Density Scan 1950 Dilated Eye Exam 1950 Foot Exam 1950 Hepatitis B Screening 1969 Well Visit 65+ 2016 Breast Cancer Screening-Mammogram 04/08/2021 020 Depression Screening 05/09/2025 05/09/2024 eGFR 09/06/2025 09/06/2024, 1002/2023, 07/16/2021 Lipid Panel 09/06/2026 09/06/2025, 04/23, 11/12/2021, Additional history exists DTaP/Tdap/Td Vaccine (3 - Td or Tdap) 12/19/2034 12/19/2024, 10/09/2016 Pneumococcal vaccine 65+ Completed 018, 01/04/2017, 09/10/2015 Zoster Vaccine Completed 09/07/2021, 07/08/2021 Influenza Vaccine Completed 08/07/2025, , 07/20/2022, Additional history exists Procedures Procedure Name Priority Date/Time Associated Diagnosis Comments POCT LIPID PANEL Routine 09/06/2025 11:2 9 AM CHIEF DEPUTY CORONER Need for lipid screening CARDIOLOGY DOCUMENT SCAN Routine 09/03/2025 3:15 PM CHIEF DEPUTY CORONER CARDIOLOGY DOCUMENT SCAN 09/03/2025 CARDIOLOGY DOCUMENT SCAN Routine 09/01/2025 3:12 PM CHIEF DEPUTY CORONER CARDIOLOGY DOCUMENT SCAN Routine 08/31/2025 3:06 PM CHIEF DEPUTY CORONER TRANSTHORACIC ECHO (TTE) COMPLETE W DOPPLER/CF WO CONTRAST Routine 08/28/2025 1:39 PM CHIEF DEPUTY CORONER Dyspnea on exertion EGFR Routine 09/06/2024 2:12 PM CHIEF DEPUTY CORONER Steatohepatitis, non-alcoholic DIAGNOSTIC MAMMOGRAM BILATERAL W BIB Schedule Routine, Read Routine (OP Routine) 04/08/2020 12:13 PM CDT Abnormal mammogram from Last 3 Months or Most Recently Relevant to Health Maintenance Results * (ABNORMAL) POCT lipid panel (09/06/2025 11:29 AM CHIEF DEPUTY CORONER) Cholesterol, POC 130 <200 MG/DL HDL, POC 31(A) >=40 mg/dL Triglycerides, POC 297(A) <=149 mg/dL LDL Cholesterol POC 40 <=129 mg/dL Chol/HDL Ratio, POC 1.3 NONE Non-HDL Cholesterol, POC 99 NONE mg/dL Cholesterol Total, POC 130 30 - 199 mg/dL Capillary blood 09/06/2025 1 1:29 AM CHIEF DEPUTY CORONER Darlene Gerard NP POINT OF CARE TEST ORDERA BLES Final Result * Cardiology Document Scan (09/03/2025 3:15 PM CHIEF DEPUTY CORONER) Anatomical Region Laterality Modality Other Chris Lunsford MD CV CARDIAC SERVICES PROCEDURES F inal Result * Cardiology Document Scan (09/03/2025) Anatomical Region Laterality Modality Other Allie Romero NP CV CARDIAC SERVICES PROCEDUR ES Edited Result - Final * Cardiology Document Scan (09/01/2025 3:12 PM CHIEF DEPUTY CORONER) Anatomical Region Laterality Modality Other Wellington Nowak MD CV CARDIAC SERVICES PROCE DURES Final Result * Cardiology Document Scan (08/31/2025 3:06 PM CHIEF DEPUTY CORONER) Anatomical Region Laterality Modality Other Wellington Nowak MD CV CARDIAC SERVICES PROCE DURES Final Result * TRANSTHORACIC ECHO (TTE) COMPLETE W DOPPLER/CF WO CONTRAST (08/28/2025 1:39 PM CHIEF DEPUTY CORONER) Estimated EF 70-75 % CONS SCIMAGE EF Mod BP 52 % CONS SCIMAGE Anatomical Region Laterality Modality Ultrasound 08/28/2025 12:5 1 PM CHIEF DEPUTY CORONER Narrative 08/28/2025 3:11 PM CHIEF DEPUTY CORONER [facility] Cardiology [address], [address], [place] [address] P:[phone] P:[phone] Echocardiographic Report Patient Name: SAL VARGAS L : 1950 Study Date: 08/28/2025 12:51:15 PM Sex: F Enterprise Resource Analyst: RAMON Location: [facility] Ref Provider: ALVIN LOPEZ [...] FINDINGS: Interpretation Site: Exam was interpreted at [facility]. Left Ventricle: Normal left ventricular systolic function. [...] By: Wellington Nowak MD 08/28/2025 3:10:21 PM CHIEF DEPUTY CORONER Procedure Note Wellington Nowak MD - 08/28/2025 [facility] Cardiology [address] [facility], [address], [place] [address] P:[phone] P:[phone] Echocardiographic Report Patient Name: SAL VARGAS L : 1950 Study Date: 08/28/2025 12:51:15 PM Sex: F Enterprise Resource Analyst: RAMON Location: [facility] Ref Provider: ALVIN LOPEZ [...] FINDINGS: Interpretation Site: Exam was interpreted at [facility]. Left Ventricle: Normal left ventricular systolic function. [...] By: Wellington Nowak MD 08/28/2025 3:10:21 PM CHIEF DEPUTY CORONER us Alvin Lopez MD CV ECHO PROCEDURES Final Result * (ABNORMAL) eGFR (09/06/2024 2:12 PM CHIEF DEPUTY CORONER) eGFR 39(L) >=60 mL/min/1. 73 m2 Comment: [...] last reviewed 2021. Blood 09/06/2024 2:12 PM CHIEF DEPUTY CORONER 09/06/2024 2:29 PM CHIEF DEPUTY CORONER us Justin Wing MD LAB BLOOD ORDERABLES Final Result KENNETH GARCIA [facility] Department [place] [address] * Diagnostic Mammogram Bilateral W Bib (04/08/2020 [...] Recently Relevant to Health Maintenance Insurance MEDICARE [facility] EM[facility] [employer] LIFE MEDICARE FOR LIFE Care Teams Ward Attendant Relationship Specialty Start Date End Date Adwoa Ordonez DO [address] [place] [address] PCP - General Family Medicine 11/27/24
--- OUTSIDE RECORDS SUMMARY | 2025-09-13 11:41 | XMS_ITS | Encounter Summary ---
Author Organization [facility] Address [address] [place] [address] Care Team Providers Care Sales And Marketing Administrator Name Role Phone Adwoa Ordonez Primary Care Provider [phone] Encounter Details Date Type Department Care Team (Late st Contact Info) Description 09/09/2025 Telephone [facility] Cardiology [address] [facility] [address] [place] [address] Castro Lopez MD [address] [place], [place] [id number] Social History Tobacco Use Types Packs/Day Years Used Date Smoking Tobacco: Never Smokeless Tobacco: Never Alcohol Use Standard Drinks/Week Comments No 0 (1 standard drink = 0.6 oz pur e alcohol) Comments No Sex and Gender Information Value Date Recorded Sex Assigned at Not on file Legal Sex Female 12:56 PM POKER MACHINE ATTENDANT Gender Identity Female 03/05/2022 12:13 PM CDT Sexual Orientation Not on file documented as of this encounter Miscellaneous Notes * Telephone Encounter - Shavon Ace RN - 09/10/2025 9:52 AM POKER MACHINE ATTENDANT LM for patient reviewing the above message. Instructed her to call with additional concerns R MACHINE ATTENDANT * Telephone Encounter - Darlene Gerard NP - 09/10/2025 8:39 AM POKER MACHINE ATTENDANT These blood pressure readings are very good. Continue half tablet of losartan/HCTZ 100 mg/25 mg. Await phone call from [facility] regarding referral for the valve clinic. Thank you. I am so sorry to hear about her son. R MACHINE ATTENDANT * Telephone Encounter - Namita Braxton - 09/10/2025 8:34 AM CST Patient called in for an update. Please advise. Thank you. Contact : [phone] R MACHINE ATTENDANT * Telephone Encounter - Letha Fatima - 09/09/2025 11:06 AM CST Pt calling to report BP readings. Pt states her son is dying so she has been stressed out which is why her BP has been elevated. 09/07- 120/66, 137/66 09/08- 143/72, 140/72 Contact: R MACHINE ATTENDANT documented in this encounter Plan of Treatment Not on file documented as of this encounter Visit Diagnoses Not on filedocumented in this encounter Care Teams Sales And Marketing Administrator Relationship Specialty Start Date End Date Adwoa Ordonez DO [address] [facility] [address] PCP - General Family Medicine 11/27/24 documented as of this encounter
--- OUTSIDE RECORDS SUMMARY | 2025-09-13 11:41 | XMS_ITS | Encounter Summary ---
Author Organization [facility] Address [address] [facility] [address] [place] [address] Care Team Providers Care Mediator Name Role Phone Amisha Monique MD Primary Care Provider + Rohan Ordonez SCREENPLAY WRITER Primary Care Provider [phone] Elaine Parker SCREENPLAY WRITER Primary Care Provider Adwoa Ordonez DO Primary Care Provider [phone] Encounter Details Date Type Department Care Team (Late st Contact Info) Description 11/19/2016 Orders Only [facility] Provider, MD Maryam [address] [place] [address] Social History Tobacco Use Types Packs/Day Years Used Date Smoking Tobacco: Never Assessed Comments Unknown Sex and Gender Information Value Date Recorded Sex Assigned at Not on file Legal Sex Female 12:56 PM WIRE SAW OPERATOR Gender Identity Female 03/05/2022 12:13 PM [...] on filedocumented in this encounter Care Teams Mediator Relationship Specialty Start Date End Date Amisha Monique MD PCP - General 11/19/16 08/28/24 Rohan Ordonez NP [address] [place] [address] PCP - General Neurology 08/29/24 11/13/24 Elaine Parker NP [address] [place] [address] PCP - General Nurse Practitioner 11/23/24 11/26/24 Adwoa Ordonez DO [address] [place] [address] PCP - General Family Medicine 11/27/24 documented as of this encounter
--- OUTSIDE RECORDS SUMMARY | 2025-09-13 11:41 | XMS_ITS | Encounter Summary ---
Author Organization [facility] Address [address] [facility] [address] [place] [address] Care Team Providers Care Cook'S Assistant Name Role Phone Amisha Monique MD Primary Care Provider + Rohan Ordonez SUPERVISOR BAKING Primary Care Provider [phone] Elaine Parker SUPERVISOR BAKING Primary Care Provider Adwoa Ordonez DO Primary Care Provider Encounter Details Date Type Department Care Team (Late st Contact Info) Description 10/09/2007 Orders Only [facility] Provider, MD Maryam [address] [place] [address] Social History Tobacco Use Types Packs/Day Years Used Date Smoking Tobacco: Never Assessed Comments Unknown Sex and Gender Information Value Date Recorded Sex Assigned at Not on file Legal Sex Female 12:56 PM HEALTH SERVICES COORDINATOR Gender Identity Female 03/05/2022 12:13 PM CDT [...] on filedocumented in this encounter Care Teams Cook'S Assistant Relationship Specialty Start Date End Date Amisha Monique MD PCP - General 11/19/16 08/28/24 Rohan Ordonez NP [address] [place] [address] PCP - General Neurology 08/29/24 11/13/24 Elaine Parker NP [address] [place] [address] PCP - General Nurse Practitioner 11/23/24 11/26/24 Adwoa Ordonez DO [address] [place] [address] PCP - General Family Medicine 11/27/24 documented as of this encounter
[2025-09-13 13:18] LABS: Alanine Aminotransferase 25 U/L (6-35); Albumin Level 4.1 g/dL (3.5-5.1); Alkaline Phosphatase 74 U/L (38-126); Anion Gap 10 mmol/L (4-12); Aspartate Amino Transferase 44 U/L (14-36); Bilirubin,Total 0.7 mg/dL (0.2-1.3); Blood Urea Nitrogen 14 mg/dL (7-17); Calcium 9.2 mg/dL (8.4-10.2); Carbon Dioxide 28 mmol/L (22-30); Chloride 90 mmol/L (98-107); Estimated Glomerular Filt Rate 38; Glucose 115 mg/dL (65-110); Potassium 2.8 mmol/L (3.4-5.0); Sodium 128 mmol/L (137-145); Total Protein 7.1 g/dL (6.3-8.2)
== END 2025-09-13 11:38 | disposition home or self-care (01) ==
LOC: ANHLAB 11:39
PROVIDERS: PCP Family Medicine; Visit Provider Family Medicine
DX: I12.9 Hypertensive chronic kidney disease with stage 1 through stage 4 chronic kidney disease, or unspecified chronic kidney disease (principal); N18.9 Chronic kidney disease, unspecified
CPT/HCPCS: 36415; 80053

== ENCOUNTER 2025-09-16 12:07 | Emergency (ER) | payer MEDICARE, OTHER, SELFPAY ==
[2025-09-16 12:11] VITALS: BP 149/47; PULSE 69; RESP 16; TEMP 36.4; O2SAT 100
--- NOTE | 2025-09-16 13:08 | ECG_ITS ---
Test Date: 2025-09-16 13:35:39 Measurements Intervals [place] Rate: 65 P: 37 ME: 254 QRS: -35 QRSD: 116 T: 62 QT: 437 QTc: 456 Interpretive Statements SINUS RHYTHM WITH FIRST DEGREE AV BLOCK POSSIBLE LEFT ATRIAL ENLARGEMENT [-0.1mV P WAVE IN V1/V2] MARKED LEFT AXIS DEVIATION [QRS AXIS < -30] ANTEROSEPTAL MYOCARDIAL INFARCTION [40+ ms Q WAVE IN V1-V4], OF INDETERMINATE AGE ABNORMAL ECG Electronically Signed On 09-16-2025 14:00:08 PREPRESS MANAGER by Wellington Nowak M.D.
--- NOTE | 2025-09-16 13:08 | ED.RECABL ---
HPI - Recheck/Abnormal Lab/Rx General Chief Complaint: Recheck/Abnormal Lab/Rx <Shanna Lucia PA-C - Last Filed: 09/16/25 18:55> Stated Complaint: hypokalemia <Shanna Lucia PA-C - Last Filed: 09/16/25 18:55> Time Seen by Provider: 09/16/25 13:08 <Shanna Lucia PA-C - Last Filed: 09/16/25 18:55> Focused HPI: This is a 74 year old female that presents to the ER for abnormal outpatient blood work. Reports she was told that her potassium was low on blood work obtained a couple days ago. She was told to come to the ER for replacement. No notable symptoms. She does take HCTZ. GENERAL: Well-appearing, well-nourished, and in no acute distress. HEAD: Normocephalic, atraumatic. CHEST: No respiratory distress. HEART: Regular rate NEURO: ?Alert and oriented x3. Patient screened in triage and initial orders placed.? ?Additional care and disposition to be based upon?diagnostic testing and treatment. <Shanna Lucia PA-C - Last Filed: 09/16/25 18:55> History of Present Illness HPI narrative: Agree with HPI. Recurrent low potassium. Recently had low potassium while she is having diarrhea. Patient does report generalized weakness and fatigue but no significant increased recently. <Jensen Cortez MD - Last Filed: 09/16/25 18:54> Related Data Home Medications: Home Medications ?Medication ?Instructions ?Recorded ?Confirmed ?Last Taken ?Type aspirin 81 mg tablet 81 mg PO DAILY 09/01/20 09/04/25 08/30/25 09:00 History 81 mg timolol 0.5 % eye drops 1 drp EACH EYE BID 10/08/23 09/04/25 08/29/25 21:00 History 1 drp piroxicam 20 mg capsule 20 mg PO .4xweek PRN Pain 02/12/25 09/04/25 Unknown History lidocaine HCl 4 % topical cream 1 applic topical BID PRN restless 06/18/25 09/04/25 08/30/25 09:00 History (Aspercreme (lidocaine HCl)) leg(s) 1 applic <Shanna Lucia PA-C - Last Filed: 09/16/25 18:55> Allergies/Adverse Reactions: Allergies Allergy/AdvReac Type Severity Reaction Status Date / Time cat dander Allergy Intermediate Congested Verified 09/04/25 14:56 <Shanna Lucia PA-C - Last Filed: 09/16/25 18:55> Review of Systems Review of Systems: All systems reviewed & are unremarkable except as noted in HPI and below <Jensen Cortez MD - Last Filed: 09/16/25 18:54> Constitutional: Constitutional: Reports no additional constitutional complaints <Jensen Cortez MD - Last Filed: 09/16/25 18:54> Cardiovascular: Cardiovascular: Reports no additional cardiovascular complaints <Jensen Cortez MD - Last Filed: 09/16/25 18:54> Respiratory: Respiratory: Reports no additional respiratory complaints <Jensen Cortez MD - Last Filed: 09/16/25 18:54> Gastrointestinal: Gastrointestinal: Reports no additional gastrointestinal complaints <Jensen Cortez MD - Last Filed: 09/16/25 18:54> [facility] Past Medical History Medical History: Medical History Mobitz type 1 second degree AV block Pulmonary hypertension Mitral valve disease Aortic valve disease Osteoporosis DEXA scan May 2023 History of CVA (cerebrovascular accident) 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 noted on MRI April 2022 Bilateral carotid artery stenosis CKD (chronic kidney disease) stage 4, GFR 15-29 ml/min With baseline creatinine between 1.4-1.7 Eczema Dry eye Optic nerve drusen BPPV (benign paroxysmal positional vertigo) Restless leg syndrome Cognitive dysfunction Overactive bladder Lumbar stenosis 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 Spondylolisthesis at L4-L5 level Asthma TMJ (temporomandibular joint disorder) Hearing loss, bilateral Pancreatic cyst Irritable bowel syndrome with both constipation and diarrhea Depression Obstructive sleep apnea Diastolic congestive heart failure Aortic stenosis Steatohepatitis Hyperlipidemia Hypothyroidism <Shanna Lucia PA-C - Last Filed: 09/16/25 18:55> Surgical History Surgical History: Surgical History History of nasal septoplasty History of hand surgery (~2003) Removal of mass from right finger Status post cataract extraction of both eyes with insertion of intraocular lens (2016) History of total abdominal hysterectomy and bilateral salpingo-oophorectomy (1988) Status post laser ablation of incompetent vein Right leg 2005 left leg 2017 History of back surgery Status post insertion of spinal cord stimulator (11/07/24) H/O colonoscopy History of cholecystectomy Hx of tonsillectomy (1955) <Shanna Lucia PA-C - Last Filed: 09/16/25 18:55> Family History Family History: Family History Father Diabetes mellitus Family history of lung cancer Lung cancer Hypertension Cerebrovascular accident Asthma Mother Diabetes mellitus Family history of irritable bowel syndrome Asthma Parkinson disease Other Family history of arthritis Family history of cardiovascular disease Family history of congestive heart failure Family history of hearing loss <Shanna Lucia PA-C - Last Filed: 09/16/25 18:55> Social History Social History: Social History Social History: She lives in her own home with her of 51 years. They are raising their 13-year-old grandson. They have a son who has intellectual disability. They have a daughter who has a history of drug abuse but is currently in remission and recently had a another son who is a month old. She is a lifelong nonsmoker and does not drink or use illicit substances. She still drives. Code status: Full code (she does not Wanna be on long-term ventilator/tracheostomy or have a feeding tube) Surrogate decision maker: Smoking status: Never smoker Second hand tobacco smoke exposure: Yes Alcohol intake: never Substance use: never Substance use type: does not use Other substance usage details: reports using prescription medication as MD orders only Last use: last ETOH use when pt was in early 30's Do You Feel Safe in your Home?: Yes Lack of Transportation: No Lack of Food: Never True Current Housing: I Have Housing Concerned About Future Housing: No Difficulty Paying Gas/Electric Bills: No Difficulty Paying for Meds: No Currently Unemployed: No Education: High School Diploma/GED Difficulty w/ Childcare or Family Care: YES Living arrangements: with family Additional living arrangements comments: Gender identity (if verbalized by the patient): Female Spiritual care concerns: No <Shanna Lucia PA-C - Last Filed: 09/16/25 18:55> Exam Narrative: GENERAL: Well-appearing, well-nourished, and in no acute distress. HEAD: Normocephalic, atraumatic. ENT: Mucous membranes moist. CHEST: Clear to auscultation. No respiratory distress. HEART: Regular rate and rhythm. Normal peripheral pulses. ABDOMEN: Soft, nontender, nondistended. EXTREMITIES: Normal range of motion. No edema. SKIN: Warm, dry, no rash. NEURO: Alert and oriented x3. PSYCH: Normal mood and affect. <Jensen Cortez MD - Last Filed: 09/16/25 18:54> Course Course Emergency Course: Patient resting comfortably. Has taken potassium replacement both p.o. and IV. Potassium trending upwards. Discussed that she should discontinue her HCTZ which is in her losartan medication as well. She should follow-up with her PCP and continue take potassium supplementation at home. <Jensen Cortez MD - Last Filed: 09/16/25 18:54> Vital Signs Vital signs: Vital Signs Temperature 97.6 F 09/16/25 12:11 Pulse Rate 69 09/16/25 12:11 Respiratory Rate 16 09/16/25 12:11 Blood Pressure 149/47 H 09/16/25 12:11 Pulse Oximetry 100 09/16/25 12:11 Oxygen Delivery Room Air 09/16/25 12:11 Temperature 97.6 F 09/16/25 12:11 Pulse Rate 72 09/16/25 16:19 Respiratory Rate 14 09/16/25 16:19 Blood Pressure 180/64 H 09/16/25 16:19 Pulse Oximetry 99 09/16/25 16:19 Oxygen Delivery Room Air 09/16/25 12:11 <Shanna Lucia PA-C - Last Filed: 09/16/25 18:55> Vital Signs Temperature 97.6 F 09/16/25 12:11 Pulse Rate 69 09/16/25 12:11 Respiratory Rate 16 09/16/25 12:11 Blood Pressure 149/47 H 09/16/25 12:11 Pulse Oximetry 100 09/16/25 12:11 Oxygen Delivery Room Air 09/16/25 12:11 Temperature 97.6 F 09/16/25 12:11 Pulse Rate 72 09/16/25 16:19 Respiratory Rate 14 09/16/25 16:19 Blood Pressure 180/64 H 09/16/25 16:19 Pulse Oximetry 99 09/16/25 16:19 Oxygen Delivery Room Air 09/16/25 12:11 <Jensen Cortez MD - Last Filed: 09/16/25 18:54> MDM - Recheck/Abnormal Lab/Rx Lab Data Attestation: I reviewed the patient's lab results. <Jensen Cortez MD - Last Filed: 09/16/25 18:54> Result diagrams: 09/16/25 13:37 09/16/25 17:21 <Shanna Lucia PA-C - Last Filed: 09/16/25 18:55> Labs: Lab Results 09/16/25 09/16/25 Range/Units 13:37 17:21 WBC 5.1 (4.5-10.0) K/mm3 RBC 4.51 (4.2-5.4) M/mm3 Hgb 11.5 L (12.0-15.0) g/dL Hct 35.9 L (37.0-47.0) % MCV 79.6 L (80-100) fl MCH 25.5 L (26-34) pg MCHC 32.0 (32-36) g/dl RDW 13.7 (11.5-14.5) % Plt Count 225 (150-375) k/mm3 MPV 9.1 (7.4-10.4) fl Immature Gran % (Auto) 0.2 (0-0.5) % Neut % (Auto) 73.2 H (45.5-73.1) % Lymph % (Auto) 12.2 L (18.3-44.2) % [place] % (Auto) 13.6 H (2.6-8.5) % Eos % (Auto) 0.4 (0-4.4) % Baso % (Auto) 0.4 (0.2-1.2) % Lymph # (Auto) 0.62 L (0.9-3.2) K/mm3 [place] # (Auto) 0.7 H (0.1-0.6) K/mm3 Eos # (Auto) 0.0 (0-0.3) K/mm3 Baso # (Auto) 0.0 (0.0-0.1) K/mm3 Abs Immat Gran (auto) 0.01 (0.00-0.031) K/mm3 Absolute Neuts (auto) 3.7 (1.3-6.7) K/mm3 Absolute Nucleated RBC 0.000 (0.0-0.012) K/mm3 Nucleated RBC % 0.0 (0.0-0.2) % Sodium 128 L 125 L (137-145) mmol/L Potassium 2.6 L* 2.9 L (3.4-5.0) mmol/L Chloride 90 L 90 L (98-107) mmol/L Carbon Dioxide 28 29 (22-30) mmol/L Anion Gap 10 6 (4-12) mmol/L BUN 15 14 (7-17) mg/dL Creatinine 1.21 H 1.20 H (0.7-1.0) mg/dL Estim Creat Clear Calc 37 37 ml/min Estimated GFR 44 L 44 L (59 - ) Glucose 121 H 109 (65-110) mg/dL Calcium 9.4 9.0 (8.4-10.2) mg/dL Magnesium 1.8 (1.6-2.3) mg/dL Total Bilirubin 0.5 (0.2-1.3) mg/dL AST 40 H (14-36) U/L ALT 22 (6-35) U/L Alkaline Phosphatase 76 (38-126) U/L Total Protein 7.2 (6.3-8.2) g/dL Albumin 4.2 (3.5-5.1) g/dL <Shanna Lucia PA-C - Last Filed: 09/16/25 18:55> Lab Results 09/16/25 09/16/25 Range/Units 13:37 17:21 WBC 5.1 (4.5-10.0) K/mm3 RBC 4.51 (4.2-5.4) M/mm3 Hgb 11.5 L (12.0-15.0) g/dL Hct 35.9 L (37.0-47.0) % MCV 79.6 L (80-100) fl MCH 25.5 L (26-34) pg MCHC 32.0 (32-36) g/dl RDW 13.7 (11.5-14.5) % Plt Count 225 (150-375) k/mm3 MPV 9.1 (7.4-10.4) fl Immature Gran % (Auto) 0.2 (0-0.5) % Neut % (Auto) 73.2 H (45.5-73.1) % Lymph % (Auto) 12.2 L (18.3-44.2) % [place] % (Auto) 13.6 H (2.6-8.5) % Eos % (Auto) 0.4 (0-4.4) % Baso % (Auto) 0.4 (0.2-1.2) % Lymph # (Auto) 0.62 L (0.9-3.2) K/mm3 [place] # (Auto) 0.7 H (0.1-0.6) K/mm3 Eos # (Auto) 0.0 (0-0.3) K/mm3 Baso # (Auto) 0.0 (0.0-0.1) K/mm3 Abs Immat Gran (auto) 0.01 (0.00-0.031) K/mm3 Absolute Neuts (auto) 3.7 (1.3-6.7) K/mm3 Absolute Nucleated RBC 0.000 (0.0-0.012) K/mm3 Nucleated RBC % 0.0 (0.0-0.2) % Sodium 128 L 125 L (137-145) mmol/L Potassium 2.6 L* 2.9 L (3.4-5.0) mmol/L Chloride 90 L 90 L (98-107) mmol/L Carbon Dioxide 28 29 (22-30) mmol/L Anion Gap 10 6 (4-12) mmol/L BUN 15 14 (7-17) mg/dL Creatinine 1.21 H 1.20 H (0.7-1.0) mg/dL Estim Creat Clear Calc 37 37 ml/min Estimated GFR 44 L 44 L (59 - ) Glucose 121 H 109 (65-110) mg/dL Calcium 9.4 9.0 (8.4-10.2) mg/dL Magnesium 1.8 (1.6-2.3) mg/dL Total Bilirubin 0.5 (0.2-1.3) mg/dL AST 40 H (14-36) U/L ALT 22 (6-35) U/L Alkaline Phosphatase 76 (38-126) U/L Total Protein 7.2 (6.3-8.2) g/dL Albumin 4.2 (3.5-5.1) g/dL <Jensen Cortez MD - Last Filed: 09/16/25 18:54> ECG Data EKG #1: ECG completion date: 09/16/25 <Jensen Cortez MD - Last Filed: 09/16/25 18:54> ECG completion time: 13:35 <Jensen Cortez MD - Last Filed: 09/16/25 18:54> EKG Interpretation: normal rate (65), sinus rhythm, non-specific ST changes and no ST changes <Jensen Cortez MD - Last Filed: 09/16/25 18:54> Discharge Plan Discharge Clinical Impression: Hypokalemia <Shanna Lucia PA-C - Last Filed: 09/16/25 18:55> Patient Disposition: Home <Shanna Lucia PA-C - Last Filed: 09/16/25 18:55> Condition: Stable <Shanna Lucia PA-C - Last Filed: 09/16/25 18:55> Instructions: Hypokalemia (ED) <Shanna Lucia PA-C - Last Filed: 09/16/25 18:55> Additional Instructions: Stop taking your hydrochlorothiazide and follow up with her primary care doctor. Take a potassium supplement for the short term. Return the ER if you have additional concerns. <Shanna Lucia PA-C - Last Filed: 09/16/25 18:55> Patient Language: Thai <TERENCE Keith Last Filed: 09/16/25 18:55> Prescriptions: New potassium chloride [K-Tab] 20 mEq tablet extended release 20 meq PO BID Qty: 7 0RF Discontinued losartan-hydrochlorothiazide 100-25 mg tablet 0.5 tablet PO DAILY Qty: 30 3RF No Action quetiapine 100 mg tablet 150 mg PO HS 90 Days Qty: 135 3RF ropinirole 0.5 mg tablet 0.5 mg PO QHS Qty: 90 0RF Rx Instructions: Take with Ropinirole 1 mg at night to equal 1.5 mg nightly by mouth. lidocaine HCl [Aspercreme (lidocaine HCl)] 4 % cream 1 applic topical BID PRN (Reason: restless leg(s)) trazodone 100 mg tablet 200 mg PO QHS PRN (Reason: insomnia) Qty: 180 1RF ferrous sulfate 325 mg (65 mg iron) tablet 325 mg PO DAILY Qty: 90 0RF tolterodine 2 mg capsule,extended release 24hr 2 mg PO DAILY Qty: 90 1RF rosuvastatin 10 mg tablet 10 mg PO DAILY Qty: 90 3RF aspirin 81 mg Tablet 81 mg PO DAILY Patient Comments: PT to hold [address] Dumont, pt to verify piroxicam 20 mg capsule 20 mg PO .4xweek PRN (Reason: Pain) Patient Comments: HOLDING A WEEK PRIOR pt stated levothyroxine [Unithroid] 100 mcg tablet 100 mcg PO DAILY Qty: 90 1RF liothyronine 5 mcg tablet See Rx Instructions .ROUTE .COMPLEX Qty: 90 1RF Dose Instruction: TAKE 1 TABLET BY MOUTH AT BEDTIME Rx Instructions: TAKE 1 TABLET BY MOUTH AT BEDTIME ropinirole 1 mg tablet 1 mg PO QHS Qty: 90 0RF cephalexin 500 mg capsule 500 mg PO Q12H 5 Days Qty: 10 0RF timolol 0.5 % Drops 1 drp EACH EYE BID <Shanna Lucia PA-C - Last Filed: 09/16/25 18:55> Follow-up/Referrals: Adwoa Ordonez DO [Primary Care Provider, Family Practice] - 1 Week <Shanna Lucia PA-C - Last Filed: 09/16/25 18:55>
[2025-09-16 13:46] LABS: Hematocrit 35.9 % (37.0-47.0); Hemoglobin 11.5 g/dL (12.0-15.0); Immature Granulocyte Percent A 0.2 % (0-0.5); Lymphocytes Absolute Auto 0.62 K/mm3 (0.9-3.2); Mean Corpuscular HGB Conc 32.0 g/dl (32-36); Mean Corpuscular Hemoglobin 25.5 pg (26-34); Mean Corpuscular Volume 79.6 fl (80-100); Nucleated Red Blood Cells Absolute Auto 0.000 K/mm3 (0.0-0.012); Nucleated Red Blood Cells Perc 0.0 % (0.0-0.2); Platelet Count Result 225 k/mm3 (150-375); Red Blood Count 4.51 M/mm3 (4.2-5.4); White Blood Count 5.1 K/mm3 (4.5-10.0)
--- OUTSIDE RECORDS SUMMARY | 2025-09-16 13:58 | XMS_ITS | Encounter Summary ---
Author Organization [facility] Address [facility] [place] [address] Care Team Providers Care Procedure Analyst Name Role Phone Amisha Monique MD Primary Care Provider [phone] Castro Lopez MD Unavailable [phone] Judah Clark MD Unavailable Justin Wing MD Unavailable [phone] Encounter Details Date Type Department Care Team (Late st Contact Info) Description 09/06/2023 Prep for Procedure [facility] Pre-Admission Testing [place], [place] [id number] Laisha Rutledge MD [address] [facility] [address] [place], [place] [id number] Social History Tobacco Use Types Packs/Day Years [...] 6:45 AM Judith Araya RN Active * [place] Suicide Severity Rating Scale (Screener/Recent Self-Report) Question [...] of lower extremities with ulcer and inflammation ([facility] HHS/HCC) 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 [facility] [address] [place] [address] Referring Physician VASCULAR SURGERY 08/23/23 Justin Wing MD [address] [facility] [address] [place] [address] GASTROENTEROLOGY 08/23/23 documented as of this encounter
--- OUTSIDE RECORDS SUMMARY | 2025-09-16 13:58 | XMS_ITS | Clinical Summary ---
Author Organization [facility] Address [address] [place] [address] Care Team Providers Care Coordinator Of Genetic Services Name Role Phone Amisha Monique MD Primary Care Provider [phone] Castro Lopez MD Unavailable [phone] Judah Clark MD Unavailable Justin Wing MD Unavailable [phone] Allergies Active Allergy Reactions Criticality Noted Date [...] (06/01/2023): Added automatically from request for surgery [id number] Nausea and vomiting, unspecified vomiting type 0 06/01/2023 Overview (06/01/2023): Added automatically from request for surgery [id number] Irregular bowel habits 06/01/2023 Overview (06/01/2023): Added automatically from request for surgery [id number] Pain in joint of left shoulder 04/08/2023 [...] Influenza Adult (Generic) 08/13/2020,01/2019,07/15/2018,2016,07/29/2016,07/25/2016 MMR (MMRII) 03/23/2019 [employer] COVID-19 (ORIGINAL FORMULATION, PURPLE CAP) mRNA, LNP-S, [...] Hemoglobin A1C 08/08/2024 02/07/2024, 07/28/2022 PHQ-2 (Physician [place]) 10/24/2024 05/03/2024 COVID-19 Vaccine ( season) 2025 [...] Hand, RN Medical Devices Implanted Type Area Repair Department Manager Device Identifier Shelf Expiration Date Model / Serial / Lot Orthofix 70mm Rods Implanted:Qty: 2 on 10/04/2023 by Laisha Rutledge MD at [facility] Juan N/A: Spine Lumbar NEW AGE MEDICAL 52-6070 / / Orthofix Set Screw Implanted:Qty: 6 on 10/04/2023 by Laisha Rutledge MD at [facility] Screw N/A: Spine Lumbar NEW AGE MEDICAL 36-2000 / / Orthofix Top Loading Body Implanted:Qty: 6 on 10/04/2023 by Laisha Rutledge MD at [facility] Screw N/A: Spine Lumbar NEW AGE MEDICAL 36-2101 / / Orthofix 6.5x40mm Screw Implanted:Qty: 6 on 10/04/2023 by Laisha Rutledge MD at [facility] Screw N/A: Spine Lumbar NEW AGE [...] Health Maintenance Insurance MEDICARE [employer] Care Teams Coordinator Of Genetic Services Relationship Specialty Start Date End Date Amisha Monique MD [address] [place] [id number] PCP - General FAMILY PRACTICE 02/04/22 Castro Lopez MD [address] [facility] [address] [place] [address] CARDIOVASCULAR DISEASE 08/23/23 Judah Clark MD [facility] [address] [place] [address] Referring Physician VASCULAR SURGERY 08/23/23 Justin Wing MD [address] [facility] [address] [place] [address] GASTROENTEROLOGY 08/23/23
--- OUTSIDE RECORDS SUMMARY | 2025-09-16 13:58 | XMS_ITS | Encounter Summary ---
Author Organization [facility] Address [address] [place] [address] Care Team Providers Care Founder And Chief Executive Officer Name Role Phone Adwoa Ordonez Primary Care Provider Encounter Details Date Type Department Care Team (Late st Contact Info) Description 09/09/2025 Telephone [facility] Cardiology [address] [facility] [address] [place] [address] Castro Lopez MD [address] [place], [place] [id number] Social History Tobacco Use Types Packs/Day Years Used Date Smoking Tobacco: Never Smokeless Tobacco: Never Alcohol Use Standard Drinks/Week Comments No 0 (1 standard drink = 0.6 oz pur e alcohol) Comments No Sex and Gender Information Value Date Recorded Sex Assigned at Not on file Legal Sex Female 12:56 PM EDGING MACHINE CATCHER Gender Identity Female 03/05/2022 12:13 PM CDT Sexual Orientation Not on file documented as of this encounter Miscellaneous Notes * Telephone Encounter - Shavon Ace RN - 09/13/2025 1:43 PM EDGING MACHINE CATCHER noted NG MACHINE CATCHER * Telephone Encounter - Namita Braxton - 09/13/2025 1:33 PM CST Patient called in and confirmed that she received the voicemail and that she understands to take the below dosage. States she is just trying to keep everything together, as her son did pass away. Thank you. NG MACHINE CATCHER * Telephone Encounter - Shavon Ace RN - 09/10/2025 9:52 AM EDGING MACHINE CATCHER LM for patient reviewing the above message. Instructed her to call with additional concerns NG MACHINE CATCHER * Telephone Encounter - Darlene Gerard NP - 09/10/2025 8:39 AM EDGING MACHINE CATCHER These blood pressure readings are very good. Continue half tablet of losartan/HCTZ 100 mg/25 mg. Await phone call from [facility] regarding referral for the valve clinic. Thank you. I am so sorry to hear about her son. NG MACHINE CATCHER * Telephone Encounter - Namita Braxton - 09/10/2025 8:34 AM CST Patient called in for an update. Please advise. Thank you. Contact : [phone] NG MACHINE CATCHER * Telephone Encounter - Letha Fatima - 09/09/2025 11:06 AM CST Pt calling to report BP readings. Pt states her son is dying so she has been stressed out which is why her BP has been elevated. 09/07- 120/66, 137/66 09/08- 143/72, 140/72 Contact: NG MACHINE CATCHER documented in this encounter Plan of Treatment Not on file documented as of this encounter Visit Diagnoses Not on filedocumented in this encounter Care Teams Founder And Chief Executive Officer Relationship Specialty Start Date End Date Adwoa Ordonez DO [address] [place] [address] PCP - General Family Medicine 11/27/24 documented as of this encounter
--- OUTSIDE RECORDS SUMMARY | 2025-09-16 13:59 | XMS_ITS | Encounter Summary ---
Author Organization [facility] Address [address] [facility] [address] [place] [address] Care Team Providers Care Organizational Effectiveness Director Name Role Phone Amisha Monique MD Primary Care Provider + Rohan Ordonez STRAND BUNCHER FINE WIRE Primary Care Provider [phone] Elaine Parker STRAND BUNCHER FINE WIRE Primary Care Provider Adwoa Ordonez DO Primary Care Provider Encounter Details Date Type Department Care Team (Late st Contact Info) Description 11/26/2016 [facility] Only [facility] Provider, MD Maryam [address] [place] [address] Social History Tobacco Use Types Packs/Day Years Used Date Smoking Tobacco: Never Assessed Comments Unknown Sex and Gender Information Value Date Recorded Sex Assigned at Not on file Legal Sex Female 12:56 PM AUDITING SPECIALIST Gender Identity Female 03/05/2022 12:13 PM CDT [...] on filedocumented in this encounter Care Teams Organizational Effectiveness Director Relationship Specialty Start Date End Date Amisha Monique MD PCP - General 11/19/16 08/28/24 Rohan Ordonez NP [address] [place] [address] PCP - General Neurology 08/29/24 11/13/24 Elaine Parker NP [address] [address] PCP - General Nurse Practitioner 11/23/24 11/26/24 Adwoa Ordonez DO [address] [place] [address] PCP - General Family Medicine 11/27/24 documented as of this encounter
--- OUTSIDE RECORDS SUMMARY | 2025-09-16 13:59 | XMS_ITS | Clinical Summary ---
Author Organization [facility] [employer] [employer] Address [address] [facility] [place] [address] Care Team Providers Care Health And Safety Coordinator Name Role Phone Amisha Monique MD Primary Care Provider [phone] Source Comments boarding pass [employer] [employer],non-owned Affiliates and Associated Physician Practices is amultiple site organization consisting of ambulatory clinics and hospital sitesin [place], [place], [place] and [place]. This disclosure is being madepursuant to the Care Everywhere program and may not contain all information available regarding this patient. Last updated 18.[facility] Medications * Be aware that medications may [...] on file Legal Sex Female 6:29 AM PROPERTY ASSESSMENT MONITOR Gender Identity Not on file Sexual Orientation Not on file Last Filed Vital Signs Vital Sign Reading Time Taken Comments Blood Pressure 132/77 09/08/2022 11:59 AM PROPERTY ASSESSMENT MONITOR 116/72 right arm Pulse 80 09/08/2022 11:59 AM PROPERTY ASSESSMENT MONITOR Temperature 36.3 C (97.3 F) 09/08/2022 11:59 AM PROPERTY ASSESSMENT MONITOR Respiratory Rate - - Oxygen Saturation 98% 09/08/2022 11: 59 AM PROPERTY ASSESSMENT MONITOR Inhaled Oxygen Concentration - - Weight 85.7 kg (189 lb) 09/08/2022 11:5 9 AM PROPERTY ASSESSMENT MONITOR Height 160 cm (5' 3) 09/08/2022 11:59 AM PROPERTY ASSESSMENT MONITOR Body Mass Index 33.48 09/08/2022 11:59 AM PROPERTY ASSESSMENT MONITOR Plan of Treatment Health Maintenance Due Date [...] MEDICARE [facility] Care Teams Health And Safety Coordinator Relationship Specialty Start Date End Date Amisha Monique MD [address] [place] [address] JUSTIN Mark [phone] PCP - General 04/14/18
--- OUTSIDE RECORDS SUMMARY | 2025-09-16 13:59 | XMS_ITS | Clinical Summary ---
Author Organization [facility] [address] [facility] [address] Address [address] [place] [address] Care Team Providers Care Charge Manager Name Role Phone Adwoa Ordonez Primary Care [...] to ask her to drive her to [place]. I explained that she could go to [...] controlled. Assessment & Plan (11/24/2022 7:09 PM DIRECTOR HOSPICE OPERATIONS): She has balance problem of unclear etiology. [...] diagnosis. Assessment & Plan (11/24/2022 7:08 PM DIRECTOR HOSPICE OPERATIONS): Technically she has parkinsonism stage 1 or [...] Type Department Care Team Description 09/09/2025 Telephone [facility] Medical [facility] Cardiology [address] [place] [phone] Alvin Lopez MD 09/06/2025 9:30 AM DIRECTOR HOSPICE OPERATIONS Office Visit [facility] Cardiology [address] [place] [phone] Darlene Gerard NP Nonrheumatic aortic valve stenosis (Primary Dx); Stage 3b chronic kidney disease (HCC); Low blood pressure reading; Hospital discharge follow-up; Need for lipid screening 09/05/2025 Telephone [facility] Cardiology [address] [place] [phone] Chula Lancaster MA Appointment Tomorrow 09/04/2025 Orders Only [facility] Cardiology [address] [place] [address] Wellington Nowak MD 09/03/2025 Orders Only [facility] Health Information Management [address] [place] [address] Allie Romero NP 09/03/2025 Telephone [facility] Cardiology [address] [facility] [address] [place] [phone] Alvin Lopez MD 08/28/2025 1:00 PM DIRECTOR HOSPICE OPERATIONS Ancillary Procedure [facility] Cardiology at [address] [place] [phone] Dyspnea on exertion 08/22/2025 Telephone [facility] Cardiology [address] [place] [phone] Alvin Lopez MD 08/15/2025 10:40 AM CDT Office Visit [facility] Medicine Gastroenterology [address] [facility] 12th [place] [address] [place] [address] Justin Wing MD Steatohepatitis, non-alcoholic (Primary Dx); IPMN (intraductal papillary mucinous neoplasm) 08/13/2025 Documentation [facility] Medicine Movement Disorders [address] [facility] [address] [place] [address] Reba Madsen CMA 07/31/2025 11:00 AM CDT Office Visit [facility] Movement Disorders [address] [facility] [address] [place] [address] Karly Echevarria NP Unspecified abnormalities of gait and mobility (Primary Dx); Abnormal gait; Balance problem 06/21/2025 Telephone [facility] Medicine Scheduling [address] [place] [address] Howard Carrero MD PhD Scheduling Appointments from Last 3 Months Surgical [...] Father Augustine Parkinson's dis ease; Stroke Father Daldarlene Parkinsonism Mother Keren Stroke Mother Keren Stroke; [...] on file Legal Sex Female 12:56 PM DIRECTOR HOSPICE OPERATIONS Gender Identity Female 03/05/2022 12:13 PM CDT Sexual Orientation Not on file Last Filed Vital Signs Vital Sign Reading Time Taken Comments Blood Pressure 90/50 09/06/2025 9:34 AM DIRECTOR HOSPICE OPERATIONS Pulse 87 09/06/2025 9:34 AM DIRECTOR HOSPICE OPERATIONS Temperature 36.8 C (98.2 F) 08/15/2025 10:36 AM CDT Respiratory Rate - - Oxygen Saturation 94% 09/06/2025 9:34 AM DIRECTOR HOSPICE OPERATIONS Inhaled Oxygen Concentration - - Weight 83.6 kg (184 lb 3.2 oz) 09/06/2025 9:34 A M DIRECTOR HOSPICE OPERATIONS Height 154.9 cm (5' 1) 09/06/2025 9:34 AM DIRECTOR HOSPICE OPERATIONS Body Mass Index 34.8 09/06/2025 9:34 AM DIRECTOR HOSPICE OPERATIONS Plan of Treatment Health Maintenance Due Date Last Done Comments Albumin Creatinine Ratio, Urine 1950 Colon Cancer Screening-Colonoscopy 1950 Fall Risk Assessment 1950 Hemoglobin A1C 1950 Hepatitis C Screening 1950 Osteoporosis Screening-Bone Density Scan 1950 Dilated Eye Exam 1950 Foot Exam 1950 Hepatitis B Screening 1969 Well Visit 65+ 2016 Breast Cancer Screening-Mammogram 04/08/2021 020 Depression Screening 05/09/2025 05/09/2024 eGFR 09/06/2025 09/06/2024, 10/0 02/2023, 07/16/2021 Lipid Panel 09/06/2026 09/06/2025, 0710/2022, 11/12/2021, Additional history exists DTaP/Tdap/Td Vaccine (3 - Td or Tdap) 12/19/2034 12/19/2024, 10/09/2016 Pneumococcal vaccine 65+ Completed 018, 01/04/2017, 09/10/2015 Zoster Vaccine Completed 09/07/2021, 07/08/2021 Influenza Vaccine Completed 08/07/2025, , 07/20/2022, Additional history exists Procedures Procedure Name Priority Date/Time Associated Diagnosis Comments POCT LIPID PANEL Routine 09/06/2025 11:2 9 AM DIRECTOR HOSPICE OPERATIONS Need for lipid screening CARDIOLOGY DOCUMENT SCAN Routine 09/03/2025 3:15 PM DIRECTOR HOSPICE OPERATIONS CARDIOLOGY DOCUMENT SCAN 09/03/2025 CARDIOLOGY DOCUMENT SCAN Routine 09/01/2025 3:12 PM DIRECTOR HOSPICE OPERATIONS CARDIOLOGY DOCUMENT SCAN Routine 08/31/2025 3:06 PM DIRECTOR HOSPICE OPERATIONS TRANSTHORACIC ECHO (TTE) COMPLETE W DOPPLER/CF WO CONTRAST Routine 08/28/2025 1:39 PM DIRECTOR HOSPICE OPERATIONS Dyspnea on exertion EGFR Routine 09/06/2024 2:12 PM DIRECTOR HOSPICE OPERATIONS Steatohepatitis, non-alcoholic DIAGNOSTIC MAMMOGRAM BILATERAL W BIB Schedule Routine, Read Routine (OP Routine) 04/08/2020 12:13 PM CDT Abnormal mammogram from Last 3 Months or Most Recently Relevant to Health Maintenance Results * (ABNORMAL) POCT lipid panel (09/06/2025 11:29 AM DIRECTOR HOSPICE OPERATIONS) Cholesterol, POC 130 <200 MG/DL HDL, POC 31(A) >=40 mg/dL Triglycerides, POC 297(A) <=149 mg/dL LDL Cholesterol POC 40 <=129 mg/dL Chol/HDL Ratio, POC 1.3 NONE Non-HDL Cholesterol, POC 99 NONE mg/dL Cholesterol Total, POC 130 30 - 199 mg/dL Capillary blood 09/06/2025 1 1:29 AM DIRECTOR HOSPICE OPERATIONS Darlene Gerard NP POINT OF CARE TEST ORDERA BLES Final Result * Cardiology Document Scan (09/03/2025 3:15 PM DIRECTOR HOSPICE OPERATIONS) Anatomical Region Laterality Modality Other Chris Lunsford MD CV CARDIAC SERVICES PROCEDURES F inal Result * Cardiology Document Scan (09/03/2025) Anatomical Region Laterality Modality Other Allie Romero NP CV CARDIAC SERVICES PROCEDUR ES Edited Result - Final * Cardiology Document Scan (09/01/2025 3:12 PM DIRECTOR HOSPICE OPERATIONS) Anatomical Region Laterality Modality Other Wellington Nowak MD CV CARDIAC SERVICES PROCE DURES Final Result * Cardiology Document Scan (08/31/2025 3:06 PM DIRECTOR HOSPICE OPERATIONS) Anatomical Region Laterality Modality Other Wellington Nowak MD CV CARDIAC SERVICES PROCE DURES Final Result * TRANSTHORACIC ECHO (TTE) COMPLETE W DOPPLER/CF WO CONTRAST (08/28/2025 1:39 PM DIRECTOR HOSPICE OPERATIONS) Estimated EF 70-75 % CONS SCIMAGE EF Mod BP 52 % CONS SCIMAGE Anatomical Region Laterality Modality Ultrasound 08/28/2025 12:5 1 PM DIRECTOR HOSPICE OPERATIONS Narrative 08/28/2025 3:11 PM DIRECTOR HOSPICE OPERATIONS [facility] Group Cardiology [address], [place] [address] P:[phone] P:[phone] Echocardiographic Report Patient Name: SAL EDGAR L : 1950 Study Date: 08/28/2025 12:51:15 PM 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 Left Ventricle: Normal left ventricular systolic [...] By: Wellington Nowak MD 08/28/2025 3:10:21 PM DIRECTOR HOSPICE OPERATIONS us Alvin Lopez MD CV ECHO PROCEDURES Final Result * (ABNORMAL) eGFR (09/06/2024 2:12 PM DIRECTOR HOSPICE OPERATIONS) eGFR 39(L) >=60 mL/min/1. 73 m2 Comment: [...] last reviewed 2021. Blood 09/06/2024 2:12 PM DIRECTOR HOSPICE OPERATIONS 09/06/2024 2:29 PM DIRECTOR HOSPICE OPERATIONS us Justin Wing MD LAB BLOOD ORDERABLES Final Result [facility] Department [place] [address] * Diagnostic Mammogram Bilateral W Bib (04/08/2020 [...] Recently Relevant to Health Maintenance Insurance MEDICARE [employer] LIFE MEDICARE FOR LIFE Care Teams Charge Manager Relationship Specialty Start Date End Date Adwoa Ordonez DO [address] [place] [address] PCP - General Family Medicine 11/27/24
--- OUTSIDE RECORDS SUMMARY | 2025-09-16 13:59 | XMS_ITS | Encounter Summary ---
Author Organization [facility] Address [address] [facility] [address] [place] [address] Care Team Providers Care Suture Polisher Name Role Phone Amisha Monique MD Primary Care Provider + Rohan Ordonez PRINTED CIRCUIT BOARDS ROUTER Primary Care Provider [phone] Elaine Parker PRINTED CIRCUIT BOARDS ROUTER Primary Care Provider Adwoa Ordonez DO Primary Care Provider [phone] Encounter Details Date Type Department Care Team (Late st Contact Info) Description 11/19/2016 Orders Only [facility] Provider, MD Maryam [address] [place] [address] Social History Tobacco Use Types Packs/Day Years Used Date Smoking Tobacco: Never Assessed Comments Unknown Sex and Gender Information Value Date Recorded Sex Assigned at Not on file Legal Sex Female 12:56 PM 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
--- OUTSIDE RECORDS SUMMARY | 2025-09-16 13:59 | XMS_ITS | Encounter Summary ---
Author Organization [facility] Address [address] [facility] [place] [address] Care Team Providers Care Air Quality Manager Name Role Phone Amisha Monique MD Primary Care Provider [phone] Encounter Details Date Type Department Care Team (Late st Contact Info) Description 10/26/2022 Telephone [facility] SCHEDULING [address] [place] [address] Adriel Schwab MD [address] [place] [address] Social History Tobacco Use Types Packs/Day Years Used Date Smoking Tobacco: Never Smokeless Tobacco: Never Alcohol Use Standard Drinks/Week Comments No 0 (1 standard drink = 0.6 oz pur e alcohol) Comments No Sex and Gender Information Value Date Recorded Sex Assigned at Not on file Legal Sex Female 6:29 AM X RAY NURSE Gender Identity Not on file Sexual Orientation Not on file documented as of this encounter Miscellaneous Notes * Telephone Encounter - Mikael Marroquin - 10/26/2022 11:39 AM CST Pt is upset over her bumped appt. Would like a sooner appt. Cannot come at 8 am because she watchesher grandson. Please contact patient. [phone]. X RAY NURSE documented in this encounter Plan of Treatment Not on file documented as of this encounter Visit Diagnoses Not on filedocumented in this encounter Care Teams Air Quality Manager Relationship Specialty Start Date End Date Amisha Monique MD [address] [place] [phone] PCP - General 04/14/18 documented as of this encounter
--- OUTSIDE RECORDS SUMMARY | 2025-09-16 13:59 | XMS_ITS | Encounter Summary ---
Author Organization [facility] Address [address] [facility] [address] [place] [address] Care Team Providers Care National Insurance Officer Name Role Phone Amisha Monique MD Primary Care Provider + Rohan Ordonez RETAIL CUSTODIAL ASSOCIATE Primary Care Provider [phone] Elaine Parker RETAIL CUSTODIAL ASSOCIATE Primary Care Provider Adwoa Ordonez DO Primary Care Provider Encounter Details Date Type Department Care Team (Late st Contact Info) Description 10/09/2007 Orders Only [facility] Provider, MD Maryam [address] [place] [address] Social History Tobacco Use Types Packs/Day Years Used Date Smoking Tobacco: Never Assessed Comments Unknown Sex and Gender Information Value Date Recorded Sex Assigned at Not on file 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
[2025-09-16 14:08] LABS: Alanine Aminotransferase 22 U/L (6-35); Albumin Level 4.2 g/dL (3.5-5.1); Alkaline Phosphatase 76 U/L (38-126); Anion Gap 10 mmol/L (4-12); Aspartate Amino Transferase 40 U/L (14-36); Bilirubin,Total 0.5 mg/dL (0.2-1.3); Blood Urea Nitrogen 15 mg/dL (7-17); Calcium 9.4 mg/dL (8.4-10.2); Carbon Dioxide 28 mmol/L (22-30); Chloride 90 mmol/L (98-107); Estimated CRCL calculation 37 ml/min; Estimated Glomerular Filt Rate 44; Glucose 121 mg/dL (65-110); Magnesium 1.8 mg/dL (1.6-2.3); Potassium 2.6 mmol/L (3.4-5.0); Sodium 128 mmol/L (137-145); Total Protein 7.2 g/dL (6.3-8.2)
[2025-09-16 14:34] VITALS: BP 161/89; PULSE 72; RESP 13; O2SAT 100
[2025-09-16 15:05] VITALS: BP 160/51; PULSE 71; RESP 12; O2SAT 100
[2025-09-16] MEDS: POTASSIUM CHLORIDE 20 MEQ ER TABLET 40 MEQ PO (15:12)
[2025-09-16] MEDS: KCL 20 MEQ/SW 100 ML 100 ML 50 MEQ IVPB (15:12)
[2025-09-16] MEDS: SODIUM CHLORIDE 0.9% IV 500 ML 50 ML (15:13)
[2025-09-16 16:01] VITALS: BP 180/64; PULSE 71; RESP 20; O2SAT 97
[2025-09-16 16:19] VITALS: BP 180/64; PULSE 72; RESP 14; O2SAT 99
--- OUTSIDE RECORDS SUMMARY | 2025-09-16 16:54 | XMS_ITS | Encounter Summary ---
Author Organization [facility] Address [address] [facility] [address] [place] [address] Care Team Providers Care Cra Officer Name Role Phone Amisha Monique MD Primary Care Provider + Rohan Ordonez DATABASE ADMIN Primary Care Provider [phone] Elaine Parker DATABASE ADMIN Primary Care Provider [phone] Adwoa Ordonez DO Primary Care Provider Encounter Details Date Type Department Care Team (Late st Contact Info) Description 11/26/2016 Orders Only [facility] Provider, MD Maryam [address] [place] [address] Social History Tobacco Use Types Packs/Day Years Used Date Smoking Tobacco: Never Assessed Comments Unknown Sex and Gender Information Value Date Recorded Sex Assigned at Not on file 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
--- OUTSIDE RECORDS SUMMARY | 2025-09-16 16:54 | XMS_ITS | Clinical Summary ---
Author Organization [facility] [address] [address] [facility] [address] Address [address] [place] [address] Care Team Providers Care Global Climate Change Researcher Name Role Phone Adwoa Ordonez Primary Care Provider [phone] Allergies Active Allergy Reactions Criticality Noted Date [...] to ask her to drive her to [place]. I explained that she could go to [...] controlled. Assessment & Plan (11/24/2022 7:09 PM ASSOCIATE PROFESSOR OF ARCHAEOLOGY): She has balance problem of unclear etiology. [...] diagnosis. Assessment & Plan (11/24/2022 7:08 PM ASSOCIATE PROFESSOR OF ARCHAEOLOGY): Technically she has parkinsonism stage 1 or [...] Type Department Care Team Description 09/09/[address] [facility] Medical [facility] Cardiology [address] [place] [phone] Alvin Lopez MD 09/06/2025 9:30 AM ASSOCIATE PROFESSOR OF ARCHAEOLOGY Office Visit [facility] Cardiology [address] [place] [phone] Darlene Gerard NP Nonrheumatic aortic valve stenosis (Primary Dx); Stage 3b chronic kidney disease (HCC); Low blood pressure reading; Hospital discharge follow-up; Need for lipid screening 09/05/2025 Telephone [facility] Cardiology [address] [place] [phone] Chula Lancaster MA Appointment Tomorrow 09/04/2025 Orders Only [facility] Cardiology [address] [place] [address] Wellington Nowak MD 09/03/2025 Orders Only [facility] Health Information Management [address] [place] [phone] Allie Romero NP 09/03/2025 Telephone [facility] Cardiology [address] [facility] [address] [place] [phone] Alvin Lopez MD 08/28/2025 1:00 PM ASSOCIATE PROFESSOR OF ARCHAEOLOGY Ancillary Procedure [facility] Cardiology at [address] [place] [phone] Dyspnea on exertion 08/22/2025 Telephone [facility] Cardiology [address] [place] [phone] Alvin Lopez MD 08/15/2025 10:40 AM CDT Office Visit [facility] Medicine Gastroenterology [address] [facility] [address] [place] [address] [place] [address] Justin Wing MD Steatohepatitis, non-alcoholic (Primary Dx); IPMN (intraductal papillary mucinous neoplasm) 08/13/2025 Documentation [facility] Medicine Movement Disorders [address] [facility] [address] [place] [address] Reba Madsen CMA 07/31/2025 11:00 AM CDT Office Visit [facility] Movement Disorders [address] [facility] [address] [place] [address] Karly Echevarria NP Unspecified abnormalities of gait and mobility (Primary Dx); Abnormal gait; Balance problem 06/21/2025 Telephone [facility] Medicine Scheduling [address] [place] [address] Howard Carrero MD PhD Scheduling Appointments from [...] on file Legal Sex Female 12:56 PM ASSOCIATE PROFESSOR OF ARCHAEOLOGY Gender Identity Female 03/05/2022 12:13 PM CDT Sexual Orientation Not on file Last Filed Vital Signs Vital Sign Reading Time Taken Comments Blood Pressure 90/50 09/06/2025 9:34 AM ASSOCIATE PROFESSOR OF ARCHAEOLOGY Pulse 87 09/06/2025 9:34 AM ASSOCIATE PROFESSOR OF ARCHAEOLOGY Temperature 36.8 C (98.2 F) 08/15/2025 10:36 AM CDT Respiratory Rate - - Oxygen Saturation 94% 09/06/2025 9:34 AM ASSOCIATE PROFESSOR OF ARCHAEOLOGY Inhaled Oxygen Concentration - - Weight 83.6 kg (184 lb 3.2 oz) 09/06/2025 9:34 A M ASSOCIATE PROFESSOR OF ARCHAEOLOGY Height 154.9 cm (5' 1) 09/06/2025 9:34 AM ASSOCIATE PROFESSOR OF ARCHAEOLOGY Body Mass Index 34.8 09/06/2025 9:34 AM ASSOCIATE PROFESSOR OF ARCHAEOLOGY Plan of Treatment Health Maintenance Due Date [...] LIPID PANEL Routine 09/06/2025 11:2 9 AM ASSOCIATE PROFESSOR OF ARCHAEOLOGY Need for lipid screening CARDIOLOGY DOCUMENT SCAN Routine 09/03/2025 3:15 PM ASSOCIATE PROFESSOR OF ARCHAEOLOGY CARDIOLOGY DOCUMENT SCAN 09/03/2025 CARDIOLOGY DOCUMENT SCAN Routine 09/01/2025 3:12 PM ASSOCIATE PROFESSOR OF ARCHAEOLOGY CARDIOLOGY DOCUMENT SCAN Routine 08/31/2025 3:06 PM ASSOCIATE PROFESSOR OF ARCHAEOLOGY TRANSTHORACIC ECHO (TTE) COMPLETE W DOPPLER/CF WO CONTRAST Routine 08/28/2025 1:39 PM ASSOCIATE PROFESSOR OF ARCHAEOLOGY Dyspnea on exertion EGFR Routine 09/06/2024 2:12 PM ASSOCIATE PROFESSOR OF ARCHAEOLOGY Steatohepatitis, non-alcoholic DIAGNOSTIC MAMMOGRAM BILATERAL W BIB Schedule Routine, Read Routine (OP Routine) 04/08/2020 12:13 PM CDT Abnormal mammogram from Last 3 Months or Most Recently Relevant to Health Maintenance Results * (ABNORMAL) POCT lipid panel (09/06/2025 11:29 AM ASSOCIATE PROFESSOR OF ARCHAEOLOGY) Cholesterol, POC 130 <200 MG/DL HDL, POC 31(A) >=40 mg/dL Triglycerides, POC 297(A) <=149 mg/dL LDL Cholesterol POC 40 <=129 mg/dL Chol/HDL Ratio, POC 1.3 NONE Non-HDL Cholesterol, POC 99 NONE mg/dL Cholesterol Total, POC 130 30 - 199 mg/dL Capillary blood 09/06/2025 1 1:29 AM ASSOCIATE PROFESSOR OF ARCHAEOLOGY Darlene Gerard NP POINT OF CARE TEST ORDERA BLES Final Result * Cardiology Document Scan (09/03/2025 3:15 PM ASSOCIATE PROFESSOR OF ARCHAEOLOGY) Anatomical Region Laterality Modality Other Chris Lunsford MD CV CARDIAC SERVICES PROCEDURES F inal Result * Cardiology Document Scan (09/03/2025) Anatomical Region Laterality Modality Other Allie Romero NP CV CARDIAC SERVICES PROCEDUR ES Edited Result - Final * Cardiology Document Scan (09/01/2025 3:12 PM ASSOCIATE PROFESSOR OF ARCHAEOLOGY) Anatomical Region Laterality Modality Other Wellington Nowak MD CV CARDIAC SERVICES PROCE DURES Final Result * Cardiology Document Scan (08/31/2025 3:06 PM ASSOCIATE PROFESSOR OF ARCHAEOLOGY) Anatomical Region Laterality Modality Other Wellington Nowak MD CV CARDIAC SERVICES PROCE DURES Final Result * TRANSTHORACIC ECHO (TTE) COMPLETE W DOPPLER/CF WO CONTRAST (08/28/2025 1:39 PM ASSOCIATE PROFESSOR OF ARCHAEOLOGY) Estimated EF 70-75 % CONS SCIMAGE EF Mod BP 52 % CONS SCIMAGE Anatomical Region Laterality Modality Ultrasound 08/28/2025 12:5 1 PM ASSOCIATE PROFESSOR OF ARCHAEOLOGY Narrative 08/28/2025 3:11 PM ASSOCIATE PROFESSOR OF ARCHAEOLOGY 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 Left Ventricle: Normal left ventricular systolic function. [...] By: Wellington Nowak MD 08/28/2025 3:10:21 PM ASSOCIATE PROFESSOR OF ARCHAEOLOGY Procedure Note Wellington Nowak MD - 08/28/2025 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 Left Ventricle: Normal left ventricular systolic function. [...] By: Wellington Nowak MD 08/28/2025 3:10:21 PM ASSOCIATE PROFESSOR OF ARCHAEOLOGY us Alvin Lopez MD CV ECHO PROCEDURES Final Result * (ABNORMAL) eGFR (09/06/2024 2:12 PM ASSOCIATE PROFESSOR OF ARCHAEOLOGY) eGFR 39(L) >=60 mL/min/1. 73 m2 Comment: [...] last reviewed 2021. Blood 09/06/2024 2:12 PM ASSOCIATE PROFESSOR OF ARCHAEOLOGY 09/06/2024 2:29 PM ASSOCIATE PROFESSOR OF ARCHAEOLOGY us Justin Wing MD LAB BLOOD ORDERABLES Final Result [facility] Department [place] [address] * Diagnostic Mammogram Bilateral W Bib (04/08/2020 [...] Recently Relevant to Health Maintenance Insurance MEDICARE [facility] Address: [address] [address] [place] [address] [employer] Care Teams Global Climate Change Researcher Relationship Specialty Start Date End Date Adwoa Ordonez DO [address] [place] [address] PCP - General Family Medicine 11/27/24
--- OUTSIDE RECORDS SUMMARY | 2025-09-16 16:54 | XMS_ITS | Data Portability ---
Author Organization [facility] [employer], Main Office Address [address] [place] [address] Care Team Providers Care University Tutor Name Role Phone AMISHA MONIQUE Primary Care Provider [phone] AMISHA MONIQUE Referring Provider Assessment Encounter Date Assessment Date Assessment LastModified [...] screening, QL, stool 2023 024 [email or web address] [id number] [facility], [address], [address], [place], [address], 08:22:10 TSH, serum or plasma 2023 AURY Not available 22:39:06 T4, free, serum 2023 AURY Not available 22:26:00 vitamin B12, serum 2023 AURY Not available 23:26:12 folate, serum 2023 AURY Not available 23:26:16 Referral cardiologis t referral - Please call patient to schedule an appointment . Thank you. 2023 [email or web address] Castro Lopez MD, [address] [place] [address] [address], [place], [address], 08:34:04 Procedures None recorded. Surgeries None recorded. Imaging None recorded. Medication Orders piroxicam 20 mg capsule 2023 [id number], [address] [facility], [place], [place], [id number], 16:39:21 quetiapine 100 mg tablet 2023 [facility], [facility] [facility], [place], [address], 16:39:18 Patient TargetsNo targets recorded. Patient InstructionsNo instructions recorded. 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 Thank you. Referring Physician: Amisha Monique, Family Medicine, Encounter Date: 02/07/2024 Results Created Date Observation Date Name Description Value Unit Range Abnormal Flag Note LastModifiedBy Organization Detail LastModifiedTime 02/07/20 24 02/07/2024 CBC/C OMPLE TE BLD COUNT W/DIF F white blood cells 6.4 x10'3 /uL 4.2-10 .8 Not Available [facility] (Lab) [address] [place], [address], 02/07/2024 21:53:57 02/07/20 24 02/07/2024 CBC/C OMPLE TE BLD COUNT W/DIF F red blood cells 4.59 x10'6 /uL 3.80-5 .20 Not Available [facility] (Lab) [address] [place], [address], 02/07/2024 21:53:57 02/07/20 24 02/07/2024 CBC/C OMPLE TE BLD COUNT W/DIF F hemoglobin 10.2 g/dL 12.0-1 5.6 low Not Available [facility] (Lab) [address] [place], [address], 02/07/2024 21:53:57 02/07/20 24 02/07/2024 CBC/C OMPLE TE BLD COUNT W/DIF F hematocrit 34.8 % 35.7-4 5.7 low Not Available [facility] (Lab) [address] [place], [address], 02/07/2024 21:53:57 02/07/20 24 02/07/2024 CBC/C OMPLE TE BLD COUNT W/DIF F mean red cell volume 75.8 fL 82.0-9 9.0 low Not Available [facility] (Lab) [address] [place], [address], 02/07/2024 21:53:57 02/07/20 24 02/07/2024 CBC/C OMPLE TE BLD COUNT W/DIF F mean red cell hemoglobin 22.2 pg 27.0-3 3.0 low Not Available [facility] (Lab) [address] [place], [address], 02/07/2024 21:53:57 02/07/20 24 02/07/2024 CBC/C OMPLE TE BLD COUNT W/DIF F mean RBC HGB concentratio n 29.3 g/dL 31.0-3 6.0 low Not Available [facility] (Lab) [address] [place], [address], 02/07/2024 21:53:57 02/07/20 24 02/07/2024 CBC/C OMPLE TE BLD COUNT W/DIF F red cell distribution width 16.6 % 11.8-1 5.5 high Not Available [facility] (Lab) [address] [place], [address], 02/07/2024 21:53:57 02/07/20 24 02/07/2024 CBC/C OMPLE TE BLD COUNT W/DIF F platelets 285 x10'3 /uL 150-40 0 Not Available [facility] (Lab) [address] [place], [address], 02/07/2024 21:53:57 02/07/20 24 02/07/2024 CBC/C OMPLE TE BLD COUNT W/DIF F mean platelet volume 10.3 fL 9.0-12 .4 Not Available [facility] (Lab) [address] [place], [address], 02/07/2024 21:53:57 02/07/20 24 02/07/2024 CBC/C OMPLE TE BLD COUNT W/DIF F neutrophils 65.3 % 39.0-7 2.0 Not Available [facility] (Lab) [address] [place], [address], 02/07/2024 21:53:57 02/07/20 24 02/07/2024 CBC/C OMPLE TE BLD COUNT W/DIF F lymphocytes 18.0 % 16.0-4 7.0 Not Available [facility] (Lab) [address] [place], [address], 02/07/2024 21:53:57 04/16/02/07/2024 CBC/C OMPLE TE BLD COUNT W/DIF F monocytes 12.3 % 5.0-12 .0 high Not Available [facility] (Lab) [address] [place], [address], 02/07/2024 21:53:57 02/07/20 24 02/07/2024 CBC/C OMPLE TE BLD COUNT W/DIF F eosinophils 3.6 % 1.0-7. 0 Not Available [facility] (Lab) [address] [place], [address], 02/07/2024 21:53:57 02/07/2002/07/2024 CBC/C OMPLE TE BLD COUNT W/DIF F basophils 0.5 % 0.0-2. 0 Not Available [facility] (Lab) [address] [place], [address], 02/07/2024 21:53:57 02/07/20 24 02/07/2024 CBC/C OMPLE TE BLD COUNT W/DIF F immature granulocytes 0.3 % 0.00-0 .50 Not Available [facility] (Lab) [address] [place], [address], 02/07/2024 21:53:57 02/07/20 24 02/07/2024 CBC/C OMPLE TE BLD COUNT W/DIF F neutrophils, absolute count 4.20 x10'3 /uL 1.5-8. 0 Not Available [facility] (Lab) [address] [place], [address], 02/07/2024 21:53:57 02/07/20 24 02/07/2024 CBC/C OMPLE TE BLD COUNT W/DIF F lymphocytes, absolute count 1.16 x10'3 /uL 1.07-3 .43 Not Available [facility] (Lab) [address] [place], [address], 02/07/2024 21:53:57 02/07/20 24 02/07/2024 CBC/C OMPLE TE BLD COUNT W/DIF F monocytes, absolute count 0.79 x10'3 /uL 0.29-0 .99 Not Available [facility] (Lab) [address] [place], [address], 02/07/2024 21:53:57 02/07/20 24 02/07/2024 CBC/C OMPLE TE BLD COUNT W/DIF F eosinophils, absolute count 0.23 x10'3 /uL 0.02-0 .53 Not Available [facility] (Lab) [address] [place], [address], 02/07/2024 21:53:57 02/07/20 24 02/07/2024 CBC/C OMPLE TE BLD COUNT W/DIF F basophils, absolute count 0.03 x10'3 /uL 0.01-0 .08 Not Available [facility] (Lab) [address] [place], [address], 02/07/2024 21:53:57 02/07/20 24 02/07/2024 CBC/C OMPLE TE BLD COUNT W/DIF F immature granulocytes ,absolute 0.02 x10'3 /uL 0.00-0 .05 Not Available [facility] (Lab) [address] [place], [address], 02/07/2024 21:53:57 02/07/20 24 02/07/2024 CBC/C OMPLE TE BLD COUNT W/DIF F nucleated red blood cells 0.0 % -0 Not Available [facility] (Lab) [address] [place], [address], 02/07/2024 21:53:57 02/07/20 24 02/07/2024 CBC/C OMPLE TE BLD COUNT W/DIF F NRBC# 0.00 x10'3 /uL Not Available [facility] (Lab) [address] [place], [address], 02/07/2024 21:53:57 02/07/20 24 02/07/2024 CBC/C OMPLE TE BLD COUNT W/DIF F anisocytosis OCCASI ONAL Not Available [facility] (Lab) [address] [place], [address], 02/07/2024 21:53:57 02/07/20 24 02/07/2024 CBC/C OMPLE TE BLD COUNT W/DIF F poikilocytos is OCCASI ONAL Not Available [facility] (Lab) [address] [place], [address], 02/07/2024 21:53:57 02/07/20 24 02/07/2024 CBC/C OMPLE TE BLD COUNT W/DIF F hypochromia 1+ Not Available [facility] (Lab) [address] [place], [address], 02/07/2024 21:53:57 02/07/20 24 02/07/2024 CBC/C OMPLE TE BLD COUNT W/DIF F microcytosis OCCASI ONAL Not Available [facility] (Lab) [address] [place], [address], 02/07/2024 21:53:57 02/07/20 24 02/07/2024 HEMOG LOBIN A1C HA1C 7.0 % 4.0-6. 0 high Diabe elis Scree robert Crite ambreen: <5.7% Consi stent with absen ce of diabe elis 5.7-6 .4% Consi stent with incre ased risk for diabe elis (pred iabet es) >OR=6 .5% Consi stent with diabe elis REFER ENCE: Diabe elis Care 2015, 39(King ppl.1 ):s13 -s22 Not Available [facility] (Lab) [address] [place], [address], 02/07/2024 21:47:02 02/07/20 24 02/07/2024 BASIC METAB OLIC PANEL sodium 142 mmol/ L 137-14 5 Not Available [facility] (Lab) [address] [place], [address], 02/07/2024 22:11:55 02/07/20 24 02/07/2024 BASIC METAB OLIC PANEL potassium 4.1 mmol/ L 3.5-5. 1 Not Available [facility] (Lab) [address] [place], [address], 02/07/2024 22:11:55 02/07/20 24 02/07/2024 BASIC METAB OLIC PANEL chloride 110 mmol/ L 98-107 high Not Available [facility] (Lab) [address] [place], [address], 02/07/2024 22:11:55 02/07/20 24 02/07/2024 BASIC METAB OLIC PANEL carbon dioxide 22 mmol/ L 22-30 Not Available [facility] (Lab) [address] [place], [address], 02/07/2024 22:11:55 02/07/20 24 02/07/2024 BASIC METAB OLIC PANEL anion gap 14.1 mmol/ L 14-22 Not Available [facility] (Lab) [address] [place], [address], 02/07/2024 22:11:55 02/07/20 24 02/07/2024 BASIC METAB OLIC PANEL glucose 115 mg/dL 70-99 high Not Available [facility] (Lab) [address] [place], [address], 02/07/2024 22:11:55 02/07/20 24 02/07/2024 BASIC METAB OLIC PANEL BUN 33 mg/dL 8-19 high Not Available [facility] (Lab) [address] [place], [address], 02/07/2024 22:11:55 02/07/20 24 02/07/2024 BASIC METAB OLIC PANEL creatinine 1.32 mg/dL 0.66-1 .25 high Not Available [facility] (Lab) [address] [place], [address], 02/07/2024 22:11:55 02/07/20 24 02/07/2024 BASIC METAB OLIC PANEL GFR 40 Refer ence Range : [place] [facility] GFR Healt hy Adult : >60 [...] or ethni c subgr oups, such as [facility] nics. Outsi de the valid ated camacho [...] s/kdo qi/gf r_cal culat or Not Available [facility] (Lab) [address] [place], [address], 02/07/2024 22:11:55 02/07/20 24 02/07/2024 BASIC METAB OLIC PANEL calcium 9.7 mg/dL 8.4-10 .2 Not Available [facility] (Lab) [address] [place], [address], 02/07/2024 22:11:55 02/07/20 24 02/07/2024 LIPID PANEL cholesterol 183 mg/dL 140-19 9 NIH RYDER NSUS RECOM MENDA TION FOR TRISTEN STERO L: ADULT CHILD LOW RISK: <200 <170 BORDE RLINE : <200- 239 ----- HIGH RISK: >240 >200 Not Available [facility] (Lab) [address] [place], [address], 02/07/2024 22:11:57 02/07/20 24 02/07/2024 LIPID PANEL triglyceride s 227 mg/dL 0-150 high NIH RYDER NSUS REPOR T RECOM MENDA TION FOR TRIGL YCERI JOHNATHON: ADULT CHILD LOW RISK: <150 ----- BODER LINE: 150-1 99 ----- HIGH RISK: >200 ----- Not Available [facility] (Lab) [address] [place], [address], 02/07/2024 22:11:57 02/07/20 24 02/07/2024 LIPID PANEL HDL cholesterol 51 mg/dL 40- Not Available [facility] (Lab) [address] [place], [address], 02/07/2024 22:11:57 02/07/20 24 02/07/2024 LIPID PANEL [...] WILL NOT BE REPOR HERNAN. Not Available [facility] (Lab) [address] [place], [address], 02/07/2024 22:11:57 02/07/20 24 02/07/2024 HEPAT IC/LI JOE PANEL alkaline phosphatase 101 U/L 38-126 Not Available [facility] (Lab) [address] [place], [address], 02/07/2024 22:12:00 02/07/20 24 02/07/2024 HEPAT IC/LI JOE PANEL alanine aminotransfe rase 28 U/L 0-35 Not Available [facility] (Lab) [address] [place], [address], 02/07/2024 22:12:00 02/07/20 24 02/07/2024 HEPAT IC/LI JOE PANEL aspartate aminotransfe rase 43 U/L 15-37 high Not Available [facility] (Lab) [address] [place], [address], 02/07/2024 22:12:00 02/07/20 24 02/07/2024 HEPAT IC/LI JOE PANEL bilirubin, total 0.50 mg/dL 0.20-1 .30 Not Available [facility] (Lab) [address] [place], [address], 02/07/2024 22:12:00 02/07/20 24 02/07/2024 HEPAT IC/LI JOE PANEL bilirubin, conjugated (direct) 0.02 mg/dL 0.00-0 .30 Not Available [facility] (Lab) [address] [place], [address], 02/07/2024 22:12:00 02/07/20 24 02/07/2024 HEPAT IC/LI JOE PANEL biliurubin,u ncong. (indirect) 0.00 mg/dL 0.00-1 .1 Not Available [facility] (Lab) [address] [place], [address], 02/07/2024 22:12:00 02/07/20 24 02/07/2024 HEPAT IC/LI JOE PANEL total protein 7.2 g/dL 6.3-8. 2 Not Available [facility] (Lab) [address] [place], [address], 02/07/2024 22:12:00 02/07/20 24 02/07/2024 HEPAT IC/LI JOE PANEL albumin 4.2 g/dL 3.0-4. 4 Not Available [facility] (Lab) [address] [place], [address], 02/07/2024 22:12:00 02/07/20 24 02/07/2024 HEPAT IC/LI JOE PANEL globulin 3.0 g/dL 2.6-4. 2 Not Available [facility] (Lab) [address] [place], [address], 02/07/2024 22:12:00 02/07/20 24 02/07/2024 HEPAT IC/LI JOE PANEL A/G ratio 1.4 ratio 1.0-2. 0 Not Available [facility] (Lab) [address] [place], [address], 02/07/2024 22:12:00 02/07/20 24 02/07/2024 T4 FREE free T4 0.73 NG/dL 0.78-2 .19 low Not Available [facility] (Lab) [address] [place], [address], 02/07/2024 22:26:00 02/07/20 24 02/07/2024 VITAM IN D 25-HY DROXY vd25oh 61.8 NG/mL 30-100 Vitam in D Statu s: Defic ient: <20 ng/mL Insuf ficie nt: 20-29 ng/mL Suffi cient : 30-10 0 ng/mL Not Available [facility] (Lab) [address] [place], [address], 02/07/2024 22:36:55 02/07/20 24 02/07/2024 TSH thyroid-stim ulating hormone 1.200 uIU/m L 0.465- 4.680 Not Available [facility] (Lab) [address] [place], [address], 02/07/2024 22:39:06 02/07/2002/07/2024 VITAM IN B12 (JEREMY MARLON ) vb12 >1000 pg/mL 239-93 1 high Not Available [facility] (Lab) [address] [place], [address], 02/07/2024 23:26:12 02/07/20 24 02/07/2024 FOLAT E, SERUM /PLAS MA folate >20.0 NG/mL 2.76-2 0.0 Not Available [facility] (Lab) [address] [place], [address], 02/07/2024 23:26:16 02/15/20 24 02/15/2024 IRON/ TIBC PANEL total iron binding capacity 387 mcg/d L 265-47 5 Not Available [facility] (Lab) [address] [place], [address], 02/15/2024 21:22:02 02/15/2002/15/2024 IRON/ TIBC PANEL % transferrin saturation 15 % 20-55 low Not Available [facility] (Lab) [address] [place], [address], 02/15/2024 21:22:02 02/15/2002/15/2024 IRON/ TIBC PANEL unsaturated iron bind capacity 329 mcg/d L 126-38 2 Not Available [facility] (Lab) [address] [place], [address], 02/15/2024 21:22:02 02/15/2002/15/2024 IRON/ TIBC PANEL iron 58 mcg/d L 42-175 Not Available [facility] (Lab) [address] [place], [address], 02/15/2024 21:22:02 04/24/20 24 02/15/2024 MEKHI TIN ferritin 11 NG/mL 11.1-2 64 low Not Available [facility] (Lab) [address] [place], [address], 02/15/2024 21:27:13 03/17/20 24 03/17/2024 COLOG UARD [...] is negat owen. TEST DESCR IPTIO N: Convoy site algor ithmi c ashlie sis of [...] years or older , who are at [facility] for color ectal cance r (CRC) . Colog uard has been appro franci for use by the [place] FDA. The perfo rmanc e of Colog uard was estab lishe d in a cross secti onal study of [facility] adult s aged 50-84 . Colog [...] of , [facility] ectal cance [...] at www.c ezio edmonds.c om. Not Available [facility] [address], [place], [address], 03/23/2024 19:34:30 05/23/2005/23/2024 CBC/C OMPLE TE BLD COUNT W/DIF F white blood cells 5.6 x10'3 /uL 4.2-10 .8 Not Available [facility] (Lab) [address] [place], [address], 05/23/2024 19:49:33 05/23/20 24 05/23/2024 CBC/C OMPLE TE BLD COUNT W/DIF F red blood cells 4.63 x10'6 /uL 3.80-5 .20 Not Available [facility] (Lab) [address] [place], [address], 05/23/2024 19:49:33 05/23/20 24 05/23/2024 CBC/C OMPLE TE BLD COUNT W/DIF F hemoglobin 11.6 g/dL 12.0-1 5.6 low Not Available [facility] (Lab) [address] [place], [address], 05/23/2024 19:49:33 05/23/20 24 05/23/2024 CBC/C OMPLE TE BLD COUNT W/DIF F hematocrit 38.2 % 35.7-4 5.7 Not Available [facility] (Lab) [address] [place], [address], 05/23/2024 19:49:33 05/23/20 24 05/23/2024 CBC/C OMPLE TE BLD COUNT W/DIF F mean red cell volume 82.5 fL 82.0-9 9.0 Not Available [facility] (Lab) [address] [place], [address], 05/23/2024 19:49:33 05/23/20 24 05/23/2024 CBC/C OMPLE TE BLD COUNT W/DIF F mean red cell hemoglobin 25.1 pg 27.0-3 3.0 low Not Available [facility] (Lab) [address] [place], [address], 05/23/2024 19:49:33 05/23/20 24 05/23/2024 CBC/C OMPLE TE BLD COUNT W/DIF F mean RBC HGB concentratio n 30.4 g/dL 31.0-3 6.0 low Not Available [facility] (Lab) [address] [place], [address], 05/23/2024 19:49:33 05/23/20 24 05/23/2024 CBC/C OMPLE TE BLD COUNT W/DIF F red cell distribution width 16.1 % 11.8-1 5.5 high Not Available [facility] (Lab) [address] [place], [address], 05/23/2024 19:49:33 05/23/20 24 05/23/2024 CBC/C OMPLE TE BLD COUNT W/DIF F platelets 241 x10'3 /uL 150-40 0 Not Available [facility] (Lab) [address] [place], [address], 05/23/2024 19:49:33 05/23/2005/23/2024 CBC/C OMPLE TE BLD COUNT W/DIF F mean platelet volume 10.7 fL 9.0-12 .4 Not Available [facility] (Lab) [address] [place], [address], 05/23/2024 19:49:33 05/23/20 24 05/23/2024 CBC/C OMPLE TE BLD COUNT W/DIF F neutrophils 63.4 % 39.0-7 2.0 Not Available [facility] (Lab) [address] [place], [address], 05/23/2024 19:49:33 05/23/20 24 05/23/2024 CBC/C OMPLE TE BLD COUNT W/DIF F lymphocytes 20.8 % 16.0-4 7.0 Not Available [facility] (Lab) [address] [place], [address], 05/23/2024 19:49:33 05/23/20 24 05/23/2024 CBC/C OMPLE TE BLD COUNT W/DIF F monocytes 12.7 % 5.0-12 .0 high Not Available [facility] (Lab) [address] [place], [address], 05/23/2024 19:49:33 05/23/20 24 05/23/2024 CBC/C OMPLE TE BLD COUNT W/DIF F eosinophils 2.2 % 1.0-7. 0 Not Available [facility] (Lab) [address] [place], [address], 05/23/2024 19:49:33 05/23/20 24 05/23/2024 CBC/C OMPLE TE BLD COUNT W/DIF F basophils 0.5 % 0.0-2. 0 Not Available [facility] (Lab) [address] [place], [address], 05/23/2024 19:49:33 05/23/2005/23/2024 CBC/C OMPLE TE BLD COUNT W/DIF F immature granulocytes 0.4 % 0.00-0 .50 Not Available [facility] (Lab) [address] [place], [address], 05/23/2024 19:49:33 05/23/20 24 05/23/2024 CBC/C OMPLE TE BLD COUNT W/DIF F neutrophils, absolute count 3.54 x10'3 /uL 1.5-8. 0 Not Available [facility] (Lab) [address] [place], [address], 05/23/2024 19:49:33 05/23/20 24 05/23/2024 CBC/C OMPLE TE BLD COUNT W/DIF F lymphocytes, absolute count 1.16 x10'3 /uL 1.07-3 .43 Not Available [facility] (Lab) [address] [place], [address], 05/23/2024 19:49:33 05/23/2005/23/2024 CBC/C OMPLE TE BLD COUNT W/DIF F monocytes, absolute count 0.71 x10'3 /uL 0.29-0 .99 Not Available [facility] (Lab) [address] [place], [address], 05/23/2024 19:49:33 05/23/20 24 05/23/2024 CBC/C OMPLE TE BLD COUNT W/DIF F eosinophils, absolute count 0.12 x10'3 /uL 0.02-0 .53 Not Available [facility] (Lab) [address] [place], [address], 05/23/2024 19:49:33 05/23/20 24 05/23/2024 CBC/C OMPLE TE BLD COUNT W/DIF F basophils, absolute count 0.03 x10'3 /uL 0.01-0 .08 Not Available [facility] (Lab) [address] [place], [address], 05/23/2024 19:49:33 05/23/20 24 05/23/2024 CBC/C OMPLE TE BLD COUNT W/DIF F immature granulocytes ,absolute 0.02 x10'3 /uL 0.00-0 .05 Not Available [facility] (Lab) [address] [place], [address], 05/23/2024 19:49:33 05/23/20 24 05/23/2024 CBC/C OMPLE TE BLD COUNT W/DIF F nucleated red blood cells 0.0 % -0 Not Available [facility] (Lab) [address] [place], [address], 05/23/2024 19:49:33 05/23/20 24 05/23/2024 CBC/C OMPLE TE BLD COUNT W/DIF F NRBC# 0.00 x10'3 /uL Not Available [facility] (Lab) [address] [place], [address], 05/23/2024 19:49:33 05/23/20 24 05/23/2024 IRON/ TIBC PANEL total iron binding capacity 344 mcg/d L 265-47 5 Not Available [facility] (Lab) [address] [place], [address], 05/23/2024 20:03:33 05/23/20 24 05/23/2024 IRON/ TIBC PANEL % transferrin saturation 25 % 20-55 Not Available [facility] (Lab) [address] [place], [address], 05/23/2024 20:03:33 05/23/20 24 05/23/2024 IRON/ TIBC PANEL unsaturated iron bind capacity 259 mcg/d L 126-38 2 Not Available [facility] (Lab) [address] [place], [address], 05/23/2024 20:03:33 05/23/20 24 05/23/2024 IRON/ TIBC PANEL iron 85 mcg/d L 42-175 Not Available [facility] (Lab) [address] [place], [address], 05/23/2024 20:03:33 05/23/20 24 05/23/2024 MEKHI TIN ferritin 14 NG/mL 11.1-2 64 Not Available [facility] (Lab) [address] [place], [address], 05/23/2024 20:31:08 07/23/20 24 07/20/2024 MAMMO , scree robert, digit al, bilat eral No observ ation record ed. [facility] [address], [place], [address], 07/23/2024 15:12:17 Result Notes None recorded. Problems Name Problem SNOMED Code Status Onset Date Resolution Date Notes Provider Name and Address Organization Details Recorded Time Cellulitis 003393228 Active Not Available [facility] 3 02:52:17 Abscess 447605328 Active Not Available [facility] 3 02:52:17 Backache 866310945 Active Not Available [facility] 3 02:52:17 Dry eyes 153632239 Active Not Available [facility] 3 02:52:17 Liver function tests outside reference range 592978671 Active Not Available [facility] 3 02:52:17 Mammograph y abnormal 607072651 Active Not Available [facility] 3 02:52:18 Spinal stenosis of lumbar region 01491712 Active Not Available [facility] 3 02:52:18 Radiothera py follow-up 710822108 Active Not Available [facility] 3 02:52:18 Steatotic liver disease 663573950 Active Not Available [facility] 3 02:52:18 Abdominal pain 67090139 Active Not Available [facility] 3 02:52:18 Abnormal gait 70801099 Active Not Available [facility] 3 02:52:18 Osteoarthr itis of knee 822001758 Active Not Available [facility] 3 02:52:18 Tremor 59101104 Active Not Available [facility] 3 02:52:18 Degenerati on of lumbar interverte bral disc 61649727 Active Not Available [facility] 3 02:52:18 Muscle weakness 05093560 Active Not Available [facility] 3 02:52:18 Dyspnea 580608843 Active Not Available [facility] 3 02:52:18 Low back pain 754188471 Active Not Available [facility] 3 02:52:18 Persistent cough 004313829 Active Not Available [facility] 3 02:52:18 Enthesopat hy of hip region 18434628 Active Not Available [facility] 3 02:52:19 Knee pain Active Not Available [facility] 3 02:52:19 Bronchitis 47489196 Active Not Available [facility] 3 02:52:19 Drusen of optic disc 36078930 Active Not Available [facility] 3 02:52:19 Depressive disorder 02242486 Active Not Available [facility] 3 02:52:19 Fracture of distal phalanx of finger 17372924 Active Not Available [facility] 3 02:52:19 Arthritis 5899321 Active Not Available [facility] 3 02:52:19 Osteoarthr itis 213278309 Active Not Available [facility] 3 02:52:19 Hypothyroi dism 23242564 Active Not Available [facility] 3 02:52:19 Eczema 18559823 Active Not Available [facility] 3 02:52:19 Paronychia of finger 583025406 Active Not Available [facility] 3 02:52:20 Pain of hip region 57110559 Active Not Available [facility] 3 02:52:20 Cough 41659168 Active Not Available [facility] 3 02:52:20 Upper respirator y infection 45811073 Active Not Available [facility] 3 02:52:20 Hyperlipid emia 00661781 Active Not Available [facility] 3 02:52:20 Intertrigo 95018671 Active Not Available [facility] 3 02:52:20 Essential hypertensi on 23882410 Active Not Available [facility] 3 02:52:20 Diarrhea 50710837 Active Not Available [facility] 3 02:52:21 Chronic cough 75211161 Active Not Available [facility] 3 02:52:21 Urinary tract infectious disease 31872527 Active Not Available [facility] 3 02:52:21 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 12803581 Active Not Available [facility] 3 02:52:21 Paronychia 72785495 Active Not Available [facility] 3 02:52:21 Posterior rhinorrhea 84205601 Active Not Available [facility] 3 02:52:21 Heart murmur 86010633 Active Not Available [facility] 3 02:52:22 Neoplasm of uncertain behavior of skin 10212174 Active Not Available [facility] 3 02:52:22 Diabetes mellitus 08334274 Active 2017 Not Available [facility] 3 02:52:21 Body mass index 30+ - obesity 571558755 Active 2018 Not Available [facility] 3 02:52:17 Allergic rhinitis 14832131 Active 2018 Not Available [facility] 3 02:52:21 Obstructiv e sleep apnea syndrome 50648060 Active 2018 Not Available [facility] 3 02:52:21 Asthma 867125077 Active 2019 Not Available [facility] 3 02:52:18 Aortic valve stenosis 57223022 Active 2020 Not Available [facility] 3 02:52:20 Well controlled type 2 diabetes mellitus 337993307 Active 2022 Aishwarya Rodriguez MD [address], [place], [address] , [facility] 3 15:11:37 Pain of left knee joint 3314729480191 07 Active 2022 EPIFANIO Montano, [facility] 3 14:56:41 Type 2 diabetes mellitus without complicati on 348137035 Active 2022 Amisha Monique MD [address], [place], [address] , [facility] 3 14:12:06 Serum creatinine above reference range 872825020 Active 2022 Amisha Monique MD [address], [place], [address] , [facility] 3 09:07:15 Chronic diarrhea 979706606 Active 2022 Amisha Monique MD [address], [place], [address] , [facility] 3 19:03:03 Pain of left shoulder joint 1836445669110 9109 Active 2022 EPIFANIO Jorgensen, [facility] 3 14:11:37 Vitamin D deficiency 04557426 Active 2022 Amisha Monique MD [address], [place], [address] , [facility] 3 14:15:00 Chronic kidney disease 010148196 Active 2022 Aishwarya Rodriguez MD [address], [place], [address] , [facility] 3 12:14:26 Dyslipidem ia 706763508 Active 2022 Aishwarya Rodriguez MD [address], [place], [address] , [facility] 3 12:25:07 Osteoarthr itis of left knee joint 0128727964946 09 Active 2022 Rea Meadows Gilbert null, MD - [facility] 3 15:01:20 Restless legs syndrome 07492437 Active 2023 Amisha Monique MD [address], [place], [address] , [facility] 4 19:12:45 Cobalamin deficiency 289679856 Active 2023 Amisha Monique MD [address], [place], [address] , [facility] 4 14:20:08 Dyspnea on exertion 41840512 Active 2023 Amisha Monique MD [address], [place], [address] , [facility] 4 14:24:41 Microcytic anemia 515973460 Active 2023 Amisha Monique MD [address], [place], [address] , [facility] 4 17:45:21 Iron deficiency anemia 57970312 Active 2023 Amisha Monique MD [address], [place], [address] , [facility] [employer] 4 09:59:21 Pain of multiple joints 48963297 Active 2023 OSVALDO Pfeiffer [address] [facility], [facility] [address], [place], [address] , [facility] [employer] 16:26:47 Problem Notes None recorded. Procedures Surgical History Date Name Laterality Status Provider Name and Address Organization Details Recorded Time 11/08/19 24 Transitional_Care_ Management completed Renetta Bourgeois RN [facility] [employer] 11/08/2023 17:04:27 cholecystectomy completed Not Available [facility] 12/22/2022 02:45:21 Heart Catheterization completed Not Available [facility] 12/22/2022 02:45:21 Ablation completed Not Available [facility] 12/22/2022 02:45:21 colonoscopy completed Not Available [facility] 12/22/2022 02:45:21 oophorectomy completed Not Available [facility] 12/22/2022 02:45:21 Hysterectomy completed Not Available [facility] 12/22/2022 02:45:21 Wrist arthroscopy/surger y completed Not Available [facility] 12/22/2022 02:45:21 Tonsillectomy completed Not Available [facility] 12/22/2022 02:45:21 Cataract Surgery completed Not Available [facility] 12/22/2022 02:45:21 Knee Replacement completed Not Available [facility] 12/22/2022 02:45:21 Imaging Results None recorded. Procedure [...] 1 ml SC x 1 12/[address] [id number] [id number] 7 Not Available Not Available Not [...] n for injection in office 11/[address] [facility]: [id number] 02-10 Not Available Not Available Not [...] Available Not Available Not Available Fluarix Quad [id number] (PF) 60 mcg (15 mcg x 4)/0.5 [...] (BMI) Body weight Heart rate Oxygen saturation Systolic And Diastolic Provider Name and Address Organization Details Last Updated DateTime 4 160.02 cm 34.7 kg/m2 12000.1 g 106 /min 97 % 146/70 mm[Hg] Kari Hinjoosa RN [facility] [employer] [facility] 4 14:08:21 Date Recorded Body height Body mass index (BMI) Body weight Body temperature Heart rate Oxygen saturation Systolic And Diastolic Provider Name and Address Organization Details Last Updated DateTime 4 160.02 cm 34.9 kg/m2 05473.7 g 99 [degF] 91 /min 97 % 138/80 mm[Hg] Renetta Bourgeois RN [facility] [employer] [facility] 4 14:44:00 Date Recorded Body height Provider Name an d Address Organization Details Last Updated DateTime 05/23/2024 160.02 cm Kari Hinojosa RN [facility] [employer] [facility] 05/23/2024 15:40:14 Date Recorded Body height Body mass index (BMI) Body weight Body temperature Heart rate Oxygen saturation Systolic And Diastolic Provider Name and Address Organization Details Last Updated DateTime 4 160.02 cm 34.7 kg/m2 47266.1 g 97.2 [degF] 73 /min 97 % 138/82 mm[Hg] Renetta Bourgeois RN [facility] [employer] [facility] 4 16:17:08 Social History Question Answer Notes LastModified by Organizat ion Details LastModified Time Tobacco Smoking Status Never Smoker Not Available [facility] 12/22/2022 02:37:36 Do You Have An Advance Directive? No MIGRATION.[id number] Information not available 12/22/2022 Are You Blind Or Do You Have Difficulty Seeing? No MIGRATION.262665 7618 Information not available 12/22/2022 What Is Your Level Of Caffeine Consumption? Moderate MIGRATION.975691 0583 Information not available 12/22/2022 How Much Tobacco Do You Chew? None MIGRATION.597969 4516 Information not available 12/22/2022 In The 14 Days Before Symptom Onset, Have You Had Close Contact With A Laboratory-confirm ed COVID-19 While That Case Was Ill? No MIGRATION.870579 5561 Information not available 12/22/2022 In The 14 Days Before Symptom Onset, Have You Had Close Contact With A Person Who Is Under Investigation For COVID-19 While That Person Was Ill? No MIGRATION.067579 4120 Information not available 12/22/2022 Are You Deaf Or Do You Have Serious Difficulty Hearing? No MIGRATION.072457 1234 Information not available 12/22/2022 What Type Of Diet Are You Following? REGULAR MIGRATION.110796 2207 Information not available 12/22/2022 Which Illicit Or Recreational Drugs Have You Used? None MIGRATION.634306 2990 Information not available 12/22/2022 What Was The Date Of Your Most Recent Tobacco Screening? 06/17/2021 MIGRATION.177827 2212 Information not available 12/22/2022 Do You Have Any Pets? Yes MIGRATION.710426 8189 Information not available 12/22/2022 What Is Your Relationship Status? MIGRATION.042230 7353 Information not available 12/22/2022 How Much Tobacco Do You Smoke? No MIGRATION.245592 7413 Information not available 12/22/2022 Has Tobacco Cessation Counseling Been Provided? No MIGRATION.967463 9545 Information not available 12/22/2022 Have You Recently Traveled Abroad? No MIGRATION.257767 3088 Information not available 12/22/2022 Do You Have Difficulty Walking Or Climbing Stairs? No MIGRATION.624573 1858 Information not available 12/22/2022 Sex: Female Functional Status Question Answer Note LastModified by Organizat ion Details LastModified Time Do you use any illicit or recreational drugs? No MIGRATION.721568 5824 Information not available 12/22/2022 What is your level of alcohol consumption? None MIGRATION.246476 4483 Information not available 12/22/2022 Do you or have you ever used smokeless tobacco? Never used smokeless tobacco MIGRATION.434399 1366 Information not available 12/22/2022 Do you have transportation difficulties? No MIGRATION.116092 1580 Information not available 12/22/2022 Are you able to walk independently without assistance or assistive devices? YESWOREST MIGRATION.596151 6080 Information not available 12/22/2022 Do you have difficulty doing errands alone? No MIGRATION.590713 1337 Information not available 12/22/2022 Are you able to care for yourself independently? Yes MIGRATION.766996 9247 Information not available 12/22/2022 What is your occupation? Retired MIGRATION.079894 0309 Information not available 12/22/2022 Do you have difficulty dressing, bathing, grooming, or toileting? No MIGRATION.859237 7018 Information not available 12/22/2022 Do you or have you ever used e-cigarettes or vape? Never used electronic cigarettes MIGRATION.966913 5588 Information not available 12/22/2022 What is your exercise level? Occasional MIGRATION.822957 6678 Information not available 12/22/2022 Mental Status Question Answer Note LastModified by Organizat ion Details LastModified Time Do you have difficulty concentrating, remembering or making decisions? No MIGRATION.[id number] 6 Information not available 12/22/2022 Family History Relationship Description Onset Age of this Age Resolved Age Notes LastModified by Organization Details LastModified Time Father Heart disease MIGRATION.551 [id number] Not available 12/22/2022 02:45:24 Father Cerebrovascu lar accident MIGRATION.592 [id number] Not available 12/22/2022 02:45:25 Father Diabetes mellitus MIGRATION.808 [id number] Not available 12/22/2022 02:45:25 Mother Parkinson's disease MIGRATION.940 7125666 Not available 12/22/2022 02:45:25 Mother Diabetes mellitus MIGRATION.298 [id number] Not available 12/22/2022 02:45:25 Father Family history of malignant neoplasm [email or web address] Not available 2022 15:09:07 Father Hypertensive disorder [email or web address] Not available 2022 15:09:22 Mother Hypertensive disorder [email or web address] Not available 2022 15:09:22 Notes:No colon or ovary canc er Medical History Condition Response HIGH CHOLESTEROL / HYPERLIPIDEMIA Y EYE PROBLEMS Y THYROID DISEASE Y ARTHRITIS Y SKIN PROBLEMS Y DIABETES, TYPE Y USE OF NSAIDS Y HEART DISEASE/HEART PROBLEMS Y LIVER DISEASE Y HYPERTENSION Y Gynecological History Statement/Question Response Dislike of Light during Menstrual Headac he N Menses Monthly N Current Control Method Menopause Breast Problems no Obstetrics History GPAL:G 0 P 0 0 0 0 Immunizations Vaccine Type Date Status Note Provider Nam e and Address Organization Details Recorded Time Influenza, split virus, quadrivalent, preservative 2 completed Not Available [facility] 12/22/2022 03:00:03 COVID-19, mRNA, LNP-S, PF, 30 mcg/0.3 mL dose 2 completed [place] 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, [facility] 09/19/2023 14:42:17 Influenza, split virus, quadrivalent, preservative 0 completed [place] [employer] 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, [facility] 09/19/2023 14:42:17 Influenza, split virus, quadrivalent, preservative 8 completed [place] [employer] 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, [facility] 09/19/2023 14:42:17 Influenza, split virus, quadrivalent, preservative 7 completed [place] AIR 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, [facility] 09/19/2023 14:42:17 Influenza, split virus, quadrivalent, preservative 6 completed [place] [employer] 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, [facility] 09/19/2023 14:42:17 Influenza, split virus, quadrivalent, preservative 6 completed Not Available [facility] 12/22/2022 03:00:04 Influenza, high-dose, quadrivalent, PF 1 completed Not Available [facility] 12/22/2022 03:00:04 Pneumococcal conjugate PCV 13 8 completed [place] [employer] 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, [facility] 09/19/2023 14:42:17 pneumococcal polysaccharide PPV23 7 completed Not Available [facility] 12/22/2022 03:00:04 pneumococcal polysaccharide PPV23 5 completed Not Available [facility] 12/22/2022 03:00:04 Past Encounters Encounter ID Performer Location Encounter Start Date Encounter Closed Date Diagnosis/Indication Diagnosis SNOMED-CT Code Diagnosis ICD10 Code Diagnosis IMO Codes Diagnosis Note [id number] Terrancebee Stefan, FLIGHT SERVICE SPECIALIST [facility] [place] [address] [place] [address] 01/01/2021 00:00:00 01/01/2021 15:05:23 [id number] Amisha Monique MD [facility] [place] [address] [place] [address] 02/19/2021 00:00:00 02/19/2021 08:38:33 [id number] Amisha Monique MD [facility] [place] [address] [place] [address] 04/01/2021 00:00:00 04/22/2021 09:51:18 [id number] Amisha Monique MD [facility] [place] [address] [place] [address] 04/21/2021 00:00:00 04/21/2021 20:27:22 [id number] Amisha Monique MD [facility] [place] [address] [place] [address] 04/24/2021 00:00:00 04/24/2021 21:23:47 [id number] Amisha Monique MD [facility] [place] [address] [place] [address] 04/29/2021 00:00:00 04/29/2021 14:32:15 [id number] Amisha Monique MD [facility] [place] [address] [place] [address] 05/06/2021 00:00:00 05/06/2021 18:34:06 [id number] Aishwarya Rodriguez MD [facility] [place] [address] [place] [address] 05/18/2021 00:00:00 05/18/2021 14:36:08 [id number] [facility] [place] [address] [place] [address] 06/17/2021 00:00:00 06/17/2021 14:45:43 [id number] Amisha Monique MD [facility] [place] [address] [facility] [address] [place] [address] 07/28/2021 00:00:00 07/28/2021 18:19:21 [id number] Amisha Monique MD [facility] [address] [place] [address] 08/21/2021 00:00:00 08/21/2021 20:14:54 [id number] Amisha Monique MD [facility] [address] [place] [address] 09/08/2021 00:00:00 09/14/2021 10:57:19 [id number] Amisha Monique MD [facility] [address] [place] [address] 10/19/2021 00:00:00 10/19/2021 14:34:17 [id number] Amisha Monique MD [facility] [address] [place] [address] 10/29/2021 00:00:00 10/29/2021 17:10:01 [id number] Aishwarya Rodriguez MD [facility] [place] [address] [place] [address] 11/17/2021 00:00:00 11/17/2021 14:29:02 [id number] Amisha Monique MD [facility] [address] [place] [address] [address] [place] [address] 12/16/2021 00:00:00 12/20/2021 21:28:34 [id number] [facility] [place] [address] [place] [address] 12/22/2021 00:00:00 12/22/2021 14:24:18 [id number] Amisha Monique MD [facility] [place] [address] [place] [address] 12/22/2021 00:00:00 12/22/2021 16:19:24 [id number] Amisha Monique MD [facility] [place] [address] [place] [address] 01/13/2022 00:00:00 01/13/2022 13:04:28 [id number] TATIANNA Orozco [facility] [place] [address] [place] [address] 02/12/2022 00:00:00 02/12/2022 12:18:37 [id number] TATIANNA Orozco [facility] [place] [address] [place] [address] 03/05/2022 00:00:00 03/05/2022 10:06:19 [id number] Amisha Monique MD [facility] [place] [address] [place] [address] 03/15/2022 00:00:00 03/15/2022 12:23:30 [id number] Amisha Monique MD [facility] [place] [address] [place] [address] 03/30/2022 00:00:00 04/21/2022 11:05:00 [id number] Amisha Monique MD [facility] [place] [address] [place] [address] 04/21/2022 00:00:00 04/22/2022 08:04:02 [id number] Aishwarya Rodriguez MD [facility] [place] [address] [place] [address] 05/18/2022 00:00:00 05/18/2022 15:34:22 [id number] LEIDY Gomez [facility] [place] [address] [place] [address] [address] [place] [address] 06/09/2022 00:00:00 06/09/2022 17:40:02 [id number] Amisha Monique MD [facility] Primary Care [facility] [address] [facility] [address] [place] [address] 07/29/2022 00:00:00 07/29/2022 08:40:05 [id number] Amisha Monique MD [facility] Primary Care [address] [place] [address] 08/18/2022 00:00:00 08/18/2022 16:26:34 [id number] Aishwarya Rodriguez MD [facility] [place] [address] [place] [address] 08/23/2022 00:00:00 08/23/2022 19:45:45 [id number] Amisha Monqiue MD [facility] Primary Care [address] [place] [address] 10/06/2022 00:00:00 10/06/2022 14:21:31 [id number] Andrés Hammond MD [facility] [place] [address] [facility] [address] [place] [address] 12/31/2022 14:48:25 01/03/2023 09:42:58 Pain of left knee joint [id number] 74168 M25.562 [id number] Amisha Monique MD [facility] Primary Care [address] [place] [address] 01/04/2023 13:55:48 01/04/2023 14:34:40 Essential hypertension 19753681 I10 stableamlo dipine 5 mg daily and losartan/h ctz 100/25 mg dailyf/u in 3 months Type 2 johnny betes mellitus without complication 474297772 E11.9 due for labs from endocrinol ogy Dr. Rodriguez Hypothyroidism 07050113 E03.9 [id number] Amisha Monique MD [facility] Primary Care [address] [place] [address] 02/21/2023 15:14:56 02/21/2023 16:32:48 [id number] LEIDY Gomez [facility] Primary Care [facility] [address] [facility] 140 [facility] [place] [address] 03/04/2023 12:27:01 03/04/2023 15:24:32 [id number] Andrés Hammond MD [facility] [place] [address] [facility] [address] [place] [address] 04/08/2023 14:01:13 04/08/2023 15:02:22 Pain of left shoulder joint 8674087473 1153794 M25.512 [id number] Amisha Monique MD [facility] Primary Care [address] [place] [address] 06/14/2023 13:58:14 06/14/2023 14:31:35 Diabetes mellitus 96678924 E11.9 check labs Essential hypertension 05787016 I10 stableamlo dipine 5 mg daily and losartan/h ctz 100/25 mg dailyf/u in 3 months Hyperlipidemia 78630911 E78.5 Z79.899 Hypothyroidism 79391273 E03.9 Vitamin D deficiency 347 77217 E55.9 [id number] Amisha Monique MD [facility] Primary Care [address] [facility] [place] [address] 06/16/2023 15:11:58 11/23/2023 04:03:44 [id number] Aishwarya Rodriguez MD [facility] [place] [address] [place] [address] 06/22/2023 11:44:04 06/22/2023 12:29:58 Well controlled type 2 diabetes mellitus 256168623 E11.9 a1c of 6.4%- controlled on lowest dose metformin therapy 250 mg twice daily with meals. Recommende d she continue to incorporat e natural insulin crop setting out machine operator s such as pears, apples, cinnamon, alissa and sweet potatoes to help mobilize her endogenous insulin. Recommende d up to 150 minutes of moderate level activity/e xercise weekly. Chronic ki dney disease 759896088 N18.9 Refer to nephrology as Cr jumped from 1.3 to 1.63 mg/dL- recently placed on PPI therapy- advised to stop until she follows with nephrology - she was encouraged to drink up to 64 ozs of water and stay hydrated. She is on lowest dose metformin with ideal A1C control. Hypothyroidism 40823979 E03.9 Continue on unithroid 100 mcg daily [...] and minerals and reduce inflammati on. Dyslipidemia 817463378 E 78.5 Continue statin therapy as LDL [...] answered and refills necessary at visit today. [id number] Amisha Monique MD [facility] Primary Care [facility] [address] [facility] [address] [place] [address] 07/06/2023 14:58:32 07/22/2023 18:48:25 [id number] Andrés Hammond MD [facility] [place] [address] [facility] [address] [place] [address] 07/13/2023 14:57:18 07/13/2023 16:57:23 Osteoarthritis of left knee joint 1813869385 38075 M17.12 [id number] Amisha Monique MD [facility] Primary Care [facility] [address] [facility] [address] [place] [address] 08/16/2023 15:21:18 08/16/2023 16:05:28 [id number] Amisha Monique MD [facility] Primary Care [facility] [address] [facility] 140 [place] [address] 09/19/2023 14:25:37 09/19/2023 15:14:12 Chronic diarrhea 579990668 K52.9 ok to do brief trial off metformin to see if it helps diarrheare ferral for Dr. Quinones given [id number] Andrés Hammond MD [facility] [place] [address] [place] [address] 09/23/2023 14:38:29 09/23/2023 16:46:25 Pain of left shoulder joint 8396105441 5184250 M25.816 [id number] Amisha Monique MD [facility] Primary Care [address] [place] [address] 11/08/2023 16:54:27 11/08/2023 17:32:00 Transition of care 3028125340 105 Z75.8 Diabetes mellitus 949317 09 E11.9 stay off metformin due to GI s/e and repeat a1c in 3 months Restless l egs syndrome 62291647 G25.81 increase ropinirole up to 2 po qhs and call with update in 4 weeks [id number] Amisha Monique MD [facility] Primary [facility] [address] [place] [address] [address] [place] [address] 12/26/2023 11:44:35 12/28/2023 10:15:18 [id number] Amisha Monique MD [facility] [address] [facility] [address] [place] [address] 02/07/2024 14:04:14 02/07/2024 14:34:31 Screening for malignant neoplasm of colon 918307184 Z12.11 Chronic ki dney disease 243958303 N18.[address] Kanugo Diabetes mellitus 515252 09 E11.9 stable off metforminc an't tolerate due to GI s/esees podiatry and ophtho Essential hypertension 37731859 I10 stableamlo dipine 5 mg daily and losartan/h ctz 100/25 mg dailyf/u in 3 months 02/07/24: stable Dyslipidemia 998471896 E 78.5 Z79.899 Hypothyroidism 19878907 E03.9 Vitamin D deficiency 347 77868 E55.9 Cobalamin deficiency 190 017626 E53.8 Dyspnea on exertion 6084 5006 R06.09 feels more sob than usual, saw cardiology in October but has noticed it since then [id number] Amisha Monique MD [facility] Primary Care [address] [place] [address] 02/15/2024 16:00:04 02/15/2024 16:33:30 [id number] OSVALDO Pfeiffer [facility] Primary Care [address] [place] [address] 04/17/2024 14:31:28 04/17/2024 15:55:16 [id number] OSVALDO Pfeiffer [facility] Primary Care [address] [place] [address] 05/23/2024 15:37:01 05/25/2024 15:29:41 [id number] OSVALDO Pfeiffer [facility] Primary Care [address] [place] [address] 08/07/2024 15:55:55 08/07/2024 16:45:05 Renewal of prescription [id number] Z76.0 Pain of mu ltiple joints [id number] M25.50 pain to moraima lower extremitie s, low backRom and strength continue to be limiteduna ble to walk through the grocery store/Farao ss parking lotparking placard informatio n to be filled out Health Concerns Section Related Observation LastModified by Organization Detai ls LastModified Time None Recorded Concern Status LastModified by Organization Details LastModified Time None Recorded Advance Directives Directive N: Payers Insurance Date Sequence Insurance Name Policy Number Policy Palacios Covered Member ID Palacios Member ID Guarantor Name 08/04/2024 1 [place] Katelin Urias Herve [id number] Katelin Urias Herve 08/13/2024 2 FOR LIFE ( - MEDICARE SUPPLEMENT) Aneesh Edgar [id number] Katelin Urias Herve Notes Date Note Type Note Provider [...] to GI s/e Amisha Monique MD [address], [place], [address], [employer] 03/11/2024 17:23:06 08/07/2024 text/html pt is here for f/u OSVALDO Pfeiffer [address], [place], [address], [employer] 08/07/2024 16:41:02 OBGyn Episode No OBEpisode recorded.
--- OUTSIDE RECORDS SUMMARY | 2025-09-16 16:54 | XMS_ITS | Encounter Summary ---
Author Organization [facility] Address [address] [facility] [address] [place] [address] Care Team Providers Care Painter Spray Name Role Phone Amisha Monique MD Primary Care Provider + Rohan Ordonez EQUIPMENT INSTALLER Primary Care Provider [phone] Elaine Parker EQUIPMENT INSTALLER Primary Care Provider [phone] Adwoa Ordonez DO Primary Care Provider [phone] Encounter Details Date Type Department Care Team (Late st Contact Info) Description 10/09/2007 Orders Only [facility] Provider, MD Maryam [address] [place] [address] Social History Tobacco Use Types Packs/Day Years Used Date Smoking Tobacco: Never Assessed Comments Unknown Sex and Gender Information Value Date Recorded Sex Assigned at Not on file Legal Sex Female 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
--- OUTSIDE RECORDS SUMMARY | 2025-09-16 16:54 | XMS_ITS | Clinical Summary ---
Author Organization [facility] Address [address] [place] [address] Care Team Providers Care Check Out Clerk Name Role Phone Amisha Monique MD Primary Care Provider [phone] Castro Lopez MD Unavailable [phone] Judah Clark MD Unavailable Justin Wing MD Unavailable [phone] Allergies Active Allergy Reactions Criticality Noted Date [...] (06/01/2023): Added automatically from request for surgery [id number] Nausea and vomiting, unspecified vomiting type 0 06/01/2023 Overview (06/01/2023): Added automatically from request for surgery [id number] Irregular bowel habits 06/01/2023 Overview (06/01/2023): Added automatically from request for surgery [id number] Pain in joint of left shoulder 04/08/2023 [...] Influenza Adult (Generic) 08/13/2020,01/2019,07/15/2018,2016,07/29/2016,07/25/2016 MMR (MMRII) 03/23/2019 [employer] COVID-19 (ORIGINAL FORMULATION, PURPLE CAP) mRNA, LNP-S, [...] Hemoglobin A1C 08/08/2024 02/07/2024, 07/28/2022 PHQ-2 (Physician [place]) 10/24/2024 05/03/2024 COVID-19 Vaccine ( season) 2025 [...] Hand, RN Medical Devices Implanted Type Area Mc Kay Stitcher Device Identifier Shelf Expiration Date Model / Serial / Lot Orthofix 70mm Rods Implanted:Qty: 2 on 10/04/2023 by Laisha Rutledge MD at [facility] Juan N/A: Spine Lumbar NEW AGE MEDICAL 52-6070 / / Orthofix Set Screw Implanted:Qty: 6 on 10/04/2023 by Laisha Rutledge MD at [facility] Screw N/A: Spine Lumbar NEW AGE MEDICAL 36-2000 / / Orthofix Top Loading Body Implanted:Qty: 6 on 10/04/2023 by Laisha Rutledge MD at [facility] Screw N/A: Spine Lumbar NEW AGE MEDICAL 36-2101 / / Orthofix 6.5x40mm Screw Implanted:Qty: 6 on 10/04/2023 by Laisha Rutledge MD at [facility] Screw N/A: Spine Lumbar NEW [...] Health Maintenance Insurance MEDICARE HU[employer] Care Teams Check Out Clerk Relationship Specialty Start Date End Date Amisha Monique MD [address] [place] [address] PCP - General FAMILY PRACTICE 02/04/22 Castro Lopez MD [address] [facility] [address] [place] [address] CARDIOVASCULAR DISEASE 08/23/23 Judah Clark MD [facility] [address] [place] [address] Referring Physician VASCULAR SURGERY 08/23/23 Justin Wing MD 1 [facility] [address] [place] [address] GASTROENTEROLOGY 08/23/23
--- OUTSIDE RECORDS SUMMARY | 2025-09-16 16:54 | XMS_ITS | Clinical Summary ---
Author Organization [facility] Address [address] [facility] [place] [address] Care Team Providers Care Decal Applier Name Role Phone Amisha Monique MD Primary Care Provider [phone] Source Comments [facility],non-owned Affiliates and Associated Physician Practices is amultiple site organization consisting of ambulatory clinics and hospital sitesin [place], [place], [place] and [place]. This disclosure is being madepursuant to the Care Everywhere program and may not contain all information available regarding this patient. Last updated 18.[facility] Medications * Be aware that medications may [...] on file Legal Sex Female 6:29 AM UNIVERSITY PROFESSOR Gender Identity Not on file Sexual Orientation Not on file Last Filed Vital Signs Vital Sign Reading Time Taken Comments Blood Pressure 132/77 09/08/2022 11:59 AM UNIVERSITY PROFESSOR 116/72 right arm Pulse 80 09/08/2022 11:59 AM UNIVERSITY PROFESSOR Temperature 36.3 C (97.3 F) 09/08/2022 11:59 AM UNIVERSITY PROFESSOR Respiratory Rate - - Oxygen Saturation 98% 09/08/2022 11: 59 AM UNIVERSITY PROFESSOR Inhaled Oxygen Concentration - - Weight 85.7 kg (189 lb) 09/08/2022 11:5 9 AM UNIVERSITY PROFESSOR Height 160 cm (5' 3) 09/08/2022 11:59 AM UNIVERSITY PROFESSOR Body Mass Index 33.48 09/08/2022 11:59 AM UNIVERSITY PROFESSOR Plan of Treatment Health Maintenance Due Date [...] age to complete this topic Insurance MEDICARE [facility] MEDICARE [facility] Care Teams Decal Applier Relationship Specialty Start Date End Date Amisha Monique MD [address] [place] [address] JUSTIN Mark [address] PCP - General 04/14/18
--- OUTSIDE RECORDS SUMMARY | 2025-09-16 16:54 | XMS_ITS | Encounter Summary ---
Author Organization [facility] Address [facility] [place] [address] Care Team Providers Care Contemporary Or Modern Dancer Name Role Phone Amisha Monique MD Primary Care Provider [phone] Castro Lopez MD Unavailable [phone] Judah Clark MD Unavailable Justin Wing MD Unavailable [phone] Encounter Details Date Type Department Care Team (Late st Contact Info) Description 09/06/2023 Prep for Procedure [facility] Pre-Admission Testing [address] [place], [place] [address] Laisha Rutledge MD [address] [facility] [address] [place], [place] [id number] Social History Tobacco Use Types Packs/Day Years [...] 6:45 AM Judith Araya RN Active * [place] Suicide Severity Rating Scale (Screener/Recent Self-Report) Question [...] of lower extremities with ulcer and inflammation ([facility]/HCC HHS/HCC) 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 [facility] [address] [place] [address] Referring Physician VASCULAR SURGERY 08/23/23 Justin Wing MD 1 [facility] [address] [place] [address] GASTROENTEROLOGY 08/23/23 documented as of this encounter
--- OUTSIDE RECORDS SUMMARY | 2025-09-16 16:54 | XMS_ITS | Encounter Summary ---
Author Organization [facility] Address [address] [facility] [address] [place] [address] Care Team Providers Care Roller Presser Operator Name Role Phone Amisha Monique MD Primary Care Provider + Rohan Ordonez STOCK HANGER Primary Care Provider [phone] Elaine Parker STOCK HANGER Primary Care Provider Adwoa Ordonez DO Primary Care Provider Encounter Details Date Type Department Care Team (Late st Contact Info) Description 11/19/2016 Orders Only [facility] Provider, MD Maryam [address] [place] [address] Social History Tobacco Use Types Packs/Day Years Used Date Smoking Tobacco: Never Assessed Comments Unknown Sex and Gender Information Value Date Recorded Sex Assigned at Not on file Legal Sex Female 12:56 PM MEDICAL OFFICE TECHNICIAN Gender Identity Female 03/05/2022 12:13 PM CDT [...] on filedocumented in this encounter Care Teams Roller Presser Operator Relationship Specialty Start Date End Date Amisha Monique MD PCP - General 11/19/16 08/28/24 Rohan Ordonez NP [address] [place] [address] PCP - General Neurology 08/29/24 11/13/24 Elaine Parker NP [address] [place] [place] [address] PCP - General Nurse Practitioner 11/23/24 11/26/24 Adwoa Ordonez DO [address] [place] [address] PCP - General Family Medicine 11/27/24 documented as of this encounter
--- OUTSIDE RECORDS SUMMARY | 2025-09-16 16:54 | XMS_ITS | Encounter Summary ---
Author Organization [facility] Address [address] [place] [address] Care Team Providers Care Room Worker Name Role Phone Adwoa Ordonez Primary Care Provider Encounter Details Date Type Department Care Team (Late st Contact Info) Description 09/09/2025 Telephone [facility] Cardiology [address] [facility] [address] [place] [address] Castro Lopez MD [address] [place], [place] [address] Social History Tobacco Use Types Packs/Day Years Used Date Smoking Tobacco: Never Smokeless Tobacco: Never Alcohol Use Standard Drinks/Week Comments No 0 (1 standard drink = 0.6 oz pur e alcohol) Comments No Sex and Gender Information Value Date Recorded Sex Assigned at Not on file Legal Sex Female 12:56 PM RAKER BUFFING WHEEL Gender Identity Female 03/05/2022 12:13 PM CDT Sexual Orientation Not on file documented as of this encounter Miscellaneous Notes * Telephone Encounter - Shavon Ace RN - 09/13/2025 1:43 PM RAKER BUFFING WHEEL noted R BUFFING WHEEL * Telephone Encounter - Namita Braxton - 09/13/2025 1:33 PM CST Patient called in and confirmed that she received the voicemail and that she understands to take the below dosage. States she is just trying to keep everything together, as her son did pass away. Thank you. R BUFFING WHEEL * Telephone Encounter - Shavon Ace RN - 09/10/2025 9:52 AM RAKER BUFFING WHEEL LM for patient reviewing the above message. Instructed her to call with additional concerns R BUFFING WHEEL * Telephone Encounter - Darlene Gerard NP - 09/10/2025 8:39 AM RAKER BUFFING WHEEL These blood pressure readings are very good. Continue half tablet of losartan/HCTZ 100 mg/25 mg. Await phone call from [facility] regarding referral for the valve clinic. Thank you. I am so sorry to hear about her son. R BUFFING WHEEL * Telephone Encounter - Namita Braxton - 09/10/2025 8:34 AM CST Patient called in for an update. Please advise. Thank you. Contact : [phone] R BUFFING WHEEL * Telephone Encounter - Letha Fatima - 09/09/2025 11:06 AM CST Pt calling to report BP readings. Pt states her son is dying so she has been stressed out which is why her BP has been elevated. 09/07- 120/66, 137/66 09/08- 143/72, 140/72 Contact: R BUFFING WHEEL documented in this encounter Plan of Treatment Not on file documented as of this encounter Visit Diagnoses Not on filedocumented in this encounter Care Teams Room Worker Relationship Specialty Start Date End Date Adwoa Ordonez DO [address] [place] [address] PCP - General Family Medicine 11/27/24 documented as of this encounter
--- OUTSIDE RECORDS SUMMARY | 2025-09-16 16:54 | XMS_ITS | Encounter Summary ---
Author Organization [facility] Address [address] [facility] [place] [address] Care Team Providers Care Director Toxicology Name Role Phone Amisha Monique MD Primary Care Provider [phone] Encounter Details Date Type Department Care Team (Late st Contact Info) Description 10/26/2022 Telephone [facility] SCHEDULING [address] [place] [address] Adriel Schwab MD [address] [place] [address] Social History Tobacco Use Types Packs/Day Years Used Date Smoking Tobacco: Never Smokeless Tobacco: Never Alcohol Use Standard Drinks/Week Comments No 0 (1 standard drink = 0.6 oz pur e alcohol) Comments No Sex and Gender Information Value Date Recorded Sex Assigned at Not on file Legal Sex Female 6:29 AM WINDOW CLEANER Gender Identity Not on file Sexual Orientation Not on file documented as of this encounter Miscellaneous Notes * Telephone Encounter - Mikael Marroquin - 10/26/2022 11:39 AM CST Pt is upset over her bumped appt. Would like a sooner appt. Cannot come at 8 am because she watchesher grandson. Please contact patient. [phone]. OW CLEANER documented in this encounter Plan of Treatment Not on file documented as of this encounter Visit Diagnoses Not on filedocumented in this encounter Care Teams Director Toxicology Relationship Specialty Start Date End Date Amisha Monique MD [address] [place] [id number] PCP - General 04/14/18 documented as of this encounter
[2025-09-16 17:39] LABS: Anion Gap 6 mmol/L (4-12); Blood Urea Nitrogen 14 mg/dL (7-17); Calcium 9.0 mg/dL (8.4-10.2); Carbon Dioxide 29 mmol/L (22-30); Chloride 90 mmol/L (98-107); Estimated CRCL calculation 37 ml/min; Estimated Glomerular Filt Rate 44; Glucose 109 mg/dL (65-110); Potassium 2.9 mmol/L (3.4-5.0); Sodium 125 mmol/L (137-145)
[2025-09-16] MEDS: POTASSIUM CHLORIDE 20 MEQ ER TABLET PO (17:59)
[2025-09-16 19:00] VITALS: BP 165/72; PULSE 85; RESP 14; O2SAT 97
== END 2025-09-16 19:27 | disposition home or self-care (01) ==
PROVIDERS: Physician Assistant; Emergency Provider Emergency Medicine; PCP Family Medicine
DX: E87.6 Hypokalemia (principal); I12.9 Hypertensive chronic kidney disease with stage 1 through stage 4 chronic kidney disease, or unspecified chronic kidney disease; E11.22 Type 2 diabetes mellitus with diabetic chronic kidney disease; N18.4 Chronic kidney disease, stage 4 (severe); I08.0 Rheumatic disorders of both mitral and aortic valves; I65.23 Occlusion and stenosis of bilateral carotid arteries; I27.20 Pulmonary hypertension, unspecified; J45.909 Unspecified asthma, uncomplicated; E78.5 Hyperlipidemia, unspecified; E03.9 Hypothyroidism, unspecified; K58.2 Mixed irritable bowel syndrome; M81.0 Age-related osteoporosis without current pathological fracture; G47.33 Obstructive sleep apnea (adult) (pediatric); F32.A Depression, unspecified; Z86.73 Personal history of transient ischemic attack (TIA), and cerebral infarction without residual deficits; Z96.1 Presence of intraocular lens; Z98.42 Cataract extraction status, left eye; Z98.41 Cataract extraction status, right eye; Z90.710 Acquired absence of both cervix and uterus; Z90.722 Acquired absence of ovaries, bilateral; Z90.79 Acquired absence of other genital organ(s); Z90.49 Acquired absence of other specified parts of digestive tract; Z79.899 Other long term (current) drug therapy; Z79.82 Long term (current) use of aspirin; I44.0 Atrioventricular block, first degree; R94.31 Abnormal electrocardiogram [ECG] [EKG]
CPT/HCPCS: 36415; 80048; 80053; 83735; 85025; 93005; 96365; 96366; 99284; A9270; J3480; J7040

== ENCOUNTER 2025-09-26 11:39 | Outpatient (CLI) | payer MEDICARE, OTHER, SELFPAY ==
[2025-09-26 12:29] LABS: Anion Gap 7 mmol/L (4-12); Blood Urea Nitrogen 18 mg/dL (7-17); Calcium 9.8 mg/dL (8.4-10.2); Carbon Dioxide 25 mmol/L (22-30); Chloride 99 mmol/L (98-107); Estimated Glomerular Filt Rate 39; Glucose 141 mg/dL (65-110); Potassium 3.5 mmol/L (3.4-5.0); Sodium 131 mmol/L (137-145)
== END 2025-09-26 11:40 | disposition home or self-care (01) ==
PROVIDERS: PCP Family Medicine; Visit Provider Family Medicine
DX: E87.6 Hypokalemia (principal)
CPT/HCPCS: 36415; 80048

== ENCOUNTER 2025-10-14 14:00 | Outpatient (CLI) | payer MEDICARE, OTHER, SELFPAY ==
[2025-10-14 14:19] LABS: Hematocrit 38.3 % (37.0-47.0); Hemoglobin 11.9 g/dL (12.0-15.0); Immature Granulocyte Percent A 0.3 % (0-0.5); Lymphocytes Absolute Auto 1.16 K/mm3 (0.9-3.2); Mean Corpuscular HGB Conc 31.1 g/dl (32-36); Mean Corpuscular Hemoglobin 26.3 pg (26-34); Mean Corpuscular Volume 84.5 fl (80-100); Nucleated Red Blood Cells Absolute Auto 0.000 K/mm3 (0.0-0.012); Nucleated Red Blood Cells Perc 0.0 % (0.0-0.2); Platelet Count Result 240 k/mm3 (150-375); Red Blood Count 4.53 M/mm3 (4.2-5.4); White Blood Count 7.0 K/mm3 (4.5-10.0)
[2025-10-14 14:49] LABS: Anion Gap 10 mmol/L (4-12); Blood Urea Nitrogen 23 mg/dL (7-17); Calcium 9.5 mg/dL (8.4-10.2); Carbon Dioxide 26 mmol/L (22-30); Chloride 105 mmol/L (98-107); Estimated Glomerular Filt Rate 44; Glucose 126 mg/dL (65-110); Potassium 3.3 mmol/L (3.4-5.0); Sodium 141 mmol/L (137-145)
--- OUTSIDE RECORDS SUMMARY | 2025-10-14 15:52 | XMS_ITS | Continuity of Care Document ---
Author Name [facility] Organization [facility] Care Team Providers Care Felt Hat Flanging Operator Name Role Phone [facility] Unavailable Unavailable Immunizations Combined list of available immunizations from the Department of Defense and Veterans Affairs facilities. Immunization Series Date Given Administered By Site Reaction Lot Number CVX Code Drug Active Directory Administrator Status Comments Source COVID-19, mRNA, LNP-S, PF, 30 mcg/0.3 mL dose, emily-sucrose 2021 [facility], () Not Given COVID-19, mRNA, LNP-S, PF, 30 mcg/0.3 mL dose, emily-sucr ose DoD zoster recombinant 2020 [facility], () Not Given zoster recombina nt [facility] COVID-19, mRNA, LNP-S, PF, 30 mcg/0.3 mL dose 2020 [facility], [place] (PFR) Not Given COVID-19, mRNA, LNP-S, PF, 30 mcg/0.3 mL dose DoD zoster recombinant 2020 [facility], () Not Given zoster recombina nt [facility] influenza, high-dose, quadrivalent 2019 [facility], () Not Given influenza , high-dose , quadrival ent DoD Social History Combined list of available smoking, tobacco, and other social history from Department of Defense and Veterans Affairs facilities. Social History Type Response Date Comment Sourc e This section is an empty social history section. DoD
--- OUTSIDE RECORDS SUMMARY | 2025-10-14 15:53 | XMS_ITS | Clinical Summary ---
Author Organization [facility] Address [address] [place] [address] Care Team Providers Care Remote Ruby On Rails Developer Name Role Phone Amisha Monique MD Primary Care Provider [phone] Castro Lopez MD Unavailable [phone] Jduah Clark MD Unavailable Justin Wing MD Unavailable Allergies Active Allergy Reactions Criticality Noted Date [...] (06/01/2023): Added automatically from request for surgery [id number] Nausea and vomiting, unspecified vomiting type 0 06/01/2023 Overview (06/01/2023): Added automatically from request for surgery [id number] Irregular bowel habits 06/01/2023 Overview (06/01/2023): Added automatically from request for surgery [id number] Pain in joint of left shoulder 04/08/2023 [...] Influenza Adult (Generic) 08/13/2020,01/2019,07/15/2018,2016,07/29/2016,07/25/2016 MMR (MMRII) 03/23/2019 [employer] COVID-19 (ORIGINAL FORMULATION, PURPLE CAP) mRNA, LNP-S, [...] Hemoglobin A1C 08/08/2024 02/07/2024, 07/28/2022 PHQ-2 (Physician [place]) 10/24/2024 05/03/2024 COVID-19 Vaccine ( season) 2025 [...] Hand, RN Medical Devices Implanted Type Area Braze Operator Device Identifier Shelf Expiration Date Model / Serial / Lot Orthofix 70mm Rods Implanted:Qty: 2 on 10/04/2023 by Laisha Rutledge MD at [facility] Juan N/A: Spine Lumbar NEW AGE MEDICAL 52-6070 / / Orthofix Set Screw Implanted:Qty: 6 on 10/04/2023 by Laisha Rutledge MD at [facility] Screw N/A: Spine Lumbar NEW AGE MEDICAL 36-2000 / / Orthofix Top Loading Body Implanted:Qty: 6 on 10/04/2023 by Laisha Rutledge MD at [facility] Screw N/A: Spine Lumbar NEW AGE MEDICAL 36-2101 / / Orthofix 6.5x40mm Screw Implanted:Qty: 6 on 10/04/2023 by Laisha Rutledge MD at [facility] Screw N/A: Spine Lumbar NEW [...] Health Maintenance Insurance MEDICARE [employer] Care Teams Remote Ruby On Rails Developer Relationship Specialty Start Date End Date Amisha Monique MD [address] [place] [address] PCP - General FAMILY PRACTICE 02/04/22 Castro Lopez MD [address] [facility] [address] [place] [address] CARDIOVASCULAR DISEASE 08/23/23 Judah Clark MD [facility] [address] [place] [address] Referring Physician VASCULAR SURGERY 08/23/23 Justin Wing MD 1 [facility] [address] [place] [address] GASTROENTEROLOGY 08/23/23
--- OUTSIDE RECORDS SUMMARY | 2025-10-14 15:53 | XMS_ITS | Encounter Summary ---
Author Organization [facility] Healthcare Address [address] [place] [address] Care Team Providers Care Transcription Specialist Name Role Phone Adwoa Ordonez Primary Care Provider Encounter Details Date Type Department Care Team (Late st Contact Info) Description 10/14/2025 Telephone Cardiovascular and Thoracic Surgery [address] [facility] [address] [place] [address] Rissa Chau MD [address] [place] [address] Social History Tobacco Use Types Packs/Day Years Used Date Smoking Tobacco: Never Smokeless Tobacco: Never Alcohol Use Standard Drinks/Week Comments No 0 (1 standard drink = 0.6 oz pur e alcohol) Comments No Sex and Gender Information Value Date Recorded Sex Assigned at Not on file Legal Sex Female 12:56 PM SHIPPING SPECIALIST Gender Identity Female 03/05/2022 12:13 PM CDT Sexual Orientation Not on file documented as of this encounter Miscellaneous Notes * Telephone Encounter - Eleni Gaines - 10/14/2025 12:57 PM CST Extrnal lab orders faxed to [facility], at [phone] PING SPECIALIST documented in this encounter Plan of Treatment Upcoming Encounters Date Type Department Care Team (Latest Contact Info) Description 10/28/2025 9:49 AM SHIPPING SPECIALIST Hospital Encounter [facility] Operating Room [address] [place] [phone] Rissa Chau MD [address] [place], [place] [phone] Nonrheumatic aortic valve stenosis; Encounter for examination for normal comparison and control in clinical research program 10/28/2025 9:49 AM SHIPPING SPECIALIST - 10/28/2025 12:03 PM SHIPPING SPECIALIST Surgery [facility] Operating Room [address] [place] [address] Rissa Chau MD [address] [place] [address] REPLACEMENT AORTIC VALVE - TRANSFEMORAL ENDOVASCULAR APPROACH [62660 (CPT )] documented as of this encounter Visit Diagnoses Not on filedocumented in this encounter Care Teams Transcription Specialist Relationship Specialty Start Date End Date Adwoa Ordonez DO [address] [place] [address] PCP - General Family Medicine 11/27/24 documented as of this encounter
--- OUTSIDE RECORDS SUMMARY | 2025-10-14 15:54 | XMS_ITS | Encounter Summary ---
Author Organization [facility] Address [address] [facility] [address] [place] [address] Care Team Providers Care Cloth Inspector Name Role Phone Amisha Monique MD Primary Care Provider + Rohan Ordonez WASHING MACHINE LOADER AND PULLER Primary Care Provider [phone] Elaine Parker WASHING MACHINE LOADER AND PULLER Primary Care Provider Adwoa Ordonez DO Primary Care Provider Encounter Details Date Type Department Care Team (Late st Contact Info) Description 11/26/2016 Orders Only [facility] Provider, MD Maryam [address] [place] [address] Social History Tobacco Use Types Packs/Day Years Used Date Smoking Tobacco: Never Assessed Comments Unknown Sex and Gender Information Value Date Recorded Sex Assigned at Not on file Legal Sex Female 12:56 PM DIAMOND POWDER MIXER Gender Identity Female 03/05/2022 12:13 PM CDT Sexual Orientation Not on file documented as of this encounter Plan of Treatment Upcoming Encounters Date Type Department Care Team (Latest Contact Info) Description 10/28/2025 9:49 AM DIAMOND POWDER MIXER Hospital Encounter [facility] Operating Room [address] [place] [address] Rissa Chau MD [facility] [place], [place] [id number] Nonrheumatic aortic valve stenosis; Encounter for examination for normal comparison and control in clinical research program 10/28/2025 9:49 AM DIAMOND POWDER MIXER - 10/28/2025 12:03 PM DIAMOND POWDER MIXER Surgery [facility] Operating Room [address] [place] [phone] Rissa Chau MD [address] [place] [address] REPLACEMENT AORTIC VALVE - TRANSFEMORAL ENDOVASCULAR APPROACH [76789 (CPT )] documented as of this encounter Procedures Procedure Name Priority Date/Time Associated Diagnosis Comments CARDIOLOGY REPORT 11/26/2016 CARDIOLOGY REPORT 11/26/2016 documented in this encounter Results * CARDIOLOGY REPORT (11/26/2016) Anatomical Region Laterality Modality Other Narrative 11/26/2016 Ordered by an unspecified provider. Historical Provider CV CARDIAC SERVICES PROCE DURES Final Result * CARDIOLOGY REPORT (11/26/2016) Anatomical Region Laterality Modality Other Narrative 11/26/2016 Ordered by an unspecified provider. Historical Provider CV CARDIAC SERVICES PROCE DURES Final Result documented in this encounter Visit Diagnoses Not on filedocumented in this encounter Care Teams Cloth Inspector Relationship Specialty Start Date End Date Amisha Monique MD PCP - General 11/19/16 08/28/24 Rohan Ordonez NP [address] [place] [address] PCP - General Neurology 08/29/24 11/13/24 Elaine Parker NP [address] [place] [address] PCP - General Nurse Practitioner 11/23/24 11/26/24 Adwoa Ordonez DO [address] [place] [address] PCP - General Family Medicine 11/27/24 documented as of this encounter
--- OUTSIDE RECORDS SUMMARY | 2025-10-14 15:54 | XMS_ITS | Encounter Summary ---
Author Organization [facility] Address [address] [facility] [facility] [address] [facility] [address] [place] [address] Care Team Providers Care Ux Interaction Designer Name Role Phone Amisha Monique MD Primary Care Provider + Rohan Ordonez GARNETT MECHANIC Primary Care Provider [phone] Elaine Parker GARNETT MECHANIC Primary Care Provider [phone] Adwoa Ordonez DO Primary Care Provider [phone] Encounter Details Date Type Department Care Team (Late st Contact Info) Description 10/09/2007 Orders Only [facility] Provider, MD Maryam [address] [place] [address] Social History Tobacco Use Types Packs/Day Years Used Date Smoking Tobacco: Never Assessed Comments Unknown Sex and Gender Information Value Date Recorded Sex Assigned at Not on file Legal Sex Female 12:56 PM TYPESETTING MACHINE TENDER Gender Identity Female 03/05/2022 12:13 PM CDT Sexual Orientation Not on file documented as of this encounter Plan of Treatment Upcoming Encounters Date Type Department Care Team (Latest Contact Info) Description 10/28/2025 9:49 AM TYPESETTING MACHINE TENDER Hospital Encounter [facility] [address] [place] [address] Rissa Chau MD [facility] [place], [place] [id number] Nonrheumatic aortic valve stenosis; Encounter for examination for normal comparison and control in clinical research program 10/28/2025 9:49 AM TYPESETTING MACHINE TENDER - 10/28/2025 12:03 PM TYPESETTING MACHINE TENDER Surgery [facility] Operating [address] [place] [id number] Rissa Chau MD [address] [place] [address] REPLACEMENT AORTIC VALVE - TRANSFEMORAL ENDOVASCULAR APPROACH [26148 (CPT )] documented as of this encounter Procedures Procedure Name Priority Date/Time Associated Diagnosis Comments CARDIOLOGY REPORT 10/09/2007 documented in this encounter Results * CARDIOLOGY REPORT (10/09/2007) Anatomical Region Laterality Modality Other Narrative 10/09/2007 Ordered by an unspecified provider. us Historical Provider [facility] TR[facility]IRSCH Final Result documented in this encounter Visit Diagnoses Not on filedocumented in this encounter Care Teams Ux Interaction Designer Relationship Specialty Start Date End Date Amisha Monique MD PCP - General 11/19/16 08/28/24 Rohan Ordonez NP [address] [place] [address] PCP - General Neurology 08/29/24 11/13/24 Elaine Parker NP [address] [facility] [address] [place] [address] PCP - General Nurse Practitioner 11/23/24 11/26/24 Adwoa Ordonez DO [address] [place] [address] PCP - General Family Medicine 11/27/24 documented as of this encounter
--- OUTSIDE RECORDS SUMMARY | 2025-10-14 15:54 | XMS_ITS | Encounter Summary ---
Author Organization [facility] Address [facility] [place] [address] Care Team Providers Care Wire Steward Name Role Phone Amisha Monique MD Primary Care Provider [phone] Castro Lopez MD Unavailable [phone] Judah Clark MD Unavailable Justin Wing MD Unavailable [phone] Encounter Details Date Type Department Care Team (Late st Contact Info) Description 09/06/2023 Prep for Procedure [facility] [place], [place] [id number] Laisha Rutledge MD [address] [facility] [address] [place], [place] [id number] Social History Tobacco Use Types Packs/Day Years [...] of lower extremities with ulcer and inflammation ([facility]) 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 Stenosis of left subclavian artery Atherosclerosis of other specified arteries Diabetes mellitus ([facility]/HCC) Type II or unspecified type diabetes [...] giddiness documented in this encounter Care Teams Wire Steward Relationship Specialty Start Date End Date Amisha Monique MD [address] [place] [address] PCP - General FAMILY PRACTICE 02/04/22 Castro Lopez MD [address] [facility] [address] [place] [address] CARDIOVASCULAR DISEASE 08/23/23 Judah Clark MD [facility]. [facility] [address] [place] [address] Referring Physician VASCULAR SURGERY 08/23/23 Justin Wing MD [address] [facility] [address] [place] [address] GASTROENTEROLOGY 08/23/23 documented as of this encounter
--- OUTSIDE RECORDS SUMMARY | 2025-10-14 15:54 | XMS_ITS | Encounter Summary ---
Author Organization [facility] Address [address] [facility] [address] [place] [address] Care Team Providers Care Chorus Master Name Role Phone Amisha Monique MD Primary Care Provider + Rohan Ordonez [employer]AYER INSECTIC[employer] Primary Care Provider [phone] Elaine Parker [employer]ER [employer]IC[employer] Primary Care Provider Adwoa Ordonez DO Primary Care Provider Encounter Details Date Type Department Care Team (Late st Contact Info) Description 11/19/2016 Orders Only [facility] Provider, MD Maryam [address] [place] [address] Social History Tobacco Use Types Packs/Day Years Used Date Smoking Tobacco: Never Assessed Comments Unknown Sex and Gender Information Value Date Recorded Sex Assigned at Not on file Legal Sex Female 12:56 PM MEDIA CENTER ASSISTANT Gender Identity Female 03/05/2022 12:13 PM CDT Sexual Orientation Not on file documented as of this encounter Plan of Treatment Upcoming Encounters Date Type Department Care Team (Latest Contact Info) Description 10/28/2025 9:49 AM MEDIA CENTER ASSISTANT Hospital Encounter [facility] Operating [address] [place] [address] Rissa Chau MD [facility] [place], [place] [id number] Nonrheumatic aortic valve stenosis; Encounter for examination for normal comparison and control in clinical research program 10/28/2025 9:49 AM MEDIA CENTER ASSISTANT - 10/28/2025 12:03 PM MEDIA CENTER ASSISTANT Surgery [facility] Operating [address] [place] [phone] Rissa Chau MD [address] [place] [address] REPLACEMENT AORTIC VALVE - TRANSFEMORAL ENDOVASCULAR APPROACH [49632 (CPT )] documented as of this encounter Procedures Procedure Name Priority Date/Time Associated Diagnosis Comments CARDIOLOGY REPORT 11/19/2016 documented in this encounter Results * CARDIOLOGY REPORT (11/19/2016) Anatomical Region Laterality Modality Other Narrative 11/19/2016 Ordered by an unspecified provider. us Historical Provider [facility]IRSCH Final Result documented in this encounter Visit Diagnoses Not on filedocumented in this encounter Care Teams Chorus Master Relationship Specialty Start Date End Date Amisha Monique MD PCP - General 11/19/16 08/28/24 Rohan Ordonez NP [address] [place] [address] PCP - General Neurology 08/29/24 11/13/24 Elanie Parker NP [address] [facility] [address] [place] [address] PCP - General Nurse Practitioner 11/23/24 11/26/24 Adwoa Ordonez DO [address] [place] [address] PCP - General Family Medicine 11/27/24 documented as of this encounter
--- OUTSIDE RECORDS SUMMARY | 2025-10-14 15:54 | XMS_ITS | Clinical Summary ---
Author Organization [facility] Address [address] [place] [address] Care Team Providers Care Balance Screwhead Polisher Name Role Phone Amisha Monique MD Primary Care Provider [phone] Source Comments [facility],non-owned Affiliates and Associated Physician Practices is amultiple site organization consisting of ambulatory clinics and hospital sitesin [place], [place], [place] and [place]. This disclosure is being madepursuant to the Care Everywhere program and may not contain all information available regarding this patient. Last updated 18.[facility] Medications * Be aware that medications may [...] on file Legal Sex Female 6:29 AM ASPHALT DISTRIBUTOR OPERATOR Gender Identity Not on file Sexual Orientation Not on file Last Filed Vital Signs Vital Sign Reading Time Taken Comments Blood Pressure 132/77 09/08/2022 11:59 AM ASPHALT DISTRIBUTOR OPERATOR 116/72 right arm Pulse 80 09/08/2022 11:59 AM ASPHALT DISTRIBUTOR OPERATOR Temperature 36.3 C (97.3 F) 09/08/2022 11:59 AM ASPHALT DISTRIBUTOR OPERATOR Respiratory Rate - - Oxygen Saturation 98% 09/08/2022 11: 59 AM ASPHALT DISTRIBUTOR OPERATOR Inhaled Oxygen Concentration - - Weight 85.7 kg (189 lb) 09/08/2022 11:5 9 AM ASPHALT DISTRIBUTOR OPERATOR Height 160 cm (5' 3) 09/08/2022 11:59 AM ASPHALT DISTRIBUTOR OPERATOR Body Mass Index 33.48 09/08/2022 11:59 AM ASPHALT DISTRIBUTOR OPERATOR Plan of Treatment Health Maintenance Due Date [...] to complete this topic Insurance MEDICARE [facility] MEDICARE [facility] Care Teams Balance Screwhead Polisher Relationship Specialty Start Date End Date Amisha Monique MD [address] [place] [address] JUSTIN Mark [id number] PCP - General 04/14/18
--- OUTSIDE RECORDS SUMMARY | 2025-10-14 15:54 | XMS_ITS | Clinical Summary ---
Author Organization [facility] [place] [address] Address [address] [place] [address] Care Team Providers Care Rat Breeder Name Role Phone Adwoa Ordonez Primary Care Provider [phone] Allergies Active Allergy Reactions Criticality Noted Date Comments Cat Dander Unknown 02/01/2019 Medications albuterol sulfate (PROAIR RESPICLICK) 90 mcg/actuation aerosol powdr breath activated inhale 2 puff by inhalation route every 4 - 6 hours as needed 0 Inhaler 0 017 Active nystatin cream as needed 018 Active tolterodine tartrate (TOLTERODINE ORAL)Indication s:Urinary Urge Incontinence Take 2 mg by mouth daily Active aspirin (ENTERIC COATED ASPIRIN) 81 mg enteric coated tabletIndicatio ns: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 Take 1 tablet (81 mg total) by mouth daily 019 Active liothyronine (CYTOMEL) 5 mcg tablet Take 1 tablet (5 mcg total) by mouth daily Active pimecrolimus (ELIDEL) 1 % cream pimecrolimus 1 % topical cream APPLY A THIN LAYER TO THE AFFECTED AREA(S) BY TOPICAL ROUTE 2 TIMES PER DAY ; RUB IN GENTLY AND COMPLETELY 021 Active levothyroxine (SYNTHROID) 100 mcg tablet TAKE 1 TABLET BY MOUTH ONCE DAILY IN THE MORNING 021 Active timolol (TIMOPTIC) 0.5 % ophthalmic solution INSTILL 1 DROP INTO EACH EYE TWICE DAILY 021 Active rOPINIRole (REQUIP) 0.25 mg tablet Take 6 tablets (1.5 mg total) by mouth nightly Active QUEtiapine (SEROquel) 100 mg tablet Take 1.5 tablets (150 mg total) by mouth nightly Active lidocaine HCL 4 % cream Apply topically Active FeroSuL 325 mg (65 mg iron) tablet Take 1 tablet (325 mg total) by mouth daily Active rOPINIRole (REQUIP) 1 mg tablet Take 1 tablet (1 mg total) by mouth nightly at bedtime Active losartan (COZAAR) 100 mg tablet Take 1 tablet (100 mg total) by mouth daily Active rosuvastatin (CRESTOR) 10 mg tablet Take 1 tablet (10 mg total) by mouth daily Active traZODone (DESYREL) 100 mg tablet TAKE 2 TABLETS BY MOUTH EVERY DAY AT BEDTIME NEEDED FOR INSOMNIA Active piroxicam (FELDENE) 20 mg capsule take 1 capsule by oral route 3 TIMES A WEEK FOR ARTHRITIS 0 0 017 2024 Discontinued(A lternate therapy) ADVAIR HFA 230-21 mcg/actuation inhaler 2 (two) times a day 018 2024 Discontinued(T herapy completed) rosuvastatin (CRESTOR) 20 mg tablet Take 1 tablet (20 mg total) by mouth 2 (two) times a week TAKE IN EVENING 3 019 2024 Discontinued(D uplicate order) blood glucose diagnostic (Accu-Chek Guide test strips) strip Accu-Chek Guide test strips Take 1 strip twice a day by miscell. route before meals for 30 days. 2024 Discontinued(P atient Reported) losartan-hydroc hlorothiazide (HYZAAR) 100-25 mg per tablet Take 0.5 tablets by mouth daily 2024 Discontinued traZODone (DESYREL) 50 mg tablet 4 tablets (200 mg total) nightly as needed 2024 Discontinued(D uplicate order) Active Problems Problem Noted Date Diagnosed Date Encounter for examination fo r normal comparison and control in clinical research program 10/08/2025 Nonrheumatic mitral valve stenosis 10/07/2025 IPMN (intraductal papillary mucinous neoplasm) 1 Balance [...] to ask her to drive her to [place]. I explained that she could go to [...] controlled. Assessment & Plan (11/24/2022 7:09 PM KNOWLEDGE ANALYST): She has balance problem of unclear etiology. [...] diagnosis. 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 1 or [...] Encounters Date Type Department Care Team Description 10/14/2025 Telephone Cardiovascular and Thoracic Surgery [address] [place] [address] [address], [place] [address] Rissa Chau MD 10/08/2025 1:30 PM KNOWLEDGE ANALYST Office Visit Cardiovascular and Thoracic Surgery [address] [place] [address] [address] [place] [address] Rissa Chau MD Nonrheumatic aortic valve stenosis (Primary Dx) 10/08/2025 9:58 AM KNOWLEDGE ANALYST - 10/08/2025 11:59 PM KNOWLEDGE ANALYST Hospital Encounter [facility] - Imaging [address] [place] [address] Lauri Godinez MD Discharge Disposition: Discharge to home or self care 10/07/2025 9:00 AM KNOWLEDGE ANALYST Office Visit [facility] Medical Group Cardiology [address] [facility] [place] [address] Lauri Godinez MD Nonrheumatic aortic valve stenosis (Primary Dx); Mixed hyperlipidemia; Essential hypertension; Nonrheumatic mitral valve stenosis; H/O aortic valve replacement; Thoracic aortic aneurysm without rupture, unspecified part 10/07/2025 Telephone Cardiovascular and Thoracic Surgery [address] [place] [address] [address] [place] [address] Radha English RN 09/30/2025 Telephone [facility] Cardiology [address] [facility] [facility] [address] [place] [phone] Lauri Godinez MD 09/09/2025 Telephone [facility] Cardiology [address] [place] [address] [place] [phone] Alvin Lopez MD 09/06/2025 9:30 AM KNOWLEDGE ANALYST Office Visit [facility] Cardiology [address] [place] [address] [address] [place] [phone] Darlene Gerard NP Nonrheumatic aortic valve stenosis (Primary Dx); Stage 3b chronic kidney disease (HCC); Low blood pressure reading; Hospital discharge follow-up; Need for lipid screening 09/05/2025 Telephone [facility] Cardiology [address] [place] [address] [place] [phone] Chula Lancaster MA Appointment Tomorrow 09/04/2025 Orders Only [facility] Cardiology [address] [place] [address] [place] [phone] Wellington Nowak MD 09/03/2025 Orders Only [facility] [place] Health Information Management [address] [place] [address] Allie Romero NP 09/03/2025 Telephone [facility] Cardiology [address] [place] [address] [place] [phone] Alvin Lopez MD 08/28/2025 1:00 PM KNOWLEDGE ANALYST Ancillary Procedure [facility] Cardiology at [address] [place] [phone] Dyspnea on exertion 08/22/2025 Telephone [facility] Cardiology [address] [place] [address] [place] [phone] Alvin Lopez MD 08/15/2025 10:40 AM CDT Office Visit [facility] [address] [facility] 12th [place] [address] [place] [address] Justin Wing MD Steatohepatitis, non-alcoholic (Primary Dx); IPMN (intraductal papillary mucinous neoplasm) 08/13/2025 Documentation [facility] Medicine Movement Disorders [address] [facility] [address] [place] [address] Reba Madsen CMA 07/31/2025 11:00 AM CDT Office Visit [facility] Medicine Movement Disorders [address] [facility] 7[address] [place] [address] Karly Echevarria NP Unspecified abnormalities of gait and mobility (Primary Dx); Abnormal gait; Balance problem from Last 3 Months Surgical History Surgery Date Site/Laterality Comments TONSILLECTOMY 10/24/1955 - 10/23/1956 OOPHERECTOMY 10/24/1977 - 10/23/1978 WRIST FRACTURE SURGERY 10/24/2003 - 10/23/2004 Left pins used NASAL SEPTUM SURGERY 10/24/2006 - 10/23/2007 CHOLECYSTECTOMY 10/24/2006 - 10/23/2007 ABLATION SAPHENOUS VEIN W/ RFA COLONOSCOPY CATARACT EXTRACTION REPLACEMENT TOTAL KNEE TOTAL ABDOMINAL HYSTERECTOMY W/ BILATERAL SALPINGOOPHORECTOMY HYSTERECTOMY 10/24/1988 - 10/23/1989 KNEE SURGERY 10/24/2016 - 10/23/2017 Right CARDIAC CATHETERIZATION 10/24/1957 - 10/23/1958 Medical History Medical History Date Comments 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 Arthritis Dry eyes Fatty liver disease, nonalcoholic Hypothyroidism High cholesterol Hypertension Eczema Broken bones bilateral wrist left pinned/ right casted Type 2 diabetes mellitus Aortic stenosis Family History Medical History Relation Name Comments Heart disease Father Daldarlene Lung cancer Father Dalec Parkinsonism Father Dalec Parkinson's dis ease; Stroke Father Dalec Heart disease Mother Keren Parkinsonism Mother Keren Stroke Mother Keren Stroke; Breast cancer Mother's Sister Breast cancer Paternal Grandmother heart surgery Sister 1 Ev Relation Name Status Comments Father Gabrielec (Age 89) Mother Keren (Age 88) Mother's [...] on file Legal Sex Female 12:56 PM KNOWLEDGE ANALYST Gender Identity Female 03/05/2022 12:13 PM CDT Sexual Orientation Not on file Last Filed Vital Signs Vital Sign Reading Time Taken Comments Blood Pressure 179/81 10/08/2025 1:06 PM KNOWLEDGE ANALYST Pulse 91 10/08/2025 1:06 PM KNOWLEDGE ANALYST Temperature 36.8 C (98.2 F) 08/15/2025 10:36 AM CDT Respiratory Rate 16 10/08/2025 1:06 PM KNOWLEDGE ANALYST Oxygen Saturation 95% 10/08/2025 1:06 PM KNOWLEDGE ANALYST Inhaled Oxygen Concentration - - Weight 81.6 kg (180 lb) 10/08/2025 1:06 PM KNOWLEDGE ANALYST Height 157.5 cm (5' 2) 10/08/2025 1:06 PM KNOWLEDGE ANALYST Body Mass Index 32.92 10/08/2025 1:06 PM KNOWLEDGE ANALYST Plan of Treatment Upcoming Encounters Date Type Department Care Team (Latest Contact Info) Description 10/28/2025 9:49 AM KNOWLEDGE ANALYST Hospital Encounter [facility] Operating Room [address] [place] [phone] Rissa Chau MD [address] [place] [address] Nonrheumatic aortic valve stenosis; Encounter for examination for normal comparison and control in clinical research program 10/28/2025 9:49 AM KNOWLEDGE ANALYST - 10/28/2025 12:03 PM KNOWLEDGE ANALYST Surgery [facility] Operating Room [address] [place] [phone] Rissa Chau MD [address] [place] [address] REPLACEMENT AORTIC VALVE - TRANSFEMORAL ENDOVASCULAR APPROACH [90586 (CPT )] Health Maintenance Due Date Last Done Comments [...] 09/06/2024, 1002/2023, 07/16/2021 Lipid Panel 09/06/2026 09/06/2025, 07/10/2022, 11/12/2021, Additional history exists DTaP/Tdap/Td Vaccine (3 - Td or Tdap) 12/19/2034 12/19/2024, 10/09/2016 Pneumococcal vaccine 65+ Completed 018, 01/04/2017, 09/10/2015 Zoster Vaccine Completed 09/07/2021, 07/08/2021 Influenza Vaccine Completed 08/07/2025, , 07/20/2022, Additional history exists Procedures Procedure Name Priority Date/Time Associated Diagnosis Comments CT TAVR Schedule Routine, Read Routine (OP Routine) 10/08/2025 12:30 PM KNOWLEDGE ANALYST Nonrheumatic aortic valve stenosis POCT CREATININE FOR CONTRAST EVALUATION Routine 10/07/2025 11:30 AM KNOWLEDGE ANALYST POCT LIPID PANEL Routine 09/06/2025 11:2 9 AM KNOWLEDGE ANALYST Need for lipid screening CARDIOLOGY DOCUMENT SCAN Routine 09/03/2025 3:15 PM KNOWLEDGE ANALYST CARDIOLOGY DOCUMENT SCAN 09/03/2025 CARDIOLOGY DOCUMENT SCAN Routine 09/01/2025 3:12 PM KNOWLEDGE ANALYST CARDIOLOGY DOCUMENT SCAN Routine 08/31/2025 3:06 PM KNOWLEDGE ANALYST TRANSTHORACIC ECHO (TTE) COMPLETE W DOPPLER/CF WO CONTRAST Routine 08/28/2025 1:39 PM KNOWLEDGE ANALYST Dyspnea on exertion EGFR Routine 09/06/2024 2:12 PM KNOWLEDGE ANALYST Steatohepatitis, non-alcoholic DIAGNOSTIC MAMMOGRAM BILATERAL W BIB Schedule Routine, Read Routine (OP Routine) 04/08/2020 12:13 PM CDT Abnormal mammogram from Last 3 Months or Most Recently Relevant to Health Maintenance Results * CT TAVR (10/08/2025 12:30 PM KNOWLEDGE ANALYST) Anatomical Region Laterality Modality Chest N/A Computed Tomogra phy 10/08/2025 3:05 PM KNOWLEDGE ANALYST Impressions 10/09/2025 12:32 AM KNOWLEDGE ANALYST 1. Aortic annulus, and abdominal aortic, common iliac, external iliac, and femoral artery measurements in preparation for TAVR procedure as described above. 2. Aortic valve calcium score: Agatston 454, volume 450 mm3. Dictated by: Paola Dill MD The radiology attending physician has personally reviewed this study, and had reviewed and/or edited this written report and agrees with it. Electronically signed by: Jb Acosta M.D. Narrative 10/09/2025 12:32 AM KNOWLEDGE ANALYST EXAMINATION: CT TAVR HISTORY: Severe aortic stenosis, pre-TAVR procedure. TECHNIQUE: Heart CT and CT angiogram of the abdomen and pelvis performed during intravenous administration of 118 mL of Optiray 350 per the TAVR Protocol. Images were transferred to an independent workstation for additional 3D post-processing. COMPARISON: Abdominal MRI 09/06/2024, chest CT 12/09/2016 FINDINGS: Annulus and thoracic aortic measurements (in systole): Aortic valve annulus: Area 280 mm2; circumference 60 mm; 20 mm maximum diameter x 18 mm minimum diameter Sinuses of Valsalva: 27 mm x 27 mm x 30 mm [id number] Sinotubular junction: 25 mm x 29 mm Ascending aorta: 31 mm x 3 to mm Distance to RCA ostium from aortic valve annulus: 13 mm Distance to left main ostium from annulus: 14 mm Deployment angle: 17 SAMI, 2 Caudal Right coronary sinus height: 15 mm Left coronary sinus height: 20 mm Non-coronary sinus height: 27 mm Aortic valve calcium score: Agatston 454, volume 450 mm3 There is mild left ventricular outflow tract calcification. There is severe mitral annular calcification. Coronary arteries: Anomalous coronary artery course: No Left main atherosclerosis: Mild LAD atherosclerosis: Mild Circumflex atherosclerosis: Mild RCA atherosclerosis: Mild Abdominal aortic and pelvic arterial smallest diameter measurements (made from centerline curved MPRs): Infrarenal aorta: 11 mm x 13 mm. There is mild to moderate calcification. Right common iliac artery: 9 mm x 9 mm. There is mild to moderate calcification. Left common iliac artery: 8 mm x 9 mm. There is mild to moderate calcification. There is mild tortuosity of the bilateral common iliac arteries. This is equal in distribution. Right external iliac artery: 8 mm x 9 mm. There is mild calcification. Left external iliac artery: 8 mm x 8 mm. There is mild calcification. There is mild tortuosity of the bilateral external iliac arteries. This is equal in distribution. Right common femoral artery: 7 x 9 mm. There is mild calcification. Left common femoral artery: 7 x 8 mm. There is mild calcification. There is mild tortuosity of the bilateral femoral arteries. This is equal in distribution. Other findings: Mild bibasilar atelectasis. Prominent mediastinal lymph nodes, likely reactive. Thoracic aortic calcifications. Cholecystectomy. Hepatic cyst. Periportal widening may be seen in setting of hepatic fibrosis. Fatty atrophy of the pancreas. Multiple hypoattenuating lesions in the pancreatic head and body may represent sidebranch intraductal papillary mucinous neoplasms, better characterized on prior MRI. Hysterectomy. Mildly thick-walled decompressed urinary bladder. Colonic diverticulosis without diverticulitis. Ventral abdominal wall hernia containing fat and fluid. Right posterior soft tissue nerve stimulator with lead terminating in the thoracic intraspinal canal. Posterior spinal instrumented fusion of the lumbar spine. Mild anterolisthesis of L4 on L5. Degenerative changes of the spine. Procedure Note Jb Acosta MD PhD - 10/09/2025 EXAMINATION: CT TAVR HISTORY: Severe aortic stenosis, pre-TAVR procedure. TECHNIQUE: Heart CT and CT angiogram of the abdomen and pelvis performed during intravenous administration of 118 mL of Optiray 350 per the TAVR Protocol. Images were transferred to an independent workstation for additional 3D post-processing. COMPARISON: Abdominal MRI 09/06/2024, chest CT 12/09/2016 FINDINGS: Annulus and thoracic aortic measurements (in systole): Aortic valve annulus: Area 280 mm2; circumference 60 mm; 20 mm maximum diameter x 18 mm minimum diameter Sinuses of Valsalva: 27 mm x 27 mm x 30 mm [id number] Sinotubular junction: 25 mm x 29 mm Ascending aorta: 31 mm x 3 to mm Distance to RCA ostium from aortic valve annulus: 13 mm Distance to left main ostium from annulus: 14 mm Deployment angle: 17 SAMI, 2 Caudal Right coronary sinus height: 15 mm Left coronary sinus height: 20 mm Non-coronary sinus height: 27 mm Aortic valve calcium score: Agatston 454, volume 450 mm3 There is mild left ventricular outflow tract calcification. There is severe mitral annular calcification. Coronary arteries: Anomalous coronary artery course: No Left main atherosclerosis: Mild LAD atherosclerosis: Mild Circumflex atherosclerosis: Mild RCA atherosclerosis: Mild Abdominal aortic and pelvic arterial smallest diameter measurements (made from centerline curved MPRs): Infrarenal aorta: 11 mm x 13 mm. There is mild to moderate calcification. Right common iliac artery: 9 mm x 9 mm. There is mild to moderate calcification. Left common iliac artery: 8 mm x 9 mm. There is mild to moderate calcification. There is mild tortuosity of the bilateral common iliac arteries. This is equal in distribution. Right external iliac artery: 8 mm x 9 mm. There is mild calcification. Left external iliac artery: 8 mm x 8 mm. There is mild calcification. There is mild tortuosity of the bilateral external iliac arteries. This is equal in distribution. Right common femoral artery: 7 x 9 mm. There is mild calcification. Left common femoral artery: 7 x 8 mm. There is mild calcification. There is mild tortuosity of the bilateral femoral arteries. This is equal in distribution. Other findings: Mild bibasilar atelectasis. Prominent mediastinal lymph nodes, likely reactive. Thoracic aortic calcifications. Cholecystectomy. Hepatic cyst. Periportal widening may be seen in setting of hepatic fibrosis. Fatty atrophy of the pancreas. Multiple hypoattenuating lesions in the pancreatic head and body may represent sidebranch intraductal papillary mucinous neoplasms, better characterized on prior MRI. Hysterectomy. Mildly thick-walled decompressed urinary bladder. Colonic diverticulosis without diverticulitis. Ventral abdominal wall hernia containing fat and fluid. Right posterior soft tissue nerve stimulator with lead terminating in the thoracic intraspinal canal. Posterior spinal instrumented fusion of the lumbar spine. Mild anterolisthesis of L4 on L5. Degenerative changes of the spine. IMPRESSION: 1. Aortic annulus, and abdominal aortic, common iliac, external iliac, and femoral artery measurements in preparation for TAVR procedure as described above. 2. Aortic valve calcium score: Agatston 454, volume 450 mm3. Dictated by: Paola Dill MD The radiology attending physician has personally reviewed this study, and had reviewed and/or edited this written report and agrees with it. Electronically signed by: Jb Acosta M.D. Lauri Godinez MD IMG CT PROCEDURES Final Result * (ABNORMAL) POCT creatinine for contrast evaluation (10/07/2025 11:30 AM KNOWLEDGE ANALYST) Creatinine, POC 1.8(A) 0.6 - 1.5 mg/dL Comment:eGFR: 29 Blood 10/07/2025 11:3 0 AM KNOWLEDGE ANALYST Result [facility] Lauri Godinez MD POINT OF CARE TEST ORDERABLES Fi nal Result * (ABNORMAL) POCT lipid panel (09/06/2025 11:29 AM KNOWLEDGE ANALYST) Cholesterol, POC 130 <200 MG/DL HDL, POC 31(A) >=40 mg/dL Triglycerides, POC 297(A) <=149 mg/dL LDL Cholesterol POC 40 <=129 mg/dL Chol/HDL Ratio, POC 1.3 NONE Non-HDL Cholesterol, POC 99 NONE mg/dL Cholesterol Total, POC 130 30 - 199 mg/dL Capillary blood 09/06/2025 1 1:29 AM KNOWLEDGE ANALYST Darlene Gearrd NP POINT OF CARE TEST ORDERA BLES Final Result * Cardiology Document Scan (09/03/2025 3:15 PM KNOWLEDGE ANALYST) Anatomical Region Laterality Modality Other Chris Lunsford MD CV CARDIAC SERVICES PROCEDURES F inal Result * Cardiology Document Scan (09/03/2025) Anatomical Region Laterality Modality Other Allie Romero NP CV CARDIAC SERVICES PROCEDUR ES Edited Result - Final * Cardiology Document Scan (09/01/2025 3:12 PM KNOWLEDGE ANALYST) Anatomical Region Laterality Modality Other Wellington Nowak MD CV CARDIAC SERVICES PROCE DURES Final Result * Cardiology Document Scan (08/31/2025 3:06 PM KNOWLEDGE ANALYST) Anatomical Region Laterality Modality Other us Wellington Nowak MD CV CARDIAC SERVICES PROCE JOYCELYN Final Result * TRANSTHORACIC ECHO (TTE) COMPLETE W DOPPLER/CF WO CONTRAST (08/28/2025 1:39 PM KNOWLEDGE ANALYST) Estimated EF 70-75 % CONS SCIMAGE EF Mod BP 52 % CONS SCIMAGE Anatomical Region Laterality Modality Ultrasound 08/28/2025 12:5 1 PM KNOWLEDGE ANALYST Narrative 08/28/2025 3:11 PM KNOWLEDGE ANALYST [facility] Medical Group Cardiology [address], [place] [address] P:[phone] P:[phone] Echocardiographic Report Patient Name: SAL VARGAS L : 1950 Study Date: 08/28/2025 12:51:15 PM Sex: F Dough Maker: RAMON Location: [facility] Ref Provider: ALVIN LOPEZ [...] FINDINGS: Interpretation Site: Exam was interpreted at [facility]. Left Ventricle: Normal left ventricular systolic function. [...] By: Wellington Nowak MD 08/28/2025 3:10:21 PM KNOWLEDGE ANALYST Procedure Note Wellington Nowak MD - 08/28/2025 [facility] Medical Group Cardiology [address], [address], [place] [address] P:[phone] P:[phone] Echocardiographic Report Patient Name: SAL VARGAS L : 1950 Study Date: 08/28/2025 12:51:15 PM Sex: F Dough Maker: RAMON Location: [facility] Ref Provider: ALVIN LOPEZ [...] FINDINGS: Interpretation Site: Exam was interpreted at [facility]. Left Ventricle: Normal left ventricular systolic function. [...] By: Wellington Nowak MD 08/28/2025 3:10:21 PM KNOWLEDGE ANALYST us Alvin Lopez MD CV ECHO PROCEDURES Final Result * (ABNORMAL) eGFR (09/06/2024 2:12 PM KNOWLEDGE ANALYST) eGFR 39(L) >=60 mL/min/1. 73 m2 Comment: [...] last reviewed 2021. Blood 09/06/2024 2:12 PM KNOWLEDGE ANALYST 09/06/2024 2:29 PM KNOWLEDGE ANALYST us Justin Wing MD LAB BLOOD ORDERABLES Final Result [facility] Department [place] [address] * Diagnostic Mammogram Bilateral W Bib (04/08/2020 [...] Recently Relevant to Health Maintenance Insurance MEDICARE [facility] [email or web address] MEDICARE FOR LIFE Care Teams Rat Breeder Relationship Specialty Start Date End Date Adwoa Ordonez DO [address] [place] [id number] PCP - General Family Medicine 11/27/24
--- OUTSIDE RECORDS SUMMARY | 2025-10-14 15:54 | XMS_ITS | Data Portability ---
Author Organization [facility], Main Office Address [address] [place] [address] Care Team Providers Care Housecalls Nurse Name Role Phone AMISHA MONIQUE Primary Care Provider AMISHA MONIQUE Referring Provider Assessment Encounter Date [...] screening, QL, stool 2023 024 [email or web address] [address] [facility], [address], [address], [place], [address], 08:22:10 TSH, serum or plasma 2023 AURY Not available 22:39:06 T4, free, serum 2023 AURY Not available 22:26:00 vitamin B12, serum 2023 AURY Not available 23:26:12 folate, serum 2023 AURY Not available 23:26:16 Referral cardiologis t referral - Please call patient to schedule an appointment . Thank you. 2023 [email or web address] Castro Lopez MD, [address] [place] [address] [address], [place], [address], 08:34:04 Procedures None recorded. Surgeries None recorded. Imaging None recorded. Medication Orders piroxicam 20 mg capsule 2023 [place] [id number], [address] [facility], [place], [place], [id number], 16:39:21 quetiapine 100 mg tablet 2023 [place] [facility], [facility], [place], [address], 16:39:18 Patient TargetsNo targets recorded. Patient InstructionsNo instructions recorded. 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 Thank you. Referring Physician: Amisha Monique, Family Medicine, Encounter Date: 02/07/2024 Results Created Date Observation Date Name Description Value Unit Range Abnormal Flag Note LastModifiedBy Organization Detail LastModifiedTime 02/07/20 24 02/07/2024 CBC/C OMPLE TE BLD COUNT W/DIF F white blood cells 6.4 x10'3 /uL 4.2-10 .8 Not Available [facility] (Lab) [address] [place], [address], 02/07/2024 21:53:57 02/07/20 24 02/07/2024 CBC/C OMPLE TE BLD COUNT W/DIF F red blood cells 4.59 x10'6 /uL 3.80-5 .20 Not Available [facility] (Lab) [address] [place], [address], 02/07/2024 21:53:57 02/07/20 24 02/07/2024 CBC/C OMPLE TE BLD COUNT W/DIF F hemoglobin 10.2 g/dL 12.0-1 5.6 low Not Available [facility] (Lab) [address] [place], [address], 02/07/2024 21:53:57 02/07/20 24 02/07/2024 CBC/C OMPLE TE BLD COUNT W/DIF F hematocrit 34.8 % 35.7-4 5.7 low Not Available [facility] (Lab) [address] [place], [address], 02/07/2024 21:53:57 02/07/20 24 02/07/2024 CBC/C OMPLE TE BLD COUNT W/DIF F mean red cell volume 75.8 fL 82.0-9 9.0 low Not Available [facility] (Lab) [address] [place], [address], 02/07/2024 21:53:57 02/07/20 24 02/07/2024 CBC/C OMPLE TE BLD COUNT W/DIF F mean red cell hemoglobin 22.2 pg 27.0-3 3.0 low Not Available [facility] (Lab) [address] [place], [address], 02/07/2024 21:53:57 02/07/20 24 02/07/2024 CBC/C OMPLE TE BLD COUNT W/DIF F mean RBC HGB concentratio n 29.3 g/dL 31.0-3 6.0 low Not Available [facility] (Lab) [address] [place], [address], 02/07/2024 21:53:57 02/07/20 24 02/07/2024 CBC/C OMPLE TE BLD COUNT W/DIF F red cell distribution width 16.6 % 11.8-1 5.5 high Not Available [facility] (Lab) [address] [place], [address], 02/07/2024 21:53:57 02/07/20 24 02/07/2024 CBC/C OMPLE TE BLD COUNT W/DIF F platelets 285 x10'3 /uL 150-40 0 Not Available [facility] (Lab) [address] [place], [address], 02/07/2024 21:53:57 02/07/20 24 02/07/2024 CBC/C OMPLE TE BLD COUNT W/DIF F mean platelet volume 10.3 fL 9.0-12 .4 Not Available [facility] (Lab) [address] [place], [address], 02/07/2024 21:53:57 02/07/20 24 02/07/2024 CBC/C OMPLE TE BLD COUNT W/DIF F neutrophils 65.3 % 39.0-7 2.0 Not Available [facility] (Lab) [address] [place], [address], 02/07/2024 21:53:57 02/07/20 24 02/07/2024 CBC/C OMPLE TE BLD COUNT W/DIF F lymphocytes 18.0 % 16.0-4 7.0 Not Available [facility] (Lab) [address] [place], [address], 02/07/2024 21:53:57 04/16/02/07/2024 CBC/C OMPLE TE BLD COUNT W/DIF F monocytes 12.3 % 5.0-12 .0 high Not Available [facility] (Lab) [address] [place], [address], 02/07/2024 21:53:57 02/07/20 24 02/07/2024 CBC/C OMPLE TE BLD COUNT W/DIF F eosinophils 3.6 % 1.0-7. 0 Not Available [facility] (Lab) [address] [place], [address], 02/07/2024 21:53:57 02/07/2002/07/2024 CBC/C OMPLE TE BLD COUNT W/DIF F basophils 0.5 % 0.0-2. 0 Not Available [facility] (Lab) [address] [place], [address], 02/07/2024 21:53:57 02/07/20 24 02/07/2024 CBC/C OMPLE TE BLD COUNT W/DIF F immature granulocytes 0.3 % 0.00-0 .50 Not Available [facility] (Lab) [address] [place], [address], 02/07/2024 21:53:57 02/07/20 24 02/07/2024 CBC/C OMPLE TE BLD COUNT W/DIF F neutrophils, absolute count 4.20 x10'3 /uL 1.5-8. 0 Not Available [facility] (Lab) [address] [place], [address], 02/07/2024 21:53:57 02/07/20 24 02/07/2024 CBC/C OMPLE TE BLD COUNT W/DIF F lymphocytes, absolute count 1.16 x10'3 /uL 1.07-3 .43 Not Available [facility] (Lab) [address] [place], [address], 02/07/2024 21:53:57 02/07/20 24 02/07/2024 CBC/C OMPLE TE BLD COUNT W/DIF F monocytes, absolute count 0.79 x10'3 /uL 0.29-0 .99 Not Available [facility] (Lab) [address] [place], [address], 02/07/2024 21:53:57 02/07/20 24 02/07/2024 CBC/C OMPLE TE BLD COUNT W/DIF F eosinophils, absolute count 0.23 x10'3 /uL 0.02-0 .53 Not Available [facility] (Lab) [address] [place], [address], 02/07/2024 21:53:57 02/07/20 24 02/07/2024 CBC/C OMPLE TE BLD COUNT W/DIF F basophils, absolute count 0.03 x10'3 /uL 0.01-0 .08 Not Available [facility] (Lab) [address] [place], [address], 02/07/2024 21:53:57 02/07/20 24 02/07/2024 CBC/C OMPLE TE BLD COUNT W/DIF F immature granulocytes ,absolute 0.02 x10'3 /uL 0.00-0 .05 Not Available [facility] (Lab) [address] [place], [address], 02/07/2024 21:53:57 02/07/20 24 02/07/2024 CBC/C OMPLE TE BLD COUNT W/DIF F nucleated red blood cells 0.0 % -0 Not Available [facility] (Lab) [address] [place], [address], 02/07/2024 21:53:57 02/07/20 24 02/07/2024 CBC/C OMPLE TE BLD COUNT W/DIF F NRBC# 0.00 x10'3 /uL Not Available [facility] (Lab) [address] [place], [address], 02/07/2024 21:53:57 02/07/20 24 02/07/2024 CBC/C OMPLE TE BLD COUNT W/DIF F anisocytosis OCCASI ONAL Not Available [facility] (Lab) [address] [place], [address], 02/07/2024 21:53:57 02/07/20 24 02/07/2024 CBC/C OMPLE TE BLD COUNT W/DIF F poikilocytos is OCCASI ONAL Not Available [facility] (Lab) [address] [place], [address], 02/07/2024 21:53:57 02/07/20 24 02/07/2024 CBC/C OMPLE TE BLD COUNT W/DIF F hypochromia 1+ Not Available [facility] (Lab) [address] [place], [address], 02/07/2024 21:53:57 02/07/20 24 02/07/2024 CBC/C OMPLE TE BLD COUNT W/DIF F microcytosis OCCASI ONAL Not Available [facility] (Lab) [address] [place], [address], 02/07/2024 21:53:57 02/07/20 24 02/07/2024 HEMOG LOBIN A1C HA1C 7.0 % 4.0-6. 0 high Diabe elis Scree robert Crite ambreen: <5.7% Consi stent with absen ce of diabe elis 5.7-6 .4% Consi stent with incre ased risk for diabe elis (pred iabet es) >OR=6 .5% Consi stent with diabe elis REFER ENCE: Diabe elis Care 2015, 39(King ppl.1 ):s13 -s22 Not Available [facility] (Lab) [address] [place], [address], 02/07/2024 21:47:02 02/07/20 24 02/07/2024 BASIC METAB OLIC PANEL sodium 142 mmol/ L 137-14 5 Not Available [facility] (Lab) [address] [place], [address], 02/07/2024 22:11:55 02/07/20 24 02/07/2024 BASIC METAB OLIC PANEL potassium 4.1 mmol/ L 3.5-5. 1 Not Available [facility] (Lab) [address] [place], [address], 02/07/2024 22:11:55 02/07/20 24 02/07/2024 BASIC METAB OLIC PANEL chloride 110 mmol/ L 98-107 high Not Available [facility] (Lab) [address] [place], [address], 02/07/2024 22:11:55 02/07/20 24 02/07/2024 BASIC METAB OLIC PANEL carbon dioxide 22 mmol/ L 22-30 Not Available [facility] (Lab) [address] [place], [address], 02/07/2024 22:11:55 02/07/20 24 02/07/2024 BASIC METAB OLIC PANEL anion gap 14.1 mmol/ L 14-22 Not Available [facility] (Lab) [address] [place], [address], 02/07/2024 22:11:55 02/07/20 24 02/07/2024 BASIC METAB OLIC PANEL glucose 115 mg/dL 70-99 high Not Available [facility] (Lab) [address] [place], [address], 02/07/2024 22:11:55 02/07/20 24 02/07/2024 BASIC METAB OLIC PANEL BUN 33 mg/dL 8-19 high Not Available [facility] (Lab) [address] [place], [address], 02/07/2024 22:11:55 02/07/20 24 02/07/2024 BASIC METAB OLIC PANEL creatinine 1.32 mg/dL 0.66-1 .25 high Not Available [facility] (Lab) [address] [place], [address], 02/07/2024 22:11:55 02/07/20 24 02/07/2024 BASIC METAB OLIC PANEL GFR 40 Refer ence Range : [place] ge GFR Healt hy Adult : >60 [...] or ethni c subgr oups, such as [facility] nics. Outsi de the valid ated camacho [...] s/kdo qi/gf r_cal culat or Not Available [facility] (Lab) [address] [place], [address], 02/07/2024 22:11:55 02/07/20 24 02/07/2024 BASIC METAB OLIC PANEL calcium 9.7 mg/dL 8.4-10 .2 Not Available [facility] (Lab) [address] [place], [address], 02/07/2024 22:11:55 02/07/20 24 02/07/2024 LIPID PANEL cholesterol 183 mg/dL 140-19 9 NIH RYDER NSUS RECOM MENDA TION FOR TRISTEN STERO L: ADULT CHILD LOW RISK: <200 <170 BORDE RLINE : <200- 239 ----- HIGH RISK: >240 >200 Not Available [facility] (Lab) [address] [place], [address], 02/07/2024 22:11:57 02/07/20 24 02/07/2024 LIPID PANEL triglyceride s 227 mg/dL 0-150 high NIH RYDER NSUS REPOR T RECOM MENDA TION FOR TRIGL YCERI JOHNATHON: ADULT CHILD LOW RISK: <150 ----- BODER LINE: 150-1 99 ----- HIGH RISK: >200 ----- Not Available [facility] (Lab) [address] [place], [address], 02/07/2024 22:11:57 02/07/20 24 02/07/2024 LIPID PANEL HDL cholesterol 51 mg/dL 40- Not Available [facility] (Lab) [address] [place], [address], 02/07/2024 22:11:57 02/07/20 24 02/07/2024 LIPID PANEL [...] WILL NOT BE REPOR HERNAN. Not Available [facility] (Lab) [address] [place], [address], 02/07/2024 22:11:57 02/07/20 24 02/07/2024 HEPAT IC/LI JOE PANEL alkaline phosphatase 101 U/L 38-126 Not Available [facility] (Lab) [address] [place], [address], 02/07/2024 22:12:00 02/07/20 24 02/07/2024 HEPAT IC/LI JOE PANEL alanine aminotransfe rase 28 U/L 0-35 Not Available [facility] (Lab) [address] [place], [address], 02/07/2024 22:12:00 02/07/20 24 02/07/2024 HEPAT IC/LI JOE PANEL aspartate aminotransfe rase 43 U/L 15-37 high Not Available [facility] (Lab) [address] [place], [address], 02/07/2024 22:12:00 02/07/20 24 02/07/2024 HEPAT IC/LI JOE PANEL bilirubin, total 0.50 mg/dL 0.20-1 .30 Not Available [facility] (Lab) [address] [place], [address], 02/07/2024 22:12:00 02/07/20 24 02/07/2024 HEPAT IC/LI JOE PANEL bilirubin, conjugated (direct) 0.02 mg/dL 0.00-0 .30 Not Available [facility] (Lab) [address] [place], [address], 02/07/2024 22:12:00 02/07/20 24 02/07/2024 HEPAT IC/LI JOE PANEL biliurubin,u ncong. (indirect) 0.00 mg/dL 0.00-1 .1 Not Available [facility] (Lab) [address] [place], [address], 02/07/2024 22:12:00 02/07/20 24 02/07/2024 HEPAT IC/LI JOE PANEL total protein 7.2 g/dL 6.3-8. 2 Not Available [facility] (Lab) [address] [place], [address], 02/07/2024 22:12:00 02/07/20 24 02/07/2024 HEPAT IC/LI JOE PANEL albumin 4.2 g/dL 3.0-4. 4 Not Available [facility] (Lab) [address] [place], [address], 02/07/2024 22:12:00 02/07/20 24 02/07/2024 HEPAT IC/LI JOE PANEL globulin 3.0 g/dL 2.6-4. 2 Not Available [facility] (Lab) [address] [place], [address], 02/07/2024 22:12:00 02/07/20 24 02/07/2024 HEPAT IC/LI JOE PANEL A/G ratio 1.4 ratio 1.0-2. 0 Not Available [facility] (Lab) [address] [place], [address], 02/07/2024 22:12:00 02/07/20 24 02/07/2024 T4 FREE free T4 0.73 NG/dL 0.78-2 .19 low Not Available [facility] (Lab) [address] [place], [address], 02/07/2024 22:26:00 02/07/20 24 02/07/2024 VITAM IN D 25-HY DROXY [id number] 61.8 NG/mL 30-100 Vitam in D Statu s: Defic ient: <20 ng/mL Insuf ficie nt: 20-29 ng/mL Suffi cient : 30-10 0 ng/mL Not Available [facility] (Lab) [address] [place], [address], 02/07/2024 22:36:55 02/07/20 24 02/07/2024 TSH thyroid-stim ulating hormone 1.200 uIU/m L 0.465- 4.680 Not Available [facility] (Lab) [address] [place], [address], 02/07/2024 22:39:06 02/07/2002/07/2024 VITAM IN B12 (JEREMY MARLON ) vb12 >1000 pg/mL 239-93 1 high Not Available [facility] (Lab) [address] [place], [address], 02/07/2024 23:26:12 02/07/20 24 02/07/2024 FOLAT E, SERUM /PLAS MA folate >20.0 NG/mL 2.76-2 0.0 Not Available [facility] (Lab) [address] [place], [address], 02/07/2024 23:26:16 02/15/20 24 02/15/2024 IRON/ TIBC PANEL total iron binding capacity 387 mcg/d L 265-47 5 Not Available [facility] (Lab) [address] [place], [address], 02/15/2024 21:22:02 02/15/2002/15/2024 IRON/ TIBC PANEL % transferrin saturation 15 % 20-55 low Not Available [facility] (Lab) [address] [place], [address], 02/15/2024 21:22:02 02/15/2002/15/2024 IRON/ TIBC PANEL unsaturated iron bind capacity 329 mcg/d L 126-38 2 Not Available [facility] (Lab) [address] [place], [address], 02/15/2024 21:22:02 02/15/2002/15/2024 IRON/ TIBC PANEL iron 58 mcg/d L 42-175 Not Available [facility] (Lab) [address] [place], [address], 02/15/2024 21:22:02 04/24/20 24 02/15/2024 MEKHI TIN ferritin 11 NG/mL 11.1-2 64 low Not Available [facility] (Lab) [address] [place], [address], 02/15/2024 21:27:13 03/17/20 24 03/17/2024 COLOG UARD [...] is negat owen. TEST DESCR IPTIO N: [place] [facility] site algor ithmi c ashlie sis of [...] years or older , who are at [facility] for color ectal cance r (CRC) . Colog uard has been appro franci for use by the [place] FDA. The perfo rmanc e of Colog uard was estab lishe d in a cross secti onal study of [facility] adult s aged 50-84 . Colog [...] of , 0 [facility] risk for color ectal cance r [...] at www.c ezio edmonds.c om. Not Available [facility] [address], [place], [address], 03/23/2024 19:34:30 05/23/2005/23/2024 CBC/C OMPLE TE BLD COUNT W/DIF F white blood cells 5.6 x10'3 /uL 4.2-10 .8 Not Available [facility] (Lab) [address] [place], [address], 05/23/2024 19:49:33 05/23/20 24 05/23/2024 CBC/C OMPLE TE BLD COUNT W/DIF F red blood cells 4.63 x10'6 /uL 3.80-5 .20 Not Available [facility] (Lab) [address] [place], [address], 05/23/2024 19:49:33 05/23/20 24 05/23/2024 CBC/C OMPLE TE BLD COUNT W/DIF F hemoglobin 11.6 g/dL 12.0-1 5.6 low Not Available [facility] (Lab) [address] [place], [address], 05/23/2024 19:49:33 05/23/20 24 05/23/2024 CBC/C OMPLE TE BLD COUNT W/DIF F hematocrit 38.2 % 35.7-4 5.7 Not Available [facility] (Lab) [address] [place], [address], 05/23/2024 19:49:33 05/23/20 24 05/23/2024 CBC/C OMPLE TE BLD COUNT W/DIF F mean red cell volume 82.5 fL 82.0-9 9.0 Not Available [facility] (Lab) [address] [place], [address], 05/23/2024 19:49:33 05/23/20 24 05/23/2024 CBC/C OMPLE TE BLD COUNT W/DIF F mean red cell hemoglobin 25.1 pg 27.0-3 3.0 low Not Available [facility] (Lab) [address] [place], [address], 05/23/2024 19:49:33 05/23/20 24 05/23/2024 CBC/C OMPLE TE BLD COUNT W/DIF F mean RBC HGB concentratio n 30.4 g/dL 31.0-3 6.0 low Not Available [facility] (Lab) [address] [place], [address], 05/23/2024 19:49:33 05/23/20 24 05/23/2024 CBC/C OMPLE TE BLD COUNT W/DIF F red cell distribution width 16.1 % 11.8-1 5.5 high Not Available [facility] (Lab) [address] [place], [address], 05/23/2024 19:49:33 05/23/20 24 05/23/2024 CBC/C OMPLE TE BLD COUNT W/DIF F platelets 241 x10'3 /uL 150-40 0 Not Available [facility] (Lab) [address] [place], [address], 05/23/2024 19:49:33 05/23/2005/23/2024 CBC/C OMPLE TE BLD COUNT W/DIF F mean platelet volume 10.7 fL 9.0-12 .4 Not Available [facility] (Lab) [address] [place], [address], 05/23/2024 19:49:33 05/23/20 24 05/23/2024 CBC/C OMPLE TE BLD COUNT W/DIF F neutrophils 63.4 % 39.0-7 2.0 Not Available [facility] (Lab) [address] [place], [address], 05/23/2024 19:49:33 05/23/20 24 05/23/2024 CBC/C OMPLE TE BLD COUNT W/DIF F lymphocytes 20.8 % 16.0-4 7.0 Not Available [facility] (Lab) [address] [place], [address], 05/23/2024 19:49:33 05/23/20 24 05/23/2024 CBC/C OMPLE TE BLD COUNT W/DIF F monocytes 12.7 % 5.0-12 .0 high Not Available [facility] (Lab) [address] [place], [address], 05/23/2024 19:49:33 05/23/20 24 05/23/2024 CBC/C OMPLE TE BLD COUNT W/DIF F eosinophils 2.2 % 1.0-7. 0 Not Available [facility] (Lab) [address] [place], [address], 05/23/2024 19:49:33 05/23/20 24 05/23/2024 CBC/C OMPLE TE BLD COUNT W/DIF F basophils 0.5 % 0.0-2. 0 Not Available [facility] (Lab) [address] [place], [address], 05/23/2024 19:49:33 05/23/2005/23/2024 CBC/C OMPLE TE BLD COUNT W/DIF F immature granulocytes 0.4 % 0.00-0 .50 Not Available [facility] (Lab) [address] [place], [address], 05/23/2024 19:49:33 05/23/20 24 05/23/2024 CBC/C OMPLE TE BLD COUNT W/DIF F neutrophils, absolute count 3.54 x10'3 /uL 1.5-8. 0 Not Available [facility] (Lab) [address] [place], [address], 05/23/2024 19:49:33 05/23/20 24 05/23/2024 CBC/C OMPLE TE BLD COUNT W/DIF F lymphocytes, absolute count 1.16 x10'3 /uL 1.07-3 .43 Not Available [facility] (Lab) [address] [place], [address], 05/23/2024 19:49:33 05/23/2005/23/2024 CBC/C OMPLE TE BLD COUNT W/DIF F monocytes, absolute count 0.71 x10'3 /uL 0.29-0 .99 Not Available [facility] (Lab) [address] [place], [address], 05/23/2024 19:49:33 05/23/20 24 05/23/2024 CBC/C OMPLE TE BLD COUNT W/DIF F eosinophils, absolute count 0.12 x10'3 /uL 0.02-0 .53 Not Available [facility] (Lab) [address] [place], [address], 05/23/2024 19:49:33 05/23/20 24 05/23/2024 CBC/C OMPLE TE BLD COUNT W/DIF F basophils, absolute count 0.03 x10'3 /uL 0.01-0 .08 Not Available [facility] (Lab) [address] [place], [address], 05/23/2024 19:49:33 05/23/20 24 05/23/2024 CBC/C OMPLE TE BLD COUNT W/DIF F immature granulocytes ,absolute 0.02 x10'3 /uL 0.00-0 .05 Not Available [facility] (Lab) [address] [place], [address], 05/23/2024 19:49:33 05/23/20 24 05/23/2024 CBC/C OMPLE TE BLD COUNT W/DIF F nucleated red blood cells 0.0 % -0 Not Available [facility] (Lab) [address] [place], [address], 05/23/2024 19:49:33 05/23/20 24 05/23/2024 CBC/C OMPLE TE BLD COUNT W/DIF F NRBC# 0.00 x10'3 /uL Not Available [facility] (Lab) [address] [place], [address], 05/23/2024 19:49:33 05/23/20 24 05/23/2024 IRON/ TIBC PANEL total iron binding capacity 344 mcg/d L 265-47 5 Not Available [facility] (Lab) [address] [place], [address], 05/23/2024 20:03:33 05/23/20 24 05/23/2024 IRON/ TIBC PANEL % transferrin saturation 25 % 20-55 Not Available [facility] (Lab) [address] [place], [address], 05/23/2024 20:03:33 05/23/20 24 05/23/2024 IRON/ TIBC PANEL unsaturated iron bind capacity 259 mcg/d L 126-38 2 Not Available [facility] (Lab) [address] [place], [address], 05/23/2024 20:03:33 05/23/20 24 05/23/2024 IRON/ TIBC PANEL iron 85 mcg/d L 42-175 Not Available [facility] (Lab) [address] [place], [address], 05/23/2024 20:03:33 05/23/20 24 05/23/2024 MEKHI TIN ferritin 14 NG/mL 11.1-2 64 Not Available [facility] (Lab) [address] [place], [address], 05/23/2024 20:31:08 07/23/20 24 07/20/2024 MAMMO , scree robert, digit al, bilat eral No observ ation record ed. [facility] [address], [place], [address], 07/23/2024 15:12:17 Result Notes None recorded. Problems Name Problem SNOMED Code Status Onset Date Resolution Date Notes Provider Name and Address Organization Details Recorded Time Cellulitis 742305719 Active Not Available [facility] 3 02:52:17 Abscess 062595551 Active Not Available [facility] 3 02:52:17 Backache 792196651 Active Not Available [facility] 3 02:52:17 Dry eyes 676440300 Active Not Available [facility] 3 02:52:17 Liver function tests outside reference range 682656798 Active Not Available [facility] 3 02:52:17 Mammograph y abnormal 995505957 Active Not Available [facility] 3 02:52:18 Spinal stenosis of lumbar region 45176806 Active Not Available [facility] 3 02:52:18 Radiothera py follow-up 446030710 Active Not Available [facility] 3 02:52:18 Steatotic liver disease 131567939 Active Not Available [facility] 3 02:52:18 Abdominal pain 65849845 Active Not Available [facility] 3 02:52:18 Abnormal gait 62676664 Active Not Available [facility] 3 02:52:18 Osteoarthr itis of knee 753152444 Active Not Available [facility] 3 02:52:18 Tremor 50139415 Active Not Available [facility] 3 02:52:18 Degenerati on of lumbar interverte bral disc 47906434 Active Not Available [facility] 3 02:52:18 Muscle weakness 13361258 Active Not Available [facility] 3 02:52:18 Dyspnea 151849996 Active Not Available [facility] 3 02:52:18 Low back pain 017294833 Active Not Available [facility] 3 02:52:18 Persistent cough 174649416 Active Not Available [facility] 3 02:52:18 Enthesopat hy of hip region 03632147 Active Not Available [facility] 3 02:52:19 Knee pain Active Not Available [facility] 3 02:52:19 Bronchitis 64768153 Active Not Available [facility] 3 02:52:19 Drusen of optic disc 38626994 Active Not Available [facility] 3 02:52:19 Depressive disorder 86053149 Active Not Available [facility] 3 02:52:19 Fracture of distal phalanx of finger 90936531 Active Not Available [facility] 3 02:52:19 Arthritis 1913032 Active Not Available [facility] 3 02:52:19 Osteoarthr itis 963532003 Active Not Available [facility] 3 02:52:19 Hypothyroi dism 05557165 Active Not Available [facility] 3 02:52:19 Eczema 25929562 Active Not Available [facility] 3 02:52:19 Paronychia of finger 525358415 Active Not Available [facility] 3 02:52:20 Pain of hip region 49423356 Active Not Available [facility] 3 02:52:20 Cough 49589691 Active Not Available [facility] 3 02:52:20 Upper respirator y infection 18990458 Active Not Available [facility] 3 02:52:20 Hyperlipid emia 12568940 Active Not Available [facility] 3 02:52:20 Intertrigo 47598289 Active Not Available [facility] 3 02:52:20 Essential hypertensi on 04893202 Active Not Available [facility] 3 02:52:20 Diarrhea 78898206 Active Not Available [facility] 3 02:52:21 Chronic cough 66829708 Active Not Available [facility] 3 02:52:21 Urinary tract infectious disease 78023989 Active Not Available [facility] 3 02:52:21 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 87564089 Active Not Available [facility] 3 02:52:21 Paronychia 66015169 Active Not Available [facility] 3 02:52:21 Posterior rhinorrhea 65401979 Active Not Available [facility] 3 02:52:21 Heart murmur 80533848 Active Not Available [facility] 3 02:52:22 Neoplasm of uncertain behavior of skin 89755368 Active Not Available [facility] 3 02:52:22 Diabetes mellitus 55206392 Active 2017 Not Available [facility] 3 02:52:21 Body mass index 30+ - obesity 558779980 Active 2018 Not Available [facility] 3 02:52:17 Allergic rhinitis 52679089 Active 2018 Not Available [facility] 3 02:52:21 Obstructiv e sleep apnea syndrome 78335750 Active 2018 Not Available [facility] 3 02:52:21 Asthma 595828089 Active 2019 Not Available [facility] 3 02:52:18 Aortic valve stenosis 65699615 Active 2020 Not Available [facility] 3 02:52:20 Well controlled type 2 diabetes mellitus 157552798 Active 2022 Aishwarya Rodriguez MD [address], [address], [place], [address] , [facility] 3 15:11:37 Pain of left knee joint 0572501229329 07 Active 2022 EPIFANIO Montano, [facility] 3 14:56:41 Type 2 diabetes mellitus without complicati on 682084372 Active 2022 Amisha Monique MD [address], [address], [place], [address] , [facility] 3 14:12:06 Serum creatinine above reference range 002486453 Active 2022 Amisha Monique MD [address], [place], [address] , [facility] 3 09:07:15 Chronic diarrhea 061114193 Active 2022 Amisha Monique MD [address], [place], [address] , [facility] 3 19:03:03 Pain of left shoulder joint 3398537307999 9109 Active 2022 EPIFANIO Jorgensen, [facility] 3 14:11:37 Vitamin D deficiency 39889114 Active 2022 Amisha Monique MD [address], [place], [address] , [facility] 3 14:15:00 Chronic kidney disease 971956146 Active 2022 Aishwarya Rodriguez MD [address], [place], [address] , [facility] 3 12:14:26 Dyslipidem ia 354378444 Active 2022 Aishwarya Rodriguez MD [address], [place], [address] , [facility] 3 12:25:07 Osteoarthr itis of left knee joint 7535588043959 09 Active 2022 Rea Meadows Gilbert null, [place] - [facility] 3 15:01:20 Restless legs syndrome 89319731 Active 2023 Amisha Monique MD [address], [place], [address] , [facility] 4 19:12:45 Cobalamin deficiency 434299489 Active 2023 Amisha Monique MD [address], [place], [address] , [facility] 4 14:20:08 Dyspnea on exertion 05068638 Active 2023 Amisha Monique MD [address], [place], [address] , [facility] 4 14:24:41 Microcytic anemia 549227469 Active 2023 Amisha Monique MD [address], [place], [address] , [facility] 4 17:45:21 Iron deficiency anemia 80917630 Active 2023 Amisha Monique MD [address], [place], [address] , [facility] [employer] [email or web address] 4 09:59:21 Pain of multiple joints 38628035 Active 2023 OSVALDO Pfeiffer [address] [facility], [facility] [address], [place], [address] , [facility] [employer] 16:26:47 Problem Notes None recorded. Procedures Surgical History Date Name Laterality Status Provider Name and Address Organization Details Recorded Time 11/08/19 24 Transitional_Care_ Management completed Renetta Bourgeois RN [facility] [employer] 11/08/2023 17:04:27 cholecystectomy completed Not Available [facility] 12/22/2022 02:45:21 Heart Catheterization completed Not Available [facility] 12/22/2022 02:45:21 Ablation completed Not Available [facility] 12/22/2022 02:45:21 colonoscopy completed Not Available [facility] 12/22/2022 02:45:21 oophorectomy completed Not Available [facility] 12/22/2022 02:45:21 Hysterectomy completed Not Available [facility] 12/22/2022 02:45:21 Wrist arthroscopy/surger y completed Not Available [facility] 12/22/2022 02:45:21 Tonsillectomy completed Not Available [facility] 12/22/2022 02:45:21 Cataract Surgery completed Not Available [facility] 12/22/2022 02:45:21 Knee Replacement completed Not Available [facility] 12/22/2022 02:45:21 Imaging Results None recorded. [...] 1 ml SC x 1 12/20 completed [facility]-6332 3-0485-5 7 Not Available Not Available Not [...] n for injection in office 11/08 completed [facility]: 0003-049 02-10 Not Available Not Available Not [...] Available Not Available Not Available Fluarix Quad 9201-1626 (PF) 60 mcg (15 mcg x 4)/0.5 [...] Updated DateTime 4 160.02 cm 34.7 kg/m2 60178.1 g 106 /min 97 % 146/70 mm[Hg] Kari Hinojosa RN [facility] 4 14:08:21 Date Recorded Body height Body mass index (BMI) Body weight Body temperature Heart rate Oxygen saturation Systolic And Diastolic Provider Name and Address Organization Details Last Updated DateTime 4 160.02 cm 34.9 kg/m2 79709.7 g 99 [degF] 91 /min 97 % 138/80 mm[Hg] Renetta Bourgeois RN [facility] 4 14:44:00 Date Recorded Body height Provider Name an d Address Organization Details Last Updated DateTime 05/23/2024 160.02 cm Kari Hinojosa RN [facility] 05/23/2024 15:40:14 Date Recorded Body height Body mass index (BMI) Body weight Body temperature Heart rate Oxygen saturation Systolic And Diastolic Provider Name and Address Organization Details Last Updated DateTime 4 160.02 cm 34.7 kg/m2 76388.1 g 97.2 [degF] 73 /min 97 % 138/82 mm[Hg] Renetta Bourgeois RN [facility] 4 16:17:08 Social History Question Answer Notes LastModified by Organizat ion Details LastModified Time Tobacco Smoking Status Never Smoker Not Available [facility] 12/22/2022 02:37:36 Do You Have An Advance Directive? No MIGRATION.[id number] 8663 Information not available 12/22/2022 Are You Blind Or Do You Have Difficulty Seeing? No MIGRATION.013836 8233 Information not available 12/22/2022 What Is Your Level Of Caffeine Consumption? Moderate MIGRATION.601671 2925 Information not available 12/22/2022 How Much Tobacco Do You Chew? None MIGRATION.933686 0045 Information not available 12/22/2022 In The 14 Days Before Symptom Onset, Have You Had Close Contact With A Laboratory-confirm ed COVID-19 While That Case Was Ill? No MIGRATION.202540 9793 Information not available 12/22/2022 In The 14 Days Before Symptom Onset, Have You Had Close Contact With A Person Who Is Under Investigation For COVID-19 While That Person Was Ill? No MIGRATION.199184 6617 Information not available 12/22/2022 Are You Deaf Or Do You Have Serious Difficulty Hearing? No MIGRATION.098069 3802 Information not available 12/22/2022 What Type Of Diet Are You Following? REGULAR MIGRATION.186545 1528 Information not available 12/22/2022 Which Illicit Or Recreational Drugs Have You Used? None MIGRATION.808588 9543 Information not available 12/22/2022 What Was The Date Of Your Most Recent Tobacco Screening? 06/17/2021 MIGRATION.004649 0490 Information not available 12/22/2022 Do You Have Any Pets? Yes MIGRATION.239558 9285 Information not available 12/22/2022 What Is Your Relationship Status? MIGRATION.629487 7233 Information not available 12/22/2022 How Much Tobacco Do You Smoke? No MIGRATION.803857 5121 Information not available 12/22/2022 Has Tobacco Cessation Counseling Been Provided? No MIGRATION.848818 3044 Information not available 12/22/2022 Have You Recently Traveled Abroad? No MIGRATION.539586 2389 Information not available 12/22/2022 Do You Have Difficulty Walking Or Climbing Stairs? No MIGRATION.119247 4576 Information not available 12/22/2022 Sex: Female Functional Status Question Answer Note LastModified by Organizat ion Details LastModified Time Do you use any illicit or recreational drugs? No MIGRATION.652413 0747 Information not available 12/22/2022 What is your level of alcohol consumption? None MIGRATION.904225 4880 Information not available 12/22/2022 Do you or have you ever used smokeless tobacco? Never used smokeless tobacco MIGRATION.146456 2344 Information not available 12/22/2022 Do you have transportation difficulties? No MIGRATION.262395 2721 Information not available 12/22/2022 Are you able to walk independently without assistance or assistive devices? [employer]OREST MIGRATION.842271 2388 Information not available 12/22/2022 Do you have difficulty doing errands alone? No MIGRATION.066231 6326 Information not available 12/22/2022 Are you able to care for yourself independently? Yes MIGRATION.432334 5944 Information not available 12/22/2022 What is your occupation? Retired MIGRATION.816442 0277 Information not available 12/22/2022 Do you have difficulty dressing, bathing, grooming, or toileting? No MIGRATION.703667 6391 Information not available 12/22/2022 Do you or have you ever used e-cigarettes or vape? Never used electronic cigarettes MIGRATION.937674 5025 Information not available 12/22/2022 What is your exercise level? Occasional MIGRATION.238908 5183 Information not available 12/22/2022 Mental Status Question Answer Note LastModified by Organizat ion Details LastModified Time Do you have difficulty concentrating, remembering or making decisions? No MIGRATION.[id number] 6 Information not available 12/22/2022 Family History Relationship Description Onset Age of this Age Resolved Age Notes LastModified by Organization Details LastModified Time Father Heart disease MIGRATION.226 [id number] Not available 12/22/2022 02:45:24 Father Cerebrovascu lar accident MIGRATION.073 [id number] Not available 12/22/2022 02:45:25 Father Diabetes mellitus MIGRATION.586 2649106 Not available 12/22/2022 02:45:25 Mother Parkinson's disease MIGRATION.467 6956551 Not available 12/22/2022 02:45:25 Mother Diabetes mellitus MIGRATION.240 0457709 Not available 12/22/2022 02:45:25 Father Family history [...] virus, quadrivalent, preservative 2 completed Not Available [facility] 12/22/2022 03:00:03 COVID-19, mRNA, LNP-S, PF, 30 mcg/0.3 mL dose 2 completed [place] [employer]PER[employer] null, [facility] 09/19/2023 14:42:17 Influenza, split virus, quadrivalent, preservative 0 completed [place] [employer] SUPERVISOR null, [facility] 09/19/2023 14:42:17 Influenza, split virus, quadrivalent, preservative 8 completed [place] [employer] SUPERVISOR null, [facility] 09/19/2023 14:42:17 Influenza, split virus, quadrivalent, preservative 7 completed [place] [employer] SUPERVISOR null, [facility] 09/19/2023 14:42:17 Influenza, split virus, quadrivalent, preservative 6 completed [place] [employer] PROC[employer] SUPERVISOR null, [facility] 09/19/2023 14:42:17 Influenza, split virus, quadrivalent, preservative 6 completed Not Available [facility] 12/22/2022 03:00:04 Influenza, high-dose, quadrivalent, PF 1 completed Not Available [facility] 12/22/2022 03:00:04 Pneumococcal conjugate PCV 13 8 completed [place] [employer] SUPERVISOR null, [facility] 09/19/2023 14:42:17 pneumococcal polysaccharide PPV23 7 completed Not Available [facility] 12/22/2022 03:00:04 pneumococcal polysaccharide PPV23 5 completed Not Available [facility] 12/22/2022 03:00:04 Past Encounters Encounter ID Performer Location Encounter Start Date Encounter Closed Date Diagnosis/Indication Diagnosis SNOMED-CT Code Diagnosis ICD10 Code Diagnosis IMO Codes Diagnosis Note [id number] Terrancebee Stefan, [employer] [facility] [place] [address] [place] [address] 01/01/2021 00:00:00 01/01/2021 15:05:23 [id number] Amisha Monique MD [facility] [place] [address] [place] [address] 02/19/2021 00:00:00 02/19/2021 08:38:33 [id number] Amisha Monique MD [facility] [place] [address] [place] [address] 04/01/2021 00:00:00 04/22/2021 09:51:18 [id number] Amisha Monique MD [facility] [place] [address] [place] [address] 04/21/2021 00:00:00 04/21/2021 20:27:22 [id number] Amisha Monique MD [facility] [place] [address] [place] [address] 04/24/2021 00:00:00 04/24/2021 21:23:47 [id number] Amisha Monique MD [facility] [place] [address] [place] [address] 04/29/2021 00:00:00 04/29/2021 14:32:15 [id number] Amisha Monique MD [facility] [place] [address] [place] [address] 05/06/2021 00:00:00 05/06/2021 18:34:06 [id number] Aishwarya Rodriguez MD [facility] [place] [address] [place] [address] 05/18/2021 00:00:00 05/18/2021 14:36:08 [id number] [facility] [place] [address] [place] [address] 06/17/2021 00:00:00 06/17/2021 14:45:43 [id number] Amisha Monique MD [facility] [place] [address] [facility] [address] [place] [address] 07/28/2021 00:00:00 07/28/2021 18:19:21 [id number] Amisha Monique MD [facility] [address] [place] [address] 08/21/2021 00:00:00 08/21/2021 20:14:54 [id number] Amisha Monique MD [facility] [address] [place] [address] 09/08/2021 00:00:00 09/14/2021 10:57:19 [id number] Amisha Monique MD [facility] [address] [place] [address] 10/19/2021 00:00:00 10/19/2021 14:34:17 [id number] Amisha Monique MD [facility] [address] [place] [address] 10/29/2021 00:00:00 10/29/2021 17:10:01 [id number] Aishwarya Rodriguez MD [facility] [place] [address] [place] [address] 11/17/2021 00:00:00 11/17/2021 14:29:02 [id number] Amisha Monique MD [facility] [address] [place] [address] [address] [place] [address] 12/16/2021 00:00:00 12/20/2021 21:28:34 [id number] [facility] [place] [address] [place] [address] 12/22/2021 00:00:00 12/22/2021 14:24:18 [id number] Amisha Monique MD [facility] [place] [address] [place] [address] 12/22/2021 00:00:00 12/22/2021 16:19:24 [id number] Amisha Monique MD [facility] [place] [address] [place] [address] 01/13/2022 00:00:00 01/13/2022 13:04:28 [id number] TATIANNA Orozco [facility] [place] [address] [place] [address] 02/12/2022 00:00:00 02/12/2022 12:18:37 [id number] TATIANNA Orozco [facility] [place] [address] [place] [address] 03/05/2022 00:00:00 03/05/2022 10:06:19 [id number] Amisha Monique MD [facility] [place] [address] [place] [address] 03/15/2022 00:00:00 03/15/2022 12:23:30 [id number] Amisha Monique MD [facility] [place] [address] [place] [address] 03/30/2022 00:00:00 04/21/2022 11:05:00 [id number] Amisha Monique MD [facility] [place] [address] [place] [address] 04/21/2022 00:00:00 04/22/2022 08:04:02 [id number] Aishwarya Rodriguez MD [facility] [place] [address] [place] [address] 05/18/2022 00:00:00 05/18/2022 15:34:22 [id number] LEIDY Gomez [facility] [place] [address] [place] [address] [address] [place] [address] 06/09/2022 00:00:00 06/09/2022 17:40:02 [id number] Amisha Monique MD [facility] Primary Care [facility] [address] [facility] 140 [place] [address] 07/29/2022 00:00:00 07/29/2022 08:40:05 [id number] Amisha Monique MD [facility] Primary Care [address] [place] [address] 08/18/2022 00:00:00 08/18/2022 16:26:34 [id number] Aishwarya Rodriguez MD [facility] [place] [address] [place] [address] 08/23/2022 00:00:00 08/23/2022 19:45:45 [id number] Amisha Monique MD [facility] Primary Care [address] 140 [place] [address] 10/06/2022 00:00:00 10/06/2022 14:21:31 [id number] Andrés Hammond MD [facility] [place] [address] [facility] [address] [place] [address] 12/31/2022 14:48:25 01/03/2023 09:42:58 Pain of left knee joint 8655113580 36721 M25.562 [id number] Amisha Monique MD [facility] Primary Care [address] [place] [address] 01/04/2023 13:55:48 01/04/2023 14:34:40 Essential hypertension 37066638 I10 stableamlo dipine 5 mg daily and losartan/h ctz 100/25 mg dailyf/u in 3 months Type 2 johnny betes mellitus without complication 266930542 E11.9 due for labs from endocrinol ogy Dr. Rodriguez Hypothyroidism 59789373 E03.9 [id number] Amisha Monique MD [facility] Primary Care [address] [place] [address] 02/21/2023 15:14:56 02/21/2023 16:32:48 [id number] LEIDY Gomez [facility] Primary Care [facility] [address] [facility] 140 [facility] [address] 03/04/2023 12:27:01 03/04/2023 15:24:32 [id number] Andrés Hammond MD [facility] [place] [address] [facility] [address] [place] [address] 04/08/2023 14:01:13 04/08/2023 15:02:22 Pain of left shoulder joint 7937924469 1328431 M25.512 [id number] Amisha Monique MD [facility] Primary Care [address] [place] [address] 06/14/2023 13:58:14 06/14/2023 14:31:35 Diabetes mellitus 00783435 E11.9 check labs Essential hypertension 53357369 I10 stableamlo dipine 5 mg daily and losartan/h ctz 100/25 mg dailyf/u in 3 months Hyperlipidemia 23528770 E78.5 Z79.899 Hypothyroidism 22227175 E03.9 Vitamin D deficiency 347 23948 E55.9 [id number] Amisha Monique MD [facility] Primary Care [address] [facility] [address] 06/16/2023 15:11:58 11/23/2023 04:03:44 [id number] Aishwarya Rodriguez MD [facility] [place] [address] [place] [address] 06/22/2023 11:44:04 06/22/2023 12:29:58 Well controlled type 2 diabetes mellitus 000734052 E11.9 a1c of 6.4%- controlled on lowest dose metformin therapy 250 mg twice daily with meals. Recommende d she continue to incorporat e natural insulin director traffic and planning s such as pears, apples, cinnamon, alissa and sweet potatoes to help mobilize her endogenous insulin. Recommende d up to 150 minutes of moderate level activity/e xercise weekly. Chronic ki dney disease 928375915 N18.9 Refer to nephrology as Cr jumped from 1.3 to 1.63 mg/dL- recently placed on PPI therapy- advised to stop until she follows with nephrology - she was encouraged to drink up to 64 ozs of water and stay hydrated. She is on lowest dose metformin with ideal A1C control. Hypothyroidism 91294305 E03.9 Continue on unithroid 100 mcg daily [...] and minerals and reduce inflammati on. Dyslipidemia 011274168 E 78.5 Continue statin therapy as LDL [...] answered and refills necessary at visit today. [id number] Amisha Monique MD [facility] Primary Care [facility] [address] [facility] [address] [place] [address] 07/06/2023 14:58:32 07/22/2023 18:48:25 [id number] Andrés Hammond MD [facility] [place] [address] [facility] [address] [place] [address] 07/13/2023 14:57:18 07/13/2023 16:57:23 Osteoarthritis of left knee joint 4555265104 88523 M17.12 [id number] Amisha Monique MD [facility] Primary Care [facility] [address] [facility] [address] [place] [address] 08/16/2023 15:21:18 08/16/2023 16:05:28 [id number] Amisha Monique MD [facility] Primary Care [facility] [address] [facility] [address] [place] [address] 09/19/2023 14:25:37 09/19/2023 15:14:12 Chronic diarrhea 960492520 K52.9 ok to do brief trial off metformin to see if it helps diarrheare ferral for Dr. Quinones given [id number] Andrés Hammond MD [facility] [place] [address] [place] [address] 09/23/2023 14:38:29 09/23/2023 16:46:25 Pain of left shoulder joint 0050670070 [id number] M25.586 [id number] Amisha Monique MD [facility] Primary Care [address] 140 [place] [address] 11/08/2023 16:54:27 11/08/2023 17:32:00 Transition of care 6579162776 105 Z75.8 Diabetes mellitus 504917 09 E11.9 stay off metformin due to GI s/e and repeat a1c in 3 months Restless l egs syndrome 99656986 G25.81 increase ropinirole up to 2 po qhs and call with update in 4 weeks [id number] Amisha Monique MD [facility] [address] [place] [address] [address] [place] [address] 12/26/2023 11:44:35 12/28/2023 10:15:18 [id number] Amisha Monique MD [facility] Primary Care [facility] [address] [facility] [address] [place] [address] 02/07/2024 14:04:14 02/07/2024 14:34:31 Screening for malignant neoplasm of colon 155211154 Z12.11 Chronic ki dney disease 567568056 N18.[address] Kanugo Diabetes mellitus 455762 09 E11.9 stable off metforminc an't tolerate due to GI s/esees podiatry and ophtho Essential hypertension 22185362 I10 stableamlo dipine 5 mg daily and losartan/h ctz 100/25 mg dailyf/u in 3 months 02/07/24: stable Dyslipidemia 721046157 E 78.5 Z79.899 Hypothyroidism 59213060 E03.9 Vitamin D deficiency 347 03287 E55.9 Cobalamin deficiency 190 301196 E53.8 Dyspnea on exertion 6084 5006 R06.09 feels more sob than usual, saw cardiology in October but has noticed it since then [id number] Amisha Monique MD [facility] Primary Care [address] [place] [address] 02/15/2024 16:00:04 02/15/2024 16:33:30 [id number] OSVALDO Pfeiffer [facility] Primary Care [address] [place] [address] 04/17/2024 14:31:28 04/17/2024 15:55:16 [id number] OSVALDO Pfeiffer [facility] Primary Care [address] [place] [address] 05/23/2024 15:37:01 05/25/2024 15:29:41 [id number] OSVALDO Pfeiffer [facility] Primary Care [address] [place] [id number] 08/07/2024 15:55:55 08/07/2024 16:45:05 Renewal of prescription [id number] Z76.0 Pain of mu ltiple joints 83751952 M25.50 pain to moraima lower extremitie s, low backRom and strength continue to be limiteduna ble to walk through the grocery store/[email or web address] ss parking lotparking placard informatio n to be filled out Health Concerns Section Related Observation LastModified by Organization Detai ls LastModified Time None Recorded Concern Status LastModified by Organization Details LastModified Time None Recorded Advance Directives Directive N: Payers Insurance Date Sequence Insurance Name Policy Number Policy Palacios Covered Member ID Palacios Member ID Guarantor Name 08/04/2024 1 [place] Katelin Urias Herve [id number] Katelin Urias Herve 08/13/2024 2 FOR LIFE ( - MEDICARE SUPPLEMENT) Aneesh Edgar [id number] Katelin Urias Herve Notes Date Note Type [...] Monique MD [address], [place], [address], [employer] 03/11/2024 17:23:06 08/07/2024 text/html pt is here for f/u OSVALDO Pfeiffer [address], [place], [address], [employer] 08/07/2024 16:41:02 OBGyn Episode No OBEpisode recorded.
--- OUTSIDE RECORDS SUMMARY | 2025-10-14 15:54 | XMS_ITS | Encounter Summary ---
Author Organization [facility] Address [address] [place] [address] Care Team Providers Care Senior Linux Unix Engineer Name Role Phone Amisha Monique MD Primary Care Provider [phone] Encounter Details Date Type Department Care Team (Late st Contact Info) Description 10/26/2022 Telephone [facility] SCHEDULING [address] [place] [address] Adriel Schwab MD [address] [place] [address] Social History Tobacco Use Types Packs/Day Years Used Date Smoking Tobacco: Never Smokeless Tobacco: Never Alcohol Use Standard Drinks/Week Comments No 0 (1 standard drink = 0.6 oz pur e alcohol) Comments No Sex and Gender Information Value Date Recorded Sex Assigned at Not on file 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 Would like a sooner appt. Cannot come at 8 am because she watchesher grandson. Please contact patient. [phone]. 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 [phone] PCP - General 04/14/18 documented as of this encounter
--- OUTSIDE RECORDS SUMMARY | 2025-10-14 15:54 | XMS_ITS | Patient Health Record ---
Author Organization [facility] , Address [address] [place] [address] Care Team Providers Care Margarine Churn Operator Name Role Phone Noékevjanina Amisha Primary Care Provider Unavailab Castro Wu Unavailable [phone] Andrés Hammond Unavailable Unavailable Allergies No Known Allergies Reason For Referral No Information Medications Medication SIG (Take, Route, Frequency, Duration) Notes Start Date End Date Status traMADol HCl 50 MG Tablet 1 tablet as ne eded Orally every 4-6 hours; Duration: 10 days 07/15/2021 Active metFORMIN HCl Active Montelukast Sodium A ctive Aspirin Active Crestor Active Melatonin Active PARoxetine HCl Activ e SEROquel Active Trulicity Active Piroxicam Active Albuterol Active hydroCHLOROthiazide Active Losartan Potassium A ctive Levothyroxine Sodium Active Liothyronine Sodium Active Detrol Active Glucophage XR Active Vitamin D-3 Active Social History Section Notes: She is a nonsmoker. She does not drink. She denies history of drug or chemical abuse. She is and lives at home with a healthy . She achieved some college education. She is retired since 2012. She rates her general state of health as good. She is a nonsmoker. She does not drink. She denies history of drug or chemical abuse. She is and lives at home with a healthy . She achieved some college education. She is retired since 2012. She rates her general state of health as good. Problems Problem Type SNOMED Code ICD Code Onset Dates Problem Status W/U Status Risk Notes Problem Degenerative spondylolisthesis (8405783) Degenerative spondylolisthesis (M43.10) Active confirmed Problem Acquired spondylolisthesis (164951068) Spondylolisthesis of lumbar region (M43.16) Active confirmed Problem Lumbosacral spondylosis without myelopathy (30274392) Facet degeneration of lumbar region (M47.816) Active confirmed Problem Osteoporosis (52428527) Osteoporosis (M81.0) Active confirmed Problem Degenerative disc disease (95280542) DDD (degenerative disc disease), lumbar (M51.36) Active confirmed Plan Of Treatment Pending Test Test Name Order Date CBC With Differential/Platelet PT AND PTT 07/30/2021 Chem-Comprehensive 07/30/2021 lumbar fusion 07/30/2021 Insurance Providers Payer Name Payer Address Payer Phone Subscriber Number Group Number Insured Name Patient Relationship to Insured Coverage Start Date Coverage End Date Medicare [place] [address] [address] [place] [phone] [id number] Katelin Edgar Self - patient is the insured [employer] [address] [place] [address] [id number] Katelin Edgar Self - patient is the insured Medical (General) History Medical History History ICD Code Optic Nerve Head Drusen Arthritis Dry Eyes Fatty Liver Hypothyroidism High Cholesterol High Blood Pressure Eczema Heart Murmur Diabetes Asthma - shortness of breath Endometriosis Depression Spinal stenosis Back pain Lumbar radiculopathy She admits to a history of emotional/psy chiatric disorder She denies history of hospitalization fo r psychiatric condition She denies history of drug or chemical d ependency Surgical History Surgery Date(Month/Year) T & A 1955 Heart Cath 1957 Oopherectomy 1977 Hysterectomy 1988 Left wrist ORIF 2004 Deviated Septum Cholecystectomy 2007 broke rt wrist/ cast 2011 Rt Leg Vein ablation 2014 Lt Leg Vein Ablation 2017 Bilateral Cataracts 2017 Rt TKR 2017 Hospitalization History Reason Date(Month/Year) Surgeries
== END 2025-10-14 14:01 | disposition home or self-care (01) ==
PROVIDERS: PCP Family Medicine
DX: I35.0 Nonrheumatic aortic (valve) stenosis (principal)
CPT/HCPCS: 36415; 80048; 85025; 86850; 86900; 86901